=== PATIENT | female | born 1960 | race Caucasian/White ===

== ENCOUNTER 2020-10-03 23:17 | Emergency (ER) | payer MEDICAID, SELFPAY ==
[2020-10-03 23:19] VITALS: BP 98/62; PULSE 96; RESP 18; TEMP 37; O2SAT 98; BMI 18.9
--- NOTE | 2020-10-03 23:48 | EKG12_ITS ---
Test Reason : WOUND Blood Pressure : / mmHG Vent. Rate : 090 BPM Atrial Rate : 090 BPM P-R Int : 092 ms QRS Dur : 072 ms QT Int : 352 ms P-R-T Axes : 071 006 -34 degrees QTc Int : 430 ms Sinus rhythm with short VT with occasional Premature ventricular complexes Low voltage QRS (Limb Leads) Nonspecific ST abnormality Abnormal ECG Confirmed by MAGUI PEÑA, AGUEDA ([id number]), film and video editor JORGE WILL ([id number]) on 10/08/2020 10:21:34 AM Referred By: ANDREINA Confirmed By:AGUEDA KILGORE MD
--- NOTE | 2020-10-04 00:09 | RAD_ITS ---
EXAM: XR CHEST, 1 VIEW : 1960 CLINICAL INDICATION: pain TECHNIQUE: Frontal view of the chest. This report was created using [employer] report generation technology. COMPARISON: 01/08/2016 FINDINGS: LUNGS AND PLEURAL SPACES: Unremarkable. No consolidation or edema. No pneumothorax. No effusion. HEART: Unremarkable. Cardiac silhouette not enlarged. MEDIASTINUM: Central airways and mediastinal contour are unremarkable. BONES/JOINTS: There is extensive orthopedic hardware from posterior fusion of the entire thoracic spine and upper lumbar spine. SOFT TISSUES: Unremarkable. RAD/Chest 1 View (Portable) IMPRESSION: No acute findings in the chest. at 0105 Reported and signed by: Miko Cole MD Electronically Signed: Miko Cole MD at 1:04 EDT Tel , Service support ,
--- NOTE | 2020-10-04 00:32 | EX.ED.DYSGE1 ---
HPI History of Present Illness Chief Complaint: Wound Informant: patient and family Onset/Context/Timing Onset: Days Context: Sudden Onset Timing: Continuous Quality: Red swollen area superior aspect of incision site to the right Location: Abscess per prior documentation Current Severity: Moderate Maximum Severity: Moderate Worsened by: Nothing specific Relieved by: Nothing Associated Symptoms Associated Symptoms: Chills Narrative Narrative: Patient is an elderly woman who had spine surgery/fusion by Dr. London at [facility] 9 weeks ago. She was seen on Thursday by Dr. London. She presents now because of a red swollen area with drainage. She reports shaking chills. She does not believe she had a fever. She denies antibiotic allergies. She denies paresthesia, anesthesia motors. She states she is in pain. Prior similar symptoms: No Recent Illness/Hospitalization: Yes PFSH PFSH Home Medications diclofenac potassium [Cambia] 50 mg PO Q6H PRN PRN 01/08/16 [History Last Taken 01/08/16] Allergy/AdvReac Type Severity Reaction Status Date / Time acetaminophen [From Vicodin] AdvReac Nausea Verified 10/03/20 23:22 codeine AdvReac Nausea Verified 10/03/20 23:22 hydrocodone [From Vicodin] AdvReac Nausea Verified 10/03/20 23:22 Surgical History (Updated 10/04/20 @ 00:[address] Cody Turner MD) H/O spinal fusion Social History (Updated 10/04/20 @ 00:[address] Cody Turner MD) household members: family Smoking Status: Former smoker alcohol intake: current alcohol intake frequency: other substance use type: does not use ROS ROS ED Constitutional Constitutional ED: Reports chills and sweats; Denies fever(s), subjective or weight loss Eyes Eyes: Denies blurry vision, change in vision or diplopia ENT ENT ED: Denies ear pain, rhinorrhea or sore throat Cardiovascular Cardiovascular: Denies chest pain, orthopnea, palpitations, paroxysmal nocturnal dyspnea or racing heartbeat Respiratory/Chest Respiratory/Chest: Denies cough, dyspnea, dyspnea on exertion, orthopnea or paroxysmal nocturnal dyspnea Gastrointestinal Gastrointestinal: Reports nausea; Denies abdominal pain, constipation, diarrhea or vomiting Genitourinary Genitourinary ED: Denies dysuria, hematuria or urinary frequency Musculoskeletal Musculoskeletal: Reports back pain; Denies arthralgias, myalgias or neck pain Integumentary Reports abscess and rash Neurologic Neurologic: Reports weakness; Denies headache(s) or paresthesias Psychiatric Psychiatric: Reports depression Allergic/Immunologic Allergic/Immunologic ED: Denies mouth swelling, tongue swelling or urticaria EXAM Physical Exam Const Vital Signs: 10/03/20 23:19 10/04/20 01:14 Temperature 98.6 F 98.6 F Temperature Source Temporal Temporal Pulse Rate 96 91 Respiratory Rate 18 18 Blood Pressure 98/62 95/60 Blood Pressure Mean 74 71 Pulse Ox 98 98 Oxygen Delivery Method Room Air Room Air Positive well nourished and well developed General Appearance ED: well developed and other Patient appears pale. She does not appear well. Appears uncomfortable. ; Negative for pallor HEENT Reports TM's clear and dry mucous membranes HEENT Narrative: Nares patent. Ears normal. Head is atraumatic normocephalic. Negative for tenderness Tympanic Membrane ED: Yes TM's clear Mouth ED: Yes dry mucous membranes Mouth: dry mucous membranes Eyes PERRL and EOMs intact bilaterally General Eye ED: Yes pale conjunctiva; Negative for scleral icterus Neck no lymphadenopathy, supple and no JVD Neck Narrative: Trachea is midline. There is no carotid bruit. Chest Wall inspection of chest normal and palpation of chest normal Resp normal respiratory effort and clear to auscultation bilaterally Cardio regular rate, regular rhythm, S1 normal heart sound and S2 normal heart sound GI normal to inspection, nondistended, normoactive bowel sounds and non-tender Palpation: soft Back/Spine no CVA tenderness Cervical Spine: Negative for cervical spine tenderness Thoracic Spine / Upper Back: thoracic spinal tenderness and paraspinal muscle tenderness Extremity normal to inspection General Extremety ED: Negative for tenderness Neuro oriented x3, CN's II-XII intact bilaterally and no sensory deficits noted Sensorium / Orientation: alert Motor Exam: strength 5/5 throughout Psych mental status grossly normal Mood & Affect: depressed Skin General Skin Exam: other Patient has an abscess that is to the left of the superior aspect of the incision site with purulent thick green drainage noted. ; Negative for jaundice or pallor MDM MDM MDM Narrative Medical decision making narrative: With shaking chills concern patient is septic. Septic work-up was undertaken. She was started on piperacillin and vancomycin for streptococcal and staphylococcal coverage. Case was discussed with Dr. London. He agrees that the abscess needs to be drained. Will drain and culture. Spoke with the supervisor aircraft maintenance at [facility]. Patient will be transferred. Plan is MedSurg telemetry. If she is septic shock based on lactate will need to rediscuss with supervisor aircraft maintenance and Dr. London. Lab Data Attestation: I reviewed the patient's lab results. Lab results narrative: Lactate is normal. Comprehensive metabolic panel is remarkable sodium 131. Liver enzymes are elevated. There are no comparisons. Coags are normal. White count is pending. Labs: Laboratory Results - last 24 hr 10/04/20 10/04/20 10/04/20 00:25 00:25 00:25 WBC 13.8 H RBC 3.88 L Hgb 11.5 L Hct 36.0 L MCV 92.8 MCH 29.6 MCHC 31.9 L RDW Std Deviation 45.6 H RDW Coeff of Shelly 13.3 Plt Count 407 MPV 8.7 Immature Gran % (Auto) 0.600 Neut % (Auto) 77.7 H Lymph % (Auto) 12.0 L [place] % (Auto) 9.4 Eos % (Auto) 0.2 Baso % (Auto) 0.1 Absolute Neuts (auto) 10.7 H Absolute Lymphs (auto) 1.65 Nucleated RBC % 0 PT 14.3 INR 1.2 APTT 36.7 H Sodium 131 L Potassium 3.8 Chloride 99 Carbon Dioxide 24.0 Anion Gap 8 BUN 17 Creatinine 0.59 Estim Creat Clear Calc 70.43 Est GFR (MDRD) Af Amer 134 Est GFR (MDRD) Non-Af 111 BUN/Creatinine Ratio 28.9 H Glucose 111 H Lactic Acid Calcium 8.9 Total Bilirubin 0.60 AST 53 H ALT 73 H Alkaline Phosphatase 153 H Total Protein 7.8 Albumin 3.5 Globulin 4.3 H Albumin/Globulin Ratio 0.8 L 10/04/20 00:25 WBC RBC Hgb Hct MCV MCH MCHC RDW Std Deviation RDW Coeff of Shelly Plt Count MPV Immature Gran % (Auto) Neut % (Auto) Lymph % (Auto) [place] % (Auto) Eos % (Auto) Baso % (Auto) Absolute Neuts (auto) Absolute Lymphs (auto) Nucleated RBC % PT INR APTT Sodium Potassium Chloride Carbon Dioxide Anion Gap BUN Creatinine Estim Creat Clear Calc Est GFR (MDRD) Af Amer Est GFR (MDRD) Non-Af BUN/Creatinine Ratio Glucose Lactic Acid 0.8 Calcium Total Bilirubin AST ALT Alkaline Phosphatase Total Protein Albumin Globulin Albumin/Globulin Ratio Radiography Chest X-Ray - ED: 1 View, Read by ED Physician (X-ray was interpreted by me at 0105), Heart, Lungs, Mediastinum, Bony Structures and No Acute Disease Diagnostic Testing: Radiology Impression Chest X-Ray 10/04/20 00:09 IMPRESSION: No acute findings in the chest. at 0105 Reported and signed by: Miko Cole MD Electronically Signed: Miko Cole MD at 1:04 EDT Tel , Service support , Procedures Other Procedures Procedure(s): Patient was fit for incision and drainage of abscess. The area was prepped draped sterile manner. The area was nice x1% lidocaine by local transient field block. Incision was made. There was thick green purulent material noted. Loculation was undertaken with more purulent material. Culture was obtained. Cavity was irrigated. Wick was placed. Of note the abscess depth is to the lucio. Size of cavity 4 to 5 cm diameter and depth to the spinal lucio. Discharge Plan Triage Chief Complaint: Wound ED Provider: Cody Turner Dx/Rx/DC Orders Clinical Impression: Complication, postoperative infection, Abscess or cellulitis of back, Sepsis Prescriptions: No Action diclofenac potassium [Cambia] 50 MG Powd.Pack 50 mg PO Q6H PRN PRN (Reason: Pain) RF: 0 Primary Care Provider: [facility] Doctor,Out of Referrals: [facility] Doctor,Out of [Primary Care Provider] - Disposition Disposition: Acute Care Hospital Discharge Location: [facility]
[2020-10-04] MEDS: Morphine 4 MG/ML Syringe IV ×2 (00:45→05:04)
[2020-10-04] MEDS: Ondansetron ODT 4 MG Tablet PO (00:45)
[2020-10-04 00:57] LABS: International Normalized Ratio 1.2; Prothrombin Time (Protime)PT. 14.3 SECONDS (11.7-14.9)
[2020-10-04 00:58] LABS: ALB/GLOB Ratio 0.8 RATIO (0.9-2.4); AST(SGOT) 53 U/L (15-37); Alanine Aminotransfer ALT/SGPT 73 U/L (13-56); Albumin, Serum 3.5 g/dL (3.2-5.0); Alkaline Phosphatase 153 U/L (45-117); Anion Gap 8 (5-15); BUN 17 mg/dL (7-18); BUN/Creat Ratio 28.9 RATIO (10-20); Calcium,Total 8.9 mg/dL (8.5-10.1); Chloride 99 mmol/L (98-107); Creatinine, Serum 0.59 mg/dL (0.55-1.02); EST Glomerular Filtration Rate 111 mL/min (>60); Est Glom Filt Rate - Afr Amer 134 mL/min (>60); Estimated Creatinine Clearance 70.43 ml/min; Globulin 4.3 g/dL (2.2-4.2); Glucose 111 mg/dL (74-106); Partial Thromboplast Time 36.7 Seconds (24.1-36.2); Potassium 3.8 mmol/L (3.5-5.1); Protein, Total 7.8 g/dL (6.4-8.2); Sodium Level 131 mmol/L (136-145)
[2020-10-04 01:05] LABS: Lactic Acid 0.8 mmol/L (0.4-1.9)
[2020-10-04] MEDS: 0.9% Normal Saline 1,000 ML 250 ML IV (01:09)
[2020-10-04] MEDS: Lidocaine 1% (20 ml mdv) 20 ML Vial INFILT (01:10)
[2020-10-04 01:14] VITALS: BP 95/60; PULSE 91; RESP 18; TEMP 37; O2SAT 98
[2020-10-04 01:45] LABS: Absolute Lymphocyte Count 1.65 X10^3/uL (0.83-4.51); Absolute Neutrophil Count 10.7 X10^3/uL (2.0-7.7); Basophil# 0.02 X10^3/uL; Basophil% 0.1 % (0-1); Eosinophil# 0.03 X10^3/uL; Eosinophils% 0.2 % (0-5); Hemoglobin 11.5 g/dL (12.0-15.0); Lymphocyte # 1.65 X10^3/ul (0.83-4.51); Mean Corp Hgb Conc 31.9 g/dL (32-36); Mean Corpuscular Hgb 29.6 pg (27.0-32.0); Mean Corpuscular Volume 92.8 fL (81-99); Mean Platelet Vol. 8.7 fl (6.2-12.0); Monocyte% 9.4 % (0-10); NRBC Flagged by Analyzer 0 % (0-5); Neutrophil # 10.68 X10^3/uL (2.7-7.7); Neutrophil % 77.7 % (47-70); Platelet Count 407 K/mm3 (150-450); RBC Distribution Width CV 13.3 % (11.6-14.6); RBC Distribution Width SD 45.6 fl (35.1-43.9); Red Blood Count 3.88 M/mm3 (4.2-5.4); White Blood Count 13.8 K/mm3 (4.4-11.0)
[2020-10-04 02:00] VITALS: BP 121/83; PULSE 105; RESP 24; TEMP 36.6; O2SAT 96
[2020-10-04 02:52] VITALS: BP 91/61; PULSE 100; RESP 22
[2020-10-04 03:00] VITALS: BP 95/59; PULSE 106; RESP 24; TEMP 36.6; O2SAT 96
[2020-10-04 04:00] VITALS: BP 106/68; PULSE 91; RESP 24; TEMP 37.2; O2SAT 97
== END 2020-10-04 05:41 | disposition short-term general hospital (02) ==
PROVIDERS: Emergency Provider Emergency Medicine
DX: T81.40XA Infection following a procedure, unspecified, initial encounter (principal); T81.44XA Sepsis following a procedure, initial encounter; L03.312 Cellulitis of back [any part except buttock and flank]; L02.212 Cutaneous abscess of back [any part, except buttock and flank]; Y83.8 Other surgical procedures as the cause of abnormal reaction of the patient, or of later complication, without mention of misadventure at the time of the procedure; Y92.9 Unspecified place or not applicable; Z98.890 Other specified postprocedural states; Z87.891 Personal history of nicotine dependence
CPT/HCPCS: 10060; 71045; 80053; 83605; 85025; 85610; 85730; 87040; 87070; 87077; 87149; 87186; 87205; 87426; 93005; 96361; 96365; 96366; 96367; 99285; J7030; J7050; A4216

== ENCOUNTER 2020-10-14 14:03 | Inpatient (IN) | payer MEDICAID, SELFPAY ==
[2020-10-14 14:17] VITALS: BP 154/83; PULSE 86; RESP 16; TEMP 36.9; O2SAT 98; BMI 20.9
[2020-10-14] MEDS: Acetaminophen 500 MG Tablet 1000 MG PO ×2 (15:35→21:41)
[2020-10-14] MEDS: Cefazolin 2 GM in 0.9% Normal Saline 100 ML IV ×2 (15:35→21:42)
[2020-10-14] MEDS: oxyCODONE 5 MG Tablet PO (15:36)
[2020-10-14] MEDS: Pregabalin 50 MG Capsule 100 MG PO ×2 (15:37→23:10)
[2020-10-14] MEDS: 0.9% Saline Lock 10 ML Syringe IV ×3 (15:42→22:35)
--- NOTE | 2020-10-14 18:00 | NURSING ---
Refused to apply TLSO brace, patient using bsc stand pivot for nursing but said she is only to wear the brace when with therapy. 1:1 education provided.
[2020-10-14 19:39] VITALS: BP 143/84; PULSE 87; RESP 16; TEMP 36.9; O2SAT 99
[2020-10-14] MEDS: traZODone 50 MG Tablet PO (21:41)
[2020-10-14] MEDS: tiZANidine HCl 2 MG Tablet 4 MG PO (22:00)
[2020-10-15] MEDS: oxyCODONE 5 MG Tablet PO ×4 (01:37→17:06)
[2020-10-15] MEDS: Pregabalin 50 MG Capsule 100 MG PO ×3 (06:26→22:16)
[2020-10-15] MEDS: Acetaminophen 500 MG Tablet 1000 MG PO ×3 (06:26→22:16)
[2020-10-15] MEDS: 0.9% Saline Lock 10 ML Syringe IV ×3 (06:27→21:42)
[2020-10-15] MEDS: Cefazolin 2 GM in 0.9% Normal Saline 100 ML IV ×3 (06:27→21:39)
[2020-10-15 07:15] VITALS: O2SAT 96
[2020-10-15 07:30] VITALS: BP 129/67; PULSE 76; RESP 18; TEMP 36.2; O2SAT 93
[2020-10-15] MEDS: Vitamin E 400 UNITS Capsule PO (09:23)
[2020-10-15] MEDS: Cholecalciferol (VIT D3) 25 MCG TABLET (1,000 UNITS) PO (09:23)
[2020-10-15] MEDS: Ascorbic Acid 500 MG Tablet PO (09:23)
[2020-10-15] MEDS: tiZANidine HCl 2 MG Tablet PO (09:23)
[2020-10-15] MEDS: Cyanocobalamin 500 MCG Tablet 1000 MCG PO (09:23)
[2020-10-15] MEDS: Senna/Docusate Sodium 1 Tablet 2 TABLET PO (09:26)
[2020-10-15 09:54] LABS: Absolute Lymphocyte Count 1.62 X10^3/uL (0.83-4.51); Absolute Neutrophil Count 8.1 X10^3/uL (2.0-7.7); Basophil# 0.03 X10^3/uL; Basophil% 0.3 % (0-1); Eosinophil# 0.17 X10^3/uL; Eosinophils% 1.5 % (0-5); Hematocrit 24.6 % (37-47); Lymphocyte # 1.62 X10^3/ul (0.83-4.51); Lymphocyte % 13.9 % (19-41); Mean Corp Hgb Conc 32.5 g/dL (32-36); Mean Corpuscular Hgb 29.9 pg (27.0-32.0); Mean Corpuscular Volume 91.8 fL (81-99); Monocyte# 1.48 X10^3/uL; Monocyte% 12.7 % (0-10); NRBC Flagged by Analyzer 0 % (0-5); Neutrophil % 69.2 % (47-70); Platelet Count 492 K/mm3 (150-450); RBC Distribution Width CV 14.8 % (11.6-14.6); RBC Distribution Width SD 49.4 fl (35.1-43.9); Red Blood Count 2.68 M/mm3 (4.2-5.4); White Blood Count 11.7 K/mm3 (4.4-11.0)
[2020-10-15 10:15] LABS: Erythrocyte Sedimentation Rate 54 mm/hr (0-30)
[2020-10-15 10:19] LABS: ALB/GLOB Ratio 0.5 RATIO (0.9-2.4); AST(SGOT) 19 U/L (15-37); Alanine Aminotransfer ALT/SGPT 13 U/L (13-56); Albumin, Serum 1.9 g/dL (3.2-5.0); Alkaline Phosphatase 119 U/L (45-117); Anion Gap 5 (5-15); BUN 8 mg/dL (7-18); BUN/Creat Ratio 14.6 RATIO (10-20); Chloride 103 mmol/L (98-107); Creatinine, Serum 0.55 mg/dL (0.55-1.02); EST Glomerular Filtration Rate 120 mL/min (>60); Est Glom Filt Rate - Afr Amer 145 mL/min (>60); Estimated Creatinine Clearance 82.08 ml/min; Glucose 103 mg/dL (74-106); Magnesium 2.1 mg/dL (1.6-2.6); Phosphorus 3.4 mg/dL (2.5-4.9); Potassium 3.6 mmol/L (3.5-5.1); Protein, Total 5.9 g/dL (6.4-8.2); Sodium Level 134 mmol/L (136-145)
--- NOTE | 2020-10-15 10:53 | PCM.HP.STD ---
HPI - General General Date of Admission: 10/14/20 Chief Complaint: Flu-like symptoms, r/o COVID-19 HPI Narrative IGLESIA STONER, is a 59 YO F who presented to the emergency department at [facility] on 10/03/2020 complaining of a painful draining red swollen area superior to the incision on her back. She also reported shaking chills. She had spine surgery/fusion by Dr. London at [facility] 9 weeks prior to her presentation to the emergency department. All Paperwork from [facility] was reviewed. All lab from this AM is personally reviewed. Hemoglobin is 8.0, down from 11.5 on 10/04/2020. White blood cell count is mildly elevated at 11.7. She has a mild thrombocytosis with a platelet count of 492,000. Differential shows 2.4% immature granulocytes. ESR is elevated at 54. Sodium is mildly decreased at 134 and the potassium is 3.6. Calcium corrected for hypoalbuminemia is within normal limits. The CRP is elevated at 97.6. Afebrile Current blood pressure is 129/67 with a heart rate of 76. She is maintaining appropriate oxygen saturation on room air. Fluid balance overnight is -2660. Nursing reports that she is non-compliant with the back brace. [facility] Medical History (Updated 10/18/20 @ 09:[address] Corry Greenfield DO) Anxiety Depression Home Medications acetaminophen 1,000 mg PO Q8H 10/14/20 [History Last Taken Unknown] ascorbic acid (vitamin C) 500 mg PO DAILY 10/14/20 [History Last Taken Unknown] cefazolin [Ancef] 2 g IV Q8 10/14/20 [History Last Taken Unknown] cholecalciferol (vitamin D3) 25 mcg PO DAILY 10/14/20 [History Last Taken Unknown] cyanocobalamin (vitamin B-12) 1,000 mcg PO DAILY 10/14/20 [History Last Taken Unknown] orphenadrine citrate 100 mg PO BID 10/14/20 [History Last Taken Unknown] oxycodone [OxyIR] 5 mg PO Q4H PRN 10/14/20 [History Last Taken Unknown] pregabalin 100 mg PO Q8 10/14/20 [History Last Taken Unknown] tizanidine [Zanaflex] 2 mg PO BID PRN 10/14/20 [History Last Taken Unknown] tizanidine [Zanaflex] 4 mg PO QHS 10/14/20 [History Last Taken Unknown] trazodone [Desyrel] 50 mg PO QHS PRN 10/14/20 [History Last Taken Unknown] vitamin E 400 unit PO DAILY 10/14/20 [History Last Taken Unknown] Allergy/AdvReac Type Severity Reaction Status Date / Time codeine AdvReac Nausea Verified 10/03/20 23:22 hydrocodone [From Vicodin] AdvReac Nausea Verified 10/03/20 23:22 Surgical History (Updated 10/18/20 @ 10:[address] Corry Greenfield DO) H/O spinal fusion History of cholecystectomy Social History (Updated 10/04/20 @ 00:[address] Cody Turner MD) household members: family Smoking Status: Former smoker alcohol intake: current alcohol intake frequency: other substance use type: does not use ROS Review of Systems ROS Unobtainable: Denies due to encephalopathy, due to endotracheal tube, due to mental condition or due to mental status Constitutional Constitutional: Denies anorexia, change in weight, chills, fatigue, fever(s), night sweats or weakness Eyes Eyes: Denies blurry vision, change in vision, eye pain or loss of vision ENT HEENT: Denies abnormal hearing, dysphagia, headache(s), hearing loss, nasal congestion or sore throat Cardiovascular Cardiovascular: Denies chest pain, dyspnea on exertion, edema, lightheadedness, orthopnea, palpitations, paroxysmal nocturnal dyspnea or syncope Respiratory/Chest Respiratory/Chest: Denies cough, dyspnea, shortness of breath at rest, shortness of breath with exertion or wheezing Gastrointestinal Gastrointestinal: Denies abdominal pain, constipation, diarrhea, dyspepsia, hematemesis, hematochezia, nausea or vomiting Genitourinary Genitourinary: Denies dysuria, hematuria, nocturia, urinary frequency, urinary hesitancy, urinary incontinence or urinary urgency Musculoskeletal Musculoskeletal: Denies back pain, joint pain, joint swelling or neck pain Neurologic Neurologic: Denies confusion, disequilibrium, dizziness, focal weakness, headache(s), paresthesias, seizures or tremor(s) Psychiatric Psychiatric: Denies anxiety, depression, homicidal ideation or suicidal ideation Endocrine Endocrinology: Denies change in body appearance, polydipsia or polyuria Hematologic/Lymphatic Hematologic/Lymphatic: Denies easy bleeding, easy bruising or lymphadenopathy Allergic/Immunologic Allergic/Immunologic: Denies rhinitis, eczemia or asthma Vital Signs Vital Signs Vital Signs: 10/14/20 14:17 10/14/20 19:39 10/14/20 22:00 Temperature 98.4 F 98.4 F Temperature Source Oral Oral Pulse Rate 86 87 Respiratory Rate 16 16 Respiratory Effort Normal Non-Labored Respiratory Depth Normal Respiratory Pattern Normal Blood Pressure 154/83 H 143/84 H Blood Pressure Mean 106 103 Blood Pressure Source Monitor Monitor Blood Pressure Position Sitting Sitting Blood Pressure Location Right Arm Right Arm Pulse Ox 98 99 Oxygen Delivery Method Room Air Room Air 10/15/20 07:15 10/15/20 07:30 Temperature 97.2 F L Temperature Source Oral Pulse Rate 76 Respiratory Rate 18 Respiratory Effort Normal Respiratory Depth Normal Respiratory Pattern Normal Blood Pressure 129/67 H Blood Pressure Mean 87 Blood Pressure Source Monitor Blood Pressure Position Semi-Fowlers Blood Pressure Location Right Arm Pulse Ox 96 93 Oxygen Delivery Method Room Air Room Air Weight Weight: 111 lb Body Mass Index (BMI) 20.9 Physical Exam Const alert, oriented x3 and no apparent distress Constitutional Narrative: Making good eye contact, appropriate. Sitting in the recliner at the bedside doing her exercises. General Appearance: cooperative, comfortable, well kempt and well developed HEENT moist oral mucous membranes HEENT Narrative: no lesions of the mouth Head and Scalp: normocephalic and atraumatic Eyes PERRL and EOMs intact bilaterally Neck no lymphadenopathy, supple, no JVD and no carotid bruits Chest Chest: symmetrical chest wall rise Resp normal respiratory effort, no use of accessory muscles and clear to auscultation bilaterally Resp Narrative: Not tachypneic and no conversational dyspnea. The BS's on the Left posteriorly are diminshed. Cardio regular rate, regular rhythm, S1 normal heart sound, S2 normal heart sound, no murmurs, no rub and no gallops GI GI Narrative: the abd is distneded and she tells me that it has been that way for at least 3 months. She tells me that she is no longer able to burp. It is firm and tender to palpation. She guards when I try to palpate the abd. There are active BS's present. Extremity no clubbing, cyanosis or edema Extremity Narrative: Negative Jose J's and Aggie's signs. The LLE DP and PT are 3/3. The RLE DP is diminished and I was unable to palpate a PT. The popliteal on the R is 3/3. Skin Skin Narrative: No rashes, no skin breakdown. Neuro oriented x3, CN's II-XII intact bilaterally and no focal motor deficits Motor Exam: strength 5/5 throughout Psych affect normal Psych Narrative: Appropriate, making good eye contact. Able to stay on topic and focus. No flight of ideas. Does not appear anxious or depressed. Conversant and relating well to staff. Results Lab / Micro Data Result Diagrams: 10/18/20 06:00 10/18/20 06:00 Labs: Laboratory Results - last 24 hr 10/15/20 09:30: WBC 11.7 H, RBC 2.68 L, Hgb 8.0 L, Hct 24.6 L, MCV 91.8, MCH 29.9, MCHC 32.5, RDW Std Deviation 49.4 H, RDW Coeff of Shelly 14.8 H, Plt Count 492 H, MPV 9.0, Immature Gran % (Auto) 2.400 H, Neut % (Auto) 69.2, Lymph % (Auto) 13.9 L, [place] % (Auto) 12.7 H, Eos % (Auto) 1.5, Baso % (Auto) 0.3, Absolute Neuts (auto) 8.1 H, Absolute Lymphs (auto) 1.62, Nucleated RBC % 0, ESR 54 H 10/15/20 09:30: Sodium 134 L, Potassium 3.6, Chloride 103, Carbon Dioxide 26.0, Anion Gap 5, BUN 8, Creatinine 0.55, Estim Creat Clear Calc 82.08, Est GFR (MDRD) Af Amer 145, Est GFR (MDRD) Non-Af 120, BUN/Creatinine Ratio 14.6, Glucose 103, Calcium 8.0 L, Phosphorus 3.4, Magnesium 2.1, Total Bilirubin 0.20, AST 19, ALT 13, Alkaline Phosphatase 119 H, C-React Prot Ext Range 97.60 H, Total Protein 5.9 L, Albumin 1.9 L, Globulin 4.0, Albumin/Globulin Ratio 0.5 L Assessment & Plan Assessment/Plan (1) Debility: (2) Complication, postoperative infection: (3) Abscess or cellulitis of back: (4) Sepsis: (5) History of spinal surgery: (6) Acute blood loss anemia (ABLA): (7) Insomnia: (8) Hyponatremia: (9) Tobacco dependence in remission: (10) H/O spinal fusion: PLAN: PLAN PT for gait stability OT for ADL's Analgesics as needed Bowel protocol Fall precautions Assess for Anxiety/Depression GI prophylaxis not necessary at this time....no sx and no hx of PUD DVT prophylaxis with RAI doherty and SCD's while in bed Follow up with surgeon and PCP following DC from IP Rehab AM lab including CMP, CBC, Mag and Phos reviewed Add Naprosyn 375 mg BID DC the orphenadrine and continue tizanidine Increase trazodone to 100 mg at 2100 nightly. Continue Lyrica 100 mg every 8 hours Oxycodone 10 mg at 2100 nightly She agrees to wear the back brace anytime she is out of bed. Charges/Coding Visit Charges Inpatient E&M: 96095 Init Hosp L3
--- NOTE | 2020-10-15 10:54 | REHABEVAL_ITS ---
Admission Information Primary Diagnosis:: Debility due to recent Spinal surgery and ostoemyelitis Status Changes from Prescreening?: No changes Identified Actual Problem List:: Infection, Skin Intergrity, Pain, ALteration in Cmfrt, Alteration in Sleep, Mobility Impaired, Self Care Deficit and Alteration-Leisure Activ. Potential Problem List:: DVT, Bleeding, Infection, UTI, Aspiration, Falls, Skin Integrity and Depression Risk of Complications DVT: LMWH and RAI Hose Bleeding: Monitor Lab Values, Nursing to Teach Precautions for anti-coagulation therapy., Wound, if applicable, to be assessed every shift. and Stroke patients assessed for lethargy or change in status. Infection: Clinical Staff to Monitor for S/S of infection: and S/S of infection include fever, redness, warmth, etc. Urinary Tract Infection: Monitor for frequency, burning, discomfort, or incontinence. and Nursing will obtain urine sample for urinalysis and C&S when ordered. Aspiration: Clinical staff will monitor for coughing, drooling, congestion., Speech will evaluate swallowing and dsyphasia. and Nursing will monitor patient swallowing during meals. Falls: Patient will be evaluated for Fall Precautions and Patient will be placed on Fall Precautions as indicated per protocol. Skin Breakdown: Nursing will assess skin daily using assessment tool. and Nursing will place on Skin Breakdown Precautions as indicated. Pain: Clinical staff will assess patient's pain level per protocol., Medications will be given, if needed, and the pain level reassessed. and Other methods: Massage, distraction, decrease stimulus, etc. used PRN. Plan of Care Patient requires physician specializing in physical medicine and rehab oversight to provide close medical supervision of rehab issues including: Pain Management, Sleep Problems, Bowel and Bladder, Medical and co-morbidity Management, DVT prophylaxis, Rehabilitation Leadership and Coordination of treatment team Patient needs Physical Therapy: For a minimum of 1 hour and At least 5 out of 7 days Patient needs Physical Therapy to improve:: Mobility, Strengthening, Transfers, Stretching, ROM, Endurance, Stairs, Gait and Balance Patient needs Occupational Therapy: For a minimum of 1 hour and At least 5 out of 7 days Patient needs Occupational Therapy to improve ADL's incl.: Eating, Grooming, Bathing, Dressing, Toileting, Toilet transfers, Community Reintegration, Higher functioning activities, Household tasks, Adaptive Equipment, Splinting and Other activities as determined Patient requires 24/ Rehabilitation Nursing for: Pain Issues, Identifying and preventing risk factors, Monitoring and reporting current medical conditions, Assisting with ambulation, transfer, and all ADL's, Teaching patients about disease process and medications, Family teaching, Providing safe environment, Bowel and Bladder Issues, Skin integrity and Medication Management Patient needs Clinical Manager/ Case Management for: Discharge Planning, Arranging Home Equipment or Services and Family Interventions Patient needs Dietary and Nutrition Services for: Adequate Nutrition, Nutritional Supplements and Nutritional Education Goals Patient will remain: free from falls and or injury at time of discharge. Patient will perform bed mobility at: MOD I level of assist. Patient will complete transfers from bed to chair at: MOD I level of assist. Patient will ambulate: with LRD and - (300 feet) Patient will complete upper body dressing at: MOD I level of assist. Patient will complete lower body dressing at: MOD I level of assist. Patient will complete toileting at: MOD I level of assist. Patient will perform bathing at: MOD I level of assist. Patient will complete grooming at: MOD I level of assist. Patient will complete home management skills at: MOD I level of assist. Patient will achieve: 12 stairs and - (1 curb step) Patient will have pain level of: of 3 or less Patient's skin will: remain intact Patient will receive: adequate nutrition. Discharge Planning Pt Prognosis for Sig. Practical Improv. w/in Reasonable Time: Good Estimated Length of stay (days): 28 Anticipated D/C Destination: Home with Outpt Therapy Was Preadmission Assessment Accurate?: Yes
[2020-10-15] MEDS: Naproxen 375 MG Tablet PO (17:14)
[2020-10-15 19:50] VITALS: BP 141/85; PULSE 85; RESP 18; TEMP 37; O2SAT 96
[2020-10-15] MEDS: oxyCODONE 5 MG Tablet 10 MG PO (19:58)
[2020-10-15] MEDS: traZODone 100 MG Tablet PO (19:59)
[2020-10-15] MEDS: tiZANidine HCl 2 MG Tablet 4 MG PO (22:17)
[2020-10-16] MEDS: Acetaminophen 500 MG Tablet 1000 MG PO ×3 (05:09→21:38)
[2020-10-16] MEDS: Pregabalin 50 MG Capsule 100 MG PO ×3 (05:09→21:41)
[2020-10-16] MEDS: tiZANidine HCl 2 MG Tablet PO (05:10)
[2020-10-16] MEDS: Cefazolin 2 GM in 0.9% Normal Saline 100 ML IV ×3 (05:25→22:24)
[2020-10-16] MEDS: 0.9% Saline Lock 10 ML Syringe IV ×3 (05:26→15:57)
[2020-10-16 07:10] VITALS: BP 115/62; PULSE 75; RESP 18; TEMP 36.7; O2SAT 92
[2020-10-16 08:30] VITALS: O2SAT 99
[2020-10-16] MEDS: Cholecalciferol (VIT D3) 25 MCG TABLET (1,000 UNITS) PO (09:38)
[2020-10-16] MEDS: Senna/Docusate Sodium 1 Tablet PO (09:38)
[2020-10-16] MEDS: Vitamin E 400 UNITS Capsule PO (09:38)
[2020-10-16] MEDS: Naproxen 375 MG Tablet PO ×2 (09:38→18:42)
[2020-10-16] MEDS: Cyanocobalamin 500 MCG Tablet 1000 MCG PO (09:39)
[2020-10-16] MEDS: Ascorbic Acid 500 MG Tablet PO (09:39)
[2020-10-16] MEDS: oxyCODONE 5 MG Tablet PO ×2 (09:50→15:57)
--- NOTE | 2020-10-16 10:42 | PCM.PN.BLA ---
Progress Note Afebrile VSS Maintaining appropriate oxygen saturation on RA at rest but desaturates to 77% with ambulation. Oral intake is poor Discussed with nursing - Pt is c/o her pain not being adequately relieved and also c/o abd pain. Reviewed the PT/OT notes Medication list reviewed. Mary denies chest pain, hemoptysis, calf pain, lightheadedness, shaking chills and night sweats. She tells me she is sleeping better with the trazodone. She is complaining of upper abdominal pain and distention. Tells me she is having a liquid stool daily. Physical Exam Const alert and oriented x3 Constitutional Narrative: She is pale. She is very talkative and has no tachypnea. HEENT moist oral mucous membranes Resp Resp Narrative: BS's on the left throughout the entire Left lung are diminished. There are no rales, wheezes or rhonchi. she is not tachypneic with rest but she gets winded with exertion and she also gets more pale. Cardio regular rate, regular rhythm and no gallops GI GI Narrative: The abdomen is firm and distended with some tympany. BS's are normal. She guards with palpation when I palpate. No rebound tenderness. No bruits Back/Spine Back/Spine Narrative: the silver dressing is still covering the wound. Extremity Extremity Narrative: Trace ankle edema. No calf pain Skin General Skin Exam: no breakdown Rashes: no rashes Assessment & Plan Assessment/Plan (1) Abdominal distension (gaseous): (2) Thrombocytosis: (3) Hypoxemia: (4) Debility: (5) Abscess or cellulitis of back: (6) H/O spinal fusion: PLAN: 1. CXR, PA and LAT. KUB 2. Check a D-Dimer 3. Try Simethicone for the gaseous distension 4. She is not on pharmacologic DVT prophylaxis due to the recent spinal surgery. will continue with TEDs and SCD's but, with the hypoxemia with exertion I am concerned about a PE. Visit Charges Inpatient E&M: 50153 Subs Hosp L2
[2020-10-16 17:24] LABS: D-Dimer Quantitative (DVT/PE) 5.38 FEU/ug/m (0.27-0.49)
--- NOTE | 2020-10-16 17:36 | NURSING ---
phone call and message sent to dr. bonner regarding critical d-dimer value. awaiting response.
--- NOTE | 2020-10-16 17:46 | RAD_ITS ---
STUDY: X-RAY - ABDOMEN/PELVIS REASON FOR EXAM: Female, 59 years old. abd distention TECHNIQUE: Upright and supine AP abdomen radiographs COMPARISON: Same-day chest radiograph FINDINGS: Left greater than right pleural effusions. There is an unremarkable bowel gas pattern. There is no demonstrated free abdominal air. No organomegaly demonstrated. There are calcified phleboliths in the pelvis. Thoracolumbar posterior instrumented fusion. RAD/Abdomen Single View IMPRESSION: Nonobstructive bowel gas pattern. Bilateral pleural effusions. Electronically Signed: Nehemias Rowland MD at 23:24 EDT Tel , Service support ,
--- NOTE | 2020-10-16 18:19 | RAD_ITS ---
STUDY: X-RAY CHEST REASON FOR EXAM: Female, 59 years old. O2 desaturation while walking. TECHNIQUE: PA and lateral views of the chest. COMPARISON: 10/04/2020. FINDINGS: Left PICC line with its tip in the right atrium.. There is a larger left pleural effusion with subsegmental atelectasis. There is hyperexpansion of the right lung without infiltrate or mass. Normal size heart. Normal mediastinum and adryan. Normal visualized pulmonary arteries. Normal visualized aortic arch and descending thoracic aorta. There is recent fusion of the thoracolumbar spine with surgical clips overlying the midline spine. Normal visualized ribs, clavicles, and shoulders. There is no demonstrated abnormality of the visualized soft tissue structures of the upper abdomen. RAD/Chest PA and Lateral IMPRESSION: 1. Interval development of a sizable left pleural effusion and atelectasis. 2. Interval extension of the thoracolumbar fusion into the upper thoracic spine. 3. The remainder of the findings appears stable. Electronically Signed: Billy Maurer DO at 19:52 EDT Tel [phone], Service support ,
--- NOTE | 2020-10-16 19:03 | CT_ITS ---
STUDY: CTA CHEST REASON FOR EXAM: Female, 59 years old. hypoxemia with elevated D dimer RADIATION DOSAGE (If Supplied By Facility): CTDIvol = ( 5.25 ) mGy, DLP = ( 196.88 ) mGycm TECHNIQUE: The examination was performed with the intravenous administration of IV 75mL Isovue-370. Post-processing of the angiographic images was performed, with multiplanar reformation and 3D reconstruction. Individualized dose optimization techniques were used for this CT. COMPARISON: None. FINDINGS: Normal enhancement of the main pulmonary artery and right and left pulmonary arteries. Normal enhancement of the bilateral peripheral pulmonary arteries. There is no demonstrated pulmonary embolism. Atherosclerotic changes of the aorta without evidence for aneurysm There is no demonstrated aortic dissection. Normal heart and pericardium. Normal mediastinum. Normal hilar regions. Normal visualized trachea and bronchi. The lungs are well expanded. There is a large left pleural effusion with consolidation left lower lobe and a smaller effusion on the right with mild compressive atelectasis at the right base Normal chest wall structures. Dorsal spine demonstrates degenerative change. There is multilevel posterior fusion of the thoracic spine noted Nonspecific ileus is noted CT/CTA Chest W/WO Contrast IMPRESSION: Large left pleural effusion with consolidation of left lower lobe and smaller effusion on the right.. No evidence for pulmonary embolus Electronically Signed: Marquise Anna MD at 21:35 EDT , Service support ,
[2020-10-16] MEDS: oxyCODONE 5 MG Tablet 10 MG PO (19:14)
[2020-10-16 19:24] VITALS: BP 163/75; PULSE 101; RESP 20; TEMP 36.3; O2SAT 98
[2020-10-16 21:00] VITALS: BP 137/84; PULSE 86; RESP 18; TEMP 36.8; O2SAT 97
[2020-10-16] MEDS: traZODone 100 MG Tablet PO (21:35)
[2020-10-16] MEDS: tiZANidine HCl 2 MG Tablet 4 MG PO (21:39)
[2020-10-17] MEDS: oxyCODONE 5 MG Tablet PO ×3 (00:27→16:54)
--- NOTE | 2020-10-17 02:51 | NURSING ---
Pt charting reviewed, agree with LPNs assessment
[2020-10-17] MEDS: Cefazolin 2 GM in 0.9% Normal Saline 100 ML IV ×3 (06:25→22:16)
[2020-10-17] MEDS: Pregabalin 50 MG Capsule 100 MG PO ×3 (07:02→21:37)
[2020-10-17] MEDS: Acetaminophen 500 MG Tablet 1000 MG PO ×3 (07:02→21:37)
[2020-10-17 07:53] VITALS: BP 144/84; PULSE 86; RESP 18; TEMP 36.7; O2SAT 97
[2020-10-17] MEDS: Naproxen 375 MG Tablet PO (09:40)
[2020-10-17] MEDS: Furosemide 40 MG Tablet PO (09:40)
[2020-10-17] MEDS: Ascorbic Acid 500 MG Tablet PO (09:41)
[2020-10-17] MEDS: Cyanocobalamin 500 MCG Tablet 1000 MCG PO (09:41)
[2020-10-17] MEDS: Senna/Docusate Sodium 1 Tablet PO (09:42)
[2020-10-17] MEDS: Cholecalciferol (VIT D3) 25 MCG TABLET (1,000 UNITS) PO (09:42)
[2020-10-17] MEDS: Vitamin E 400 UNITS Capsule PO (09:42)
[2020-10-17 12:27] VITALS: O2SAT 98
[2020-10-17] MEDS: Bisacodyl 5 MG Tablet 10 MG PO (14:25)
[2020-10-17] MEDS: Potassium Chloride Oral Tablet 20 MEQ 40 MEQ PO (14:25)
[2020-10-17 15:00] LABS: Hematocrit 26.2 % (37-47); Hemoglobin 8.5 g/dL (12.0-15.0)
[2020-10-17 15:06] LABS: Potassium 4.4 mmol/L (3.5-5.1)
[2020-10-17] MEDS: Albumin Human 25% (100 mL) 25 GM/100 ML BAG IV (16:48)
--- NOTE | 2020-10-17 18:52 | NURSING ---
pt ambulates to the restroom but refuses to wear back brace even after this RN explains the risks to pt.
[2020-10-17] MEDS: Furosemide 40 MG/4 ML Vial IV (19:20)
[2020-10-17] MEDS: 0.9% Saline Lock 10 ML Syringe IV (19:29)
[2020-10-17 19:30] VITALS: BP 145/91; PULSE 98; RESP 18; TEMP 36.6; O2SAT 94
[2020-10-17] MEDS: oxyCODONE HCl Cr 10 MG Tablet PO (21:37)
[2020-10-17] MEDS: tiZANidine HCl 2 MG Tablet 4 MG PO (21:37)
[2020-10-17] MEDS: traZODone 100 MG Tablet PO (21:47)
[2020-10-18] MEDS: oxyCODONE 5 MG Tablet PO (04:14)
[2020-10-18] MEDS: 0.9% Saline Lock 10 ML Syringe IV ×5 (05:55→23:52)
[2020-10-18] MEDS: Cefazolin 2 GM in 0.9% Normal Saline 100 ML IV ×3 (06:01→22:20)
[2020-10-18 06:18] LABS: Absolute Lymphocyte Count 1.56 X10^3/uL (0.83-4.51); Basophil# 0.03 X10^3/uL; Basophil% 0.3 % (0-1); Eosinophil# 0.19 X10^3/uL; Eosinophils% 2.1 % (0-5); Hematocrit 25.1 % (37-47); Hemoglobin 8.2 g/dL (12.0-15.0); Lymphocyte # 1.56 X10^3/ul (0.83-4.51); Lymphocyte % 17.6 % (19-41); Mean Corp Hgb Conc 32.7 g/dL (32-36); Mean Corpuscular Hgb 29.7 pg (27.0-32.0); Mean Corpuscular Volume 90.9 fL (81-99); Mean Platelet Vol. 8.5 fl (6.2-12.0); Monocyte# 0.95 X10^3/uL; Monocyte% 10.7 % (0-10); NRBC Flagged by Analyzer 0 % (0-5); Neutrophil # 5.99 X10^3/uL (2.7-7.7); Neutrophil % 67.8 % (47-70); Platelet Count 629 K/mm3 (150-450); RBC Distribution Width CV 14.7 % (11.6-14.6); RBC Distribution Width SD 48.5 fl (35.1-43.9); Red Blood Count 2.76 M/mm3 (4.2-5.4); White Blood Count 8.9 K/mm3 (4.4-11.0)
[2020-10-18 06:46] LABS: Anion Gap 6 (5-15); BUN 10 mg/dL (7-18); BUN/Creat Ratio 16.4 RATIO (10-20); Calcium,Total 8.6 mg/dL (8.5-10.1); Chloride 101 mmol/L (98-107); Creatinine, Serum 0.61 mg/dL (0.55-1.02); EST Glomerular Filtration Rate 106 mL/min (>60); Est Glom Filt Rate - Afr Amer 129 mL/min (>60); Estimated Creatinine Clearance 74.01 ml/min; Glucose 94 mg/dL (74-106); Magnesium 1.9 mg/dL (1.6-2.6); Potassium 4.2 mmol/L (3.5-5.1); Sodium Level 135 mmol/L (136-145)
[2020-10-18] MEDS: Acetaminophen 500 MG Tablet 1000 MG PO ×3 (07:05→21:30)
--- NOTE | 2020-10-18 08:27 | PN_ITS ---
Progress Note Afebrile VSS - BP is mildly elevated today and so is the HR at 98 Maintaining appropriate oxygen saturation on RA Oral intake is good Fluid balance for 10/17/2020 was -740 and she received 2 doses of Lasix 40 mg. 4 BM's yesterday Discussed with nursing - Reviewed the PT/OT notes Medication list reviewed. All lab was personally reviewed. The white blood cell count is normal at 8.9. Immature granulocytes is elevated at 1.5%. Hemoglobin is 8.2 and the hematocrit is 25.1. Platelet count is high at 629. Sodium is mildly decreased at 135 and the potassium is 4.2. Serum bicarb is 28. The BUN is 10 with a creatinine of 0.61. Magnesium is 1.9. Her pain is better controlled but she is c/o nausea. She was taking Percocet at home and could only take 1/2 tab due to nausea. She is sleeping better than she has in quite a while. She had several BM's yesterday and her abd is softer and much less painful. She denies cough. She denies SOB. No CP. She has some pain in her neck today and she feels fatigued. Denies shaking chills and night sweats. She denies lightheadedness. Physical Exam Const alert and oriented x3 Constitutional Narrative: She is sitting in bed and does not look to be in any distress. She has better color in her face today. General Appearance: cooperative HEENT moist oral mucous membranes and oropharynx normal Chest Chest: symmetrical chest wall rise Resp Resp Narrative: no rales, wheezes or rhonchi. BS's on the left are markedly di minished compared to the right. She has no conversational dyspnea. She is able to speak in full sentences. Cardio regular rhythm, no rub and no gallops Cardio Narrative: HR is increased but the rhythm is regular with no ectopy. GI GI Narrative: The abdomen is softer today and I am able to palpate the abdomen without her guarding or c/o pain. Extremity Extremity Narrative: Mild ankle edema. No calf pain. She denies radicular pain in her legs.....pain is primarily in the R upper thoracic area. Skin Skin Narrative: The silver dressing remains over the dressing. There is no erythema around the edges of the dressing. She did not complain or withdraw with palpation of the R posterior thorax. There is no swelling. General Skin Exam: no breakdown Rashes: no rashes Neuro CN's II-XII intact bilaterally, moves all extremities and no focal motor deficits Assessment & Plan Assessment/Plan (1) Debility: (2) H/O spinal fusion: (3) History of spinal surgery: (4) Abscess or cellulitis of back: (5) Hypoxemia: (6) Pleural cavity effusion: (7) Acute blood loss anemia (ABLA): (8) Thrombocytosis: (9) Tobacco dependence in remission: (10) Hyponatremia: PLAN: 1. Continue Lasix X 1 more day. 2. DC the Oxycodone and start Tramadol. Continue the Oxycontin 10 mg Q 12H for now. 3. check an amylase and Lipase 4. PT, PTT now 5. thoracentesis - diagnostic and therapeutic. Labs on the pleural fluid ordered. Check a serum LDH and a TP now 6. Orthostatics today. 7. Continue supplemental O2 with exertion and recheck a pulse ox with ambulation following the Thoracentesis. Visit Charges Inpatient E&M: 66905 Subs Hosp L3
[2020-10-18 08:30] VITALS: BP 138/91; PULSE 118; RESP 16; TEMP 36.6; O2SAT 95
--- NOTE | 2020-10-18 09:39 | US_ITS ---
PROCEDURE: ULTRASOUND GUIDED THORACENTESIS. DATE: 10/18/2020. INDICATION: Female, 59 years old. Left pleural effusion. PHYSICIAN: Claus Dooley M.D. PROCEDURE: The risks, benefits, and alternatives to the procedure were explained to the patient. The specific risks of bleeding, infection, and pneumothorax requiring chest tube insertion were discussed and accepted. Written informed consent was obtained. Ultrasonographic evaluation of the left lower pleural space was carried out. An adequate pocket was identified. The patient was placed in the sitting, upright position. The overlying skin was prepped and draped in sterile fashion. 1% lidocaine was administered subcutaneously for local anesthesia. Under ultrasound guidance, a 5 Marshallese thoracentesis needle/catheter system was advanced into the left posterior lower pleural fluid collection. Approximately 800 mL of dark brittany-colored fluid was drained. The catheter was removed, and a sterile dressing was applied. A specimen was collected and sent to the laboratory for analysis, as requested by the referring clinician. The patient tolerated the procedure well. A chest x-ray was ordered. US/Thoracentesis W US IMPRESSION: Ultrasound-guided left thoracentesis. Electronically Signed: Claus Dooley MD at 14:58 EDT , Service support ,
[2020-10-18] MEDS: Cholecalciferol (VIT D3) 25 MCG TABLET (1,000 UNITS) PO (09:41)
[2020-10-18] MEDS: Senna/Docusate Sodium 1 Tablet PO (09:41)
[2020-10-18] MEDS: oxyCODONE HCl Cr 10 MG Tablet PO ×2 (09:41→21:30)
[2020-10-18] MEDS: Ascorbic Acid 500 MG Tablet PO (09:41)
[2020-10-18] MEDS: Cyanocobalamin 500 MCG Tablet 1000 MCG PO (09:41)
[2020-10-18] MEDS: Pregabalin 50 MG Capsule 100 MG PO ×3 (09:41→21:29)
[2020-10-18] MEDS: Naproxen 375 MG Tablet PO (09:41)
[2020-10-18] MEDS: Vitamin E 400 UNITS Capsule PO (09:41)
[2020-10-18] MEDS: Furosemide 40 MG/4 ML Vial IV (09:42)
[2020-10-18] MEDS: Potassium Chloride Oral Tablet 20 MEQ PO (09:42)
[2020-10-18 09:50] VITALS: BP 108/76; BP 117/71; BP 118/76; PULSE 119; PULSE 96
[2020-10-18 11:47] LABS: International Normalized Ratio 1.1; Prothrombin Time (Protime)PT. 13.9 SECONDS (11.7-14.9)
[2020-10-18 11:48] LABS: Partial Thromboplast Time 45.3 Seconds (24.1-36.2)
[2020-10-18 11:49] LABS: ALB/GLOB Ratio 0.7 RATIO (0.9-2.4); Amylase 40 U/L (25-115); Globulin 4.7 g/dL (2.2-4.2); LDH 385 U/L (84-246); Lipase 50 U/L (73-393); Protein, Total 7.9 g/dL (6.4-8.2)
--- NOTE | 2020-10-18 12:20 | CASEMGMT ---
Social Work Team meeting held. Patient present as well as patient spouse. No discharge date set. Patient to continue with further care and treatment on the Rehab Unit. Patient with insurance update due on 10/19/2020 and aware that continued stay is not guaranteed. Team recommending for patient to continue with care. Patient to be re-teamed next week. Will continue to follow. Emiliano STALLWORTH, MANUELITOS
[2020-10-18] MEDS: Ondansetron ODT 4 MG Tablet PO (12:23)
[2020-10-18] MEDS: Lidocaine 2% (20 ml mdv) 20 ML Vial INFILT (13:40)
--- NOTE | 2020-10-18 13:45 | FLU_PTH ---
PATIENT: IGLESIA STONER LOC: RU U#:[id number] AGE/SX: 59/F ROOM: [facility] RE10/14/[address]: Dr. Corry Greenfield, DO : 1960 BED: 1 DIS: 10/29/2020 SPEC #: [id number] RECD: 10/18/20 14:15 STATUS: JADEN REAzalia #: [id number] RAFFI: 10/18/20 13:[address]: Corry Greenfield DEPT: CYTOLOGY RECD BY: Fatimah Arellano ENTERED: 10/19/20 08:12 SP TYPE: Fluid OTHR DR: Trista Primary Care Phys Tissues: THORACIC FLUID Procedures: Special Stain Group II Surgery Specimen Level IV Cytospin Fluid HEADER OPERATION: Thoracentesis PRE-OP DIAGNOSIS: Pleural effusion TISSUE SUBMITTED: Thoracentesis fluid for cytology DIAGNOSIS CYTOLOGY Thoracentesis fluid for cytology (cytospin and cell block): Negative for malignant cells. AM:kelsie 10/22/2020 CYTOLOGY STUDY Slides are reviewed. CYTOLOGY GROSS Received is 90 ml of brittany cloudy fluid labeled with the patient's name and and designated per the requisition as thoracentesis. Submitted for cytology preparation including cell block. / cc 10/19/20 TC:5 CPT: 07069, 77100
[2020-10-18 13:59] VITALS: BP 103/64; BP 107/54; BP 135/59; PULSE 109; PULSE 110; PULSE 117; RESP 20; RESP 22; O2SAT 94; O2SAT 96
--- NOTE | 2020-10-18 14:00 | RAD_ITS ---
STUDY: X-RAY CHEST REASON FOR EXAM: Female, 59 years old. Post thora left side TECHNIQUE: AP inspiration and expiration views. COMPARISON: Comparison is made with prior examination dated 10/16/2020. FINDINGS: The patient is status post left thoracentesis. No evidence of pneumothorax. RAD/Chest Insp/Exp 2 View IMPRESSION: Status post left thoracentesis. No evidence of pneumothorax. Electronically Signed: Claus Dooley MD at 14:21 EDT , Service support ,
[2020-10-18 14:20] LABS: Cytology, Body Fluid / CSF SEE PATHOLOGY REPORT
[2020-10-18 14:35] LABS: Body Fluid Mononuclear WBC # 0.919 10^3/uL; Body Fluid Mononuclear WBC % 84.1 %; Body Fluid Polynuclear WBC # 0.174 10^3/uL; Body Fluid Polynuclear WBC % 15.9 %; Body Fluid Total Cells Counted 1.207 10^3/ul; Red Cell Count/Body Fluid 0.018 10^6/ul; White Blood Count/Body Fluid 1.093 10^3/uL
[2020-10-18 14:37] LABS: Auto B Fluid Analyzer BKGD Ct COUNTS W/IN LIMITS (W/IN LIMITS)
[2020-10-18 14:38] LABS: Appearance/Body Fluid SL CLDY; Color/Body Fluid YELLOW; Source- Body Fluid THORACENTESIS
[2020-10-18] MEDS: traMADol 50 MG Tablet PO (14:46)
[2020-10-18 14:55] LABS: Glucose, Body Fluid 121 mg/dL (40-70); LDH,Body Fluid 508 Units/l (Not Establ.); Protein, Body Fluid 3.7 g/dL (Not Establ.)
[2020-10-18 15:27] LABS: Body Fluid QC Type(s) BF1Q; Lymphocytes 67 %; Monocytes 6 %; Neutrophil (Segs) 18 %; Other Cell Type/BF 9 %
[2020-10-18 19:33] VITALS: BP 125/74; PULSE 112; RESP 16; TEMP 36.7; O2SAT 100
[2020-10-18] MEDS: tiZANidine HCl 2 MG Tablet 4 MG PO (21:29)
[2020-10-18] MEDS: traZODone 100 MG Tablet PO (21:29)
--- NOTE | 2020-10-19 03:34 | NURSING ---
REVIEWED AND AGREE WITH COMPUTER INFORMATION SYSTEMS INSTRUCTOR ASSESSMENT.
[2020-10-19] MEDS: 0.9% Saline Lock 10 ML Syringe IV ×2 (05:56→14:44)
[2020-10-19] MEDS: Cefazolin 2 GM in 0.9% Normal Saline 100 ML IV ×3 (05:57→20:25)
[2020-10-19 06:00] VITALS: BP 101/65; BP 107/66; BP 92/52; PULSE 104; PULSE 111; PULSE 90
[2020-10-19] MEDS: Pregabalin 50 MG Capsule 100 MG PO ×3 (06:03→20:32)
[2020-10-19] MEDS: Acetaminophen 500 MG Tablet 1000 MG PO ×3 (06:03→20:27)
[2020-10-19 07:38] VITALS: BP 107/66; PULSE 111; RESP 16; TEMP 36.7; O2SAT 95
[2020-10-19 07:41] VITALS: O2SAT 97
[2020-10-19] MEDS: Vitamin E 400 UNITS Capsule PO (08:49)
[2020-10-19] MEDS: Ascorbic Acid 500 MG Tablet PO (08:49)
[2020-10-19] MEDS: Senna/Docusate Sodium 1 Tablet PO (08:49)
[2020-10-19] MEDS: Cyanocobalamin 500 MCG Tablet 1000 MCG PO (08:49)
[2020-10-19] MEDS: Cholecalciferol (VIT D3) 25 MCG TABLET (1,000 UNITS) PO (08:49)
[2020-10-19] MEDS: oxyCODONE HCl Cr 10 MG Tablet PO ×2 (08:52→20:32)
--- NOTE | 2020-10-19 11:37 | NURSING ---
Spoke with Chucho at Dr Gaviota London office massage sent to Dr London for jemima nj . Office to call back Thursday10/22/20
[2020-10-19 12:02] LABS: Pathologist Comment/Body Fluid Reviewed
--- NOTE | 2020-10-19 16:39 | NURSING ---
pt noncompliant with wearing back brace. reeducated on the importance of wearing back brace while out of bed. verbalized understanding.
[2020-10-19 19:25] VITALS: BP 126/56; PULSE 90; RESP 16; TEMP 36.8; O2SAT 97
[2020-10-19] MEDS: tiZANidine HCl 2 MG Tablet 4 MG PO (20:28)
[2020-10-19] MEDS: traZODone 100 MG Tablet PO (22:13)
[2020-10-20 01:52] VITALS: PULSE 90; RESP 16
[2020-10-20] MEDS: Cefazolin 2 GM in 0.9% Normal Saline 100 ML IV ×3 (04:57→22:01)
[2020-10-20] MEDS: Pregabalin 50 MG Capsule 100 MG PO ×3 (04:57→20:35)
[2020-10-20] MEDS: Acetaminophen 500 MG Tablet 1000 MG PO ×3 (04:57→22:02)
[2020-10-20 07:30] VITALS: BP 106/55; PULSE 77; RESP 16; TEMP 36.6; O2SAT 98
[2020-10-20] MEDS: oxyCODONE HCl Cr 10 MG Tablet PO ×2 (08:45→22:01)
[2020-10-20] MEDS: Vitamin E 400 UNITS Capsule PO (08:45)
[2020-10-20] MEDS: Senna/Docusate Sodium 1 Tablet PO (08:45)
[2020-10-20] MEDS: Ascorbic Acid 500 MG Tablet PO (08:45)
[2020-10-20] MEDS: Cyanocobalamin 500 MCG Tablet 1000 MCG PO (08:45)
[2020-10-20] MEDS: Cholecalciferol (VIT D3) 25 MCG TABLET (1,000 UNITS) PO (08:45)
[2020-10-20] MEDS: 0.9% Saline Lock 10 ML Syringe IV ×3 (08:50→23:00)
[2020-10-20] MEDS: tiZANidine HCl 2 MG Tablet PO (11:06)
[2020-10-20] MEDS: traMADol 50 MG Tablet PO (13:09)
--- NOTE | 2020-10-20 16:06 | NURSING ---
daily weight completed without back brace on per pt request.
[2020-10-20 19:10] VITALS: BP 119/52; PULSE 95; RESP 18; TEMP 36.8; O2SAT 97
[2020-10-20] MEDS: traZODone 100 MG Tablet PO (20:35)
[2020-10-20] MEDS: tiZANidine HCl 2 MG Tablet 4 MG PO (22:03)
[2020-10-21] MEDS: Acetaminophen 500 MG Tablet 1000 MG PO ×3 (06:26→21:32)
[2020-10-21] MEDS: 0.9% Saline Lock 10 ML Syringe IV ×3 (06:27→21:31)
[2020-10-21] MEDS: Pregabalin 50 MG Capsule 100 MG PO ×3 (06:27→21:33)
[2020-10-21] MEDS: Cefazolin 2 GM in 0.9% Normal Saline 100 ML IV ×3 (06:28→21:33)
[2020-10-21 07:30] VITALS: BP 94/51; PULSE 80; RESP 20; TEMP 36.7; O2SAT 94
[2020-10-21] MEDS: oxyCODONE HCl Cr 10 MG Tablet PO ×2 (08:59→22:21)
[2020-10-21] MEDS: Ascorbic Acid 500 MG Tablet PO (08:59)
[2020-10-21] MEDS: Cholecalciferol (VIT D3) 25 MCG TABLET (1,000 UNITS) PO (08:59)
[2020-10-21] MEDS: Vitamin E 400 UNITS Capsule PO (08:59)
[2020-10-21] MEDS: Senna/Docusate Sodium 1 Tablet PO (09:00)
[2020-10-21] MEDS: Cyanocobalamin 500 MCG Tablet 1000 MCG PO (09:00)
--- NOTE | 2020-10-21 09:00 | RAD_ITS ---
STUDY: X-RAY CHEST REASON FOR EXAM: Female, 59 years old. Fever and cough TECHNIQUE: PA and lateral views of the chest. COMPARISON: 10/18/2020 FINDINGS: Stable appearance of the left-sided PICC line Lungs are hyperexpanded with chronic interstitial changes and lingular atelectasis or early infiltrate. No demonstrated effusions. Normal size heart. Normal mediastinum and adryan. Normal visualized pulmonary arteries. Normal visualized aortic arch and descending thoracic aorta. Surgical hardware throughout the thoracic spine free of complication. Surgical skin tyra noted in the midline. Normal visualized ribs, clavicles, and shoulders. There is no demonstrated abnormality of the visualized soft tissue structures of the upper abdomen. RAD/Chest PA and Lateral IMPRESSION: Hyperexpanded lungs with superimposed lingular atelectasis or early infiltrate. Follow-up recommended to show resolution Electronically Signed: Ray Kovacs MD at 10:17 EDT , Service support ,
--- NOTE | 2020-10-21 11:00 | NURSING ---
Dr. Greenfield aware of CXR report. IS encouraged with patient and she demonstrated appropriately. Denies sob.
[2020-10-21] MEDS: tiZANidine HCl 2 MG Tablet PO (14:02)
[2020-10-21] MEDS: traMADol 50 MG Tablet PO (16:12)
[2020-10-21 19:00] VITALS: BP 127/72; PULSE 87; RESP 18; TEMP 36.8; O2SAT 96
[2020-10-21] MEDS: traZODone 100 MG Tablet PO (21:35)
[2020-10-21] MEDS: tiZANidine HCl 2 MG Tablet 4 MG PO (22:21)
[2020-10-22] MEDS: Pregabalin 50 MG Capsule 100 MG PO ×2 (05:02→14:53)
[2020-10-22] MEDS: Cefazolin 2 GM in 0.9% Normal Saline 100 ML IV ×3 (05:02→17:25)
[2020-10-22] MEDS: Acetaminophen 500 MG Tablet 1000 MG PO ×3 (05:02→21:24)
[2020-10-22 05:42] LABS: Absolute Lymphocyte Count 2.38 X10^3/uL (0.83-4.51); Absolute Neutrophil Count 3.8 X10^3/uL (2.0-7.7); Basophil# 0.07 X10^3/uL; Eosinophil# 0.18 X10^3/uL; Eosinophils% 2.5 % (0-5); Hematocrit 25.5 % (37-47); Hemoglobin 8.1 g/dL (12.0-15.0); Lymphocyte # 2.38 X10^3/ul (0.83-4.51); Lymphocyte % 32.7 % (19-41); Mean Corp Hgb Conc 31.8 g/dL (32-36); Mean Corpuscular Hgb 29.3 pg (27.0-32.0); Mean Corpuscular Volume 92.4 fL (81-99); Mean Platelet Vol. 8.4 fl (6.2-12.0); Monocyte# 0.77 X10^3/uL; Monocyte% 10.6 % (0-10); NRBC Flagged by Analyzer 0 % (0-5); Neutrophil % 52.2 % (47-70); Platelet Count 595 K/mm3 (150-450); RBC Distribution Width CV 14.6 % (11.6-14.6); RBC Distribution Width SD 48.9 fl (35.1-43.9); Red Blood Count 2.76 M/mm3 (4.2-5.4); White Blood Count 7.3 K/mm3 (4.4-11.0)
[2020-10-22 06:16] LABS: ALB/GLOB Ratio 0.6 RATIO (0.9-2.4); AST(SGOT) 32 U/L (15-37); Alanine Aminotransfer ALT/SGPT 14 U/L (13-56); Albumin, Serum 2.6 g/dL (3.2-5.0); Alkaline Phosphatase 142 U/L (45-117); Anion Gap 6 (5-15); BUN 15 mg/dL (7-18); BUN/Creat Ratio 26.1 RATIO (10-20); Calcium,Total 8.9 mg/dL (8.5-10.1); Chloride 101 mmol/L (98-107); Creatinine, Serum 0.58 mg/dL (0.55-1.02); EST Glomerular Filtration Rate 114 mL/min (>60); Est Glom Filt Rate - Afr Amer 137 mL/min (>60); Estimated Creatinine Clearance 73.31 ml/min; Globulin 4.6 g/dL (2.2-4.2); Glucose 95 mg/dL (74-106); Potassium 4.5 mmol/L (3.5-5.1); Protein, Total 7.2 g/dL (6.4-8.2); Sodium Level 133 mmol/L (136-145)
[2020-10-22 06:20] LABS: Erythrocyte Sedimentation Rate 68 mm/hr (0-30)
[2020-10-22] MEDS: 0.9% Saline Lock 10 ML Syringe IV ×3 (06:20→21:15)
[2020-10-22] MEDS: Senna/Docusate Sodium 1 Tablet PO (07:58)
[2020-10-22] MEDS: Vitamin E 400 UNITS Capsule PO (07:58)
[2020-10-22] MEDS: traMADol 50 MG Tablet PO (07:58)
[2020-10-22] MEDS: Ascorbic Acid 500 MG Tablet PO (07:58)
[2020-10-22] MEDS: Cyanocobalamin 500 MCG Tablet 1000 MCG PO (07:58)
[2020-10-22] MEDS: Cholecalciferol (VIT D3) 25 MCG TABLET (1,000 UNITS) PO (07:58)
[2020-10-22 08:00] VITALS: BP 104/59; PULSE 77; RESP 16; TEMP 36.3; O2SAT 97
--- NOTE | 2020-10-22 09:29 | PCM.PN.BLA ---
Progress Note Afebrile VSS Maintaining appropriate oxygen saturation on RA Oral intake is good Discussed with nursing - no problems that need addressed Reviewed the PT/OT notes Medication list reviewed. She is averaging 1 Tramadol a day. She is also on Oxycontin 10 mg Q 12H Repeat CXR yesterday showed no pleural effusion. there is atelectasis vs infiltrate on the left and increased interstitial markings in the bases. There is also hyperexpansion and kyphosis. The culture of the pleural fluid had no growth. She remains on Unasyn. All lab was personally reviewed. The white blood cell count is normal at 7.3 and there are 1% immature granulocytes. Hemoglobin is stable at 8.1 and the platelets remain elevated at 595,000. The ESR today is still 68, up from 54 on 10/15/2020. Sodium is low at 133 and the potassium is 4.5. BUN is 15 and the creatinine is 0.58. The CRP is 19.7 today which is down from 97.6 on 10/15/2020. Cytology is still pending. Her primary complaint today is pain along the trapezius ridge BL. She denies radiation of pain down into the arms and also denies tingling in her fingers. She tells me that the pain medication does not help. She blames the surgeon for her pain and tells me that if he had done the second surgery correctly she would not have needed the third surgery. I found out today that she informed one of the staff that prior to presenting to rehab she went home and took a bath and then came to the hospital. She has not been complaint with the brace. She accepts no responsibility for any of the poor outcomes. She denies CP, SOB, hemoptysis, N/V/abd pain. She is having regular formed BM's now. She is not coughing and she is no longer requiring any O2 supplementation with exertion. Physical Exam Const Constitutional Narrative: Pale, angry that she had to have a third back surgery and come to rehab and that she has pain associated with all of this. General Appearance: other she is cooperative to a degree. She wants to determine what therapy is appropriate for her rather than the therapists. she is always wanting to push herself and do more than she maybe should. Resp Resp Narrative: the coarse crackles in the left base are nearly gone The R lung is clear. She has no conversational dyspnea. Effort and Inspection: able to speak in complete sentences Cardio regular rate, regular rhythm, no murmurs and no gallops Cardio Narrative: no ectopy GI normal to inspection, nondistended, normoactive bowel sounds Back/Spine Back/Spine Narrative: there is tightness in the trapezius ridge BL. There is no erythema and no knots. General Back: Negative for CVA tenderness Skin Skin Narrative: then incision is intact and there is no discharge and no erythema around the incision General Skin Exam: no breakdown Rashes: no rashes Assessment & Plan Assessment/Plan (1) Abdominal distension (gaseous): (2) Thrombocytosis: (3) Pleural cavity effusion: (4) Hypoxemia: (5) Debility: (6) Acute blood loss anemia (ABLA): (7) Abscess or cellulitis of back: (8) H/O spinal fusion: PLAN: 1. cytology is still pending. I suspect the pleural effusion was a parapneumonic effusion even though the culture is negative. It had a lot of WBC's and it has not recurred following the thoracentesis. 2. She would like to be discharged and we talked about this on TEAM rounds. She will not be able to be off antibiotics until 11/16/20. Insurance will not pay for her to have IV antibiotics at home. She will need to stay in rehab or be transferred to an SNF. Will discuss with the patient. 3. She with follow up with the neurosurgeon this week and he will take the tyra out. She will get a plain XRAY but, if there is any additional imaging ordered she will have to wait until she is discharged from rehab or she will need to be transferred to the hospital the neurosurgeon works out of. 4. I encouraged her to be compliant with the instructions given by the therapists as it is for her protection. She is constantly wanting to overdue. Visit Charges Inpatient E&M: 82176 Subs Hosp L2
[2020-10-22] MEDS: oxyCODONE HCl Cr 10 MG Tablet PO ×2 (09:55→21:24)
[2020-10-22] MEDS: Neuropathy Pain Cream Compound 60 CLICK TUBE TOPICAL ×2 (14:53→21:03)
--- NOTE | 2020-10-22 15:56 | NURSING ---
Received call from Maxwell at Dr London's office he wants tyra removed at her f/u appt.
--- NOTE | 2020-10-22 18:46 | NURSING ---
pt non compliant with using her TSLO back brace. reeducated in the importance. verbalized understatnding
[2020-10-22 18:53] VITALS: BP 113/74; PULSE 86; RESP 16; TEMP 36.8; O2SAT 99
[2020-10-22] MEDS: traZODone 100 MG Tablet PO (20:59)
[2020-10-22] MEDS: tiZANidine HCl 2 MG Tablet 4 MG PO (21:04)
[2020-10-22] MEDS: Pregabalin 25 MG Capsule PO (21:24)
[2020-10-22] MEDS: Pregabalin 75 MG Capsule PO (21:24)
[2020-10-22 22:00] VITALS: PULSE 79; RESP 16
[2020-10-23] MEDS: Pregabalin 25 MG Capsule PO ×3 (06:20→20:47)
[2020-10-23] MEDS: Pregabalin 75 MG Capsule PO ×3 (06:20→20:47)
[2020-10-23] MEDS: Acetaminophen 500 MG Tablet 1000 MG PO ×3 (06:21→20:39)
[2020-10-23] MEDS: Cefazolin 2 GM in 0.9% Normal Saline 100 ML IV ×3 (06:38→20:48)
[2020-10-23] MEDS: 0.9% Saline Lock 10 ML Syringe IV ×3 (06:38→14:17)
[2020-10-23 08:47] VITALS: BP 101/74; PULSE 79; RESP 16; TEMP 36.7; O2SAT 97
[2020-10-23] MEDS: oxyCODONE HCl Cr 10 MG Tablet PO ×2 (09:52→20:47)
[2020-10-23] MEDS: Neuropathy Pain Cream Compound 60 CLICK TUBE TOPICAL ×2 (09:52→20:38)
[2020-10-23] MEDS: Cyanocobalamin 500 MCG Tablet 1000 MCG PO (09:52)
[2020-10-23] MEDS: Ascorbic Acid 500 MG Tablet PO (09:52)
[2020-10-23] MEDS: Senna/Docusate Sodium 1 Tablet PO (09:52)
[2020-10-23] MEDS: Vitamin E 400 UNITS Capsule PO (09:52)
[2020-10-23] MEDS: Cholecalciferol (VIT D3) 25 MCG TABLET (1,000 UNITS) PO (09:52)
[2020-10-23 20:00] VITALS: BP 113/63; PULSE 74; RESP 16; TEMP 36.6; O2SAT 98
[2020-10-23] MEDS: tiZANidine HCl 2 MG Tablet 4 MG PO (20:38)
[2020-10-23] MEDS: traZODone 100 MG Tablet PO (21:55)
[2020-10-24] MEDS: Pregabalin 25 MG Capsule PO ×3 (05:51→21:35)
[2020-10-24] MEDS: Cefazolin 2 GM in 0.9% Normal Saline 100 ML IV ×3 (05:51→21:34)
[2020-10-24] MEDS: Acetaminophen 500 MG Tablet 1000 MG PO ×3 (05:51→21:36)
[2020-10-24] MEDS: Pregabalin 75 MG Capsule PO ×3 (05:51→21:35)
[2020-10-24 08:46] VITALS: BP 121/82; PULSE 94; RESP 18; TEMP 36.7; O2SAT 97
--- NOTE | 2020-10-24 09:28 | NURSING ---
this RN overhears pt tell OT staff member that that she will not use her walker when ambulating to the restroom for morning shower. OT staff member reminds pt of safety measures when ambulating in room, pt still refuses to use wheeled walker.
[2020-10-24] MEDS: Ascorbic Acid 500 MG Tablet PO (09:55)
[2020-10-24] MEDS: Senna/Docusate Sodium 1 Tablet PO (09:55)
[2020-10-24] MEDS: Cholecalciferol (VIT D3) 25 MCG TABLET (1,000 UNITS) PO (09:55)
[2020-10-24] MEDS: oxyCODONE HCl Cr 10 MG Tablet PO ×2 (09:55→21:36)
[2020-10-24] MEDS: Cyanocobalamin 500 MCG Tablet 1000 MCG PO (09:55)
[2020-10-24] MEDS: Neuropathy Pain Cream Compound 60 CLICK TUBE TOPICAL (09:55)
[2020-10-24] MEDS: Vitamin E 400 UNITS Capsule PO (09:56)
--- NOTE | 2020-10-24 16:09 | NURSING ---
pt noted to have gotten out of bed and self transferred into the wheelchair without staff assistance and without the application of back brace. pt noted to have not used an assistive device as well. pt educated on pt safety and states I know, I know.
--- NOTE | 2020-10-24 18:09 | NURSING ---
when this nurse went in to pt room to pass 1800 meds, pt was noted to be attempting to get out of bed and sitting on the edge of the bed. The pt tells this RN that she really has to use the bathroom. this RN attempts to hand pt her back brace and walker and pt refuses to use walker for ambulation and states that she doesn't have time for the back brace. This RN reminds pt of pt safety with walker and pt states that she doesn't have time to use the walker and when she needs to use the bathroom, she needs to do it now and there is no waiting. This RN attempts to hold onto pt and pt becomes upset with RN and states that this RN does not need to hold on to pt and she will be fine. pt also states that therapy does not hold on to her when she ambulates so nursing staff should not have to. This RN reminds pt that she is not using an assistive device at this time and this RN would feel better with a hand on pt. Pt is assisted safely to toilet and when pt sits down she tells this RN that she won't be getting any more therapy so she doesn't understand why staff has to assist her with her toileting. This RN tells pt that we do not have a discharge date at this time and staff needs to assist to the restroom so that the pt can remain safe and fall free. pt tells this RN that there will be a discharge date set and she will not be using her call light until she leaves. pt again states that when she needs to use the bathroom, she needs to go right now. pt states that she does not have time to wait on staff during the middle of the night to assist to restroom and she will not be using the call light and she will sneak into the bathroom when she has to go. This RN reminds pt that pt needs to use call light for safety purposes especially at night and staff would be more than happy to assist her to the restroom. pt remains adamant that she will not be using the call light. This RN assists pt safely back into bed with call light within reach. This RN walks out of the room and then hears pt yelling for this RN. pt is found standing at the window in room watching the helicopter that is landing. This RN safely assists pt back to bed and once again reminds pt of using call light and safety measures. call light within reach at this time. pt denies further needs. will continue to monitor and assess for toileting needs upon each hourly round.
[2020-10-24 20:21] VITALS: BP 136/77; PULSE 86; RESP 14; TEMP 36.7; O2SAT 100
[2020-10-24] MEDS: tiZANidine HCl 2 MG Tablet 4 MG PO (21:36)
[2020-10-24] MEDS: 0.9% Saline Lock 10 ML Syringe IV (21:37)
[2020-10-24] MEDS: traZODone 100 MG Tablet PO (23:41)
[2020-10-25] MEDS: Cefazolin 2 GM in 0.9% Normal Saline 100 ML IV ×3 (06:04→22:19)
[2020-10-25] MEDS: Pregabalin 25 MG Capsule PO ×3 (06:09→22:19)
[2020-10-25] MEDS: 0.9% Saline Lock 10 ML Syringe IV ×3 (06:09→23:14)
[2020-10-25] MEDS: Pregabalin 75 MG Capsule PO ×3 (06:10→23:13)
[2020-10-25] MEDS: Acetaminophen 500 MG Tablet 1000 MG PO ×3 (06:10→22:18)
[2020-10-25 08:16] VITALS: BP 105/66; PULSE 85; RESP 18; TEMP 36.4; O2SAT 98
--- NOTE | 2020-10-25 09:13 | PN_ITS ---
Progress Note Non-compliance is increasing. She is not using the call light and is ambulating in the room independently. She tells the therapists what she is going to do and not vice versa. Ashleigh was seen on TEAM rounds today. No family was present and she did not want her called. Afebrile VSS Maintaining appropriate oxygen saturation on RA Oral intake is good Discussed with nursing - no problems that need addressed Reviewed the PT/OT/ST notes Medication list reviewed. she has not taken any Tramadol since the . She remains on Oxycontin 10 mg q 12H She states her pain is adequately controlled. She denies nausea/vomiting/abdominal pain, lightheadedness, chest pain, shortness of breath, dysuria, shaking chills. Physical Exam Const alert, oriented x3 and no apparent distress Constitutional Narrative: She is sitting on the bed and she appears in no distress. General Appearance: cooperative, comfortable, well kempt and well developed HEENT moist oral mucous membranes Chest Chest: symmetrical chest wall rise Resp normal respiratory effort, no use of accessory muscles and clear to auscultation bilaterally Effort and Inspection: able to speak in complete sentences Cardio regular rate, regular rhythm, S1 normal heart sound, S2 normal heart sound, no murmurs, no rub and no gallops Cardio Narrative: no ectopy GI normal to inspection, nondistended, normoactive bowel sounds GI Narrative: The abdomen is soft, ND, NT and she has normal BS's. She is having formed BM's with no liquid stool any more. Back/Spine Back/Spine Narrative: She is no longer c/o the pain in the area of the trapezius ridge General Back: Negative for CVA tenderness Extremity no clubbing, cyanosis or edema Extremity Narrative: Trace ankle edema. No calf pain Skin Skin Narrative: then incision is intact and there is no discharge and no erythema around the incision General Skin Exam: no breakdown Rashes: no rashes Neuro oriented x3, CN's II-XII intact bilaterally, moves all extremities and no focal motor deficits Motor Exam: strength 5/5 throughout Psych affect normal Psych Narrative: Appropriate, making good eye contact. Able to stay on topic and focus. No flight of ideas. Does not appear anxious or depressed. She is angry and lets everyone know it. she would like to go home but she tells me that she recognizes that the antibiotics are necessary and if she must she will go to an SNF or stay in rehab. Assessment & Plan Assessment/Plan (1) Thrombocytosis: (2) Debility: (3) Acute blood loss anemia (ABLA): (4) Abscess or cellulitis of back: (5) H/O spinal fusion: PLAN: 1. recheck a cbc with diff, BMP, ESR and CRP on Thursday. 2. Her will take he to the appt with the neurosurgeon tomorrow 3. ROSA MARIA is working on getting home antibiotics for her and what the cost will be. 4. Ashleigh tells me that her son's david who is a labor crew supervisor has agreed to do the administration of the antibiotics if she is able to go home. She will need to follow up with ID prior to the antibiotics being discontinued 5. she was wearing the brace while ambulating in the halls today 6. We discussed getting her off the Oxycontin and onto Tramadol for pain. We will DC the HS dose at her request and she will continue to get the AM dose. re-evaluate in a few days. Visit Charges Inpatient E&M: 52713 Subs Hosp L2
[2020-10-25] MEDS: Neuropathy Pain Cream Compound 60 CLICK TUBE TOPICAL ×2 (09:25→22:18)
[2020-10-25] MEDS: oxyCODONE HCl Cr 10 MG Tablet PO (09:25)
[2020-10-25] MEDS: Senna/Docusate Sodium 1 Tablet PO (09:25)
[2020-10-25] MEDS: Ascorbic Acid 500 MG Tablet PO (09:26)
[2020-10-25] MEDS: Cholecalciferol (VIT D3) 25 MCG TABLET (1,000 UNITS) PO (09:26)
[2020-10-25] MEDS: Vitamin E 400 UNITS Capsule PO (09:26)
[2020-10-25] MEDS: Cyanocobalamin 500 MCG Tablet 1000 MCG PO (09:26)
--- NOTE | 2020-10-25 15:46 | CASEMGMT ---
Social Work IDT met with patient for Team meeting. Explained insurance NRD 10/29. Discussed options for IV ATB as pt is progressing well with therapy. Discussed DC to SNF or home. Pt stated her son's david' is in the medical field and can administer IVs Q8 for the duration. SW sent referral to [facility] for cost at home. Pt prefers to DC home. [facility] states pt has 100% coverage at home. Will meet again with pt to discuss DC plans. Jocelyn Tavera, [employer] L[employer]URER
--- NOTE | 2020-10-25 16:22 | NURSING ---
pt uses call light and tells this RN that she needs to use the restroom. This RN responds and attempts to assist pt with wheeled walker and back brace. pt tells this RN no when handed the walker and no to the back brace. pt begins ambulating while holding on to furniture to the restroom. this RN reminds pt of safety measures and the benefit of using the walker and the importance of back brace. pt states that she is fine and does not need the assistive device or back brace. pt assisted back into bed and call light within reach. denies further needs.
[2020-10-25 20:26] VITALS: BP 115/67; PULSE 88; RESP 16; TEMP 36.7; O2SAT 99
[2020-10-25] MEDS: traZODone 100 MG Tablet PO (22:31)
[2020-10-25] MEDS: tiZANidine HCl 2 MG Tablet 4 MG PO (23:13)
[2020-10-26] MEDS: Cefazolin 2 GM in 0.9% Normal Saline 100 ML IV ×3 (04:42→22:28)
[2020-10-26 04:55] VITALS: BP 99/59; PULSE 72; RESP 12; TEMP 36.3; O2SAT 98
[2020-10-26] MEDS: Pregabalin 75 MG Capsule PO ×3 (05:34→22:29)
[2020-10-26] MEDS: Pregabalin 25 MG Capsule PO ×3 (05:34→22:28)
[2020-10-26] MEDS: Acetaminophen 500 MG Tablet 1000 MG PO ×3 (05:35→22:29)
[2020-10-26] MEDS: 0.9% Saline Lock 10 ML Syringe IV ×4 (05:37→23:52)
--- NOTE | 2020-10-26 06:30 | NURSING ---
PT TAKEN TO MAIN ENTRANCE TO MEET HER WHO WILL TRANSPORT PT TO TODAY'S APPTS. PT TAKEN BY WHEELCHAIR TO ENTRANCE BY ATHLETIC EVENTS SCORER STAFF. PT GIVEN PACKET OF INFORMATION FOR PHYSICIAN APPT. PT REFUSES TO TAKE WALKER TO USE AT APPT.
[2020-10-26] MEDS: oxyCODONE HCl Cr 10 MG Tablet PO (12:31)
[2020-10-26] MEDS: Cholecalciferol (VIT D3) 25 MCG TABLET (1,000 UNITS) PO (12:31)
[2020-10-26] MEDS: Vitamin E 400 UNITS Capsule PO (12:31)
[2020-10-26] MEDS: Neuropathy Pain Cream Compound 60 CLICK TUBE TOPICAL ×2 (12:31→22:29)
[2020-10-26] MEDS: Cyanocobalamin 500 MCG Tablet 1000 MCG PO (12:31)
[2020-10-26] MEDS: Ascorbic Acid 500 MG Tablet PO (12:32)
--- NOTE | 2020-10-26 14:23 | CASEMGMT ---
Addendum entered by Jocelyn Tavera 10/29/20 16:28: [facility] Continued with communication to Evita at [facility] and the patient. Pt is comfortable just having her future DIL to complete IV care and could come into the hospital for weekly lab draw if HHC is not successful. Evita is okay with that plan as well and asked to speak with DIL to confirm comfortability. Provided contact information with pt permission. Referred to [facility] Will await outcome. Addendum entered by Jocelyn Tavera 10/29/20 12:12: [facility] can not accept. Referral made to [facility] Addendum entered by Jocelyn Tavera 10/26/20 14:33: Provided pt with PCP list to get established. Original Note: Social Work Spoke with pt about 100% coverage for IVs at home - pt requesting to DC 10/29. Spoke with IDT and agreeable. Referred to [facility] for SN. No DME needs. Plan: DC home 10/29 with IV ATB through [facility], [facility] SN. FEDERICA MinW
[2020-10-26 20:04] VITALS: BP 133/73; PULSE 79; RESP 18; TEMP 36.8; O2SAT 93
[2020-10-26] MEDS: traZODone 100 MG Tablet PO (22:27)
[2020-10-26] MEDS: tiZANidine HCl 2 MG Tablet 4 MG PO (22:29)
[2020-10-27] MEDS: Pregabalin 25 MG Capsule PO ×3 (05:38→21:15)
[2020-10-27] MEDS: Pregabalin 75 MG Capsule PO ×3 (05:38→21:15)
[2020-10-27] MEDS: Cefazolin 2 GM in 0.9% Normal Saline 100 ML IV ×3 (05:38→21:30)
[2020-10-27] MEDS: Acetaminophen 500 MG Tablet 1000 MG PO ×3 (05:38→21:14)
[2020-10-27] MEDS: 0.9% Saline Lock 10 ML Syringe IV ×2 (05:40→21:03)
[2020-10-27 09:25] VITALS: BP 100/81; PULSE 85; RESP 16; TEMP 36.6; O2SAT 100
[2020-10-27] MEDS: Vitamin E 400 UNITS Capsule PO (09:39)
[2020-10-27] MEDS: Cyanocobalamin 500 MCG Tablet 1000 MCG PO (09:39)
[2020-10-27] MEDS: oxyCODONE HCl Cr 10 MG Tablet PO (09:39)
[2020-10-27] MEDS: Ascorbic Acid 500 MG Tablet PO (09:40)
[2020-10-27] MEDS: Senna/Docusate Sodium 1 Tablet PO (09:41)
[2020-10-27] MEDS: Cholecalciferol (VIT D3) 25 MCG TABLET (1,000 UNITS) PO (09:41)
[2020-10-27] MEDS: Neuropathy Pain Cream Compound 60 CLICK TUBE TOPICAL ×2 (11:12→21:08)
[2020-10-27 19:47] VITALS: BP 131/73; PULSE 89; RESP 16; TEMP 36.8; O2SAT 100
[2020-10-27] MEDS: traZODone 100 MG Tablet PO (20:58)
[2020-10-27] MEDS: tiZANidine HCl 2 MG Tablet 4 MG PO (21:14)
[2020-10-27 21:37] VITALS: PULSE 89; RESP 16; O2SAT 100
[2020-10-28] MEDS: Acetaminophen 500 MG Tablet 1000 MG PO ×3 (06:46→21:11)
[2020-10-28] MEDS: Pregabalin 75 MG Capsule PO ×3 (06:47→21:10)
[2020-10-28] MEDS: Pregabalin 25 MG Capsule PO ×3 (06:47→21:11)
[2020-10-28] MEDS: Cefazolin 2 GM in 0.9% Normal Saline 100 ML IV ×3 (06:49→21:10)
[2020-10-28 07:06] VITALS: BP 159/70; PULSE 74
[2020-10-28 08:27] VITALS: BP 106/69; PULSE 87; RESP 16; TEMP 37.1; O2SAT 98
[2020-10-28] MEDS: oxyCODONE HCl Cr 10 MG Tablet PO (08:58)
[2020-10-28] MEDS: Cyanocobalamin 500 MCG Tablet 1000 MCG PO (08:59)
[2020-10-28] MEDS: Senna/Docusate Sodium 1 Tablet PO (08:59)
[2020-10-28] MEDS: Cholecalciferol (VIT D3) 25 MCG TABLET (1,000 UNITS) PO (08:59)
[2020-10-28] MEDS: Vitamin E 400 UNITS Capsule PO (08:59)
[2020-10-28] MEDS: Ascorbic Acid 500 MG Tablet PO (08:59)
[2020-10-28] MEDS: Neuropathy Pain Cream Compound 60 CLICK TUBE TOPICAL ×2 (09:06→21:11)
[2020-10-28 19:33] VITALS: BP 110/68; PULSE 84; RESP 16; TEMP 36.7; O2SAT 99
[2020-10-28] MEDS: traZODone 100 MG Tablet PO (21:09)
[2020-10-28] MEDS: 0.9% Saline Lock 10 ML Syringe IV (21:09)
[2020-10-28] MEDS: tiZANidine HCl 2 MG Tablet 4 MG PO (21:12)
[2020-10-28 21:25] VITALS: PULSE 84; RESP 16; O2SAT 98
[2020-10-29] MEDS: Pregabalin 25 MG Capsule PO ×2 (06:22→13:34)
[2020-10-29] MEDS: Pregabalin 75 MG Capsule PO ×2 (06:22→13:34)
[2020-10-29] MEDS: Cefazolin 2 GM in 0.9% Normal Saline 100 ML IV ×2 (06:22→13:48)
[2020-10-29] MEDS: Acetaminophen 500 MG Tablet 1000 MG PO ×2 (06:22→13:32)
[2020-10-29] MEDS: 0.9% Saline Lock 10 ML Syringe IV (06:23)
[2020-10-29 07:10] LABS: ALB/GLOB Ratio 0.6 RATIO (0.9-2.4); AST(SGOT) 23 U/L (15-37); Alanine Aminotransfer ALT/SGPT 14 U/L (13-56); Albumin, Serum 2.9 g/dL (3.2-5.0); Alkaline Phosphatase 138 U/L (45-117); Anion Gap 4 (5-15); BUN 15 mg/dL (7-18); BUN/Creat Ratio 25.3 RATIO (10-20); Calcium,Total 9.3 mg/dL (8.5-10.1); Chloride 104 mmol/L (98-107); Creatinine, Serum 0.59 mg/dL (0.55-1.02); EST Glomerular Filtration Rate 110 mL/min (>60); Est Glom Filt Rate - Afr Amer 133 mL/min (>60); Estimated Creatinine Clearance 70.43 ml/min; Globulin 4.5 g/dL (2.2-4.2); Glucose 101 mg/dL (74-106); Potassium 4.4 mmol/L (3.5-5.1); Protein, Total 7.4 g/dL (6.4-8.2); Sodium Level 133 mmol/L (136-145)
[2020-10-29 07:30] VITALS: BP 97/65; PULSE 96; RESP 18; TEMP 36.5; O2SAT 98
[2020-10-29 07:38] LABS: Erythrocyte Sedimentation Rate 64 mm/hr (0-30)
[2020-10-29 07:42] LABS: Absolute Lymphocyte Count 1.69 X10^3/uL (0.83-4.51); Absolute Neutrophil Count 4.4 X10^3/uL (2.0-7.7); Basophil# 0.06 X10^3/uL; Basophil% 0.8 % (0-1); Eosinophil# 0.18 X10^3/uL; Eosinophils% 2.5 % (0-5); Hematocrit 29.2 % (37-47); Hemoglobin 9.4 g/dL (12.0-15.0); Lymphocyte # 1.69 X10^3/ul (0.83-4.51); Lymphocyte % 23.3 % (19-41); Mean Corp Hgb Conc 32.2 g/dL (32-36); Mean Corpuscular Hgb 29.8 pg (27.0-32.0); Mean Corpuscular Volume 92.7 fL (81-99); Mean Platelet Vol. 8.8 fl (6.2-12.0); Monocyte# 0.86 X10^3/uL; Monocyte% 11.9 % (0-10); NRBC Flagged by Analyzer 0 % (0-5); Neutrophil # 4.41 X10^3/uL (2.7-7.7); Neutrophil % 60.8 % (47-70); Platelet Count 495 K/mm3 (150-450); RBC Distribution Width CV 14.9 % (11.6-14.6); RBC Distribution Width SD 49.6 fl (35.1-43.9); Red Blood Count 3.15 M/mm3 (4.2-5.4); White Blood Count 7.3 K/mm3 (4.4-11.0)
[2020-10-29] MEDS: oxyCODONE HCl Cr 10 MG Tablet PO (08:46)
[2020-10-29] MEDS: Cyanocobalamin 500 MCG Tablet 1000 MCG PO (08:46)
[2020-10-29] MEDS: Cholecalciferol (VIT D3) 25 MCG TABLET (1,000 UNITS) PO (08:47)
[2020-10-29] MEDS: Vitamin E 400 UNITS Capsule PO (08:47)
[2020-10-29] MEDS: Ascorbic Acid 500 MG Tablet PO (08:47)
[2020-10-29] MEDS: Senna/Docusate Sodium 1 Tablet PO (08:49)
[2020-10-29] MEDS: Neuropathy Pain Cream Compound 60 CLICK TUBE TOPICAL (08:51)
--- NOTE | 2020-10-29 10:25 | DCINST_ITS ---
Discharge Instructions Diet Discharge Diet: No restrictions and - (Make sure to have good protein intake so you can heal the wound.) Activity Discharge Activity: May Not Drive and May Shower Ice area for (Minutes): 15 Weight Bearing Status: Full weight bearing Lifting Restrictions: No more than 5-10 lbs Additional Activity Instructions:: Do the exercises that the therapists gave you at least once a day. Dressing / Incision Call your doctor if your incision/area has: Continuous Slow Oozing, Sudden Increased Bleeding, Increased Pain/ Swelling, Increased Redness, Foul Smelling Discharge and Swelling at the incision site Call your doctor if you observe: Fever of 101 or Higher, Shortness of breath, S welling in the ankles, Chest pain, Increased palpitations (irregular heartbeat), Calf discomfort and Uncontrolled pain Suture Line Care: Avoid Pulling/Pushing and Avoid Pinching/Bending Cleanse incision/area with: Soap & Water Additional Dressing/Incision Instructions:: You may leave the incision uncovered and open to air Follow Up Care Please Follow Up With: Victoriano Marshall MD Test Results: Test results from this visit will be discussed in further detail at your follow-up appointment, if applicable. Pending Tests Upon Discharge: none Discharge Plan Admission Admit Date/Time: 10/14/20 14:03 Primary Reason for Your Visit: Debility due to recent laminectomy with infection Attending Provider: Corry Greenfield Primary Care Provider: Care Physician,Trista Primary Instructions Patient Instructions: Pleural Effusion, Thoracentesis Dc Additional Instructions / Restrictions: 1. It is VERY important to follow ALL the instructions given to you by the surgeon and the therapists. Do not overdo because it will delay healing and cause you increased pain. Do what is best for you, not what you want to do. You had a very bad infection and fortunately you survived sepsis. You also likely had pneumonia in the base of the R lung and political science research assistant to a collection of fluid around the lung called a pleural effusion. This was likely infected but, the culture did not grow anything because you were on antibiotics at the time the fluid was removed. This fluid has not recurred since it was removed. 2. I am referring you to a pain management doctor. His name is Dr. Cardoso and his office is in the medical specialty building at the hospital here. I am sendi ng you home on the Oxycontin 10 mg once a day in the AM. Dr. Cardoso will manage your pain medications.......you may have chronic pain going forward and it is best managed by a rug touch up painter. 3. Remember to keep your back precautions. No bending, lifting or twisting. The better you stick to the instructions given to you to promote healing the less likely that you will have chronic pain. 4. I am giving you a prescription for the pain cream we used in the hospital. It is made up by our pharmacist in the retail pharmacy. He is a compounding pharmacist and there are not many around so you will have to get refills from the retail pharmacy at [facility]. 5. If you feel the urge to disregard the instructions/precautions given to you please talk your self out of it. You WILL continue to have complications is you do things you have been told not to do. As an example......you went home and took a bath prior to presenting to the rehab floor........bath tubs are loaded with bacteria and are a frequent cause of infection with wounds. You could have made things much worse. Take care of yourself. 6. If you have any questions after you get home my office number is [phone] and the number to the rehab floor is [phone]. Good luck to you Ashleigh. Discharge Orders/Prescriptions Prescriptions: New trazodone 100 mg Tablet 100 mg PO 2100 Qty: 30 RF: 0 oxycodone [OxyContin] 10 mg Tablet,Oral Only,Ext.Rel.12 Hr 10 mg PO DAILY 14 Days Qty: 14 RF: 0 tramadol 50 mg Tablet 50 mg PO Q6H PRN PRN (Reason: Pain Score 4-10) Qty: 28 RF: 0 pregabalin 75 mg Capsule 75 mg PO Q8 Qty: 90 RF: 0 Continued cyanocobalamin (vitamin B-12) 1,000 mcg Tablet 1,000 mcg PO DAILY RF: 0 acetaminophen 500 mg Tablet 1,000 mg PO Q8H RF: 0 ascorbic acid (vitamin C) 500 mg Tablet 500 mg PO DAILY RF: 0 cefazolin 1 gram Piggyback 2 g IV Q8 RF: 0 vitamin E 400 unit Capsule 400 unit PO DAILY RF: 0 cholecalciferol (vitamin D3) 25 mcg (1,000 unit) Tablet 25 mcg PO DAILY Qty: 30 RF: 0 Changed tizanidine 2 mg Tablet See Rx Instructions .ROUTE .COMPLEX PRN (Reason: Muscle Spasm) 14 Days Qty: 56 RF: 0 Discontinued orphenadrine citrate 100 mg Tablet Extended Release 100 mg PO BID RF: 0 trazodone [Desyrel] 50 mg Tablet 50 mg PO QHS PRN (Reason: Sleep) RF: 0 tizanidine [Zanaflex] 4 mg Tablet 4 mg PO QHS RF: 0 oxycodone [OxyIR] 5 mg Capsule 5 mg PO Q4H PRN (Reason: Breakthrough Pain) RF: 0 No Action pregabalin 100 mg Capsule 100 mg PO Q8 RF: 0 Referrals / Follow Up: Boubacar Cardoso MD [STAFF PHYSICIAN] - Victoriano Marshall MD [STAFF PHYSICIAN] - Care Physician,No Primary [Primary Care Provider] - Disposition Disposition (needs filled in before D/C Order can be placed): Home Health Service
[2020-10-29 15:00] VITALS: BP 104/60; PULSE 90; RESP 16; TEMP 36.7; O2SAT 98
--- NOTE | 2020-10-29 15:00 | NURSING ---
Patient discharged to home with family present. IV education provided and verbalized understanding. [facility] will call family to review IV instruct.
--- NOTE | 2020-10-29 17:32 | PCM.DC.SUM ---
Providers Date of Admission: 10/14/20 Date of Discharge: 10/29/20 Primary Care Physician: New PCP is Dr. Marshall Reason For Visit: LAMINECTOMY Diagnosis Discharge Diagnosis (1) Complication, postoperative infection: Status: Acute Code(s): T81.40XA - Infection following a procedure, unspecified, initial encounter (2) Thrombocytosis: Status: Acute Code(s): D47.3 - Essential (hemorrhagic) thrombocythemia (3) Debility: Status: Acute Code(s): R53.81 - Other malaise (4) Abscess or cellulitis of back: Status: Acute (5) H/O spinal fusion: Status: Chronic Code(s): Z98.1 - Arthrodesis status (6) Acute blood loss anemia (ABLA): Status: Acute Code(s): D62 - Acute posthemorrhagic anemia (7) Chronic pain following surgery or procedure: Status: Chronic Code(s): G89.28 - Other chronic postprocedural pain (8) Abdominal distension (gaseous): Status: Resolved Code(s): R14.0 - Abdominal distension (gaseous) (9) Pleural cavity effusion: Status: Resolved Code(s): J90 - Pleural effusion, not elsewhere classified (10) Hypoxemia: Status: Resolved Code(s): R09.02 - Hypoxemia (11) Insomnia: Status: Resolved Code(s): G47.00 - Insomnia, unspecified Qualifiers: Insomnia type: unspecified Qualified Code(s): G47.00 - Insomnia, unspecified (12) Hyponatremia: Status: Acute Code(s): E87.1 - Hypo-osmolality and hyponatremia (13) Non-compliant behavior: Status: Acute Code(s): R46.89 - Other symptoms and signs involving appearance and behavior Plan: DC home with [facility] and continued IV antibiotics until !. Medications at Discharge Home Medications acetaminophen 1,000 mg PO Q8H 10/14/20 ascorbic acid (vitamin C) 500 mg PO DAILY 10/14/20 cefazolin 2 g IV Q8 10/14/20 cyanocobalamin (vitamin B-12) 1,000 mcg PO DAILY 10/14/20 pregabalin 100 mg PO Q8 10/14/20 vitamin E 400 unit PO DAILY 10/14/20 cholecalciferol (vitamin D3) 25 mcg PO DAILY #30 tab 10/29/20 oxycodone [OxyContin] 10 mg PO DAILY 14 Days #14 tab 10/29/20 pregabalin 75 mg PO Q8 #90 cap 10/29/20 tizanidine See Rx Instructions .ROUTE .COMPLEX PRN 14 Days #56 tab 10/29/20 tramadol 50 mg PO Q6H PRN PRN #28 tab 10/29/20 trazodone 100 mg PO 2100 #30 tab 10/29/20 Hospital Course Operations None (she had her surgery at [facility] prior to being transferred to acute rehab at [facility]) and - Procedures Thoracentesis (She had a thoracentesis on 10/18/2020y Dr. Dooley. 800 cc of an exudative L pleural effusion was removed.) Summary of Care Provided Minutes Spent on Discharge: 50 Hospital Course: IGLESIA STONER, is a 59 YO F with a PMH of anxiety, depression and scoliosis who recently had a laminectomy and fusion of the thoracic spine (T2-T9) by Dr. London in July of 2020 who presented to the emergency department at [facility] on 10/03/2020 complaining of a painful draining red swollen area on her back. She also reported shaking chills. She was started on Zosyn and Vancomycin in the ED. An I&D of a back abscess was done in the ED by Dr. Turner and a thick green DC was revealed. Dr. Turner noted the depth of the cavity was to the lucio and Dr. London was contacted and requested the patient be transferred to [facility]. She had surgery at [facility]. Cultures were + for a pansensitive MSSA. Post-operatively she was transferred to the acute inpt rehab unit at [facility] for 3 hours of therapy daily to restore function at or near her prior level of function. She stopped at home on the way to the rehab unit and took a bath. When she arrived in [place] she was argumentative and she was non-compliant with wearing the brace when out of bed. She complained of severe pain and insomnia. The insomnia resolved with Trazodone. Multiple pain modalities were employed to get the pain under control and these included ice, a K pad, a compound Arthritis cream containing baclofen, lidocaine and Voltaren, narcotics and muscle relaxers. She could not tolerate Oxy IR due to nausea and abd distension/constipation. The pain ultimately became well controlled with Oxycontin 10 mg Q 12H and PRN Tramadol 50 mg. Ashleigh always wanted to do more therapy than was recommended by the PT/OT and she pushed herself which contributed to the pain. She did not allow herself time for rest. At admission Ashleigh had very diminished BS's on the left side of the chest and she had MEDRANO with oxygen desaturation and required supplemental oxygen. A D-Dimer was increased and a CTA of the chest was done because she had not been on any pharmacologic DVT prophylaxis when she came to us. The CT chest was negative for PE but, it revealed a large Left side pleural effusion. She was diuresed with no improvement. On 10/18/2020 she had a left side thoracentesis done by Dr. Dooley with ultrasound guidance and he removed 800 cc of an brittany-colored pleural effusion. Lab was consistent with an exudate. Culture of the pleural fluid had no growth. Cytology was negative for malignant cells.Follow-up chest x-ray showed no accumulation of pleural fluid and the hypoxia resolved. I suspect she had a LLL PNA and the effusion was parapneumonic. She progressed in therapy and prior to DC she Was able to complete 24 steps with 2 handrails at standby assist/supervision.She ambulated 652 feet with a wheeled walker at standby assist.She was able to do 13 sit to stands in 30 seconds.She completed the TUG test in10.44 seconds.She was independent with all ADLs prior to discharge from rehab. Even near the end of her stay in rehab she was refusing to don the back brace for toileting and sitting in a chair despite multiple people giving her education on the role the brace played in spinal stability and recovery. She was independent in her room despite being told she needed to call for a nurse to assist her to prevent falls. She is emotionally labile and very angry. She blames the surgeon for mistakes that lead her to have an abscess and require an additional surgery. She requested I transition her to oral antibiotics so that she could go home. I told her that the antibiotics were ordered by the ID doctor and if the recommendations were for the IV antibiotic to continue to 11/16 that I would not change the order. She does not accept any responsibility for complications even though she has been non-compliant. Ashleigh saw Dr. London on 10/26/20 and the tyra were removed. He was happy with her progress. Fortunately the SW was able to arrange for home antibiotic administration and Ashleigh has a family member willing to take charge of administering the medication. She was discharged home on 10/29/20. HHC was arranged by the SW. She will follow up with Dr. London as instructed. Prior to DC we had tapered the Oxycontin down to 1 10 mg tab a day and her pain remained adequately controlled with rare doses of Tramadol requested. Ocycontin was discontinued on the day of DC. She was given a RX for Tramadol for pain control. An appt was made for her to follow up with pain management (Dr. Cardoso) on 11/12/20. She did not have a PCP and she requested an appt be made with Dr. Marshall and this was done. She will call me if she has any questions post DC and she was given my direct office number. Physical Exam Const alert, oriented x3 and no apparent distress Constitutional Narrative: She is sitting on the bed and she appears in no distress. General Appearance: cooperative, comfortable, well kempt and well developed HEENT moist oral mucous membranes Eyes PERRL and EOMs intact bilaterally Eyes Narrative: No scleral icterus,Conjunctiva is normal. Neck no lymphadenopathy, supple, no JVD and no carotid bruits Chest Chest: symmetrical chest wall rise Resp normal respiratory effort, no use of accessory muscles and clear to auscultation bilaterally Resp Narrative: There a a few coarse crackles in the L base which have not changed and my be due to scarring related to PNA/effusion. The R lung is clear. She has no conversational dyspnea. She has not requires oxygen supplementation since the thoracentesis. Effort and Inspection: able to speak in complete sentences Cardio regular rate, regular rhythm, S1 normal heart sound, S2 normal heart sound, no murmurs, no rub and no gallops Cardio Narrative: no ectopy GI normal to inspection, nondistended, normoactive bowel sounds and soft to palpation GI Narrative: The abdomen is soft, ND, NT and she has normal BS's. She is having formed BM's with no liquid stool. Back/Spine Back/Spine Narrative: She is no longer c/o the pain in the area of the trapezius ridge General Back: Negative for CVA tenderness Extremity no clubbing, cyanosis or edema Extremity Narrative: Trace ankle edema. No calf pain Skin Skin Narrative: The incision is intact and there is no discharge and no erythema around the incision. The tyra were removed last Thursday. General Skin Exam: no breakdown Rashes: no rashes Neuro oriented x3, CN's II-XII intact bilaterally, moves all extremities and no focal motor deficits Motor Exam: strength 5/5 throughout Psych Psych Narrative: Appropriate, making good eye contact. Able to stay on topic and focus. No flight of ideas. Does not appear anxious or depressed. She is angry and lets everyone know it. She continues to blame Dr. London for the infection, second surgery, need for antibiotics and rehab. Weight / BMI Weight Weight: 99 lb 9.6 oz Body Mass Index (BMI) 20.9 ABG / Lab / Microbiology Data Result Diagrams: 10/29/20 06:30 10/29/20 06:30 Laboratory: Laboratory Results - last 24 hr 10/29/20 06:30: WBC 7.3, RBC 3.15 L, Hgb 9.4 L, Hct 29.2 L, MCV 92.7, MCH 29.8, MCHC 32.2, RDW Std Deviation 49.6 H, RDW Coeff of Shelly 14.9 H, Plt Count 495 H, MPV 8.8, Immature Gran % (Auto) 0.700, Neut % (Auto) 60.8, Lymph % (Auto) 23.3, [place] % (Auto) 11.9 H, Eos % (Auto) 2.5, Baso % (Auto) 0.8, Absolute Neuts (auto) 4.4, Absolute Lymphs (auto) 1.69, Nucleated RBC % 0, ESR 64 H 10/29/20 06:30: Sodium 133 L, Potassium 4.4, Chloride 104, Carbon Dioxide 25.0, Anion Gap 4 L, BUN 15, Creatinine 0.59, Estim Creat Clear Calc 70.43, Est GFR (MDRD) Af Amer 133, Est GFR (MDRD) Non-Af 110, BUN/Creatinine Ratio 25.3 H, Glucose 101, Calcium 9.3, Total Bilirubin 0.10 L, AST 23, ALT 14, Alkaline Phosphatase 138 H, C-React Prot Ext Range 10.30 H, Total Protein 7.4, Albumin 2.9 L, Globulin 4.5 H, Albumin/Globulin Ratio 0.6 L Microbiology: Microbiology 10/18/20 Unknown Fluid - Thoracentesis Fluid Gram Stain - Final 10/18/20 Unknown Fluid - Thoracentesis Fluid Body Fluid Culture - Final Culture exhibits no growth. 10/18/20 Unknown Fluid - Thoracentesis Fluid Anaerobic Culture - Final No growth in 5 days. D/C Instructions Discharge Diet: No restrictions and - (Make sure to have good protein intake so you can heal the wound.) Ice area for (Minutes): 15 Weight Bearing Status: Full weight bearing Additional Activity Instructions: Do the exercises that the therapists gave you at least once a day. Call your doctor if your incision/area has: Continuous Slow Oozing, Sudden Increased Bleeding, Increased Pain/ Swelling, Increased Redness, Foul Smelling Discharge and Swelling at the incision site Call your doctor if you observe: Fever of 101 or Higher, Shortness of breath, Swelling in the ankles, Chest pain, Increased palpitations (irregular heartbeat), Calf discomfort and Uncontrolled pain Suture Line Care: Avoid Pulling/Pushing and Avoid Pinching/Bending Cleanse incision/area with: Soap & Water Additional Dressing/Incision Instructions: You may leave the incision uncovered and open to air Pending Tests Upon Discharge: none Please Follow Up With: Victoriano Marshall MD Meaningful Use Info Meaningful Use Diagnoses (Choose all that apply): None applicable Discharge Plan Admission Admit Date/Time: 10/14/20 14:03 Primary Reason for Your Visit: Debility due to recent laminectomy with infection Attending Provider: Corry Greenfield Primary Care Provider: Care Physician,Trista Primary Instructions Patient Instructions: Pleural Effusion, Thoracentesis Dc Additional Instructions / Restrictions: 1. It is VERY important to follow ALL the instructions given to you by the surgeon and the therapists. Do not overdo because it will delay healing and cause you increased pain. Do what is best for you, not what you want to do. You had a very bad infection and fortunately you survived sepsis. You also likely had pneumonia in the base of the R lung and corset fitter to a collection of fluid around the lung called a pleural effusion. This was likely infected but, the culture did not grow anything because you were on antibiotics at the time the fluid was removed. This fluid has not recurred since it was removed. 2. I am referring you to a pain management doctor. His name is Dr. Cardoso and his office is in the medical specialty building at the hospital here. I am sending you home on the Oxycontin 10 mg once a day in the AM. Dr. Cardoso will manage your pain medications.......you may have chronic pain going forward and it is best managed by a apprentice painter hand. 3. Remember to keep your back precautions. No bending, lifting or twisting. The better you stick to the instructions given to you to promote healing the less likely that you will have chronic pain. 4. I am giving you a prescription for the pain cream we used in the hospital. It is made up by our pharmacist in the retail pharmacy. He is a compounding pharmacist and there are not many around so you will have to get refills from the retail pharmacy at [facility]. 5. If you feel the urge to disregard the instructions/precautions given to you please talk your self out of it. You WILL continue to have complications is you do things you have been told not to do. As an example......you went home and took a bath prior to presenting to the rehab floor........bath tubs are loaded with bacteria and are a frequent cause of infection with wounds. You could have made things much worse. Take care of yourself. 6. If you have any questions after you get home my office number is [phone] and the number to the rehab floor is [phone]. Good luck to you Ashleigh. Discharge Orders/Prescriptions Prescriptions: New trazodone 100 mg Tablet 100 mg PO 2100 Qty: 30 RF: 0 oxycodone [OxyContin] 10 mg Tablet,Oral Only,Ext.Rel.12 Hr 10 mg PO DAILY 14 Days Qty: 14 RF: 0 tramadol 50 mg Tablet 50 mg PO Q6H PRN PRN (Reason: Pain Score 4-10) Qty: 28 RF: 0 pregabalin 75 mg Capsule 75 mg PO Q8 Qty: 90 RF: 0 Continued cyanocobalamin (vitamin B-12) 1,000 mcg Tablet 1,000 mcg PO DAILY RF: 0 acetaminophen 500 mg Tablet 1,000 mg PO Q8H RF: 0 ascorbic acid (vitamin C) 500 mg Tablet 500 mg PO DAILY RF: 0 cefazolin 1 gram Piggyback 2 g IV Q8 RF: 0 vitamin E 400 unit Capsule 400 unit PO DAILY RF: 0 cholecalciferol (vitamin D3) 25 mcg (1,000 unit) Tablet 25 mcg PO DAILY Qty: 30 RF: 0 Changed tizanidine 2 mg Tablet See Rx Instructions .ROUTE .COMPLEX PRN (Reason: Muscle Spasm) 14 Days Qty: 56 RF: 0 Discontinued orphenadrine citrate 100 mg Tablet Extended Release 100 mg PO BID RF: 0 trazodone [Desyrel] 50 mg Tablet 50 mg PO QHS PRN (Reason: Sleep) RF: 0 tizanidine [Zanaflex] 4 mg Tablet 4 mg PO QHS RF: 0 oxycodone [OxyIR] 5 mg Capsule 5 mg PO Q4H PRN (Reason: Breakthrough Pain) RF: 0 No Action pregabalin 100 mg Capsule 100 mg PO Q8 RF: 0 Referrals / Follow Up: Boubacar Cardoso MD [STAFF PHYSICIAN] - Victoriano Marshall MD [STAFF PHYSICIAN] - Care Physician,No Primary [Primary Care Provider] - Disposition Disposition (needs filled in before D/C Order can be placed): Home Health Service Charges/Coding Visit Charges Inpatient E&M: 52732 Disch Hosp
--- NOTE | 2020-10-31 16:23 | CASEMGMT ---
Social Work Contacted all [facility] companies on list and they either do not accept pt's insurance or do not have staffing. Called [facility] to inquire about pt having PICC dressing changed and labs drawn weekly at center - accepted. Completed paperwork. Spoke with pt to explain above - pt agreeable and appreciative. Jocelyn Tavera, FIELD GEOLOGIST CONSTRUCTION SITE MANAGER
== END 2020-10-29 15:00 | disposition home health service (06) | DRG 862 ==
PROVIDERS: Admitting Provider Internal Medicine; PCP Internal Medicine; Visit Provider Internal Medicine
DX: T81.40XD Infection following a procedure, unspecified, subsequent encounter (principal); A49.01 Methicillin susceptible Staphylococcus aureus infection, unspecified site; L03.312 Cellulitis of back [any part except buttock and flank]; R09.02 Hypoxemia; D62 Acute posthemorrhagic anemia; E87.1 Hypo-osmolality and hyponatremia; L02.212 Cutaneous abscess of back [any part, except buttock and flank]; D47.3 Essential (hemorrhagic) thrombocythemia; M41.9 Scoliosis, unspecified; Z79.899 Other long term (current) drug therapy; Z91.19 Patient's noncompliance with other medical treatment and regimen; Z98.1 Arthrodesis status; Z87.891 Personal history of nicotine dependence
CPT/HCPCS: 32555; 71046; 71275; 74018; 80048; 80053; 82150; 82945; 83615; 83690; 83735; 84100; 84132; 84156; 84157; 85014; 85018; 85025; 85379; 85610; 85652; 85730; 86140; 87070; 87075; 87205; 88108; 88305; 88313; 89050; 97110; 97116; 97162; 97165; 97530; 97535; 97802; 97803; 99251; J7050; P9047; Q9967; A4216; G0463; J1940

== ENCOUNTER → 2020-11-05 12:51 | Outpatient (CLI) | payer MEDICAID, SELFPAY ==
[2020-11-05 14:00] LABS: Absolute Lymphocyte Count 1.93 X10^3/uL (0.83-4.51); Basophil# 0.05 X10^3/uL; Basophil% 0.8 % (0-1); Eosinophil# 0.14 X10^3/uL; Eosinophils% 2.4 % (0-5); Hematocrit 29.7 % (37-47); Hemoglobin 9.5 g/dL (12.0-15.0); Lymphocyte # 1.93 X10^3/ul (0.83-4.51); Lymphocyte % 32.5 % (19-41); Mean Corpuscular Hgb 29.5 pg (27.0-32.0); Mean Corpuscular Volume 92.2 fL (81-99); Mean Platelet Vol. 8.6 fl (6.2-12.0); Monocyte# 0.81 X10^3/uL; Monocyte% 13.7 % (0-10); NRBC Flagged by Analyzer 0 % (0-5); Neutrophil # 2.99 X10^3/uL (2.7-7.7); Neutrophil % 50.4 % (47-70); Platelet Count 497 K/mm3 (150-450); RBC Distribution Width CV 14.6 % (11.6-14.6); RBC Distribution Width SD 50.2 fl (35.1-43.9); Red Blood Count 3.22 M/mm3 (4.2-5.4); White Blood Count 5.9 K/mm3 (4.4-11.0)
[2020-11-05 14:04] LABS: Erythrocyte Sedimentation Rate 53 mm/hr (0-30)
[2020-11-05 14:20] LABS: ALB/GLOB Ratio 0.7 RATIO (0.9-2.4); AST(SGOT) 20 U/L (15-37); Alanine Aminotransfer ALT/SGPT 10 U/L (13-56); Albumin, Serum 3.1 g/dL (3.2-5.0); Alkaline Phosphatase 133 U/L (45-117); Anion Gap 6 (5-15); BUN 10 mg/dL (7-18); BUN/Creat Ratio 18.4 RATIO (10-20); CRP 7.55 mg/L (0.0-3.0); Calcium,Total 8.9 mg/dL (8.5-10.1); Chloride 103 mmol/L (98-107); Creatinine, Serum 0.54 mg/dL (0.55-1.02); EST Glomerular Filtration Rate 121 mL/min (>60); Est Glom Filt Rate - Afr Amer 146 mL/min (>60); Globulin 4.5 g/dL (2.2-4.2); Glucose 105 mg/dL (74-106); Protein, Total 7.6 g/dL (6.4-8.2); Sodium Level 134 mmol/L (136-145)
== END ==
PROVIDERS: PCP Internal Medicine; Referring Provider Internal Medicine; Visit Provider Internal Medicine
DX: Z45.2 Encounter for adjustment and management of vascular access device (principal); T81.40XA Infection following a procedure, unspecified, initial encounter; A41.9 Sepsis, unspecified organism; Z98.1 Arthrodesis status
CPT/HCPCS: 36592; 80053; 85025; 85652; 86140; A4216

== ENCOUNTER → 2020-11-06 15:30 | Outpatient (CLI) | payer MEDICAID, SELFPAY ==
--- NOTE | 2020-11-06 16:32 | RAD_ITS ---
STUDY: X-RAY - LEFT HUMERUS REASON FOR EXAM: Female, 60 years old. PICC line malfunction. TECHNIQUE: 2 view(s) of the humerus. COMPARISON: Chest, 10/21/2020. FINDINGS: Normal visualized humerus. There is no demonstrated fracture or osseous destructive process. The shoulder and elbow are grossly normal. There is a left PICC line which appears normal in appearance. There is no evidence of disruption or kinking or other abnormality within the visualized portions of the catheter. RAD/Humerus min 2 Views IMPRESSION: 1. Normal x-ray examination of the humerus. 2. Normal-appearing PICC line. Electronically Signed: Billy Maurer DO at 17:20 EDT Tel [phone], Service support ,
== END ==
PROVIDERS: PCP Internal Medicine; Referring Provider Internal Medicine; Visit Provider Internal Medicine
DX: T82.898A Other specified complication of vascular prosthetic devices, implants and grafts, initial encounter (principal); Y84.8 Other medical procedures as the cause of abnormal reaction of the patient, or of later complication, without mention of misadventure at the time of the procedure; Y92.9 Unspecified place or not applicable; R00.0 Tachycardia, unspecified
CPT/HCPCS: 36415; 73060; 84439; 84443

== ENCOUNTER → 2020-11-07 | Outpatient (CLI) | payer MEDICAID, SELFPAY | END | disposition home or self-care (01) | LOC: MEDOUTP 10:28 | PROVIDERS: PCP Internal Medicine; Referring Provider Internal Medicine; Visit Provider Internal Medicine | DX: Z45.2 Encounter for adjustment and management of vascular access device (principal); T81.40XA Infection following a procedure, unspecified, initial encounter; A41.9 Sepsis, unspecified organism; Z98.1 Arthrodesis status | CPT/HCPCS: 99211; A4216; G0463 ==

== ENCOUNTER → 2020-11-08 16:44 | Outpatient (CLI) | payer MEDICAID, SELFPAY ==
--- NOTE | 2020-11-08 16:48 | CT_ITS ---
EXAM: CT THORACIC SPINE WITH INTRAVENOUS CONTRAST CLINICAL INDICATION: THORACIC ABSCESS TECHNIQUE: Helically acquired images were obtained of the thoracic spine with intravenous contrast. 2D reformats were reviewed. This CT exam was performed using one or more of the following dose reduction techniques: automated exposure control, adjustment of the mA and/or kV according to patient size, and/or use of iterative reconstruction technique. This report was created using [employer] report generation technology. CONTRAST: IV 100mL Isovue-370 COMPARISON: CT chest 10/16/2020 FINDINGS: VERTEBRAE: Dorsal spine demonstrates degenerative change. DISCS/SPINAL CANAL/NEURAL FORAMINA: There is diffuse sclerosis at T4-5 within the disc space. This is concerning for discitis and osteomyelitis. There is multilevel posterior fusion of the thoracic spine. Pedicle screws and transverse fixation lucio in place. VASCULATURE: Visualized thoracic aorta is not dilated. LYMPH NODES: Unremarkable. No retroperitoneal adenopathy. LUNGS AND PLEURAL SPACES: Unremarkable as visualized. No mass. No consolidation or edema. No pleural effusion or thickening. No pneumothorax. CT/Spine Thoracic WITH Contrast IMPRESSION: There is diffuse sclerosis at T4-5 within the disc space. This is concerning for discitis and osteomyelitis. Electronically Signed: Capo Flores MD at 17:30 EDT , Service support ,
== END ==
PROVIDERS: PCP Internal Medicine
DX: J86.9 Pyothorax without fistula (principal)
CPT/HCPCS: 72129; Q9967; A4216

== ENCOUNTER → 2020-11-09 12:54 | Outpatient (CLI) | payer MEDICAID, SELFPAY ==
[2020-11-09 13:21] VITALS: BP 125/81; PULSE 90; RESP 18; O2SAT 100; BMI 19.5
[2020-11-09 13:29] VITALS: TEMP 37
--- NOTE | 2020-11-09 13:53 | NURSING ---
Patient has a LUE PICC, which is occluded. Order to replace PICC. Able to flush both lumens and aspirate blood return without difficulty. Patient had CXR to confirm PICC placement this week. Educated patient push pause technique for flushed her PICC in order to create some turblence and keep PICC patient. PICC okay to use.
== END ==
PROVIDERS: PCP Internal Medicine
DX: Z45.2 Encounter for adjustment and management of vascular access device (principal); M46.40 Discitis, unspecified, site unspecified

== ENCOUNTER → 2020-11-12 15:18 | Outpatient (CLI) | payer MEDICAID, SELFPAY ==
[2020-11-12 16:26] LABS: Amphetamine Urine VISTA NEGATIVE (<1000 ng/mL); Barbiturate Urine VISTA NEGATIVE (< 200 ng/mL); Benzodiazepine Urine VISTA NEGATIVE (< 200 ng/mL); Cocaine Urine VISTA NEGATIVE (< 300 ng/mL); Ecstacy Urine VISTA POSITIVE (< 500 ng/mL); Methadone Urine VISTA NEGATIVE (< 300 ng/mL); PCP Urine VISTA NEGATIVE (< 25 ng/mL); THC Urine VISTA NEGATIVE (< 50 ng/mL); Vista UDS pH Range 6
== END ==
PROVIDERS: PCP Internal Medicine; Referring Provider Anesthesiology Pain Medicine; Visit Provider Anesthesiology Pain Medicine
DX: F11.20 Opioid dependence, uncomplicated (principal)
CPT/HCPCS: 80307

== ENCOUNTER → 2020-11-14 10:14 | Outpatient (CLI) | payer MEDICAID, SELFPAY ==
[2020-11-14] MEDS: 0.9% NaCl PICC Flush IV ×2 (11:07→11:08)
[2020-11-14 11:22] LABS: Erythrocyte Sedimentation Rate 54 mm/hr (0-30)
[2020-11-14 11:27] LABS: Absolute Lymphocyte Count 1.64 X10^3/uL (0.83-4.51); Absolute Neutrophil Count 4.1 X10^3/uL (2.0-7.7); Basophil# 0.04 X10^3/uL; Basophil% 0.6 % (0-1); Eosinophil# 0.05 X10^3/uL; Eosinophils% 0.8 % (0-5); Hematocrit 34.4 % (37-47); Lymphocyte # 1.64 X10^3/ul (0.83-4.51); Lymphocyte % 25.1 % (19-41); Mean Corpuscular Hgb 29.3 pg (27.0-32.0); Mean Corpuscular Volume 91.7 fL (81-99); Monocyte% 10.7 % (0-10); NRBC Flagged by Analyzer 0 % (0-5); Neutrophil # 4.06 X10^3/uL (2.7-7.7); Neutrophil % 62.2 % (47-70); Platelet Count 459 K/mm3 (150-450); RBC Distribution Width CV 14.6 % (11.6-14.6); RBC Distribution Width SD 49.4 fl (35.1-43.9); Red Blood Count 3.75 M/mm3 (4.2-5.4); White Blood Count 6.5 K/mm3 (4.4-11.0)
[2020-11-14 11:34] LABS: ALB/GLOB Ratio 0.7 RATIO (0.9-2.4); AST(SGOT) 22 U/L (15-37); Alanine Aminotransfer ALT/SGPT 11 U/L (13-56); Albumin, Serum 3.5 g/dL (3.2-5.0); Alkaline Phosphatase 146 U/L (45-117); Anion Gap 8 (5-15); BUN 8 mg/dL (7-18); BUN/Creat Ratio 13.4 RATIO (10-20); Calcium,Total 9.4 mg/dL (8.5-10.1); Chloride 104 mmol/L (98-107); EST Glomerular Filtration Rate 109 mL/min (>60); Est Glom Filt Rate - Afr Amer 132 mL/min (>60); Globulin 4.7 g/dL (2.2-4.2); Glucose 101 mg/dL (74-106); Potassium 4.2 mmol/L (3.5-5.1); Protein, Total 8.2 g/dL (6.4-8.2); Sodium Level 136 mmol/L (136-145)
== END ==
PROVIDERS: PCP Internal Medicine; Referring Provider Internal Medicine; Visit Provider Internal Medicine
DX: Z45.2 Encounter for adjustment and management of vascular access device (principal); T81.40XA Infection following a procedure, unspecified, initial encounter; A41.9 Sepsis, unspecified organism; Z98.1 Arthrodesis status
CPT/HCPCS: 36592; 80053; 85025; 85652; 86140; A4216

== ENCOUNTER → 2020-11-21 14:03 | Outpatient (CLI) | payer MEDICAID, SELFPAY ==
[2020-11-21] MEDS: 0.9% NaCl PICC Flush IV ×2 (14:25→14:26)
[2020-11-21 14:39] LABS: Absolute Lymphocyte Count 2.11 X10^3/uL (0.83-4.51); Absolute Neutrophil Count 4.3 X10^3/uL (2.0-7.7); Basophil# 0.03 X10^3/uL; Basophil% 0.4 % (0-1); Eosinophil# 0.07 X10^3/uL; Hematocrit 33.4 % (37-47); Hemoglobin 10.6 g/dL (12.0-15.0); Lymphocyte # 2.11 X10^3/ul (0.83-4.51); Lymphocyte % 29.7 % (19-41); Mean Corp Hgb Conc 31.7 g/dL (32-36); Mean Corpuscular Hgb 28.9 pg (27.0-32.0); Mean Platelet Vol. 8.3 fl (6.2-12.0); Monocyte# 0.59 X10^3/uL; Monocyte% 8.3 % (0-10); NRBC Flagged by Analyzer 0 % (0-5); Neutrophil # 4.27 X10^3/uL (2.7-7.7); Neutrophil % 60.2 % (47-70); Platelet Count 407 K/mm3 (150-450); RBC Distribution Width CV 14.6 % (11.6-14.6); RBC Distribution Width SD 49.2 fl (35.1-43.9); Red Blood Count 3.67 M/mm3 (4.2-5.4); White Blood Count 7.1 K/mm3 (4.4-11.0)
[2020-11-21 14:47] LABS: CRP 2.92 mg/L (0.0-3.0)
[2020-11-21 14:49] LABS: ALB/GLOB Ratio 0.8 RATIO (0.9-2.4); AST(SGOT) 17 U/L (15-37); Alanine Aminotransfer ALT/SGPT 10 U/L (13-56); Albumin, Serum 3.4 g/dL (3.2-5.0); Alkaline Phosphatase 135 U/L (45-117); Anion Gap 8 (5-15); BUN 12 mg/dL (7-18); BUN/Creat Ratio 20.1 RATIO (10-20); Calcium,Total 9.2 mg/dL (8.5-10.1); Chloride 105 mmol/L (98-107); EST Glomerular Filtration Rate 109 mL/min (>60); Est Glom Filt Rate - Afr Amer 131 mL/min (>60); Globulin 4.2 g/dL (2.2-4.2); Glucose 100 mg/dL (74-106); Protein, Total 7.6 g/dL (6.4-8.2); Sodium Level 137 mmol/L (136-145)
[2020-11-21 15:03] LABS: Erythrocyte Sedimentation Rate 37 mm/hr (0-30)
[2020-11-21 22:30] LABS: Xtra Tube EP Lab EXTRA TUBE
== END ==
PROVIDERS: PCP Internal Medicine; Referring Provider Internal Medicine; Visit Provider Internal Medicine
DX: Z45.2 Encounter for adjustment and management of vascular access device (principal); T81.40XA Infection following a procedure, unspecified, initial encounter; A41.9 Sepsis, unspecified organism; Z98.1 Arthrodesis status
CPT/HCPCS: 36592; 80053; 85025; 85652; 86140; A4216

== ENCOUNTER → 2020-11-28 13:39 | Outpatient (CLI) | payer MEDICAID, SELFPAY ==
[2020-11-28] MEDS: 0.9% NaCl PICC Flush IV ×2 (14:03→14:24)
[2020-11-28 14:31] LABS: Erythrocyte Sedimentation Rate 33 mm/hr (0-30)
[2020-11-28 14:33] LABS: Absolute Neutrophil Count 4.4 X10^3/uL (2.0-7.7); Basophil# 0.03 X10^3/uL; Basophil% 0.4 % (0-1); Eosinophil# 0.09 X10^3/uL; Eosinophils% 1.3 % (0-5); Hematocrit 32.3 % (37-47); Hemoglobin 10.4 g/dL (12.0-15.0); Lymphocyte % 26.8 % (19-41); Mean Corp Hgb Conc 32.2 g/dL (32-36); Mean Corpuscular Hgb 29.2 pg (27.0-32.0); Mean Corpuscular Volume 90.7 fL (81-99); Mean Platelet Vol. 8.4 fl (6.2-12.0); Monocyte# 0.63 X10^3/uL; Monocyte% 8.9 % (0-10); NRBC Flagged by Analyzer 0 % (0-5); Neutrophil # 4.43 X10^3/uL (2.7-7.7); Neutrophil % 62.3 % (47-70); Platelet Count 434 K/mm3 (150-450); RBC Distribution Width CV 14.7 % (11.6-14.6); RBC Distribution Width SD 49.1 fl (35.1-43.9); Red Blood Count 3.56 M/mm3 (4.2-5.4); White Blood Count 7.1 K/mm3 (4.4-11.0)
[2020-11-28 14:45] LABS: ALB/GLOB Ratio 0.8 RATIO (0.9-2.4); AST(SGOT) 27 U/L (15-37); Alanine Aminotransfer ALT/SGPT 8 U/L (13-56); Albumin, Serum 3.3 g/dL (3.2-5.0); Alkaline Phosphatase 128 U/L (45-117); Anion Gap 5 (5-15); BUN 13 mg/dL (7-18); BUN/Creat Ratio 21.1 RATIO (10-20); Calcium,Total 8.5 mg/dL (8.5-10.1); Chloride 104 mmol/L (98-107); Creatinine, Serum 0.62 mg/dL (0.55-1.02); EST Glomerular Filtration Rate 105 mL/min (>60); Est Glom Filt Rate - Afr Amer 127 mL/min (>60); Globulin 3.9 g/dL (2.2-4.2); Glucose 91 mg/dL (74-106); Protein, Total 7.2 g/dL (6.4-8.2); Sodium Level 134 mmol/L (136-145)
[2020-11-28 14:59] LABS: CRP < 2.90 mg/L (0.0-3.0)
== END ==
PROVIDERS: PCP Internal Medicine; Referring Provider Internal Medicine; Visit Provider Internal Medicine
DX: Z45.2 Encounter for adjustment and management of vascular access device (principal); T81.40XA Infection following a procedure, unspecified, initial encounter; A41.9 Sepsis, unspecified organism; Z98.1 Arthrodesis status
CPT/HCPCS: 36592; 80053; 85025; 85652; 86140; A4216

== ENCOUNTER → 2020-12-06 12:44 | Outpatient (CLI) | payer MEDICAID, SELFPAY | PROVIDERS: PCP Internal Medicine; Referring Provider Internal Medicine; Visit Provider Internal Medicine | DX: Z45.2 Encounter for adjustment and management of vascular access device (principal); J86.9 Pyothorax without fistula ==

== ENCOUNTER → 2021-01-08 12:46 | Outpatient (CLI) | payer MEDICAID, SELFPAY ==
[2021-01-08 14:03] LABS: Amphetamine Urine VISTA NEGATIVE (<1000 ng/mL); Barbiturate Urine VISTA NEGATIVE (< 200 ng/mL); Benzodiazepine Urine VISTA NEGATIVE (< 200 ng/mL); Cocaine Urine VISTA NEGATIVE (< 300 ng/mL); Ecstacy Urine VISTA POSITIVE (< 500 ng/mL); Methadone Urine VISTA NEGATIVE (< 300 ng/mL); PCP Urine VISTA NEGATIVE (< 25 ng/mL); THC Urine VISTA NEGATIVE (< 50 ng/mL); Vista UDS pH Range 5
== END ==
PROVIDERS: PCP Internal Medicine; Referring Provider Anesthesiology Pain Medicine; Visit Provider Anesthesiology Pain Medicine
DX: F11.20 Opioid dependence, uncomplicated (principal)
CPT/HCPCS: 80307

== ENCOUNTER 2021-03-05 14:32 | Outpatient (CLI) | payer MEDICAID, SELFPAY ==
[2021-03-05 16:43] LABS: Absolute Lymphocyte Count 1.83 X10^3/uL (0.83-4.51); Basophil# 0.03 X10^3/uL; Basophil% 0.4 % (0-1); Eosinophil# 0.03 X10^3/uL; Eosinophils% 0.4 % (0-5); Hematocrit 37.8 % (37-47); Hemoglobin 12.8 g/dL (12.0-15.0); Lymphocyte # 1.83 X10^3/ul (0.83-4.51); Lymphocyte % 24.5 % (19-41); Mean Corp Hgb Conc 33.9 g/dL (32-36); Mean Corpuscular Hgb 29.6 pg (27.0-32.0); Mean Corpuscular Volume 87.3 fL (81-99); Mean Platelet Vol. 9.6 fl (6.2-12.0); Monocyte# 0.56 X10^3/uL; Monocyte% 7.5 % (0-10); NRBC Flagged by Analyzer 0 % (0-5); Neutrophil # 4.99 X10^3/uL (2.7-7.7); Neutrophil % 66.8 % (47-70); Platelet Count 417 K/mm3 (150-450); RBC Distribution Width CV 14.2 % (11.6-14.6); RBC Distribution Width SD 45.9 fl (35.1-43.9); Red Blood Count 4.33 M/mm3 (4.2-5.4); White Blood Count 7.5 K/mm3 (4.4-11.0)
[2021-03-05 17:08] LABS: CRP < 2.90 mg/L (0.0-3.0)
[2021-03-05 17:08] LABS: Erythrocyte Sedimentation Rate 13 mm/hr (0-30)
== END 2021-03-05 23:59 | disposition short-term general hospital (02) ==
LOC: BIMLAB 14:47
PROVIDERS: PCP Internal Medicine; Visit Provider Internal Medicine
DX: D64.9 Anemia, unspecified (principal)
CPT/HCPCS: 36415; 85025; 85652; 86140

== ENCOUNTER 2021-04-18 16:24 | Outpatient (CLI) | payer MEDICAID, SELFPAY ==
[2021-04-18 16:50] LABS: Absolute Neutrophil Count 4.6 X10^3/uL (2.0-7.7); Basophil# 0.04 X10^3/uL; Basophil% 0.6 % (0-1); Eosinophil# 0.04 X10^3/uL; Eosinophils% 0.6 % (0-5); Hemoglobin 13.6 g/dL (12.0-15.0); Lymphocyte % 26.6 % (19-41); Mean Corp Hgb Conc 34.9 g/dL (32-36); Mean Corpuscular Hgb 31.5 pg (27.0-32.0); Mean Corpuscular Volume 90.3 fL (81-99); Mean Platelet Vol. 8.7 fl (6.2-12.0); Monocyte# 0.59 X10^3/uL; Monocyte% 8.3 % (0-10); NRBC Flagged by Analyzer 0 % (0-5); Neutrophil # 4.56 X10^3/uL (2.7-7.7); Neutrophil % 63.6 % (47-70); Platelet Count 461 K/mm3 (150-450); RBC Distribution Width CV 14.6 % (11.6-14.6); RBC Distribution Width SD 48.9 fl (35.1-43.9); Red Blood Count 4.32 M/mm3 (4.2-5.4); White Blood Count 7.2 K/mm3 (4.4-11.0)
[2021-04-18 17:38] LABS: Erythrocyte Sedimentation Rate 18 mm/hr (0-30)
[2021-04-18 18:13] LABS: ALB/GLOB Ratio 1.1 RATIO (0.9-2.4); AST(SGOT) 13 U/L (15-37); Alanine Aminotransfer ALT/SGPT 17 U/L (13-56); Albumin, Serum 4.2 g/dL (3.2-5.0); Alkaline Phosphatase 111 U/L (45-117); Amylase 53 U/L (25-115); Anion Gap 6 (5-15); BUN 16 mg/dL (7-18); BUN/Creat Ratio 22.9 RATIO (10-20); CRP < 2.90 mg/L (0.0-3.0); Calcium,Total 9.2 mg/dL (8.5-10.1); Chloride 101 mmol/L (98-107); EST Glomerular Filtration Rate 90 mL/min (>60); Est Glom Filt Rate - Afr Amer 109 mL/min (>60); Globulin 3.8 g/dL (2.2-4.2); Glucose 113 mg/dL (74-106); Lipase 84 U/L (73-393); Potassium 4.2 mmol/L (3.5-5.1); Sodium Level 134 mmol/L (136-145)
== END 2021-04-18 23:59 | disposition home or self-care (01) ==
LOC: BIMLAB 16:24
PROVIDERS: PCP Internal Medicine; Referring Provider Physician Assistant; Visit Provider Physician Assistant
DX: R63.4 Abnormal weight loss (principal); R10.9 Unspecified abdominal pain
CPT/HCPCS: 36415; 80053; 82150; 83690; 85025; 85652; 86140

== ENCOUNTER 2021-05-02 07:26 | Outpatient (CLI) | payer MEDICAID, SELFPAY ==
--- NOTE | 2021-05-02 07:29 | CT_ITS ---
STUDY: CT ABDOMEN AND PELVIS WITH CONTRAST REASON FOR EXAM: Female, 60 years old. Diffuse abdominal pain for 4 months. Weight loss. RADIATION DOSAGE (If Supplied By Facility): CTDIvol = ( 11.32 ) mGy, DLP = ( 262.58 ) mGycm TECHNIQUE: Transaxial images were obtained from the dome of the diaphragm to the symphysis pubis with oral contrast. Oral and amp;amp; IV Readi-CAT and amp;amp; 100mL Isovue-300 was administered. Sagittal and coronal images were reconstructed. Individualized dose optimization techniques were used for this CT. COMPARISON: None. FINDINGS: There is a 1 cm nodular density adjacent to the right cardiac border in the anterior aspect of the right lower lobe. This may represent a focal area of scarring. The visualized portions of the heart are within normal limits. Normal liver. There are surgical clips in the gallbladder fossa consistent with a prior cholecystectomy. Normal spleen. Normal pancreas. Normal bilateral adrenal glands. Normal right kidney. Normal left kidney. Normal visualized stomach. Normal small intestine. There are scattered colonic diverticula consistent with diverticulosis. The appendix is visualized and appears normal. Normal abdominal aorta. Normal inferior vena cava. Normal retroperitoneum. Normal urinary bladder. There is absence of the uterus consistent with a prior hysterectomy. Normal abdominal wall. The patient is status post multilevel lucio and screw fixation of the lower thoracic and lumbar spines. CT/Abdomen/Pelvis WITH Contrast IMPRESSION: 1 cm nodular density along the right cardiac border most likely representing a focal area of scarring. Scattered sigmoid diverticula. Electronically Signed: Claus Dooley MD at 12:54 EDT ,
== END 2021-05-02 23:59 | disposition home or self-care (01) ==
LOC: CT 07:27
PROVIDERS: PCP Internal Medicine; Referring Provider Internal Medicine; Visit Provider Physician Assistant
DX: R10.9 Unspecified abdominal pain (principal); R63.4 Abnormal weight loss; R68.81 Early satiety
CPT/HCPCS: 74177; Q9967

== ENCOUNTER 2021-05-13 11:53 | Outpatient (CLI) | payer MEDICAID, SELFPAY ==
--- NOTE | 2021-05-13 12:05 | RAD_ITS ---
STUDY: X-RAY - CERVICAL SPINE REASON FOR EXAM: Female, 60 years old. Multiple back surgeries. Neck pain since July. TECHNIQUE: 6 view(s) of the cervical spine were obtained. COMPARISON: None FINDINGS: Osteopenia. Incidentally noted are extensive DEE rods extending up to the T1 vertebral body. Normal anterior atlantoaxial articulation. Normal odontoid process. Diffuse uncovertebral and facet sclerosis. 3 mm of anterolisthesis of C4 on C3, C5 on C4 and C6 on C5. Intervertebral disc space narrowing Intervertebral disc space narrowing at C5-6 and C6-7 with small osteophytes. Minimal anterior bony neural foraminal encroachment at C5-6 on the left and C4-5, C5-6 and C6-7 on the right. The soft tissue structures are unremarkable. RAD/Cerv Spine 4 or 5 Views IMPRESSION: Osteopenia with diffuse cervical spondylosis as described. No acute abnormality, evidence of erosive changes or fusion. Electronically Signed: Zachariah Le MD at 9:29 EDT ,
== END 2021-05-13 23:59 | disposition home or self-care (01) ==
LOC: RAD 11:55
PROVIDERS: PCP Internal Medicine; Referring Provider Anesthesiology Pain Medicine; Visit Provider Anesthesiology Pain Medicine
DX: M50.30 Other cervical disc degeneration, unspecified cervical region (principal); M47.812 Spondylosis without myelopathy or radiculopathy, cervical region
CPT/HCPCS: 72050

== ENCOUNTER → 2021-06-06 | Outpatient (CLI) | payer MEDICAID, SELFPAY ==
[2021-06-06 11:04] LABS: Mucous, Urine 0 SEEN /hpf (<or=2+)
[2021-06-06 12:09] LABS: Color, Urine Yellow (Yellow); Glucose, Dipstick Normal (Normal); Ketone-Dipstick Negative (Negative); Leukocyte Esterase-Dipstick 500 /ul (Negative); Nitrite-Dipstick Negative (Negative); Occult Blood-Urine 10 /ul (Negative); Protein-Dipstick Negative (Negative); Urine Bilirubin Dipstick Negative (Negative); Urine Clarity Sl. Cloudy (Clear); Urine Urobilinogen Normal (Normal)
[2021-06-06 12:15] LABS: Bacteria 1+ /hpf (None Seen); Red Blood Cells-Urine 0-5 SEEN /hpf (0-5); Squamous Epithelial Cells - UA 0-5 SEEN /hpf (5-10); White Blood Cells 25-50 SEEN /hpf (0-5)
== END | disposition home or self-care (01) ==
LOC: LABSPEC 11:03
PROVIDERS: PCP Internal Medicine; Referring Provider Physician Assistant; Visit Provider Physician Assistant
DX: R35.0 Frequency of micturition (principal); R31.9 Hematuria, unspecified
CPT/HCPCS: 81001; 87086; 87088; 87186

== ENCOUNTER 2021-07-03 09:09 | Day surgery (SDC) | payer MEDICAID, SELFPAY ==
[2021-07-03] VITALS (7 sets, daily range): BP systolic 92–112; BP diastolic 49–75; PULSE 58–74; RESP 14–16; TEMP 36.3–37.3; O2SAT 94–100; BMI 17.2
--- NOTE | 2021-07-03 | GASB_PTH ---
PATIENT: IGLESIA STONER LOC: EN U#:[id number] AGE/SX: 60/F ROOM: RE07/03/[address]: Dr. Savita Ash MD : 1960 BED: DIS: 07/03/2021 SPEC #: [id number] RECD: 07/03/21 11:57 STATUS: JADEN REAzalia #: [id number] RAFFI: 07/03/21 00:[address]: Savita Ash DEPT: SURGICAL PATHOLOGY RECD BY: Joel Guy ENTERED: 07/03/21 11:58 SP TYPE: Gastric Bx OT DR: Dr. Victoriano Marshall MD Tissues: A - Gastric mucous membrane B - Gastric mucous membrane Procedures: Special Stain Group II Surgery Specimen Level IV Alcian Blue/PAS (control) HEADER OPERATION: [place]oscopy[place] with [place] [place] PRE-OP DIAGNOSIS: Epigastric pain, nonintentional weight loss, screening TISSUE SUBMITTED: A ? Antrum for H. pylori and path biopsy, B ? GE junction biopsy MICROSCOPIC DIAGNOSIS A. Gastric antrum, biopsy: Mild chronic gastritis. See comment. B. Gastroesophageal junction, biopsy: Gastroesophageal junctional mucosa with mild chronic inflammation. No evidence of goblet cell metaplasia. See comment. AM:kelsie 07/04/2021 COMMENT A. The results of immunohistochemistry for Helicobacter pylori will be reported separately ([id number]). MICROSCOPIC DESCRIPTION Slides are reviewed. GROSS DESCRIPTION A - Received in fixative is one container labeled with the patient's name and designated antrum biopsy. The specimen consists of one irregular fragment of light angelo soft tissue that measures 0.3 x 0.3 x 0.1 cm. The specimen is totally submitted in one cassette. B - Received in fixative is one container labeled with the patient's name and designated GE junction biopsy. The specimen consists of one irregular fragment of light angelo soft tissue that measures 0.3 x 0.3 x 0.1 cm. The specimen is totally submitted in one cassette. / SJ:kelsie 07/03/2021 TC:3 CPT: 15144 x2, [id number]
--- NOTE | 2021-07-03 09:17 | HP.PCM_ITS ---
History and Physical Date of Admission: 07/03/21 Date of Service: 06/05/21 MR#:[id number]: IGLESIA STONER [facility] #:[id number] Provider:Boni Jenkins/Sex: 60/F [facility] Vital Signs 06/05/21 13:25 Height 5 ft Weight: 93 lb BMI 18.1 BP 148/80 H Blood Pressure Location Rt brachial Position Sitting Respiration 17 Pulse 105 H Pulse Source Monitor Temp 97.6 F L Temp Source Temporal Pulse Oximetry (%) 99 Oxygen Delivery Method room air Intake Visit Reasons: EGD AND COLON Chief Complaint: EGD and Cscope Manager Interventional Required: No Is patient in pain?: No Allergies codeine Adverse Reaction (Verified 06/06/21 10:08) Nausea hydrocodone [From Vicodin] Adverse Reaction (Verified 06/06/21 10:08) Nausea Medications acetaminophen 1,000 mg PO Q8H 10/14/20 [History Confirmed 06/06/21] ascorbic acid (vitamin C) 500 mg PO DAILY 10/14/20 [History Confirmed 06/06/21] cyanocobalamin (vitamin B-12) 1,000 mcg PO DAILY 10/14/20 [History Confirmed 06/06/21] vitamin E 400 unit PO DAILY 10/14/20 [History Confirmed 06/06/21] cholecalciferol (vitamin D3) 25 mcg PO DAILY #30 tab 10/29/20 [Rx Confirmed 06/06/21] tizanidine See Rx Instructions .ROUTE .COMPLEX PRN 14 Days #56 tab 10/29/20 [Rx Confirmed 06/06/21] gabapentin 300 mg capsule 300 mg PO QHS cap 02/06/21 [History Confirmed 06/06/21] ibuprofen 200 mg tablet 200 mg PO Q6H PRN 02/06/21 [History Confirmed 06/06/21] oxycodone-acetaminophen 5 mg-325 mg tablet 1 tab PO Q8H PRN 02/06/21 [History Confirmed 06/06/21] mirtazapine 15 mg tablet 15 mg PO QHS #60 tab 06/06/21 [Rx Confirmed 06/06/21] omeprazole 40 mg capsule,delayed release 40 mg PO DAILY #30 cap 06/07/21 [Rx Confirmed 06/07/21] PFSH Medical History Anemia Anxiety Chronic back pain Depression Neuropathy Occluded PICC line Tachycardia Tobacco dependence in remission Surgical History H/O spinal fusion History of cholecystectomy Social History household members: family Smoking Status: Former smoker alcohol intake: current alcohol intake frequency: other substance use type: does not use HPI HPI HPI: IGLESIA STONER, is a 60 F who presents to the office today for epigastric pressure for an EGD and colonoscopy. Patient never had a previous EGD or colonoscopy denies any family history of colon cancer. Patient states she has bowel movements daily does take an all-natural vegetarian laxative denies any blood. Patient denies any reflux up her esophagus but does describe epigastric pressure/pain. Patient has a past medical history for mom back surgeries x3. Patient states she has numbness in the upper part of her abdomen to sensation from previous back surgeries. Patient states she has lost some weight was down to 89 pounds currently up to 93 but previously was about 110. ROS General General: Yes weight change and fatigue; No appetite, colon cancer or breast cancer Additional Details: Weight loss without trying. Normally 105-110lbs. Dropped to upper 80's and is currently 93lbs in office. HEENT HEENT: No difficulty swallowing, eye injury, eye surgery, swollen glands or hoarseness Endo Endocrine: No thyroid disease, diabetes mellitus, thyroid cancer, Hair loss, heat intolerance or cold intolerance Skin Skin: No rash or changing moles Musc Musculoskeletal: Yes back problems and arthritis; No rheumatoid arthritis, gout or joint pain Cardio Cardiovascular: No murmur, pacemaker, heart disease, atrial fibrillation, high blood pressure, heart attack, heart stent, palpitations, shortness of breat with exertion or chest pain Psych Psychiatric: No depression, anxiety or hearing voices Resp Respiratory: No shortness of breath, No sleep apnea, No cough, No COPD, No asthma, No emphysema and No wheezing Gastro Gastrointestinal: Yes abdominal pain, No nausea or vomiting, No diarrhea, No constipation, No blood in stool, No acid reflux, No hemorrhoids, No ulcers, No gallbladder problem and No black,tarry stools [place] Hematologic: No blood thinners, No blood disorders, No bleeding, No anemia and No blood clots Neuro Neurologic: No abnormal speech, No confusion and Yes tingling (Hx back surgeries) Exam Const General: cooperative, healthy appearing, comfortable and no acute distress Nutritional Appearance: underweight [facility] Head: normocephalic and atraumatic Neck Neck: normal visual inspection Resp Effort & Inspection: normal respiratory effort Cardio Rate: regular rate GI Inspection: non-distended and incision (Well-healed slightly left of your midline incision-access for back surgery) Palpation: soft, no guarding and tender in the epigastrum; with no rebound tenderness Skin General: no rashes or lesions noted Neuro General: patient oriented x3 Extrem General: normal to inspection Psych Affect: normal affect COVID (Procedure Consent) Procedure Criteria Procedure Criteria: Yes Elective The surgeon/proceduralist and patient have discussed in detail the risk of exposure to and/or potential harm posed by the COVID-19 virus with having a surgery/procedure at this time versus the risk of delaying the surgery/procedure. It is not possible to know either the risk of delaying the surgery or procedure or chance of getting an infection with perfect accuracy, but a joint decision was made between the patient and the surgeon/proceduralist to proceed at this time with the scheduled surgery/procedure as indicated on the consent form. Assessment and Plan Assessment and Plan (1) Epigastric pain: Status: Acute (2) Weight loss, non-intentional: Status: Acute (3) Encounter for screening for malignant neoplasm of colon: Status: Acute Plan - Dr. Savita Ash MD: We will have patient try the omeprazole 40 mg p.o. daily for the epigastric pain to see if that improves. I have discussed the above with the patient. I have offered the patient EGD and colonoscopy for evaluation. I have explained the risks/benefits of the procedure and described the procedure. I have discussed the risks with the patient, including but not limited to: infection, bleeding, perforation of the GI tract requiring emergency surgery, inability to complete the procedure, injury to any internal organs, complications of anesthesia, etc. - the patient understands and agrees to proceed. I have answered all the patient's questions to the patient's satisfaction and the patient has no further questions. The patient has been given instructions for the colon cleansing preparation. 1 day of clears, MiraLAX Dulcolax split prep. Savita Ash M.D. Pager: [phone] [facility] [address] [place] [address], [facility], [address] [place] [address] Office: [phone] Plan Details Other Medications: New: omeprazole 40 mg PO DAILY 30 caps 3RF Follow Up: We will schedule EGD and colonoscopy Coding Level of Care Code Off vis,new,level 3 Diagnoses Epigastric pain R10.13 Weight loss, non-intentional R63.4 Encounter for screening for malignant neoplasm of colon Z12.11 06/07/21 1004<Electronically signed by Savita Ash MD>Date Savita Ash MD
[2021-07-03] MEDS: Lactated Ringers 1,000 ML 15 ML IV (09:36)
--- NOTE | 2021-07-03 10:24 | OP.COLON_ITS ---
Patient Name: Mary Valiente Procedure Date: 07/03/2021 9:57 AM Date of : 1960 Age: 60 Procedure: Colonoscopy Indications: Screening for colorectal malignant neoplasm Providers: Savita Ash MD Referring MD: Victoriano Marshall MD Medicines: Monitored Anesthesia Care Patient Profile: This is a 60 year old female. Last Colonoscopy: none. The patient's first colonoscopy is today. Complications: No immediate complications. Procedure: Pre-Anesthesia Assessment: - Prior to the procedure, a History and Physical was performed, and patient medications and allergies were reviewed. The patient's tolerance of previous anesthesia was also reviewed. The risks and benefits of the procedure and the sedation options and risks were discussed with the patient. All questions were answered, and informed consent was obtained. Prior Anticoagulants: The patient has taken no previous anticoagulant or antiplatelet agents. ASA Grade Assessment: Per anesthesia. After reviewing the risks and benefits, the patient was deemed in satisfactory condition to undergo the procedure. After I obtained informed consent, the scope was passed under direct vision. Throughout the procedure, the patient's blood pressure, pulse, and oxygen saturations were monitored continuously. The colonoscope was introduced through the anus and advanced to the cecum, identified by the appendiceal orifice, ileocecal valve and palpation. The colonoscopy was performed without difficulty. The patient tolerated the procedure well. The quality of the bowel preparation was good. Scope In: 9:59:43 AM Scope Withdrawal Time 0 hours 9 minutes 12 seconds Scope Out: 10:17:02 AM Total Procedure Duration Time 0 hours 17 minutes 19 seconds Findings: Hemorrhoids were found on perianal exam. Non-bleeding external hemorrhoids were found. The hemorrhoids were small. The entire examined colon appeared normal. A few small-mouthed diverticula were found in the sigmoid colon. Impression: - Hemorrhoids found on perianal exam. - Non-bleeding external hemorrhoids. - The entire examined colon is normal. - Diverticulosis in the sigmoid colon. - No specimens collected. Recommendation: - Discharge patient to home. - Resume previous diet. - Continue present medications. - Repeat colonoscopy in 10 years for screening purposes. Procedure Code(s): --- Professional --- 10440, Colonoscopy, flexible; diagnostic, including collection of specimen(s) by brushing or washing, when performed (separate procedure) Diagnosis Code(s): --- Professional --- Z12.11, Encounter for screening for malignant neoplasm of colon K64.4, Residual hemorrhoidal skin tags K57.30, Diverticulosis of large intestine without perforation or abscess without bleeding CPT copyright 2017 [employer]. All rights reserved. The codes documented in this report are preliminary and upon business technology professor review may be revised to meet current compliance requirements. MD Savita Aldana MD 07/03/2021 10:24:03 AM This report has been signed electronically. Number of Addenda: 0 Note Initiated On: 07/03/2021 9:57 AM
--- NOTE | 2021-07-03 10:25 | OP.CCLET_ITS ---
07/03/2021 Victoriano Marshall MD [address] [place] [address] [place] [address] Re : Colonoscopy procedure for Mary Valiente Dear Dr. Marshall This procedure was performed on Saturday, July 03, 2021. My impressions and recommendations are as follows: Impressions : - Hemorrhoids found on perianal exam. - Non-bleeding external hemorrhoids. - The entire examined colon is normal. - Diverticulosis in the sigmoid colon. - No specimens collected. Recommendations : - Discharge patient to home. - Resume previous diet. - Continue present medications. - Repeat colonoscopy in 10 years for screening purposes. My findings are described in the full procedure note, which is enclosed. If I can be of further assistance, please feel free to contact me at Doctor phone number(s): , Work: . Sincerely, MD Savita Aldana MD 07/03/2021 10:24:03 AM This report has been signed electronically.
--- NOTE | 2021-07-03 10:30 | IMM_PTH ---
PATIENT: IGLESIA STONER LOC: EN U#:[id number] AGE/SX: 60/F ROOM: RE07/03/[address]: Dr. Savita Ash MD : 1960 BED: DIS: 07/03/2021 SPEC #: [id number] RECD: 07/03/21 13:05 STATUS: JADEN REQ #: [id number] RAFFI: 07/03/21 10:[address]: Savita Ash DEPT: IMMUNOHISTOCHEMISTRY RECD BY: Renae Anna ENTERED: 07/03/21 13:05 SP TYPE: IMMUNO OTHR DR: Dr. Victoriano Marshall MD Tissues: A - Stomach, NOS Procedures: H Pylori (initial) PHYSICIAN & INSTITUTION [place] [id number] SPECIMEN INFORMATION: Tissue Source: A ? Antrum biopsy Clinical Info: Epigastric pain, nonintentional weight loss, screening Specimen Number: [id number] CPT code: 57555 METHODOLOGY: Deparaffinized sections of prefer/formalin-fixed tissue or PAP/DQ stained slides are incubated with monoclonal/polyclonal antibodies/oligonucleotide probes. Localization is made via biotin free immunoperoxidase method. Appropriate controls are performed and reacted as expected. Results on target cell population are indicated in the following table: RESULTS: ANTIBODY / CLONE RESULT Block A H Pylori (polyclonal) negative These tests were developed and their performance characteristics determined by [facility]. They may not have been cleared or approved by the U.S. Food and Drug Administration. The FDA has determined that such clearance or approval is not necessary. The above immunohistochemical/dualISH markers are ordered and reviewed by the Pathologist. INTERPRETATION: A. Antrum, biopsy: Negative for Helicobacter pylori organisms. AM:kelsie 07/04/2021
--- NOTE | 2021-07-03 10:31 | OP.EGD_ITS ---
Patient Name: Mary Valiente Procedure Date: 07/03/2021 9:30 AM Date of : 1960 Age: 60 Procedure: Upper GI endoscopy Indications: Epigastric abdominal pain, Weight loss Providers: Savita Ash MD Referring MD: Victoriano Marshall MD Medicines: Monitored Anesthesia Care Patient Profile: This is a 60 year old female. Complications: No immediate complications. Procedure: Pre-Anesthesia Assessment: - Prior to the procedure, a History and Physical was performed, and patient medications and allergies were reviewed. The patient's tolerance of previous anesthesia was also reviewed. The risks and benefits of the procedure and the sedation options and risks were discussed with the patient. All questions were answered, and informed consent was obtained. Prior Anticoagulants: The patient has taken no previous anticoagulant or antiplatelet agents. ASA Grade Assessment: Per anesthesia. After reviewing the risks and benefits, the patient was deemed in satisfactory condition to undergo the procedure. After obtaining informed consent, the endoscope was passed under direct vision. Throughout the procedure, the patient's blood pressure, pulse, and oxygen saturations were monitored continuously. The colonoscope was introduced through the mouth, and advanced to the second part of duodenum. The upper GI endoscopy was accomplished without difficulty. The patient tolerated the procedure well. Scope In: 9:49:39 AM Scope Out: 9:56:51 AM Total Procedure Duration Time 0 hours 7 minutes 12 seconds Findings: The Z-line was irregular and was found 40 cm from the incisors. Biopsies were taken with a cold forceps for histology. Striped moderately erythematous mucosa without bleeding was found in the gastric antrum. Biopsies were taken with a cold forceps for histology. Biopsies were taken with a cold forceps for Helicobacter pylori cultures. The examined duodenum was normal. The cardia and gastric fundus were normal on retroflexion. Impression: - Z-line irregular, 40 cm from the incisors. Biopsied. - Erythematous mucosa in the antrum. Biopsied. - Normal examined duodenum. Recommendation: - Await pathology results. - Discharge patient to home. - Resume previous diet. - Use sucralfate tablets 1 gram PO QID for 2 weeks. - Continue present medications. Procedure Code(s): --- Professional --- 05038, Esophagogastroduodenoscopy, flexible, transoral; with biopsy, single or multiple Diagnosis Code(s): --- Professional --- K22.8, Other specified diseases of esophagus K31.89, Other diseases of stomach and duodenum R10.13, Epigastric pain R63.4, Abnormal weight loss CPT copyright 2017 [employer]. All rights reserved. The codes documented in this report are preliminary and upon bull fiddle player review may be revised to meet current compliance requirements. MD Savita Aldana MD 07/03/2021 10:31:02 AM This report has been signed electronically. Number of Addenda: 0 Note Initiated On: 07/03/2021 9:30 AM
--- NOTE | 2021-07-03 10:32 | OP.CCLET_ITS ---
07/03/2021 Victoriano Marshall MD [address] [place] [address] [place] [address] Re : Upper GI endoscopy procedure for Mary Valiente Dear Dr. Marshall This procedure was performed on Saturday, July 03, 2021. My impressions and recommendations are as follows: Impressions : - Z-line irregular, 40 cm from the incisors. Biopsied. - Erythematous mucosa in the antrum. Biopsied. - Normal examined duodenum. Recommendations : - Await pathology results. - Discharge patient to home. - Resume previous diet. - Use sucralfate tablets 1 gram PO QID for 2 weeks. - Continue present medications. My findings are described in the full procedure note, which is enclosed. If I can be of further assistance, please feel free to contact me at Doctor phone number(s): , Work: . Sincerely, MD Savita Aldana MD 07/03/2021 10:31:02 AM This report has been signed electronically.
== END 2021-07-03 11:12 | disposition home or self-care (01) ==
LOC: EN 09:09 → AC 09:11
PROVIDERS: PCP Internal Medicine; Referring Provider Internal Medicine; Visit Provider Surgery
PROC: 0DJD8ZZ Inspection of Lower Intestinal Tract, Via Natural or Artificial Opening Endoscopic (ICD-10-PCS; CPT 45378; principal; 2021-07-03 10:25)
DX: Z12.11 Encounter for screening for malignant neoplasm of colon (principal); K57.30 Diverticulosis of large intestine without perforation or abscess without bleeding; K29.50 Unspecified chronic gastritis without bleeding; K20.90 Esophagitis, unspecified without bleeding; G89.29 Other chronic pain; R63.4 Abnormal weight loss; K64.4 Residual hemorrhoidal skin tags; M54.9 Dorsalgia, unspecified; Z79.899 Other long term (current) drug therapy; Z87.891 Personal history of nicotine dependence
CPT/HCPCS: 45378; 43239; 88305; 88313; 88342; J7120; J2405

== ENCOUNTER → 2021-09-05 | Outpatient (CLI) | payer MEDICAID, SELFPAY ==
--- NOTE | 2021-09-05 12:34 | BD_ITS ---
STUDY: DUAL ENERGY X-RAY ABSORPTIOMETRY / DXA REASON FOR EXAM: Female, 60 years old. Post Menopausal TECHNIQUE: Bone Mineral Density (BMD) measurements of both forearms were obtained. COMPARISON: None. FINDINGS: Right Forearm: g/cm2 (0.422) / T-score (-2.9) / Z-score (-1.6) Left Forearm: g/cm2 (0.404) / T-score (-3.2) / Z-score (-1.9) BD/Dexa Bone Density/Append Skel IMPRESSION: The patient is considered osteoporotic as outlined below according to World Dylan Organization (WHO) criteria with a high fracture risk. Reference Information: The T-score is the number of standard deviations above or below the standard which is normal for young adults at their peak bone mineral density. The World Health Organization (WHO) interprets the T-scores as follows: Above -1 Normal bone density Between -1 and -2.5 Osteopenia Equal to / or below -2.5 Osteoporosis As a practical clinical guideline, osteopenia may be graded as follows: Mild -1 through -1.5 Moderate -1.6 through -2.0 Severe -2.1 through -2.4 The Z-score is the number of standard deviations above or below age-matched controls. A Z-score of less than -1.5 would be considered abnormal. References: 1. NIH Osteoporosis and Related Bone Diseases www osteo.org 2. International Society for Clinical Densitometry www iscd.org 3. National Osteoporosis Foundation www nof.org Electronically Signed: Claus Dooley MD at 12:28 EDT ,
--- NOTE | 2021-09-05 12:54 | BI_ITS ---
MAMMOGRAPHY - BILATERAL SCREENING REASON FOR EXAM: Female, 60 years old. Routine annual screening examination. PERTINENT HISTORY: History of father with breast cancer. TECHNIQUE: Digital bilateral breast krish (3D mammographic acquisition) in the CC and MLO projections. 2-D mediolateral oblique (MLO) and craniocaudad (CC) views of both breasts were obtained. CAD: Full Field Digital Mammography with Computer Added Detection was performed. COMPARISON: None. Baseline examination. FINDINGS: Breast Composition: The breasts are extremely dense, which lowers the sensitivity of mammography. There are no dominant masses or suspicious calcifications. No other significant abnormalities are identified. BI/SCRN MAMM (CAD)W/KRISH BILAT IMPRESSION: Negative screening mammogram. Yearly followup mammogram recommended. (A) ASSESSMENT CATEGORY: BIRADS Category 1: Negative. A letter regarding these results will be sent to the patient by the facility within 30 days. Approximately 10% of breast cancers are not detected by mammography. A normal mammogram should not delay biopsy of a clinically suspicious abnormality. [id number] Electronically Signed: Claus Dooley MD at 13:31 EDT ,
== END | disposition home or self-care (01) ==
LOC: OPBD 12:27
PROVIDERS: PCP Internal Medicine; Visit Provider Internal Medicine
DX: Z12.31 Encounter for screening mammogram for malignant neoplasm of breast (principal); M81.0 Age-related osteoporosis without current pathological fracture; Z78.0 Asymptomatic menopausal state; Z80.3 Family history of malignant neoplasm of breast
CPT/HCPCS: 77063; 77067; 77081

== ENCOUNTER → 2021-09-23 | Outpatient (CLI) | payer MEDICAID, SELFPAY ==
[2021-09-23 16:02] LABS: Anion Gap 4 (5-15); BUN 12 mg/dL (7-18); Calcium,Total 9.2 mg/dL (8.5-10.1); Chloride 106 mmol/L (98-107); Creatinine, Serum 0.63 mg/dL (0.55-1.02); EST Glomerular Filtration Rate 102 mL/min (>60); Est Glom Filt Rate - Afr Amer 123 mL/min (>60); Glucose 96 mg/dL (74-106); Potassium 4.4 mmol/L (3.5-5.1); Sodium Level 137 mmol/L (136-145)
[2021-09-23 16:10] LABS: Vitamin D,25 Hydroxy 33.8 ng/mL
== END | disposition home or self-care (01) ==
LOC: BIMLAB 14:20
PROVIDERS: PCP Internal Medicine; Referring Provider Internal Medicine; Visit Provider Internal Medicine
DX: M81.0 Age-related osteoporosis without current pathological fracture (principal)
CPT/HCPCS: 36415; 80048; 82306

== ENCOUNTER → 2021-12-11 | Outpatient (CLI) | payer MEDICAID, SELFPAY | END | disposition home or self-care (01) | PROVIDERS: PCP Internal Medicine; Referring Provider Physician Assistant; Visit Provider Physician Assistant | DX: U07.1 COVID-19 (principal) | CPT/HCPCS: 87635; U0003; U0005 ==

== ENCOUNTER 2022-04-28 10:28 | Emergency (ER) | payer MEDICAID, SELFPAY ==
[2022-04-28 10:29] VITALS: BP 128/99; PULSE 105; RESP 18; TEMP 36.6; O2SAT 97; BMI 20.3
--- NOTE | 2022-04-28 11:44 | EDS_ITS ---
HPI History of Present Illness Chief Complaint: Back Onset/Context/Timing Onset: Today Context: Sudden Onset Timing: Continuous Quality: - (Pressure) Location: Thoracic Current Severity: Severe Maximum Severity: Severe Worsened by: improves with Movement Relieved by: Medications and - (Heating pad) Associated Symptoms Associated Symptoms: Negative for Numbness, Tingling, Radiation to Right Leg, Radiation to Left Leg, Fever, Abdominal Pain, Dysuria, Unable to Ambulate, Unable to Transfer, Urinary Retention, Urinary Incontinence, Constipation or Fecal Incontinence Narrative Narrative: Presents with back pain that became worse today. Patient states her pain is over her upper back. Patient states she touched an area in her upper back and noted some drainage from the area. Patient states she feels like there is pressure on her upper back. Patient is concerned that one of her fixation screws may be loosening. Patient states her pain is worse with any movement. Patient states it is better after taking Percocet and using a heating pad. Patient states the pain does radiate into her left arm. Patient states this is chronic for her. Patient has had a history of chronic back pain and multiple back surgeries. [facility] Medical History Anemia Arthritis Chronic back pain DDD (degenerative disc disease) Easy bruising Epigastric abdominal pain Former smoker GERD (gastroesophageal reflux disease) Leg cramps Low iron Medication side effects Neuropathy Occluded PICC line Osteoporosis Poor appetite Tachycardia Tobacco dependence in remission Wears glasses Home Medications ascorbic acid (vitamin C) 500 mg tablet 500 mg PO DAILY vitamin 10/14/20 [History Last Taken 11/09/20 09:00] cyanocobalamin (vitamin B-12) 1,000 mcg tablet 1,000 mcg PO DAILY vitamin 10/14/20 [History Last Taken 11/09/20 09:00] vitamin E 268 mg (400 unit) capsule 400 unit PO DAILY vitamin 10/14/20 [History Last Taken 11/09/20 09:00] cholecalciferol (vitamin D3) 25 mcg (1,000 unit) tablet 25 mcg PO DAILY vitamin #30 tabs 10/29/20 [Rx Last Taken 11/09/20 09:00] lysine 500 mg capsule 250 mg PO DAILY 07/02/21 [History Last Taken Unknown] oxycodone-acetaminophen 5 mg-325 mg tablet 0.5 tab PO TID 07/02/21 [History Last Taken Unknown] denosumab 60 mg/mL subcutaneous syringe (Prolia) 60 mg subcut [id number] #1 mL 10/30/21 [Rx Last Taken Unknown] mirtazapine 30 mg tablet 30 mg PO QHS sleep, appetite #90 tabs 01/06/22 [Rx Last Taken Unknown] cephalexin 500 mg capsule 500 mg PO Q6 #40 CAPSULES 04/28/22 [Rx Last Taken Unknown] Allergy/AdvReac Type Severity Reaction Status Date / Time codeine AdvReac Nausea Verified 04/28/22 10:29 hydrocodone [From Vicodin] AdvReac Nausea Verified 04/28/22 10:29 Surgical History Carpal tunnel syndrome H/O spinal fusion History of cholecystectomy Hx of hysterectomy Social History household members: family Smoking Status: Former smoker alcohol intake: never substance use type: does not use caffeine: Yes seatbelt use: always do you feel safe at home: Yes additional social history: Sumeet- Both on disability ROS ROS ED Constitutional Constitutional ED: Denies chills or fever(s) Eyes Eyes: Denies blurry vision or change in vision ENT ENT ED: Denies rhinorrhea or sore throat Cardiovascular Cardiovascular: Denies chest pain or palpitations Respiratory/Chest Respiratory/Chest: Denies cough or dyspnea Gastrointestinal Gastrointestinal: Denies nausea or vomiting Genitourinary Genitourinary ED: Denies dysuria or hematuria Musculoskeletal Musculoskeletal: Reports back pain; Denies neck pain Integumentary Denies abscess or rash Neurologic Neurologic: Reports headache(s); Denies weakness Allergic/Immunologic Allergic/Immunologic ED: Denies mouth swelling or urticaria EXAM Physical Exam Const Vital Signs: 04/28/22 10:29 Temperature 97.8 F Temperature Source Temporal Pulse Rate 105 H Respiratory Rate 18 Blood Pressure 128/99 H Blood Pressure Mean 108 Pulse Ox 97 Oxygen Delivery Method Room Air Positive well nourished and well developed General Appearance ED: well developed and NAD HEENT Reports moist mucous membranes Back/Spine Back/Spine Narrative: There is tenderness over the upper thoracic spine. There is mild soft tissue swelling. There is a small pustule noted over the T2 spinous process. There is no active drainage. There is no fluctuance. There is minimal surrounding erythema. Range of motion was limited in all motions of the thoracic spine secondary to pain. Strength is 5/5 bilaterally in the upper and lower extremities. There are no sensory deficits noted. Extremity normal to inspection Neuro oriented x3 and no sensory deficits noted Sensorium / Orientation: alert Motor Exam: strength 5/5 throughout MDM MDM MDM Narrative Medical decision making narrative: Differential diagnosis includes infection, loosening of the hardware, fracture, and muscular strain. CBC will be obtained to assess for leukocytosis and anemia. Basic metabolic profile will be obtained to assess for renal function and electrolyte abnormality. X-rays of the thoracic spine will be obtained to a ssess for fracture and loosening of the hardware. Lab Data Attestation: I reviewed the patient's lab results. Lab results narrative: CBC was reviewed and was within normal limits. Basic metabolic profile was reviewed and was within normal limits. Labs: Laboratory Results - last 24 hr 04/28/22 04/28/22 11:40 11:40 WBC 8.4 RBC 4.26 Hgb 13.4 Hct 40.0 MCV 93.9 MCH 31.5 MCHC 33.5 RDW Std Deviation 44.4 H RDW Coeff of Shelly 13.0 Plt Count 407 MPV 8.9 Immature Gran % (Auto) 0.500 Neut % (Auto) 73.4 H Lymph % (Auto) 16.9 L [place] % (Auto) 8.5 Eos % (Auto) 0.2 Baso % (Auto) 0.5 Absolute Neuts (auto) 6.2 Absolute Lymphs (auto) 1.42 Nucleated RBC % 0 Sodium 138 Potassium 4.3 Chloride 106 Carbon Dioxide 29.0 Anion Gap 3 L BUN 16 Creatinine 0.72 Estim Creat Clear Calc 58.19 Est GFR (MDRD) Af Amer 105 Est GFR (MDRD) Non-Af 87 BUN/Creatinine Ratio 22.2 H Glucose 98 Calcium 9.4 Radiography Diagnostic Testing: Clinical Impression(s) from Imaging Studies Thoracic Spine X-Ray 04/28/22 11:58 IMPRESSION: Status post multilevel interpedicular screw and lucio fixation with increased kyphosis. Electronically Signed: Claus Dooley MD at 12:12 EDT , X-rays of the thoracic spine were obtained. There are 2 views. On my independent interpretation, there is no acute fracture or spondylolisthesis. There is no loosening of the hardware. Radiologist also interpreted the x-rays and agrees. Treatment and Re-Evaluation Narrative: Patient was given injection of morphine. Patient is feeling somewhat better on reevaluation. Patient is nauseated. Patient was given a dose of Zofran. Patient was given a prescription for Keflex for the pustule over her spine. Patient was instructed to keep the area clean. Patient was instructed use warm compresses. Patient was instructed to follow-up with her primary care physician and pain management physician in 3 to 5 days. Patient was instructed return if worse in any way. Patient understood and was agreeable with the plan. All questions were answered. Discharge Plan Triage Chief Complaint: Back ED Provider: Phil Tidwell Dx/Rx/DC Orders Clinical Impression: Acute midline thoracic back pain, Skin pustule Instructions: ED Back and Neck Pain, General Prescriptions: New cephalexin [cephalexin] 500 mg capsule 500 mg PO Q6 Qty: 40 0RF No Action Prolia 60 mg/mL syringe 60 mg subcut [id number] Qty: 1 1RF mirtazapine 30 mg tablet 30 mg PO QHS Qty: 90 3RF cyanocobalamin (vitamin B-12) 1,000 mcg Tablet 1,000 mcg PO DAILY ascorbic acid (vitamin C) 500 mg Tablet 500 mg PO DAILY vitamin E 400 unit Capsule 400 unit PO DAILY cholecalciferol (vitamin D3) 25 mcg (1,000 unit) Tablet 25 mcg PO DAILY Qty: 30 0RF lysine 500 mg Capsule 250 mg PO DAILY oxycodone-acetaminophen 5-325 mg Tablet 0.5 tab PO TID Primary Care Provider: Victoriano Marshall Referrals: Victoriano Marshall MD [Primary Care Provider] - 3-5 Days Disposition Disposition: Home, Self Care
[2022-04-28] MEDS: Morphine 4 MG/ML Syringe IV (11:49)
--- NOTE | 2022-04-28 11:58 | RAD_ITS ---
STUDY: X-RAY - THORACIC SPINE REASON FOR EXAM: Female, 61 years old. Injury/Pain TECHNIQUE: 2 view(s) of the thoracic spine were obtained. COMPARISON: None. FINDINGS: There is an increase in the normal thoracic kyphosis. There is no substantial scoliosis. There is demineralization of the thoracic spine with endplate spondylosis. There is multilevel disc space narrowing of the thoracic spine. Loss of height from the upper thoracic vertebrae in keeping with prior injury. The patient is status post interpedicular screw and lucio fixation of the thoracic spine. The soft tissue structures are unremarkable. RAD/Thoracic Spine 2 Views IMPRESSION: Status post multilevel interpedicular screw and lucio fixation with increased kyphosis. Electronically Signed: Claus Dooley MD at 12:12 EDT ,
[2022-04-28 12:03] LABS: Absolute Lymphocyte Count 1.42 X10^3/uL (0.83-4.51); Absolute Neutrophil Count 6.2 X10^3/uL (2.0-7.7); Basophil# 0.04 X10^3/uL; Basophil% 0.5 % (0-1); Eosinophil# 0.02 X10^3/uL; Eosinophils% 0.2 % (0-5); Hemoglobin 13.4 g/dL (12.0-15.0); Lymphocyte # 1.42 X10^3/ul (0.83-4.51); Lymphocyte % 16.9 % (19-41); Mean Corp Hgb Conc 33.5 g/dL (32-36); Mean Corpuscular Hgb 31.5 pg (27.0-32.0); Mean Corpuscular Volume 93.9 fL (81-99); Mean Platelet Vol. 8.9 fl (6.2-12.0); Monocyte# 0.71 X10^3/uL; Monocyte% 8.5 % (0-10); NRBC Flagged by Analyzer 0 % (0-5); Neutrophil # 6.16 X10^3/uL (2.7-7.7); Neutrophil % 73.4 % (47-70); Platelet Count 407 K/mm3 (150-450); RBC Distribution Width SD 44.4 fl (35.1-43.9); Red Blood Count 4.26 M/mm3 (4.2-5.4); White Blood Count 8.4 K/mm3 (4.4-11.0)
[2022-04-28 12:12] LABS: Anion Gap 3 (5-15); BUN 16 mg/dL (7-18); BUN/Creat Ratio 22.2 RATIO (10-20); Calcium,Total 9.4 mg/dL (8.5-10.1); Chloride 106 mmol/L (98-107); Creatinine, Serum 0.72 mg/dL (0.55-1.02); EST Glomerular Filtration Rate 87 mL/min (>60); Est Glom Filt Rate - Afr Amer 105 mL/min (>60); Estimated Creatinine Clearance 58.19 ml/min; Glucose 98 mg/dL (74-106); Potassium 4.3 mmol/L (3.5-5.1); Sodium Level 138 mmol/L (136-145)
[2022-04-28] MEDS: Ondansetron 4 MG/2 ML Vial IV (13:10)
[2022-04-28] MEDS: Cephalexin 500 MG Capsule PO (13:15)
== END 2022-04-28 13:20 | disposition home or self-care (01) ==
PROVIDERS: Emergency Provider Emergency Medicine; PCP Internal Medicine; Visit Provider Emergency Medicine
DX: M54.6 Pain in thoracic spine (principal); L08.9 Local infection of the skin and subcutaneous tissue, unspecified; R11.0 Nausea; G89.29 Other chronic pain; Z87.891 Personal history of nicotine dependence
CPT/HCPCS: 72070; 80048; 85025; 96374; 96375; 99284; A4216; J2405

== ENCOUNTER → 2022-05-07 | Outpatient (CLI) | payer MEDICAID, SELFPAY ==
[2022-05-07 15:26] LABS: Erythrocyte Sedimentation Rate 29 mm/hr (0-30)
[2022-05-07 15:28] LABS: Absolute Lymphocyte Count 2.29 X10^3/uL (0.83-4.51); Absolute Neutrophil Count 4.5 X10^3/uL (2.0-7.7); Basophil# 0.03 X10^3/uL; Basophil% 0.4 % (0-1); Eosinophil# 0.07 X10^3/uL; Eosinophils% 0.9 % (0-5); Hemoglobin 14.2 g/dL (12.0-15.0); Lymphocyte # 2.29 X10^3/ul (0.83-4.51); Lymphocyte % 30.7 % (19-41); Mean Corpuscular Hgb 30.9 pg (27.0-32.0); Mean Corpuscular Volume 93.5 fL (81-99); Mean Platelet Vol. 9.4 fl (6.2-12.0); Monocyte# 0.58 X10^3/uL; Monocyte% 7.8 % (0-10); NRBC Flagged by Analyzer 0 % (0-5); Neutrophil # 4.46 X10^3/uL (2.7-7.7); Neutrophil % 59.8 % (47-70); Platelet Count 442 K/mm3 (150-450); RBC Distribution Width SD 44.4 fl (35.1-43.9); White Blood Count 7.5 K/mm3 (4.4-11.0)
[2022-05-07 15:34] LABS: AST(SGOT) 20 U/L (15-37); Alanine Aminotransfer ALT/SGPT 24 U/L (13-56); Alkaline Phosphatase 120 U/L (45-117); Anion Gap 7 (5-15); BUN 19 mg/dL (7-18); BUN/Creat Ratio 23.5 RATIO (10-20); CRP 8.12 mg/L (0.0-3.0); Calcium,Total 9.6 mg/dL (8.5-10.1); Chloride 104 mmol/L (98-107); Creatinine, Serum 0.81 mg/dL (0.55-1.02); EST Glomerular Filtration Rate 76 mL/min (>60); Est Glom Filt Rate - Afr Amer 92 mL/min (>60); Globulin 4.1 g/dL (2.2-4.2); Glucose 130 mg/dL (74-106); Potassium 3.7 mmol/L (3.5-5.1); Prealbumin 19.7 mg/dL (20.0-40.0); Protein, Total 8.1 g/dL (6.4-8.2); Sodium Level 138 mmol/L (136-145)
== END | disposition home or self-care (01) ==
LOC: BIMLAB 13:29
PROVIDERS: PCP Internal Medicine; Referring Provider Nurse Practitioner Family; Visit Provider Nurse Practitioner Family
DX: T81.89XA Other complications of procedures, not elsewhere classified, initial encounter (principal); X58.XXXA Exposure to other specified factors, initial encounter
CPT/HCPCS: 36415; 80053; 84134; 85025; 85652; 86140; 87070; 87075; 87205

== ENCOUNTER → 2022-06-26 | Outpatient (CLI) | payer MEDICAID, SELFPAY ==
[2022-06-26 16:57] LABS: Anion Gap 6 (5-15); BUN 18 mg/dL (7-18); BUN/Creat Ratio 25.9 RATIO (10-20); Chloride 106 mmol/L (98-107); EST Glomerular Filtration Rate 91 mL/min (>60); Est Glom Filt Rate - Afr Amer 110 mL/min (>60); Glucose 104 mg/dL (74-106); Potassium 4.3 mmol/L (3.5-5.1); Sodium Level 137 mmol/L (136-145)
[2022-06-26 17:04] LABS: Vitamin D,25 Hydroxy 55.3 ng/mL
== END | disposition home or self-care (01) ==
LOC: BIMLAB 14:50
PROVIDERS: PCP Internal Medicine; Referring Provider Internal Medicine; Visit Provider Internal Medicine
DX: M81.0 Age-related osteoporosis without current pathological fracture (principal)
CPT/HCPCS: 36415; 80048; 82306

== ENCOUNTER → 2022-09-11 | Outpatient (CLI) | payer MEDICAID, SELFPAY ==
[2022-09-11 16:34] LABS: Amphetamine Urine VISTA NEGATIVE (<1000 ng/mL); Barbiturate Urine VISTA NEGATIVE (< 200 ng/mL); Benzodiazepine Urine VISTA NEGATIVE (< 200 ng/mL); Cocaine Urine VISTA NEGATIVE (< 300 ng/mL); Ecstacy Urine VISTA NEGATIVE (< 500 ng/mL); Methadone Urine VISTA NEGATIVE (< 300 ng/mL); PCP Urine VISTA NEGATIVE (< 25 ng/mL); THC Urine VISTA NEGATIVE (< 50 ng/mL); Vista UDS pH Range 6
== END | disposition home or self-care (01) ==
PROVIDERS: PCP Internal Medicine; Referring Provider Anesthesiology Pain Medicine; Visit Provider Anesthesiology Pain Medicine
DX: F11.20 Opioid dependence, uncomplicated (principal)
CPT/HCPCS: 80307

== ENCOUNTER → 2023-03-10 | Outpatient (CLI) | payer MEDICAID, SELFPAY ==
[2023-03-10 13:29] LABS: Amphetamine Urine VISTA NEGATIVE (<1000 ng/mL); Barbiturate Urine VISTA NEGATIVE (< 200 ng/mL); Benzodiazepine Urine VISTA NEGATIVE (< 200 ng/mL); Cocaine Urine VISTA NEGATIVE (< 300 ng/mL); Ecstacy Urine VISTA NEGATIVE (< 500 ng/mL); Methadone Urine VISTA NEGATIVE (< 300 ng/mL); PCP Urine VISTA NEGATIVE (< 25 ng/mL); THC Urine VISTA POSITIVE (< 50 ng/mL); Vista UDS pH Range 5
== END | disposition home or self-care (01) ==
LOC: LAB 12:22
PROVIDERS: PCP Internal Medicine; Referring Provider Anesthesiology Pain Medicine; Visit Provider Anesthesiology Pain Medicine
DX: F11.20 Opioid dependence, uncomplicated (principal)
CPT/HCPCS: 80307

== ENCOUNTER → 2023-05-12 | Outpatient (CLI) | payer MEDICAID, SELFPAY | END | disposition home or self-care (01) | LOC: LABSPEC 09:21 | PROVIDERS: PCP Internal Medicine; Referring Provider Nurse Practitioner; Visit Provider Nurse Practitioner | DX: R68.89 Other general symptoms and signs (principal) | CPT/HCPCS: 87631 ==

== ENCOUNTER 2023-07-23 11:00 | Outpatient (RCR) | payer MEDICAID, SELFPAY ==
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
--- NOTE | 2023-07-23 11:21 | HP.PTDCSUM_ITS ---
Discharge Summary D/C summary: It has been my pleasure to treat IGLESIA STONER referred by Dr. Boubacar Cardoso MD, with the diagnosis of CERVICAL SPONDYLOSIS ,POSTLAMINECTOMY SYNDROME for a total of 8 visit(s). Discharge Date: Please see the following information for a summary of their discharge status. 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 STRENGTH: 20# right ,left 10# left Goals Goal 1:: Patient to be I with HEP for neck Goal Progress: Progressing Goal 2:: Patient to demonstrate 40% improvement with less pain cervical pain to function Goal Progress: Not Progressing Goal 3:: Patient to gradually improved ROM cervical spine for function with driving Goal Progress: Not Progressing Goal 4:: Patient to improve neck oswestry score by 3-4 points to improve QOL Goal Progress: Not Progressing Goal Progress: Not Progressing Plan Plan: D/C TO D/C Information d/c sentence: If there are questions or concerns regarding this patient's physical therapy, please feel free to call me at [phone]. Thank you for the referral of this patient. Sincerely, Vladimir Baron, PT, Cert MDT, OCS Balance/Gait/Functional tests Balance/Special Test Scores Oswestry Neck Score: 37
== END 2023-07-23 19:00 | disposition home or self-care (01) ==
LOC: PT 11:00
PROVIDERS: PCP Internal Medicine; Referring Provider Anesthesiology Pain Medicine; Visit Provider Anesthesiology Pain Medicine
DX: M47.812 Spondylosis without myelopathy or radiculopathy, cervical region (principal); M96.1 Postlaminectomy syndrome, not elsewhere classified
CPT/HCPCS: 97110; 97162; 97530

== ENCOUNTER → 2023-07-27 | Outpatient (CLI) | payer MEDICAID, SELFPAY ==
[2023-07-27 16:50] LABS: Absolute Lymphocyte Count 1.25 X10^3/uL (0.83-4.51); Absolute Neutrophil Count 4.3 X10^3/uL (2.0-7.7); Basophil# 0.03 X10^3/uL; Basophil% 0.5 % (0-1); Eosinophil# 0.05 X10^3/uL; Eosinophils% 0.8 % (0-5); Hematocrit 39.6 % (37-47); Hemoglobin 13.2 g/dL (12.0-15.0); Lymphocyte # 1.25 X10^3/ul (0.83-4.51); Mean Corp Hgb Conc 33.3 g/dL (32-36); Mean Corpuscular Hgb 30.6 pg (27.0-32.0); Mean Corpuscular Volume 91.9 fL (81-99); Mean Platelet Vol. 9.7 fl (6.2-12.0); Monocyte# 0.58 X10^3/uL; Monocyte% 9.3 % (0-10); NRBC Flagged by Analyzer 0 % (0-5); Neutrophil # 4.32 X10^3/uL (2.7-7.7); Neutrophil % 68.9 % (47-70); Platelet Count 415 K/mm3 (150-450); RBC Distribution Width CV 12.6 % (11.6-14.6); RBC Distribution Width SD 42.6 fl (35.1-43.9); Red Blood Count 4.31 M/mm3 (4.2-5.4); White Blood Count 6.3 K/mm3 (4.4-11.0)
[2023-07-27 21:18] LABS: Vitamin B12 1825 pg/mL (211-911); Vitamin D,25 Hydroxy 44.1 ng/mL
[2023-07-27 21:59] LABS: ALB/GLOB Ratio 1.1 RATIO (0.9-2.4); AST(SGOT) 20 U/L (15-37); Alanine Aminotransfer ALT/SGPT 17 U/L (13-56); Albumin, Serum 4.2 g/dL (3.2-5.0); Alkaline Phosphatase 78 U/L (45-117); Anion Gap 7 (5-15); BUN 13 mg/dL (7-18); BUN/Creat Ratio 16.4 RATIO (10-20); Calcium,Total 10.3 mg/dL (8.5-10.1); Chloride 101 mmol/L (98-107); Cholesterol 222 mg/dL (200); Creatinine, Serum 0.79 mg/dL (0.55-1.02); EST Glomerular Filtration Rate 78 mL/min (>60); Est Glom Filt Rate - Afr Amer 94 mL/min (>60); Globulin 3.7 g/dL (2.2-4.2); Glucose 98 mg/dL (74-106); High Density Lipoprotein 50 mg/dL; Potassium 4.5 mmol/L (3.5-5.1); Protein, Total 7.9 g/dL (6.4-8.2); Sodium Level 133 mmol/L (136-145); Triglycerides 100 mg/dL; Very Low Density Lipoprotein 20 mg/dL (5-40)
== END | disposition home or self-care (01) ==
LOC: BIMLAB 14:52
PROVIDERS: PCP Internal Medicine; Visit Provider Internal Medicine
DX: Z13.21 Encounter for screening for nutritional disorder (principal); M81.0 Age-related osteoporosis without current pathological fracture; Z13.6 Encounter for screening for cardiovascular disorders
CPT/HCPCS: 36415; 80053; 80061; 82306; 82607; 85025

== ENCOUNTER → 2023-08-24 | Outpatient (CLI) | payer MEDICAID, SELFPAY ==
[2023-08-24 12:03] LABS: Absolute Neutrophil Count 6.1 X10^3/uL (2.0-7.7); Basophil# 0.03 X10^3/uL; Basophil% 0.4 % (0-1); Eosinophil# 0.03 X10^3/uL; Eosinophils% 0.4 % (0-5); Hematocrit 38.8 % (37-47); Hemoglobin 13.3 g/dL (12.0-15.0); Lymphocyte % 13.5 % (19-41); Mean Corp Hgb Conc 34.3 g/dL (32-36); Mean Corpuscular Hgb 31.5 pg (27.0-32.0); Mean Corpuscular Volume 91.9 fL (81-99); Monocyte# 0.89 X10^3/uL; Monocyte% 10.9 % (0-10); NRBC Flagged by Analyzer 0 % (0-5); Neutrophil # 6.05 X10^3/uL (2.7-7.7); Neutrophil % 74.2 % (47-70); Platelet Count 398 K/mm3 (150-450); RBC Distribution Width CV 12.8 % (11.6-14.6); RBC Distribution Width SD 42.7 fl (35.1-43.9); Red Blood Count 4.22 M/mm3 (4.2-5.4); White Blood Count 8.2 K/mm3 (4.4-11.0)
[2023-08-24 13:36] LABS: ALB/GLOB Ratio 1.2 RATIO (0.9-2.4); AST(SGOT) 13 U/L (15-37); Alanine Aminotransfer ALT/SGPT 14 U/L (13-56); Albumin, Serum 4.4 g/dL (3.2-5.0); Alkaline Phosphatase 71 U/L (45-117); Anion Gap 11 (5-15); BUN 15 mg/dL (7-18); BUN/Creat Ratio 18.5 RATIO (10-20); Calcium,Total 9.3 mg/dL (8.5-10.1); Chloride 100 mmol/L (98-107); Creatinine, Serum 0.81 mg/dL (0.55-1.02); EST Glomerular Filtration Rate 76 mL/min (>60); Est Glom Filt Rate - Afr Amer 92 mL/min (>60); Globulin 3.8 g/dL (2.2-4.2); Glucose 103 mg/dL (74-106); Potassium 4.2 mmol/L (3.5-5.1); Protein, Total 8.2 g/dL (6.4-8.2); Sodium Level 132 mmol/L (136-145)
== END | disposition home or self-care (01) ==
LOC: BIMLAB 11:12
PROVIDERS: PCP Internal Medicine; Referring Provider Internal Medicine; Visit Provider Internal Medicine
DX: K59.00 Constipation, unspecified (principal); R10.9 Unspecified abdominal pain
CPT/HCPCS: 36415; 80053; 85025

== ENCOUNTER 2023-08-25 08:55 | Observation (INO) | payer MEDICAID, SELFPAY ==
[2023-08-25] VITALS (15 sets, daily range): BP systolic 113–132; BP diastolic 67–114; PULSE 51–95; RESP 16–18; TEMP 36.1–37.3; O2SAT 98–100; BMI 21.9; BMI 23.9
--- NOTE | 2023-08-25 09:16 | EX.ED.DYSGE1 ---
HPI History of Present Illness Chief Complaint: General Illness Informant: patient Onset/Context/Timing Onset: Days (5) Context: Gradual Onset Timing: Continuous Quality: Feels like food gets stuck Location: Throat Worsened by: Eating Relieved by: Nothing Narrative Narrative: Patient presents with difficulty swallowing that has been getting worse over the past 5 days. Patient states it feels like food gets stuck in her throat. Patient states she has been able to keep down some trev ean. Patient states it was only approximately 10 ounces of trev ean in the last 5 days. Patient states she is unable to eat solid food. Patient states she tried using a chicken pot pie and states she got some of it down but was unable to swallow any more food after that. Patient admits to some subjective chills. Patient admits to some nausea but denies any vomiting. Patient states she feels dizzy at times. Patient states her primary care physician ordered outpatient blood work and an outpatient CT scan. Patient states she went for the CT scan today but was referred to the emergency department due to difficulties getting the CT scan authorized by her insurance. [facility] Medical History Nausea Constipation Abdominal discomfort Swallowing difficulty Hyperlipidemia Localized skin mass, lump, or swelling Encounter for vitamin deficiency screening Screening for cardiovascular condition Lymphadenopathy, inguinal Nonhealing surgical wound Medication side effects Osteoporosis GERD (gastroesophageal reflux disease) DDD (degenerative disc disease) Wears glasses Arthritis Low iron Easy bruising Poor appetite Epigastric abdominal pain Former smoker Leg cramps Neuropathy Chronic back pain Anemia Occluded PICC line Tachycardia Tobacco dependence in remission Home Medications ?Medication ?Instructions ?Recorded ?Last Taken ?Type ascorbic acid (vitamin C) 500 mg 500 mg PO DAILY vitamin 10/14/20 11/09/20 09:00 History tablet cyanocobalamin (vitamin B-12) 1,000 mcg PO DAILY vitamin 10/14/20 11/09/20 09:00 History 1,000 mcg tablet vitamin E 268 mg (400 unit) capsule 400 unit PO DAILY vitamin 10/14/20 11/09/20 09:00 History cholecalciferol (vitamin D3) 25 25 mcg PO DAILY vitamin #30 tabs 10/29/20 11/09/20 09:00 Rx mcg (1,000 unit) tablet lysine 500 mg capsule 250 mg PO DAILY 05/24/22 Unknown History vegtable laxative PO 06/26/22 Unknown History oxycodone-acetaminophen 5 mg-325 1 tab PO BID PRN 01/26/23 Unknown History mg tablet (Percocet) denosumab 60 mg/mL subcutaneous 60 mg subcut [id number] #1 mL 07/27/23 Unknown Rx syringe (Prolia) omeprazole 40 mg capsule,delayed 40 mg PO DAILY #90 caps 07/27/23 Unknown Rx release trazodone 50 mg tablet 50 mg PO QHS PRN sleep #90 tabs 07/27/23 Unknown Rx ondansetron 4 mg disintegrating 4 mg PO Q6H PRN nausea and 08/14/23 Unknown Rx tablet vomiting #60 tabs Allergy/AdvReac Type Severity Reaction Status Date / Time codeine AdvReac Nausea Verified 08/24/23 10:27 hydrocodone (From Vicodin) AdvReac Nausea Verified 08/24/23 10:27 Surgical History Carpal tunnel syndrome Hx of hysterectomy History of cholecystectomy H/O spinal fusion Social History household members: family Smoking Status: Former smoker alcohol intake: never substance use type: does not use caffeine: Yes seatbelt use: always do you feel safe at home: Yes additional social history: Sumeet- Both on disability ROS ROS ED Constitutional Constitutional ED: Reports chills and subjective; Denies fever(s) Eyes Eyes: Denies blurry vision or change in vision ENT ENT ED: Denies rhinorrhea or sore throat Cardiovascular Cardiovascular: Denies chest pain or palpitations Respiratory/Chest Respiratory/Chest: Denies cough or dyspnea Gastrointestinal Gastrointestinal: Reports abdominal pain, constipation and nausea; Denies vomiting Genitourinary Genitourinary ED: Denies dysuria or hematuria Musculoskeletal Musculoskeletal: Reports back pain; Denies neck pain Integumentary Denies abscess or rash Neurologic Neurologic: Denies headache(s) or weakness Allergic/Immunologic Allergic/Immunologic ED: Denies mouth swelling or urticaria EXAM Physical Exam Const Vital Signs: 08/25/23 08:56 08/25/23 09:09 08/25/23 10:56 Temperature 96.9 F L 98.1 F Temperature Source Temporal Oral Pulse Rate 67 66 Respiratory Rate 16 16 Respiratory Effort Normal Non-Labored Blood Pressure 131/80 H 118/70 Blood Pressure Mean 97 86 Pulse Ox 98 100 Oxygen Delivery Method Room Air Room Air 08/25/23 12:00 08/25/23 13:05 Temperature 98.1 F 98.3 F Temperature Source Oral Oral Pulse Rate 64 60 Respiratory Rate 16 16 Respiratory Effort Blood Pressure 117/69 116/77 Blood Pressure Mean 85 90 Pulse Ox 99 98 Oxygen Delivery Method Room Air Room Air Positive well nourished and well developed General Appearance ED: well developed and NAD HEENT Reports moist mucous membranes HEENT Narrative: Oropharynx is clear. Airway is patent. There is no postnasal drainage noted. Neck supple and no JVD Resp normal respiratory effort and clear to auscultation bilaterally Cardio regular rate and regular rhythm GI non-distended Palpation: soft and tender epigastric, LUQ and RUQ; Negative for guarding or rebound tenderness present Neuro oriented x3, CN's II-XII intact bilaterally and no sensory deficits noted Sensorium / Orientation: alert Motor Exam: strength 5/5 throughout Psych mental status grossly normal MDM MDM MDM Narrative Medical decision making narrative: Differential diagnosis includes pharyngeal mass, esophageal food obstruction, gastritis, gastroesophageal reflux disease, pancreatitis, and peptic ulcer disease. CBC will be obtained to assess for leukocytosis and anemia. Comprehensive metabolic profile will be obtained to assess for electrolyte abnormality, renal function, and hepatic function. Lipase will be obtained to assess for pancreatitis. CT scan of the soft tissue neck will be obtained to assess for pharyngeal mass. CT scan of the abdomen pelvis will be obtained to assess for bowel obstruction, perforation, and pancreatitis. Lab Data Attestation: I reviewed the patient's lab results. Lab results narrative: CBC was reviewed and was within normal limits. Comprehensive metabolic profile was reviewed. BUN was slightly elevated at 21. Sodium was slightly low at 134. The remainder was within normal limits. Lipase was reviewed and was normal at 30. Labs: Laboratory Results - last 24 hr 08/25/23 09:30 WBC 8.0 RBC 4.45 Hgb 13.6 Hct 40.2 MCV 90.3 MCH 30.6 MCHC 33.8 RDW Std Deviation 42.0 RDW Coeff of Shelly 12.7 Plt Count 404 MPV 8.6 Immature Gran % (Auto) 0.500 Neut % (Auto) 72.9 H Lymph % (Auto) 14.8 L [place] % (Auto) 10.7 H Eos % (Auto) 0.7 Baso % (Auto) 0.4 Absolute Neuts (auto) 5.8 Absolute Lymphs (auto) 1.19 Nucleated RBC % 0 Sodium 134 L Potassium 3.9 Chloride 104 Carbon Dioxide 24.0 Anion Gap 6 BUN 21 H Creatinine 0.83 Estim Creat Clear Calc 49.83 Est GFR (MDRD) Af Amer 89 Est GFR (MDRD) Non-Af 74 BUN/Creatinine Ratio 25.3 H Glucose 104 Calcium 9.6 Total Bilirubin 0.40 AST 8 L ALT 13 Alkaline Phosphatase 69 Total Protein 8.2 Albumin 4.3 Globulin 3.9 Albumin/Globulin Ratio 1.1 Lipase 30 Radiography Diagnostic Testing: Clinical Impression(s) from Imaging Studies Soft Tissue Neck CT 08/25/23 09:21 IMPRESSION: Opacification of the sphenoid sinuses bilaterally. Electronically Signed: Claus Dooley MD at 10:58 EDT , Abdomen/Pelvis CT 08/25/23 09:22 IMPRESSION: Enlarged bilateral inguinal lymph nodes more prominent on the left side. Moderate amount of fecal material is seen in the colon. Scattered sigmoid diverticula. Status post cholecystectomy and hysterectomy. Electronically Signed: Claus Dooley MD at 10:56 EDT , CT scan of the soft tissue neck was obtained. There is pacification of the sphenoid sinuses bilaterally. There is no soft tissue mass noted. This was interpreted by the radiologist and was also independently reviewed by myself. CT scan of the abdomen pelvis was obtained. There are enlarged bilateral inguinal lymph nodes. There is moderate amount of fecal material in the colon. There is scattered sigmoid diverticula. There is no acute process noted. There is no intra-abdominal mass. There is no free air or free fluid. This was interpreted by the radiologist and was also independently reviewed by myself. Treatment and Re-Evaluation :: Patient was given IV fluids. Patient was given a dose of glucagon. Patient had no improvement with this. Patient did start having some nausea and vomiting but was unable to vomit anything up or swallow anything. Case was discussed with Dr. Schuster from general surgery. He will take the patient to endoscopy later today. Patient understood and was agreeable with the plan. All questions were answered. Discharge Plan Triage Chief Complaint: General Illness ED Provider: Phil Tidwell Dx/Rx/DC Orders Clinical Impression: Dysphagia, Esophageal obstruction due to food impaction Primary Care Provider: Victoriano Marshall Disposition Disposition: Acute Care Hospital [facility]
--- NOTE | 2023-08-25 09:21 | CT_ITS ---
STUDY: CT SOFT TISSUE NECK WITH CONTRAST REASON FOR EXAM: Female, 62 years old. Dysphagia RADIATION DOSAGE (If Supplied By Facility): CTDIvol = ( 6.19 ) mGy, DLP = ( 177.80 ) mGycm TECHNIQUE: The patient was scanned in a multi-detector CT scanner. High resolution transaxial imaging was performed following intravenous administration of IV 100mL Isovue-370. Sagittal and coronal images were reconstructed. Individualized dose optimization techniques were used for this CT. COMPARISON: None. FINDINGS: Normal bilateral parotid glands. Normal bilateral pressed or blown glass worker spaces. Normal bilateral parapharyngeal spaces. Normal bilateral carotid spaces. Normal bilateral sublingual and submandibular glands and spaces. Normal visualized nasopharynx. Normal retropharyngeal space. Normal perivertebral space. Normal visualized bilateral faucial tonsils. The visualized tongue, tongue base and oropharynx are normal. The visualized cervical lymph nodes (levels I-) are within normal size limits, and maintain normal morphology. There is no demonstrated solid or cystic mass lesion. There is no abnormal contrast enhancement. Normal epiglottis, bilateral vallecula and hypopharynx. The pre-epiglottic and paraglottic adipose spaces are normal. Normal visualized bilateral piriform sinuses, aryepiglottic folds, vocal cords, and arytenoid-cricoid articulations. Normal subglottic trachea. Normal bilateral lobes of the thyroid gland. Normal visualized pulmonary apices. There is opacification of the sphenoid sinuses bilaterally. Prior interpedicular screw fixation of the upper thoracic spine. CT/Soft Tissue Neck WITH Contrast IMPRESSION: Opacification of the sphenoid sinuses bilaterally. Electronically Signed: Claus Dooley MD at 10:58 EDT ,
--- NOTE | 2023-08-25 09:22 | CT_ITS ---
STUDY: CT ABDOMEN AND PELVIS WITH CONTRAST REASON FOR EXAM: Female, 62 years old. Decreased energy. Nausea and vomiting since Thursday. RADIATION DOSAGE (If Supplied By Facility): CTDIvol = ( 6.98 ) mGy, DLP = ( 304.99 ) mGycm TECHNIQUE: Transaxial images were obtained from the dome of the diaphragm to the symphysis pubis without oral contrast. IV 100mL Isovue-370 was administered. Sagittal and coronal images were reconstructed. Individualized dose optimization techniques were used for this CT. COMPARISON: Comparison is made with prior study May 02, 2021. FINDINGS: Stable focal scarring adjacent to the right cardiac border. The visualized portions of the heart are within normal limits. Normal liver. There are surgical clips in the gallbladder fossa consistent with a prior cholecystectomy. Normal spleen. Normal pancreas. Normal bilateral adrenal glands. Normal right kidney. Normal left kidney. Normal visualized stomach. Normal small intestine. There are scattered colonic diverticula consistent with diverticulosis. Moderate amount of fecal material is seen in the colon. There is non-visualization of the appendix. Normal abdominal aorta. Normal inferior vena cava. Normal retroperitoneum. The urinary bladder is empty. There is absence of the uterus consistent with a prior hysterectomy. Enlarged bilateral inguinal lymph nodes more prominent on the left side. The patient is status post multilevel screw and lucio fixation of the lumbar spine. CT/Abdomen/Pelvis W IV Cont ONLY IMPRESSION: Enlarged bilateral inguinal lymph nodes more prominent on the left side. Moderate amount of fecal material is seen in the colon. Scattered sigmoid diverticula. Status post cholecystectomy and hysterectomy. Electronically Signed: Claus Dooley MD at 10:56 EDT ,
[2023-08-25 09:40] LABS: Absolute Lymphocyte Count 1.19 X10^3/uL (0.83-4.51); Absolute Neutrophil Count 5.8 X10^3/uL (2.0-7.7); Basophil# 0.03 X10^3/uL; Basophil% 0.4 % (0-1); Eosinophil# 0.06 X10^3/uL; Eosinophils% 0.7 % (0-5); Hematocrit 40.2 % (37-47); Hemoglobin 13.6 g/dL (12.0-15.0); Lymphocyte # 1.19 X10^3/ul (0.83-4.51); Lymphocyte % 14.8 % (19-41); Mean Corp Hgb Conc 33.8 g/dL (32-36); Mean Corpuscular Hgb 30.6 pg (27.0-32.0); Mean Corpuscular Volume 90.3 fL (81-99); Mean Platelet Vol. 8.6 fl (6.2-12.0); Monocyte# 0.86 X10^3/uL; Monocyte% 10.7 % (0-10); NRBC Flagged by Analyzer 0 % (0-5); Neutrophil # 5.84 X10^3/uL (2.7-7.7); Neutrophil % 72.9 % (47-70); Platelet Count 404 K/mm3 (150-450); RBC Distribution Width CV 12.7 % (11.6-14.6); Red Blood Count 4.45 M/mm3 (4.2-5.4)
[2023-08-25] MEDS: 0.9% Normal Saline (1000mL) 1,000 ML 1000 ML IV (10:00)
[2023-08-25 10:03] LABS: ALB/GLOB Ratio 1.1 RATIO (0.9-2.4); AST(SGOT) 8 U/L (15-37); Alanine Aminotransfer ALT/SGPT 13 U/L (13-56); Albumin, Serum 4.3 g/dL (3.2-5.0); Alkaline Phosphatase 69 U/L (45-117); Anion Gap 6 (5-15); BUN 21 mg/dL (7-18); BUN/Creat Ratio 25.3 RATIO (10-20); Calcium,Total 9.6 mg/dL (8.5-10.1); Chloride 104 mmol/L (98-107); Creatinine, Serum 0.83 mg/dL (0.55-1.02); EST Glomerular Filtration Rate 74 mL/min (>60); Est Glom Filt Rate - Afr Amer 89 mL/min (>60); Estimated Creatinine Clearance 49.83 ml/min; Globulin 3.9 g/dL (2.2-4.2); Glucose 104 mg/dL (74-106); Lipase 30 U/L (13-75); Potassium 3.9 mmol/L (3.5-5.1); Protein, Total 8.2 g/dL (6.4-8.2); Sodium Level 134 mmol/L (136-145)
[2023-08-25] MEDS: Glucagon 1 MG/ML Syringe IV (11:31)
--- NOTE | 2023-08-25 12:53 | PCM.HP.STD ---
[facility] - General General Date of Admission: 08/25/23 Date of Service: 08/25/23 Chief Complaint: Difficulty swallowing HPI Narrative IGLESIA STONER, is a 62 F who presents with a 5 day history of worsening difficulty with solid and intermittently liquids. She notes she is continuing to loose weight secondary to not being able to eat. Patient states she feels hungry. She notes she goes to eat a few bites and then she notes the food feels as though it is stuck in her throat and then she is unable to completely swallow. She notes trying liquids to allow for the food to go down and she is unable to allow the food to continue to descend into the stomach. She notes she will have to wait hours prior to attempting to eat another bite. She notes food smells good, however when she goes to consume the food, she is unable to eat but 3-6 bites at a time prior to the feeling of the food getting stuck. She notes difficulty swallowing for the last 1 month. she was evaluated by her PCP who placed her on omeprazole, however she has not been able to take this tablet as she is not able to swallow it for fear it will get stuck. She notes loosing approximately 4 pounds over the last month. She states she has not had a bowel movement since last . She is not able to consume but only a small amount of liquids. She notes recently having a daughter diagnosed with ovarian cancer in March. She states currently she is going through chemotherapy and radiation. Patient states she is having a rough time with treatment. She notes going to visit often. Patient notes having an upper and lower scope by Dr. Ash in June of 2021. Findings: The Z-line was irregular and was found 40 cm from the incisors. Biopsies were taken with a cold forceps for histology. Striped moderately erythematous mucosa without bleeding was found in the gastric antrum. Biopsies were taken with a cold forceps for histology. Biopsies were taken with a cold forceps for Helicobacter pylori cultures. The examined duodenum was normal. The cardia and gastric fundus were normal on retroflexion. Findings: Hemorrhoids were found on perianal exam. Non-bleeding external hemorrhoids were found. The hemorrhoids were small. The entire examined colon appeared normal. A few small-mouthed diverticula were found in the sigmoid colon. Patient was placed on Carafate 1 tablet QID for 2 weeks. She was on omeprazole up until approximately 5 days ago and she stopped taking it. Patient was to be scheduled for a CT scan of the ab/pel yesterday, however due to insurance not approving the CT scan, the patient went home. She presented to the ED, due to fear there is food that has been stuck for some time. Her last attempted meal was some fries and small burger which took her from 2-8 pm to completely eat. Patient is fearful there is something going on. CT scan of ab/pel was obtained demonstrating enlarged bilateral inguinal lymph nodes more prominent on the left side. Moderate amount of fecal material is seen in the colon. Scattered sigmoid diverticula noted. S/p cholecystectomy and hysterectomy. A CT of the soft tissues of the neck demonstrated opacification of the sphenoid sinuses bilaterally. Patient also notes she has had 5 back surgeries. She notes her second back surgery she developed a staph infection, which she became septic from. She denies any cardiac history. She denies any complications with anesthesia previously. [facility] Medical History Nausea Constipation Abdominal discomfort Swallowing difficulty Hyperlipidemia Localized skin mass, lump, or swelling Encounter for vitamin deficiency screening Screening for cardiovascular condition Lymphadenopathy, inguinal Nonhealing surgical wound Medication side effects Osteoporosis GERD (gastroesophageal reflux disease) DDD (degenerative disc disease) Wears glasses Arthritis Low iron Easy bruising Poor appetite Epigastric abdominal pain Former smoker Leg cramps Neuropathy Chronic back pain Anemia Occluded PICC line Tachycardia Tobacco dependence in remission Home Medications ?Medication ?Instructions ?Recorded ?Last Taken ?Type ascorbic acid (vitamin C) 500 mg 500 mg PO DAILY vitamin 10/14/20 11/09/20 09:00 History tablet cyanocobalamin (vitamin B-12) 1,000 mcg PO DAILY vitamin 10/14/20 11/09/20 09:00 History 1,000 mcg tablet vitamin E 268 mg (400 unit) capsule 400 unit PO DAILY vitamin 10/14/20 11/09/20 09:00 History cholecalciferol (vitamin D3) 25 25 mcg PO DAILY vitamin #30 tabs 10/29/20 11/09/20 09:00 Rx mcg (1,000 unit) tablet lysine 500 mg capsule 250 mg PO DAILY 07/02/21 Unknown History vegtable laxative PO 06/26/22 Unknown History oxycodone-acetaminophen 5 mg-325 1 tab PO BID PRN 01/26/23 Unknown History mg tablet (Percocet) denosumab 60 mg/mL subcutaneous 60 mg subcut [id number] #1 mL 07/27/23 Unknown Rx syringe (Prolia) omeprazole 40 mg capsule,delayed 40 mg PO DAILY #90 caps 07/27/23 Unknown Rx release trazodone 50 mg tablet 50 mg PO QHS PRN sleep #90 tabs 07/27/23 Unknown Rx ondansetron 4 mg disintegrating 4 mg PO Q6H PRN nausea and 08/14/23 Unknown Rx tablet vomiting #60 tabs Allergy/AdvReac Type Severity Reaction Status Date / Time codeine AdvReac Nausea Verified 08/24/23 10:27 hydrocodone (From Vicodin) AdvReac Nausea Verified 08/24/23 10:27 Surgical History Carpal tunnel syndrome Hx of hysterectomy History of cholecystectomy H/O spinal fusion Social History household members: family Smoking Status: Former smoker alcohol intake: never substance use type: does not use caffeine: Yes seatbelt use: always do you feel safe at home: Yes additional social history: Sumeet- Both on disability ROS Constitutional Constitutional: Reports change in weight, fatigue and weight loss Eyes Eyes: Reports systems reviewed and no addt'l complaints, except as documented ENT HEENT: Reports systems reviewed and no addt'l complaints, except as documented Cardiovascular Cardiovascular: Reports systems reviewed and no addt'l complaints, except as documented Respiratory/Chest Respiratory/Chest: Reports systems reviewed and no addt'l complaints, except as documented Gastrointestinal Gastrointestinal: Reports abdominal pain and dry heaves Genitourinary Genitourinary: Reports systems reviewed and no addt'l complaints, except as documented Musculoskeletal Musculoskeletal: Reports systems reviewed and no addt'l complaints, except as documented Integumentary Integumentary: Reports systems reviewed and no addt'l complaints, except as documented Neurologic Neurologic: Reports systems reviewed and no addt'l complaints, except as documented Psychiatric Psychiatric: Reports systems reviewed and no addt'l complaints, except as documented Endocrine Endocrinology: Reports systems reviewed and no addt'l complaints, except as documented Hematologic/Lymphatic Hematologic/Lymphatic: Reports systems reviewed and no addt'l complaints, except as documented Allergic/Immunologic Allergic/Immunologic: Reports systems reviewed and no addt'l complaints, except as documented Vital Signs Vital Signs Vital Signs: 08/25/23 08:56 08/25/23 09:09 08/25/23 10:56 Temperature 96.9 F L 98.1 F Temperature Source Temporal Oral Pulse Rate 67 66 Respiratory Rate 16 16 Respiratory Effort Normal Non-Labored Blood Pressure 131/80 H 118/70 Blood Pressure Mean 97 86 Pulse Ox 98 100 Oxygen Delivery Method Room Air Room Air 08/25/23 12:00 Temperature 98.1 F Temperature Source Oral Pulse Rate 64 Respiratory Rate 16 Respiratory Effort Blood Pressure 117/69 Blood Pressure Mean 85 Pulse Ox 99 Oxygen Delivery Method Room Air Weight Weight: 112 lb Body Mass Index (BMI) 21.9 Physical Exam Const alert, oriented x3 and no apparent distress HEENT normocephalic and head/scalp atraumatic Eyes PERRL Neck full ROM Chest inspection of chest normal Resp normal respiratory effort and clear to auscultation bilaterally Cardio regular rate and regular rhythm GI GI Narrative: Abdomen- epigastric discomfort. Hypoactive bowel sounds. no CVA tenderness Back/Spine no CVA tenderness Extremity normal to inspection Skin no rashes or lesions noted Neuro no focal motor deficits and no sensory deficits noted Psych mental status grossly normal and thought process normal Results Lab / Micro Data 08/25/23 09:30 08/25/23 09:30 Labs: Laboratory Results - last 24 hr 08/25/23 09:30: WBC 8.0, RBC 4.45, Hgb 13.6, Hct 40.2, MCV 90.3, MCH 30.6, MCHC 33.8, RDW Std Deviation 42.0, RDW Coeff of Shelly 12.7, Plt Count 404, MPV 8.6, Immature Gran % (Auto) 0.500, Neut % (Auto) 72.9 H, Lymph % (Auto) 14.8 L, [place] % (Auto) 10.7 H, Eos % (Auto) 0.7, Baso % (Auto) 0.4, Absolute Neuts (auto) 5.8, Absolute Lymphs (auto) 1.19, Nucleated RBC % 0, Sodium 134 L, Potassium 3.9, Chloride 104, Carbon Dioxide 24.0, Anion Gap 6, BUN 21 H, Creatinine 0.83, Estim Creat Clear Calc 49.83, Est GFR (MDRD) Af Amer 89, Est GFR (MDRD) Non-Af 74, BUN/Creatinine Ratio 25.3 H, Glucose 104, Calcium 9.6, Total Bilirubin 0.40, AST 8 L, ALT 13, Alkaline Phosphatase 69, Total Protein 8.2, Albumin 4.3, Globulin 3.9, Albumin/Globulin Ratio 1.1, Lipase 30 Imaging Radiology Impression Soft Tissue Neck CT 08/25/23 09:21 IMPRESSION: Opacification of the sphenoid sinuses bilaterally. Electronically Signed: Claus Dooley MD at 10:58 EDT , Abdomen/Pelvis CT 08/25/23 09:22 IMPRESSION: Enlarged bilateral inguinal lymph nodes more prominent on the left side. Moderate amount of fecal material is seen in the colon. Scattered sigmoid diverticula. Status post cholecystectomy and hysterectomy. Electronically Signed: Claus Dooley MD at 10:56 EDT , Assessment & Plan Assessment/Plan (1) Esophageal obstruction due to food impaction: PLAN: I am seeing this patient in conjunction with Dr. Schuster. He will independently evaluate this patient. Patient presents with a 5 day history of difficulty swallowing with solid foods becoming stuck and liquids intermittently being stuck. She notes a history of about 1 month of dysphagia. She notes multiple episodes of dry heaving. She has completed a CT scan of ab/pel and CT scan of soft tissue which were both unremarkable in the ED. Patient was given a dose of glucagon in the ED which resulted in the patient dry heaving. She had another episode of dry heaving while I was in the room examining her. Dr. Schuster will plan to perform an emergent EGD with possible biopsies and disimpaction of possible food. Procedure details, risks and benefits have been explained. Patient verbally understands and agrees with the plan. I have discussed with the patient that Dr. Schuster will determine following the procedure if she will need to be admitted for observation or discharged to home. Patient has had the opportunity to ask and have questions answered. I have contacted charge nurse in [place], [place]. She noted EGD at approximately [address] Schuster to follow himself. Thank you for allowing us to participate in this patient's care. Charges/Coding Visit Charges OBSV E&M: 28301 Observ/hosp same date L2
[2023-08-25] MEDS: Acetaminophen 325 MG Tablet 650 MG PO (14:12)
--- NOTE | 2023-08-25 14:17 | PRE.ANES_ITS ---
ASA Classification* ASA Classification ASA Classification: 3 Assessment & Plan Anesthesia* Anesthesia Assessment Anesthesia Assessment: Discussed sedation and/or anesthesia options, risks, benefits, and alternatives with patient/parents/legal guardian/POA. Questions invited. The patient/parents/legal guardian/POA seems to understand and agrees to proceed with anesthesia plan. Reviewed the physical assessment, medical history, allergy history and patient home medications list prior to surgery/procedure/anesthetic and documented any changes. Performed airway and anesthesia risk assessments. Anesthesia Type Anesthesia Type: MAC History Source History Obtained from:: Patient and Chart Anesthesia Focused Assessment* Temperature: 98.3 F Pulse Rate: 60 Blood Pressure: 116/77 Respiratory Rate: 16 Pulse Ox: 98 Oxygen Delivery Method: Room Air Airway Assessment Mouth opens: 2 cm Mallampati Score: IV Teeth Condition: Caps/Crowns (Multiple crowns all tight) Neck Range of motion (ROM): Limited ROM (Patient is status post spinal fusion up to the back of her neck for scoliosis. Extension is limited at this time.) Focused Labs Anesthesia Preop lab: CBC WBC 8.0 K/mm3 (4.4-11.0) 08/25/23 09:30 RBC 4.45 M/mm3 (4.2-5.4) 08/25/23 09:30 Hgb 13.6 g/dL (12.0-15.0) 08/25/23 09:30 Hct 40.2 % (37-47) 08/25/23 09:30 Plt Count 404 K/mm3 (150-450) 08/25/23 09:30 CHEMISTRY Potassium 3.9 mmol/L (3.5-5.1) 08/25/23 09:30 Sodium 134 mmol/L (136-145) L 08/25/23 09:30 Magnesium 1.9 mg/dL (1.6-2.6) 10/18/20 06:00 Phosphorus 3.4 mg/dL (2.5-4.9) 10/15/20 09:30 BUN 21 mg/dL (7-18) H 08/25/23 09:30 Creatinine 0.83 mg/dL (0.55-1.02) 08/25/23 09:30 Glucose 104 mg/dL (74-106) 08/25/23 09:30 POC Glucose 89 mg/dL (70-110) 01/08/16 15:10 TSH 0.90 uIU/mL (0.358-3.74) 11/06/20 15:15 COAG PT 13.9 SECONDS (11.7-14.9) 10/18/20 11:15 Pre-Assessment Diagnosis/Proposed Procedure Planned Operative Procedure(s): Esophagogastroduodenoscopy with possible biopsy or possible dilation Anesthesia History 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 When Was Last Pacemaker Check QUESTION #4 FULL TEXT: You/Your Family Experience fever (hyperthermia) with Anesthesia Last Oral Intake Last Oral intake: Last Oral Intake NPO since 19:00 08/25/23 13:05 Meds taken in AM with sips of Yes 08/25/23 13:05 water? Meds patient instructed to Vitamin A,B,C,D,E 08/25/23 13:05 take am of surgery vegetable capsule laxative lysine Any additional information?: Yes NPO since: 07:00 (Coffee with cream at 7 AM.) PONV PONV - ballistic expert: PONV - ballistic expert Female HX of Motion Sickness HX of N/V After Surgery Non-Smoker Duration of Surgery greater than 60 minutes Number of Risk Factors PONV Score Any additional information?: Yes Female: Yes HX of Motion Sickness: No HX of N/V After Surgery: Yes Non-Smoker: No Duration of Surgery greater than 60 minutes: No Number of Risk Factors: 2 PONV Score: Moderate Risk Height & Weight Height & Weight: Anesthesia: Height & Weight Height 4 ft 11.84 in 08/25/23 13:05 Weight: 50.802 kg 08/25/23 13:05 Body Mass Index (BMI) 21.9 08/25/23 13:05 Respiratory Assessment Respiratory Assessment - ballistic expert: Respiratory Tract Infection Hx - ballistic expert Hx Respiratory Tract Infection No 08/25/23 13:05 STOP Sleep Apnea STOP Sleep Apnea - ballistic expert: STOP Sleep Apnea - ballistic expert Hx Hypertension No 08/25/23 13:05 Hx Sleep Apnea No 08/25/23 13:05 CPAP BIPAP Do you snore loudly (louder No 08/25/23 13:05 than talking or can be heard Do you often feel tired/ No 08/25/23 13:05 fatigued/ sleepy during daytime? Has anyone observed you stop No 08/25/23 13:05 breathing during sleep? STOP Results Negative 08/25/23 13:05 QUESTION #5 FULL TEXT : Do you snore loudly (louder than talking or can be heard through closed doors)? 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 - ballistic expert: Tobacco Use History - ballistic expert Tobacco Use Smoking Status Former smoker 08/25/23 09:09 Hx Tobacco Use No 05/11/23 16:23 Years Smoking Packs Smoked per Day Smoking Cessation Date was No - quit smoking greater 08/25/23 09:09 within the last 15 years than 15 years ago Hx Smoking Cessation Date 02/09/79 08/25/23 09:09 Hx Smoking Cessation No 08/25/23 09:09 Counseling Hematologic Medial History Hematologic Hx - ballistic expert: Hematologic Medical Hx - hogshead roller Hx of Blood Transfusion Hx of Transfusion in last 3 Months Date of Last Transfusion (if within last 3 months) Ever experience any problems with transfusion(s)? Specify any problems Hx of Preganancy in last 3 Months Nurse Filling Out Transfusion & Questions: Date: Time: Patient unable to answer at this time (ie. confused, unrespo /Reproduction History /Reproductive History - ballistic expert: /Reproductive Hx- ballistic expert Hx Now No 08/25/23 13:05 Gestational Age (in weeks): EDC: Hx Hx Para Hx Section SAB No 08/25/23 13:05 PFSH Medical History Nausea Constipation Abdominal discomfort Swallowing difficulty Hyperlipidemia Localized skin mass, lump, or swelling Encounter for vitamin deficiency screening Screening for cardiovascular condition Lymphadenopathy, inguinal Nonhealing surgical wound Medication side effects Osteoporosis GERD (gastroesophageal reflux disease) DDD (degenerative disc disease) Wears glasses Arthritis Low iron Easy bruising Poor appetite Epigastric abdominal pain Former smoker Leg cramps Neuropathy Chronic back pain Anemia Occluded PICC line Tachycardia Tobacco dependence in remission Home Medications ?Medication ?Instructions ?Recorded ?Last Taken ?Type ascorbic acid (vitamin C) 500 mg 500 mg PO DAILY vitamin 10/14/20 11/09/20 09:00 History tablet cyanocobalamin (vitamin B-12) 1,000 mcg PO DAILY vitamin 10/14/20 11/09/20 09:00 History 1,000 mcg tablet vitamin E 268 mg (400 unit) capsule 400 unit PO DAILY vitamin 10/14/20 11/09/20 09:00 History cholecalciferol (vitamin D3) 25 25 mcg PO DAILY vitamin #30 tabs 10/29/20 11/09/20 09:00 Rx mcg (1,000 unit) tablet lysine 500 mg capsule 250 mg PO DAILY 07/02/21 Unknown History vegtable laxative PO 06/26/22 Unknown History oxycodone-acetaminophen 5 mg-325 1 tab PO BID PRN 01/26/23 Unknown History mg tablet (Percocet) denosumab 60 mg/mL subcutaneous 60 mg subcut [id number] #1 mL 07/27/23 Unknown Rx syringe (Prolia) omeprazole 40 mg capsule,delayed 40 mg PO DAILY #90 caps 07/27/23 Unknown Rx release trazodone 50 mg tablet 50 mg PO QHS PRN sleep #90 tabs 07/27/23 Unknown Rx ondansetron 4 mg disintegrating 4 mg PO Q6H PRN nausea and 08/14/23 Unknown Rx tablet vomiting #60 tabs Allergy/AdvReac Type Severity Reaction Status Date / Time codeine AdvReac Nausea Verified 08/24/23 10:27 hydrocodone (From Vicodin) AdvReac Nausea Verified 08/24/23 10:27 Surgical History Carpal tunnel syndrome Hx of hysterectomy History of cholecystectomy H/O spinal fusion Social History household members: family Smoking Status: Former smoker alcohol intake: never substance use type: does not use caffeine: Yes seatbelt use: always do you feel safe at home: Yes additional social history: Sumeet- Both on disability Review of Systems (Anesthesia) ROS Narrative System reviewed and no additional complaints, except as documented.
--- NOTE | 2023-08-25 15:00 | IMM_PTH ---
PATIENT: IGLESIA STONER LOC: MS3 U#:[id number] AGE/SX: 62/F ROOM: [facility] RE08/25/[address]: Dr. Rey Schuster MD : 1960 BED: 1 DIS: 08/26/2023 SPEC #: [id number] RECD: 08/26/23 08:35 STATUS: JADEN REQ #: [id number] RAFFI: 08/25/23 15:[address]: Rey Schuster DEPT: IMMUNOHISTOCHEMISTRY RECD BY: Solitario Gutierrez ENTERED: 08/26/23 08:35 SP TYPE: IMMUNO OTHR DR: Dr. Victoriano Marshall MD Tissues: A - Gastric mucous membrane Procedures: H Pylori (initial) PHYSICIAN & INSTITUTION [place] [address] SPECIMEN INFORMATION: Tissue Source: A- Antrum Clinical Info: Dysphagia Specimen Number: [id number] CPT code: 76330 METHODOLOGY: Deparaffinized sections of prefer/formalin-fixed tissue or PAP/DQ stained slides are incubated with monoclonal/polyclonal antibodies/oligonucleotide probes. Localization is made via biotin free immunoperoxidase method. Appropriate controls are performed and reacted as expected. Results on target cell population are indicated in the following table: RESULTS: ANTIBODY / CLONE RESULT Block A H Pylori (polyclonal) negative These tests were developed and their performance characteristics determined by [facility]. They may not have been cleared or approved by the U.S. Food and Drug Administration. The FDA has determined that such clearance or approval is not necessary. The above immunohistochemical/dualISH markers are ordered and reviewed by the Pathologist. INTERPRETATION: A. Antrum, biopsy: Negative for Helicobacter pylori organisms. DIANNA/ 08/27/2023
--- NOTE | 2023-08-25 15:00 | EGD_PTH ---
PATIENT: IGLESIA STONER LOC: MS3 U#:[id number] AGE/SX: 62/F ROOM: [facility] RE08/25/[address]: Dr. Rey Schuster MD : 1960 BED: 1 DIS: 08/26/2023 SPEC #: [id number] RECD: 08/25/23 17:56 STATUS: JADEN HECK #: [id number] RAFFI: 08/25/23 15:[address]: Rey Schuster DEPT: SURGICAL PATHOLOGY RECD BY: Fatimah Arellano ENTERED: 08/26/23 07:46 SP TYPE: EGD BIOPSY OT DR: Dr. Victoriano Marshall MD Tissues: A - Gastric mucous membrane B - Esophagus, NOS Procedures: Surgery Specimen Level IV HEADER OPERATION: EGD with biopsy PRE-OP DIAGNOSIS: Dysphagia TISSUE SUBMITTED: A- Antrum biopsy, B- Mid esophageal plaque biopsy MICROSCOPIC DIAGNOSIS A. Antrum, biopsy: Mild gastritis. See microscopic description and comment. B. Mid esophageal plaque, biopsy: A fragment of squamous epithelium with congestion. [facility] 08/27/2023 COMMENT A. The results of immunohistochemistry for Helicobacter pylori will be reported separately ([id number]). MICROSCOPIC DESCRIPTION Slides are reviewed. A The specimen shows fragments of gastric mucosa with chronic inflammatory cell infiltrates in the lamina propria consisting of lymphocytes and plasma cells, consistent with mild chronic gastritis. GROSS DESCRIPTION A. Received in fixative is one container labeled with the patient's name and designated Antrum biopsy. The specimen consists of one irregular fragment of light angelo soft tissue that measures 0.3 x 0.3 x 0.1 cm. The specimen is totally submitted in one cassette. B. Received in fixative is one container labeled with the patient's name and designated Mid esophageal plaque biopsy. The specimen consists of one irregular fragment of light angelo soft tissue that measures 0.3 x 0.3 x 0.1 cm. The specimen is totally submitted in one cassette. [facility] 08/26/2023 TC:3 CPT:84317v6
--- NOTE | 2023-08-25 15:24 | PCM.POST.ANE ---
Anesthesia: Postop Eval I Current Vital Signs Temperature: 97.3 F Pulse Rate: 92 Blood Pressure: 116/73 Respiratory Rate: 18 Pulse Ox: 100 Oxygen Delivery Method: Room Air Assessment Airway patent: Yes Spontaneous unlabored respirations: Yes Mental status: Awake and Calm nausea: No Vomiting: No Anesthesia Complication: No Fluid Hydration Crystalloid volume administer (ml): 300 Total IV fluid infused: 300 Progress Note Anesthesia document: Postop Eval 1 completed: Yes
--- NOTE | 2023-08-25 15:47 | OP.CCLET_ITS ---
08/25/2023 Victoriano Marshall MD [address] [place] [address] [place] [address] Re : Upper GI endoscopy procedure for Mary Valiente Dear Dr. Marshall This procedure was performed on Friday, August 25, 2023. My impressions and recommendations are as follows: Impressions : - No gross lesions in the duodenal bulb, in the first portion of the duodenum and in the second portion of the duodenum. No specimens collected. - Mucosal changes suspicious for chronic gastritis. Biopsied. - Gastroesophageal flap valve classified as Hill Grade II (fold present, opens with respiration). No specimens collected. - Z-line regular, 40 cm from the incisors. No specimens collected. - Multiple plaques in the middle third of the esophagus. Biopsied. Recommendations : - [facility]. - NPO today. - No aspirin, ibuprofen, naproxen, or other non-steroidal anti-inflammatory drugs for 2 days after biopsy. - Await pathology results. My findings are described in the full procedure note, which is enclosed. If I can be of further assistance, please feel free to contact me at Doctor phone number(s): , Work: . Sincerely, Rey Schuster MD 08/25/2023 3:47:32 PM This report has been signed electronically.
--- NOTE | 2023-08-25 15:47 | OP.EGD_ITS ---
Patient Name: Mary Valiente Procedure Date: 08/25/2023 2:37 PM Date of : 1960 Age: 62 Procedure: Upper GI endoscopy Indications: Dysphagia Providers: Rey Schuster MD Medicines: See the Anesthesia note for documentation of the administered medications Patient Profile: Refer to note in patient chart for documentation of history and physical. Complications: No immediate complications. Estimated blood loss: Minimal. Procedure: Pre-Anesthesia Assessment: - The heart rate, respiratory rate, oxygen saturations, blood pressure, adequacy of pulmonary ventilation, and response to care were monitored throughout the procedure. - The heart rate, respiratory rate, oxygen saturations, blood pressure, adequacy of pulmonary ventilation, and response to care were monitored throughout the procedure. After obtaining informed consent, the endoscope was passed under direct vision. Throughout the procedure, the patient's blood pressure, pulse, and oxygen saturations were monitored continuously. The gastroscope was introduced through the mouth, and advanced to the second part of duodenum. The upper GI endoscopy was accomplished without difficulty. The patient tolerated the procedure fairly well. Scope In: 3:03:08 PM Scope Out: 3:17:40 PM Total Procedure Duration Time 0 hours 14 minutes 32 seconds Findings: No gross lesions were noted in the duodenal bulb, in the first portion of the duodenum and in the second portion of the duodenum. No biopsies or other specimens were collected for this exam. Localized mild inflammation characterized by erythema and linear erosions was found in the gastric antrum. Biopsies were taken with a cold forceps for histology. Biopsies were taken with a cold forceps for Helicobacter pylori testing. Estimated blood loss was minimal. The exam of the stomach was otherwise normal. The gastroesophageal flap valve was visualized endoscopically and classified as Hill Grade II (fold present, opens with respiration). No biopsies or other specimens were collected for this exam. The Z-line was regular and was found 40 cm from the incisors. No biopsies or other specimens were collected for this exam. Multiple 4 to 6 mm plaques were found in the middle third of the esophagus. Biopsies were taken with a cold forceps for histology. Estimated blood loss was minimal. Impression: - No gross lesions in the duodenal bulb, in the first portion of the duodenum and in the second portion of the duodenum. No specimens collected. - Mucosal changes suspicious for chronic gastritis. Biopsied. - Gastroesophageal flap valve classified as Hill Grade II (fold present, opens with respiration). No specimens collected. - Z-line regular, 40 cm from the incisors. No specimens collected. - Multiple plaques in the middle third of the esophagus. Biopsied. Recommendation: - Ad[facility] the [facility] to [facility] for [facility] care. - NPO today. - No aspirin, ibuprofen, naproxen, or other non-steroidal anti-inflammatory drugs for 2 days after biopsy. - Await pathology results. Procedure Code(s): --- Professional --- 07612, Esophagogastroduodenoscopy, flexible, transoral; with biopsy, single or multiple Diagnosis Code(s): --- Professional --- K31.89, Other diseases of stomach and duodenum K22.89, Other specified disease of esophagus R13.10, Dysphagia, unspecified CPT copyright 2021 [employer]. All rights reserved. The codes documented in this report are preliminary and upon crematorium operator review may be revised to meet current compliance requirements. Rey Schuster MD 08/25/2023 3:47:32 PM This report has been signed electronically. Number of Addenda: 0 Note Initiated On: 08/25/2023 2:37 PM
--- NOTE | 2023-08-25 16:19 | SUR.PHASEI ---
PATIENT REPORTS ONE MONTH PLUS OF DYSPHAGIA, SAW PCP IN 08/02, GAVE ME SOME PILLS, STOPPED TAKING THEM BECAUSE YOU'RE SUPPOSED TO TAKE THEM A HALF HOUR BEFORE YOU EAT BUT I COULDN'T EAT [SOLIDS], SO I STOPPED TAKING THEM. ATTEMPTED TO EDUCATE PATIENT. IS ABLE TO SWALLOW PILLS WITH WATER, TOOK SOME TYLENOL WITH WATER IN A.C. WITHOUT ANY DIFFICULTY. STATES SHE CAN SWALLOW LIQUIDS, BUT I PREFER A BURGER AND SOME FRIES. STATES SINCE SHE HAS BEEN HAVING DIFFICULTY SWALLOWING SOLIDS, DECIDED NOT TO DRINK MUCH OF ANYTHING, DID NOT TRY ENSURE OR BOOST BECAUSE I DON'T CARE FOR THEM. IS NOT HERE, PATIENT STATES SHE WILL CALL HIM.
[2023-08-25] MEDS: Lactated Ringers 1,000 ML 125 ML IV (17:04)
--- NOTE | 2023-08-25 17:06 | POSTOPAN2_ITS ---
Anesthesia Postop Eval I Sum Postop Eval Completion status Anesthesia document: Postop Eval 1 completed: Yes Anesthesia Postop Eval I Summary Anesthesia Postop Eval I Summary: Anesthesia Postop Eval I: Assessment Summary Airway patent Yes 08/25/23 15:25 RECYCLE COORDINATOR.[email or web address] Spontaneous unlabored Yes 08/25/23 15:25 RECYCLE COORDINATOR.RAYMOND respirations Mental status Awake,Calm 08/25/23 15:25 RECYCLE COORDINATOR.[email or web address] nausea No 08/25/23 15:25 RECYCLE COORDINATOR.SKOBY Vomiting No 08/25/23 15:25 RECYCLE COORDINATOR.ANTONIOOBStephen Anesthesia Postop Eval I: Fluid Summary Crystalloid volume administer 300 08/25/23 15:25 RECYCLE COORDINATOR.SKOBY (ml) Colloids volume administered ( ml) Blood Product volume administered (ml) Total IV fluid infused 300 08/25/23 15:25 RECYCLE COORDINATOR.ANTONIOOBStephen Anesthesia Postop Eval I: Summary Notes Anesthesia Complication No 08/25/23 15:25 RECYCLE COORDINATOR.RAYMOND Anesthesia Complication Comment: Post-operative progress note Anesthesia: Postop Eval II Evaluation Mental status: Awake and Calm Pain Level: 0 nausea: No Vomiting: No Complications Anesthesia Complication: No
--- NOTE | 2023-08-25 17:06 | PCM.POSTANE2 ---
Anesthesia Postop Eval I Sum Postop Eval Completion status Anesthesia document: Postop Eval 1 completed: Yes Anesthesia Postop Eval I Summary Anesthesia Postop Eval I Summary: Anesthesia Postop Eval I: Assessment Summary Airway patent Yes 08/25/23 15:25 DAUB COLOR [email or web address].[email or web address] Spontaneous unlabored Yes 08/25/23 15:25 DAUB COLOR [email or web address].RAYMOND respirations Mental status Awake,Calm 08/25/23 15:25 DAUB COLOR MIXER.[email or web address] nausea No 08/25/23 15:25 DAUB COLOR MIXER.SKOBY Vomiting No 08/25/23 15:25 DAUB COLOR MIXER.ANTONIOOBStephen Anesthesia Postop Eval I: Fluid Summary Crystalloid volume administer 300 08/25/23 15:25 DAUB COLOR [email or web address].[email or web address] (ml) Colloids volume administered ( ml) Blood Product volume administered (ml) Total IV fluid infused 300 08/25/23 15:25 DAUB COLOR [email or web address].ANTONIOOBStephen Anesthesia Postop Eval I: Summary Notes Anesthesia Complication No 08/25/23 15:25 DAUB COLOR [email or web address].RAYMOND Anesthesia Complication Comment: Post-operative progress note Anesthesia: Postop Eval II Evaluation Mental status: Awake and Calm Pain Level: 0 nausea: No Vomiting: No Complications Anesthesia Complication: No
[2023-08-25] MEDS: Ondansetron 4 MG/2 ML Vial IV (21:29)
[2023-08-25] MEDS: HYDROmorphone 0.5 MG/0.5 ML SYRINGE IV (21:30)
[2023-08-26] MEDS: proMETHazine 25 MG/ML Syringe IM (00:36)
[2023-08-26] MEDS: Morphine 2 MG/ML Syringe IV (00:37)
[2023-08-26] MEDS: Lactated Ringers 1,000 ML 125 ML IV ×2 (00:41→08:44)
[2023-08-26 02:28] VITALS: BP 126/73; PULSE 51; RESP 18; TEMP 36.4; O2SAT 98
--- NOTE | 2023-08-26 08:23 | PCM.PN.SRG ---
Subjective Subjective Patient seen and examined during AM rounds. She reports that she is feeling some discomfort after yesterday's exam. She is awaiting her modified barium swallow study with speech therapy. She has complained to nursing of a headache. Objective Data Objective Data Vital Signs: Vital Signs Temp Pulse Resp BP Pulse Ox O2 Del Method 97.6 F L 51 L 18 126/73 H 98 Room Air 08/26/23 02:28 08/26/23 02:28 08/26/23 02:28 08/26/23 02:28 08/26/23 02:08/26/23 02:28 Oxygen Delivery Method Room Air Weight: 122 lb Body Mass Index (BMI) 23.9 Intake & Output: Intake and Output for Last 24 Hours 08/24/23 08/25/23 08/26/23 23:59 23:59 23:59 Intake Total 1100 / 1100 1032.08 / 1032.08 Balance 1100 / 1100 1032.08 / 1032.08 Lab / Micro Data 08/25/23 09:30 08/25/23 09:30 Labs: Laboratory Results - last 24 hr 08/25/23 09:30: WBC 8.0, RBC 4.45, Hgb 13.6, Hct 40.2, MCV 90.3, MCH 30.6, MCHC 33.8, RDW Std Deviation 42.0, RDW Coeff of Shelly 12.7, Plt Count 404, MPV 8.6, Immature Gran % (Auto) 0.500, Neut % (Auto) 72.9 H, Lymph % (Auto) 14.8 L, Talbot % (Auto) 10.7 H, Eos % (Auto) 0.7, Baso % (Auto) 0.4, Absolute Neuts (auto) 5.8, Absolute Lymphs (auto) 1.19, Nucleated RBC % 0, Sodium 134 L, Potassium 3.9, Chloride 104, Carbon Dioxide 24.0, Anion Gap 6, BUN 21 H, Creatinine 0.83, Estim Creat Clear Calc 49.83, Est GFR (MDRD) Af Amer 89, Est GFR (MDRD) Non-Af 74, BUN/Creatinine Ratio 25.3 H, Glucose 104, Calcium 9.6, Total Bilirubin 0.40, AST 8 L, ALT 13, Alkaline Phosphatase 69, Total Protein 8.2, Albumin 4.3, Globulin 3.9, Albumin/Globulin Ratio 1.1, Lipase 30 Radiography Diagnostic Testing: Radiology Impression Soft Tissue Neck CT 08/25/23 09:21 IMPRESSION: Opacification of the sphenoid sinuses bilaterally. Electronically Signed: Claus Dooley MD at 10:58 EDT , Abdomen/Pelvis CT 08/25/23 09:22 IMPRESSION: Enlarged bilateral inguinal lymph nodes more prominent on the left side. Moderate amount of fecal material is seen in the colon. Scattered sigmoid diverticula. Status post cholecystectomy and hysterectomy. Electronically Signed: Claus Dooley MD at 10:56 EDT , Physical Exam Const oriented x3 and no apparent distress Resp normal respiratory effort GI GI Narrative: Nondistended, soft, minimally tender to palpation of the epigastrium?otherwise unremarkable Assessment & Plan Assessment/Plan (1) Dysphagia: PLAN: Patient is 62-year-old female who is hospital day 2 for workup of reported severe dysphagia and associated weight loss. Yesterday I completed a EGD as it was uncertain whether or not patient had a lingering food bolus impacted in her esophagus, however, this was not substantiated during yesterday's exam and furthermore I did not find any cause to structural explain her dysphagia. A consult was placed to speech therapy and a modified barium swallow study is imminent to evaluate her swallowing function. Patient was held n.p.o. until this determination could be made objectively. Will await those results, but hopefully patient can be discharged home and further work can be conducted as an outpatient. (2) Esophageal obstruction due to food impaction: PLAN: There is concern for possible food impaction by patient's history, however, this went unsubstantiated during EGD yesterday as discussed above. Charges/Coding Visit Charges Inpatient E&M: 63099 Subs Hosp L2
[2023-08-26 08:50] VITALS: BP 123/63; PULSE 56; RESP 16; TEMP 36.9; O2SAT 99
[2023-08-26] MEDS: Pantoprazole Sodium 40 MG in 0.9% Normal Saline (100mL MB+) 100 ML 330 MG IV (10:30)
[2023-08-26] MEDS: 0.9% Saline Lock 10 ML Syringe IV (10:30)
[2023-08-26] MEDS: Acetaminophen 500 MG Tablet PO (10:30)
--- NOTE | 2023-08-26 10:39 | SP.MBSS_ITS ---
Modified Barium Swallow Patient Information Study Date: 08/26/23 Study Time: 09:20 Direct Billable Minutes: 135 Total Minutes procedure & reportin Diagnosis: Dysphagia Referring Physician: Rey Schuster Reason for Referral: This patient is a 62 y/o female who presented to [facility] ED with a 5 day history of worsening difficulty with solid and intermittently liquids. She has had difficulty swallowing for about 1 month. Patient reports a significant weight loss d/t not being able to eat although she reports that she feels hungry. She is only able to eat a 3-6 few bites of food, feels like it is stuck in her throat and then she is unable to completely swallow. She senses pharyngoesophageal retention w/ concern for emesis, necessitating multiple swallows to keep the bolus down. She notes that trying liquids to allow for the food to go down which does not help. She also notes that she will wait hours prior to attempting to eat another bite.? She was evaluated by her PCP who placed her on Omeprazole for GERD, however she has not been able to take this tablet as she is fearful it will get stuck. She lost approx. 4lbs over the last month.? She notes that her daughter was diagnosed with stage IV ovarian cancer in March and is currently undergoing chemotherapy and radiation. A diagnostic EGD was completed in June of [address] Ash and procedure findings were chronic inflammation of the GE junction but no evidence of metaplasia as well as mild gastritis.? Patient denies any family history for neurologic disorders or soft tissue disorders such as scleroderma.? Dr. Schuster performed an emergent EGD 08/25/23 w/ the following findings noted: * No gross lesions in the duodenal bulb, in the first portion of the duodenum and in the second portion of the duodenum. No specimens collected. * Mucosal changes suspicious for chronic gastritis. Biopsied. * Gastroesophageal flap valve classified as Hill Grade II (fold present, opens with? respiration). No specimens collected. * Z-line regular, 40 cm from the incisors. No specimens collected. * Multiple plaques in the middle third of the esophagus. Biopsied. Medical History: Nausea; Constipation; Abdominal discomfort; Swallowing difficulty; Hyperlipidemia; Localized skin mass, lump, or swelling; Encounter for vitamin deficiency screening; Screening for cardiovascular condition; Lymphadenopathy, inguinal; Nonhealing surgical wound; Medication side effects; Osteoporosis; GERD (gastroesophageal reflux disease); DDD (degenerative disc disease); Wears glasses; Arthritis; Low iron; Easy bruising; Poor appetite; Epigastric abdominal pain; Former smoker; Tobacco dependence in remission; Leg cramps; Neuropathy; Chronic back pain; Anemia; Occluded PICC line; Tachycardia Current Diet Ordered: NPO Dentition: Natural Teeth Mental Status: WNL (able to sufficiently follow commands for participation in MBSS) Respiratory Status: Oxygenating on Room Air Penetration-Aspiration Scale Penetration-Aspiration Scale: OBJECTIVE ASSESSMENT OF SWALLOW FUNCTION (QUANTITATIVE ? PER TRIAL): PENETRATION / ASPIRATION SCALE (TY): 1 = does not enter airway 2 = enters airway/above vocal folds/ejected 3 = enters airway/above vocal folds/not ejected 4 = enters airway/contacts vocal folds/ejected 5 = enters airway/contacts vocal folds/not ejected 6 = enters airway/below vocal folds/ejected 7 = enters airway/below vocal folds/not ejected despite effort 8 = enters airway/below vocal folds/no effort VIDEOFLOROSCOPIC SCALE SCORE (TY): Grade I = aspiration of material that has penetrated into the laryngeal vestibule, intact cough reflex Grade II = aspiration < 10 % of the bolus, intact cough reflex Grade III = aspiration of < 10 % of the bolus, reduced cough reflex or aspiration of > 10 % of the bolus, intact cough reflex Grade IV = aspiration of > 10 % of the bolus, reduced cough reflex Penetration-Aspiration Scale Score Thin Liquid via teaspoon: Result: 1= does not enter airway Thin Liquid via teaspoon Trial 2: Result: 1= does not enter airway Thin Liquid via large single sip: cup: Result: 2= enter airway/above vocal folds/ejected Thin Liquid via sequential sips: cup: Result: 1= does not enter airway Thin Liquid via single sip: straw: Result: 1= does not enter airway Pudding via teaspoon: Result: 1= does not enter airway Cookie: Result: 1= does not enter airway Thin Liquid via large single sip: cup Trial 2: Result: 2= enter airway/above vocal folds/ejected Oral Phase Labial Seal: No Labial Escape Tongue Control During Bolus Hold: Posterior escape of less than half of bolus Bolus Preparation/Mastication: Slow prolonged chewing/mashing with complete recollection Bolus Transport/Lingual Motion: Repetitive/disorganized tongue motion Oral Residue: Residue collection on oral structures (piecemeal deglutition pattern w/ oral holding appreciated) Pharyngeal Phase Initiation of Pharyngeal Swallow: Bolus head in pyriforms Soft Palate Elevation: Trace column of contrast/air between soft palate and pharyngeal wall Laryngeal Elevation: Comp. Superior move thyroid cart w/comp. apprx arytenoid cart-epig pet Anterior Hyoid Excursion: Partial anterior movement (minimal anterior movement) Epiglottic Movement: Complete inversion Laryngeal Vestibule Closure at Height of Swallow: Complete; no air/contrast in laryngeal vestibule Pharyngeal Stripping Wave: Present - diminished Pharyngoesophageal Segment Opening: Parital distension and partial duration; parital obstruction of flow Tongue Base Retraction: Narrow column of contrast between tongue base & post. pharyngeal wall Pharyngeal Residue: Collection of residue within or on pharyngeal structures Esophageal Phase Esophageal Clearance: Esophageal retention w/ retrograde flow below pharyngoesophageal seg. Diagnosis/Impression Diagnosis: Mild oropharyngeal dysphagia; esophageal dysfunction evident Impression: Oropharyngeal swallow function is characterized by: * Slow mastication of solids with repetitive lingual movements for AP bolus transportation, requiring multiple swallows (piecemeal deglutition pattern) with postprandial residue retention along the tongue base * Thin liquids spill to the pyriforms prior to swallow initiation? * Consistent penetration of contrast between the velum and posterior pharyngeal wall without extension into the nasopharynx * Adequate thyroid elevation, minimal anterior hyoid movement appreciated with deglutition * Reduced pharyngeal contraction and decreased stripping wave, contributing to mild vallecular and aryepiglottic fold residue retention? * Transient laryngeal vestibule penetration of thin liquids intermittently w/ complete ejection (PAS 2 at worst) * Reduced PES distension and duration with incomplete pharyngeal clearance, contrast retained along the tongue base, vallecula and lining the aryepiglottic folds * Patient independently utilizes piecemeal deglutition/3-5 swallows for all bites and sips consumed anticipatorily d/t perceived pharyngoesophageal retention w/ concern for emesis, necessitating multiple swallows to keep the bolus down. * Decreased esophageal clearance - esophageal retention of pudding and regular textures w/ retrograde bolus flow below the PES Recommendations Diet: Regular Textures and Thin Liquids Compensatory Strategies: Small Bites, Small Sips, Slow Rate (slow rate of intake w/ shorter more frequent attempts at PO intake recommended), Multiple Swallows, Alternate bites/solids and sips/liquids, Sitting upright and Remain sitting upright for 30 minutes after PO intake (GERD precautions) Supervision: Assist as needed Comment: Recommended Referrals: * Further assessment of esophageal motility w/ gastroenterology is recommended. * If no structural deficits are identified, consider neurogastroenterology to assess the brain-gut axis/bidirectional communication between the central nervous system and the gastrointestinal tract, as this patient has significant stressors in her life that could be contributing to impaired esophageal motility and hypervigilance. Need for Skilled Speech Therapy Services: Yes Comment: Skilled ST intervention is recommended for further education re: compensatory swallowing strategies and to initiate oropharyngeal strengthening exercises to target mild deficits identified in tongue base retraction, pharyngeal contraction, anterior hyoid elevation, and PES distention/duration for p haryngeal clearance. Education Completed: 1. Described result of evaluation. and 2. Pt understands evaluation & agrees with goals and treatment plan. Comment: Images were reviewed w/ the patient following MBSS completion to improve understanding of the deficits identified, current recommendations and the need for further GI follow up. Status Active ST Patient: Active Contact Information [facility] Speech Therapy:: Sravani Blackburn M.A., CCC-STRAPPER AND BUFFER Speech-Language Path[place] [address] [phone] [email or web address]
--- NOTE | 2023-08-26 14:47 | CASEMGMT ---
Social Work- SW met with pt to offer emotional support and ensure that pt needs for supports or resources were met. Pt declines needs for resources or supports. Pt reports that she has been 44 years to spouse and that they have a loving, healthy relationship. Pt has 4 grown children and multiple grandchildren, as well as one great grandchild. Pt has a 2 year old dog at home. Pt states she has had multiple back surgeries and spouse is currently debilitated & using a walker d/t needing surgery for his knees. Pt also reports daughter was diagnosed 7 months ago with stage 4 cancer and is currently undergoing treatment. Pt reports she has been feeling overwhelmed and stressed, but is focused on getting better and looks for positives each day with her family. Pt reports good support system and feels that she can speak openly with her . Pt denies hopelessness, lack of pleasure in doing things, or feeling depressed. Pt reports that she does have a lack of energy from not eating and states that she has lost 4 pounds in 4 weeks. Pt reports that she feels better today and did eat supriya food cake for lunch. Pt hammond spoken with family members today for support and reports feeling that [facility] staff has been supportive and helpful. SW will remain available to follow. GRACE Dugan
[2023-08-26 14:57] VITALS: BP 118/67; PULSE 69; RESP 18; TEMP 36.7; O2SAT 97
--- NOTE | 2023-08-26 15:08 | CASEMGMT ---
Addendum entered by Dalia Tiwari 08/26/23 15:47: Green sheet placed on chart with ST rx awaiting signature. Original Note: Noted ST is recommending further ST for pt. BRIDGETTE CM into pt room. Pt lives in [place]. She is agreeable to going to [facility] and requests a rx be given to her and she set this up herself as her will be having surgery and she needs to work around it. Spoke with Ximena GANN, rx printed and this will be signed for pt.
--- NOTE | 2023-08-26 16:24 | DCINST_ITS ---
Discharge Instructions Diet Discharge Diet: No restrictions Activity Discharge Activity: May Shower Follow Up Care Test Results: Test results from this visit will be discussed in further detail at your follow- up appointment, if applicable. Discharge Plan Admission Admit Date/Time: 08/25/23 15:49 Primary Reason for Your Visit: Severe dysphagia Attending Provider: Rey Schuster Primary Care Provider: Victoriano Marshall Instructions Additional Instructions / Restrictions: Please follow up with speech therapy as instructed Discharge Orders/Prescriptions Prescriptions: Continued vegtable laxative PO oxycodone-acetaminophen [Percocet] 5-325 mg tablet 1 tab PO BID PRN Rx Instructions: TAKE 1/2 TAB IN AM omeprazole 40 mg capsule,delayed release(DR/EC) 40 mg PO DAILY Qty: 90 1RF Rx Instructions: Take 30 minutes before breakfast trazodone 50 mg tablet 50 mg PO QHS PRN (Reason: sleep) Qty: 90 1RF cyanocobalamin (vitamin B-12) 1,000 mcg Tablet 1,000 mcg PO DAILY ascorbic acid (vitamin C) 500 mg Tablet 500 mg PO DAILY vitamin E 400 unit Capsule 400 unit PO DAILY cholecalciferol (vitamin D3) 25 mcg (1,000 unit) Tablet 25 mcg PO DAILY Qty: 30 0RF lysine 500 mg Capsule 250 mg PO DAILY Prolia 60 mg/mL syringe 60 mg subcut [id number] Qty: 1 1RF ondansetron 4 mg tablet,disintegrating 4 mg PO Q6H PRN (Reason: nausea and vomiting) Qty: 60 0RF Referrals / Follow Up: Victoriano Marshall MD [Primary Care Provider] - Disposition Disposition (needs filled in before D/C Order can be placed): Home, Self Care
--- NOTE | 2023-08-26 16:45 | PCM.DC.SUM ---
Providers Date of Admission: 08/25/23 Primary Care Physician: Dr. Victoriano Marshall MD Reason For Visit: trouble swallowing Diagnosis Discharge Diagnosis (1) Esophageal obstruction due to food impaction: Status: Acute Code(s): T18.128A - Food in esophagus causing other injury, initial encounter; [id number] - Food entering into or through a natural orifice, initial encounter Plan: I am seeing this patient in conjunction with Dr. Schuster. He will independently evaluate this patient. Patient presents with a 5 day history of difficulty swallowing with solid foods becoming stuck and liquids intermittently being stuck. She notes a history of about 1 month of dysphagia. She notes multiple episodes of dry heaving. She has completed a CT scan of ab/pel and CT scan of soft tissue which were both unremarkable in the ED. Patient was given a dose of glucagon in the ED which resulted in the patient dry heaving. She had another episode of dry heaving while I was in the room examining her. Dr. Schuster will plan to perform an emergent EGD with possible biopsies and disimpaction of possible food. Procedure details, risks and benefits have been explained. Patient verbally understands and agrees with the plan. I have discussed with the patient that Dr. Schuster will determine following the procedure if she will need to be admitted for observation or discharged to home. Patient has had the opportunity to ask and have questions answered. I have contacted charge nurse in [place], [place]. She noted EGD at approximately [address] Schuster to follow himself. Thank you for allowing us to participate in this patient's care. Medications at Discharge Home Medications ascorbic acid (vitamin C) 500 mg tablet 500 mg PO DAILY vitamin 10/14/20 cyanocobalamin (vitamin B-12) 1,000 mcg tablet 1,000 mcg PO DAILY vitamin 10/14/20 vitamin E 268 mg (400 unit) capsule 400 unit PO DAILY vitamin 10/14/20 cholecalciferol (vitamin D3) 25 mcg (1,000 unit) tablet 25 mcg PO DAILY vitamin #30 tabs 10/29/20 lysine 500 mg capsule 250 mg PO DAILY 07/02/21 vegtable laxative PO 06/26/22 oxycodone-acetaminophen 5 mg-325 mg tablet (Percocet) 1 tab PO BID PRN 01/26/23 denosumab 60 mg/mL subcutaneous syringe (Prolia) 60 mg subcut [id number] #1 mL 07/27/23 omeprazole 40 mg capsule,delayed release 40 mg PO DAILY #90 caps 07/27/23 trazodone 50 mg tablet 50 mg PO QHS PRN sleep #90 tabs 07/27/23 ondansetron 4 mg disintegrating tablet 4 mg PO Q6H PRN nausea and vomiting #60 tabs 08/14/23 Hospital Course Procedures EGD and Modified Barium Swallow Summary of Care Provided Hospital Course: Patient is 62-year-old female who presented on 08/25/2023 to [facility] ER with complaints of progressive dysphagia, weight loss, and intolerance of p.o. intake. There is also report of possible persistent food impaction of the esophagus so at this latter history elected to take patient to the endoscopy suite for urgent EGD as I did not want to run the risk of a food bolus causing further secondary harm to the esophagus. The EGD exam ended up unrevealing for any structural cause of patient's dysphagia and was normal apart from some mild to moderate gastritis. Biopsies were taken at the time of the procedure to evaluate this latter issue further. Given the absence of any structural abnormalities consult was placed to speech therapy and patient underwent formal functional testing with a modified barium swallow study. Speech therapy identified some minor issues with patient's swallow but approved her for an unrestricted diet and recommended outpatient follow-up with speech therapy as well as possible gastroenterology. Thus a diet was reinitiated and patient tolerated this without difficulty. She has a number of psychosocial stressors in her life and wished to be discharged immediately so that she could attend to some health concerns for her . I did encourage her to follow through with speech's recommendation for outpatient therapy. A prescription was signed to facilitate this activity. Physical Exam Const alert, oriented x3 and no apparent distress Resp normal respiratory effort GI GI Narrative: Soft, nondistended, nontender to palpation x 4 quadrants Weight / BMI Weight Weight: 122 lb Body Mass Index (BMI) 23.9 ABG / Lab / Microbiology Data 08/25/23 09:30 08/25/23 09:30 D/C Instructions Discharge Diet: No restrictions Meaningful Use Info Meaningful Use Meaningful Use Diagnoses (Choose all that apply): None applicable Ischemic Stroke Statin Dosing Therapy Reference: STATIN DOSE THERAPY REFERENCE: * Patients > 75 years receive moderate or high dose statin therapy. * Patients 75 years or YOUNGER should receive HIGH intensity statin dose unless contraindicated. You will be required to document reason for non-treatment if statin daily dose does not meet guidelines. HIGH DOSE STATIN THERAPY DAILY Atorvastatin > than or = to 40 mg Rosuvastatin > than or = to 20 mg Amlodipine + Atorvastatin > than or = to 2.5/40 mg Ezetimibe + Simvastatin 10/80 mg Simvastatin 80mg Discharge Plan Admission Admit Date/Time: 08/25/23 15:49 Primary Reason for Your Visit: Severe dysphagia Attending Provider: Rey Schuster Primary Care Provider: Victoriano Marshall Instructions Additional Instructions / Restrictions: Please follow up with speech therapy as instructed Discharge Orders/Prescriptions Prescriptions: Continued vegtable laxative PO oxycodone-acetaminophen [Percocet] 5-325 mg tablet 1 tab PO BID PRN Rx Instructions: TAKE 1/2 TAB IN AM omeprazole 40 mg capsule,delayed release(DR/EC) 40 mg PO DAILY Qty: 90 1RF Rx Instructions: Take 30 minutes before breakfast trazodone 50 mg tablet 50 mg PO QHS PRN (Reason: sleep) Qty: 90 1RF cyanocobalamin (vitamin B-12) 1,000 mcg Tablet 1,000 mcg PO DAILY ascorbic acid (vitamin C) 500 mg Tablet 500 mg PO DAILY vitamin E 400 unit Capsule 400 unit PO DAILY cholecalciferol (vitamin D3) 25 mcg (1,000 unit) Tablet 25 mcg PO DAILY Qty: 30 0RF lysine 500 mg Capsule 250 mg PO DAILY Prolia 60 mg/mL syringe 60 mg subcut [id number] Qty: 1 1RF ondansetron 4 mg tablet,disintegrating 4 mg PO Q6H PRN (Reason: nausea and vomiting) Qty: 60 0RF Referrals / Follow Up: Victoriano Marshall MD [Primary Care Provider] - Disposition Disposition (needs filled in before D/C Order can be placed): Home, Self Care Charges/Coding Visit Charges Inpatient E&M: 94425 Disch Hosp
[2023-08-26] MEDS: Lactulose 20 GM/30 ML UDC 10 GM PO (17:13)
== END 2023-08-26 17:51 | disposition home or self-care (01) ==
LOC: ED 12:42 → SDC 13:22 → MS3 16:10
PROVIDERS: Admitting Provider Surgery; Emergency Provider Emergency Medicine; PCP Internal Medicine; Visit Provider Surgery
PROC: 0DJ08ZZ Inspection of Upper Intestinal Tract, Via Natural or Artificial Opening Endoscopic (ICD-10-PCS; CPT 43235; principal; 2023-08-25 14:55)
DX: T18.128A Food in esophagus causing other injury, initial encounter (principal); R13.10 Dysphagia, unspecified; G89.29 Other chronic pain; Z87.891 Personal history of nicotine dependence; Z65.9 Problem related to unspecified psychosocial circumstances; R59.0 Localized enlarged lymph nodes; K21.9 Gastro-esophageal reflux disease without esophagitis; K22.2 Esophageal obstruction; R51.9 Headache, unspecified; K29.70 Gastritis, unspecified, without bleeding; E78.5 Hyperlipidemia, unspecified; W44.F3XA Food entering into or through a natural orifice, initial encounter; Z79.899 Other long term (current) drug therapy; K31.89 Other diseases of stomach and duodenum; K22.89 Other specified disease of esophagus
CPT/HCPCS: 43239; 70491; 74177; 74230; 80053; 83690; 85025; 88305; 88342; 92611; 96361; 96365; 96372; 96375; 99221; 99284; J7030; J7120; Q9967; A4216; G0378; J1610; J2405

== ENCOUNTER 2023-09-27 09:52 | Emergency (ER) | payer MEDICAID, SELFPAY ==
[2023-09-27 09:52] VITALS: BP 125/77; PULSE 55; RESP 19; TEMP 35.7; O2SAT 100
[2023-09-27 09:54] VITALS: BMI 23.2
--- NOTE | 2023-09-27 10:20 | EKG12_ITS ---
Test Reason : Blood Pressure : / mmHG Vent. Rate : 052 BPM Atrial Rate : 052 BPM P-R Int : 104 ms QRS Dur : 082 ms QT Int : 416 ms P-R-T Axes : 036 001 012 degrees QTc Int : 386 ms Sinus bradycardia with short DC Otherwise normal ECG Confirmed by BRENNA PEÑA, JOE ([id number]), primer expeditor and drier JORGE WILL ([id number]) on 10/02/2023 6:45:21 AM Referred By: Confirmed By:HENRY CEJA MD
--- NOTE | 2023-09-27 10:21 | CT_ITS ---
STUDY: CT ABDOMEN AND PELVIS WITH CONTRAST REASON FOR EXAM: Female, 62 years old. Epigastric pain RADIATION DOSAGE (If Supplied By Facility): CTDIvol = ( 15.84 ) mGy, DLP = ( 667.31 ) mGycm TECHNIQUE: Transaxial images were obtained from the dome of the diaphragm to the symphysis pubis without oral contrast. IV 75mL Isovue-370 was administered. Sagittal and coronal images were reconstructed. Individualized dose optimization techniques were used for this CT. COMPARISON: August 25, 2023. FINDINGS: The visualized lung bases are unremarkable. The visualized portions of the heart are within normal limits. Normal liver. There are surgical clips in the gallbladder fossa consistent with a prior cholecystectomy. Normal spleen. Normal pancreas. Normal bilateral adrenal glands. Normal right kidney. Normal left kidney. Normal visualized stomach. Normal small intestine. Normal colon. There is non-visualization of the appendix. There is mild atherosclerotic calcification of the abdominal aorta, without a demonstrated aneurysm. Normal inferior vena cava. Normal retroperitoneum. Normal urinary bladder. There is absence of the uterus consistent with a prior hysterectomy. There is no free fluid in the abdomen or pelvis. There are enlarged inguinal lymph nodes measuring up to 3.0 cm on each side, slightly worsened compared to the prior exam. There is postoperative change of the spine with pedicle screws extending from each level the thoracic spine through the lumbar spine to the sacrum and across the sacroiliac joints. CT/Abdomen/Pelvis W IV Cont ONLY IMPRESSION: Postoperative change. No obstruction. No hydronephrosis. Worsening inguinal lymphadenopathy. Electronically Signed: Sarbjit Kwok MD at 12:05 EDT ,
--- NOTE | 2023-09-27 10:32 | EX.ED.DYSGE1 ---
HPI History of Present Illness Chief Complaint: Abd Pain Narrative Narrative: Patient is a 62-year-old female with past medical history of hyperlipidemia, osteoporosis, GERD, degenerative disc disease who presented to the emergency department with a chief complaint of abdominal pain nausea vomiting. Patient states that she has had this going on for approximately 2 weeks and was admitted to the hospital here and notes that she had a workup including scopes performed. She states that since being discharged she states that nothing has changed and everything is about the same for the past 2 weeks. She states that she can only eat at maximum a handful of food and immediately vomits. Patient notes that her emesis is brown in nature. Patient states that she does have a history of cholecystectomy but denies any other abdominal surgeries. Patient states that she is passing gas and having bowel movements. She states that she is urinating normally for herself without any difficulty. Denies any fevers or chills denies any recent sick contacts. [facility] Medical History Nausea Constipation Abdominal discomfort Swallowing difficulty Hyperlipidemia Localized skin mass, lump, or swelling Encounter for vitamin deficiency screening Screening for cardiovascular condition Lymphadenopathy, inguinal Nonhealing surgical wound Medication side effects Osteoporosis GERD (gastroesophageal reflux disease) DDD (degenerative disc disease) Wears glasses Arthritis Low iron Easy bruising Poor appetite Epigastric abdominal pain Former smoker Leg cramps Neuropathy Chronic back pain Anemia Occluded PICC line Tachycardia Tobacco dependence in remission Home Medications ?Medication ?Instructions ?Recorded ?Last Taken ?Type ascorbic acid (vitamin C) 500 mg 500 mg PO DAILY vitamin 10/14/20 11/09/20 09:00 History tablet cyanocobalamin (vitamin B-12) 1,000 mcg PO DAILY vitamin 10/14/20 11/09/20 09:00 History 1,000 mcg tablet vitamin E 268 mg (400 unit) capsule 400 unit PO DAILY vitamin 10/14/20 11/09/20 09:00 History cholecalciferol (vitamin D3) 25 25 mcg PO DAILY vitamin #30 tabs 10/29/20 11/09/20 09:00 Rx mcg (1,000 unit) tablet lysine 500 mg capsule 250 mg PO DAILY 07/02/21 Unknown History vegtable laxative PO 06/26/22 Unknown History oxycodone-acetaminophen 5 mg-325 1 tab PO BID PRN 01/26/23 Unknown History mg tablet (Percocet) denosumab 60 mg/mL subcutaneous 60 mg subcut [id number] #1 mL 07/27/23 Unknown Rx syringe (Prolia) omeprazole 40 mg capsule,delayed 40 mg PO DAILY #90 caps 07/27/23 Unknown Rx release trazodone 50 mg tablet 50 mg PO QHS PRN sleep #90 tabs 07/27/23 Unknown Rx ondansetron 4 mg disintegrating 4 mg PO Q6H PRN nausea and 08/14/23 Unknown Rx tablet vomiting #60 tabs Allergy/AdvReac Type Severity Reaction Status Date / Time codeine AdvReac Nausea Verified 09/27/23 09:55 hydrocodone (From Vicodin) AdvReac Nausea Verified 09/27/23 09:55 Surgical History Carpal tunnel syndrome Hx of hysterectomy History of cholecystectomy H/O spinal fusion Social History household members: family Smoking Status: Former smoker alcohol intake: never substance use type: does not use caffeine: Yes seatbelt use: always do you feel safe at home: Yes additional social history: Sumeet- Both on disability ROS ROS ED ROS Narrative Constitutional: Denies any fevers, chills, headaches, lightness, dizziness Eyes: Denies any double vision blurry vision changes vision Cardiovascular: Denies chest pain or palpitations Respiratory: Denies coughing wheezing shortness of breath Abdomen: Complains of abdominal pain as noted above as well as nausea vomiting : Denies any pain phonation, hematuria, polyuria, difficulty urinating Neurological: Denies any numbness, weakness, tingling Musculoskeletal: States that she has chronic back pain has had multiple back surgeries Skin: Denies any rashes or lesions EXAM Physical Exam Narrative Exam Narrative: General: Patient was lying in bed rest comfortably did not appear to be in acute distress Head: Atraumatic, normocephalic Eyes: PERRL bilaterally, EOMI bilateral, no conjunctival injection noted Neck: Soft, supple, trach midline Cardiovascular: patient was bradycardic with a regular rhythm no murmurs gallops rubs noted Respiratory: Clear to auscultation bilaterally Abdomen: Soft, nondistended, tenderness to palpation in the epigastric region no rebound or guarding on exam, bowel sounds present x 4 Extremities: +5/5 strength noted in the bilateral upper and lower extremities, no pedal edema exam, radial pulses +2/4 in the bilateral upper extremities Neurological: Patient was following commands knew that she was at [facility] year is 2023. No saddle anesthesia noted sensation grossly intact Skin: Warm, dry, intact, no rashes or lesions noted Const Vital Signs: 09/27/23 09:52 09/27/23 12:00 09/27/23 14:00 Temperature 96.3 F L Temperature Source Temporal Pulse Rate 55 L 48 L 57 L Respiratory Rate 19 H 18 18 Blood Pressure 125/77 H 130/76 H 130/72 H Blood Pressure Mean 93 94 91 Pulse Ox 100 98 97 Oxygen Delivery Method Room Air Room Air Room Air MDM MDM MDM Narrative Medical decision making narrative: Patient is a 62-year-old female who presents to the emergency department with a chief complaint of abdominal pain nausea vomiting. Patient will have workup performed here on the differential diagnosis includes but not limited to small bowel obstruction, pancreatitis, viral gastroenteritis, constipation. Once workup is obtained reviewed she will be reevaluated. Patient be given IV fluids, morphine Zofran. Patient's discharge summary from 08/26/2023 was reviewed and patient was admitted for progressive dysphagia, weight loss and intolerance to oral intake. Patient was ultimately taken by GI for upper EGD and was largely unremarkable there is no structural cause for the patient's dysphagia and there was some mild gastritis noted at which time biopsies were taken. Speech therapy evaluated the patient and she underwent modified barium swallow study which they identified some minor issues with the patient swallowing but approved an unrestricted diet and recommending outpatient follow-up with speech therapy and possible gastroenterology. Patient CBC reviewed and was largely unremarkable no leukocytosis noted white blood count normal at 6.7, hemoglobin was 13.7, plate count normal at 372. Patient sodium was noted 135, potassium normal 3.9, creatinine normal at 0.86. Patient's glucose noted be 108. Patient AST and ALT were 12 and 15 respectively with a normal alk phos of 65. Patient's troponin was normal at 4 with a delta troponin obtained at less than 3. Patient's EKG reviewed and showed sinus bradycardia with a rate of 52 beats per minutes. Patient's lipase normal at 31, urinalysis revealed no evidence of infection. Patient CT abdomen pelvis with IV contrast showed postoperative changes no obstruction no hydronephrosis worsening inguinal lymphadenopathy noted. On reevaluation the patient she states that she is not feeling better I checked a D-dimer and with age-adjusted D-dimer VTE was unlikely. Did discuss results with the patient and she would like to go home at this point time once again this has been going on for several weeks and she states that nothing is changed since her previous admission here to the hospital which was reviewed as noted above. Patient was encouraged to follow-up with gastroenterology and speech therapy as she has not followed up with them yet in the outpatient setting. She was encouraged to follow-up with her primary care physician. She was offered Zofran however she states that she already has this at home. All question concerns were answered she was discharged home in stable condition Lab Data Labs: Laboratory Results - last 24 hr 09/27/23 09/27/23 09/27/23 10:05 10:46 13:55 WBC 6.7 RBC 4.46 Hgb 13.7 Hct 40.7 MCV 91.3 MCH 30.7 MCHC 33.7 RDW Std Deviation 42.7 RDW Coeff of Shelly 12.8 Plt Count 372 MPV 9.0 Immature Gran % (Auto) 0.600 Neut % (Auto) 72.6 H Lymph % (Auto) 16.3 L [place] % (Auto) 9.4 Eos % (Auto) 0.7 Baso % (Auto) 0.4 Absolute Neuts (auto) 4.9 Absolute Lymphs (auto) 1.09 Nucleated RBC % 0 D-Dimer Quant (PE/DVT) 0.55 H* Sodium 135 L Potassium 3.9 Chloride 103 Carbon Dioxide 26.0 Anion Gap 6 BUN 15 Creatinine 0.86 Estim Creat Clear Calc 48.09 Est GFR (MDRD) Af Amer 85 Est GFR (MDRD) Non-Af 70 BUN/Creatinine Ratio 17.3 Glucose 108 H Calcium 9.9 Total Bilirubin 0.30 AST 12 L ALT 15 Alkaline Phosphatase 65 Troponin I High Sens 4 < 3 L Total Protein 7.9 Albumin 4.2 Globulin 3.7 Albumin/Globulin Ratio 1.1 Lipase 31 Urine Color Yellow Urine Clarity Clear Urine pH 6.0 Ur Specific [place] 1.030 Urine Protein 30 H Urine Glucose (UA) Normal Urine Ketones Negative Urine Occult Blood Negative Urine Nitrite Negative Urine Bilirubin Negative Urine Urobilinogen Normal Ur Leukocyte Esterase 25 H Urine RBC 0 SEEN Urine WBC 0-5 SEEN Ur Squamous Epith Cells 0-5 SEEN Urine Bacteria 0 SEEN Urine Mucus 0 SEEN Radiography Diagnostic Testing: Clinical Impression(s) from Imaging Studies Abdomen/Pelvis CT 09/27/23 10:21 IMPRESSION: Postoperative change. No obstruction. No hydronephrosis. Worsening inguinal lymphadenopathy. Electronically Signed: Sarbjit Kwok MD at 12:05 EDT Reading Location ID and State: [address] [place] [address] , Service support , Discharge Plan Triage Chief Complaint: Abd Pain ED Provider: Gregory Patel Dx/Rx/DC Orders Clinical Impression: Abdominal pain, Nausea & vomiting Prescriptions: No Action vegtable laxative PO oxycodone-acetaminophen [Percocet] 5-325 mg tablet 1 tab PO BID PRN Rx Instructions: TAKE 1/2 TAB IN AM omeprazole 40 mg capsule,delayed release(DR/EC) 40 mg PO DAILY Qty: 90 1RF Rx Instructions: Take 30 minutes before breakfast trazodone 50 mg tablet 50 mg PO QHS PRN (Reason: sleep) Qty: 90 1RF cyanocobalamin (vitamin B-12) 1,000 mcg Tablet 1,000 mcg PO DAILY ascorbic acid (vitamin C) 500 mg Tablet 500 mg PO DAILY vitamin E 400 unit Capsule 400 unit PO DAILY cholecalciferol (vitamin D3) 25 mcg (1,000 unit) Tablet 25 mcg PO DAILY Qty: 30 0RF lysine 500 mg Capsule 250 mg PO DAILY Prolia 60 mg/mL syringe 60 mg subcut [id number] Qty: 1 1RF ondansetron 4 mg tablet,disintegrating 4 mg PO Q6H PRN (Reason: nausea and vomiting) Qty: 60 0RF Primary Care Provider: Victoriano Marshall Referrals: Victoriano Marshall MD [Primary Care Provider] - Clark Hook DO [Med Staff - Active Staff] - Activity Restrictions/Additional Instructions: Follow-up your primary care physician outpatient setting. Follow-up with gastroenterology and speech therapy for which she referred to previously. Return with worsening symptoms or concerns. Print Language: Urdu Disposition Disposition: Home, Self Care
[2023-09-27 10:41] LABS: Absolute Lymphocyte Count 1.09 X10^3/uL (0.83-4.51); Absolute Neutrophil Count 4.9 X10^3/uL (2.0-7.7); Basophil# 0.03 X10^3/uL; Basophil% 0.4 % (0-1); Eosinophil# 0.05 X10^3/uL; Eosinophils% 0.7 % (0-5); Hematocrit 40.7 % (37-47); Hemoglobin 13.7 g/dL (12.0-15.0); Lymphocyte # 1.09 X10^3/ul (0.83-4.51); Lymphocyte % 16.3 % (19-41); Mean Corp Hgb Conc 33.7 g/dL (32-36); Mean Corpuscular Hgb 30.7 pg (27.0-32.0); Mean Corpuscular Volume 91.3 fL (81-99); Monocyte# 0.63 X10^3/uL; Monocyte% 9.4 % (0-10); NRBC Flagged by Analyzer 0 % (0-5); Neutrophil # 4.85 X10^3/uL (2.7-7.7); Neutrophil % 72.6 % (47-70); Platelet Count 372 K/mm3 (150-450); RBC Distribution Width CV 12.8 % (11.6-14.6); RBC Distribution Width SD 42.7 fl (35.1-43.9); Red Blood Count 4.46 M/mm3 (4.2-5.4); White Blood Count 6.7 K/mm3 (4.4-11.0)
[2023-09-27] MEDS: 0.9% Normal Saline (1000mL) 1,000 ML 999 ML IV (10:45)
[2023-09-27] MEDS: Morphine 4 MG/ML Syringe IV (10:45)
[2023-09-27] MEDS: Ondansetron 4 MG/2 ML Vial IV (10:46)
[2023-09-27 10:48] LABS: ALB/GLOB Ratio 1.1 RATIO (0.9-2.4); AST(SGOT) 12 U/L (15-37); Alanine Aminotransfer ALT/SGPT 15 U/L (13-56); Albumin, Serum 4.2 g/dL (3.2-5.0); Alkaline Phosphatase 65 U/L (45-117); Anion Gap 6 (5-15); BUN 15 mg/dL (7-18); BUN/Creat Ratio 17.3 RATIO (10-20); Calcium,Total 9.9 mg/dL (8.5-10.1); Chloride 103 mmol/L (98-107); Creatinine, Serum 0.86 mg/dL (0.55-1.02); EST Glomerular Filtration Rate 70 mL/min (>60); Est Glom Filt Rate - Afr Amer 85 mL/min (>60); Estimated Creatinine Clearance 48.09 ml/min; Globulin 3.7 g/dL (2.2-4.2); Glucose 108 mg/dL (74-106); Lipase 31 U/L (13-75); Potassium 3.9 mmol/L (3.5-5.1); Protein, Total 7.9 g/dL (6.4-8.2); Sodium Level 135 mmol/L (136-145); Troponin-I HS 4 pg/mL (3.0-54.0)
[2023-09-27 10:49] LABS: Bacteria 0 SEEN /hpf (None Seen); Mucous, Urine 0 SEEN /hpf (<or=2+); Red Blood Cells-Urine 0 SEEN /hpf (0-5)
[2023-09-27 10:52] LABS: Color, Urine Yellow (Yellow); Glucose, Dipstick Normal (Normal); Ketone-Dipstick Negative (Negative); Leukocyte Esterase-Dipstick 25 /ul (Negative); Nitrite-Dipstick Negative (Negative); Occult Blood-Urine Negative /ul (Negative); Protein-Dipstick 30 mg/dl (Negative); Urine Bilirubin Dipstick Negative (Negative); Urine Clarity Clear (Clear); Urine Urobilinogen Normal (Normal)
[2023-09-27 10:58] LABS: Squamous Epithelial Cells - UA 0-5 SEEN /hpf (5-10); White Blood Cells 0-5 SEEN /hpf (0-5)
[2023-09-27 12:00] VITALS: BP 130/76; PULSE 48; RESP 18; O2SAT 98
[2023-09-27 13:52] LABS: D-Dimer Quantitative (DVT/PE) 0.55 FEU/ug/m (0.27-0.49)
[2023-09-27] MEDS: Acetaminophen 500 MG Tablet 1000 MG PO (13:56)
[2023-09-27] MEDS: Metoclopramide 10 MG/2 ML Vial IV (13:56)
[2023-09-27 14:00] VITALS: BP 130/72; PULSE 57; RESP 18; O2SAT 97
[2023-09-27 14:22] LABS: Troponin-I HS < 3 pg/mL (3.0-54.0)
[2023-09-27 15:38] VITALS: BP 130/72; PULSE 58; RESP 16; TEMP 36.6; O2SAT 97
== END 2023-09-27 15:39 | disposition home or self-care (01) ==
PROVIDERS: Emergency Provider Emergency Medicine; PCP Internal Medicine; Visit Provider Emergency Medicine
DX: R10.9 Unspecified abdominal pain (principal); Z87.891 Personal history of nicotine dependence; E78.5 Hyperlipidemia, unspecified; Z90.49 Acquired absence of other specified parts of digestive tract; K21.9 Gastro-esophageal reflux disease without esophagitis; Z79.899 Other long term (current) drug therapy; Z90.710 Acquired absence of both cervix and uterus; R11.2 Nausea with vomiting, unspecified
CPT/HCPCS: 74177; 80053; 81001; 83690; 84484; 85025; 85379; 87631; 93005; 96361; 96374; 96375; 99283; J7030; Q9967; A4216; J2405

== ENCOUNTER → 2023-10-20 | Outpatient (CLI) | payer MEDICAID, SELFPAY ==
[2023-10-20 15:57] LABS: Bacteria 0 SEEN /hpf (None Seen); Mucous, Urine 0 SEEN /hpf (<or=2+); White Blood Cells 0 SEEN /hpf (0-5)
[2023-10-20 16:23] LABS: Absolute Lymphocyte Count 0.99 X10^3/uL (0.83-4.51); Absolute Neutrophil Count 7.2 X10^3/uL (2.0-7.7); Basophil# 0.07 X10^3/uL; Basophil% 0.8 % (0-1); Eosinophil# 0.04 X10^3/uL; Eosinophils% 0.4 % (0-5); Hematocrit 37.8 % (37-47); Hemoglobin 12.5 g/dL (12.0-15.0); Lymphocyte # 0.99 X10^3/ul (0.83-4.51); Lymphocyte % 10.7 % (19-41); Mean Corp Hgb Conc 33.1 g/dL (32-36); Mean Corpuscular Hgb 30.6 pg (27.0-32.0); Mean Corpuscular Volume 92.6 fL (81-99); Mean Platelet Vol. 8.9 fl (6.2-12.0); Monocyte# 0.92 X10^3/uL; Monocyte% 9.9 % (0-10); NRBC Flagged by Analyzer 0 % (0-5); Neutrophil # 7.22 X10^3/uL (2.7-7.7); Neutrophil % 77.7 % (47-70); Platelet Count 373 K/mm3 (150-450); RBC Distribution Width CV 13.2 % (11.6-14.6); RBC Distribution Width SD 45.8 fl (35.1-43.9); Red Blood Count 4.08 M/mm3 (4.2-5.4); White Blood Count 9.3 K/mm3 (4.4-11.0)
[2023-10-20 16:47] LABS: Color, Urine Yellow (Yellow); Glucose, Dipstick Normal (Normal); Ketone-Dipstick 5 mg/dl (Negative); Leukocyte Esterase-Dipstick 25 /ul (Negative); Nitrite-Dipstick Negative (Negative); Occult Blood-Urine Negative /ul (Negative); Protein-Dipstick 30 mg/dl (Negative); Specific Gravity, Urine 1.025 (1.002-1.030); Urine Bilirubin Dipstick Negative (Negative); Urine Clarity Clear (Clear); Urine Urobilinogen Normal (Normal)
[2023-10-20 16:48] LABS: AST(SGOT) 11 U/L (15-37); Alanine Aminotransfer ALT/SGPT 10 U/L (13-56); Albumin, Serum 3.9 g/dL (3.2-5.0); Alkaline Phosphatase 62 U/L (45-117); Anion Gap 5 (5-15); BUN 14 mg/dL (7-18); BUN/Creat Ratio 20.9 RATIO (10-20); Calcium,Total 9.8 mg/dL (8.5-10.1); Chloride 101 mmol/L (98-107); Cholesterol 214 mg/dL (200); Creatinine, Serum 0.67 mg/dL (0.55-1.02); EST Glomerular Filtration Rate 94 mL/min (>60); Est Glom Filt Rate - Afr Amer 114 mL/min (>60); Globulin 3.9 g/dL (2.2-4.2); Glucose 100 mg/dL (74-106); High Density Lipoprotein 53 mg/dL; LDH 234 U/L (84-246); Potassium 4.3 mmol/L (3.5-5.1); Protein, Total 7.8 g/dL (6.4-8.2); Sodium Level 133 mmol/L (136-145); Triglycerides 112 mg/dL; Very Low Density Lipoprotein 22 mg/dL (5-40)
[2023-10-20 17:07] LABS: Red Blood Cells-Urine 0-5 SEEN /hpf (0-5); Squamous Epithelial Cells - UA 0-5 SEEN /hpf (5-10)
== END | disposition home or self-care (01) ==
LOC: BIMLAB 15:47
PROVIDERS: PCP Internal Medicine; Referring Provider Nurse Practitioner; Visit Provider Nurse Practitioner
DX: E78.5 Hyperlipidemia, unspecified (principal); R59.0 Localized enlarged lymph nodes
CPT/HCPCS: 36415; 80053; 80061; 81001; 83615; 85025

== ENCOUNTER → 2023-10-26 | Outpatient (CLI) | payer MEDICAID, SELFPAY ==
--- NOTE | 2023-10-26 10:46 | US_ITS ---
STUDY: SUPERFICIAL ULTRASOUND - GROIN BILATERAL REASON FOR EXAM: Female, 62 years old. bilateral inguinal lymphadenopathy TECHNIQUE: A superficial ultrasound was performed with real-time and static francis-scale imaging. COMPARISON: CT 09/27/2023 FINDINGS: Multiple longitudinal and transverse ultrasound images of the right inguinal area confirm a 1.6 x 4.2 cm oval hypoechoic mass consistent with lymphadenopathy as seen on CT. Multiple longitudinal and transverse ultrasound images the left inguinal area confirm a 1.5 x 4.4 cm oval hypoechoic mass consistent with lymphadenopathy as seen on CT. Another enlarged lymph node is seen measuring 1.6 x 3.3 cm. US/Ext Non Vasc Limited/Soft Tiss IMPRESSION: Bilateral inguinal lymphadenopathy amenable to percutaneous biopsy. Electronically Signed: Sumeet Murdock MD at 12:34 EDT ,
== END | disposition home or self-care (01) ==
PROVIDERS: PCP Internal Medicine; Referring Provider Nurse Practitioner; Visit Provider Nurse Practitioner
DX: R59.0 Localized enlarged lymph nodes (principal)
CPT/HCPCS: 76882

== ENCOUNTER → 2023-11-20 | Outpatient (CLI) | payer MEDICAID, SELFPAY ==
--- NOTE | 2023-11-20 | IMM_PTH ---
PATIENT: IGLESIA STONER LOC: [facility] U#:[id number] AGE/SX: 63/F ROOM: RE11/20/[address]: Dr. Rey Schuster MD : 1960 BED: DIS: 11/20/2023 SPEC #: [id number] RECD: 11/24/23 09:37 STATUS: JADEN REQ #: [id number] RAFFI: 11/20/23 00:[address]: Rey Schuster DEPT: IMMUNOHISTOCHEMISTRY RECD BY: Solitraio Gutierrez ENTERED: 11/24/23 09:38 SP TYPE: IMMUNO OTHR DR: Dr. Victoriano Marshall MD Tissues: LYMPH NODE BIOPSY Procedures: BCL-2 (add) BCL-6 (add) CD10 (add) CD20 (add) CD23 (add) CD3 (add) CD43 (add) CD45 (add) CD5 (add) CD79A (add) CK8 (add) CYCLIN (add) KI-67 (add) Pankeratin (initial) Surgery Specimen Level IV PHYSICIAN & [address] [address] SPECIMEN INFORMATION: Tissue Source: Left inguinal lymph node Clinical Info: Left inguinal lymph node Specimen Number: [id number] CPT code: 60877,[id number] METHODOLOGY: Deparaffinized sections of prefer/formalin-fixed tissue or PAP/DQ stained slides are incubated with monoclonal/polyclonal antibodies/oligonucleotide probes. Localization is made via biotin free immunoperoxidase method. Appropriate controls are performed and reacted as expected. Results on target cell population are indicated in the following table: RESULTS: ANTIBODY / CLONE RESULT AE1-3 (AE1/AE3/PCK26) negative CK8 ([id number]) negative CD3 (PS1) negative CD5 (SP10) negative CD20 (L26) positive CD43 (L60) negative CD45 (RP2/18) positive CD79a (11E3) positive CD10 (56C6) positive CD23 (1B12) positive, aberrant staining BCL-2 (bcl-2/100/D5) positive BCL-6 (ID440L/A8) positive Cyclin D1/BCL-1 (SP4) negative Ki-67 (30-9) positive, moderate These tests were developed and their performance characteristics determined by [facility]. They may not have been cleared or approved by the U.S. Food and Drug Administration. The FDA has determined that such clearance or approval is not necessary. The above immunohistochemical/dualISH markers are ordered and reviewed by the Pathologist. INTERPRETATION: Left inguinal lymph node, needle core biopsy: Non-Hodgkin's B-cell lymphoma, follicular lymphoma, Grade1. This case was reviewed with Dr. Chester who concurs with the above diagnosis. 11/25/2023
--- NOTE | 2023-11-20 | LYMN_PTH ---
PATIENT: IGLESIA STONER LOC: [facility] U#:[id number] AGE/SX: 63/F ROOM: RE11/20/[address]: Dr. Rey Schuster MD : 1960 BED: DIS: 11/20/2023 SPEC #: [id number] RECD: 11/20/23 11:49 STATUS: JADEN REAzalia #: [id number] RAFFI: 11/20/23 00:[address]: Rey Schuster DEPT: SURGICAL PATHOLOGY RECD BY: Malgorzata Sim ENTERED: 11/20/23 13:33 SP TYPE: LYMPH NODE OTHR DR: Dr. Victoriano Marshall MD Tissues: LYMPH NODE BIOPSY Procedures: Surgery Specimen Level IV HEADER OPERATION: Core needle biopsy of left inguinal lymph node PRE-OP DIAGNOSIS: Left inguinal lymph node TISSUE SUBMITTED: Left inguinal lymph node MICROSCOPIC DIAGNOSIS Left inguinal lymph node, core biopsy: Non-Hodgkin B-cell lymphoma, follicular lymphoma, Grade 1. See comment. 11/25/2023 COMMENT Immunohistochemistry ([id number]) supports the above diagnosis. Molecular studies on the tumor can be performed if clinically indicated. Please notify the laboratory if it is needed. Case has been reviewed in consultation with Dr. Chester who concurs with the above diagnosis. IDC:AM MICROSCOPIC DESCRIPTION Slides are reviewed. GROSS DESCRIPTION Received in fixative is one container labeled with the patient's name and designated Left inguinal lymph node. The specimen consists of multiple fragments of angelo-yellow soft tissue measuring in aggregate 1.0 x 1.0 x 0.1cm. The entire specimen is submitted in one cassette. CHRISTIANNE 11/20/2023 TC: 0 CPT:37963
== END | disposition home or self-care (01) ==
LOC: LABSPEC 12:24
PROVIDERS: PCP Internal Medicine; Referring Provider Surgery; Visit Provider Surgery
DX: C85.15 Unspecified B-cell lymphoma, lymph nodes of inguinal region and lower limb (principal)
CPT/HCPCS: 88305; 88341; 88342

== ENCOUNTER → 2023-11-25 | Outpatient (CLI) | payer MEDICAID, SELFPAY ==
[2023-11-25 13:33] LABS: Amphetamine Urine VISTA NEGATIVE (<1000 ng/mL); Barbiturate Urine VISTA NEGATIVE (< 200 ng/mL); Benzodiazepine Urine VISTA NEGATIVE (< 200 ng/mL); Cocaine Urine VISTA NEGATIVE (< 300 ng/mL); Ecstacy Urine VISTA POSITIVE (< 500 ng/mL); Methadone Urine VISTA NEGATIVE (< 300 ng/mL); PCP Urine VISTA NEGATIVE (< 25 ng/mL); THC Urine VISTA POSITIVE (< 50 ng/mL); Vista UDS pH Range 5
== END | disposition home or self-care (01) ==
LOC: LAB 13:01
PROVIDERS: PCP Internal Medicine; Referring Provider Anesthesiology Pain Medicine; Visit Provider Anesthesiology Pain Medicine
DX: F11.20 Opioid dependence, uncomplicated (principal)
CPT/HCPCS: 80307

== ENCOUNTER 2023-12-18 09:36 | Emergency (ER) | payer MEDICAID, SELFPAY ==
[2023-12-18 09:36] VITALS: BP 111/73; PULSE 82; RESP 16; TEMP 36.7; O2SAT 100
[2023-12-18 10:25] LABS: Absolute Lymphocyte Count 0.42 X10^3/uL (0.83-4.51); Absolute Neutrophil Count 4.7 X10^3/uL (2.0-7.7); Basophil# 0.04 X10^3/uL; Basophil% 0.7 % (0-1); Eosinophil# 0.03 X10^3/uL; Eosinophils% 0.5 % (0-5); Hematocrit 35.4 % (37-47); Lymphocyte # 0.42 X10^3/ul (0.83-4.51); Lymphocyte % 7.1 % (19-41); Mean Corp Hgb Conc 33.9 g/dL (32-36); Mean Corpuscular Hgb 31.1 pg (27.0-32.0); Mean Corpuscular Volume 91.7 fL (81-99); Mean Platelet Vol. 9.4 fl (6.2-12.0); Monocyte# 0.68 X10^3/uL; Monocyte% 11.5 % (0-10); NRBC Flagged by Analyzer 0 % (0-5); Neutrophil # 4.68 X10^3/uL (2.7-7.7); Neutrophil % 79.4 % (47-70); POSITIVE DIFFERENTIAL YES; Platelet Count 330 K/mm3 (150-450); RBC Distribution Width CV 12.9 % (11.6-14.6); RBC Distribution Width SD 43.3 fl (35.1-43.9); Red Blood Count 3.86 M/mm3 (4.2-5.4); White Blood Count 5.9 K/mm3 (4.4-11.0)
[2023-12-18] MEDS: Ondansetron 4 MG/2 ML Vial IV (10:25)
[2023-12-18] MEDS: Morphine 2 MG/ML Syringe IV (10:25)
[2023-12-18 10:56] LABS: ALB/GLOB Ratio 1.3 RATIO (0.9-2.4); AST(SGOT) 16 U/L (15-37); Alanine Aminotransfer ALT/SGPT 15 U/L (13-56); Albumin, Serum 3.9 g/dL (3.2-5.0); Alkaline Phosphatase 58 U/L (45-117); Anion Gap 6 (5-15); BUN 11 mg/dL (7-18); BUN/Creat Ratio 15.7 RATIO (10-20); Chloride 106 mmol/L (98-107); EST Glomerular Filtration Rate 90 mL/min (>60); Est Glom Filt Rate - Afr Amer 109 mL/min (>60); Globulin 2.9 g/dL (2.2-4.2); Glucose 107 mg/dL (74-106); Lipase 22 U/L (13-75); Potassium 4.1 mmol/L (3.5-5.1); Protein, Total 6.8 g/dL (6.4-8.2); Sodium Level 133 mmol/L (136-145); Troponin-I HS 4 pg/mL (3.0-54.0)
[2023-12-18 11:36] VITALS: BP 115/76; PULSE 89; RESP 16; O2SAT 98
[2023-12-18 12:13] LABS: Bacteria 0 SEEN /hpf (None Seen); Mucous, Urine 0 SEEN /hpf (<or=2+); Squamous Epithelial Cells - UA 0 SEEN /hpf (5-10)
[2023-12-18 12:16] LABS: Color, Urine Yellow (Yellow); Glucose, Dipstick Normal (Normal); Ketone-Dipstick 15 mg/dl (Negative); Leukocyte Esterase-Dipstick Negative /ul (Negative); Nitrite-Dipstick Negative (Negative); Occult Blood-Urine Negative /ul (Negative); Protein-Dipstick 15 mg/dl (Negative); Specific Gravity, Urine 1.015 (1.002-1.030); Urine Bilirubin Dipstick Negative (Negative); Urine Clarity Clear (Clear); Urine Urobilinogen Normal (Normal)
[2023-12-18 12:29] LABS: Red Blood Cells-Urine 0-5 SEEN /hpf (0-5); Transitional Epithelial - Ur 0 SEEN /hpf (0-5); White Blood Cells 0-5 SEEN /hpf (0-5)
[2023-12-18 13:00] VITALS: PULSE 67; O2SAT 98
[2023-12-18 13:10] VITALS: BMI 24.4
== END 2023-12-18 13:52 | disposition home or self-care (01) ==
PROVIDERS: Emergency Provider Surgery; PCP Internal Medicine; Visit Provider Surgery
DX: U07.1 COVID-19 (principal); C82.00 Follicular lymphoma grade I, unspecified site; R59.1 Generalized enlarged lymph nodes; Z87.891 Personal history of nicotine dependence; R10.9 Unspecified abdominal pain; E78.5 Hyperlipidemia, unspecified; K21.9 Gastro-esophageal reflux disease without esophagitis
CPT/HCPCS: 70450; 71045; 74177; 80053; 81001; 83690; 84484; 85025; 87631; 93005; 96374; 96375; 99284; Q9967; A4216; J2405

== ENCOUNTER 2023-12-29 11:00 | Outpatient (RCR) | payer MEDICAID, SELFPAY | END 2024-01-09 23:59 | LOC: NS 11:00 | PROVIDERS: PCP Internal Medicine; Visit Provider Internal Medicine Medical Oncology | DX: Z71.3 Dietary counseling and surveillance (principal); C85.10 Unspecified B-cell lymphoma, unspecified site | CPT/HCPCS: 97802 ==

== ENCOUNTER 2024-01-04 10:30 | Day surgery (SDC) | payer MEDICAID, SELFPAY ==
[2024-01-04] VITALS (9 sets, daily range): BP systolic 89–117; BP diastolic 60–99; PULSE 66–84; RESP 12–18; TEMP 36.4–36.8; O2SAT 96–100; BMI 22.1
--- NOTE | 2024-01-04 11:05 | PRE.ANES_ITS ---
ASA Classification* ASA Classification ASA Classification: 2 Assessment & Plan Anesthesia* Anesthesia Assessment Anesthesia Assessment: Discussed sedation and/or anesthesia options, risks, benefits, and alternatives with patient/parents/legal guardian/POA. Questions invited. The patient/parents/legal guardian/POA seems to understand and agrees to proceed with anesthesia plan. Reviewed the physical assessment, medical history, allergy history and patient home medications list prior to surgery/procedure/anesthetic and documented any changes. Performed airway and anesthesia risk assessments. Anesthesia Type Anesthesia Type: MAC Anesthesia Focused Assessment* Airway Assessment Mouth opens: >3 cm Mallampati Score: II Focused Labs Anesthesia Preop lab: CBC WBC 6.4 K/mm3 (4.4-11.0) 01/04/24 08:20 RBC 4.01 M/mm3 (4.2-5.4) L 01/04/24 08:20 Hgb 12.6 g/dL (12.0-15.0) 01/04/24 08:20 Hct 37.6 % (37-47) 01/04/24 08:20 Plt Count 394 K/mm3 (150-450) 01/04/24 08:20 CHEMISTRY Potassium 4.1 mmol/L (3.5-5.1) 01/04/24 08:20 Sodium 136 mmol/L (136-145) 01/04/24 08:20 Magnesium 2.0 mg/dL (1.6-2.6) 01/04/24 08:20 Phosphorus 3.3 mg/dL (2.5-4.9) 01/04/24 08:20 BUN 13 mg/dL (7-18) 01/04/24 08:20 Creatinine 0.64 mg/dL (0.55-1.02) 01/04/24 08:20 Glucose 103 mg/dL (74-106) 01/04/24 08:20 POC Glucose 89 mg/dL (70-110) 01/08/16 15:10 TSH 0.90 uIU/mL (0.358-3.74) 11/06/20 15:15 COAG PT 13.9 SECONDS (11.7-14.9) 10/18/20 11:15 Pre-Assessment Diagnosis/Proposed Procedure Planned Operative Procedure(s): (R) Insertion, Vascular Port right poss left Anesthesia History Anesthesia History - patternmaker all around: Anesthesia History - patternmaker all around Hx Hospitalization No 12/31/23 09:59 Any Problems With Anesthesia Yes: ponv 12/31/23 09:59 Cholinesterase deficiency No 12/31/23 09:59 You/Your Family Experience No 12/31/23 09:59 fever (hyperthermia) with Relationship Recent Exposure to Contagious No 12/29/23 09:51 Disease Does patient have nerve No 12/31/23 09:59 stimulator Patient instructed to have device shut off --Does patient have Pacemaker or ICD? When Was Last Pacemaker Check QUESTION #4 FULL TEXT: You/Your Family Experience fever (hyperthermia) with Anesthesia Last Oral Intake Last Oral intake: Last Oral Intake NPO since Meds taken in AM with sips of water? Meds patient instructed to take am of surgery PONV PONV - patternmaker all around: PONV - patternmaker all around Female Yes 12/31/23 09:59 HX of Motion Sickness No 12/31/23 09:59 HX of N/V After Surgery Yes 12/31/23 09:59 Non-Smoker Yes 12/31/23 09:59 Duration of Surgery greater No 12/31/23 09:59 than 60 minutes Number of Risk Factors 3 12/31/23 09:59 PONV Score Moderate Risk 12/31/23 09:59 Height & Weight Height & Weight: Anesthesia: Height & Weight Height 4 ft 10 in 01/04/24 08:36 Respiratory Assessment Respiratory Assessment - patternmaker all around: Respiratory Tract Infection Hx - patternmaker all around Hx Respiratory Tract Infection No 12/31/23 09:59 STOP Sleep Apnea STOP Sleep Apnea - patternmaker all around: STOP Sleep Apnea - patternmaker all around Hx Hypertension No 12/31/23 09:59 Hx Sleep Apnea No 12/31/23 09:59 CPAP BIPAP Do you snore loudly (louder No 12/31/23 09:59 than talking or can be heard Do you often feel tired/ No 12/31/23 09:59 fatigued/ sleepy during daytime? Has anyone observed you stop No 12/31/23 09:59 breathing during sleep? STOP Results Negative 12/31/23 09:59 QUESTION #5 FULL TEXT : Do you snore loudly (louder than talking or can be heard through closed doors)? 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 Specify any problems Hx of Preganancy in last 3 N/A 12/31/23 09:59 Months Nurse Filling Out Transfusion NBUCHER 12/31/23 09:59 & Questions: Date: 12/31/23 12/31/23 09:59 Time: 10:02 12/31/23 09:59 Patient unable to answer at this time (ie. confused, unrespo /Reproduction History /Reproductive History - patternmaker all around: /Reproductive Hx- patternmaker all around Hx Now Gestational Age (in weeks): EDC: Hx Hx Para Hx Section SAB No 12/31/23 09:59 Active Medications Active Medications: Current Medications Generic Name Dose Route Start Last Admin Trade Name Freq PRN Reason Stop Dose Admin Cefazolin Sodium 2 gm/ N/A 20 mls @ 400 mls/hr 01/04/24 12:35 IV 01/04/24 12:37 PREOP ONE PFSH Medical History Encounter for education MRSA (methicillin resistant staph aureus) culture positive Cancer Depression Osteoarthritis High cholesterol Chronic pain B-cell non-Hodgkin lymphoma Anxiety and depression Nausea Constipation Abdominal discomfort Swallowing difficulty Hyperlipidemia Localized skin mass, lump, or swelling Encounter for vitamin deficiency screening Screening for cardiovascular condition Lymphadenopathy, inguinal Nonhealing surgical wound Medication side effects Osteoporosis GERD (gastroesophageal reflux disease) DDD (degenerative disc disease) Wears glasses Arthritis Low iron Easy bruising Poor appetite Epigastric abdominal pain Former smoker Leg cramps Neuropathy Chronic back pain Anemia Occluded PICC line Tachycardia Tobacco dependence in remission Home Medications ?Medication ?Instructions ?Recorded ?Last Taken ?Type ascorbic acid (vitamin C) 500 mg 500 mg PO DAILY vitamin 10/14/20 11/09/20 09:00 History tablet cyanocobalamin (vitamin B-12) 1,000 mcg PO DAILY vitamin 10/14/20 11/09/20 09:00 History 1,000 mcg tablet vitamin E 268 mg (400 unit) capsule 400 unit PO DAILY vitamin 10/14/20 11/09/20 09:00 History lysine 500 mg capsule 250 mg PO DAILY 07/02/21 Unknown History oxycodone-acetaminophen 5 mg-325 1 tab PO BID PRN pain 01/26/23 Unknown History mg tablet (Percocet) denosumab 60 mg/mL subcutaneous 60 mg subcut [id number] #1 mL 07/27/23 Unknown Rx syringe (Prolia) trazodone 50 mg tablet 50 mg PO QHS PRN sleep #90 tabs 07/27/23 Unknown Rx ondansetron 4 mg disintegrating 4 mg PO Q6H PRN nausea and 08/14/23 Unknown Rx tablet vomiting #60 tabs cholecalciferol (vitamin D3) 25 50 mcg PO DAILY vitamin 12/11/23 Unknown History mcg (1,000 unit) tablet docusate sodium 100 mg capsule 100 mg PO QDAY 12/11/23 Unknown History acyclovir 400 mg tablet 400 mg PO BID #60 tabs 01/04/24 Unknown Rx allopurinol 300 mg tablet 300 mg PO QDAY #30 tabs 01/04/24 Unknown Rx lidocaine-prilocaine 2.5 %-2.5 % 1 applic topical ONCE PRN port 01/04/24 Unknown Rx topical cream access 30 days #30 grams sulfamethoxazole 800 1 tab PO .COMPLEX #30 tabs 01/04/24 Unknown Rx mg-trimethoprim 160 mg tablet (Bactrim DS) Allergy/AdvReac Type Severity Reaction Status Date / Time codeine AdvReac Nausea Verified 01/04/24 08:35 hydrocodone (From Vicodin) AdvReac Nausea Verified 01/04/24 08:35 Surgical History History of colonoscopy History of esophagogastroduodenoscopy (EGD) History of carpal tunnel surgery of left wrist History of back surgery Carpal tunnel syndrome Hx of hysterectomy History of cholecystectomy H/O spinal fusion Social History household members: family Smoking Status: Former smoker alcohol intake: never substance use type: marijuana caffeine: Yes seatbelt use: always do you feel safe at home: Yes additional social history: Sumeet- Both on disability Review of Systems (Anesthesia) ROS Narrative System reviewed and no additional complaints, except as documented.
--- NOTE | 2024-01-04 12:30 | HP.PCM_ITS ---
History and Physical Date of Admission: 01/04/24 Date of Service: 12/30/23 MR#: [id number] Acct: [id number] Name: IGLESIA STONER Rep #: [id number] : 1960 Provider: Dr. Rey Schuster MD Age/Sex: 63/F Location: [facility] Status: Signed Intake Vital Signs 12/29/2407:30 12/28/2408:51 12/28/2413:29 12/30/2407:28 Height 4 ft 10 in 4 ft 10 in 4 ft 10 in 4 ft 10 in Weight: 106 lb 5 oz 106 lb BMI 22.2 22.1 BP 106/68 115/97 H Blood Pressure Location Lt brachial Rt brachial Position Sitting Sitting Respiration 18 18 Pulse 69 65 Pulse Source Monitor Monitor Temp 98.5 F 97.5 F L Temp Source Temporal Pulse Oximetry (%) 99 97 Oxygen Delivery Method room air room air Intake Visit Reasons: PORT PLACEMENT Chief Complaint: port placement Accompanied by: Daughter Allergies codeine Adverse Reaction (Verified 12/30/23 08:29) Nauseahydrocodone (From Vicodin) Adverse Reaction (Verified 12/30/23 08:29) Nausea Medications ?Medication ?Instructions ?Recorded ?Confirmed ?Type ascorbic acid (vitamin C) 500 mg 500 mg PO DAILY vitamin 10/14/20 12/30/23 History tablet cyanocobalamin (vitamin B-12) 1,000 mcg PO DAILY vitamin 10/14/20 12/30/23 History 1,000 mcg tablet vitamin E 268 mg (400 unit) capsule 400 unit PO DAILY vitamin 10/14/20 12/30/23 History lysine 500 mg capsule 250 mg PO DAILY 07/02/21 12/30/23 History oxycodone-acetaminophen 5 mg-325 1 tab PO BID PRN 01/26/23 12/30/23 History mg tablet (Percocet) denosumab 60 mg/mL subcutaneous 60 mg subcut [id number] #1 mL 07/27/23 12/30/23 Rx syringe (Prolia) trazodone 50 mg tablet 50 mg PO QHS PRN sleep #90 tabs 07/27/23 12/30/23 Rx ondansetron 4 mg disintegrating 4 mg PO Q6H PRN nausea and 08/14/23 12/30/23 Rx tablet vomiting #60 tabs cholecalciferol (vitamin D3) 25 50 mcg PO DAILY vitamin 12/11/23 12/30/23 History mcg (1,000 unit) tablet docusate sodium 100 mg capsule 100 mg PO QDAY 12/11/23 12/30/23 History chlorhexidine gluconate 4 % 1 applic topical DAILY 5 days #118 12/30/23 12/30/23 Rx topical liquid (Hibiclens) mL mupirocin 2 % topical ointment 1 applic topical BID 5 days #15 12/30/23 12/30/23 Rx grams PFSH Medical History Chronic pain B-cell non-Hodgkin lymphoma Anxiety and depression Nausea Constipation Abdominal discomfort Swallowing difficulty Hyperlipidemia Localized skin mass, lump, or swelling Encounter for vitamin deficiency screening Screening for cardiovascular condition Lymphadenopathy, inguinal Nonhealing surgical wound Medication side effects Osteoporosis GERD (gastroesophageal reflux disease) DDD (degenerative disc disease) Wears glasses Arthritis Low iron Easy bruising Poor appetite Epigastric abdominal pain Former smoker Leg cramps Neuropathy Chronic back pain Anemia Occluded PICC line Tachycardia Tobacco dependence in remission Surgical History Carpal tunnel syndrome Hx of hysterectomy History of cholecystectomy H/O spinal fusion Social History household members: family Smoking Status: Former smoker alcohol intake: never substance use type: marijuana caffeine: Yes seatbelt use: always do you feel safe at home: Yes additional social history: Sumeet- Both on disability HPI HPI HPI: Patient is a 63-year-old female who is known to me for a recent evaluation of progressive inguinal lymphadenopathy that culminated in a ultrasound-guided core needle biopsy of left inguinal adenopathy on 11/20/2023. Pathology is consistent with non-Hodgkin's lymphoma and patient was referred to oncology. She met with oncology on both 12/12/2023 and 12/29/2023 with an interval PET/CT performed. Patient presents today with her daughter for consideration of port placement. Patient shares she is due to return to oncology for chemo education on 01/04/2024. Patient has no prior history of central line placement, but her daughter states that she did require a left-sided PICC line for administration of long-term antibiotic therapy related to a infected (staph infection) hardware situation. Patient has no pacemaker or intracardiac defibrillator. Patient has no renal dysfunction. Mrs. Stoner is not currently prescribed blood thinners. She shares that her biopsy site became quite bruised post procedurally but is now significantly improved and does not concern her. ROS General General: Yes weight change (loss); No appetite, fatigue, colon cancer, breast cancer or weakness HEENT HEENT: No difficulty swallowing, eye injury, eye surgery, swollen glands or hoarseness Endo Endocrine: No thyroid disease, diabetes mellitus, thyroid cancer, Hair loss, heat intolerance or cold intolerance Skin Skin: No rash or changing moles Musc Musculoskeletal: Yes back problems and arthritis; No rheumatoid arthritis, gout or joint pain Cardio Cardiovascular: No murmur, pacemaker, heart disease, atrial fibrillation, high blood pressure, heart attack, heart stent, palpitations, shortness of breat with exertion or chest pain Psych Psychiatric: No depression, anxiety or hearing voices Resp Respiratory: No shortness of breath, No sleep apnea, No cough, No COPD, No asthma, No emphysema and No wheezing Gastro Gastrointestinal: Yes abdominal pain, Yes nausea or vomiting, No diarrhea, No constipation, No blood in stool, No acid reflux, No hemorrhoids, No ulcers, No gallbladder problem and No black,tarry stools Pepe Hematologic: No blood thinners, No blood disorders, No bleeding, No anemia and No blood clots Neuro Neurologic: No numbness, No tingling and No weakness Exam Const General: cooperative and comfortable Chest Other: No signs of rash, inflammation, or infection. There are no scars bilaterally. Assessment and Plan Assessment and Plan (1) Follicular lymphoma grade I: Status: Acute Qualifiers: Lymphoma site: multiple regions Qualified Code(s): C82.08 - Follicular lymphoma grade I, lymph nodes of multiple sites Comment: Follicular Lymphoma grade 1, Stage IV Lymph nodes on both sides of diaphragm and bone. PET/CT 12/15/2023 reviewed, shows some hypermetabolic activity bilateral axillae, retrosternal regions, mediastinum, bilateral hilar area, left hypopharyngeal area, bilateral retroperitoneal area, pelvis and inguinal area and left ishium bone/ Discussed follicular lymphoma, Pain in ishium bone, non specific abdominal pain and pelvic pain may be indications for therapy. Pt agrees to proceed. Patient with the above diagnosis and evidence of disease burden who requires initiation of treatment via a Port-A-Cath. I held a discussion with patient reg arding expectations for line placement and she requested specific positioning but otherwise expressed understanding. A date has already been set tentatively for 01/04/2024. Given patient's history of staph infection and concern for delayed reporting times I would like to proceed with empiric treatment for staph colonization rather than swab her nares today. Plan: ? Proceed with empiric treatment for staph colonization ? Ultrasound?guided and fluoroscopic?guided right versus left Port-A-Cath placement due 01/04/2024 I have examined the patient and the H&P has been reviewed. There are no clinical changes since date of exam. Patient has met with oncology and received education around initiating chemotherapy. She was marked for where her bra line would lie. Consents were confirmed. Will now proceed to the operating room for right possible left Port-A-Cath placement with ultrasound and fluoroscopic guidance.
[2024-01-04] MEDS: Cefazolin 2 GM in Syringe IV (12:48)
[2024-01-04] MEDS: Bupiv/Epi 0.25% 30 ML Vial (13:14)
--- NOTE | 2024-01-04 13:58 | PCM.POST.ANE ---
Anesthesia: Postop Eval I Current Vital Signs Temperature: 98 F Pulse Rate: 74 Blood Pressure: 103/60 Respiratory Rate: 18 Pulse Ox: 97 Oxygen Delivery Method: Room Air Assessment Airway patent: Yes Spontaneous unlabored respirations: Yes Mental status: Awake and Calm nausea: No Vomiting: No Anesthesia Complication: No Fluid Hydration Crystalloid volume administer (ml): 10 Total IV fluid infused: 10 Progress Note Anesthesia document: Postop Eval 1 completed: Yes
--- NOTE | 2024-01-04 14:15 | RAD_ITS ---
HISTORY: Status post line placement. TECHNIQUE: XR Chest 1 View. COMPARISON: 12/18/2023. FINDINGS: LINES/TUBES: Right chest wall port with catheter tip at the level of the upper right atrium. Extensive spinal fixation hardware again seen. CARDIOMEDIASTINAL BORDERS: Stable with right hilar and infrahilar lymphadenopathy. LUNGS: No new focus of consolidation. PLEURA: No pleural effusion or pneumothorax. RAD/CXR for Line Placement IMPRESSION: Satisfactory appearance of right chest wall port. Electronically Signed: Margoth Amaro MD at 15:25 EST ,
--- NOTE | 2024-01-04 15:36 | PCM.OPRPT ---
Operative Report (Standard) Operative Information Surgery/Procedure Performed: Ultrasound and fluoroscopic guided right internal jugular Port-A-Cath placement Surgeon: Rey Schuster Date of Procedure: 01/04/24 Procedure Start Time: 13:06 Procedure Stop Time: 13:48 Pre-Operative Diagnosis: Follicular grade lymphoma Post-Operative Diagnosis: Same Select all DRAINS/GRAFTS/IMPLANTS that apply: Prosthetic device (PowerPort ISP MRI implantable port) Prosthetic device details: [id number] Type of Anesthesia: IV Sedation and Local Estimated Blood Loss: 5 Specimen collected: No Description of surgery: After appropriate identification in the preoperative holding area the patient was brought to the operating room. There she was administered preoperative antibiotics and positioned supine on the operating room table. Once sedation was begun, the upper chest and lower cervical region were prepped and draped in usual sterile fashion. A formal timeout was then conducted to confirm both the patient and procedure. Ultrasound was used to localize the right internal jugular vein. Then a wheal of quarter percent bupivacaine with epinephrine was raised superficially in this location and the vein was accessed with a single attempt under direct ultrasound guidance using a Seldinger technique to place a guidewire. The position of the guidewire was confirmed with fluoroscopy. Next the position of the port pocket was determined and again local anesthetic was used to anesthetize the area of both the pocket and the tunneling cephalad (a total volume of 17 mL of local anesthetic was used for this procedure). A transverse incision 3 cm in width was made down through the subcutaneous tissue. Selective electrocautery was used to obtain hemostasis. Then with blunt dissection the port pocket was developed. The catheter was connected to the tunneler and was tunneled up to the position of the guidewire. Here the dilator and peel-away sheath were placed over the guidewire and the guidewire was removed. Position was again confirmed with fluoroscopy. The catheter length was estimated based on the external placement of a hemostat to approximate the level of the primitivo and the cavoatrial junction. The catheter was then fed into the sheath and slowly the sheath was peeled away as the catheter was inserted fully into the neck. Back in the chest the excess catheter was trimmed and the port was connected to the catheter. The port was tied into the pocket using 3-0 Vicryl. Function was then tested using sterile saline on a Haines needle. It was locked with 2.5 mL of heparinized saline (concentration 50U/5mL). The port pocket was closed with a deep dermal stitch using a running 3-0 Vicryl followed by 4-0 Monocryl subcuticular stitch. The 1 cm incision in the neck was closed with a single interrupted subcuticular stitch using 4-0 Monocryl. Dermabond was applied as a dressing. Patient was then aroused from the sedation and taken to PACU for ongoing recovery were a portable chest x-ray was obtained to confirm port positioning and exclude any pneumothorax. Surgical Findings: ? Widely patent but easily collapsible right internal jugular vein with good Doppler flow ? 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
--- NOTE | 2024-01-04 15:36 | EX.PCM.DISCH ---
Discharge Instructions Diet Discharge Diet: No restrictions Activity Discharge Activity: May Shower May shower in (days): 1 Ice area for (Minutes): 20 Additional Activity Instructions:: Limit the activity by the nearest upper extremity for 48 hours postop Dressing / Incision Call your doctor if your incision/area has: Increased Pain/ Swelling, Increased Redness, Foul Smelling Discharge and Swelling at the incision site Call your doctor if you observe: Fever of 101 or Higher Remove Dressing in: do not remove dressing (Dermabond (surgical glue) expected to dissolve spontaneously within 7 to 10 days postop using regular showering) Cleanse incision/area with: Soap & Water Follow Up Care Test Results: Test results from this visit will be discussed in further detail at your follow-up appointment, if applicable. Discharge Plan Admission Primary Reason for Your Visit: Right port placement Attending Provider: Rey Schuster Primary Care Provider: Victoriano Marshall Instructions Print Language: Dominican Discharge Orders/Prescriptions Prescriptions: Continued oxycodone-acetaminophen [Percocet] 5-325 mg tablet 1 tab PO BID PRN (Reason: pain) Rx Instructions: TAKE 1/2 TAB IN AM trazodone 50 mg tablet 50 mg PO QHS PRN (Reason: sleep) Qty: 90 1RF cholecalciferol (vitamin D3) 25 mcg (1,000 unit) tablet 50 mcg PO DAILY docusate sodium 100 mg capsule 100 mg PO QDAY lidocaine-prilocaine 2.5-2.5 % cream 1 applic topical ONCE PRN (Reason: port access) 30 Days Qty: 30 2RF acyclovir 400 mg tablet 400 mg PO BID Qty: 60 2RF sulfamethoxazole-trimethoprim [Bactrim DS] 800-160 mg tablet 1 tab PO .COMPLEX Qty: 30 2RF Rx Instructions: 1 TAB orally daily on Mondays, Wednesdays and Fridays allopurinol 300 mg tablet 300 mg PO QDAY Qty: 30 0RF cyanocobalamin (vitamin B-12) 1,000 mcg Tablet 1,000 mcg PO DAILY ascorbic acid (vitamin C) 500 mg Tablet 500 mg PO DAILY vitamin E 400 unit Capsule 400 unit PO DAILY lysine 500 mg Capsule 250 mg PO DAILY Prolia 60 mg/mL syringe 60 mg subcut [id number] Qty: 1 1RF ondansetron 4 mg tablet,disintegrating 4 mg PO Q6H PRN (Reason: nausea and vomiting) Qty: 60 0RF Referrals / Follow Up: Victoriano Marshall MD [Primary Care Provider] - Disposition Disposition (needs filled in before D/C Order can be placed): Home, Self Care
--- NOTE | 2024-01-04 15:58 | POSTOPAN2_ITS ---
Anesthesia Postop Eval I Sum Postop Eval Completion status Anesthesia document: Postop Eval 1 completed: Yes Anesthesia Postop Eval I Summary Anesthesia Postop Eval I Summary: Anesthesia Postop Eval I: Assessment Summary Airway patent Yes 01/04/24 13:59 [email or web address] Spontaneous unlabored Yes 01/04/24 13:59 [email or web address] respirations Mental status Awake,Calm 01/04/24 13:59 [email or web address] nausea No 01/04/24 13:59 [email or web address] Vomiting No 01/04/24 13:59 [email or web address] Anesthesia Postop Eval I: Fluid Summary Crystalloid volume administer 10 01/04/24 13:59 [email or web address] (ml) Colloids volume administered ( ml) Blood Product volume administered (ml) Total IV fluid infused 10 01/04/24 13:59 [email or web address] Anesthesia Postop Eval I: Summary Notes Anesthesia Complication No 01/04/24 13:59 [email or web address] Anesthesia Complication Comment: Post-operative progress note Anesthesia: Postop Eval II Evaluation Mental status: Awake Pain Level: 0 nausea: No Vomiting: No
--- NOTE | 2024-01-04 15:58 | PCM.POSTANE2 ---
Anesthesia Postop Eval I Sum Postop Eval Completion status Anesthesia document: Postop Eval 1 completed: Yes Anesthesia Postop Eval I Summary Anesthesia Postop Eval I Summary: Anesthesia Postop Eval I: Assessment Summary Airway patent Yes 01/04/24 13:59 [email or web address] Spontaneous unlabored Yes 01/04/24 13:59 [email or web address] respirations Mental status Awake,Calm 01/04/24 13:59 [email or web address] nausea No 01/04/24 13:59 [email or web address] Vomiting No 01/04/24 13:59 [email or web address] Anesthesia Postop Eval I: Fluid Summary Crystalloid volume administer 10 01/04/24 13:59 [email or web address] (ml) Colloids volume administered ( ml) Blood Product volume administered (ml) Total IV fluid infused 10 01/04/24 13:59 [email or web address] Anesthesia Postop Eval I: Summary Notes Anesthesia Complication No 01/04/24 13:59 [email or web address] Anesthesia Complication Comment: Post-operative progress note Anesthesia: Postop Eval II Evaluation Mental status: Awake Pain Level: 0 nausea: No Vomiting: No
== END 2024-01-04 15:57 | disposition home or self-care (01) ==
LOC: SDC 10:31 → AC 10:32
PROVIDERS: PCP Internal Medicine; Referring Provider Surgery; Visit Provider Surgery
PROC: (CPT 36561; principal; 2024-01-04 12:20)
DX: Z45.2 Encounter for adjustment and management of vascular access device (principal); C82.08 Follicular lymphoma grade I, lymph nodes of multiple sites; Z87.891 Personal history of nicotine dependence
CPT/HCPCS: 36561; 00532; 36415; 71045; 77001; 80053; 83615; 83735; 84100; 84550; 85025; 85652; 86703; C1894; J7120; A4216; C1788; J2405

== ENCOUNTER 2024-03-30 09:12 | Emergency (ER) | payer MEDICAID, SELFPAY ==
[2024-03-30] VITALS (7 sets, daily range): BP systolic 103–132; BP diastolic 66–84; PULSE 62–78; RESP 15–30; TEMP 36.4; O2SAT 98–100; BMI 21.1
[2024-03-30] MEDS: Ondansetron 4 MG/2 ML Vial IV ×2 (10:42→14:54)
[2024-03-30] MEDS: Morphine 4 MG/ML Syringe IV ×2 (10:42→11:43)
[2024-03-30] MEDS: 0.9% Normal Saline (500mL Bag) 500 ML 1000 ML IV (10:42)
[2024-03-30 11:04] LABS: Absolute Lymphocyte Count 0.89 X10^3/uL (0.83-4.51); Absolute Neutrophil Count 1.8 X10^3/uL (2.0-7.7); Basophil# 0.03 X10^3/uL; Basophil% 0.9 % (0-1); Hematocrit 32.9 % (37-47); Hemoglobin 11.6 g/dL (12.0-15.0); Lymphocyte # 0.89 X10^3/ul (0.83-4.51); Lymphocyte % 25.9 % (19-41); Mean Corp Hgb Conc 35.3 g/dL (32-36); Mean Corpuscular Hgb 32.8 pg (27.0-32.0); Mean Corpuscular Volume 92.9 fL (81-99); Mean Platelet Vol. 8.2 fl (6.2-12.0); Monocyte# 0.64 X10^3/uL; Monocyte% 18.6 % (0-10); NRBC Flagged by Analyzer 0 % (0-5); Neutrophil # 1.84 X10^3/uL (2.7-7.7); Neutrophil % 53.4 % (47-70); Platelet Count 186 K/mm3 (150-450); RBC Distribution Width CV 14.5 % (11.6-14.6); RBC Distribution Width SD 49.6 fl (35.1-43.9); Red Blood Count 3.54 M/mm3 (4.2-5.4); White Blood Count 3.4 K/mm3 (4.4-11.0)
[2024-03-30 11:24] LABS: ALB/GLOB Ratio 1.1 RATIO (0.9-2.4); AST(SGOT) 30 U/L (15-37); Alanine Aminotransfer ALT/SGPT 43 U/L (13-56); Albumin, Serum 3.3 g/dL (3.2-5.0); Alkaline Phosphatase 72 U/L (45-117); Anion Gap 8 (5-15); BUN 13 mg/dL (7-18); Calcium,Total 9.5 mg/dL (8.5-10.1); Chloride 104 mmol/L (98-107); Creatinine, Serum 0.65 mg/dL (0.55-1.02); EST Glomerular Filtration Rate 98 mL/min (>60); Est Glom Filt Rate - Afr Amer 118 mL/min (>60); Estimated Creatinine Clearance 62.81 ml/min; Globulin 3.1 g/dL (2.2-4.2); Glucose 103 mg/dL (74-106); Lipase 38 U/L (73-393); Potassium 3.5 mmol/L (3.5-5.1); Protein, Total 6.4 g/dL (6.4-8.2); Sodium Level 135 mmol/L (136-145)
--- NOTE | 2024-03-30 11:31 | EX.ED.DYSGE1 ---
HPI History of Present Illness Chief Complaint: Nausea/Vomiting Detail of Chief Complaint: Nausea vomiting upper abdominal pain Informant: patient and family Onset/Context/Timing Onset: Days Context: Sudden Onset Timing: Continuous (Pain is constant nausea and vomiting is intermittent) Quality: Nausea and vomiting past several days Location: GI Current Severity: Mild Maximum Severity: Moderate Worsened by: Attempt to eat or drink anything Relieved by: nothing for either Associated Symptoms Associated Symptoms: Denies black or maroon stool. Denies hematemesis or coffee-ground emesis. Narrative Narrative: Patient is 63-year-old woman. She is under the care of Dr. Paul for non-Hodgkin's lymphoma. Biopsy of left groin node November 2023 revealed a follicular lymphoma grade 1. She had a PET scan/CT scan December 14, 2024 which revealed hypermetabolic activity bilateral axilla, retrosternal region, mediastinum, bilateral hilar area, left hypopharyngeal region, bilateral retroperitoneal, as well as pelvis and inguinal area bilaterally. Patient was diagnosed with stage IV disease with bone involvement. She had a port placed. Patient asked if the nurses could draw her blood work from the port and IV fluids through the port. Patient presents because of not feeling well. Generalized weakness. Lack of appetite. When she attempts to eat she has a significant nausea and has had episodes of vomiting. She denies coffee-ground emesis or hematemesis. She also complains of fatigue which is chronic after reviewing prior notes. She denies chest pain. She denies shortness of breath. She denies leg pain, swelling or discoloration. She does report upper abdominal pain. She is status postcholecystectomy. Symptoms started shortly after she received chemo approximately 2 weeks ago. She receives chemo every 28 days per patient and family member. Prior similar symptoms: Yes Recent Illness/Hospitalization: No PFSH PFS Medical History Oral candidiasis Encounter for education MRSA (methicillin resistant staph aureus) culture positive Cancer Depression Osteoarthritis High cholesterol Chronic pain B-cell non-Hodgkin lymphoma Anxiety and depression Nausea Constipation Abdominal discomfort Swallowing difficulty Hyperlipidemia Localized skin mass, lump, or swelling Encounter for vitamin deficiency screening Screening for cardiovascular condition Lymphadenopathy, inguinal Nonhealing surgical wound Medication side effects Osteoporosis GERD (gastroesophageal reflux disease) DDD (degenerative disc disease) Wears glasses Arthritis Low iron Easy bruising Poor appetite Epigastric abdominal pain Former smoker Leg cramps Neuropathy Chronic back pain Anemia Occluded PICC line Tachycardia Tobacco dependence in remission Home Medications ?Medication ?Instructions ?Recorded ?Last Taken ?Type ascorbic acid (vitamin C) 500 mg 500 mg PO DAILY vitamin 10/14/20 01/03/24 History tablet cyanocobalamin (vitamin B-12) 1,000 mcg PO DAILY vitamin 10/14/20 01/03/24 History 1,000 mcg tablet vitamin E 268 mg (400 unit) capsule 400 unit PO DAILY vitamin 10/14/20 01/03/24 History lysine 500 mg capsule 250 mg PO DAILY 07/02/21 01/03/24 History oxycodone-acetaminophen 5 mg-325 1 tab PO BID PRN pain 01/26/23 01/04/24 History mg tablet (Percocet) denosumab 60 mg/mL subcutaneous 60 mg subcut [id number] #1 mL 07/27/23 Unknown Rx syringe (Prolia) cholecalciferol (vitamin D3) 25 50 mcg PO DAILY vitamin 12/11/23 01/03/24 History mcg (1,000 unit) tablet docusate sodium 100 mg capsule 100 mg PO QDAY 12/11/23 01/03/24 History lidocaine-prilocaine 2.5 %-2.5 % 1 applic topical ONCE PRN port 01/04/24 Unknown Rx topical cream access 30 days #30 grams sulfamethoxazole 800 1 tab PO .COMPLEX #30 tabs 01/04/24 Unknown Rx mg-trimethoprim 160 mg tablet (Bactrim DS) trazodone 50 mg tablet 50 mg PO QHS PRN sleep #90 tabs 01/25/24 Unknown Rx duloxetine 30 mg capsule,delayed 30 mg PO QHS #90 caps 02/15/24 Unknown Rx release ondansetron 4 mg disintegrating 4 mg PO Q6H PRN nausea and 02/15/24 Unknown Rx tablet vomiting #60 tabs acyclovir 400 mg tablet 400 mg PO BID #60 tabs 03/08/24 Unknown Rx nystatin 100,000 unit/mL oral 5 ml PO TID #473 mL 03/08/24 Unknown Rx suspension Allergy/AdvReac Type Severity Reaction Status Date / Time codeine AdvReac Nausea Verified 03/30/24 09:16 hydrocodone (From Vicodin) AdvReac Nausea Verified 03/30/24 09:16 Surgical History History of colonoscopy History of esophagogastroduodenoscopy (EGD) History of carpal tunnel surgery of left wrist History of back surgery Carpal tunnel syndrome Hx of hysterectomy History of cholecystectomy H/O spinal fusion Social History household members: family Smoking Status: Former smoker alcohol intake: never substance use type: marijuana caffeine: Yes seatbelt use: always do you feel safe at home: Yes additional social history: Sumeet- Both on disability ROS ROS ED Constitutional Constitutional ED: Reports sweats and weight loss; Denies chills, fever(s) or subjective Eyes Eyes: Denies blurry vision, change in vision or diplopia ENT ENT ED: Denies ear pain, rhinorrhea or sore throat Cardiovascular Cardiovascular: Reports racing heartbeat; Denies chest pain or palpitations Respiratory/Chest Respiratory/Chest: Denies cough, dyspnea or dyspnea on exertion Gastrointestinal Gastrointestinal: Reports abdominal pain, nausea and vomiting; Denies constipation, diarrhea or melena Genitourinary Genitourinary ED: Denies hematuria or urinary frequency Musculoskeletal Musculoskeletal: Denies back pain Integumentary Denies rash Neurologic Neurologic: Reports weakness; Denies headache(s) Hematologic/Lymphatic Hematologic/Lymphatic: Reports systems reviewed and no addt'l complaints, except as documented EXAM Physical Exam Const Vital Signs: 03/30/24 09:13 03/30/24 10:13 03/30/24 11:00 Temperature 97.5 F L Temperature Source Temporal Pulse Rate 78 63 69 Respiratory Rate 15 20 H 30 H Blood Pressure 132/84 H 108/69 129/79 H Blood Pressure Mean 100 82 95 Pulse Ox 98 100 100 Oxygen Delivery Method Room Air Room Air Room Air 03/30/24 12:00 03/30/24 13:00 03/30/24 14:00 Temperature Temperature Source Pulse Rate 62 64 72 Respiratory Rate 20 H 18 18 Blood Pressure 106/70 108/71 103/66 Blood Pressure Mean 82 83 78 Pulse Ox 100 98 99 Oxygen Delivery Method Room Air Room Air Room Air Positive well developed and cachectic Constitutional Narrative: Patient appears ill. General Appearance ED: well developed, cachectic and pallor Nutritional Appearance: cachectic HEENT Reports dry mucous membranes HEENT Narrative: Head is atraumatic normocephalic. Ears normal. Nares patent. Mouth ED: Yes dry mucous membranes Mouth: dry mucous membranes Eyes PERRL General Eye ED: Yes pale conjunctiva; Negative for scleral icterus Neck no lymphadenopathy, supple and no JVD Chest Wall inspection of chest normal and palpation of chest normal Resp normal respiratory effort and clear to auscultation bilaterally Cardio regular rate, regular rhythm, S1 normal heart sound, S2 normal heart sound and no murmurs GI no masses; Negative for normal to inspection, nondistended, normoactive bowel sounds, non-tender, non-distended or hepatosplenomegaly GI Narrative: There is tympany to percussion. Bowel sounds are diminished. There is tenderness in the right and left upper quadrant. Negative clinical Orellana sign. She has bilateral inguinal lymphadenopathy and tenderness. Inspection: abdominal distention Auscultation: hypoactive bowel sounds Palpation: soft and tender LUQ and RUQ; Negative for guarding, splenomegaly or rebound tenderness present Back/Spine no CVA tenderness Extremity normal to inspection General Extremety ED: Negative for edema or tenderness General Extremity: Negative for edema Neuro oriented x3 and CN's II-XII intact bilaterally Sensorium / Orientation: alert Skin no rashes or lesions noted, no wounds and No skin turgor normal General Skin Exam: pallor MDM MDM MDM Narrative Medical decision making narrative: Patient appears pale. Will obtain CBC to assess H&H as well as white count. Competence of metabolic panel to assess liver enzymes for possible metastasis, electrolyte panel to assess renal function, CO2 anion gap and electrolytes Lab Data Attestation: I reviewed the patient's lab results. Lab results narrative: CBC reveals white count of 3.4. Platelet count is normal at 186. H&H is 11.6 and 32.9. Differential is unremarkable. Comprehensive metabolic panel is unremarkable. Patient's sodium is slightly decreased at 135. Lipase is normal. Labs: Laboratory Results - last 24 hr 03/30/24 10:50 WBC 3.4 L RBC 3.54 L Hgb 11.6 L Hct 32.9 L MCV 92.9 MCH 32.8 H MCHC 35.3 RDW Std Deviation 49.6 H RDW Coeff of Shelly 14.5 Plt Count 186 MPV 8.2 Immature Gran % (Auto) 1.200 H Neut % (Auto) 53.4 Lymph % (Auto) 25.9 Bartholomew % (Auto) 18.6 H Eos % (Auto) 0.0 Baso % (Auto) 0.9 Absolute Neuts (auto) 1.8 L Absolute Lymphs (auto) 0.89 Nucleated RBC % 0 Sodium 135 L Potassium 3.5 Chloride 104 Carbon Dioxide 23.0 Anion Gap 8 BUN 13 Creatinine 0.65 Estim Creat Clear Calc 62.81 Est GFR (MDRD) Af Amer 118 Est GFR (MDRD) Non-Af 98 BUN/Creatinine Ratio 20.0 Glucose 103 Calcium 9.5 Total Bilirubin 0.30 AST 30 ALT 43 Alkaline Phosphatase 72 Total Protein 6.4 Albumin 3.3 Globulin 3.1 Albumin/Globulin Ratio 1.1 Lipase 38 L Patient's H&H is slightly lower than March 08. H&H at that time was 12.6 and 35.8. Electrolyte panel is unchanged. Radiography Diagnostic Testing: Clinical Impression(s) from Imaging Studies Abdomen/Pelvis CT 03/30/24 12:35 IMPRESSION: The previously seen abnormal appearing lymph nodes in both groins have cleared. The remainder of the examination is unchanged. The previously seen right hilar nodule is not seen at this time. One or more dose reduction techniques were used (e.g., Automated exposure control, adjustment of the mA and/or kV according to patient size, use of iterative reconstruction technique). Reading Location: [facility]- CT of the abdomen pelvis with IV contrast reveals no obvious abnormality per my review. Liver is normal. Spleen is normal. Kidneys are normal. There is no air-fluid levels or evidence of obstruction. There is no pneumoperitoneum. Awaiting formal read by radiologist. Treatment and Re-Evaluation :: Nurse informing that she ordered another EKG. I informed her that the patient has metastatic lymphoma and probably the cause of her pain. There is no indication for repeat EKG. If it was done I will cosign. I was unaware of this until I reviewed the hematology note. Comments:: Nurse note indicates patient would like something for nausea. 4 mg of Zofran was ordered at 1442. Patient was informed of her CAT scan results. Plan is to discharge to home with prescription for antiemetic. She states she has antiemetics at home. She is seen by Dr. Cardoso. Since she is in pain management I will not prescribe any opiate analgesic. Discharge Plan Triage Chief Complaint: Nausea/Vomiting ED Provider: Cody Turner Dx/Rx/DC Orders Clinical Impression: Nausea & vomiting, Acute bilateral upper abdominal pain, [place] stage IV diffuse non-Hodgkin's lymphoma Instructions: ED Vomiting (Adult) Prescriptions: No Action oxycodone-acetaminophen [Percocet] 5-325 mg tablet 1 tab PO BID PRN (Reason: pain) Rx Instructions: TAKE 1/2 TAB IN AM cholecalciferol (vitamin D3) 25 mcg (1,000 unit) tablet 50 mcg PO DAILY docusate sodium 100 mg capsule 100 mg PO QDAY duloxetine 30 mg capsule,delayed release(DR/EC) 30 mg PO QHS Qty: 90 1RF lidocaine-prilocaine 2.5-2.5 % cream 1 applic topical ONCE PRN (Reason: port access) 30 Days Qty: 30 2RF sulfamethoxazole-trimethoprim [Bactrim DS] 800-160 mg tablet 1 tab PO .COMPLEX Qty: 30 2RF Rx Instructions: 1 TAB orally daily on Mondays, Wednesdays and Fridays nystatin 100,000 unit/mL suspension 5 ml PO TID Qty: 473 1RF Rx Instructions: swish and swallow acyclovir 400 mg tablet 400 mg PO BID Qty: 60 2RF cyanocobalamin (vitamin B-12) 1,000 mcg Tablet 1,000 mcg PO DAILY ascorbic acid (vitamin C) 500 mg Tablet 500 mg PO DAILY vitamin E 400 unit Capsule 400 unit PO DAILY lysine 500 mg Capsule 250 mg PO DAILY Prolia 60 mg/mL syringe 60 mg subcut [id number] Qty: 1 1RF trazodone 50 mg tablet 50 mg PO QHS PRN (Reason: sleep) Qty: 90 3RF ondansetron 4 mg tablet,disintegrating 4 mg PO Q6H PRN (Reason: nausea and vomiting) Qty: 60 0RF Primary Care Provider: Victoriano Marshall Referrals: Victoriano Marshall MD [Primary Care Provider] - As Needed Print Language: Persian Disposition Disposition: Home, Self Care
--- NOTE | 2024-03-30 12:35 | CT_ITS ---
PROCEDURE: ABDOMEN/PELVIS W IV CONT ONLY REASON FOR EXAM: History of lymphoma. Recent chemotherapy. Nausea and vomiting. TECHNIQUE: Abdomen and pelvis CT before and following intravenous contrast. No oral contrast. IV CONTRAST: 100 cc of Isovue-300. COMPARISON: Comparison is made with prior study dated December 18, 2023. FINDINGS: Lung bases: Stable minimal linear markings at the right lung base suggestive of atelectasis. Liver: Mild degree of central intrahepatic biliary ductal dilatation. Gallbladder: Surgically absent. Spleen: Unremarkable. Pancreas: Unremarkable. Adrenals: Unremarkable. Kidneys: Unremarkable. Bladder: Unremarkable. Reproductive Organs: Prior hysterectomy. Adnexal regions are unremarkable. Bowel: Unremarkable. Appendix: Normal. Lymph nodes: No suspicious lymph node enlargement. Vasculature: Mild diffuse atherosclerotic calcifications are noted. Peritoneum / Retroperitoneum: There is 1.7 cm 2.3 cm x 3 cm linear hypodensity along the lateral aspect of the inferior vena cava. This may represent a necrotic lymph node. This is essentially unchanged. The previously seen enlarged lymph nodes in both groins have resolved. Bones: The patient is status post multilevel fusion with lucio and intrapedicular screw fixation of the lower thoracic and lumbar spine. There is also evidence of fixation of the proximal sacrum. CT/Abdomen/Pelvis W IV Cont ONLY IMPRESSION: The previously seen abnormal appearing lymph nodes in both groins have cleared. The remainder of the examination is unchanged. The previously seen right hilar nodule is not seen at this time. One or more dose reduction techniques were used (e.g., Automated exposure contr ol, adjustment of the mA and/or kV according to patient size, use of iterative reconstruction technique). Reading Location: [facility]-
[2024-03-30] MEDS: Morphine 4 MG/ML Syringe 3 MG IV (14:04)
== END 2024-03-30 15:27 | disposition home or self-care (01) ==
PROVIDERS: Emergency Provider Emergency Medicine; PCP Internal Medicine; Visit Provider Emergency Medicine
DX: R11.2 Nausea with vomiting, unspecified (principal); C82.05 Follicular lymphoma grade I, lymph nodes of inguinal region and lower limb; E78.00 Pure hypercholesterolemia, unspecified; R10.12 Left upper quadrant pain; R10.11 Right upper quadrant pain; Z87.891 Personal history of nicotine dependence; Z90.49 Acquired absence of other specified parts of digestive tract
CPT/HCPCS: 74177; 80053; 83690; 85025; 93005; 96361; 96374; 96375; 96376; 99285; Q9967; A4216; J2405

== ENCOUNTER → 2024-09-13 | Outpatient (CLI) | payer MEDICAID, SELFPAY ==
--- NOTE | 2024-09-13 10:57 | NM_ITS ---
PROCEDURE: GASTRIC EMPTYING STUDY 09/13/2024 REASON FOR EXAM: EARLY SATIETY, FREQUENT NAUSEA. Prior cholecystectomy. COMPARISON: None TECHNIQUE: The patient ingested a semi-solid meal of oatmeal. There was no vomiting postprandially. Anterior and posterior planar images of the upper abdomen were obtained for a total of 60 minutes. Regions of interest were drawn, and a geometric mean was used to calculate a [id number]. Medications taken in the past 24 hours that may affect gastric emptying: None RADIOPHARMACEUTICAL: Technetium 99 M sulfur colloid DOSE 1.2mCi orally, with the oatmeal. FINDINGS: During the time of imaging, gastroesophageal reflux was not seen. Linear fit gastric emptying half-time of 102.4 minutes. Gastric emptying at 17.5 minutes of 6%, at 29.5 minutes of 11%, at 47.5 minutes of 20%, and at 59.5 minutes of 30%. NM/Gastric Emptying Study IMPRESSION: Delayed/diminished semi solid phase gastric emptying. Reading Location: [place] [id number]
== END | disposition home or self-care (01) ==
LOC: NM 10:56
PROVIDERS: PCP Internal Medicine
DX: R11.2 Nausea with vomiting, unspecified (principal); R63.4 Abnormal weight loss
CPT/HCPCS: 78264; A9541

== ENCOUNTER 2024-09-22 08:40 | Day surgery (SDC) | payer MEDICAID, SELFPAY ==
--- NOTE | 2024-09-21 13:43 | PAT.ANESEVAL ---
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 When Was Last Pacemaker Check QUESTION #4 FULL TEXT: You/Your Family Experience fever (hyperthermia) with Anesthesia Last Oral Intake Last Oral intake: Last Oral Intake NPO since Meds taken in AM with sips of water? 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 reading specialist Female Yes 09/21/24 11:58 HX of Motion Sickness No 09/21/24 11:58 HX of N/V After Surgery No 09/21/24 11:58 Non-Smoker Yes 09/21/24 11:58 Duration of Surgery greater No 09/21/24 11:58 than 60 minutes Number of Risk Factors 2 09/21/24 11:58 PONV Score Moderate Risk 09/21/24 11:58 Height & Weight Height & Weight: Anesthesia: Height & Weight Height 4 ft 10 in 09/14/24 14:42 Respiratory Assessment Respiratory Assessment - elementary reading specialist: Respiratory Tract Infection Hx - elementary reading specialist Hx Respiratory Tract Infection No 09/21/24 11:58 STOP Sleep Apnea STOP Sleep Apnea - elementary reading specialist: STOP Sleep Apnea - elementary reading specialist Hx Hypertension No 09/21/24 11:58 Hx Sleep Apnea No 09/21/24 11:58 CPAP BIPAP Do you snore loudly (louder No 09/21/24 11:58 than talking or can be heard Do you often feel tired/ No 09/21/24 11:58 fatigued/ sleepy during daytime? Has anyone observed you stop No 09/21/24 11:58 breathing during sleep? STOP Results Negative 09/21/24 11:58 QUESTION #5 FULL TEXT : Do you snore loudly (louder than talking or can be heard through closed doors)? 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 Specify any problems Hx of Preganancy in last 3 No 09/21/24 11:58 Months Nurse Filling Out Transfusion VCHRISTIN 09/21/24 11:58 & Questions: Date: 09/21/24 09/21/24 11:58 Time: 11:59 09/21/24 11:58 Patient unable to answer at this time (ie. confused, unrespo /Reproduction History /Reproductive History - elementary reading specialist: /Reproductive Hx- elementary reading specialist Hx Now No 09/21/24 11:58 Gestational Age (in weeks): EDC: Hx Hx Para Hx Section SAB No 09/21/24 11:58 PFSH Medical History (Updated 09/14/24 @ 17:[address] Rey Schuster MD) Oral candidiasis Encounter for education MRSA (methicillin resistant staph aureus) culture positive Cancer Depression Osteoarthritis High cholesterol Chronic pain B-cell non-Hodgkin lymphoma Anxiety and depression Nausea Constipation Abdominal discomfort Swallowing difficulty Hyperlipidemia Localized skin mass, lump, or swelling Encounter for vitamin deficiency screening Screening for cardiovascular condition Lymphadenopathy, inguinal Nonhealing surgical wound Medication side effects Osteoporosis GERD (gastroesophageal reflux disease) DDD (degenerative disc disease) Wears glasses Arthritis Low iron Easy bruising Poor appetite Epigastric abdominal pain Former smoker Leg cramps Neuropathy Chronic back pain Anemia Occluded PICC line Tachycardia Tobacco dependence in remission Home Medications ?Medication ?Instructions ?Recorded ?Last Taken ?Type ascorbic acid (vitamin C) 500 mg 500 mg PO DAILY vitamin 10/14/20 01/03/24 History tablet vitamin E 268 mg (400 unit) capsule 400 unit PO DAILY vitamin 10/14/20 01/03/24 History lysine 500 mg capsule 250 mg PO DAILY 07/02/21 01/03/24 History oxycodone-acetaminophen 5 mg-325 1 tab PO BID PRN pain 01/26/23 01/04/24 History mg tablet (Percocet) cholecalciferol (vitamin D3) 25 50 mcg PO DAILY vitamin 12/11/23 01/03/24 History mcg (1,000 unit) tablet docusate sodium 100 mg capsule 100 mg PO QDAY 12/11/23 01/03/24 History lidocaine-prilocaine 2.5 %-2.5 % 1 applic topical ONCE PRN port 01/04/24 Unknown Rx topical cream access 30 days #30 grams ondansetron 4 mg disintegrating 4 mg PO Q6H PRN nausea and 02/15/24 Unknown Rx tablet vomiting #60 tabs tizanidine 4 mg capsule 4 mg PO QHS PRN muscle spasticity 08/22/24 Unknown History trazodone 100 mg tablet 100 mg PO QHS PRN sleep #90 tabs 08/22/24 Unknown Rx Allergy/AdvReac Type Severity Reaction Status Date / Time codeine AdvReac Nausea Verified 09/21/24 11:47 hydrocodone (From Vicodin) AdvReac Nausea Verified 09/21/24 11:47 Surgical History (Updated 09/21/24 @ 11:58 by Angie Clayton) Hx of surgical procedure History of colonoscopy History of esophagogastroduodenoscopy (EGD) History of carpal tunnel surgery of left wrist History of back surgery Carpal tunnel syndrome Hx of hysterectomy History of cholecystectomy H/O spinal fusion Social History household members: family Smoking Status: Former smoker alcohol intake: never substance use type: marijuana caffeine: Yes seatbelt use: always do you feel safe at home: Yes additional social history: Sumeet- Both on disability Audit: Pertinent Findings Pertinent Findings EKG Perinent findings: EKG 30/03/2024. Sinus bradycardia with short HI with occasional PVC Recommendation Anesthesia Recommendation Anesthesia recommendation: OPTIMIZED for anesthesia
[2024-09-22] VITALS (10 sets, daily range): BP systolic 86–107; BP diastolic 54–79; PULSE 71–85; RESP 16–18; TEMP 36.6; O2SAT 96–100; BMI 19.9
[2024-09-22] MEDS: Lactated Ringers 1,000 ML 15 ML IV (09:47)
--- NOTE | 2024-09-22 10:00 | EGD_PTH ---
PATIENT: IGLESIA STONER LOC: EN U#:[id number] AGE/SX: 63/F ROOM: RE09/22/[address]: Dr. Rey Schuster MD : 1960 BED: DIS: 09/22/2024 SPEC #: [id number] RECD: 09/22/24 11:07 STATUS: JADEN UMANG #: [id number] RAFFI: 09/22/24 10:[address]: Rey Schuster DEPT: SURGICAL PATHOLOGY RECD BY: Solitario Gutierrez ENTERED: 09/22/24 13:52 SP TYPE: EGD BIOPSY OT DR: Dr. Victoriano Marshall MD Tissues: A - Gastric mucous membrane B - Gastric mucous membrane C - COLON BIOPSY D - Gastric mucous membrane Procedures: Immunohistochemical Stains Surgery Specimen Level IV HEADER OPERATION: EGD with biopsy, bipolar electrohemostasis PRE-OP DIAGNOSIS: Epigastric pain, weight loss, non-intentional TISSUE SUBMITTED: A- Antrum biopsy, B- Gastric body mucosa biopsy, C- Z-line biopsy,D- Antrum biopsy #2 MICROSCOPIC DIAGNOSIS A. Antrum, #1, biopsy: - Chronic gastritis with features of reactive gastropathy. - IHC negative for H.pylori organisms. B. Gastric body, biopsy: - Oxyntic mucosa with mild chronic inflammation. - Negative for Helicobacter-like organisms (H&E). C. Esophagus, Z-line, biopsy: - Squamocolumnar mucosa negative for goblet cell metaplasia. D. Antrum, #2, biopsy: - Chronic gastritis with features of reactive gastropathy. - Negative for Helicobacter-like organisms (H&E). MICROSCOPIC DESCRIPTION Slides are reviewed. All matched controls reacted appropriately. These tests were developed and their performance characteristics determined by [facility]. They may not have been cleared or approved by the U.S. Food and Drug Administration. The FDA has determined that such clearance or approval is not necessary. The above immunohistochemical/dualISH markers are viewed by the Pathologist. GROSS DESCRIPTION A. Received in fixative is one container labeled with the patient's name and designated Antrum biopsy. The specimen consists of two irregular fragments of light angelo soft tissue that measure 0.3 and 0.4 cm. The specimen is totally submitted in one cassette. B. Received in fixative is one container labeled with the patient's name and designated Gastric body mucosa biopsy. The specimen consists of one irregular fragment of light angelo soft tissue that measures 0.5 cm. The specimen is totally submitted in one cassette. C. Received in fixative is one container labeled with the patient's name and designated Z-line biopsy. The specimen consists of one irregular fragment of light angelo soft tissue that measures 0.4 cm. The specimen is totally submitted in one cassette. D. Received in fixative is one container labeled with the patient's name and designated Antrum biopsy #2. The specimen consists of one irregular fragment of light angelo soft tissue that measures 0.7 cm. The specimen is totally submitted in one cassette. CO 09/22/2024 CPT:01034j2,29019
--- NOTE | 2024-09-22 10:03 | PCM.PRE.AN2 ---
ASA Classification* ASA Classification ASA Classification: 3 Assessment & Plan Anesthesia* Anesthesia Assessment Anesthesia Assessment: Discussed sedation and/or anesthesia options, risks, benefits, and alternatives with patient/parents/legal guardian/POA. Questions invited. The patient/parents/legal guardian/POA seems to understand and agrees to proceed with anesthesia plan. Reviewed the physical assessment, medical history, allergy history and patient home medications list prior to surgery/procedure/anesthetic and documented any changes. Performed airway and anesthesia risk assessments. Anesthesia Type Anesthesia Type: MAC History Source History Obtained from:: Patient and Chart Anesthesia Focused Assessment* Temperature: 97.8 F Pulse Rate: 85 Blood Pressure: 107/79 Respiratory Rate: 18 Pulse Ox: 100 Oxygen Delivery Method: Room Air Airway Assessment Mouth opens: 2 cm Mallampati Score: IV Teeth Condition: Caps/Crowns (Patient has several crowns. They are all tight.) Neck Range of motion (ROM): Limited ROM (Severe Restriction) Comment: Short thyromental distance. Labs Anesthesia Preop lab: CBC WBC 3.2 K/mm3 (4.4-11.0) L 06/29/24 09:06/29/24 RBC 3.32 M/mm3 (4.2-5.4) L 06/29/24 09:31 06/29/24 Hgb 11.6 g/dL (12.0-15.0) L 06/29/24 09:06/29/24 Hct 32.7 % (37-47) L 06/29/24 09:06/29/24 Plt Count 163 K/mm3 (150-450) 06/29/24 09:06/29/24 CHEMISTRY Potassium 4.2 mmol/L (3.3-5.1) 06/29/24 09:31 06/29/24 Sodium 134 mmol/L (133-145) 06/29/24 09:06/29/24 Magnesium 2.0 mg/dL (1.6-2.6) 01/26/24 08:28 01/26/24 Phosphorus 3.3 mg/dL (2.5-4.9) 01/26/24 08:28 01/26/24 BUN 13 mg/dL (4-19) 06/29/24 09:06/29/24 Creatinine 0.72 mg/dL (0.70-1.20) 06/29/24 09:31 06/29/24 Glucose 96 mg/dL (70-99) 06/29/24 09:31 06/29/24 POC Glucose 89 mg/dL (70-110) 01/08/16 15:10 01/08/16 TSH 0.90 uIU/mL (0.358-3.74) 11/06/20 15:15 11/06/20 COAG PT 13.9 SECONDS (11.7-14.9) 10/18/20 11:15 10/18/20 Pre-Assessment Diagnosis/Proposed Procedure Planned Operative Procedure(s): EGD Anesthesia History 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 When Was Last Pacemaker Check QUESTION #4 FULL TEXT: You/Your Family Experience fever (hyperthermia) with Anesthesia Last Oral Intake Last Oral intake: Last Oral Intake NPO since Meds taken in AM with sips of water? Meds patient instructed to take am of surgery Any additional information?: Yes NPO since: 00:00 Meds taken in AM with sips of water?: Yes Meds patient instructed to take am of surgery: Patient had half of a Percocet. 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 Female Yes 09/21/24 11:58 HX of Motion Sickness No 09/21/24 11:58 HX of N/V After Surgery No 09/21/24 11:58 Non-Smoker Yes 09/21/24 11:58 Duration of Surgery greater No 09/21/24 11:58 than 60 minutes Number of Risk Factors 2 09/21/24 11:58 PONV Score Moderate Risk 09/21/24 11:58 Height & Weight Height & Weight: Anesthesia: Height & Weight Height 4 ft 10 in 09/22/24 09:38 Weight: 43.2 kg 09/22/24 09:38 Body Mass Index (BMI) 19.9 09/22/24 09:38 Respiratory Assessment Respiratory Assessment - felting machine operator: Respiratory Tract Infection Hx - felting machine operator Hx Respiratory Tract Infection No 09/21/24 11:58 STOP Sleep Apnea STOP Sleep Apnea - felting machine operator: STOP Sleep Apnea - felting machine operator Hx Hypertension No 09/21/24 11:58 Hx Sleep Apnea No 09/21/24 11:58 CPAP BIPAP Do you snore loudly (louder No 09/21/24 11:58 than talking or can be heard Do you often feel tired/ No 09/21/24 11:58 fatigued/ sleepy during daytime? Has anyone observed you stop No 09/21/24 11:58 breathing during sleep? STOP Results Negative 09/21/24 11:58 QUESTION #5 FULL TEXT : Do you snore loudly (louder than talking or can be heard through closed doors)? 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 Specify any problems Hx of Preganancy in last 3 No 09/21/24 11:58 Months Nurse Filling Out Transfusion VCHRISTIN 09/21/24 11:58 & Questions: Date: 09/21/24 09/21/24 11:58 Time: 11:59 09/21/24 11:58 Patient unable to answer at this time (ie. 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: /Reproductive Hx- felting machine operator Hx Now No 09/21/24 11:58 Gestational Age (in weeks): EDC: Hx Hx Para Hx Section SAB No 09/21/24 11:58 Active Medications Active Medications: Current Medications Generic Name Dose Route Start Last Admin Trade Name Freq PRN Reason Stop Dose Admin Lactated Ringer's 1,000 mls @ 15 mls/hr 09/22/24 09:30 09/22/24 09:47 IV 15 mls/hr .Q48H JACKSON Administration PFSH Medical History Oral candidiasis Encounter for education MRSA (methicillin resistant staph aureus) culture positive Cancer Depression Osteoarthritis High cholesterol Chronic pain B-cell non-Hodgkin lymphoma Anxiety and depression Nausea Constipation Abdominal discomfort Swallowing difficulty Hyperlipidemia Localized skin mass, lump, or swelling Encounter for vitamin deficiency screening Screening for cardiovascular condition Lymphadenopathy, inguinal Nonhealing surgical wound Medication side effects Osteoporosis GERD (gastroesophageal reflux disease) DDD (degenerative disc disease) Wears glasses Arthritis Low iron Easy bruising Poor appetite Epigastric abdominal pain Former smoker Leg cramps Neuropathy Chronic back pain Anemia Occluded PICC line Tachycardia Tobacco dependence in remission Home Medications ?Medication ?Instructions ?Recorded ?Last Taken ?Type ascorbic acid (vitamin C) 500 mg 500 mg PO DAILY vitamin 10/14/20 09/22/24 History tablet vitamin E 268 mg (400 unit) capsule 400 unit PO DAILY vitamin 10/14/20 09/22/24 History lysine 500 mg capsule 250 mg PO DAILY 07/02/21 09/22/24 History oxycodone-acetaminophen 5 mg-325 1 tab PO BID PRN pain 01/26/23 09/22/24 History mg tablet (Percocet) cholecalciferol (vitamin D3) 25 50 mcg PO DAILY vitamin 12/11/23 09/22/24 History mcg (1,000 unit) tablet docusate sodium 100 mg capsule 100 mg PO QDAY 12/11/23 01/03/24 History lidocaine-prilocaine 2.5 %-2.5 % 1 applic topical ONCE PRN port 01/04/24 Unknown Rx topical cream access 30 days #30 grams ondansetron 4 mg disintegrating 4 mg PO Q6H PRN nausea and 02/15/24 Unknown Rx tablet vomiting #60 tabs tizanidine 4 mg capsule 4 mg PO QHS PRN muscle spasticity 08/22/24 Unknown History trazodone 100 mg tablet 100 mg PO QHS PRN sleep #90 tabs 08/22/24 Unknown Rx Allergy/AdvReac Type Severity Reaction Status Date / Time codeine AdvReac Nausea Verified 09/22/24 09:37 hydrocodone (From Vicodin) AdvReac Nausea Verified 09/22/24 09:37 Surgical History Hx of surgical procedure History of colonoscopy History of esophagogastroduodenoscopy (EGD) History of carpal tunnel surgery of left wrist History of back surgery Carpal tunnel syndrome Hx of hysterectomy History of cholecystectomy H/O spinal fusion Social History household members: family Smoking Status: Former smoker alcohol intake: never substance use type: marijuana caffeine: Yes seatbelt use: always do you feel safe at home: Yes additional social history: Sumeet- Both on disability Review of Systems (Anesthesia) ROS Narrative System reviewed and no additional complaints, except as documented.
--- NOTE | 2024-09-22 10:06 | PCM.HP.BLA ---
History and Physical Date of Admission: 09/22/24 Date of Service: 09/14/24 MR#: [id number] Acct: [id number] Name: IGLESIA STONER Rep #: [id number] : 1960 Provider: Dr. Rey Schuster MD Age/Sex: 63/F Location: [facility] Status: Signed Intake Vital Signs 08/22/2508:59 09/14/2513:42 Height 4 ft 10 in 4 ft 10 in Weight: 98 lb 96 lb BMI 20.5 20.0 BP 100/64 121/78 H Blood Pressure Location Lt brachial Rt brachial Position Sitting Sitting Respiration 16 18 Pulse 113 H Pulse Source Monitor Temp 98.2 F Temp Source Temporal Pulse Oximetry (%) 98 Oxygen Delivery Method room air Intake Visit Reasons: WEIGHT LOSS/ EPIGASTRIC PAIN Chief Complaint: wt loss and epigastric pain Upper Stitcher Required: No Is patient in pain?: Yes (epigastric/upper abd ) Pain scale (1-10): 10 Allergies codeine Adverse Reaction (Verified 09/14/24 14:43) Nauseahydrocodone (From Vicodin) Adverse Reaction (Verified 09/14/24 14:43) Nausea Medications ?Medication ?Instructions ?Recorded ?Confirmed ?Type ascorbic acid (vitamin C) 500 mg 500 mg PO DAILY vitamin 10/14/20 09/14/24 History tablet cyanocobalamin (vitamin B-12) 1,000 mcg PO DAILY vitamin 10/14/20 09/14/24 History 1,000 mcg tablet vitamin E 268 mg (400 unit) capsule 400 unit PO DAILY vitamin 10/14/20 09/14/24 History lysine 500 mg capsule 250 mg PO DAILY 07/02/21 09/14/24 History oxycodone-acetaminophen 5 mg-325 1 tab PO BID PRN pain 01/26/23 09/14/24 History mg tablet (Percocet) cholecalciferol (vitamin D3) 25 50 mcg PO DAILY vitamin 12/11/23 09/14/24 History mcg (1,000 unit) tablet docusate sodium 100 mg capsule 100 mg PO QDAY 12/11/23 09/14/24 History lidocaine-prilocaine 2.5 %-2.5 % 1 applic topical ONCE PRN port 01/04/24 09/14/24 Rx topical cream access 30 days #30 grams sulfamethoxazole 800 1 tab PO .COMPLEX #30 tabs 01/04/24 09/14/24 Rx mg-trimethoprim 160 mg tablet (Bactrim DS) duloxetine 30 mg capsule,delayed 30 mg PO QHS #90 caps 02/15/24 09/14/24 Rx release ondansetron 4 mg disintegrating 4 mg PO Q6H PRN nausea and 02/15/24 09/14/24 Rx tablet vomiting #60 tabs acyclovir 400 mg tablet 400 mg PO BID #60 tabs 03/08/24 09/14/24 Rx nystatin 100,000 unit/mL oral 5 ml PO TID #473 mL 03/08/24 09/14/24 Rx suspension denosumab 60 mg/mL subcutaneous 60 mg subcut [id number] #1 mL 06/28/24 09/14/24 Rx syringe (Prolia) tizanidine 4 mg capsule 4 mg PO QHS PRN 08/22/24 09/14/24 History trazodone 100 mg tablet 100 mg PO QHS PRN sleep #90 tabs 08/22/24 09/14/24 Rx pantoprazole 20 mg tablet,delayed 20 mg PO QDAY #30 tabs 08/26/24 09/14/24 Rx release Have you fallen in the past year?: Yes PFSH Medical History Oral candidiasis Encounter for education MRSA (methicillin resistant staph aureus) culture positive Cancer Depression Osteoarthritis High cholesterol Chronic pain B-cell non-Hodgkin lymphoma Anxiety and depression Nausea Constipation Abdominal discomfort Swallowing difficulty Hyperlipidemia Localized skin mass, lump, or swelling Encounter for vitamin deficiency screening Screening for cardiovascular condition Lymphadenopathy, inguinal Nonhealing surgical wound Medication side effects Osteoporosis GERD (gastroesophageal reflux disease) DDD (degenerative disc disease) Wears glasses Arthritis Low iron Easy bruising Poor appetite Epigastric abdominal pain Former smoker Leg cramps Neuropathy Chronic back pain Anemia Occluded PICC line Tachycardia Tobacco dependence in remission Surgical History History of colonoscopy History of esophagogastroduodenoscopy (EGD) History of carpal tunnel surgery of left wrist History of back surgery Carpal tunnel syndrome Hx of hysterectomy History of cholecystectomy H/O spinal fusion Social History household members: family Smoking Status: Former smoker alcohol intake: never substance use type: marijuana caffeine: Yes seatbelt use: always do you feel safe at home: Yes additional social history: Sumeet- Both on disability HPI HPI HPI: Patient is a 63-year-old female who is known to me for a history of dysphagia and more recently was seen by me in December 2023 for concerns around inguinal lymphadenopathy that ultimately led to a diagnosis of B-cell lymphoma. She is referred today from gastroenterology due to chief complaint of epigastric abdominal pain over the last 2 months and has resulted in significant weight loss. She states she underwent her last treatment for her cancer approximately 2 months ago and her symptoms began shortly after concluding treatment. She describes an epigastric abdominal pain that persists in a bandlike distribution across her upper abdomen with a sharp and aching character. She shares this is distinct from typical heartburn or reflux type pains. She also notes that it is constant and nothing seems to make it better or worse. She states she has tried Tums without relief and more recently was prescribed pantoprazole by gastroenterology but again did not notice any relief of her symptoms. She confirms some associated nausea but denies any associated bloating. She also denies any coughing up of blood and reports that her bowel movements are occurring once daily. She states there may be somewhat softer than normal but otherwise denies any presence of bloody or dark stools. Patient completed gastric emptying study yesterday as part of gastroenterology's ordered workup and this showed delayed gastric emptying. Her last EGD was performed by me on 08/25/2023 and found evidence of gastritis, hiatal hernia, and some esophageal plaques. She is pending repeat CT imaging of the abdomen pelvis on 09/21/2024. ROS General General: Yes weight change; No appetite, fatigue, colon cancer, breast cancer or weakness HEENT HEENT: Yes difficulty swallowing; No eye injury, eye surgery, swollen glands or hoarseness Endo Endocrine: No thyroid disease, diabetes mellitus, thyroid cancer, Hair loss, heat intolerance or cold intolerance Skin Skin: No rash or changing moles Breast Breast: No left breast lump, right breast lump, nipple discharge, breast pain, abnormal mammogram, abnormal US or breast enlargement Musc Musculoskeletal: Yes back problems and arthritis; No rheumatoid arthritis, gout or joint pain Cardio Cardiovascular: No murmur, pacemaker, heart disease, atrial fibrillation, high blood pressure, heart attack, heart stent, palpitations, shortness of breath with exertion or chest pain Psych Psychiatric: No depression, anxiety or hearing voices Resp Respiratory: No shortness of breath, Yes sleep apnea, No cough, No COPD, No asthma, No emphysema and No wheezing Gastro Gastrointestinal: Yes abdominal pain, Yes nausea or vomiting, No diarrhea, No constipation, No blood in stool, No acid reflux, No hemorrhoids, No ulcers, No gallbladder problem and No black,tarry stools Pepe Hematologic: No blood thinners, No blood disorders, No bleeding, No anemia and No blood clots Neuro Neurologic: No system reviewed and no additional complaints, except as documented, No as per HPI, No abnormal gait, No abnormal hearing, No abnormal movements, No abnormal speech, No behavioral changes, No burning sensations, No confusion, No convulsions, No disequilibrium, No dizziness, No localized weakness, No frequent falls, No headache(s), No lack of coordination, No loss of vision, No memory loss, No numbness, No other visual disturbances, No radicular pain, No restless legs, No sensory deficit, No syncope, No tingling, No tremor(s), No weakness and No other Exam Const General: cooperative and anxious Orientation: alert, awake and oriented x3 Other: Somewhat shaky Resp Effort & Inspection: normal respiratory effort GI Other: Thin, nondistended, chronic scars without evidence of herniation, soft, markedly tender to palpation across the epigastrium with much less tenderness does not move laterally to the right upper or left upper abdominal quadrants. No true peritoneal signs. Assessment and Plan Assessment and Plan (1) Epigastric pain: Status: Acute Comment: Patient is 63-year-old female who makes consultation related to severe, refractory epigastric discomfort. She was originally referred to gastroenterology, however, she stated she wished to undergo EGD with me given our history together. She presents today for that purpose. However, she completed gastric emptying study yesterday for gastroenterology and is pending repeat CT imaging of the abdomen pelvis. Gastric emptying study was notable for some delayed gastric emptying. Patient shares associated weight loss with pain but does clarify that food does not seem to make it worse. Her abdominal exam shows some tenderness of the epigastrium, but this does not seem to be consistent with peritoneal inflammation. Based on patient's descriptions, I am most suspicious for peptic ulcer disease versus gastritis. Temp orally, this appears to be related to patient's last chemo administration. Will plan to seek input from oncology as to any known gastrointestinal effects from that treatment. For the interim have recommended to patient that she plan to return to pantoprazole (patient states that she has gone off this medication but does not know why). I also encouraged her to consider cutting out any caffeine given its inhibitory effects on the lower esophageal sphincter. I considered prescribing her a course of Reglan to act as both an antiemetic and a prokinetic, however, patient repeatedly complains about the number of medication she is presently prescribed and I am concerned about changing too many variables at once. Her history is supportive of a diagnosis of delayed gastric emptying, but I remain cautious about taking too much from this study given patient's acute symptoms and risk for a skewed result. Will plan for urgent endoscopic evaluation and further treatment plans pending that evaluation and communication with oncology and gastroenterology. Plan: ? Patient instructed to resume pantoprazole first thing in the morning absent any food or drink ? Patient encouraged to abstain from caffeine ? Plan for diagnostic EGD at first availability (2) Weight loss, non-intentional: Status: Acute I have examined the patient and the H&P has been reviewed. There are no clinical changes since date of exam. Patient reports ongoing abdominal discomfort. Abdominal exam remains consistent with mild tenderness of the epigastrium on palpation. Will proceed to endoscopy suite for diagnostic EGD.
--- NOTE | 2024-09-22 10:57 | OP.PROVAT_ITS ---
09/22/2024 Victoriano Marshall MD [address] [place] [address] Re : Upper GI endoscopy procedure for Mary Valiente Dear Dr. Marshall This procedure was performed on September. My impressions and recommendations are as follows: Impressions : - Normal duodenal bulb, first portion of the duodenum and second portion of the duodenum. No specimens collected. - Erythematous mucosa in the antrum. Biopsied. - Gastritis. Biopsied. - Small hiatal hernia. No specimens collected. - Z-line irregular, 38 cm from the incisors. Biopsied. - Normal esophagus. Recommendations : - Discharge patient to home (via wheelchair). - Resume previous diet today. - No aspirin, ibuprofen, naproxen, or other non-steroidal anti-inflammatory drugs for 2 days after biopsy. - Use sucralfate suspension 1 gram PO BID today. - Await pathology results. - Telephone my office for pathology results in 1 week. My findings are described in the full procedure note, which is enclosed. If I can be of further assistance, please feel free to contact me at Doctor phone number(s): , Work: . Sincerely, Rey Schuster MD 09/22/2024 10:56:44 AM This report has been signed electronically.
--- NOTE | 2024-09-22 10:57 | OP.EGD_ITS ---
Patient Name: Mary Valeinte Procedure Date: 09/22/2024 10:05 AM Date of : 1960 Age: 63 Procedure: Upper GI endoscopy Indications: Epigastric abdominal pain, Weight loss Providers: Rey Schuster MD Referring MD: Victoriano Marshall MD Medicines: See the Anesthesia note for documentation of the administered medications Patient Profile: Refer to note in patient chart for documentation of history and physical. Patient has symptoms of acute epigastric abdominal pain. Complications: No immediate complications. Estimated blood loss: Minimal. Procedure: Pre-Anesthesia Assessment: - The heart rate, respiratory rate, oxygen saturations, blood pressure, adequacy of pulmonary ventilation, and response to care were monitored throughout the procedure. After obtaining informed consent, the endoscope was passed under direct vision. Throughout the procedure, the patient's blood pressure, pulse, and oxygen saturations were monitored continuously. The gastroscope was introduced through the mouth, and advanced to the second part of duodenum. The upper GI endoscopy was accomplished without difficulty. The patient tolerated the procedure well. Scope In: 10:27:05 AM Scope Out: 10:48:04 AM Total Procedure Duration Time 0 hours 20 minutes 59 seconds Findings: The duodenal bulb, first portion of the duodenum and second portion of the duodenum were normal. No biopsies or other specimens were collected for this exam. Striped moderately erythematous mucosa with stigmata of recent bleeding was found in the gastric antrum. Biopsies were taken with a cold forceps for histology. Estimated blood loss was minimal. Localized moderate inflammation characterized by adherent blood, congestion (edema), erythema and linear erosions was found in the gastric antrum. Biopsies were taken with a cold forceps for histology. Estimated blood loss: 2 mL requiring treatment with coagulation. A small hiatal hernia was present. No biopsies or other specimens were collected for this exam. The Z-line was irregular and was found 38 cm from the incisors. Biopsies were taken with a cold forceps for histology. Estimated blood loss was minimal. The esophagus was normal. Impression: - Normal duodenal bulb, first portion of the duodenum and second portion of the duodenum. No specimens collected. - Erythematous mucosa in the antrum. Biopsied. - Gastritis. Biopsied. - Small hiatal hernia. No specimens collected. - Z-line irregular, 38 cm from the incisors. Biopsied. - Normal esophagus. Recommendation: - Discharge patient to home (via wheelchair). - Resume previous diet today. - No aspirin, ibuprofen, naproxen, or other non-steroidal anti-inflammatory drugs for 2 days after biopsy. - Use sucralfate suspension 1 gram PO BID today. - Await pathology results. - Telephone my office for pathology results in 1 week. Procedure Code(s): --- Professional --- 09311, Esophagogastroduodenoscopy, flexible, transoral; with biopsy, single or multiple Diagnosis Code(s): --- Professional --- K31.89, Other diseases of stomach and duodenum K29.70, Gastritis, unspecified, without bleeding K44.9, Diaphragmatic hernia without obstruction or gangrene K22.89, Other specified disease of esophagus R10.13, Epigastric pain R63.4, Abnormal weight loss CPT copyright 2021 [employer]. All rights reserved. The codes documented in this report are preliminary and upon classified ad taker review may be revised to meet current compliance requirements. Rey Schuster MD 09/22/2024 10:56:44 AM This report has been signed electronically. Number of Addenda: 0 Note Initiated On: 09/22/2024 10:05 AM
--- NOTE | 2024-09-22 10:59 | PCM.POST.ANE ---
Anesthesia: Postop Eval I Current Vital Signs Temperature: 97.8 F Pulse Rate: 77 Blood Pressure: 107/69 Respiratory Rate: 16 Pulse Ox: 100 Oxygen Delivery Method: Room Air Assessment Airway patent: Yes Spontaneous unlabored respirations: Yes Mental status: Asleep nausea: No Vomiting: No Anesthesia Complication: Yes Anesthesia Complication Comment:: hypotension, tx w/phenylephrine Fluid Hydration Crystalloid volume administer (ml): 200 Total IV fluid infused: 200 Progress Note Anesthesia document: Postop Eval 1 completed: Yes
--- NOTE | 2024-09-22 19:37 | PCM.POSTANE2 ---
Anesthesia Postop Eval I Sum Postop Eval Completion status Anesthesia document: Postop Eval 1 completed: Yes Anesthesia Postop Eval I Summary Anesthesia Postop Eval I Summary: Anesthesia Postop Eval I: Assessment Summary Airway patent Yes 09/22/24 11:00 [email or web address] Spontaneous unlabored Yes 09/22/24 11:00 [email or web address] respirations Mental status Asleep 09/22/24 11:00 [email or web address] nausea No 09/22/24 11:00 [email or web address] Vomiting No 09/22/24 11:00 [email or web address] Anesthesia Postop Eval I: Fluid Summary Crystalloid volume administer 200 09/22/24 11:00 [email or web address] (ml) Colloids volume administered ( ml) Blood Product volume administered (ml) Total IV fluid infused 200 09/22/24 11:00 [email or web address] Anesthesia Postop Eval I: Summary Notes Anesthesia Complication Yes 09/22/24 11:00 [email or web address] Anesthesia Complication hypotension, tx w/ 09/22/24 11:00 [email or web address] Comment: phenylephrine Post-operative progress note Anesthesia: Postop Eval II Evaluation Mental status: Awake and Calm Pain Level: 0 nausea: No Vomiting: No Complications Anesthesia Complication: No
== END 2024-09-22 12:03 | disposition home or self-care (01) ==
LOC: EN 08:41 → AC 08:43
PROVIDERS: PCP Internal Medicine; Referring Provider Internal Medicine; Visit Provider Surgery
PROC: 0DJ08ZZ Inspection of Upper Intestinal Tract, Via Natural or Artificial Opening Endoscopic (ICD-10-PCS; CPT 43235; principal; 2024-09-22 09:55)
DX: K29.50 Unspecified chronic gastritis without bleeding (principal); R63.4 Abnormal weight loss; K44.9 Diaphragmatic hernia without obstruction or gangrene; K31.89 Other diseases of stomach and duodenum; K22.89 Other specified disease of esophagus; K21.9 Gastro-esophageal reflux disease without esophagitis; F32.A Depression, unspecified; G62.9 Polyneuropathy, unspecified; M81.0 Age-related osteoporosis without current pathological fracture; G89.29 Other chronic pain; Z68.1 Body mass index [BMI] 19.9 or less, adult; Z85.72 Personal history of non-Hodgkin lymphomas; Z90.49 Acquired absence of other specified parts of digestive tract; Z79.899 Other long term (current) drug therapy; Z87.19 Personal history of other diseases of the digestive system; Z87.891 Personal history of nicotine dependence
CPT/HCPCS: 43239; 88305; 88342; C1889; A4216; J2405

== ENCOUNTER → 2024-10-05 | Outpatient (CLI) | payer MEDICAID, SELFPAY ==
--- NOTE | 2024-10-05 14:30 | CT_ITS ---
PROCEDURE: ABDOMEN/PELVIS WITH CONTRAST 10/05/2024 REASON FOR EXAM: EPIGASTRIC PAIN, FREQUENT NAUSEA History of prior non-Hodgkin's lymphoma. TECHNIQUE: ABDOMEN/PELVIS WITH CONTRAST Coronal and Sagittal reconstruction series were provided. CONTRAST: Isovue 370 VOLUME: 75 mL One or more dose reduction techniques were used (e.g., Automated exposure control, adjustment of the mA and/or kV according to patient size, use of iterative reconstruction technique. RADIATION DOSE SUMMARY: CTDlvol: 8 mGy DLP: 277.07 mGycm COMPARISON: Prior study dated March 30, 2024. FINDINGS: Lung bases: Mild dependent atelectasis a dual-chamber pacemaker is seen. Liver: Normal size. No mass. Gallbladder: Surgically absent. Spleen: Normal size. Pancreas: Normal size without evidence of mass surrounding inflammation or ductal dilation. Adrenals: Unremarkable Kidneys: Normal renal sizes. No hydronephrosis. Bladder: Unremarkable Reproductive Organs: Prior hysterectomy. Adnexal regions are unremarkable. Bowel: Unremarkable Appendix: The appendix is not identified. There is no inflammatory process identified in the right lower quadrant to suggest appendicitis. Lymph nodes: Unremarkable. Vasculature: Mild diffuse atherosclerotic calcifications are noted. Peritoneum / Retroperitoneum: Stable 2.4 cm x 1.2 cm hypodense nodule lateral to the inferior vena cava as seen on axial image number 37 and coronal image number 48. This may represent a necrotic lymph node. Bones: Status post multilevel intrapedicular screw and lucio fixation of the visualized lower thoracic and lumbar spine. CT/Abdomen/Pelvis WITH Contrast IMPRESSION: Stable examination. Reading Location: [facility]
== END | disposition home or self-care (01) ==
LOC: CT 14:22
PROVIDERS: PCP Internal Medicine
DX: Z45.2 Encounter for adjustment and management of vascular access device (principal); C85.10 Unspecified B-cell lymphoma, unspecified site; R11.2 Nausea with vomiting, unspecified; R63.4 Abnormal weight loss; R10.13 Epigastric pain
CPT/HCPCS: 74177; Q9967

== ENCOUNTER 2024-10-17 12:00 | Outpatient (RCR) | payer MEDICAID, SELFPAY ==
--- NOTE | 2024-10-11 14:39 | NS ---
10/11/24: Tried calling patient for nutrition follow-up. No answer and patient's voicemail isn't set up. Nery Jasmine RDN, LD
== END 2024-11-08 23:59 ==
LOC: NS 12:00
PROVIDERS: PCP Internal Medicine; Visit Provider Internal Medicine Medical Oncology
DX: Z71.3 Dietary counseling and surveillance (principal); C85.10 Unspecified B-cell lymphoma, unspecified site

== ENCOUNTER 2024-11-04 10:17 | Outpatient (CLI) | payer MEDICAID, SELFPAY ==
[2024-11-04 10:36] VITALS: BP 123/80; PULSE 77; RESP 16; TEMP 36.7; O2SAT 99; BMI 20.7
== END 2024-11-04 23:59 | disposition home or self-care (01) ==
LOC: MEDOUTP 10:18
PROVIDERS: PCP Internal Medicine; Referring Provider Internal Medicine; Visit Provider Internal Medicine
DX: Z45.2 Encounter for adjustment and management of vascular access device (principal); M81.0 Age-related osteoporosis without current pathological fracture
CPT/HCPCS: 96372; 96523; J3111

== ENCOUNTER 2024-12-09 10:22 | Outpatient (CLI) | payer MEDICARE, SELFPAY ==
[2024-12-09 10:40] VITALS: BP 115/66; PULSE 69; RESP 16; TEMP 36.3; O2SAT 99; BMI 20.5
== END 2024-12-09 23:59 | disposition home or self-care (01) ==
PROVIDERS: PCP Internal Medicine; Referring Provider Internal Medicine; Visit Provider Internal Medicine
DX: M81.0 Age-related osteoporosis without current pathological fracture (principal)
CPT/HCPCS: 96372; J3111

== ENCOUNTER → 2024-12-20 | Outpatient (CLI) | payer MEDICARE, SELFPAY | END | disposition home or self-care (01) | LOC: CIMLAB 14:51 | PROVIDERS: PCP Internal Medicine; Referring Provider Nurse Practitioner Family; Visit Provider Nurse Practitioner Family | DX: R30.0 Dysuria (principal) | CPT/HCPCS: 87086; 87088 ==

== ENCOUNTER 2025-01-06 10:09 | Outpatient (CLI) | payer MEDICARE, SELFPAY ==
--- OUTSIDE RECORDS SUMMARY | 2025-01-06 10:14 | XMS RPT_ITS | CCD ---
Author Organization [facility] Care Team Providers Care [place] Technician Name Role Phone IMCA Unavailable Unavailable ANGELICA FIGUEREDO Unavailable Unavailable ELIZABETH TOOMAS S Referring Unavailable ZAHIRA PUGH (PA) Referring Unavailable OMKAR WASHINGTON (PA-C) Admitting Unavailabl e OMKAR WASHINGTON (PA-C) Attending Unavailabl e ELIZABETH, TOOMAS S Admitting Unavailable ELIZABETH, TOOMAS S Attending Unavailable NAROUZE, SAMER Consulting Unavailable AA NO PCP, NO PCP Primary Care Unavailable ELIZABETH, TOOMAS Admitting Unavailable ELIZABETH, TOOMAS Attending Unavailable JELANI NOVAK Consulting Unavailable HUYEN MORGAN Consulting Unavailable SHAZIA MCCRAY Consulting Unavailable SOUTARYN, ROSEANN Consulting Unavailabl e FILOMENA LAMA Consulting Unavailable KYM OLIVEROS Consulting Unavailable ELIZABETH, TOOMAS Procedure Practitioner Unavailab AARON Romo Consulting Unavailable NAROUZE, SAMER Consulting Unavailable AA NO PCP, NO PCP Primary Care Unavailable ELIZABETH, TOOMAS Attending Unavailable ELIZABETH, TOOMAS Admitting Unavailable SKYLA DENISE Consulting Unavailable NAYANA, ROSEANN Consulting Unavailabl e KYM OLIVEROS Consulting Unavailable ELIZABETH, TOOMAS Procedure Practitioner Unavailab SALVATORE Morgan NP Admitting Unavailable AA REQUESTED, NEW Primary Care Unavailable SALVATORE RIOJAS NP Attending Unavailable AA NO PCP, NO PCP Primary Care Unavailable ELIZABETH, TOOMAS Attending Unavailable ELIZABETH, TOOMAS Admitting Unavailable ELIZABETH, TOOMAS Admitting Unavailable AA NO PCP, NO PCP Primary Care Unavailable ELIZABETH, TOOMAS Attending Unavailable AA NO PCP, NO PCP Primary Care Unavailable ELIZABETH, TOOMAS Attending Unavailable ELIZABETH, TOOMAS Admitting Unavailable AA NO PCP, NO PCP Primary Care Unavailable CHARLI HALL Admitting Unavailable CHARLI HALL Attending Unavailable Dr. Jerrica Marshall Primary Care Provider 1(33 0) Dr. Jerrica Marshall Attending Provider [phone])2 Rolando, Dr. Pastrana Referring Provider [phone])2 AZEEM Gamino Attending Provider UnavailDr. Jerrica Cárdenas Primary Care Provider 1(33 0) Rolando, Dr. Pastrana Referring Provider 1(330)2 Dr. Savita Ash Attending Provider Dr. Savita Ash Other Provider Dr. Jerrica Marshall Primary Care Provider 1(33 0) Rolando, Dr. Pastrana Referring Provider 1(330)2 AZEEM Gamino Attending Provider Unavailab Dr. Jerrica Gupta Attending Provider 1(330)2 Dr. Jerrica Marshall Primary Care Provider 1(33 0) Rolando, Dr. Pastrana Attending Provider 1(330)2 Dr. Jerrica Marshall Referring Provider [phone])2 Ekaterina METAL RIVET MACHINE OPERATOR, METAL RIVET MACHINE OPERATOR-C Maria Isabel Attending Provider AZEEM Gamino Attending Provider UnavailDr. Jerrica Cárdenas Primary Care Provider 1(33 0) Dr. Jerrica Marshall Attending Provider 1(330)2 Dr. Jerrica Marshall Referring Provider 1(330)2 Sindi METAL RIVET MACHINE OPERATOR, METAL RIVET MACHINE OPERATOR-C Wilber Attending Provider [phone] Dr. Jerrica Marshall Primary Care Provider 1(33 0) Dr. Jerrica Marshall Referring Provider 1(330)2 Felicia Larson Primary Care Provider Boubacar Cardoso Unavailable Felicia Larson Primary Care Provider [phone] Jerrica Marshall MD Primary Care Provider 1(3 30) Rolando, Dr. Pastrana Primary Care Provider 1(33 0) Rolando, Dr. Pastrana Attending Provider 1(330)2 Dr. Jerrica Marshall Referring Provider 1(330)2 Boubacar Cardoso MD Unavailable Unavailable Primary Care Provider Unavailabl e PROVIDER, UNKNOWN Admitting Unavailable PROVIDER, UNKNOWN Attending Unavailable BHAVANA DUNN Attending Unavailable PROVIDER, UNKNOWN Admitting Unavailable Dr. Jerrica Marshall Primary Care Provider 1(33 0) Rolando, Dr. Pastrana Attending Provider 1(330)2 Dr. Jerrica Marshall Referring Provider 1(330)2 Rolando, Dr. Pastrana Primary Care Provider 1(33 0) Rolando, Dr. Pastrana Attending Provider 1(330)2 Rolando, Dr. Pastrana Referring Provider 1(330)2 NIMO Claire Attending Provider 1(330) Jerrica Marshall MD Primary Care Provider 1(3 30) SELF Referring Unavailable OLEGHE, EFEWONGBE B Primary Care Unavailable JOSE MARTIN HAGEN Attending Unavailable BRYANNA WEBBER Referring Unavailable OLEGHE, EFEWONGBE B Primary Care Unavailable LILIAN, ROSIO I Referring Unavailable OLEGHE, EFEWONGBE B Primary Care Unavailable OLEGHE, EFEWONGBE B Primary Care Unavailable VALORIE OH Referring Unavailable LILIAN, ROSIO I Attending Unavailable BRYANNA WEBBER Referring Unavailable OLEGHE, EFEWONGBE B Primary Care Unavailable BRYANNA WEBBER Referring Unavailable OLEGHE, EFEWONGBE B Primary Care Unavailable BRYANNA WEBBER Attending Unavailable OLEGHE, EFEWONGBE B Primary Care Unavailable OLEGHE, EFEWONGBE B Primary Care Unavailable SELF Referring Unavailable VALORIE OH Attending Unavailable OLEGHE, EFEWONGBE B Primary Care Unavailable OLEGHE, EFEWONGBE B Primary Care Unavailable ROSIO BUTTERFIELD I Referring Unavailable VALORIE OH Jd Attending Unavailable OLEGHE, EFEWONGBE B Primary Care Unavailable ROSIO BUTTERFIELD I Attending Unavailable Rolando PEÑA, Dr. Pastrana Primary Care Provider Rolando PEÑA, Dr. Pastrana Referring Provider Joshua METAL RIVET MACHINE OPERATOR-C, Pao Attending Provider Johnny PEÑA, Dr. Ross Attending Provider Johnny PEÑA, Dr. Ross Emergency Provider Ella PEÑA, Dr. Orozco Attending Provider Ella PEÑA, Dr. Orozco Referring Provider Joshua METAL RIVET MACHINE OPERATOR-C, Pao Other Provider Rolando PEÑA, Dr. Pastrana Primary Care Provider Rolando PEÑA, Dr. Pastrana Referring Provider Joshua METAL RIVET MACHINE OPERATOR-C, Pao Attending Provider Rolando PEÑA, Dr. Pastrana Attending Provider Brown METAL RIVET MACHINE OPERATOR-C, Jigna Attending Provider Rolando PEÑA, Dr. Pastrana Primary Care Provider Rolando PEÑA, Dr. Pastrana Referring Provider Kevin METAL RIVET MACHINE OPERATOR-C, Jigna Referring Provider Dr. Skyla Schuster MD Attending Provider Ella PEÑA, Dr. Orozco Referring Provider Joshua METAL RIVET MACHINE OPERATOR-C, Pao Other Provider Landen PEÑA, Dr. Le Other Provider Rolando PEÑA, Dr. Pastrana Primary Care Provider Rolando PEÑA, Dr. Pastrana Referring Provider Ella PEÑA, Dr. Orozco Attending Provider Esteban METAL RIVET MACHINE OPERATOR-C, Juli Attending Provider Rolando PEAÑ, Dr. Pastrana Primary Care Physician Rolando PEÑA, Dr. Pastrana Attending Physician [phone] Rolando PEÑA, Dr. Pastrana Referring Provider [phone] Kevin FRANKLIN-C, Jigna Attending Physician Landen PEÑA, Dr. Le Attending Physician Landen PEÑA, Dr. Le Nurse Practitioner Ella PEÑA, Dr. Orozco Attending Physician Esteban METAL RIVET MACHINE OPERATOR-C, Juli Attending Physician Ella PEÑA, Dr. Orozco Referring Provider Joshua METAL RIVET MACHINE OPERATOR-C, Pao Nurse Practitioner Oleghe, Efewongbe Referring Unavailable Oleghe, Efewongbe Primary Care Unavailable Oleghe, Efewongbe Attending Unavailable Oleghe, Efewongbe Primary Care Unavailable Dominique Remy Attending Unavailable UngererDominique Referring Unavailable Oleghe, Efewongbe Referring Unavailable Oleghe, Efewongbe Primary Care Unavailable Ernesto Jaramillo Attending Unavailable Skyla Schuster Attending Unavailable Oleghe, Efewongbe Referring Unavailable Oleghe, Efewongbe Primary Care Unavailable Oleghe, Efewongbe Primary Care Unavailable Turner, Cody Attending Unavailable Oleghe, Efewongbe Primary Care Unavailable Ernesto Jaramillo Attending Unavailable Ernesto Jaramillo Referring Unavailable Joshua METAL RIVET MACHINE OPERATOR, Pao Consulting Unavailable Oleghe, Efewongbe Referring Unavailable Oleghe, Efewongbe Primary Care Unavailable Oleghe, Efewongbe Attending Unavailable Oleghe, Efewongbe Primary Care Unavailable Ernesto Jaramillo Attending Unavailable Oleghe, Efewongbe Referring Unavailable Oleghe, Efewongbe Primary Care Unavailable Ernesto Jaramillo Attending Unavailable Oleghe, Efewongbe Referring Unavailable Oleghe, Efewongbe Primary Care Unavailable Dominique Remy Attending Unavailable Oleghe, Efewongbe Referring Unavailable Ernesto Jaramillo Attending Unavailable Oleghe, Efewongbe Primary Care Unavailable Oleghe, Efewongbe Attending Unavailable Oleghe, Efewongbe Referring Unavailable Oleghe, Efewongbe Primary Care Unavailable Oleghe, Efewongbe Referring Unavailable Oleghe, Efewongbe Primary Care Unavailable Ernesto Jaramillo Attending Unavailable Oleghe, Efewongbe Referring Unavailable Oleghe, Efewongbe Primary Care Unavailable Joshua METAL RIVET MACHINE OPERATOR, Pao Attending Unavailable Oleghe, Efewongbe Referring Unavailable Oleghe, Efewongbe Primary Care Unavailable Oleghe, Efewongbe Attending Unavailable Oleghe, Efewongbe Referring Unavailable Oleghe, Efewongbe Primary Care Unavailable Joshua METAL RIVET MACHINE OPERATOR, Pao Attending Unavailable Oleghe, Efewongbe Primary Care Unavailable Ernesto Jaramillo Attending Unavailable Oleghe, Efewongbe Referring Unavailable Oleghe, Efewongbe Primary Care Unavailable Jigna Brown Attending Unavailable Skyla Schuster Attending Unavailable Oleghe, Efewongbe Referring Unavailable Oleghe, Efewongbe Primary Care Unavailable Skyla Schuster Referring Unavailable Skyla Schuster Consulting Unavailable Skyla Schuster Attending Unavailable Oleghe, Efewongbe Primary Care Unavailable Skyla Schuster Referring Unavailable Oleghe, Efewongbe Primary Care Unavailable Skyla Schuster Attending Unavailable Oleghe, Efewongbe Referring Unavailable Oleghe, Efewongbe Primary Care Unavailable Joshua METAL RIVET MACHINE OPERATOR, Pao Attending Unavailable Oleghe, Efewongbe Primary Care Unavailable Jigna Brown Attending Unavailable Jigna Brown Referring Unavailable Oleghe, Efewongbe Referring Unavailable Oleghe, Efewongbe Primary Care Unavailable Joshua METAL RIVET MACHINE OPERATOR, Pao Attending Unavailable Oleghe, Efewongbe Referring Unavailable Oleghe, Efewongbe Primary Care Unavailable Ernesto Jaramillo Attending Unavailable Oleghe, Efewongbe Referring Unavailable Oleghe, Efewongbe Primary Care Unavailable Joshua METAL RIVET MACHINE OPERATOR, Pao Attending Unavailable Oleghe, Efewongbe Referring Unavailable Oleghe, Efewongbe Primary Care Unavailable Skyla Schuster Attending Unavailable Oleghe, Efewongbe Referring Unavailable Ernesto Jaramillo Attending Unavailable Oleghe, Efewongbe Primary Care Unavailable Skyla Schuster Attending Unavailable Skyla Schuster Consulting Unavailable Oleghe, Efewongbe Referring Unavailable Oleghe, Efewongbe Primary Care Unavailable Ernesto Jaramillo Attending Unavailable Oleghe, Efewongbe Primary Care Unavailable Ernesto Jaramillo Attending Unavailable Oleghe, Efewongbe Primary Care Unavailable Oleghe, Efewongbe Referring Unavailable Oleghe, Efewongbe Primary Care Unavailable Oleghe, Efewongbe Attending Unavailable Juli Orellana Attending Unavailable Oleghe, Efewongbe Referring Unavailable Oleghe, Efewongbe Primary Care Unavailable Oleghe, Efewongbe Referring Unavailable Oleghe, Efewongbe Primary Care Unavailable Oleghe, Efewongbe Attending Unavailable Oleghe, Efewongbe Primary Care Unavailable Jigna Brown Attending Unavailable Jigna Brown Referring Unavailable Allergies Allergy Classification Reported Allergen(s) Allergy Type Date of Onset Reaction(s) Facility Acetaminophen / HYDROcodone (1 source) Acetaminophen / HYDROcodone Drug Allergy 06-22-19 13 Vomiting [facility] (1 source) Codeine Drug Allergy 06-22-19 13 Hives, GI Upset [facility] (20 sources) acetaminophen / HYDROcodone; Translations: [HYDROCODONE-ACET AMINOPHEN] Drug Allergy 06-22-19 13 Vomiting [facility] (20 sources) codeine; Translations: [CODEINE] Drug Allergy 06-22-19 13 Hives, GI Upset [facility] (20 sources) BEE STING; Translations: [BEE STING] Propensity to adverse reactions (disorder) 06-22-19 13 Swelling [facility] (20 sources) HYDROcodone Drug Allergy 04-19-19 22 Nausea [facility] (2 sources) Acetaminophen / HYDROcodone; Translations: [ACETAMINOPHEN-HY DROCODONE] Drug Allergy 01-07-20 23 [facility] (2 sources) bee venom; Translations: [BEE VENOM] Propensity to adverse reactions to drug 06-22-19 13 Swelling [facility] (1 source) HYDROcodone Drug Allergy 12-22-19 25 [facility] Medications Current Medications Medication Drug Class(es) Dates Sig (Normalized) Sig (Original) acetaminophen 500 mg oral tablet (4 sources) Start: 10-14-2020 take 1000 mg by mouth every eight hours Acetaminophen Active 1000 MG PO Q8H October 14, 2020 2:29pm acetaminophen 325 mg / oxyCODONE hydrochloride 5 mg oral tablet (20 sources) Opioid Agonist Start: 04-07-2023 oxyCODONE-acetamino phen (PERCOCET) 5-325 mg tablet 04/07/2023 Active Start: 01-26-2023 take 0.5 tablet by m outh twice daily in the morning for pain Start: 07-02-2021 End: 05-07-2022 Oxycodone-Acetaminophen 5-32 5 mg Tablet Discontinued 0.5 {tbl} PO THREE TIMES A DAY July 02, 2021 12:00am May 07, 2022 12:58pm Start: 07-02-2021 End: 05-07-2022 take 0.5 tablet by mouth three times daily Oxycodone-Acetaminophen Discontinued 0.5 TABLET PO THREE TIMES A DAY July 02, 2021 12:00am May 07, 2022 12:58pm Start: 02-06-2021 take 1 tablet by kenzie th every eight hours Oxycodone-Acetaminophen Active 1 TABLET PO Q8H February 06, 2021 3:33pm Start: 04-29-2017 End: 11-19-2022 take 1 tablet by mouth every six hours as needed oxyCODONE-acetaminophen (PERCOCET) 5-325 mg tablet Take 1 tablet by mouth every 6 hours as needed. 0 04/29/2017 11/19/2022 Discontinued Start: 04-29-2017 oxyCODONE-acet aminophen (PERCOCET) 5-325 mg tablet Comment on above: Take 1 tablet by kenzie th every 6 hours as needed. ascorbic acid 500 mg oral tablet (20 sources) Vitamin C Start: 10-14-2020 take 1 tablet by mouth once daily take 1 tablet by mouth once armani y Ascorbic Acid (VITAMIN C) 100 mg tablet Take 100 mg by mouth once daily. Active Comment on above: Take 100 mg by mouth once daily. calcium carbonate 750 mg chewable tablet (11 sources) take 1 tablet by mouth once daily calcium Carbonate 300 mg, 750mg, (TUMS) 300 mg (750 mg) chewable tablet Take 1 tablet by mouth once daily. Active cephalexin 500 mg oral capsule (20 sources) Cephalosporin Antibacterial Start: 09-02-19 End: 10-28-19 take 2 capsules by mouth three times daily cephALEXin (KEFLEX) 500 mg capsule Indications: Infection of thoracic spine (HCC) , MSSA (methicillin susceptible Staphylococcus aureus) infection Take 2 capsules by mouth three times daily. 336 capsule 0 09/01/2022 10/27/2022 Active Start: 04-28-2022 End: 06-26-2022 take 1 capsule by mouth every six hours Cephalexin 500 mg capsule Discontinued 500 mg PO EVERY 6 HOURS 40 0 April 28, 2022 12:00am June 26, 2022 2:08pm Start: 06-10-2021 take 500 mg by mouth every twelve hours Cephalexin Active 500 MG PO Q12H June 10, 2021 8:32am Comment on above: Take 2 capsules by [facility] three times daily. cholecalciferol 0.025 mg ora l tablet (20 sources) Vitamin D Start: 12-11-2023 take 1 tablet by mouth once daily Start: 10-14-2020 End: 12-11-2023 take 1 tablet by mouth once daily Cholecalciferol (Vitamin D3) 25 mcg (1,000 unit) Tablet Discontinued 25 ug PO DAILY 30 0 October 29, 2020 11:09am December 11, 2023 10:22am vitamin Start: 06-21-2012 Cholecalcifero l, Vitamin D3, 5,000 unit cap Take 2,000 Units by mouth once daily. 0 06/21/2012 Active Start: 06-21-2012 take 1 capsule by [facility] once daily Cholecalciferol, Vitamin D3, 5,000 unit cap Take 1 capsule by mouth once daily. 0 06/21/2012 Active Comment on above: Take 1 capsule by [facility] once daily. cyclobenzaprine hydrochloride 10 mg oral tablet (1 source) Muscle Relaxant Start: End: take 1 tablet by mouth every eight hours as needed cyclobenzaprine (FLEXERIL) 10 mg tablet Take 1 tablet by mouth three times daily as needed for muscle spasm for up to 7 days. 21 tablet 0 08/28/2022 09/04/2022 Active Comment on above: Take 1 tablet by [facility] three times daily as needed for muscle spasm for up to 7 days. dicloxacillin 500 mg oral capsule (1 source) Penicillin-class Antibacterial Start: End: take 1 capsule by mouth four times daily dicloxacillin (DYNAPEN) 500 mg capsule Take 1 capsule by mouth four times daily. 248 capsule 0 08/28/2022 10/29/2022 Active Comment on above: Take 1 capsule by [facility] four times daily. gabapentin 300 mg oral capsule (20 sources) Anti-epileptic Agent Start: 024 take 1 capsule by mouth twice daily gabapentin (NEURONTIN) 300 mg capsule Take 300 mg by mouth two times a day. 09/02/2023 Active Start: 02-06-2021 take 2 tablets by [facility] once daily at bedtime Gabapentin Active 300 MG PO AT BEDTIME February 06, 2021 3:32pm two tablets QHS ibuprofen 200 mg oral tablet (18 sources) Nonsteroidal Anti-inflammatory Drug Start: 02-06-2021 take 1 tablet by mouth every six hours Ibuprofen (Advil) 200 mg tablet Active 200 MG PO EVERY 6 HOURS February 06, 2021 3:36pm End: 04-13-2023 take 4 tablets by mouth every six hours as needed ibuprofen (MOTRIN) 200 mg tablet Take 800 mg by mouth every 6 hours as needed. 0 04/13/2023 Discontinued Comment on above: Take 800 mg by mouth every 6 hours as needed. lansoprazole 30 mg delayed release oral capsule (3 sources) Proton Pump Inhibitor Start: 5 take 1 capsule by mouth once daily lidocaine 0.05 mg/mg medicated patch (1 source) Antiarrhythmic, Amide Local Anesthetic Start: 3 apply 1 dose transdermal route every twenty-four hours lidocaine (Lidoderm) 5 % patch Place 1 Patch on the skin every 24 hours. (up to 12 hours on, 12 hours off) 10 Patch 0 01/06/2023 Active lysine 500 mg oral tablet (20 sources) Start: 2 Start: 07-02-2021 take 250 mg by mouth once armani y Lysine Active 250 MG PO DAILY July 02, 2021 12:00am Start: 08-13-2020 lysine 500 mg tab 500 mg. 08/13/2020 Active Comment on above: 500 mg. ondansetron 4 mg disintegrating oral tablet (20 sources) Serotonin-3 Receptor Antagonist Start: 08-14-2023 End: 02-15-2024 take 1 tablet by mouth every six hours as needed for nausea and vomiting Start: 05-12-2023 End: 07-27-2023 take 1 tablet by mouth every eight hours as needed for nausea and vomiting Ondansetron 4 mg tablet,disintegrating Discontinued 4 mg PO Q8H as needed for nausea and vomiting 30 May 12, 2023 12:00am July 27, 2023 2:04pm Viral infection Viral infection, unspecified Start: 04-13-2023 End: 04-18-2023 take 1 tablet by mouth every eight hours as needed for nausea ondansetron (ZOFRAN) 4 mg tablet Indications: Viral illness Take 1 tablet by mouth every 8 hours as needed for nausea/vomiting for up to 5 days. 10 tablet 0 04/13/2023 04/18/2023 Active Start: 01-06-2023 End: 01-06-2023 ondansetron (ZOFRAN) 4 MG/2M L injection Comment on above: Take 1 tablet by kenzie th every 8 hours as needed for nausea/vomiting for up to 5 days. Romosozumab-Aqqg (5 sources) Start: 10-17-2024 Start: 10-17-2024 Romosozumab-Aq qg (Evenity) 210mg/2.34mL ( 105mg/1.17mLx2) syringe Active 210 mg SC EVERY MONTH 28.08 360 0 October 17, 2024 12:00am October 11, 2025 12:00am sennosides (LAXATIVE ORAL) (19 sources) sennosides (LAXA TIVE ORAL) Take by mouth. Active sennosides (LAXA TIVE ORAL) Take by mouth. 0 Active sucralfate 100 mg/ml oral suspension (20 sources) Aluminum Complex Start: 09-22-2024 End: 10-20-2024 take 1 mL by mouth at bedtime Start: 07-03-2021 End: 10-30-2021 take 1 tablet by mouth four times daily Sucralfate 1 gram tablet Discontinued 1 g PO 4 TIMES DAILY 56 14 0 July 03, 2021 12:00am October 30, 2021 11:16am Sucralfate (Carafate) 100 mg/mL suspension (5 sources) Start: 10-20-2024 take 1 mL by mouth at bedtime Sucralfate (Carafate) 100 mg/mL suspension Active 10 mL PO before meals and at bedtime 1200 1 October 20, 2024 12:00am Start: 09-22-2024 End: 10-20-2024 take 1 mL by mouth twice daily Sucralfate (Carafate) 1 00 mg/mL suspension Discontinued 10 mL PO TWICE A DAY 600 30 0 September 22, 2024 12:00am October 21, 2024 12:00am October 20, 2024 10:29am Start: 09-22-2024 take 1 mL by mouth twice daily Sucralfate (Carafate) 100 mg/mL suspension Active 10 mL PO TWICE A DAY 600 30 0 September 22, 2024 12:00am October 21, 2024 12:00am tiZANidine 4 mg oral capsule (20 sources) Central alpha-2 Adrenergic Agonist Start: 08-22-2024 take 1 capsule by mouth at bedtime as needed Start: 10-14-2020 End: 10-29-2020 take 1 tablet by mouth twice daily as needed for muscle spasms Tizanidine (Zanaflex) 2 mg Tablet Discontinued 2 mg PO TWICE A DAY as needed for Muscle Spasm October 14, 2020 12:00am October 29, 2020 11:09am Start: 10-14-2020 End: 10-29-2020 take 1 tablet by mouth at bedtime Tizanidine (Zanaflex) 4 mg Tablet Discontinued 4 mg PO AT BEDTIME October 14, 2020 12:00am October 29, 2020 11:00am muscle traZODone hydrochloride 100 mg oral tablet (20 sources) Serotonin Reuptake Inhibitor Start: 08-22-2024 End: 10-20-2024 take 1 tablet by mouth at bedtime Start: 07-27-2023 End: 08-22-2024 take 1 tablet by mouth at bedtime as needed for sleep Trazodone 50 mg tablet Discontinued 50 mg PO AT BEDTIME as needed for sleep 90 3 January 25, 2024 6:03pm August 22, 2024 10:27am Start: 10-29-2020 End: 06-06-2021 take 1 tablet by mouth at bedtime as needed Trazodone 100 mg tablet Discontinued 100 mg PO AT BEDTIME as needed for insomnia 60 2 February 25, 2021 12:54pm June 06, 2021 10:19am On Hold: Hold Start: 10-14-2020 End: 10-29-2020 take 1 tablet by mouth at bedtime as needed for sleep Trazodone (Desyrel) 50 mg Tablet Discontinued 50 mg PO AT BEDTIME as needed for Sleep October 14, 2020 12:00am October 29, 2020 11:00am vitamin e 180 mg oral capsul e (20 sources) Start: 10-14-2020 take 1 capsule by mo uth once daily take 1 capsule by mouth once sumeet ly Vitamin E, dl, acetate, (VITAMIN E) 400 unit capsule Take 400 Units by mouth once daily. Active Comment on above: Take 400 Units by mo ut once daily. 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, lymph nodes of multiple sites [id number] 200 actuat albuterol 0.09 mg/actuat metered dose inhaler (17 sources) beta2-Adrenergic Agonist Start: 12-11-2021 End: 01-06-2022 Albuterol Sulfate 90 mcg/actuation HFA aerosol inhaler Discontinued 1 - 2 NMA INHALATION EVERY 6 HOURS as needed for shortness of breath or wheezing 8.5 0 December 11, 2021 12:00am January 06, 2022 3:35pm Start: 12-11-2021 End: 01-06-2022 take 1 puff(s) by inhalation every six hours Albuterol Sulfate Discontinued 1 - 2 PUFF INHALATION EVERY 6 HOURS 8.5 December 11, 2021 12:00am January 06, 2022 3:35pm alendronic acid 70 mg oral tablet (18 sources) Bisphosphonate Start: 09-23-2021 End: 10-30-2021 take 1 tablet by mouth every week Alendronate 70 mg tablet Discontinued 70 mg PO EVERY WEEK 14 2 September 23, 2021 12:00am October 30, 2021 11:29am allopurinol 300 mg oral tablet (11 sources) Xanthine Oxidase Inhibitor Start: 01-04-2024 End: 03-08-2024 take 1 tablet by mouth once daily Allopurinol 300 mg tablet Discontinued 300 mg PO daily 30 January 04, 2024 1:00am March 08, 2024 11:46am amoxicillin 875 mg / clavulanate 125 mg oral tablet (11 sources) Penicillin-class Antibacterial Start: 10-20-2023 End: 12-09-2023 Amoxicillin-Pot Clavulanate 875-125 mg tablet Discontinued 1 {tbl} PO TWICE A DAY 20 October 20, 2023 12:00am December 09, 2023 9:42am baclofen 10 mg oral tablet (20 sources) gamma-Aminobutyric Acid-ergic Agonist Start: 01-26-2023 End: 07-27-2023 take 1 tablet by mouth twice daily as needed for muscle spasms Baclofen 10 mg tablet Discontinued 10 mg PO TWICE A DAY as needed for muscle spasm 30 May 11, 2023 2:44pm July 27, 2023 2:03pm Start: 08-13-2021 End: 10-30-2021 take 1 tablet by mouth at bedtime as needed for muscle spasms Baclofen 10 mg tablet Discontinued 10 mg PO AT BEDTIME as needed for muscle spasm 60 August 13, 2021 12:00am October 30, 2021 11:13am benzonatate 200 mg oral capsule (17 sources) Non-narcotic Antitussive Start: 12-11-2021 End: 01-06-2022 take 1 capsule by mouth three times daily as needed for cough Benzonatate 200 mg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 Abnormal weight loss,R10.13 - Epigastric pain Viral infection (20 sources) COVID-19; Translations: [Other specified viral infection] Onset: 4 Episodic Past or Other Problems Problem Classification Problem Date Documented Da te Episodic/Chronic Abdominal pain (20 sources) Generalized abdominal pain; Translations: [Epigastric pain] Onset: 1 Episodic Comment on above: Patient is 63-year-o ld female who makes consultation related to severe, refractory epigastric discomfort. She was originally referred to gastroenterology, however, she stated she wished to undergo EGD with me given our history together. She presents today for that purpose. However, she completed gastric emptying study yesterday for gastroenterology and is pending repeat CT imaging of the abdomen pelvis. Gastric emptying study was notable for some delayed gastric emptying. Patient shares associated weight loss with pain but does clarify that food does not seem to make it worse. Her abdominal exam shows some tenderness of the epigastrium, but this does not seem to be consistent with peritoneal inflammation. Based on patient's descriptions, I am most suspicious for peptic ulcer disease versus gastritis. Temp orally, this appears to be related to patient's last chemo administration. Will plan to seek input from oncology as to any known gastrointestinal effects from that treatment. For the interim have recommended to patient that she plan to return to pantoprazole (patient states that she has gone off this medication but does not know why). I also encouraged her to consider cutting out any caffeine given its inhibitory effects on the lower esophageal sphincter. I considered prescribing her a course of Reglan to act as both an antiemetic and a prokinetic, however, patient repeatedly complains about the number of medication she is presently prescribed and I am concerned about changing too many variables at once. Her history is supportive of a diagnosis of delayed gastric emptying, but I remain cautious about taking too much from this study given patient's acute symptoms and risk for a skewed result. Will plan for urgent endoscopic evaluation and further treatment plans pending that evaluation and communication with oncology and gastroenterology. Administrative/social admission (12 sources) Patient encounter status; Translations: [Counseling, unspecified] Onset: 4 01-04-2024 Episodic Allergic reactions (1 source) Allergy status to narcotic agent status; Translations: [ALLERGY STATUS NARCOTIC AGENT] Onset: 1 Episodic Bacterial infection; unspecified site (20 sources) Methicillin susceptible Staphylococcus aureus infection as the cause of diseases classified elsewhere; Translations: [Infection by methicillin sensitive Staphylococcus aureus] Onset: 1 08-27-2022 Episodic E Codes: Adverse effects of medical drugs (1 source) Adverse effect of unspecified drugs, medicaments and biological substances, initial encounter; Translations: [ADVRS EFF UNS RX MEDS BIO SUBS INIT] Onset: 1 Episodic Intestinal obstruction without hernia (1 source) Ileus, unspecified; Translations: [ILEUS UNSPECIFIED] Onset: 1 Episodic Mycoses (13 sources) Candidiasis of mouth; Translations: [Candidal stomatitis] Onset: 5 03-08-2024 Episodic Nausea and vomiting (20 sources) Nausea; Translations: [Nausea and vomiting] Onset: 1 05-12-2023 Episodic Open wounds of head; neck; and trunk (20 sources) Open wound; Translations: [Wound drainage] Onset: 3 08-25-2022 Episodic Other aftercare (1 source) Other usp (current) drug therapy; Translations: [OTH NURSE TECH CURRENT DRUG THERAPY] Onset: 1 Episodic Other circulatory disease (1 source) Hypotension, unspecified; Translations: [HYPOTENSION UNSPECIFIED] Onset: 1 Episodic Other INSTRUCTIONAL ASSISTANT infection and poliomyelitis (1 source) Intraspinal abscess and granuloma; Translations: [INTRASPINAL ABSCESS AND GRANULOMA] Onset: 1 Episodic Other connective tissue disease (6 sources) Arthrodesis status; Translations: [Arthrodesis status] Onset: 9 Episodic Other connective tissue disease (20 sources) History of fusion of thoracic spine; Translations: [Arthrodesis status] Onset: 4 09-03-2023 Episodic Other connective tissue disease (20 sources) Radial styloid tenosynovitis; Translations: [Radial styloid tenosynovitis [de Quervain]] Onset: 3 Resolved: 8 04-17-2017 Episodic Other gastrointestinal disorders (1 source) Drug-induced constipation Onset: 8 Episodic Other gastrointestinal disorders (1 source) Diarrhea, unspecified; Translations: [DIARRHEA UNSPECIFIED] Onset: 1 Episodic Other gastrointestinal disorders (1 source) Constipation, unspecified; Translations: [CONSTIPATION UNSPECIFIED] Onset: 1 Episodic Other infections; including parasitic (2 sources) Personal history of other infectious and parasitic diseases; Translations: [History of wound infection] Onset: 4 Episodic Other nervous system disorders (1 source) Other acute postprocedural pain; Translations: [OTHER ACUTE POSTPROCEDURAL PAIN] Onset: 1 Episodic Other nutritional; endocrine; and metabolic disorders (1 source) Body mass index (BMI) 19.9 or less, adult; Translations: [BODY MASS INDEX 19.9 OR LESS ADULT] Onset: 1 Episodic Other nutritional; endocrine; and metabolic disorders (13 sources) Abnormal weight loss; Translations: [Loss of weight] Onset: 5 Episodic Pathological fracture (4 sources) Pathological fracture due to osteoporosis; Translations: [Age-related osteoporosis with current pathological fracture, unspecified site, subsequent encounter for fracture with routine healing] Onset: 4 09-28-2023 Episodic Residual codes; unclassified (1 source) Acquired absence of both cervix and uterus; Translations: [ACQUIRED ABSENCE BOTH CERVIXANDUTERUS] Onset: 1 Episodic Residual codes; unclassified (1 source) Body mass index (BMI) 20.0-20.9, adult; Translations: [BODY MASS INDEX BMI 20.0-20.9 ADULT] Onset: 1 Episodic Residual codes; unclassified (1 source) Other specified postprocedural states; Translations: [OTH SPECIFIED POSTPROCEDURAL STATES] Onset: 1 Episodic Residual codes; unclassified (2 sources) Asymptomatic menopausal state; Translations: [Asymptomatic postmenopausal status] Onset: 4 Episodic Residual codes; unclassified (1 source) Insomnia, unspecified; Translations: [Insomnia, unspecified] Onset: 5 Episodic Screening and history of mental health and substance abuse codes (1 source) Personal history of nicotine dependence; Translations: [PERSONAL HISTORY OF NICOTINE DEPEND] Onset: Episodic Results Test Name Value Interpretation Reference Range Facility Urine Cultureon 12-22-2024 [facility] Normal [facility] Comment on above: Performed By: #### M 100.2200 ####[facility] [address] [place], [address] CBC W/Diff, Automatedon 12-10 Absolute Lymph 0.42 X10 3/uL Low 0.83-4.51 [facility] Comment on above: Performed By: #### L 500.4050, L100.0100, L503.6030, L504.2610, L503.6550 ####[facility] [address] [place], [address] Absolute Neut 3.3 X10 3/uL Normal 2.0-7.7 [facility] Comment on above: Performed By: #### L 500.4050, L100.0100, L503.6030, L504.2610, L503.6550 ####[facility] [address] [place], [address] Basophils/100 WBC (Bld) 0.7 % Normal 0-1 [facility] Comment on above: Performed By: #### L 500.4050, L100.0100, L503.6030, L504.2610, L503.6550 ####[facility] [address] [place], [address] Eosinophils/100 WBC (Bld) 0.7 % Normal 0-5 [facility] Comment on above: Performed By: #### L 500.4050, L100.0100, L503.6030, L504.2610, L503.6550 ####[facility] [address] [place], [address] Erythrocyte distribution width (RBC) [Ratio] 12.0 % Normal 11.6-14.6 [facility] Comment on above: Performed By: #### L 500.4050, L100.0100, L503.6030, L504.2610, L503.6550 ####[facility] [address] [place], [address] Hematocrit (Bld) [Volume fraction] 34.1 % Low 37-47 [facility] Comment on above: Performed By: #### L 500.4050, L100.0100, L503.6030, L504.2610, L503.6550 ####[facility] [address] [place], [address] Hemoglobin (Bld) [Mass/Vol] 11.9 g/dL Low 12.0-15.0 [facility] Comment on above: Performed By: #### L 500.4050, L100.0100, L503.6030, L504.2610, L503.6550 ####[facility] [address] [place], [address] IG% 2.600 High 0.0-0.9 [facility] Comment on above: Result Comment: IG% - Immature Granulocytes (promyelocytes, myelocytes andmetamyelocytes) > 1% indicates that a LEFT SHIFT is Present. Performed By: #### L 500.4050, L100.0100, L503.6030, L504.2610, L503.6550 ####[facility] [address] [place], [address] Lymphocytes/100 WBC (Bld) 9.8 % Low 19-41 [facility] Comment on above: Performed By: #### L 500.4050, L100.0100, L503.6030, L504.2610, L503.6550 ####[facility] [address] [place], [address] MCH (RBC) [Entitic mass] 33.1 pg High 27.0-32.0 [facility] Comment on above: Performed By: #### L 500.4050, L100.0100, L503.6030, L504.2610, L503.6550 ####[facility] [address] [place], [address] MCHC (RBC) [Mass/Vol] 34.9 g/dL Normal 32-36 [facility] Comment on above: Performed By: #### L 500.4050, L100.0100, L503.6030, L504.2610, L503.6550 ####[facility] [address] [place], [address] MCV (RBC) [Entitic vol] 94.7 fL Normal 81-99 [facility] Comment on above: Performed By: #### L 500.4050, L100.0100, L503.6030, L504.2610, L503.6550 ####[facility] [address] [place], [address] Monocytes/100 WBC (Bld) 9.8 % Normal 0-10 [facility] Comment on above: Performed By: #### L 500.4050, L100.0100, L503.6030, L504.2610, L503.6550 ####[facility] [address] [place], [address] Neutrophils/100 WBC (Bld) 76.4 % High 47-70 [facility] Comment on above: Performed By: #### L 500.4050, L100.0100, L503.6030, L504.2610, L503.6550 ####[facility] [address] [place], [address] Nucleated RBC (Bld) [#/Vol] 0 10*3/uL Normal 0-5 [facility] Comment on above: Performed By: #### L 500.4050, L100.0100, L503.6030, L504.2610, L503.6550 ####[facility] [address] [place], [address] Platelet mean volume (Bld) [Entitic vol] 8.9 fL Normal 6.2-12.0 [facility] Comment on above: Performed By: #### L 500.4050, L100.0100, L503.6030, L504.2610, L503.6550 ####[facility] [address] [place], [address] Platelets (Bld) [#/Vol] 213 10*3/uL Normal 150-450 [facility] Comment on above: Performed By: #### L 500.4050, L100.0100, L503.6030, L504.2610, L503.6550 ####[facility] [address] [place], [address] RBC (Bld) [#/Vol] 3.60 10*6/uL Low 4.2-5.4 [facility] Comment on above: Performed By: #### L 500.4050, L100.0100, L503.6030, L504.2610, L503.6550 ####[facility] [address] [place], [address] RDW SD 41.8 fl Normal 35.1-43.9 [facility] Comment on above: Performed By: #### L 500.4050, L100.0100, L503.6030, L504.2610, L503.6550 ####[facility] [address] [place], [address] WBC (Bld) [#/Vol] 4.3 10*3/uL Low 4.4-11.0 [facility] Comment on above: Performed By: #### L 500.4050, L100.0100, L503.6030, L504.2610, L503.6550 ####[facility] [address] [place], [address] Comprehensive Metabolic Prof ndon 12-21-2024 Albumin [Mass/Vol] 4.3 g/dL Normal 3.4-4.8 [facility] Comment on above: Performed By: #### L 500.4050, L100.0100, L503.6030, L504.2610, L503.6550 ####[facility] [address] [place], [address] Albumin/Globulin [Mass ratio] 1.8 {ratio} Normal 0.9-2.4 [facility] Comment on above: Performed By: #### L 500.4050, L100.0100, L503.6030, L504.2610, L503.6550 ####[facility] [address] [place], [address] ALK PHOS 213 U/L High 35-104 [facility] Comment on above: Performed By: #### L 500.4050, L100.0100, L503.6030, L504.2610, L503.6550 ####[facility] [address] [place], [address] ALT [Catalytic activity/Vol] 15 U/L Normal <=34 [facility] Comment on above: Performed By: #### L 500.4050, L100.0100, L503.6030, L504.2610, L503.6550 ####[facility] [address] [place], [address] AST [Catalytic activity/Vol] 22 U/L Normal <=31 [facility] Comment on above: Performed By: #### L 500.4050, L100.0100, L503.6030, L504.2610, L503.6550 ####[facility] [address] [place], [address] Bilirubin [Mass/Vol] 0.26 mg/dL Normal 0.00-1.30 [facility] Comment on above: Performed By: #### L 500.4050, L100.0100, L503.6030, L504.2610, L503.6550 ####[facility] [address] [place], [address] BUN/CRE 15.0 RATIO Normal 10-20 [facility] Comment on above: Performed By: #### L 500.4050, L100.0100, L503.6030, L504.2610, L503.6550 ####[facility] [address] [place], [address] Calcium [Mass/Vol] 9.2 mg/dL Normal 7.6-11.0 [facility] Comment on above: Performed By: #### L 500.4050, L100.0100, L503.6030, L504.2610, L503.6550 ####[facility] [address] [place], [address] Chloride [Moles/Vol] 102 mmol/L Normal 98-108 [facility] Comment on above: Performed By: #### L 500.4050, L100.0100, L503.6030, L504.2610, L503.6550 ####[facility] [address] [place], [address] CO2 [Moles/Vol] 22.2 mmol/L Normal 21.0-32.0 [facility] Comment on above: Performed By: #### L 500.4050, L100.0100, L503.6030, L504.2610, L503.6550 ####[facility] [address] [place], [address] Creatinine [Mass/Vol] 0.63 mg/dL Low 0.70-1.20 [facility] Comment on above: Performed By: #### L 500.4050, L100.0100, L503.6030, L504.2610, L503.6550 ####[facility] [address] [place], [address] ECRCL 50.36 ml/min Normal 50-250 [facility] Comment on above: Performed By: #### L 500.4050, L100.0100, L503.6030, L504.2610, L503.6550 ####[facility] [address] [place], [address] GAP 9 Normal 5-15 [facility] Comment on above: Performed By: #### L 500.4050, L100.0100, L503.6030, L504.2610, L503.6550 ####[facility] [address] [place], [address] GFR/1.73 sq M.predicted among non-blacks MDRD (S/P/Bld) [Vol rate/Area] 98 mL/min/{1.73_m2} Normal >60 [facility] Comment on above: Result Comment: mL/m in/1.73m2 CKD-EPI Creatinine Equation (2020) Performed By: #### L 500.4050, L100.0100, L503.6030, L504.2610, L503.6550 ####[facility] [address] [place], [address] Globulin (S) [Mass/Vol] 2.3 g/dL Normal 2.2-4.2 [facility] Comment on above: Performed By: #### L 500.4050, L100.0100, L503.6030, L504.2610, L503.6550 ####[facility] [address] [place], [address] Glucose [Mass/Vol] 111 mg/dL High 70-99 [facility] Comment on above: Performed By: #### L 500.4050, L100.0100, L503.6030, L504.2610, L503.6550 ####[facility] [address] [place], [address] Potassium [Moles/Vol] 4.2 mmol/L Normal 3.3-5.1 [facility] Comment on above: Performed By: #### L 500.4050, L100.0100, L503.6030, L504.2610, L503.6550 ####[facility] [address] [place], [address] Sodium [Moles/Vol] 133 mmol/L Normal 133-145 [facility] Comment on above: Performed By: #### L 500.4050, L100.0100, L503.6030, L504.2610, L503.6550 ####[facility] [address] [place], [address] T PROT 6.6 g/dL Normal 5.9-8.4 [facility] Comment on above: Performed By: #### L 500.4050, L100.0100, L503.6030, L504.2610, L503.6550 ####[facility] [address] [place], [address] Urea nitrogen [Mass/Vol] 9 mg/dL Normal 4-19 [facility] Comment on above: Performed By: #### L 500.4050, L100.0100, L503.6030, L504.2610, L503.6550 ####[facility] [address] [place], [address] Ferritinon 12-21-2024 Ferritin [Mass/Vol] 459 ng/mL High 22-378 [facility] Comment on above: Performed By: #### L 500.4050, L100.0100, L503.6030, L504.2610, L503.6550 ####[facility] [address] [place], [address] Iron+Iron Binding Capacityon 12-21-2024 Iron [Mass/Vol] 82 ug/dL Normal 50-170 [facility] Comment on above: Performed By: #### L 500.4050, L100.0100, L503.6030, L504.2610, L503.6550 ####[facility] [address] [place], [address] IRON SATURATION 33.6 Normal 13-59 [facility] Comment on above: Performed By: #### L 500.4050, L100.0100, L503.6030, L504.2610, L503.6550 ####[facility] [address] [place], [address] TIBC 243 ug/dL Low 250-450 [facility] Comment on above: Performed By: #### L 500.4050, L100.0100, L503.6030, L504.2610, L503.6550 ####[facility] [address] [place], [address] UIBC 161 ug/dL Low 228-428 [facility] Comment on above: Performed By: #### L 500.4050, L100.0100, L503.6030, L504.2610, L503.6550 ####[facility] [address] [place], [address] LDHon 12-21-2024 LDH 193 U/L Normal 84-246 [facility] Comment on above: Order Comment: 1 Performed By: #### L 500.4050, L100.0100, L503.6030, L504.2610, L503.6550 ####[facility] [address] [place], [address] Oncology Visit Reporton 12-10 Oncology Visit Report Normal [facility] Internal Medicine Office Vis iton 12-20-2024 Internal Medicine Office Visit Normal [facility] Gastroenterology Visit Repor ton 10-20-2024 Gastroenterology Visit Report Normal [facility] Internal Medicine Office Vis iton 10-17-2024 Internal Medicine Office Visit Normal [facility] Abdomen/Pelvis WITH Contrast on 10-05-2024 Abdomen/Pelvis WITH Contrast Normal [facility] EGD Reporton 09-22-2024 EGD Report Normal [facility] Immunohistochemical Stainson 09-22-2024 Immunohistochemical Stains Normal [facility] Comment on above: Performed By: #### P IMHI ####[facility] [address] [place], [address] MR/OP.PROVATon 09-22-2024 MR/OP.PROVAT Normal [facility] MR/POSTOP.ANEon 09-22-2024 MR/POSTOP.ANE Normal [facility] MR/TMXGYHSP6oy 09-22-2024 MR/POSTOPAN2 Normal [facility] MR/PAT.ANEon 09-21-2024 MR/PAT.ANE Normal [facility] Surgery Visit Reporton 09-14 Surgery Visit Report Normal [facility] Gastric Emptying Studyon Gastric Emptying Study Normal [facility] Gastroenterology Visit Repor ton 08-26-2024 Gastroenterology Visit Report Normal [facility] Internal Medicine Office Vis iton 08-22-2024 Internal Medicine Office Visit Normal [facility] Absolute lymphocyte countOrd ered By: Ernesto Jaramillo on 06-29-2024 Lymphocytes Auto (Unsp spec) [#/Vol] 0.54 10*3/uL Low 0.83-4.51 [facility] Absolute neutrophil countOrd ered By: Ernesto Jaramillo on 06-29-2024 Neutrophils (Bld) [#/Vol] 2.1 10*3/uL 2.0-7.7 [facility] Anion gap in Serum or Plasma Ordered By: Ernesto Jaramillo on 06-29-2024 Anion gap [Moles/Vol] 10 mmol/L 5-15 [facility] Automated lymphocyte count a s percentage of total leukocytesOrdered By: Ernesto Jaramillo on 06-29-2024 Lymphocytes/100 WBC Auto (Unsp spec) 17.0 % Low 19-41 [facility] BUN/creatinine ratioOrdered By: Ernesto Jaramillo on 06-29-2024 Urea nitrogen/Creatinine [Mass ratio] 18.4 mg/mg 10-20 [facility] Basophil percentageOrdered B y: Ernesto Jaramillo on 06-29-2024 Basophils/100 WBC (Bld) 0.3 % 0-1 [facility] Bilirubin, totalOrdered By: Ernesto Jaramillo on 06-29-2024 Bilirubin [Mass/Vol] 0.18 mg/dL 0.00-1.30 [facility] CBC W/Diff, Automatedon 06-10-2024 Absolute Lymph 0.54 X10 3/uL Low 0.83-4.51 [facility] Comment on above: Performed By: #### L 501.6710, L501.1400, L504.2610, L503.6030, L500.4050, L503.6550, L100.0100, L503.0106, L101.9900 ####[facility] [address] [place], [address] Absolute Neut 2.1 X10 3/uL Normal 2.0-7.7 [facility] Comment on above: Performed By: #### L 501.6710, L501.1400, L504.2610, L503.6030, L500.4050, L503.6550, L100.0100, L503.0106, L101.9900 ####[facility] [address] [place], [address] Basophils/100 WBC (Bld) 0.3 % Normal 0-1 [facility] Comment on above: Performed By: #### L 501.6710, L501.1400, L504.2610, L503.6030, L500.4050, L503.6550, L100.0100, L503.0106, L101.9900 ####[facility] [address] [place], [address] Eosinophils/100 WBC (Bld) 0.0 % Normal 0-5 [facility] Comment on above: Performed By: #### L 501.6710, L501.1400, L504.2610, L503.6030, L500.4050, L503.6550, L100.0100, L503.0106, L101.9900 ####[facility] [address] [facility] [place], [address] Erythrocyte distribution width (RBC) [Ratio] 12.9 % Normal 11.6-14.6 [facility] Comment on above: Performed By: #### L 501.6710, L501.1400, L504.2610, L503.6030, L500.4050, L503.6550, L100.0100, L503.0106, L101.9900 ####[facility] [address] [facility]. [place], [place], [id number] Hematocrit (Bld) [Volume fraction] 32.7 % Low 37-47 [facility] Comment on above: Performed By: #### L 501.6710, L501.1400, L504.2610, L503.6030, L500.4050, L503.6550, L100.0100, L503.0106, L101.9900 ####[facility] [address] [facility] [place], [address] Hemoglobin (Bld) [Mass/Vol] 11.6 g/dL Low 12.0-15.0 [facility] Comment on above: Performed By: #### L 501.6710, L501.1400, L504.2610, L503.6030, L500.4050, L503.6550, L100.0100, L503.0106, L101.9900 ####[facility] [address] [facility] [place], [address] IG% 0.600 Normal 0.0-0.9 [facility] Comment on above: Result Comment: IG% - Immature Granulocytes (promyelocytes, myelocytes andmetamyelocytes) > 1% indicates that a LEFT SHIFT is Present. Performed By: #### L 501.6710, L501.1400, L504.2610, L503.6030, L500.4050, L503.6550, L100.0100, L503.0106, L101.9900 ####[facility] [address] [place], [address] Lymphocytes/100 WBC (Bld) 17.0 % Low 19-41 [facility] Comment on above: Performed By: #### L 501.6710, L501.1400, L504.2610, L503.6030, L500.4050, L503.6550, L100.0100, L503.0106, L101.9900 ####[facility] [address] [place], [address] MCH (RBC) [Entitic mass] 34.9 pg High 27.0-32.0 [facility] Comment on above: Performed By: #### L 501.6710, L501.1400, L504.2610, L503.6030, L500.4050, L503.6550, L100.0100, L503.0106, L101.9900 ####[facility] [address], [address] MCHC (RBC) [Mass/Vol] 35.5 g/dL Normal 32-36 [facility] Comment on above: Performed By: #### L 501.6710, L501.1400, L504.2610, L503.6030, L500.4050, L503.6550, L100.0100, L503.0106, L101.9900 ####[facility] [address], [address] MCV (RBC) [Entitic vol] 98.5 fL Normal 81-99 [facility] Comment on above: Performed By: #### L 501.6710, L501.1400, L504.2610, L503.6030, L500.4050, L503.6550, L100.0100, L503.0106, L101.9900 ####[facility] [address] [place], [address] Monocytes/100 WBC (Bld) 16.4 % High 0-10 [facility] Comment on above: Performed By: #### L 501.6710, L501.1400, L504.2610, L503.6030, L500.4050, L503.6550, L100.0100, L503.0106, L101.9900 ####[facility] [address] [place], [address] Neutrophils/100 WBC (Bld) 65.7 % Normal 47-70 [facility] Comment on above: Performed By: #### L 501.6710, L501.1400, L504.2610, L503.6030, L500.4050, L503.6550, L100.0100, L503.0106, L101.9900 ####[facility] [address] [place], [place], [address] Nucleated RBC (Bld) [#/Vol] 0 10*3/uL Normal 0-5 [facility] Comment on above: Performed By: #### L 501.6710, L501.1400, L504.2610, L503.6030, L500.4050, L503.6550, L100.0100, L503.0106, L101.9900 ####[facility] [address] [place], [address] Platelet mean volume (Bld) [Entitic vol] 9.0 fL Normal 6.2-12.0 [facility] Comment on above: Performed By: #### L 501.6710, L501.1400, L504.2610, L503.6030, L500.4050, L503.6550, L100.0100, L503.0106, L101.9900 ####[facility] [address] [place], [address] Platelets (Bld) [#/Vol] 163 10*3/uL Normal 150-450 [facility] Comment on above: Performed By: #### L 501.6710, L501.1400, L504.2610, L503.6030, L500.4050, L503.6550, L100.0100, L503.0106, L101.9900 ####[facility] [address] [place], [address] RBC (Bld) [#/Vol] 3.32 10*6/uL Low 4.2-5.4 [facility] Comment on above: Performed By: #### L 501.6710, L501.1400, L504.2610, L503.6030, L500.4050, L503.6550, L100.0100, L503.0106, L101.9900 ####[facility] [address] [place], [address] RDW SD 46.0 fl High 35.1-43.9 [facility] Comment on above: Performed By: #### L 501.6710, L501.1400, L504.2610, L503.6030, L500.4050, L503.6550, L100.0100, L503.0106, L101.9900 ####[facility] [address] [place], [address] WBC (Bld) [#/Vol] 3.2 10*3/uL Low 4.4-11.0 [facility] Comment on above: Performed By: #### L 501.6710, L501.1400, L504.2610, L503.6030, L500.4050, L503.6550, L100.0100, L503.0106, L101.9900 ####[facility] [address] [place], [address] CRPon 05-21-2025 C-REACTIVE PROT < 3.00 Normal 0.0-3.0 [facility] Comment on above: Performed By: #### L 501.6710, L501.1400, L504.2610, L503.6030, L500.4050, L503.6550, L100.0100, L503.0106, L101.9900 ####[facility] [address] [place], [place], [phone] Carbon dioxide, total [Moles /volume] in Central venous bloodOrdered By: Ernesto Jaramillo on 06-29-2024 CO2 [Moles/Vol] 23.2 mmol/L 21.0-32.0 [facility] Chloride assayOrdered By: Hue Jaramillo on 06-29-2024 Chloride [Moles/Vol] 101 mmol/L 98-108 [facility] Comprehensive Metabolic Prof ilon 06-29-2024 Albumin [Mass/Vol] 4.2 g/dL Normal 3.4-4.8 [facility] Comment on above: Performed By: #### L 501.6710, L501.1400, L504.2610, L503.6030, L500.4050, L503.6550, L100.0100, L503.0106, L101.9900 ####[facility] [address] [place], [place], [phone]) Albumin/Globulin [Mass ratio] 1.8 {ratio} Normal 0.9-2.4 [facility] Comment on above: Performed By: #### L 501.6710, L501.1400, L504.2610, L503.6030, L500.4050, L503.6550, L100.0100, L503.0106, L101.9900 ####[facility] [address] [place], [address] ALK PHOS 102 U/L Normal 35-104 [facility] Comment on above: Performed By: #### L 501.6710, L501.1400, L504.2610, L503.6030, L500.4050, L503.6550, L100.0100, L503.0106, L101.9900 ####[facility] [address] [place], [place], [id number] ALT [Catalytic activity/Vol] 25 U/L Normal <=34 [facility] Comment on above: Performed By: #### L 501.6710, L501.1400, L504.2610, L503.6030, L500.4050, L503.6550, L100.0100, L503.0106, L101.9900 ####[facility] [address] [place], [place], [id number] AST [Catalytic activity/Vol] 31 U/L Normal <=31 [facility] Comment on above: Performed By: #### L 501.6710, L501.1400, L504.2610, L503.6030, L500.4050, L503.6550, L100.0100, L503.0106, L101.9900 ####[facility] [address] [place], [place], [id number] Bilirubin [Mass/Vol] 0.18 mg/dL Normal 0.00-1.30 [facility] Comment on above: Performed By: #### L 501.6710, L501.1400, L504.2610, L503.6030, L500.4050, L503.6550, L100.0100, L503.0106, L101.9900 ####[facility] [address] [place], [place], [id number] BUN/CRE 18.4 RATIO Normal 10-20 [facility] Comment on above: Performed By: #### L 501.6710, L501.1400, L504.2610, L503.6030, L500.4050, L503.6550, L100.0100, L503.0106, L101.9900 ####[facility] [address] [place], [address] Calcium [Mass/Vol] 9.5 mg/dL Normal 7.6-11.0 [facility] Comment on above: Performed By: #### L 501.6710, L501.1400, L504.2610, L503.6030, L500.4050, L503.6550, L100.0100, L503.0106, L101.9900 ####[facility] [address] [place], [address] Chloride [Moles/Vol] 101 mmol/L Normal 98-108 [facility] Comment on above: Performed By: #### L 501.6710, L501.1400, L504.2610, L503.6030, L500.4050, L503.6550, L100.0100, L503.0106, L101.9900 ####[facility] [address] [place], [address] CO2 [Moles/Vol] 23.2 mmol/L Normal 21.0-32.0 [facility] Comment on above: Performed By: #### L 501.6710, L501.1400, L504.2610, L503.6030, L500.4050, L503.6550, L100.0100, L503.0106, L101.9900 ####[facility] [address] [place], [address] Creatinine [Mass/Vol] 0.72 mg/dL Normal 0.70-1.20 [facility] Comment on above: Performed By: #### L 501.6710, L501.1400, L504.2610, L503.6030, L500.4050, L503.6550, L100.0100, L503.0106, L101.9900 ####[facility] [address] [place], [address] ECRCL 56.70 ml/min Normal 50-250 [facility] Comment on above: Performed By: #### L 501.6710, L501.1400, L504.2610, L503.6030, L500.4050, L503.6550, L100.0100, L503.0106, L101.9900 ####[facility] [address] [place], [place], [phone] GAP 10 Normal 5-15 [facility] Comment on above: Performed By: #### L 501.6710, L501.1400, L504.2610, L503.6030, L500.4050, L503.6550, L100.0100, L503.0106, L101.9900 ####[facility] [address] [place], [place], [id number] GFR/1.73 sq M.predicted among non-blacks MDRD (S/P/Bld) [Vol rate/Area] 94 mL/min/{1.73_m2} Normal >60 [facility] Comment on above: Result Comment: mL/m in/1.73m2 CKD-EPI Creatinine Equation (2020) Performed By: #### L 501.6710, L501.1400, L504.2610, L503.6030, L500.4050, L503.6550, L100.0100, L503.0106, L101.9900 ####[facility] [address] [place], [place], [id number] Globulin (S) [Mass/Vol] 2.4 g/dL Normal 2.2-4.2 [facility] Comment on above: Performed By: #### L 501.6710, L501.1400, L504.2610, L503.6030, L500.4050, L503.6550, L100.0100, L503.0106, L101.9900 ####[facility] [address] [place], [address] Glucose [Mass/Vol] 96 mg/dL Normal 70-99 [facility] Comment on above: Performed By: #### L 501.6710, L501.1400, L504.2610, L503.6030, L500.4050, L503.6550, L100.0100, L503.0106, L101.9900 ####[facility] [address] [place], [address] Potassium [Moles/Vol] 4.2 mmol/L Normal 3.3-5.1 [facility] Comment on above: Performed By: #### L 501.6710, L501.1400, L504.2610, L503.6030, L500.4050, L503.6550, L100.0100, L503.0106, L101.9900 ####[facility] [address] [place], [address] Sodium [Moles/Vol] 134 mmol/L Normal 133-145 [facility] Comment on above: Performed By: #### L 501.6710, L501.1400, L504.2610, L503.6030, L500.4050, L503.6550, L100.0100, L503.0106, L101.9900 ####[facility] [address] [place], [address] T PROT 6.6 g/dL Normal 5.9-8.4 [facility] Comment on above: Performed By: #### L 501.6710, L501.1400, L504.2610, L503.6030, L500.4050, L503.6550, L100.0100, L503.0106, L101.9900 ####[facility] [address] [place], [address] Urea nitrogen [Mass/Vol] 13 mg/dL Normal 4-19 [facility] Comment on above: Performed By: #### L 501.6710, L501.1400, L504.2610, L503.6030, L500.4050, L503.6550, L100.0100, L503.0106, L101.9900 ####[facility] [address] [place], [place], [phone] Eosinophil percentageOrdered By: Ernesto Jaramillo on 06-29-2024 Eosinophils/100 WBC (Bld) 0.0 % 0-5 [facility] Erythrocyte Sed Rateon 06-29 SED RATE 4 mm/hr Normal 0-30 [facility] Comment on above: Performed By: #### L 501.6710, L501.1400, L504.2610, L503.6030, L500.4050, L503.6550, L100.0100, L503.0106, L101.9900 ####[facility] [address] [place], [address] Erythrocyte distribution wid th ratioOrdered By: Ernesto Jaramillo on 06-29-2024 Erythrocyte distribution width (RBC) [Ratio] 12.9 % 11.6-14.6 [facility] Erythrocyte distribution wid th standard deviationOrdered By: Ernesto Jaramillo on 06-29-2024 Erythrocyte distribution width (RBC) [Ratio] 46.0 fl High 35.1-43.9 [facility] Erythrocyte sedimentation ra teOrdered By: Ernesto Jaramillo on 06-29-2024 ESR (Bld) [Velocity] 4 mm/h 0-30 [facility] Ferritinon 06-29-2024 Ferritin [Mass/Vol] 970 ng/mL High 22-378 [facility] Comment on above: Performed By: #### L 501.6710, L501.1400, L504.2610, L503.6030, L500.4050, L503.6550, L100.0100, L503.0106, L101.9900 ####[facility] [address] [place], [address] Glomerular filtration rate ( GFR) estimation/1.73 sq m using serum, plasma, or whole bOrdered By: Ernesto Jaramillo on 06-29-2024 GFR/1.73 sq M.predicted among non-blacks MDRD (S/P/Bld) [Vol rate/Area] 94 mL/min/{1.73_m2} >60 [facility] Comment on above: mL/min/1.73m2 CKD-EP I Creatinine Equation (2020) Hematocrit Auto (Bld) [Volum e fraction]Ordered By: Ernesto Jaramillo on 06-29-2024 Hematocrit (Bld) [Volume fraction] 32.7 % Low 37-47 [facility] Hemoglobin measurementOrdere d By: Ernesto Jaramillo on 06-29-2024 Hemoglobin (Bld) [Mass/Vol] 11.6 g/dL Low 12.0-15.0 [facility] Immature granulocytes/100 WB C Auto (Bld)Ordered By: [place] Sonny on 06-29-2024 Immature granulocytes/100 WBC (Bld) 0.600 % 0.0-0.9 [facility] Comment on above: IG% - Immature Granu locytes (promyelocytes, myelocytes and metamyelocytes) > 1% indicates that a LEFT SHIFT is Present. Iron measurement (mass/mass) Ordered By: Ernesto Jaramillo on 06-29-2024 Iron (Unsp spec) [Mass/Mass] 156 ug/dL 50-170 [facility] Iron+Iron Binding Capacityon 06-29-2024 Iron [Mass/Vol] 156 ug/dL Normal 50-170 [facility] Comment on above: Performed By: #### L 501.6710, L501.1400, L504.2610, L503.6030, L500.4050, L503.6550, L100.0100, L503.0106, L101.9900 ####[facility] [address] [place], [address] IRON SATURATION 56.0 Normal 13-59 [facility] Comment on above: Performed By: #### L 501.6710, L501.1400, L504.2610, L503.6030, L500.4050, L503.6550, L100.0100, L503.0106, L101.9900 ####[facility] [address] [place], [address] TIBC 278 ug/dL Normal 250-450 [facility] Comment on above: Performed By: #### L 501.6710, L501.1400, L504.2610, L503.6030, L500.4050, L503.6550, L100.0100, L503.0106, L101.9900 ####[facility] [address] [place], [address] UIBC 122 ug/dL Low 228-428 [facility] Comment on above: Performed By: #### L 501.6710, L501.1400, L504.2610, L503.6030, L500.4050, L503.6550, L100.0100, L503.0106, L101.9900 ####[facility] [address] [place], [address] LDHon 06-29-2024 LDH 201 U/L Normal 84-246 [facility] Comment on above: Order Comment: 1 Performed By: #### L 501.6710, L501.1400, L504.2610, L503.6030, L500.4050, L503.6550, L100.0100, L503.0106, L101.9900 ####[facility] [address] [place], [place], [id number] Laboratory - Chemistry and C hemistry - challengeOrdered By: Ernesto Jaramillo on 06-29-2024 AST [Catalytic activity/Vol] 31 U/L <32 [facility] Lactate dehydrogenase (LDH) measurementOrdered By: Ernesto Jaramillo on 06-29-2024 LDH [Catalytic activity/Vol] 201 U/L 84-246 [facility] MCV (mean corpuscular volume ) determinationOrdered By: Ernesto Jaramillo on 06-29-2024 MCV (RBC) [Entitic vol] 98.5 fL 81-99 [facility] Mean corpuscular hemoglobin (MCH) determinationOrdered By: Ernesto Jaramillo on 06-29-2024 MCH (RBC) [Entitic mass] 34.9 pg High 27.0-32.0 [facility] Mean corpuscular hemoglobin concentration (MCHC) determinationOrdered By: Ernesto Jaramillo on 06-29-2024 MCHC (RBC) [Mass/Vol] 35.5 g/dL 32-36 [facility] Mean platelet volume determi nationOrdered By: Ernesto Jaramillo on 06-29-2024 Platelet mean volume (Bld) [Entitic vol] 9.0 fL 6.2-12.0 [facility] Monocyte percentageOrdered B y: Ernesto Jaramillo on 06-29-2024 Monocytes/100 WBC (Bld) 16.4 % High 0-10 [facility] Neutrophil percentageOrdered By: Ernesto Jaramillo on 06-29-2024 Neutrophils/100 WBC (Bld) 65.7 % 47-70 [facility] No Panel InformationOrdered By: Ernesto Jaramillo on 06-29-2024 Unsaturated Iron Binding Capacity 122 ug/dL Low 228-428 [facility] Nucleated red blood cell per centageOrdered By: Ernesto Jaramillo on 06-29-2024 Nucleated RBC/100 WBC (Bld) [Ratio] 0 % 0-5 [facility] Oncology Visit Reporton 06-10 Oncology Visit Report Normal [facility] Platelet countOrdered By: Hue Jaramillo on 06-29-2024 Platelets (Bld) [#/Vol] 163 10*3/uL 150-450 [facility] Potassium measurement (mass/ volume)Ordered By: Ernesto Jaramillo on 06-29-2024 Potassium (Unsp spec) [Mass/Vol] 4.2 mmol/L 3.3-5.1 [facility] RBC Auto (Bld) [#/Vol]Ordere d By: Ernesto Jaramillo on 06-29-2024 RBC (Bld) [#/Vol] 3.32 10*6/uL Low 4.2-5.4 [facility] Serum creatinine measurement (mass/volume)Ordered By: Ernesto Jaramillo on 06-29-2024 Creatinine [Mass/Vol] 0.72 mg/dL 0.70-1.20 [facility] Serum globulin measurementOr dered By: Ernesto Jaramillo on 06-29-2024 Globulin (S) [Mass/Vol] 2.4 g/dL 2.2-4.2 [facility] Serum glucose measurement (m ass/volume)Ordered By: Ernesto Jaramillo on 06-29-2024 Glucose [Mass/Vol] 96 mg/dL 70-99 [facility] Serum or plasma C reactive p rotein measurement (mass/volume)Ordered By: Ernesto Jaramillo on 06-29-2024 CRP [Mass/Vol] mg/L 0.0-3.0 [facility] Serum or plasma alanine munguia otransferase (ALT) measurementOrdered By: Ernesto Jaramillo on 06-29-2024 ALT [Catalytic activity/Vol] 25 U/L <35 [facility] Serum or plasma albumin yuliet urement (mass/volume)Ordered By: Ernesto Jaramillo on 06-29-2024 Albumin [Mass/Vol] 4.2 g/dL 3.4-4.8 [facility] Serum or plasma albumin/glob ulin mass ratioOrdered By: Ernesto Jaramillo on 06-29-2024 Albumin/Globulin [Mass ratio] 1.8 {ratio} 0.9-2.4 [facility] Serum or plasma alkaline cuba sphatase measurementOrdered By: Ernesto Jaramillo on 06-29-2024 ALP [Catalytic activity/Vol] 102 U/L 35-104 [facility] Serum or plasma calcium yuliet urement (mass/volume)Ordered By: Ernesto Jaramillo on 06-29-2024 Calcium [Mass/Vol] 9.5 mg/dL 7.6-11.0 [facility] Serum or plasma ferritin bunny surement (mass/volume)Ordered By: Ernesto Jaramillo on 06-29-2024 Ferritin [Mass/Vol] 970 ng/mL High 22-378 [facility] Serum or plasma iron saturat ion measurement (mass fraction)Ordered By: Ernesto Jaramillo on 06-29-2024 Iron saturation [Mass fraction] 56.0 % 13-59 [facility] Serum or plasma urea nitroge n measurement (mass/volume)Ordered By: Ernesto Jaramillo on 06-29-2024 Urea nitrogen [Mass/Vol] 13 mg/dL 4-19 [facility] Serum or plasma uric acid me asurement (mass/volume)Ordered By: Ernesto Jaramillo on 05-21-2025 Urate [Mass/Vol] 3.4 mg/dL 2.6-6.0 [facility] Comment on above: The drugs N-Acetylcy steine and Metamizole may falsely depress this assay. Sodium levelOrdered By: Wayne Jaramillo on 06-29-2024 Sodium [Moles/Vol] 134 mmol/L 133-145 [facility] Total proteinOrdered By: Kirill Jaramillo on 06-29-2024 Protein [Mass/Vol] 6.6 g/dL 5.9-8.4 [facility] Uric Acidon 06-29-2024 URIC 3.4 mg/dL Normal 2.6-6.0 [facility] Comment on above: Result Comment: The drugs N-Acetylcysteine and Metamizole may falselydepress this assay. Performed By: #### L 501.6710, L501.1400, L504.2610, L503.6030, L500.4050, L503.6550, L100.0100, L503.0106, L101.9900 ####[facility] [address] [facility]. [place], [place], [id number] Vitamin B12on 06-29-2024 Cobalamin (Vitamin B12) [Mass/Vol] 633 pg/mL Normal 180-914 [facility] Comment on above: Performed By: #### L 501.6710, L501.1400, L504.2610, L503.6030, L500.4050, L503.6550, L100.0100, L503.0106, L101.9900 ####[facility] [address] [facility]. [place], [place], [id number] Vitamin B12 ser/plasOrdered By: Ernesto Jaramillo on 06-29-2024 Cobalamin (Vitamin B12) [Mass/Vol] 633 pg/mL 180-914 [facility] White blood cell (WBC) count Ordered By: Ernesto Jaramillo on 06-29-2024 WBC (Bld) [#/Vol] 3.2 10*3/uL Low 4.4-11.0 [facility] CBC W/Diff, Automatedon 05-11 Absolute Lymph 0.53 X10 3/uL Low 0.83-4.51 [facility] Comment on above: Performed By: #### L 100.0100, L500.4050, L501.1400 ####[facility] [address] [place], [address] Absolute Neut 1.7 X10 3/uL Low 2.0-7.7 [facility] Comment on above: Performed By: #### L 100.0100, L500.4050, L501.1400 ####[facility] [address] [place], [address] Basophils/100 WBC (Bld) 0.7 % Normal 0-1 [facility] Comment on above: Performed By: #### L 100.0100, L500.4050, L501.1400 ####[facility] [address] [place], [address] Eosinophils/100 WBC (Bld) 0.0 % Normal 0-5 [facility] Comment on above: Performed By: #### L 100.0100, L500.4050, L501.1400 ####[facility] [address] [place], [address] Erythrocyte distribution width (RBC) [Ratio] 13.2 % Normal 11.6-14.6 [facility] Comment on above: Performed By: #### L 100.0100, L500.4050, L501.1400 ####[facility] [address] [place], [address] Hematocrit (Bld) [Volume fraction] 29.2 % Low 37-47 [facility] Comment on above: Performed By: #### L 100.0100, L500.4050, L501.1400 ####[facility] [address] [place], [address] Hemoglobin (Bld) [Mass/Vol] 10.7 g/dL Low 12.0-15.0 [facility] Comment on above: Performed By: #### L 100.0100, L500.4050, L501.1400 ####[facility] [address] [place], [address] IG% 0.700 Normal 0.0-0.9 [facility] Comment on above: Result Comment: IG% - Immature Granulocytes (promyelocytes, myelocytes andmetamyelocytes) > 1% indicates that a LEFT SHIFT is Present. Performed By: #### L 100.0100, L500.4050, L501.1400 ####[facility] [address] [place], [address] Lymphocytes/100 WBC (Bld) 17.6 % Low 19-41 [facility] Comment on above: Performed By: #### L 100.0100, L500.4050, L501.1400 ####[facility] [address] [place], [address] MCH (RBC) [Entitic mass] 34.6 pg High 27.0-32.0 [facility] Comment on above: Performed By: #### L 100.0100, L500.4050, L501.1400 ####[facility] [address] [place], [address] MCHC (RBC) [Mass/Vol] 36.6 g/dL High 32-36 [facility] Comment on above: Performed By: #### L 100.0100, L500.4050, L501.1400 ####[facility] [address] [place], [address] MCV (RBC) [Entitic vol] 94.5 fL Normal 81-99 [facility] Comment on above: Performed By: #### L 100.0100, L500.4050, L501.1400 ####[facility] [address] [place], [address] Monocytes/100 WBC (Bld) 25.2 % High 0-10 [facility] Comment on above: Performed By: #### L 100.0100, L500.4050, L501.1400 ####[facility] [address] [place], [address] Neutrophils/100 WBC (Bld) 55.8 % Normal 47-70 [facility] Comment on above: Performed By: #### L 100.0100, L500.4050, L501.1400 ####[facility] [address] [place], [address] Nucleated RBC (Bld) [#/Vol] 0 10*3/uL Normal 0-5 [facility] Comment on above: Performed By: #### L 100.0100, L500.4050, L501.1400 ####[facility] [address] [place], [address] Platelet mean volume (Bld) [Entitic vol] 8.8 fL Normal 6.2-12.0 [facility] Comment on above: Performed By: #### L 100.0100, L500.4050, L501.1400 ####[facility] [address] [place], [address] Platelets (Bld) [#/Vol] 161 10*3/uL Normal 150-450 [facility] Comment on above: Performed By: #### L 100.0100, L500.4050, L501.1400 ####[facility] [address] [place], [address] RBC (Bld) [#/Vol] 3.09 10*6/uL Low 4.2-5.4 [facility] Comment on above: Performed By: #### L 100.0100, L500.4050, L501.1400 ####[facility] [address] [place], [address] RDW SD 45.1 fl High 35.1-43.9 [facility] Comment on above: Performed By: #### L 100.0100, L500.4050, L501.1400 ####[facility] [address] [place], [address] WBC (Bld) [#/Vol] 3.0 10*3/uL Low 4.4-11.0 [facility] Comment on above: Performed By: #### L 100.0100, L500.4050, L501.1400 ####[facility] [address] [place], [address] Comprehensive Metabolic Prof ilon 05-31-2024 Albumin [Mass/Vol] 4.0 g/dL Normal 3.4-4.8 [facility] Comment on above: Performed By: #### L 100.0100, L500.4050, L501.1400 ####[facility] [address] [place], [address] Albumin/Globulin [Mass ratio] 1.7 {ratio} Normal 0.9-2.4 [facility] Comment on above: Performed By: #### L 100.0100, L500.4050, L501.1400 ####[facility] [address] [place], [address] ALK PHOS 96 U/L Normal 35-104 [facility] Comment on above: Performed By: #### L 100.0100, L500.4050, L501.1400 ####[facility] [address] [place], [address] ALT [Catalytic activity/Vol] 29 U/L Normal <=34 [facility] Comment on above: Performed By: #### L 100.0100, L500.4050, L501.1400 ####[facility] [address] [place], [address] AST [Catalytic activity/Vol] 34 U/L High <=31 [facility] Comment on above: Performed By: #### L 100.0100, L500.4050, L501.1400 ####[facility] [address] [place], [address] Bilirubin [Mass/Vol] 0.22 mg/dL Normal 0.00-1.30 [facility] Comment on above: Performed By: #### L 100.0100, L500.4050, L501.1400 ####[facility] [address] [place], [address] BUN/CRE 21.8 RATIO High 10-20 [facility] Comment on above: Performed By: #### L 100.0100, L500.4050, L501.1400 ####[facility] [address] [place], [address] Calcium [Mass/Vol] 9.5 mg/dL Normal 7.6-11.0 [facility] Comment on above: Performed By: #### L 100.0100, L500.4050, L501.1400 ####[facility] [address] [place], [address] Chloride [Moles/Vol] 104 mmol/L Normal 98-108 [facility] Comment on above: Performed By: #### L 100.0100, L500.4050, L501.1400 ####[facility] [address] [place], [address] CO2 [Moles/Vol] 20.2 mmol/L Low 21.0-32.0 [facility] Comment on above: Performed By: #### L 100.0100, L500.4050, L501.1400 ####[facility] [address] [place], [address] Creatinine [Mass/Vol] 0.54 mg/dL Low 0.70-1.20 [facility] Comment on above: Performed By: #### L 100.0100, L500.4050, L501.1400 ####[facility] [address] [place], [address] ECRCL 75.60 ml/min Normal 50-250 [facility] Comment on above: Performed By: #### L 100.0100, L500.4050, L501.1400 ####[facility] [address] [place], [address] GAP 11 Normal 5-15 [facility] Comment on above: Performed By: #### L 100.0100, L500.4050, L501.1400 ####[facility] [address] [place], [address] GFR/1.73 sq M.predicted among non-blacks MDRD (S/P/Bld) [Vol rate/Area] 103 mL/min/{1.73_m2} Normal >60 [facility] Comment on above: Result Comment: mL/m in/1.73m2 CKD-EPI Creatinine Equation (2020) Performed By: #### L 100.0100, L500.4050, L501.1400 ####[facility] [address] [place], [address] Globulin (S) [Mass/Vol] 2.3 g/dL Normal 2.2-4.2 [facility] Comment on above: Performed By: #### L 100.0100, L500.4050, L501.1400 ####[facility] [address] [place], [address] Glucose [Mass/Vol] 94 mg/dL Normal 70-99 [facility] Comment on above: Performed By: #### L 100.0100, L500.4050, L501.1400 ####[facility] [facility] [address] [place], [address] Potassium [Moles/Vol] 4.1 mmol/L Normal 3.3-5.1 [facility] Comment on above: Performed By: #### L 100.0100, L500.4050, L501.1400 ####[facility] [address] [place], [address] Sodium [Moles/Vol] 135 mmol/L Normal 133-145 [facility] Comment on above: Performed By: #### L 100.0100, L500.4050, L501.1400 ####[facility] [address] [place], [address] T PROT 6.3 g/dL Normal 5.9-8.4 [facility] Comment on above: Performed By: #### L 100.0100, L500.4050, L501.1400 ####[facility] [address] [place], [address] Urea nitrogen [Mass/Vol] 12 mg/dL Normal 4-19 [facility] Comment on above: Performed By: #### L 100.0100, L500.4050, L501.1400 ####[facility] [address] [place], [address] Oncology Visit Reporton 05-11 Oncology Visit Report Normal [facility] Uric Acidon 05-31-2024 URIC 3.1 mg/dL Normal 2.6-6.0 [facility] Comment on above: Result Comment: The drugs N-Acetylcysteine and Metamizole may falselydepress this assay. Performed By: #### L 100.0100, L500.4050, L501.1400 ####[facility] [address] [place], [address] CBC W/Diff, Automatedon 04-10 Absolute Lymph 0.47 X10 3/uL Low 0.83-4.51 [facility] Comment on above: Performed By: #### L 100.0100, L500.4050, L501.1400 ####[facility] [address] [place], [address] Absolute Neut 2.4 X10 3/uL Normal 2.0-7.7 [facility] Comment on above: Performed By: #### L 100.0100, L500.4050, L501.1400 ####[facility] [address] [place], [address] Basophils/100 WBC (Bld) 0.5 % Normal 0-1 [facility] Comment on above: Performed By: #### L 100.0100, L500.4050, L501.1400 ####[facility] [address] [place], [address] Eosinophils/100 WBC (Bld) 0.5 % Normal 0-5 [facility] Comment on above: Performed By: #### L 100.0100, L500.4050, L501.1400 ####[facility] [address] [place], [address] Erythrocyte distribution width (RBC) [Ratio] 13.7 % Normal 11.6-14.6 [facility] Comment on above: Performed By: #### L 100.0100, L500.4050, L501.1400 ####[facility] [address] [place], [address] Hematocrit (Bld) [Volume fraction] 32.7 % Low 37-47 [facility] Comment on above: Performed By: #### L 100.0100, L500.4050, L501.1400 ####[facility] [address] [place], [address] Hemoglobin (Bld) [Mass/Vol] 11.7 g/dL Low 12.0-15.0 [facility] Comment on above: Performed By: #### L 100.0100, L500.4050, L501.1400 ####[facility] [address] [place], [address] IG% 0.800 Normal 0.0-0.9 [facility] Comment on above: Result Comment: IG% - Immature Granulocytes (promyelocytes, myelocytes andmetamyelocytes) > 1% indicates that a LEFT SHIFT is Present. Performed By: #### L 100.0100, L500.4050, L501.1400 ####[facility] [address] [place], [address] Lymphocytes/100 WBC (Bld) 12.3 % Low 19-41 [facility] Comment on above: Performed By: #### L 100.0100, L500.4050, L501.1400 ####[facility] [address] [place], [address] MCH (RBC) [Entitic mass] 34.3 pg High 27.0-32.0 [facility] Comment on above: Performed By: #### L 100.0100, L500.4050, L501.1400 ####[facility] [address] [place], [address] MCHC (RBC) [Mass/Vol] 35.8 g/dL Normal 32-36 [facility] Comment on above: Performed By: #### L 100.0100, L500.4050, L501.1400 ####[facility] [address] [place], [address] MCV (RBC) [Entitic vol] 95.9 fL Normal 81-99 [facility] Comment on above: Performed By: #### L 100.0100, L500.4050, L501.1400 ####[facility] [address] [place], [address] Monocytes/100 WBC (Bld) 22.3 % High 0-10 [facility] Comment on above: Performed By: #### L 100.0100, L500.4050, L501.1400 ####[facility] [address] [place], [address] Neutrophils/100 WBC (Bld) 63.6 % Normal 47-70 [facility] Comment on above: Performed By: #### L 100.0100, L500.4050, L501.1400 ####[facility] [address] [place], [address] Nucleated RBC (Bld) [#/Vol] 0 10*3/uL Normal 0-5 [facility] Comment on above: Performed By: #### L 100.0100, L500.4050, L501.1400 ####[facility] [address] [place], [address] Platelet mean volume (Bld) [Entitic vol] 8.5 fL Normal 6.2-12.0 [facility] Comment on above: Performed By: #### L 100.0100, L500.4050, L501.1400 ####[facility] [address] [place], [address] Platelets (Bld) [#/Vol] 192 10*3/uL Normal 150-450 [facility] Comment on above: Performed By: #### L 100.0100, L500.4050, L501.1400 ####[facility] [address] [place], [address] RBC (Bld) [#/Vol] 3.41 10*6/uL Low 4.2-5.4 [facility] Comment on above: Performed By: #### L 100.0100, L500.4050, L501.1400 ####[facility] [address] [place], [address] RDW SD 48.0 fl High 35.1-43.9 [facility] Comment on above: Performed By: #### L 100.0100, L500.4050, L501.1400 ####[facility] [address] [place], [address] WBC (Bld) [#/Vol] 3.8 10*3/uL Low 4.4-11.0 [facility] Comment on above: Performed By: #### L 100.0100, L500.4050, L501.1400 ####[facility] [address] [place], [address] Comprehensive Metabolic Prof ilon 05-03-2024 Albumin [Mass/Vol] 4.1 g/dL Normal 3.4-4.8 [facility] Comment on above: Performed By: #### L 100.0100, L500.4050, L501.1400 ####[facility] [address] [place], [address] Albumin/Globulin [Mass ratio] 1.7 {ratio} Normal 0.9-2.4 [facility] Comment on above: Performed By: #### L 100.0100, L500.4050, L501.1400 ####[facility] [address] [place], [address] ALK PHOS 84 U/L Normal 35-104 [facility] Comment on above: Performed By: #### L 100.0100, L500.4050, L501.1400 ####[facility] [address] [place], [address] ALT [Catalytic activity/Vol] 24 U/L Normal <=34 [facility] Comment on above: Performed By: #### L 100.0100, L500.4050, L501.1400 ####[facility] [address] [place], [address] AST [Catalytic activity/Vol] 28 U/L Normal <=31 [facility] Comment on above: Performed By: #### L 100.0100, L500.4050, L501.1400 ####[facility] [address] [place], [address] Bilirubin [Mass/Vol] 0.16 mg/dL Normal 0.00-1.30 [facility] Comment on above: Performed By: #### L 100.0100, L500.4050, L501.1400 ####[facility] [address] [place], [address] BUN/CRE 16.3 RATIO Normal 10-20 [facility] Comment on above: Performed By: #### L 100.0100, L500.4050, L501.1400 ####[facility] [address] [place], [address] Calcium [Mass/Vol] 9.5 mg/dL Normal 7.6-11.0 [facility] Comment on above: Performed By: #### L 100.0100, L500.4050, L501.1400 ####[facility] [address] [place], [address] Chloride [Moles/Vol] 102 mmol/L Normal 98-108 [facility] Comment on above: Performed By: #### L 100.0100, L500.4050, L501.1400 ####[facility] [address] [place], [address] CO2 [Moles/Vol] 21.3 mmol/L Normal 21.0-32.0 [facility] Comment on above: Performed By: #### L 100.0100, L500.4050, L501.1400 ####[facility] [address] [place], [address] Creatinine [Mass/Vol] 0.71 mg/dL Normal 0.70-1.20 [facility] Comment on above: Performed By: #### L 100.0100, L500.4050, L501.1400 ####[facility] [address] [place], [address] ECRCL 57.50 ml/min Normal 50-250 [facility] Comment on above: Performed By: #### L 100.0100, L500.4050, L501.1400 ####[facility] [address] [place], [address] GAP 10 Normal 5-15 [facility] Comment on above: Performed By: #### L 100.0100, L500.4050, L501.1400 ####[facility] [address] [place], [address] GFR/1.73 sq M.predicted among non-blacks MDRD (S/P/Bld) [Vol rate/Area] 96 mL/min/{1.73_m2} Normal >60 [facility] Comment on above: Result Comment: mL/m in/1.73m2 CKD-EPI Creatinine Equation (2020) Performed By: #### L 100.0100, L500.4050, L501.1400 ####[facility] [address] [place], [address] Globulin (S) [Mass/Vol] 2.4 g/dL Normal 2.2-4.2 [facility] Comment on above: Performed By: #### L 100.0100, L500.4050, L501.1400 ####[facility] [address] [place], [address] Glucose [Mass/Vol] 100 mg/dL High 70-99 [facility] Comment on above: Performed By: #### L 100.0100, L500.4050, L501.1400 ####[facility] [address] [place], [address] Potassium [Moles/Vol] 4.4 mmol/L Normal 3.3-5.1 [facility] Comment on above: Performed By: #### L 100.0100, L500.4050, L501.1400 ####[facility] [address] [place], [address] Sodium [Moles/Vol] 133 mmol/L Normal 133-145 [facility] Comment on above: Performed By: #### L 100.0100, L500.4050, L501.1400 ####[facility] [address] [place], [address] T PROT 6.5 g/dL Normal 5.9-8.4 [facility] Comment on above: Performed By: #### L 100.0100, L500.4050, L501.1400 ####[facility] [address] [place], [address] Urea nitrogen [Mass/Vol] 12 mg/dL Normal 4-19 [facility] Comment on above: Performed By: #### L 100.0100, L500.4050, L501.1400 ####[facility] [address] [place], [address] Oncology Visit Reporton 04-10 Oncology Visit Report Normal [facility] Uric Acidon 05-03-2024 URIC 3.6 mg/dL Normal 2.6-6.0 [facility] Comment on above: Result Comment: The drugs N-Acetylcysteine and Metamizole may falselydepress this assay. Performed By: #### L 100.0100, L500.4050, L501.1400 ####[facility] [address] [place], [address] CBC W/Diff, Automatedon 03-13 Absolute Lymph 1.01 X10 3/uL Normal 0.83-4.51 [facility] Comment on above: Order Comment: UTO F ROM PORT Performed By: #### L 500.4050, L100.0100 ####[facility] [address] [place], [address] Absolute Neut 2.8 X10 3/uL Normal 2.0-7.7 [facility] Comment on above: Order Comment: UTO F ROM PORT Performed By: #### L 500.4050, L100.0100 ####[facility] [address] [place], [address] Basophils/100 WBC (Bld) 0.5 % Normal 0-1 [facility] Comment on above: Order Comment: UTO F ROM PORT Performed By: #### L 500.4050, L100.0100 ####[facility] [address] [place], [address] Eosinophils/100 WBC (Bld) 0.2 % Normal 0-5 [facility] Comment on above: Order Comment: UTO F ROM PORT Performed By: #### L 500.4050, L100.0100 ####[facility] [address] [place], [address] Erythrocyte distribution width (RBC) [Ratio] 14.4 % Normal 11.6-14.6 [facility] Comment on above: Order Comment: UTO F ROM PORT Performed By: #### L 500.4050, L100.0100 ####[facility] [address] [place], [address] Hematocrit (Bld) [Volume fraction] 36.1 % Low 37-47 [facility] Comment on above: Order Comment: UTO F ROM PORT Performed By: #### L 500.4050, L100.0100 ####[facility] [address] [place], [address] Hemoglobin (Bld) [Mass/Vol] 12.7 g/dL Normal 12.0-15.0 [facility] Comment on above: Order Comment: UTO F ROM PORT Performed By: #### L 500.4050, L100.0100 ####[facility] [address] [place], [address] IG% 0.900 Normal 0.0-0.9 [facility] Comment on above: Order Comment: UTO F ROM PORT Result Comment: IG% - Immature Granulocytes (promyelocytes, myelocytes andmetamyelocytes) > 1% indicates that a LEFT SHIFT is Present. Performed By: #### L 500.4050, L100.0100 ####[facility] [address] [place], [address] Lymphocytes/100 WBC (Bld) 22.7 % Normal 19-41 [facility] Comment on above: Order Comment: UTO F ROM PORT Performed By: #### L 500.4050, L100.0100 ####[facility] [address] [place], [address] MCH (RBC) [Entitic mass] 33.4 pg High 27.0-32.0 [facility] Comment on above: Order Comment: UTO F ROM PORT Performed By: #### L 500.4050, L100.0100 ####[facility] [address] [place], [address] MCHC (RBC) [Mass/Vol] 35.2 g/dL Normal 32-36 [facility] Comment on above: Order Comment: UTO F ROM PORT Performed By: #### L 500.4050, L100.0100 ####[facility] [address] [place], [address] MCV (RBC) [Entitic vol] 95.0 fL Normal 81-99 [facility] Comment on above: Order Comment: UTO F ROM PORT Performed By: #### L 500.4050, L100.0100 ####[facility] [address] [place], [address] Monocytes/100 WBC (Bld) 13.7 % High 0-10 [facility] Comment on above: Order Comment: UTO F ROM PORT Performed By: #### L 500.4050, L100.0100 ####[facility] [address] [place], [address] Neutrophils/100 WBC (Bld) 62.0 % Normal 47-70 [facility] Comment on above: Order Comment: UTO F ROM PORT Performed By: #### L 500.4050, L100.0100 ####[facility] [address] [place], [address] Nucleated RBC (Bld) [#/Vol] 0 10*3/uL Normal 0-5 [facility] Comment on above: Order Comment: UTO F ROM PORT Performed By: #### L 500.4050, L100.0100 ####[facility] [address] [place], [address] Platelet mean volume (Bld) [Entitic vol] 8.6 fL Normal 6.2-12.0 [facility] Comment on above: Order Comment: UTO F ROM PORT Performed By: #### L 500.4050, L100.0100 ####[facility] [address] [place], [address] Platelets (Bld) [#/Vol] 170 10*3/uL Normal 150-450 [facility] Comment on above: Order Comment: UTO F ROM PORT Performed By: #### L 500.4050, L100.0100 ####[facility] [address] [place], [address] RBC (Bld) [#/Vol] 3.80 10*6/uL Low 4.2-5.4 [facility] Comment on above: Order Comment: UTO F ROM PORT Performed By: #### L 500.4050, L100.0100 ####[facility] [address] [place], [address] RDW SD 50.0 fl High 35.1-43.9 [facility] Comment on above: Order Comment: UTO F ROM PORT Performed By: #### L 500.4050, L100.0100 ####[facility] [address] [place], [address] WBC (Bld) [#/Vol] 4.4 10*3/uL Normal 4.4-11.0 [facility] Comment on above: Order Comment: UTO F ROM PORT Performed By: #### L 500.4050, L100.0100 ####[facility] [address] [place], [address] Comprehensive Metabolic Prof ilon 04-05-2024 ALK PHOS 87 U/L Normal 35-104 [facility] Comment on above: Result Comment: AMENDED REPORT 04/05/241558 ALK P previously reported as: 88 U/L Performed By: #### L 500.4050 ####[facility] [address] [place], [address] ALT [Catalytic activity/Vol] 63 U/L High <=34 [facility] Comment on above: Result Comment: AMENDED REPORT 04/05/241558 ALT previously reported as: 58 H U/L Performed By: #### L 500.4050 ####[facility] [address] [place], [address] AST [Catalytic activity/Vol] 33 U/L High <=31 [facility] Comment on above: Result Comment: AMENDED REPORT 04/05/241558 AST previously reported as: 31 U/L Performed By: #### L 500.4050 ####[facility] [address] [place], [address] BUN/CRE 20.9 RATIO High 10-20 [facility] Comment on above: Result Comment: AMENDED REPORT 04/05/241558 BUN/CRE previously reported as: 21.8 H RATIO Performed By: #### L 500.4050 ####[facility] [address] [place], [address] Glucose [Mass/Vol] 86 mg/dL Normal 70-99 [facility] Comment on above: Result Comment: AMENDED REPORT 02/25/25 1559 GLU previously reported as: 88 mg/dL Performed By: #### L 500.4050 ####[facility] [address] [place], [address] T PROT 6.9 g/dL Normal 5.9-8.4 [facility] Comment on above: Result Comment: AMENDED REPORT 04/05/24 1199 T PROT previously reported as: 6.8 g/dL Performed By: #### L 500.4050 ####[facility] [address] [place], [address] ALB Normal 3.2-5.0 [facility] Comment on above: Order Comment: UTO F ROM PORT Result Comment: WILL REORDER Performed By: #### L 500.4050, L100.0100 ####[facility] [address] [place], [address] ALK PHOS Normal 45-117 [facility] Comment on above: Order Comment: UTO F ROM PORT Result Comment: WILL REORDER Performed By: #### L 500.4050, L100.0100 ####[facility] [address] [place], [address] ALT Normal 13-56 [facility] Comment on above: Order Comment: UTO F ROM PORT Result Comment: WILL REORDER Performed By: #### L 500.4050, L100.0100 ####[facility] [address] [place], [address] AST Normal 15-37 [facility] Comment on above: Order Comment: UTO F ROM PORT Result Comment: WILL REORDER Performed By: #### L 500.4050, L100.0100 ####[facility] [address] [place], [address] BUN Normal 7-18 [facility] Comment on above: Order Comment: UTO F ROM PORT Result Comment: WILL REORDER Performed By: #### L 500.4050, L100.0100 ####[facility] [address] [place], [address] BUN/CRE Normal 10-20 [facility] Comment on above: Order Comment: UTO F ROM PORT Result Comment: WILL REORDER Performed By: #### L 500.4050, L100.0100 ####[facility] [address] [place], [address] CA,Total Normal 8.5-10.1 [facility] Comment on above: Order Comment: UTO F ROM PORT Result Comment: WILL REORDER Performed By: #### L 500.4050, L100.0100 ####[facility] [address] [place], [address] CL Normal 98-107 [facility] Comment on above: Order Comment: UTO F ROM PORT Result Comment: WILL REORDER Performed By: #### L 500.4050, L100.0100 ####[facility] [address] [place], [address] CO2 Normal 21.0-32.0 [facility] Comment on above: Order Comment: UTO F ROM PORT Result Comment: WILL REORDER Performed By: #### L 500.4050, L100.0100 ####[facility] [address] [place], [address] CREAT,SERUM Normal 0.55-1.02 [facility] Comment on above: Order Comment: UTO F ROM PORT Result Comment: WILL REORDER Performed By: #### L 500.4050, L100.0100 ####[facility] [address] [place], [address] eGFR Normal >60 [facility] Comment on above: Order Comment: UTO F ROM PORT Result Comment: WILL REORDER Performed By: #### L 500.4050, L100.0100 ####[facility] [address] [place], [address] EST GFR - AA Normal >60 [facility] Comment on above: Order Comment: UTO F ROM PORT Result Comment: WILL REORDER Performed By: #### L 500.4050, L100.0100 ####[facility] [address] [place], [address] GAP Normal 5-15 [facility] Comment on above: Order Comment: UTO F ROM PORT Result Comment: WILL REORDER Performed By: #### L 500.4050, L100.0100 ####[facility] [address] [place], [address] GLU Normal 74-106 [facility] Comment on above: Order Comment: UTO F ROM PORT Result Comment: WILL REORDER Performed By: #### L 500.4050, L100.0100 ####[facility] [address] [place], [address] Potassium Normal 3.5-5.1 [facility] Comment on above: Order Comment: UTO F ROM PORT Result Comment: WILL REORDER Performed By: #### L 500.4050, L100.0100 ####[facility] [address] [place], [address] T BILI Normal 0.20-1.00 [facility] Comment on above: Order Comment: UTO F ROM PORT Result Comment: WILL REORDER Performed By: #### L 500.4050, L100.0100 ####[facility] [address] [place], [address] T PROT Normal 6.4-8.2 [facility] Comment on above: Order Comment: UTO F ROM PORT Result Comment: WILL REORDER Performed By: #### L 500.4050, L100.0100 ####[facility] [address] [place], [address] Comprehensive Metabolic Profil Normal 136-145 [facility] Comment on above: Order Comment: UTO F ROM PORT Result Comment: WILL REORDER Performed By: #### L 500.4050, L100.0100 ####[facility] [address] [place], [place], [address] Oncology Visit Reporton 03-13 Oncology Visit Report Normal [facility] Uric Acidon 04-05-2024 URIC 2.6 mg/dL Normal 2.6-6.0 [facility] Comment on above: Result Comment: The drugs N-Acetylcysteine and Metamizole may falselydepress this assay. Performed By: #### L 501.1400 ####[facility] [address] [place], [place], [address] [facility] -------- MARY VALIENTE ([id number]) 1960 [facility] Date Time Provider Department 04/04/24 [place] During your visit today, we recorded the following information about you: Robyn Singh 04/04/2024 11:12 AM Signed ----- Message from Maria Isabel Kemp sent at 04/04/2024 10:22 AM EST ----- Regarding: Endo/Adriano/Follow Up Appointment Question Endo/Adriano/Follow Up Appointment Question Patient: Mary Cunha Rocco Date of : 1960 Primary Care Provider: Jerrica Marshall MD Patient has been identified by name and Date of (Y/N): Y Patient: Mary Valiente Date of : 1960 Provider for this encounter: Kayla Oh Reason for the call/escalation: Pt said that Valorie was supposed to call pt last regarding a medication for osteoporosis. Valorie was supposed to reach out to pt's oncologist to see if pt is able to take it. Pt has a treatment on Thursday04/05/24. After I hung up with patient, received a call from [facility] regarding same issue. office will send imaging reports, last office note, and latest blood work results. Office wants to know if they should push the imaging to [facility]. Please call Anais at the [facility] first before calling patient. Was Patient Referred to [facility]/Seek Emergency Treatment (Y/N): na Did Patient Agree (Y/N): na Was An Attempt Made To Transfer The Patient To The Office (Y/N): na Were You Able To Reach Someone At The Office (Y/N): na If Yes - Patient Was Transferred To (Caregivers Name): na If No - Which [facility] Leadership [place] Technician Did You Speak With Regarding This Patient: na Was an appointment scheduled (Y/N): na Reason patient was requesting visit (RFV/signs and symptoms/diagnosis) : follow up Person calling if other than patient: pt/ Anais for [facility] Return call to if other than patient: pt Best contact number: [phone]/ [phone] Thank you, Maria Isabel Bowen April 04, 2024 10:22 AM Robyn Singh 04/04/2024 11:12 AM Signed Please see call center message and advise patient. Robyn Singh April 04, 2024 11:12 AM Valorie Oh APRN.THEODORA 04/04/2024 12:36 PM Signed Called the [facility], to speak with nurse Anais, no answer left a detailed VM, including the office phone number for return call. Valorie Oh, MSN, AGP-MANAGER [facility]ICU [facility] End[facility]ology - Ashleigh Jerez 04/05/2024 2:26 PM Signed Misty from [facility] returned call re: Valorie's question. She said she spoke with [employer] MACHINE OPERATOR Pao Lewis, she said there are no drug to drug interactions with Evenity but if it's not urgent she can start Evenity after completing 6 cycles of bendeka and rituximab which is approximately the end of May. She said to call back with any other questions. [phone] Ashleigh Baig April 05, 2024 2:26 PM Allergies As of Date: 04/04/2024 Noted Allergy Reaction BEE STING 06/21/2012 7 - Swelling CODEINE 06/21/2012 4 - Hives 8 - GI Upset HYDROCODONE-ACETAMINOPHE N 06/21/2012 11 - Vomiting Date Reviewed: 03/28/2024 Reviewed by: Renee Anton - Fully Assessed Prescriptions as of 04/05/2024 - calcium Carbonate 300 mg, 750mg, (TUMS) 300 mg (750 mg) chewable tablet Take 1 tablet by mouth once daily. - gabapentin (NEURONTIN) 300 mg capsule Take 300 mg by mouth two times a day. - traZODone (DESYREL) 50 mg tablet - sennosides (LAXATIVE ORAL) Take by mouth. - oxyCODONE-acetaminophen (PERCOCET) 5-325 mg tablet - baclofen 10 mg tablet - sulfamethoxazole-trimeth oprim (BACTRIM DS) 800-160 mg per tablet Take 1 tablet by mouth once daily. - Ascorbic Acid (VITAMIN C) 100 mg tablet Take 100 mg by mouth once daily. - Vitamin E, dl, acetate, (VITAMIN E) 400 unit capsule Take 400 Units by mouth once daily. - lysine 500 mg tab 500 mg. - mirtazapine (REMERON) 30 mg tablet Take 30 mg by mouth daily at bedtime. - cyanocobalamin 1,000 mcg Tab Take 1 tablet by mouth once daily. - Cholecalciferol, Vitamin D3, 5,000 unit cap Take 2,000 Units by mouth once daily. 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 (more content not included)... Normal [facility] Abdomen/Pelvis W IV Cont ONL Yon 03-30-2024 Abdomen/Pelvis W IV Cont ONLY Normal [facility] Absolute lymphocyte countOrd ered By: Codyingrid Turner on 03-30-2024 Lymphocytes Auto (Unsp spec) [#/Vol] 0.89 10*3/uL 0.83-4.51 [facility] Absolute neutrophil countOrd ered By: Cody Turner on 03-30-2024 Neutrophils (Bld) [#/Vol] 1.8 10*3/uL Low 2.0-7.7 [facility] Albumin to globulin ratioOrd ered By: Codyingrid Turner on 03-30-2024 Albumin/Globulin [Mass ratio] 1.1 {ratio} 0.9-2.4 [facility] Automated lymphocyte count a s percentage of total leukocytesOrdered By: Codyingrid Turner on 03-30-2024 Lymphocytes/100 WBC Auto (Unsp spec) 25.9 % 19-41 [facility] Basophil percentageOrdered B y: Codyingrid Turner on 03-30-2024 Basophils/100 WBC (Bld) 0.9 % 0-1 [facility] Bilirubin, totalOrdered By: Codyingrid Turner on 03-30-2024 Bilirubin [Mass/Vol] 0.30 mg/dL 0.20-1.00 [facility] Comment on above: For patients on eltr ombopag therapy, use of Dimension [place] TBIL is not recommended. Blood urea nitrogen (BUN)/cr eatinine ratioOrdered By: Codyingrid Turner on 03-30-2024 Urea nitrogen/Creatinine [Mass ratio] 20.0 mg/mg 10-20 [facility] CBC W/Diff, Automatedon 03-12 Absolute Lymph 0.89 X10 3/uL Normal 0.83-4.51 [facility] Comment on above: Performed By: #### L 501.2450, L500.4050, L100.0100 ####[facility] [address] [place], [address] Absolute Neut 1.8 X10 3/uL Low 2.0-7.7 [facility] Comment on above: Performed By: #### L 501.2450, L500.4050, L100.0100 ####[facility] [address] [place], [address] Basophils/100 WBC (Bld) 0.9 % Normal 0-1 [facility] Comment on above: Performed By: #### L 501.2450, L500.4050, L100.0100 ####[facility] [address] [place], [address] Eosinophils/100 WBC (Bld) 0.0 % Normal 0-5 [facility] Comment on above: Performed By: #### L 501.2450, L500.4050, L100.0100 ####[facility] [address] [place], [address] Erythrocyte distribution width (RBC) [Ratio] 14.5 % Normal 11.6-14.6 [facility] Comment on above: Performed By: #### L 501.2450, L500.4050, L100.0100 ####[facility] [address] [place], [address] Hematocrit (Bld) [Volume fraction] 32.9 % Low 37-47 [facility] Comment on above: Performed By: #### L 501.2450, L500.4050, L100.0100 ####[facility] [address] [place], [address] Hemoglobin (Bld) [Mass/Vol] 11.6 g/dL Low 12.0-15.0 [facility] Comment on above: Performed By: #### L 501.2450, L500.4050, L100.0100 ####[facility] [address] [place], [address] IG% 1.200 High 0.0-0.9 [facility] Comment on above: Result Comment: IG% - Immature Granulocytes (promyelocytes, myelocytes andmetamyelocytes) > 1% indicates that a LEFT SHIFT is Present. Performed By: #### L 501.2450, L500.4050, L100.0100 ####[facility] [address] [place], [address] Lymphocytes/100 WBC (Bld) 25.9 % Normal 19-41 [facility] Comment on above: Performed By: #### L 501.2450, L500.4050, L100.0100 ####[facility] [address] [place], [address] MCH (RBC) [Entitic mass] 32.8 pg High 27.0-32.0 [facility] Comment on above: Performed By: #### L 501.2450, L500.4050, L100.0100 ####[facility] [address] [place], [address] MCHC (RBC) [Mass/Vol] 35.3 g/dL Normal 32-36 [facility] Comment on above: Performed By: #### L 501.2450, L500.4050, L100.0100 ####[facility] [address] [place], [address] MCV (RBC) [Entitic vol] 92.9 fL Normal 81-99 [facility] Comment on above: Performed By: #### L 501.2450, L500.4050, L100.0100 ####[facility] [address] [place], [address] Monocytes/100 WBC (Bld) 18.6 % High 0-10 [facility] Comment on above: Performed By: #### L 501.2450, L500.4050, L100.0100 ####[facility] [address] [place], [address] Neutrophils/100 WBC (Bld) 53.4 % Normal 47-70 [facility] Comment on above: Performed By: #### L 501.2450, L500.4050, L100.0100 ####[facility] [address] [place], [address] Nucleated RBC (Bld) [#/Vol] 0 10*3/uL Normal 0-5 [facility] Comment on above: Performed By: #### L 501.2450, L500.4050, L100.0100 ####[facility] [address] [place], [address] Platelet mean volume (Bld) [Entitic vol] 8.2 fL Normal 6.2-12.0 [facility] Comment on above: Performed By: #### L 501.2450, L500.4050, L100.0100 ####[facility] [address] [place], [address] Platelets (Bld) [#/Vol] 186 10*3/uL Normal 150-450 [facility] Comment on above: Performed By: #### L 501.2450, L500.4050, L100.0100 ####[facility] [address] [place], [address] RBC (Bld) [#/Vol] 3.54 10*6/uL Low 4.2-5.4 [facility] Comment on above: Performed By: #### L 501.2450, L500.4050, L100.0100 ####[facility] [address] [place], [address] RDW SD 49.6 fl High 35.1-43.9 [facility] Comment on above: Performed By: #### L 501.2450, L500.4050, L100.0100 ####[facility] [address] [place], [address] WBC (Bld) [#/Vol] 3.4 10*3/uL Low 4.4-11.0 [facility] Comment on above: Performed By: #### L 501.2450, L500.4050, L100.0100 ####[facility] [address] [place], [address] Carbon dioxide measurementOr dered By: Cody Turner on 03-30-2024 CO2 [Moles/Vol] 23.0 mmol/L 21.0-32.0 [facility] Chloride measurementOrdered By: Cody Turner on 03-30-2024 Chloride [Moles/Vol] 104 mmol/L 98-107 [facility] Comprehensive Metabolic Prof ilon 03-30-2024 Albumin [Mass/Vol] 3.3 g/dL Normal 3.2-5.0 [facility] Comment on above: Performed By: #### L 501.2450, L500.4050, L100.0100 ####[facility] [address] [place], [address] Albumin/Globulin [Mass ratio] 1.1 {ratio} Normal 0.9-2.4 [facility] Comment on above: Performed By: #### L 501.2450, L500.4050, L100.0100 ####[facility] [address] [place], [address] ALK P 72 U/L Normal 45-117 [facility] Comment on above: Performed By: #### L 501.2450, L500.4050, L100.0100 ####[facility] [address] [place], [address] ALT [Catalytic activity/Vol] 43 U/L Normal 13-56 [facility] Comment on above: Performed By: #### L 501.2450, L500.4050, L100.0100 ####[facility] [address] [place], [address] AST [Catalytic activity/Vol] 30 U/L Normal 15-37 [facility] Comment on above: Performed By: #### L 501.2450, L500.4050, L100.0100 ####[facility] [address] [place], [address] Bilirubin [Mass/Vol] 0.30 mg/dL Normal 0.20-1.00 [facility] Comment on above: Result Comment: For patients on eltrombopag therapy, use of Dimension [place] TBIL is not recommended. Performed By: #### L 501.2450, L500.4050, L100.0100 ####[facility] [address] [place], [address] BUN/CRE 20.0 RATIO Normal 10-20 [facility] Comment on above: Performed By: #### L 501.2450, L500.4050, L100.0100 ####[facility] [address] [place], [address] CA,Total 9.5 mg/dL Normal 8.5-10.1 [facility] Comment on above: Performed By: #### L 501.2450, L500.4050, L100.0100 ####[facility] [address] [place], [address] Chloride [Moles/Vol] 104 mmol/L Normal 98-107 [facility] Comment on above: Performed By: #### L 501.2450, L500.4050, L100.0100 ####[facility] [address] [place], [address] CO2 [Moles/Vol] 23.0 mmol/L Normal 21.0-32.0 [facility] Comment on above: Performed By: #### L 501.2450, L500.4050, L100.0100 ####[facility] [address] [place], [address] Creatinine [Mass/Vol] 0.65 mg/dL Normal 0.55-1.02 [facility] Comment on above: Result Comment: The validity of the calculated GFR GFRAA in patients over70 years has not been determined. Clinical correlation isessential. Performed By: #### L 501.2450, L500.4050, L100.0100 ####[facility] [address] [place], [address] ECRCL 62.81 ml/min Normal [facility] Comment on above: Performed By: #### L 501.2450, L500.4050, L100.0100 ####[facility] [address] [place], [address] EST GFR - AA 118 mL/min Normal >60 [facility] Comment on above: Result Comment: Afri can Dominican GFR Calc Performed By: #### L 501.2450, L500.4050, L100.0100 ####[facility] [address] [place], [address] GAP 8 Normal 5-15 [facility] Comment on above: Performed By: #### L 501.2450, L500.4050, L100.0100 ####[facility] [address] [place], [address] GFR/1.73 sq M.predicted among non-blacks MDRD (S/P/Bld) [Vol rate/Area] 98 mL/min/{1.73_m2} Normal >60 [facility] Comment on above: Result Comment: Non- GFR Calc Performed By: #### L 501.2450, L500.4050, L100.0100 ####[facility] [address] [place], [address] Globulin (S) [Mass/Vol] 3.1 g/dL Normal 2.2-4.2 [facility] Comment on above: Performed By: #### L 501.2450, L500.4050, L100.0100 ####[facility] [address] [place], [address] Glucose [Mass/Vol] 103 mg/dL Normal 74-106 [facility] Comment on above: Result Comment: Fast ing Glucose result from 100 to 125 mg/dLsuggests IMPAIRED HOMEOSTASIS per A.D.A. criteria. Performed By: #### L 501.2450, L500.4050, L100.0100 ####[facility] [address] [place], [address] Potassium [Moles/Vol] 3.5 mmol/L Normal 3.5-5.1 [facility] Comment on above: Performed By: #### L 501.2450, L500.4050, L100.0100 ####[facility] [address] [place], [address] Sodium [Moles/Vol] 135 mmol/L Low 136-145 [facility] Comment on above: Performed By: #### L 501.2450, L500.4050, L100.0100 ####[facility] [address] [place], [address] T PROT 6.4 g/dL Normal 6.4-8.2 [facility] Comment on above: Performed By: #### L 501.2450, L500.4050, L100.0100 ####[facility] [address] [place], [address] Urea nitrogen [Mass/Vol] 13 mg/dL Normal 7-18 [facility] Comment on above: Performed By: #### L 501.2450, L500.4050, L100.0100 ####[facility] [address] [place], [address] Emergency Department Summary on 03-30-2024 Emergency Department Summary Normal [facility] Eosinophil percentageOrdered By: Codyingrid Turner on 03-30-2024 Eosinophils/100 WBC (Bld) 0.0 % 0-5 [facility] Erythrocyte distribution wid th ratioOrdered By: Cody Turner on 03-30-2024 Erythrocyte distribution width (RBC) [Ratio] 14.5 % 11.6-14.6 [facility] Erythrocyte distribution wid th standard deviationOrdered By: Codyingrid Turner on 03-30-2024 Erythrocyte distribution width (RBC) [Ratio] 49.6 fl High 35.1-43.9 [facility] Glomerular filtration rate ( GFR) estimationOrdered By: Codyingrid Turner on 03-30-2024 GFR/1.73 sq M.predicted among non-blacks MDRD (S/P/Bld) [Vol rate/Area] 98 mL/min/{1.73_m2} >60 [facility] Comment on above: Non- GFR Calc Glucose measurementOrdered B y: Cody Turner on 03-30-2024 Glucose [Mass/Vol] 103 mg/dL 74-106 [facility] Comment on above: Fasting Glucose resu lt from 100 to 125 mg/dL suggests IMPAIRED HOMEOSTASIS per A.D.A. criteria. Hematocrit Auto (Bld) [Volum e fraction]Ordered By: Codyingrid Turner on 03-30-2024 Hematocrit (Bld) [Volume fraction] 32.9 % Low 37-47 [facility] Hemoglobin measurementOrdere d By: Coydingrid Turner on 03-30-2024 Hemoglobin (Bld) [Mass/Vol] 11.6 g/dL Low 12.0-15.0 [facility] Immature granulocytes/100 WB C Auto (Bld)Ordered By: Codyingrid Turner on 03-30-2024 Immature granulocytes/100 WBC (Bld) 1.200 % High 0.0-0.9 [facility] Comment on above: IG% - Immature Granu locytes (promyelocytes, myelocytes and metamyelocytes) > 1% indicates that a LEFT SHIFT is Present. Laboratory - Chemistry and C hemistry - challengeOrdered By: Cody Turner on 03-30-2024 AST [Catalytic activity/Vol] 30 U/L 15-37 [facility] Lipaseon 03-30-2024 Lipase [Catalytic activity/Vol] 38 U/L Low 73-393 [facility] Comment on above: Performed By: #### L 501.2450, L500.4050, L100.0100 ####[facility] [address] [place], [address] Lipase measurementOrdered By : Cody Turner on 03-30-2024 Lipase [Catalytic activity/Vol] 38 U/L Low 73-393 [facility] MCV (mean corpuscular volume ) determinationOrdered By: Cody Turner on 03-30-2024 MCV (RBC) [Entitic vol] 92.9 fL 81-99 [facility] Mean corpuscular hemoglobin (MCH) determinationOrdered By: Codyingrid Turner on 03-30-2024 MCH (RBC) [Entitic mass] 32.8 pg High 27.0-32.0 [facility] Mean corpuscular hemoglobin concentration (MCHC) determinationOrdered By: Codyingrid Turner on 03-30-2024 MCHC (RBC) [Mass/Vol] 35.3 g/dL 32-36 [facility] Mean platelet volume determi nationOrdered By: Cody Turner on 03-30-2024 Platelet mean volume (Bld) [Entitic vol] 8.2 fL 6.2-12.0 [facility] Monocyte percentageOrdered B y: Cody Turner on 03-30-2024 Monocytes/100 WBC (Bld) 18.6 % High 0-10 [facility] Neutrophil percentageOrdered By: Cody Turner on 03-30-2024 Neutrophils/100 WBC (Bld) 53.4 % 47-70 [facility] Nucleated red blood cell per centageOrdered By: Cody Turner on 03-30-2024 Nucleated RBC/100 WBC (Bld) [Ratio] 0 % 0-5 [facility] Platelet countOrdered By: Pedro Turner on 03-30-2024 Platelets (Bld) [#/Vol] 186 10*3/uL 150-450 [facility] Potassium measurementOrdered By: Cody Turner on 03-30-2024 Potassium [Moles/Vol] 3.5 mmol/L 3.5-5.1 [facility] RBC Auto (Bld) [#/Vol]Ordere d By: Cody Turner on 03-30-2024 RBC (Bld) [#/Vol] 3.54 10*6/uL Low 4.2-5.4 [facility] Serum anion gap measurementO rdered By: Cody Turner on 03-30-2024 Anion gap [Moles/Vol] 8 mmol/L 5-15 [facility] Serum globulin measurementOr dered By: Cody Turner on 03-30-2024 Globulin (S) [Mass/Vol] 3.1 g/dL 2.2-4.2 [facility] Serum or plasma alanine munguia otransferase (ALT) measurementOrdered By: Cody Turner on 03-30-2024 ALT [Catalytic activity/Vol] 43 U/L 13-56 [facility] Serum or plasma albumin yuliet urement (mass/volume)Ordered By: Cody Turner on 03-30-2024 Albumin [Mass/Vol] 3.3 g/dL 3.2-5.0 [facility] Serum or plasma alkaline cuba sphatase measurementOrdered By: Cody Turner on 03-30-2024 ALP [Catalytic activity/Vol] 72 U/L 45-117 [facility] Serum or plasma calcium yuliet urement (mass/volume)Ordered By: Cody Turner on 03-30-2024 Calcium [Mass/Vol] 9.5 mg/dL 8.5-10.1 [facility] Serum or plasma creatinine m easurement (mass/volume)Ordered By: Cody Turner on 03-30-2024 Creatinine [Mass/Vol] 0.65 mg/dL 0.55-1.02 [facility] Comment on above: The validity of the calculated GFR & GFRAA in patients over 70 years has not been determined. Clinical correlation is essential. Serum or plasma urea nitroge n measurement (mass/volume)Ordered By: Cody Turner on 03-30-2024 Urea nitrogen [Mass/Vol] 13 mg/dL 08-26 [facility] Sodium levelOrdered By: Cody Turner on 03-30-2024 Sodium [Moles/Vol] 135 mmol/L Low 136-145 [facility] Protein [Mass/Vol] 6.4 g/dL 6.4-8.2 [facility] White blood cell (WBC) count [facility] 03-30-[facility]24 WBC (Bld) [#/Vol] 3.4 10*3/uL Low 4.4-11.0 [facility] CNPNon 03-29-2024 CNPN Telephone (AGENDOG) -------- MARY VALIENTE ([id number]) 1960 F T Date Time Provider Department 03/29/24 [place] [place] [facility] During your visit today, we recorded the following information about you: Jassi Joshi 03/29/2024 7:12 AM Signed Recent labs uploaded to patients chart Jassi Joshi Allergies As of Date: 03/29/2024 Noted Allergy Reaction BEE STING 06/21/2012 7 - Swelling CODEINE 06/21/2012 4 - Hives 8 - GI Upset HYDROCODONE-ACETAMINOPHE N 06/21/2012 11 - Vomiting Date Reviewed: 03/28/2024 Reviewed by: Renee Anton - Fully Assessed Reason for Visit: Results, Lab [1201] Prescriptions as of 03/29/2024 - calcium Carbonate 300 mg, 750mg, (TUMS) 300 mg (750 mg) chewable tablet Take 1 tablet by mouth once daily. - gabapentin (NEURONTIN) 300 mg capsule Take 300 mg by mouth two times a day. - traZODone (DESYREL) 50 mg tablet - sennosides (LAXATIVE ORAL) Take by mouth. - oxyCODONE-acetaminophen (PERCOCET) 5-325 mg tablet - baclofen 10 mg tablet - sulfamethoxazole-trimeth oprim (BACTRIM DS) 800-160 mg per tablet Take 1 tablet by mouth once daily. - Ascorbic Acid (VITAMIN C) 100 mg tablet Take 100 mg by mouth once daily. - Vitamin E, dl, acetate, (VITAMIN E) 400 unit capsule Take 400 Units by mouth once daily. - lysine 500 mg tab 500 mg. - mirtazapine (REMERON) 30 mg tablet Take 30 mg by mouth daily at bedtime. - cyanocobalamin 1,000 mcg Tab Take 1 tablet by mouth once daily. - Cholecalciferol, Vitamin D3, 5,000 unit cap Take 2,000 Units by mouth once daily. 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 Scoliosis [M41.9] 04/15/2017 Abscess [L02.91] 05/08/2022 Wound drainage [T14.8XXA] 08/25/2022 Wound dehiscence [T81.30XA] 08/27/2022 Infection of thoracic spine (HCC) [M46.24] 08/27/2022 MSSA (methicillin susceptible Staphylococcus au*08/27/2022 S/P hardware removal [Z98.890] 10/08/2022 Chronic midline thoracic back pain [M54.6, G89.*09/03/2023 History of thoracic spinal fusion [Z98.1] 09/03/2023 Chronic neck pain [M54.2, G89.29] 09/03/2023 Encounter Status:Closed by JASSI JOSHI on 03/29/24 [facility] CNOVon 03-28-2024 CNOV Office Visit (MICHAEL Harrison) -------- MARY VALIENTE ([id number]) 1960 F T Date Time Provider Department 03/28/24 10:30 AM [place] [place] AGENDJAS[facility] During your visit today, we recorded the following information about you: Pulse Blood pressure Weight Height 99/minute 111/72 45.6 kg 1.47 m [facility] [place], 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 Patient was referred by Rosio Butterfield I, MD [facility]. Patient stated that she has screws loose in her back and she has a lot of pain because of that. She is not felling good at all. [facility]. Patient is on treatment with Prolia injection for the past 1.5 years started by her PCP. She had 3 doses so far, tolerates medication well. Last dose 08/10/2023. Never had any fracture in the past. She has a new compression fracture on C7 - Multiple thoracolumbar spinal fusions. FOLLOW UP VISIT: 03/28/2024 Patient seen in follow up today Mary Valiente 63 year old who presents today for osteoporosis management. She is on Prolia since 2022 given at her PCP office. In November 2023 she was diagnosed with non hodgkin's lymphoma. She started treatment with chemo in December at [facility]. Also she stated that her daughter was dx with uterine cancer stage IV, and she can't have hysterectomy and they said she might have only 2 years to live. She is 41 years old. Patient stated that she is very depressed, and she is crying. She has a port on right chest for chemo. She will have chemo for 9 months, monthly. Denies recent falls or fractures. [facility] PHONE NUMBER: [phone] Upcoming dental procedures planned? NO Participating in weight bearing exercise? NO Last Fall: N/A Ambulatory assistance: N/A CURRENT MEDICATION FOR OSTEOPENIA/OSTEOPOROSIS: 08/2022 Started PROLIA # 3 - 08/10/2023 Takes calcium? YES - TUMS 750 MG Takes Vit D? YES - Cholecalciferol, Vitamin D3, 2,000 unit cap Takes Supplements? YES - cyanocobalamin 1,000 mcg 1 Tab daily - Ascorbic Acid (VITAMIN C) 100 mg tablet daily - Vitamin E, dl, acetate, (VITAMIN E) 400 unit 1 capsule daily OSTEOPENIA/OSTEOPOROSIS TREATMENT HISTORY: 08/2022 Started PROLIA - # 3 - 08/10/2023 MAJOR RISK FACTORS FOR OSTEOPOROSIS: High risk condition: YES - Age of menopause: partial Hysterectomy - 52 y.o - Loss of height: 2 in - Fracture(s): C7 (09/2023 CT) - Former quit 40 + years ago - non hodgkin's lymphoma 11/2023 High risk medications: YES - Chemo 12/2023 BONE DENSITY: NEXT DXA DUE: 11/13/2025 11/13/2023 DXA: AXIAL SKELETON [facility] IMPRESSION: THE LOWEST T-SCORE IS -3.6 IN THE LEFT FOREARM 1) DIAGNOSIS (based on BMD alone): OSTEOPOROSIS RESULTS: Right Femoral Neck: 0.566 g/cm2, T-score -2.5, Z-score -1.1 Right Total Hip: 0.656 g/cm2, T-score -2.3, Z-score -1.2 Left Femoral Neck: 0.533 g/cm2, T-score -2.7, Z-score -1.2 Left Total Hip: 0.660 g/cm2, T-score -2.3, Z-score -1.1 Left Forearm, Distal 1/3 of Radius: 0.475 g/cm2, T-score -3.6, Z-score -2.1 FRAX 10 YEAR PROBABILITY OF FRACTURE: Major osteoporotic: 13% Hip Fracture: 2.6% 09/05/2021 DXA: AXIAL SKELETON [facility] Review of Systems GENERAL: feeling well without fatigue, weight loss noted due to HEENT:Negative for frequent or significant headaches, No changes in hearing or vision, no nose bleeds or other nasal problems NECK:Negative for lumps, goiter, pain and significant neck swelling RESPIRATORY: Negative for cough, hemoptysis, wheezing, COPD, dyspnea or shortness of breath CARDIOVASCULAR: Negative for chest pain, leg swelling, hypertension, CHF or palpitations GASTROINTESTINAL: No nausea, vomiting, or diarrhea GENITOURINARY: No history of dysuria, frequency or incontinence COMMUNICATIONS TECH: Negative for abnormal vaginal bleeding, abnormal vaginal discharge MUSCULOSKELETAL: back pain NEUROLOGIC:Negative for focal numbness or weakness, headaches and dizziness or syncope. SKIN:Negative for lesions, rash, and itching PSYCHIATRIC: Negative for sleep disturbance, mood disorder and recent psychosocial stressors. HEMATOLOGIC/LYMPHATIC/IM MUNOLOGIC:Negative for prolonged bleeding, bruising easily or swollen nodes ENDOCRINE: Negative for cold or heat intolerance, polyuria, polydipsia and goiter MEDICAL HIS (more content not included)... Normal [facility] PET/CT Tumor Base -Thigh Sub son 03-22-2024 PET/CT Tumor Base -Thigh Subs Normal [facility] CBC W/Diff, Automatedon 02-10 Absolute Lymph 0.48 X10 3/uL Low 0.83-4.51 [facility] Comment on above: Performed By: #### L 500.4050, L100.0100, L501.1400 ####[facility] [address] [place], [address] Absolute Neut 3.8 X10 3/uL Normal 2.0-7.7 [facility] Comment on above: Performed By: #### L 500.4050, L100.0100, L501.1400 ####[facility] [address] [place], [address] Basophils/100 WBC (Bld) 0.8 % Normal 0-1 [facility] Comment on above: Performed By: #### L 500.4050, L100.0100, L501.1400 ####[facility] [address] [place], [address] Eosinophils/100 WBC (Bld) 0.0 % Normal 0-5 [facility] Comment on above: Performed By: #### L 500.4050, L100.0100, L501.1400 ####[facility] [address] [place], [address] Erythrocyte distribution width (RBC) [Ratio] 14.7 % High 11.6-14.6 [facility] Comment on above: Performed By: #### L 500.4050, L100.0100, L501.1400 ####[facility] [address] [place], [address] Hematocrit (Bld) [Volume fraction] 35.8 % Low 37-47 [facility] Comment on above: Performed By: #### L 500.4050, L100.0100, L501.1400 ####[facility] [address] [place], [address] Hemoglobin (Bld) [Mass/Vol] 12.6 g/dL Normal 12.0-15.0 [facility] Comment on above: Performed By: #### L 500.4050, L100.0100, L501.1400 ####[facility] [address] [place], [address] IG% 1.300 High 0.0-0.9 [facility] Comment on above: Result Comment: IG% - Immature Granulocytes (promyelocytes, myelocytes andmetamyelocytes) > 1% indicates that a LEFT SHIFT is Present. Performed By: #### L 500.4050, L100.0100, L501.1400 ####[facility] [address] [place], [address] Lymphocytes/100 WBC (Bld) 9.2 % Low 19-41 [facility] Comment on above: Performed By: #### L 500.4050, L100.0100, L501.1400 ####[facility] [address] [place], [address] MCH (RBC) [Entitic mass] 32.2 pg High 27.0-32.0 [facility] Comment on above: Performed By: #### L 500.4050, L100.0100, L501.1400 ####[facility] [address] [place], [address] MCHC (RBC) [Mass/Vol] 35.2 g/dL Normal 32-36 [facility] Comment on above: Performed By: #### L 500.4050, L100.0100, L501.1400 ####[facility] [address] [place], [address] MCV (RBC) [Entitic vol] 91.6 fL Normal 81-99 [facility] Comment on above: Performed By: #### L 500.4050, L100.0100, L501.1400 ####[facility] [address] [place], [address] Monocytes/100 WBC (Bld) 16.2 % High 0-10 [facility] Comment on above: Performed By: #### L 500.4050, L100.0100, L501.1400 ####[facility] [address] [place], [address] Neutrophils/100 WBC (Bld) 72.5 % High 47-70 [facility] Comment on above: Performed By: #### L 500.4050, L100.0100, L501.1400 ####[facility] [address] [place], [address] Nucleated RBC (Bld) [#/Vol] 0 10*3/uL Normal 0-5 [facility] Comment on above: Performed By: #### L 500.4050, L100.0100, L501.1400 ####[facility] [address] [place], [address] Platelet mean volume (Bld) [Entitic vol] 8.2 fL Normal 6.2-12.0 [facility] Comment on above: Performed By: #### L 500.4050, L100.0100, L501.1400 ####[facility] [address] [place], [address] Platelets (Bld) [#/Vol] 266 10*3/uL Normal 150-450 [facility] Comment on above: Performed By: #### L 500.4050, L100.0100, L501.1400 ####[facility] [address] [place], [address] RBC (Bld) [#/Vol] 3.91 10*6/uL Low 4.2-5.4 [facility] Comment on above: Performed By: #### L 500.4050, L100.0100, L501.1400 ####[facility] [address] [place], [address] RDW SD 49.3 fl High 35.1-43.9 [facility] Comment on above: Performed By: #### L 500.4050, L100.0100, L501.1400 ####[facility] [address] [place], [address] WBC (Bld) [#/Vol] 5.2 10*3/uL Normal 4.4-11.0 [facility] Comment on above: Performed By: #### L 500.4050, L100.0100, L501.1400 ####[facility] [address] [place], [address] Comprehensive Metabolic Prof ilon 03-08-2024 Albumin [Mass/Vol] 3.8 g/dL Normal 3.2-5.0 [facility] Comment on above: Performed By: #### L 500.4050, L100.0100, L501.1400 ####[facility] [address] [place], [address] Albumin/Globulin [Mass ratio] 1.2 {ratio} Normal 0.9-2.4 [facility] Comment on above: Performed By: #### L 500.4050, L100.0100, L501.1400 ####[facility] [address] [place], [address] ALK P 78 U/L Normal 45-117 [facility] Comment on above: Performed By: #### L 500.4050, L100.0100, L501.1400 ####[facility] [address] [place], [address] ALT [Catalytic activity/Vol] 39 U/L Normal 13-56 [facility] Comment on above: Performed By: #### L 500.4050, L100.0100, L501.1400 ####[facility] [address] [place], [address] AST [Catalytic activity/Vol] 19 U/L Normal 15-37 [facility] Comment on above: Performed By: #### L 500.4050, L100.0100, L501.1400 ####[facility] [address] [place], [address] Bilirubin [Mass/Vol] 0.30 mg/dL Normal 0.20-1.00 [facility] Comment on above: Result Comment: For patients on eltrombopag therapy, use of Dimension [place] TBIL is not recommended. Performed By: #### L 500.4050, L100.0100, L501.1400 ####[facility] [address] [place], [address] BUN/CRE 32.6 RATIO High 10-20 [facility] Comment on above: Performed By: #### L 500.4050, L100.0100, L501.1400 ####[facility] [address] [place], [address] CA,Total 9.6 mg/dL Normal 8.5-10.1 [facility] Comment on above: Performed By: #### L 500.4050, L100.0100, L501.1400 ####[facility] [address] [place], [address] Chloride [Moles/Vol] 103 mmol/L Normal 98-107 [facility] Comment on above: Performed By: #### L 500.4050, L100.0100, L501.1400 ####[facility] [address] [place], [address] CO2 [Moles/Vol] 25.0 mmol/L Normal 21.0-32.0 [facility] Comment on above: Performed By: #### L 500.4050, L100.0100, L501.1400 ####[facility] [address] [place], [address] Creatinine [Mass/Vol] 0.64 mg/dL Normal 0.55-1.02 [facility] Comment on above: Result Comment: The validity of the calculated GFR GFRAA in patients over70 years has not been determined. Clinical correlation isessential. Performed By: #### L 500.4050, L100.0100, L501.1400 ####[facility] [address] [place], [address] ECRCL 63.79 ml/min Normal [facility] Comment on above: Performed By: #### L 500.4050, L100.0100, L501.1400 ####[facility] [address] [place], [address] EST GFR - AA 119 mL/min Normal >60 [facility] Comment on above: Result Comment: Afri can Dominican GFR Calc Performed By: #### L 500.4050, L100.0100, L501.1400 ####[facility] [address] [place], [address] GAP 6 Normal 5-15 [facility] Comment on above: Performed By: #### L 500.4050, L100.0100, L501.1400 ####[facility] [address] [place], [address] GFR/1.73 sq M.predicted among non-blacks MDRD (S/P/Bld) [Vol rate/Area] 99 mL/min/{1.73_m2} Normal >60 [facility] Comment on above: Result Comment: Non- GFR Calc Performed By: #### L 500.4050, L100.0100, L501.1400 ####[facility] [address] [place], [address] Globulin (S) [Mass/Vol] 3.3 g/dL Normal 2.2-4.2 [facility] Comment on above: Performed By: #### L 500.4050, L100.0100, L501.1400 ####[facility] [address] [place], [address] Glucose [Mass/Vol] 105 mg/dL Normal 74-106 [facility] Comment on above: Result Comment: Fast ing Glucose result from 100 to 125 mg/dLsuggests IMPAIRED HOMEOSTASIS per A.D.A. criteria. Performed By: #### L 500.4050, L100.0100, L501.1400 ####[facility] [address] [place], [address] Potassium [Moles/Vol] 4.2 mmol/L Normal 3.5-5.1 [facility] Comment on above: Performed By: #### L 500.4050, L100.0100, L501.1400 ####[facility] [address] [place], [address] Sodium [Moles/Vol] 135 mmol/L Low 136-145 [facility] Comment on above: Performed By: #### L 500.4050, L100.0100, L501.1400 ####[facility] [address] [place], [address] T PROT 7.1 g/dL Normal 6.4-8.2 [facility] Comment on above: Performed By: #### L 500.4050, L100.0100, L501.1400 ####[facility] [address] [place], [address] Urea nitrogen [Mass/Vol] 21 mg/dL High 7-18 [facility] Comment on above: Performed By: #### L 500.4050, L100.0100, L501.1400 ####[facility] [address] [place], [address] Ferritinon 03-08-2024 Ferritin [Mass/Vol] 1111 ng/mL High 8-252 [facility] Comment on above: Order Comment: 1 Performed By: #### L 503.6030, L504.2610, L503.6550 ####[facility] [address] [place], [address] Iron+Iron Binding Capacityon 03-08-2024 Iron [Mass/Vol] 119 ug/dL Normal 50-170 [facility] Comment on above: Order Comment: 1 Performed By: #### L 503.6030, L504.2610, L503.6550 ####[facility] [address] [place], [address] IRON SATURATION 40.6 Normal 15.0-55.0 [facility] Comment on above: Order Comment: 1 Performed By: #### L 503.6030, L504.2610, L503.6550 ####[facility] [address] [place], [address] TIBC 293 ug/dL Normal 250-450 [facility] Comment on above: Order Comment: 1 Performed By: #### L 503.6030, L504.2610, L503.6550 ####[facility] [address] [place], [address] LDHon 03-08-2024 LDH 184 U/L Normal 84-246 [facility] Comment on above: Order Comment: 1 Performed By: #### L 503.6030, L504.2610, L503.6550 ####[facility] [address] [place], [address] Oncology Visit Reporton 02-10 Oncology Visit Report Normal [facility] Uric Acidon 03-08-2024 URIC 2.7 mg/dL Normal 2.6-6.0 [facility] Comment on above: Result Comment: The drugs N-Acetylcysteine and Metamizole may falselydepress this assay. Performed By: #### L 500.4050, L100.0100, L501.1400 ####[facility] [address] [place], [address] Internal Medicine Office Vis iton 02-15-2024 Internal Medicine Office Visit Normal [facility] CBC W/Diff, Automatedon - Absolute Lymph 0.36 X10 3/uL Low 0.83-4.51 [facility] Comment on above: Performed By: #### L 501.1400, L100.0100, L500.4050 ####[facility] [address] [place], [address] Absolute Neut 3.2 X10 3/uL Normal 2.0-7.7 [facility] Comment on above: Performed By: #### L 501.1400, L100.0100, L500.4050 ####[facility] [address] [place], [address] Basophils/100 WBC (Bld) 1.4 % High 0-1 [facility] Comment on above: Performed By: #### L 501.1400, L100.0100, L500.4050 ####[facility] [address] [place], [address] Eosinophils/100 WBC (Bld) 2.3 % Normal 0-5 [facility] Comment on above: Performed By: #### L 501.1400, L100.0100, L500.4050 ####[facility] [address] [place], [address] Erythrocyte distribution width (RBC) [Ratio] 14.5 % Normal 11.6-14.6 [facility] Comment on above: Performed By: #### L 501.1400, L100.0100, L500.4050 ####[facility] [address] [place], [address] Hematocrit (Bld) [Volume fraction] 33.2 % Low 37-47 [facility] Comment on above: Performed By: #### L 501.1400, L100.0100, L500.4050 ####[facility] [address] [place], [address] Hemoglobin (Bld) [Mass/Vol] 11.3 g/dL Low 12.0-15.0 [facility] Comment on above: Performed By: #### L 501.1400, L100.0100, L500.4050 ####[facility] [address] [place], [address] IG% 0.700 Normal 0.0-0.9 [facility] Comment on above: Result Comment: IG% - Immature Granulocytes (promyelocytes, myelocytes andmetamyelocytes) > 1% indicates that a LEFT SHIFT is Present. Performed By: #### L 501.1400, L100.0100, L500.4050 ####[facility] [address] [place], [address] Lymphocytes/100 WBC (Bld) 8.1 % Low 19-41 [facility] Comment on above: Performed By: #### L 501.1400, L100.0100, L500.4050 ####[facility] [address] [place], [address] MCH (RBC) [Entitic mass] 31.4 pg Normal 27.0-32.0 [facility] Comment on above: Performed By: #### L 501.1400, L100.0100, L500.4050 ####[facility] [address] [place], [address] MCHC (RBC) [Mass/Vol] 34.0 g/dL Normal 32-36 [facility] Comment on above: Performed By: #### L 501.1400, L100.0100, L500.4050 ####[facility] [address] [place], [address] MCV (RBC) [Entitic vol] 92.2 fL Normal 81-99 [facility] Comment on above: Performed By: #### L 501.1400, L100.0100, L500.4050 ####[facility] [address] [place], [address] Monocytes/100 WBC (Bld) 15.6 % High 0-10 [facility] Comment on above: Performed By: #### L 501.1400, L100.0100, L500.4050 ####[facility] [address] [place], [address] Neutrophils/100 WBC (Bld) 71.9 % High 47-70 [facility] Comment on above: Performed By: #### L 501.1400, L100.0100, L500.4050 ####[facility] [address] [place], [address] Nucleated RBC (Bld) [#/Vol] 0 10*3/uL Normal 0-5 [facility] Comment on above: Performed By: #### L 501.1400, L100.0100, L500.4050 ####[facility] [address] [place], [address] Platelet mean volume (Bld) [Entitic vol] 8.7 fL Normal 6.2-12.0 [facility] Comment on above: Performed By: #### L 501.1400, L100.0100, L500.4050 ####[facility] [address] [place], [address] Platelets (Bld) [#/Vol] 213 10*3/uL Normal 150-450 [facility] Comment on above: Performed By: #### L 501.1400, L100.0100, L500.4050 ####[facility] [address] [place], [address] RBC (Bld) [#/Vol] 3.60 10*6/uL Low 4.2-5.4 [facility] Comment on above: Performed By: #### L 501.1400, L100.0100, L500.4050 ####[facility] [address] [place], [address] RDW SD 48.6 fl High 35.1-43.9 [facility] Comment on above: Performed By: #### L 501.1400, L100.0100, L500.4050 ####[facility] [address] [place], [address] WBC (Bld) [#/Vol] 4.4 10*3/uL Normal 4.4-11.0 [facility] Comment on above: Performed By: #### L 501.1400, L100.0100, L500.4050 ####[facility] [address] [place], [address] Comprehensive Metabolic [facility] ilon 02-08-2024 Albumin [Mass/Vol] 3.6 g/dL Normal 3.2-5.0 [facility] Comment on above: Performed By: #### L 501.1400, L100.0100, L500.4050 ####[facility] [address] [place], [address] Albumin/Globulin [Mass ratio] 1.2 {ratio} Normal 0.9-2.4 [facility] Comment on above: Performed By: #### L 501.1400, L100.0100, L500.4050 ####[facility] [address] [place], [address] ALK P 59 U/L Normal 45-117 [facility] Comment on above: Performed By: #### L 501.1400, L100.0100, L500.4050 ####[facility] [address] [place], [address] ALT [Catalytic activity/Vol] 32 U/L Normal 13-56 [facility] Comment on above: Performed By: #### L 501.1400, L100.0100, L500.4050 ####[facility] [address] [place], [address] AST [Catalytic activity/Vol] 21 U/L Normal 15-37 [facility] Comment on above: Performed By: #### L 501.1400, L100.0100, L500.4050 ####[facility] [address] [place], [address] Bilirubin [Mass/Vol] 0.30 mg/dL Normal 0.20-1.00 [facility] Comment on above: Result Comment: For patients on eltrombopag therapy, use of Dimension [place] TBIL is not recommended. Performed By: #### L 501.1400, L100.0100, L500.4050 ####[facility] [address] [place], [address] BUN/CRE 33.9 RATIO High 10-20 [facility] Comment on above: Performed By: #### L 501.1400, L100.0100, L500.4050 ####[facility] [address] [place], [address] CA,Total 9.4 mg/dL Normal 8.5-10.1 [facility] Comment on above: Performed By: #### L 501.1400, L100.0100, L500.4050 ####[facility] [address] [place], [address] Chloride [Moles/Vol] 106 mmol/L Normal 98-107 [facility] Comment on above: Performed By: #### L 501.1400, L100.0100, L500.4050 ####[facility] [address] [place], [address] CO2 [Moles/Vol] 24.0 mmol/L Normal 21.0-32.0 [facility] Comment on above: Performed By: #### L 501.1400, L100.0100, L500.4050 ####[facility] [address] [place], [address] Creatinine [Mass/Vol] 0.56 mg/dL Normal 0.55-1.02 [facility] Comment on above: Result Comment: The validity of the calculated GFR GFRAA in patients over70 years has not been determined. Clinical correlation isessential. Performed By: #### L 501.1400, L100.0100, L500.4050 ####[facility] [address] [place], [address] ECRCL 72.90 ml/min Normal [facility] Comment on above: Performed By: #### L 501.1400, L100.0100, L500.4050 ####[facility] [address] [place], [address] EST GFR - AA 140 mL/min Normal >60 [facility] Comment on above: Result Comment: Afri can Dominican GFR Calc Performed By: #### L 501.1400, L100.0100, L500.4050 ####[facility] [address] [place], [address] GAP 6 Normal 5-15 [facility] Comment on above: Performed By: #### L 501.1400, L100.0100, L500.4050 ####[facility] [address] [place], [address] GFR/1.73 sq M.predicted among non-blacks MDRD (S/P/Bld) [Vol rate/Area] 116 mL/min/{1.73_m2} Normal >60 [facility] Comment on above: Result Comment: Non- GFR Calc Performed By: #### L 501.1400, L100.0100, L500.4050 ####[facility] [address] [place], [address] Globulin (S) [Mass/Vol] 3.1 g/dL Normal 2.2-4.2 [facility] Comment on above: Performed By: #### L 501.1400, L100.0100, L500.4050 ####[facility] [address] [place], [address] Glucose [Mass/Vol] 100 mg/dL Normal 74-106 [facility] Comment on above: Result Comment: Fast ing Glucose result from 100 to 125 mg/dLsuggests IMPAIRED HOMEOSTASIS per A.D.A. criteria. Performed By: #### L 501.1400, L100.0100, L500.4050 ####[facility] [address] [place], [address] Potassium [Moles/Vol] 4.6 mmol/L Normal 3.5-5.1 [facility] Comment on above: Performed By: #### L 501.1400, L100.0100, L500.4050 ####[facility] [address] [place], [address] Sodium [Moles/Vol] 136 mmol/L Normal 136-145 [facility] Comment on above: Performed By: #### L 501.1400, L100.0100, L500.4050 ####[facility] [address] [place], [address] T PROT 6.7 g/dL Normal 6.4-8.2 [facility] Comment on above: Performed By: #### L 501.1400, L100.0100, L500.4050 ####[facility] [address] [place], [address] Urea nitrogen [Mass/Vol] 19 mg/dL High 7-18 [facility] Comment on above: Performed By: #### L 501.1400, L100.0100, L500.4050 ####[facility] [address] [place], [address] Oncology Visit Reporton 01-11 Oncology Visit Report Normal [facility] Uric Acidon 02-08-2024 URIC 2.5 mg/dL Low 2.6-6.0 [facility] Comment on above: Result Comment: The drugs N-Acetylcysteine and Metamizole may falselydepress this assay. Performed By: #### L 501.1400, L100.0100, L500.4050 ####[facility] [address] [place], [address] CBC W/Diff, Automatedon 01-09 Absolute Lymph 0.42 X10 3/uL Low 0.83-4.51 [facility] Comment on above: Performed By: #### L 501.6710, L100.0100, L101.9900, L500.4050, L501.5200 ####[facility] [address] [place], [address] Absolute Neut 5.0 X10 3/uL Normal 2.0-7.7 [facility] Comment on above: Performed By: #### L 501.6710, L100.0100, L101.9900, L500.4050, L501.5200 ####[facility] [address] [place], [address] Basophils/100 WBC (Bld) 1.1 % High 0-1 [facility] Comment on above: Performed By: #### L 501.6710, L100.0100, L101.9900, L500.4050, L501.5200 ####[facility] [address] [place], [address] Eosinophils/100 WBC (Bld) 1.1 % Normal 0-5 [facility] Comment on above: Performed By: #### L 501.6710, L100.0100, L101.9900, L500.4050, L501.5200 ####[facility] [address] [place], [address] Erythrocyte distribution width (RBC) [Ratio] 14.5 % Normal 11.6-14.6 [facility] Comment on above: Performed By: #### L 501.6710, L100.0100, L101.9900, L500.4050, L501.5200 ####[facility] [address] [place], [address] Hematocrit (Bld) [Volume fraction] 34.0 % Low 37-47 [facility] Comment on above: Performed By: #### L 501.6710, L100.0100, L101.9900, L500.4050, L501.5200 ####[facility] [address] [place], [address] Hemoglobin (Bld) [Mass/Vol] 11.4 g/dL Low 12.0-15.0 [facility] Comment on above: Performed By: #### L 501.6710, L100.0100, L101.9900, L500.4050, L501.5200 ####[facility] [address] [place], [address] IG% 0.800 Normal 0.0-0.9 [facility] Comment on above: Result Comment: IG% - Immature Granulocytes (promyelocytes, myelocytes andmetamyelocytes) > 1% indicates that a LEFT SHIFT is Present. Performed By: #### L 501.6710, L100.0100, L101.9900, L500.4050, L501.5200 ####[facility] [address] [place], [address] Lymphocytes/100 WBC (Bld) 6.5 % Low 19-41 [facility] Comment on above: Performed By: #### L 501.6710, L100.0100, L101.9900, L500.4050, L501.5200 ####[facility] [address] [place], [address] MCH (RBC) [Entitic mass] 31.2 pg Normal 27.0-32.0 [facility] Comment on above: Performed By: #### L 501.6710, L100.0100, L101.9900, L500.4050, L501.5200 ####[facility] [address] [place], [address] MCHC (RBC) [Mass/Vol] 33.5 g/dL Normal 32-36 [facility] Comment on above: Performed By: #### L 501.6710, L100.0100, L101.9900, L500.4050, L501.5200 ####[facility] [address] [place], [address] MCV (RBC) [Entitic vol] 93.2 fL Normal 81-99 [facility] Comment on above: Performed By: #### L 501.6710, L100.0100, L101.9900, L500.4050, L501.5200 ####[facility] [address] [place], [address] Monocytes/100 WBC (Bld) 13.6 % High 0-10 [facility] Comment on above: Performed By: #### L 501.6710, L100.0100, L101.9900, L500.4050, L501.5200 ####[facility] [address] [place], [address] Neutrophils/100 WBC (Bld) 76.9 % High 47-70 [facility] Comment on above: Performed By: #### L 501.6710, L100.0100, L101.9900, L500.4050, L501.5200 ####[facility] [address] [place], [address] Nucleated RBC (Bld) [#/Vol] 0 10*3/uL Normal 0-5 [facility] Comment on above: Performed By: #### L 501.6710, L100.0100, L101.9900, L500.4050, L501.5200 ####[facility] [address] [place], [address] Platelet mean volume (Bld) [Entitic vol] 8.6 fL Normal 6.2-12.0 [facility] Comment on above: Performed By: #### L 501.6710, L100.0100, L101.9900, L500.4050, L501.5200 ####[facility] [address] [place], [address] Platelets (Bld) [#/Vol] 333 10*3/uL Normal 150-450 [facility] Comment on above: Performed By: #### L 501.6710, L100.0100, L101.9900, L500.4050, L501.5200 ####[facility] [address] [place], [address] RBC (Bld) [#/Vol] 3.65 10*6/uL Low 4.2-5.4 [facility] Comment on above: Performed By: #### L 501.6710, L100.0100, L101.9900, L500.4050, L501.5200 ####[facility] [facility] [address] [place], [address] RDW SD 48.6 fl High 35.1-43.9 [facility] Comment on above: Performed By: #### L 501.6710, L100.0100, L101.9900, L500.4050, L501.5200 ####[facility] [address] [place], [address] WBC (Bld) [#/Vol] 6.5 10*3/uL Normal 4.4-11.0 [facility] Comment on above: Performed By: #### L 501.6710, L100.0100, L101.9900, L500.4050, L501.5200 ####[facility] [address] [place], [address] CRPon 01-26-2024 C-REACTIVE PROT < 2.90 Normal 0.0-3.0 [facility] Comment on above: Result Comment: C-Re active Protein (CRP) provides useful information for thediagnosis, therapy and monitoring of inflammatory processesand associated diseases. For the evaluation of Relative Riskfor Cardiovascular Disease, a High Sensitivity CRP (HSCRP)should be ordered. Performed By: #### L 501.6710, L100.0100, L101.9900, L500.4050, L501.5200 ####[facility] [address] [place], [address] Comprehensive Metabolic Prof ilon 01-26-2024 Albumin [Mass/Vol] 3.6 g/dL Normal 3.2-5.0 [facility] Comment on above: Performed By: #### L 501.6710, L100.0100, L101.9900, L500.4050, L501.5200 ####[facility] [address] [place], [address] Albumin/Globulin [Mass ratio] 1.1 {ratio} Normal 0.9-2.4 [facility] Comment on above: Performed By: #### L 501.6710, L100.0100, L101.9900, L500.4050, L501.5200 ####[facility] [address] [place], [address] ALK P 54 U/L Normal 45-117 [facility] Comment on above: Performed By: #### L 501.6710, L100.0100, L101.9900, L500.4050, L501.5200 ####[facility] [address] [place], [address] ALT [Catalytic activity/Vol] 22 U/L Normal 13-56 [facility] Comment on above: Performed By: #### L 501.6710, L100.0100, L101.9900, L500.4050, L501.5200 ####[facility] [address] [place], [address] AST [Catalytic activity/Vol] 19 U/L Normal 15-37 [facility] Comment on above: Performed By: #### L 501.6710, L100.0100, L101.9900, L500.4050, L501.5200 ####[facility] [address] [place], [address] Bilirubin [Mass/Vol] 0.20 mg/dL Normal 0.20-1.00 [facility] Comment on above: Result Comment: For patients on eltrombopag therapy, use of Dimension [place] TBIL is not recommended. Performed By: #### L 501.6710, L100.0100, L101.9900, L500.4050, L501.5200 ####[facility] [address] [place], [address] BUN/CRE 22.4 RATIO High 10-20 [facility] Comment on above: Performed By: #### L 501.6710, L100.0100, L101.9900, L500.4050, L501.5200 ####[facility] [address] [place], [address] CA,Total 9.3 mg/dL Normal 8.5-10.1 [facility] Comment on above: Performed By: #### L 501.6710, L100.0100, L101.9900, L500.4050, L501.5200 ####[facility] [address] [place], [address] Chloride [Moles/Vol] 106 mmol/L Normal 98-107 [facility] Comment on above: Performed By: #### L 501.6710, L100.0100, L101.9900, L500.4050, L501.5200 ####[facility] [address] [place], [address] CO2 [Moles/Vol] 23.0 mmol/L Normal 21.0-32.0 [facility] Comment on above: Performed By: #### L 501.6710, L100.0100, L101.9900, L500.4050, L501.5200 ####[facility] [address] [place], [address] Creatinine [Mass/Vol] 0.67 mg/dL Normal 0.55-1.02 [facility] Comment on above: Result Comment: The validity of the calculated GFR GFRAA in patients over70 years has not been determined. Clinical correlation isessential. Performed By: #### L 501.6710, L100.0100, L101.9900, L500.4050, L501.5200 ####[facility] [address] [place], [address] ECRCL 60.93 ml/min Normal [facility] Comment on above: Performed By: #### L 501.6710, L100.0100, L101.9900, L500.4050, L501.5200 ####[facility] [address] [place], [address] EST GFR - AA 114 mL/min Normal >60 [facility] Comment on above: Result Comment: Afri can Dominican GFR Calc Performed By: #### L 501.6710, L100.0100, L101.9900, L500.4050, L501.5200 ####[facility] [address] [place], [address] GAP 4 Low 5-15 [facility] Comment on above: Performed By: #### L 501.6710, L100.0100, L101.9900, L500.4050, L501.5200 ####[facility] [address] [place], [address] GFR/1.73 sq M.predicted among non-blacks MDRD (S/P/Bld) [Vol rate/Area] 94 mL/min/{1.73_m2} Normal >60 [facility] Comment on above: Result Comment: Non- GFR Calc Performed By: #### L 501.6710, L100.0100, L101.9900, L500.4050, L501.5200 ####[facility] [address] [place], [address] Globulin (S) [Mass/Vol] 3.4 g/dL Normal 2.2-4.2 [facility] Comment on above: Performed By: #### L 501.6710, L100.0100, L101.9900, L500.4050, L501.5200 ####[facility] [address] [place], [address] Glucose [Mass/Vol] 104 mg/dL Normal 74-106 [facility] Comment on above: Result Comment: Fast ing Glucose result from 100 to 125 mg/dLsuggests IMPAIRED HOMEOSTASIS per A.D.A. criteria. Performed By: #### L 501.6710, L100.0100, L101.9900, L500.4050, L501.5200 ####[facility] [address] [place], [address] Potassium [Moles/Vol] 4.1 mmol/L Normal 3.5-5.1 [facility] Comment on above: Performed By: #### L 501.6710, L100.0100, L101.9900, L500.4050, L501.5200 ####[facility] [address] [place], [address] Sodium [Moles/Vol] 133 mmol/L Low 136-145 [facility] Comment on above: Performed By: #### L 501.6710, L100.0100, L101.9900, L500.4050, L501.5200 ####[facility] [address] [place], [address] T PROT 7.0 g/dL Normal 6.4-8.2 [facility] Comment on above: Performed By: #### L 501.6710, L100.0100, L101.9900, L500.4050, L501.5200 ####[facility] [address] [place], [address] Urea nitrogen [Mass/Vol] 15 mg/dL Normal 7-18 [facility] Comment on above: Performed By: #### L 501.6710, L100.0100, L101.9900, L500.4050, L501.5200 ####[facility] [address] [place], [address] Erythrocyte Sed Rateon 01-25 SED RATE 9 mm/hr Normal 0-30 [facility] Comment on above: Performed By: #### L 501.6710, L100.0100, L101.9900, L500.4050, L501.5200 ####[facility] [address] [place], [address] LDHon 01-26-2024 LDH 253 U/L High 84-246 [facility] Comment on above: Order Comment: 1 Performed By: #### L 504.2610, L501.2300, L501.1400 ####[facility] [address] [place], [address] Magnesiumon 01-26-2024 Magnesium [Mass/Vol] 2.0 mg/dL Normal 1.6-2.6 [facility] Comment on above: Performed By: #### L 501.6710, L100.0100, L101.9900, L500.4050, L501.5200 ####[facility] [address] [place], [address] Magnesium measurementOrdered By: Ernesto Jaramillo on 01-26-2024 Magnesium [Mass/Vol] 2.0 mg/dL 1.6-2.6 [facility] Oncology Visit Reporton 01-09 Oncology Visit Report Normal [facility] Phosphoruson 01-26-2024 Phosphate [Mass/Vol] 3.3 mg/dL Normal 2.5-4.9 [facility] Comment on above: Order Comment: 1 Performed By: #### L 504.2610, L501.2300, L501.1400 ####[facility] [address] [place], [address] Uric Acidon 01-26-2024 URIC 2.5 mg/dL Low 2.6-6.0 [facility] Comment on above: Order Comment: 1 Result Comment: The drugs N-Acetylcysteine and Metamizole may falselydepress this assay. Performed By: #### L 504.2610, L501.2300, L501.1400 ####[facility] [address] [place], [address] Stool Occult Blood iFOBon STOB Positive Normal [facility] Comment on above: Performed By: #### M 100.7900 ####[facility] [address] [place], [address] Stool gastrointestinal hemog lobin detection by immunologic methodOrdered By: Ernesto Jaramillo on 01-20-2024 Lower GI hemoglobin IA Ql (Stl) Positive Abnormal [facility] CBC W/Diff, Automatedon Absolute Lymph 0.96 X10 3/uL Normal 0.83-4.51 [facility] Comment on above: Performed By: #### L 100.0100, L500.4050, L501.1400 ####[facility] [address] [place], [address] Absolute Neut 4.4 X10 3/uL Normal 2.0-7.7 [facility] Comment on above: Performed By: #### L 100.0100, L500.4050, L501.1400 ####[facility] [address] [place], [address] Basophils/100 WBC (Bld) 0.8 % Normal 0-1 [facility] Comment on above: Performed By: #### L 100.0100, L500.4050, L501.1400 ####[facility] [address] [place], [address] Eosinophils/100 WBC (Bld) 1.8 % Normal 0-5 [facility] Comment on above: Performed By: #### L 100.0100, L500.4050, L501.1400 ####[facility] [address] [place], [address] Erythrocyte distribution width (RBC) [Ratio] 13.2 % Normal 11.6-14.6 [facility] Comment on above: Performed By: #### L 100.0100, L500.4050, L501.1400 ####[facility] [address] [place], [address] Hematocrit (Bld) [Volume fraction] 33.7 % Low 37-47 [facility] Comment on above: Performed By: #### L 100.0100, L500.4050, L501.1400 ####[facility] [address] [place], [address] Hemoglobin (Bld) [Mass/Vol] 11.3 g/dL Low 12.0-15.0 [facility] Comment on above: Performed By: #### L 100.0100, L500.4050, L501.1400 ####[facility] [address] [place], [address] IG% 0.700 Normal 0.0-0.9 [facility] Comment on above: Result Comment: IG% - Immature Granulocytes (promyelocytes, myelocytes andmetamyelocytes) > 1% indicates that a LEFT SHIFT is Present. Performed By: #### L 100.0100, L500.4050, L501.1400 ####[facility] [address] [place], [address] Lymphocytes/100 WBC (Bld) 15.7 % Low 19-41 [facility] Comment on above: Performed By: #### L 100.0100, L500.4050, L501.1400 ####[facility] [address] [place], [address] MCH (RBC) [Entitic mass] 30.6 pg Normal 27.0-32.0 [facility] Comment on above: Performed By: #### L 100.0100, L500.4050, L501.1400 ####[facility] [address] [place], [address] MCHC (RBC) [Mass/Vol] 33.5 g/dL Normal 32-36 [facility] Comment on above: Performed By: #### L 100.0100, L500.4050, L501.1400 ####[facility] [address] [place], [address] MCV (RBC) [Entitic vol] 91.3 fL Normal 81-99 [facility] Comment on above: Performed By: #### L 100.0100, L500.4050, L501.1400 ####[facility] [address] [place], [address] Monocytes/100 WBC (Bld) 9.7 % Normal 0-10 [facility] Comment on above: Performed By: #### L 100.0100, L500.4050, L501.1400 ####[facility] [address] [place], [address] Neutrophils/100 WBC (Bld) 71.3 % High 47-70 [facility] Comment on above: Performed By: #### L 100.0100, L500.4050, L501.1400 ####[facility] [address] [place], [address] Nucleated RBC (Bld) [#/Vol] 0 10*3/uL Normal 0-5 [facility] Comment on above: Performed By: #### L 100.0100, L500.4050, L501.1400 ####[facility] [address] [place], [address] Platelet mean volume (Bld) [Entitic vol] 8.7 fL Normal 6.2-12.0 [facility] Comment on above: Performed By: #### L 100.0100, L500.4050, L501.1400 ####[facility] [address] [place], [address] Platelets (Bld) [#/Vol] 333 10*3/uL Normal 150-450 [facility] Comment on above: Performed By: #### L 100.0100, L500.4050, L501.1400 ####[facility] [address] [place], [address] RBC (Bld) [#/Vol] 3.69 10*6/uL Low 4.2-5.4 [facility] Comment on above: Performed By: #### L 100.0100, L500.4050, L501.1400 ####[facility] [address] [place], [address] RDW SD 44.0 fl High 35.1-43.9 [facility] Comment on above: Performed By: #### L 100.0100, L500.4050, L501.1400 ####[facility] [address] [place], [address] WBC (Bld) [#/Vol] 6.1 10*3/uL Normal 4.4-11.0 [facility] Comment on above: Performed By: #### L 100.0100, L500.4050, L501.1400 ####[facility] [address] [place], [address] Comprehensive Metabolic Prof ndon 01-12-2024 Albumin [Mass/Vol] 3.6 g/dL Normal 3.2-5.0 [facility] Comment on above: Performed By: #### L 100.0100, L500.4050, L501.1400 ####[facility] [address] [place], [address] Albumin/Globulin [Mass ratio] 1.1 {ratio} Normal 0.9-2.4 [facility] Comment on above: Performed By: #### L 100.0100, L500.4050, L501.1400 ####[facility] [address] [place], [address] ALK P 56 U/L Normal 45-117 [facility] Comment on above: Performed By: #### L 100.0100, L500.4050, L501.1400 ####[facility] [address] [place], [address] ALT [Catalytic activity/Vol] 11 U/L Low 13-56 [facility] Comment on above: Performed By: #### L 100.0100, L500.4050, L501.1400 ####[facility] [address] [place], [address] AST [Catalytic activity/Vol] 12 U/L Low 15-37 [facility] Comment on above: Performed By: #### L 100.0100, L500.4050, L501.1400 ####[facility] [address] [place], [address] Bilirubin [Mass/Vol] 0.20 mg/dL Normal 0.20-1.00 [facility] Comment on above: Result Comment: For patients on eltrombopag therapy, use of Dimension [place] TBIL is not recommended. Performed By: #### L 100.0100, L500.4050, L501.1400 ####[facility] [address] [place], [address] BUN/CRE 25.0 RATIO High 10-20 [facility] Comment on above: Performed By: #### L 100.0100, L500.4050, L501.1400 ####[facility] [address] [place], [address] CA,Total 9.3 mg/dL Normal 8.5-10.1 [facility] Comment on above: Performed By: #### L 100.0100, L500.4050, L501.1400 ####[facility] [address] [place], [address] Chloride [Moles/Vol] 108 mmol/L High 98-107 [facility] Comment on above: Performed By: #### L 100.0100, L500.4050, L501.1400 ####[facility] [address] [place], [address] CO2 [Moles/Vol] 23.0 mmol/L Normal 21.0-32.0 [facility] Comment on above: Performed By: #### L 100.0100, L500.4050, L501.1400 ####[facility] [address] [place], [address] Creatinine [Mass/Vol] 0.64 mg/dL Normal 0.55-1.02 [facility] Comment on above: Result Comment: The validity of the calculated GFR GFRAA in patients over70 years has not been determined. Clinical correlation isessential. Performed By: #### L 100.0100, L500.4050, L501.1400 ####[facility] [address] [place], [address] ECRCL 63.79 ml/min Normal [facility] Comment on above: Performed By: #### L 100.0100, L500.4050, L501.1400 ####[facility] [address] [place], [address] EST GFR - AA 120 mL/min Normal >60 [facility] Comment on above: Result Comment: Afri can Dominican GFR Calc Performed By: #### L 100.0100, L500.4050, L501.1400 ####[facility] [address] [place], [address] GAP 6 Normal 5-15 [facility] Comment on above: Performed By: #### L 100.0100, L500.4050, L501.1400 ####[facility] [address] [place], [address] GFR/1.73 sq M.predicted among non-blacks MDRD (S/P/Bld) [Vol rate/Area] 99 mL/min/{1.73_m2} Normal >60 [facility] Comment on above: Result Comment: Non- GFR Calc Performed By: #### L 100.0100, L500.4050, L501.1400 ####[facility] [address] [place], [address] Globulin (S) [Mass/Vol] 3.2 g/dL Normal 2.2-4.2 [facility] Comment on above: Performed By: #### L 100.0100, L500.4050, L501.1400 ####[facility] [address] [place], [address] Glucose [Mass/Vol] 97 mg/dL Normal 74-106 [facility] Comment on above: Performed By: #### L 100.0100, L500.4050, L501.1400 ####[facility] [address] [place], [address] Potassium [Moles/Vol] 4.1 mmol/L Normal 3.5-5.1 [facility] Comment on above: Performed By: #### L 100.0100, L500.4050, L501.1400 ####[facility] [address] [place], [address] Sodium [Moles/Vol] 137 mmol/L Normal 136-145 [facility] Comment on above: Performed By: #### L 100.0100, L500.4050, L501.1400 ####[facility] [address] [place], [address] T PROT 6.8 g/dL Normal 6.4-8.2 [facility] Comment on above: Performed By: #### L 100.0100, L500.4050, L501.1400 ####[facility] [address] [place], [address] Urea nitrogen [Mass/Vol] 16 mg/dL Normal 7-18 [facility] Comment on above: Performed By: #### L 100.0100, L500.4050, L501.1400 ####[facility] [address] [place], [place], [address] Oncology Visit Reporton 0 Oncology Visit Report Normal [facility] Uric Acidon 01-12-2024 URIC 2.3 mg/dL Low 2.6-6.0 [facility] Comment on above: Result Comment: The drugs N-Acetylcysteine and Metamizole may falselydepress this assay. Performed By: #### L 100.0100, L500.4050, L501.1400 ####[facility] [address] [place], [address] CBC W/Diff, Automatedon 12-11 Absolute Lymph 0.93 X10 3/uL Normal 0.83-4.51 [facility] Comment on above: Performed By: #### L 100.0100, L501.5200, L501.1400, L501.2300, L101.9900, L500.4050, L504.2610 ####[facility] [address] [place], [address] Absolute Neut 4.7 X10 3/uL Normal 2.0-7.7 [facility] Comment on above: Performed By: #### L 100.0100, L501.5200, L501.1400, L501.2300, L101.9900, L500.4050, L504.2610 ####[facility] [address] [place], [address] Basophils/100 WBC (Bld) 0.8 % Normal 0-1 [facility] Comment on above: Performed By: #### L 100.0100, L501.5200, L501.1400, L501.2300, L101.9900, L500.4050, L504.2610 ####[facility] [address] [place], [address] Eosinophils/100 WBC (Bld) 1.3 % Normal 0-5 [facility] Comment on above: Performed By: #### L 100.0100, L501.5200, L501.1400, L501.2300, L101.9900, L500.4050, L504.2610 ####[facility] [address] [place], [address] Erythrocyte distribution width (RBC) [Ratio] 13.1 % Normal 11.6-14.6 [facility] Comment on above: Performed By: #### L 100.0100, L501.5200, L501.1400, L501.2300, L101.9900, L500.4050, L504.2610 ####[facility] [address] [place], [address] Hematocrit (Bld) [Volume fraction] 37.6 % Normal 37-47 [facility] Comment on above: Performed By: #### L 100.0100, L501.5200, L501.1400, L501.2300, L101.9900, L500.4050, L504.2610 ####[facility] [address] [place], [address] Hemoglobin (Bld) [Mass/Vol] 12.6 g/dL Normal 12.0-15.0 [facility] Comment on above: Performed By: #### L 100.0100, L501.5200, L501.1400, L501.2300, L101.9900, L500.4050, L504.2610 ####[facility] [address] [place], [address] IG% 0.300 Normal 0.0-0.9 [facility] Comment on above: Result Comment: IG% - Immature Granulocytes (promyelocytes, myelocytes andmetamyelocytes) > 1% indicates that a LEFT SHIFT is Present. Performed By: #### L 100.0100, L501.5200, L501.1400, L501.2300, L101.9900, L500.4050, L504.2610 ####[facility] [address] [place], [address] Lymphocytes/100 WBC (Bld) 14.5 % Low 19-41 [facility] Comment on above: Performed By: #### L 100.0100, L501.5200, L501.1400, L501.2300, L101.9900, L500.4050, L504.2610 ####[facility] [address] [place], [address] MCH (RBC) [Entitic mass] 31.4 pg Normal 27.0-32.0 [facility] Comment on above: Performed By: #### L 100.0100, L501.5200, L501.1400, L501.2300, L101.9900, L500.4050, L504.2610 ####[facility] [address] [place], [address] MCHC (RBC) [Mass/Vol] 33.5 g/dL Normal 32-36 [facility] Comment on above: Performed By: #### L 100.0100, L501.5200, L501.1400, L501.2300, L101.9900, L500.4050, L504.2610 ####[facility] [address] [place], [address] MCV (RBC) [Entitic vol] 93.8 fL Normal 81-99 [facility] Comment on above: Performed By: #### L 100.0100, L501.5200, L501.1400, L501.2300, L101.9900, L500.4050, L504.2610 ####[facility] [address] [place], [address] Monocytes/100 WBC (Bld) 9.5 % Normal 0-10 [facility] Comment on above: Performed By: #### L 100.0100, L501.5200, L501.1400, L501.2300, L101.9900, L500.4050, L504.2610 ####[facility] [address] [place], [address] Neutrophils/100 WBC (Bld) 73.6 % High 47-70 [facility] Comment on above: Performed By: #### L 100.0100, L501.5200, L501.1400, L501.2300, L101.9900, L500.4050, L504.2610 ####[facility] [address] [place], [address] Nucleated RBC (Bld) [#/Vol] 0 10*3/uL Normal 0-5 [facility] Comment on above: Performed By: #### L 100.0100, L501.5200, L501.1400, L501.2300, L101.9900, L500.4050, L504.2610 ####[facility] [address] [place], [address] Platelet mean volume (Bld) [Entitic vol] 8.7 fL Normal 6.2-12.0 [facility] Comment on above: Performed By: #### L 100.0100, L501.5200, L501.1400, L501.2300, L101.9900, L500.4050, L504.2610 ####[facility] [address] [place], [address] Platelets (Bld) [#/Vol] 394 10*3/uL Normal 150-450 [facility] Comment on above: Performed By: #### L 100.0100, L501.5200, L501.1400, L501.2300, L101.9900, L500.4050, L504.2610 ####[facility] [address] [place], [address] RBC (Bld) [#/Vol] 4.01 10*6/uL Low 4.2-5.4 [facility] Comment on above: Performed By: #### L 100.0100, L501.5200, L501.1400, L501.2300, L101.9900, L500.4050, L504.2610 ####[facility] [address] [place], [address] RDW SD 45.0 fl High 35.1-43.9 [facility] Comment on above: Performed By: #### L 100.0100, L501.5200, L501.1400, L501.2300, L101.9900, L500.4050, L504.2610 ####[facility] [address] [place], [address] WBC (Bld) [#/Vol] 6.4 10*3/uL Normal 4.4-11.0 [facility] Comment on above: Performed By: #### L 100.0100, L501.5200, L501.1400, L501.2300, L101.9900, L500.4050, L504.2610 ####[facility] [address] [place], [address] CXR for Line Placementon CXR for Line Placement Normal [facility] Comprehensive Metabolic Prof ilon 01-04-2024 Albumin [Mass/Vol] 4.0 g/dL Normal 3.2-5.0 [facility] Comment on above: Order Comment: 1 Performed By: #### L 100.0100, L501.5200, L501.1400, L501.2300, L101.9900, L500.4050, L504.2610 ####[facility] [address] [place], [address] Albumin/Globulin [Mass ratio] 1.3 {ratio} Normal 0.9-2.4 [facility] Comment on above: Order Comment: 1 Performed By: #### L 100.0100, L501.5200, L501.1400, L501.2300, L101.9900, L500.4050, L504.2610 ####[facility] [address] [place], [address] ALK P 58 U/L Normal 45-117 [facility] Comment on above: Order Comment: 1 Performed By: #### L 100.0100, L501.5200, L501.1400, L501.2300, L101.9900, L500.4050, L504.2610 ####[facility] [address] [place], [address] ALT [Catalytic activity/Vol] 12 U/L Low 13-56 [facility] Comment on above: Order Comment: 1 Performed By: #### L 100.0100, L501.5200, L501.1400, L501.2300, L101.9900, L500.4050, L504.2610 ####[facility] [address] [place], [address] AST [Catalytic activity/Vol] 14 U/L Low 15-37 [facility] Comment on above: Order Comment: 1 Performed By: #### L 100.0100, L501.5200, L501.1400, L501.2300, L101.9900, L500.4050, L504.2610 ####[facility] [address] [place], [address] Bilirubin [Mass/Vol] 0.30 mg/dL Normal 0.20-1.00 [facility] Comment on above: Order Comment: 1 Result Comment: For patients on eltrombopag therapy, use of Dimension [place] TBIL is not recommended. Performed By: #### L 100.0100, L501.5200, L501.1400, L501.2300, L101.9900, L500.4050, L504.2610 ####[facility] [address] [place], [address] BUN/CRE 20.3 RATIO High 10-20 [facility] Comment on above: Order Comment: 1 Performed By: #### L 100.0100, L501.5200, L501.1400, L501.2300, L101.9900, L500.4050, L504.2610 ####[facility] [address] [place], [address] CA,Total 9.1 mg/dL Normal 8.5-10.1 [facility] Comment on above: Order Comment: 1 Performed By: #### L 100.0100, L501.5200, L501.1400, L501.2300, L101.9900, L500.4050, L504.2610 ####[facility] [address] [place], [address] Chloride [Moles/Vol] 106 mmol/L Normal 98-107 [facility] Comment on above: Order Comment: 1 Performed By: #### L 100.0100, L501.5200, L501.1400, L501.2300, L101.9900, L500.4050, L504.2610 ####[facility] [address] [place], [address] CO2 [Moles/Vol] 26.0 mmol/L Normal 21.0-32.0 [facility] Comment on above: Order Comment: 1 Performed By: #### L 100.0100, L501.5200, L501.1400, L501.2300, L101.9900, L500.4050, L504.2610 ####[facility] [address] [place], [address] Creatinine [Mass/Vol] 0.64 mg/dL Normal 0.55-1.02 [facility] Comment on above: Order Comment: 1 Result Comment: The validity of the calculated GFR GFRAA in patients over70 years has not been determined. Clinical correlation isessential. Performed By: #### L 100.0100, L501.5200, L501.1400, L501.2300, L101.9900, L500.4050, L504.2610 ####[facility] [address] [place], [place], [phone](438) ECRCL 63.79 ml/min Normal [facility] Comment on above: Order Comment: 1 Performed By: #### L 100.0100, L501.5200, L501.1400, L501.2300, L101.9900, L500.4050, L504.2610 ####[facility] [address] [place], [place], [phone](752) EST GFR - AA 120 mL/min Normal >60 [facility] Comment on above: Order Comment: 1 Result Comment: Afri can Dominican GFR Calc Performed By: #### L 100.0100, L501.5200, L501.1400, L501.2300, L101.9900, L500.4050, L504.2610 ####[facility] [address] [place], [place], [phone]) GAP 4 Low 5-15 [facility] Comment on above: Order Comment: 1 Performed By: #### L 100.0100, L501.5200, L501.1400, L501.2300, L101.9900, L500.4050, L504.2610 ####[facility] [address] [place], [place], [phone](778) GFR/1.73 sq M.predicted among non-blacks MDRD (S/P/Bld) [Vol rate/Area] 99 mL/min/{1.73_m2} Normal >60 [facility] Comment on above: Order Comment: 1 Result Comment: Non- GFR Calc Performed By: #### L 100.0100, L501.5200, L501.1400, L501.2300, L101.9900, L500.4050, L504.2610 ####[facility] [address] [place], [address] Globulin (S) [Mass/Vol] 3.1 g/dL Normal 2.2-4.2 [facility] Comment on above: Order Comment: 1 Performed By: #### L 100.0100, L501.5200, L501.1400, L501.2300, L101.9900, L500.4050, L504.2610 ####[facility] [address] [place], [address] Glucose [Mass/Vol] 103 mg/dL Normal 74-106 [facility] Comment on above: Order Comment: 1 Result Comment: Fast ing Glucose result from 100 to 125 mg/dLsuggests IMPAIRED HOMEOSTASIS per A.D.A. criteria. Performed By: #### L 100.0100, L501.5200, L501.1400, L501.2300, L101.9900, L500.4050, L504.2610 ####[facility] [address] [place], [address] Potassium [Moles/Vol] 4.1 mmol/L Normal 3.5-5.1 [facility] Comment on above: Order Comment: 1 Performed By: #### L 100.0100, L501.5200, L501.1400, L501.2300, L101.9900, L500.4050, L504.2610 ####[facility] [address] [place], [address] Sodium [Moles/Vol] 136 mmol/L Normal 136-145 [facility] Comment on above: Order Comment: 1 Performed By: #### L 100.0100, L501.5200, L501.1400, L501.2300, L101.9900, L500.4050, L504.2610 ####[facility] [address] [place], [address] T PROT 7.1 g/dL Normal 6.4-8.2 [facility] Comment on above: Order Comment: 1 Performed By: #### L 100.0100, L501.5200, L501.1400, L501.2300, L101.9900, L500.4050, L504.2610 ####[facility] [address] [place], [address] Urea nitrogen [Mass/Vol] 13 mg/dL Normal 7-18 [facility] Comment on above: Order Comment: 1 Performed By: #### L 100.0100, L501.5200, L501.1400, L501.2300, L101.9900, L500.4050, L504.2610 ####[facility] [address] [place], [place], [phone] Discharge Instructionon 12-11 Discharge Instruction Normal [facility] Erythrocyte Sed Rateon 01-03 SED RATE 5 mm/hr Normal 0-30 [facility] Comment on above: Performed By: #### L 100.0100, L501.5200, L501.1400, L501.2300, L101.9900, L500.4050, L504.2610 ####[facility] [address] [place], [place], [phone] HIV - WCHon 01-04-2024 HIV Non-Reactive Normal Nonreactive [facility] Comment on above: Performed By: #### L 3890.6005 ####[facility] [address] [place], [place], [phone] HIV 1 and HIV-2 antibody ass ay with HIV-1 p24 antigen detectionOrdered By: Ernesto Jaramillo on 01-04-2024 HIV 1+2 Ab+HIV1 p24 Ag IA Ql Non-Reactive Nonreactive [facility] LDHon 01-04-2024 LDH 186 U/L Normal 84-246 [facility] Comment on above: Order Comment: 1 Performed By: #### L 100.0100, L501.5200, L501.1400, L501.2300, L101.9900, L500.4050, L504.2610 ####[facility] [address] [place], [address] MR/POSTOP.ANEon 01-04-2024 MR/POSTOP.ANE Normal [facility] MR/XPNSARCL2st 01-04-2024 MR/POSTOPAN2 Normal [facility] Magnesiumon 01-04-2024 Magnesium [Mass/Vol] 2.0 mg/dL Normal 1.6-2.6 [facility] Comment on above: Order Comment: 1 Performed By: #### L 100.0100, L501.5200, L501.1400, L501.2300, L101.9900, L500.4050, L504.2610 ####[facility] [address] [place], [place], [address] Oncology Visit Reporton 12-11 Oncology Visit Report Normal [facility] Operative Reporton Operative Report Normal [facility] Phosphoruson 01-04-2024 Phosphate [Mass/Vol] 3.3 mg/dL Normal 2.5-4.9 [facility] Comment on above: Order Comment: 1 Performed By: #### L 100.0100, L501.5200, L501.1400, L501.2300, L101.9900, L500.4050, L504.2610 ####[facility] [address] [place], [address] Uric Acidon 01-04-2024 URIC 2.8 mg/dL Normal 2.6-6.0 [facility] Comment on above: Order Comment: 1 Result Comment: The drugs N-Acetylcysteine and Metamizole may falselydepress this assay. Performed By: #### L 100.0100, L501.5200, L501.1400, L501.2300, L101.9900, L500.4050, L504.2610 ####[facility] [address] [place], [address] Surgery Visit Reporton 12-29 Surgery Visit Report Normal [facility] Oncology Visit Reporton 12-10 Oncology Visit Report Normal [facility] No Panel InformationOrdered By: Ernesto Jaramillo on 12-09-2023 Hepatitis C Antibody Comment Comment . [facility] Comment on above: Not infected with HC V unless early or acute infection issuspected (which may be delayed in an immunocompromisedindividual), or other evidence exists to indicate HCVinfection.Performed at: [facility] [id number] Director: Jourdan Carlson PhD, Phone: [phone] Serum hepatitis B virus core antibody detectionOrdered By: Ernesto Jaramillo on 12-09-2023 HBV core Ab Ql (S) Negative Negative [facility] Serum or plasma plhc-0-kzrqj globulin measurement (mass/volume)Ordered By: Ernesto Jaramillo on 12-09-2023 Vahw-1-Wresdpciaqwuz [Mass/Vol] 1.8 ug/mL 0.6-2.4 [facility] Comment on above: Siemens Immulite 200 0 Immunochemiluminometric assay (ICMA)Values obtained with different assay methods or kits cannotbe used interchangeably. Results cannot be interpreted asabsolute evidence of the presence or absence of malignantdisease.Performed at: [facility] [id number] Director: Jey Gil MD, Phone: [phone] Serum or plasma hepatitis B virus surface antigen detection by immunoassayOrdered By: Ernesto Jaramillo on 12-09-2023 HBV surface Ag IA Ql Negative Negative [facility] BD DXA - FOREARM SKELETONon 11-13-2023 BD DXA - FOREARM SKELETON * * *Final Report* * * DATE OF EXAM: Nov 13 2023 1:37PM [facility] 0870 - BD DXA - FOREARM SKELETON / PROCEDURE REASON: multiple diagnoses * * * * Physician Interpretation * * * * EXAMINATION: DXA BONE DENSITOMETRY BD VFA WITH DXA - AXIAL SKELETON, BD DXA - FOREARM SKELETON PATIENT DEMOGRAPHICS: Age: 63 years, Gender: Female SCANNER INFORMATION: DXA Model: [employer] C [address]65 Date Scanned: 11/13/2023 1:37 PM CLINICAL HISTORY: DIAGNOSTIC Age-related osteoporosis with current pathological fracture with routine healing, subsequent encounter Encounter for screening for osteoporosis Asymptomatic postmenopausal status . RISK FACTORS FOR OSTEOPOROSIS AND ASSOCIATED FRACTURES REPORTED BY THIS PATIENT: Please refer to Bone Health Questionnaire in the EMR CURRENT THERAPY: Please refer to Bone Health Questionnaire in the EMR TECHNICAL LIMITATIONS: spine surgery RESULTS: Right Femoral Neck: 0.566 g/cm2, T-score -2.5, Z-score -1.1 Right Total Hip: 0.656 g/cm2, T-score -2.3, Z-score -1.2 Left Femoral Neck: 0.533 g/cm2, T-score -2.7, Z-score -1.2 Left Total Hip: 0.660 g/cm2, T-score -2.3, Z-score -1.1 Left Forearm, Distal 1/3 of Radius: 0.475 g/cm2, T-score -3.6, Z-score -2.1 No comparison data - the patient has not had a previous bone density in the [facility] or the previous bone density was performed on a different DXA machine (new, updated model or different location) within the [facility]. IMPRESSION: THE LOWEST T-SCORE IS -3.6 IN THE LEFT FOREARM 1) DIAGNOSIS (based on BMD alone): OSTEOPOROSIS Caution: Medical conditions other than osteoporosis may cause low bone density, such as osteomalacia or renal osteodystrophy. Clinical correlation is necessary. 2) FRACTURE RISK (based on FRAX): 10-year absolute fracture risk: - major osteoporotic fracture = 13 % - hip fracture = 2.6 % - A diagnosis of Osteoporosis, a 10 year probability of hip fracture greater than or equal to 3% or a 10 year probability of any major osteoporosis-related fracture greater than or equal to 20% should be considered for treatment. - DXA scanner generated FRAX calculations may slightly differ from online FRAX calculations due to differences in software versions. - All recommendations and calculations are to be considered as guidelines and should not replace sound clinical judgement - Caution: Fracture risk may be increased independent of BMD in patients with corticosteroid use, age greater than 65 years, or a history of prior fragility fracture. RECOMMENDATIONS: Follow-up in 2 years or as clinically indicated. Patients that are taking corticosteroids, are transplant recipients or have hyperparathyroidism should have annual follow-up. Follow-up scans should always be done on the same machine for accurate comparison. FOR MORE INFORMATION ABOUT DIAGNOSIS AND TREATMENT: [facility] for Osteoporosis and Metabolic Bone Disease:? www.ccf.org/arthritis/os logan National Osteoporosis Foundation:? www.nof.org International Society of Clinical Densitometry www.iscd.org Parking Enforcement Manager: INEZ Transcribe Date/Time: Nov 17 2023 6:21A Dictated by : NAVJOT DIAZ MD This examination was interpreted and the report reviewed and electronically signed by: NAVJOT DIAZ MD on Nov 17 2023 6:22AM EST [id number] -3.6 Normal [facility] BD VFA WITH DXA - AXIAL SKEL ETONon 11-13-2023 BD VFA WITH DXA - AXIAL SKELETON * * *Final Report* * * DATE OF EXAM: Nov 13 2023 1:37PM [facility] 0802 - BD VFA WITH DXA - AXIAL SKELETON / PROCEDURE REASON: multiple diagnoses * * * * Physician Interpretation * * * * EXAMINATION: DXA BONE DENSITOMETRY BD VFA WITH DXA - AXIAL SKELETON, BD DXA - FOREARM SKELETON PATIENT DEMOGRAPHICS: Age: 63 years, Gender: Female SCANNER INFORMATION: DXA Model: [employer] C [address]2335 Date Scanned: 11/13/2023 1:37 PM CLINICAL HISTORY: DIAGNOSTIC Age-related osteoporosis with current pathological fracture with routine healing, subsequent encounter Encounter for screening for osteoporosis Asymptomatic postmenopausal status . RISK FACTORS FOR OSTEOPOROSIS AND ASSOCIATED FRACTURES REPORTED BY THIS PATIENT: Please refer to Bone Health Questionnaire in the EMR CURRENT THERAPY: Please refer to Bone Health Questionnaire in the EMR TECHNICAL LIMITATIONS: spine surgery RESULTS: Right Femoral Neck: 0.566 g/cm2, T-score -2.5, Z-score -1.1 Right Total Hip: 0.656 g/cm2, T-score -2.3, Z-score -1.2 Left Femoral Neck: 0.533 g/cm2, T-score -2.7, Z-score -1.2 Left Total Hip: 0.660 g/cm2, T-score -2.3, Z-score -1.1 Left Forearm, Distal 1/3 of Radius: 0.475 g/cm2, T-score -3.6, Z-score -2.1 No comparison data - the patient has not had a previous bone density in the [facility] or the previous bone density was performed on a different DXA machine (new, updated model or different location) within the [facility]. IMPRESSION: THE LOWEST T-SCORE IS -3.6 IN THE LEFT FOREARM 1) DIAGNOSIS (based on BMD alone): OSTEOPOROSIS Caution: Medical conditions other than osteoporosis may cause low bone density, such as osteomalacia or renal osteodystrophy. Clinical correlation is necessary. 2) FRACTURE RISK (based on FRAX): 10-year absolute fracture risk: - major osteoporotic fracture = 13 % - hip fracture = 2.6 % - A diagnosis of Osteoporosis, a 10 year probability of hip fracture greater than or equal to 3% or a 10 year probability of any major osteoporosis-related fracture greater than or equal to 20% should be considered for treatment. - DXA scanner generated FRAX calculations may slightly differ from online FRAX calculations due to differences in software versions. - All recommendations and calculations are to be considered as guidelines and should not replace sound clinical judgement - Caution: Fracture risk may be increased independent of BMD in patients with corticosteroid use, age greater than 65 years, or a history of prior fragility fracture. RECOMMENDATIONS: Follow-up in 2 years or as clinically indicated. Patients that are taking corticosteroids, are transplant recipients or have hyperparathyroidism should have annual follow-up. Follow-up scans should always be done on the same machine for accurate comparison. FOR MORE INFORMATION ABOUT DIAGNOSIS AND TREATMENT: [facility] Center for Osteoporosis and Metabolic Bone Disease:? www.ccf.org/arthritis/os logan National Osteoporosis Foundation:? www.nof.org International Society of Clinical Densitometry www.iscd.org Parking Enforcement Manager: INEZ Transcribe Date/Time: Nov 17 2023 6:21A Dictated by : NAVJOT DIAZ MD This examination was interpreted and the report reviewed and electronically signed by: NAVJOT DIAZ MD on Nov 17 2023 6:22AM EST [id number] -3.6 Normal [facility] CNPNon 09-29-2023 CNPN Telephone (INFDAK) -------- MARY VALIENTE ([id number]) 1960 F T Date Time Provider Department 09/29/23 ESTBEAN JOEL INFDAK During your visit today, we recorded the following information about you: Salena Marie RN 09/29/2023 1:23 PM Signed Patient called office to report epigastric stomach pain, stomach upset, nausea, occasional vomiting and poor appetite over the past 2-3 months. Patient believes it could be related to her antibiotic and asked if there is a different one she can try. Please advise. Patient is scheduled to see her PCP on 09/30/23. I have also advised her to report the symptoms to her PCP. BRIDGETTE Lozada Anthony Kwok-Kit, 09/30/2023 4:08 PM Signed Chart reviewed. Previously on chronic cefadroxil suppression then changed to trimethoprim-sulfamethox azole daily since 11-07-2022. Recommend: Hold antibiotic for a few days and observe Call the office back next week and see how she does AKL Salena Marie RN 09/30/2023 4:10 PM Signed Patient notified. Salena Marie RN Allergies As of Date: 09/29/2023 Noted Allergy Reaction BEE STING 06/21/2012 7 - Swelling CODEINE 06/21/2012 4 - Hives 8 - GI Upset HYDROCODONE-ACETAMINOPHE N 06/21/2012 11 - Vomiting Date Reviewed: 09/28/2023 Reviewed by: Juli Rush LPN - Fully Assessed Reason for Visit: Symptoms [3640] Prescriptions as of 09/30/2023 - calcium Carbonate 300 mg, 750mg, (TUMS) 300 mg (750 mg) chewable tablet Take 1 tablet by mouth once daily. - gabapentin (NEURONTIN) 300 mg capsule Take 300 mg by mouth two times a day. - traZODone (DESYREL) 50 mg tablet - sennosides (LAXATIVE ORAL) Take by mouth. - oxyCODONE-acetaminophen (PERCOCET) 5-325 mg tablet - baclofen 10 mg tablet - sulfamethoxazole-trimeth oprim (BACTRIM DS) 800-160 mg per tablet Take 1 tablet by mouth once daily. - Ascorbic Acid (VITAMIN C) 100 mg tablet Take 100 mg by mouth once daily. - Vitamin E, dl, acetate, (VITAMIN E) 400 unit capsule Take 400 Units by mouth once daily. - lysine 500 mg tab 500 mg. - mirtazapine (REMERON) 30 mg tablet Take 30 mg by mouth daily at bedtime. - cyanocobalamin 1,000 mcg Tab Take 1 tablet by mouth once daily. - Cholecalciferol, Vitamin D3, 5,000 unit cap Take 2,000 Units by mouth once daily. 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] 08/27/2022 MSSA (methicillin susceptible Staphylococcus au*08/27/2022 S/P hardware removal [Z98.890] 10/08/2022 Chronic midline thoracic back pain [M54.6, G89.*09/03/2023 History of thoracic spinal fusion [Z98.1] 09/03/2023 Chronic neck pain [M54.2, G89.29] 09/03/2023 Encounter Status:Closed by ESTEBAN JOEL on 09/30/23 Normal [facility] 25(OH)D3 [facility] 25-hydroxyvitamin D3 [Mass/Vol] 40.5 ng/mL Normal >=30.0 [facility] Comment on above: Order Comment: Speci men Type: BLOOD SPECIMENOrdering Facility: [facility] Address: [address] [place] [address] Result Comment: Clas sification of 25 [place] Vitamin D status: Deficiency: <= 20.0 ng/ml. Insufficiency: 21.0-29.0 ng/ml. Sufficiency: >= 30.0 ng/ml. Performed By: #### 1 989-3 ####[facility]ORATORY[facility]IA [id number] [address] CNOVon 09-28-2023 CNOV Office Visit (MICHAEL Harrison) -------- MARY VALIENTE ([id number]) 1960 F T Date Time Provider Department 09/28/23 10:00 AM [place] During your visit today, we recorded the following information about you: Pulse Blood pressure Weight Height 61/minute 125/73 50.3 kg 1.467 m Valorie Oh APRN.MANAGER NICU 11/17/2023 2:08 PM Addendum ENDOCRINE REFERRAL Osteoporosis and Metabolic Bone Disease New Visit Date of Evaluation:09/28/2023 Patient seen at the request of / referral from:Rosio Butterfield I, MD [facility] RE: Osteoporosis, unspecified osteoporosis type, unspecified pathological fracture presence [M81.0] Reason for Exam Dx: Osteoporosis, unspecified osteoporosis type, unspecified pathological fracture presence [M81.0 (ICD-10-CM)] Comments: Patient has known hx of osteoporosis, on prolia injections managed by PCP Dr. Marshall since 2021 (unable to manage forteo) -will need treated with forteo 3 months prior to to undertaking surgical intervention -management of osteoporosis I will communicate my recommendations and findings via EPIC CC: Bone Health evaluation and counseling. HPI: Mary Valiente is a 62 year old female who presents in referral for my opinion regarding evaluation and management of osteoporosis. Patient [facility] Patient stated that she has screws loose in her back and she has a lot of pain because of that. She is not felling good at all. [facility]. Patient is on treatment with Prolia injection for the past 1.5 years started by her PCP. She had 3 doses so far, tolerates medication well. Last dose 08/10/2023. Never had any fracture in the past. She has a new compression fracture on C7. --- NEXT DXA DUE: NOW 09/05/2021 DXA: AXIAL SKELETON [facility] FRAX 10 YEAR PROBABILITY OF FRACTURE: Major osteoporotic: Hip Fracture: -- OSTEOPOROSIS TREATMENT HISTORY: 08/2022 Started PROLIA - # 3 - 08/10/2023 RISK FACTORS FOR OSTEOPOROSIS: Age of menarche: 11 Age of menopause: partial Hysterectomy - 52 Childbearin Loss of height: YES - 2 in Ever treated for OP: YES - Prolia Family History of Osteoporosis: Don't know Takes calcium? YES - TUMS 750 MG Takes Vit D? YES - Cholecalciferol, Vitamin D3, 2,000 unit cap Takes Supplements? YES - cyanocobalamin 1,000 mcg 1 Tab daily - Ascorbic Acid (VITAMIN C) 100 mg tablet daily - Vitamin E, dl, acetate, (VITAMIN E) 400 unit 1 capsule daily High risk condition: YES - History of fracture: YES - 09/2023 CT - C7 - History of heart attack: NO - History of stroke or seizure: NO - History of kidney stones: NO - Chronic kidney disease: NO - Chronic liver disease: NO - History of cancers: NO - Multiple myeloma: NO - History of Paget's disease: NO - Chronic obstructive pulmonary disease (COPD) and asthma: NO - Autoimmune disease or Rheumatoid arthritis: NO - Endocrine disorders: NO - including hypogonadal states (diabetes, Dalton?s syndrome, Hyperthyroidism, hyperparathyroidism, De Los Santos/Klinefelter syndrome, amenorrhea) - Nutritional/gastrointest inal problems: NO - malabsorption - (Crohn?s and ulcerative colitis), lactose intolerance, inflammatory bowel, celiac disease, Bariatric surgery) - Haematological disorders: NO - thalassemia, sickle-cell anemia, autoimmune hemolytic anemia or Hereditary Hemochromatosis (high level of iron) - Psychophysiological disorders and mental illness: NO - (dementia, anorexia nervosa/bulimia) High risk medications: NO - HRT (Estrogen) use: NO - Steroids use: NO - Chemotherapy, or radiation therapy: NO - [place] use: NO - Thiazide use: NO Dental Concerns: Has all own teeth Upcoming dental procedures planned? NO Vision checks up to date - Yes Social History: Smoker history: Former quit 40 years ago Alcohol abuse: NO Beverages: Coffee 2 cups (6 oz per cup), Tea no, Soda trev ean little cans Water: 6 oz per day Diet: Dairy no, Greens 1 - 2 times per week, Protein daily - Lactose or gluten intolerance: NO Exercise: NO Frequent falls: NO Last Fall: N/A Ambulatory assistance: NO Occupation: Retired Living situation: , dog 80 lbs --------- REVIEW OF SYSTEMS GENERAL: Weight loss HEENT: Negative for frequent or significant headaches, No changes in hearing or vision, no nose bleeds or other nasal problems ENDO/NECK: Denies jaw pain, no difficulty swallowing;Negative for lumps, goiter, pain and significant neck swelling CARDIOVASCULAR: Negative for chest (more content not included)... Normal [facility]Non [facility] MARY VALIENTE ([id number]) 1960 F CHT Date Time Provider Department 09/28/23 [place] AGENDOG During your visit today, we recorded the following information about you: Valorie Oh, UNDERWRITER.MANAGER NICU 09/28/2023 10:24 AM Signed Hi Jhoana, Please schedule her for dxa at [facility]. Thank you Valorie Oh, MSN, AGP-[facility] Endocrinology - Jhoana Yu PSS 09/28/2023 1:37 PM Addendum Referral Coordination Patient scheduled for:DEXA Location:[place] Date: 11-13-23 Time:12:30 Prep for test:no calcium or multi vitamin 24 hr prior to scan Patient informed: Spoke to patient and she voiced understanding Not wed this week,not before MALINI Martinez September 28, 2023 1:11 PM Allergies As of Date: 09/28/2023 Noted Allergy Reaction BEE STING 06/21/2012 7 - Swelling CODEINE 06/21/2012 4 - Hives 8 - GI Upset HYDROCODONE-ACETAMINOPHE N 06/21/2012 11 - Vomiting Date Reviewed: 09/28/2023 Reviewed by: Juli Rush LPN - Fully Assessed Reason for Visit: Appointment [186] Cmt: DXA Prescriptions as of 09/28/2023 - calcium Carbonate 300 mg, 750mg, (TUMS) 300 mg (750 mg) chewable tablet Take 1 tablet by mouth once daily. - gabapentin (NEURONTIN) 300 mg capsule Take 300 mg by mouth two times a day. - traZODone (DESYREL) 50 mg tablet - sennosides (LAXATIVE ORAL) Take by mouth. - oxyCODONE-acetaminophen (PERCOCET) 5-325 mg tablet - baclofen 10 mg tablet - sulfamethoxazole-trimeth oprim (BACTRIM DS) 800-160 mg per tablet Take 1 tablet by mouth once daily. - Ascorbic Acid (VITAMIN C) 100 mg tablet Take 100 mg by mouth once daily. - Vitamin E, dl, acetate, (VITAMIN E) 400 unit capsule Take 400 Units by mouth once daily. - lysine 500 mg tab 500 mg. - mirtazapine (REMERON) 30 mg tablet Take 30 mg by mouth daily at bedtime. - cyanocobalamin 1,000 mcg Tab Take 1 tablet by mouth once daily. - Cholecalciferol, Vitamin D3, 5,000 unit cap Take 2,000 Units by mouth once daily. 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] 08/27/2022 MSSA (methicillin susceptible Staphylococcus au*08/27/2022 S/P hardware removal [Z98.890] 10/08/2022 Chronic midline thoracic back pain [M54.6, G89.*09/03/2023 History of thoracic spinal fusion [Z98.1] 09/03/2023 Chronic neck pain [M54.2, G89.29] 09/03/2023 Encounter Status:Closed by VALORIE OH on 09/28/23 [facility] CNPN Telephone ([employer]) -------- MARY VALIENTE ([id number]) 1960 F T Date Time Provider Department 09/28/23 VALORIE OH During your visit today, we recorded the following information about you: Valorie Oh, UNDERWRITER.MANAGER NICU 09/28/2023 10:45 AM Signed Nurses, Please call the PCP's office and ask when patient had the Prolia injection ( last one 2.5 mo ago per pt). Please let me know. Thank you Valorie Oh, MSN, AGP-[facility] Endocrinology - Juli Martinez LPN 09/28/2023 10:58 AM Signed Spoke to pt's pcp office and was told pt had last prolia injection on 08/10/2023 Juli Rush LPN Allergies As of Date: 09/28/2023 Noted Allergy Reaction BEE STING 06/21/2012 7 - Swelling CODEINE 06/21/2012 4 - Hives 8 - GI Upset HYDROCODONE-ACETAMINOPHE N 06/21/2012 11 - Vomiting Date Reviewed: 09/28/2023 Reviewed by: Juli Rush LPN - Fully Assessed Reason for Visit: Medication Problem [65] Cmt: Prolia Prescriptions as of 09/28/2023 - calcium Carbonate 300 mg, 750mg, (TUMS) 300 mg (750 mg) chewable tablet Take 1 tablet by mouth once daily. - gabapentin (NEURONTIN) 300 mg capsule Take 300 mg by mouth two times a day. - traZODone (DESYREL) 50 mg tablet - sennosides (LAXATIVE ORAL) Take by mouth. - oxyCODONE-acetaminophen (PERCOCET) 5-325 mg tablet - baclofen 10 mg tablet - sulfamethoxazole-trimeth oprim (BACTRIM DS) 800-160 mg per tablet Take 1 tablet by mouth once daily. - Ascorbic Acid (VITAMIN C) 100 mg tablet Take 100 mg by mouth once daily. - Vitamin E, dl, acetate, (VITAMIN E) 400 unit capsule Take 400 Units by mouth once daily. - lysine 500 mg tab 500 mg. - mirtazapine (REMERON) 30 mg tablet Take 30 mg by mouth daily at bedtime. - cyanocobalamin 1,000 mcg Tab Take 1 tablet by mouth once daily. - Cholecalciferol, Vitamin D3, 5,000 unit cap Take 2,000 Units by mouth once daily. 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] 08/27/2022 MSSA (methicillin susceptible Staphylococcus au*08/27/2022 S/P hardware removal [Z98.890] 10/08/2022 Chronic midline thoracic back pain [M54.6, G89.*09/03/2023 History of thoracic spinal fusion [Z98.1] 09/03/2023 Chronic neck pain [M54.2, G89.29] 09/03/2023 Encounter Status:Closed by VALORIE OH on 09/28/23 Normal [facility] Comprehensive metabolic 2000 panelon 09-28-2023 Albumin [Mass/Vol] 4.5 g/dL 3.9 - 4.9 g/dL [facility] ALP [Catalytic activity/Vol] 66 U/L 34 - 123 U/L [facility] ALT With P-5'-P [Catalytic activity/Vol] 20 U/L 7 - 38 U/L [facility] Anion gap [Moles/Vol] 10 mmol/L 8 - 15 mmol/L [facility] AST With P-5'-P [Catalytic activity/Vol] 26 U/L 13 - 35 U/L [facility] Bilirubin [Mass/Vol] 0.2 mg/dL 0.2 - 1 .3 mg/dL [facility] Calcium [Mass/Vol] 9.5 mg/dL 8.5 - 10. 2 mg/dL [facility] Chloride [Moles/Vol] 101 mmol/L 98 - 10 7 mmol/L [facility] CO2 [Moles/Vol] 21 mmol/L Low 22 - 30 mmol/L [facility] Creatinine [Mass/Vol] 0.68 mg/dL 0.58 - 0.96 mg/dL [facility] GFR/1.73 sq M.predicted among non-blacks MDRD (S/P/Bld) [Vol rate/Area] 98 mL/min/{1.73_m2} - PINF [facility] Comment on above: Estimated Glomerular Filtration Rate (eGFR) is calculated using the 2020 CKD-EPI creatinine equation. This equation utilizes serum creatinine, sex, and age as parameters. The creatinine assay has traceable calibration to isotope dilution-mass spectrometry. Refer to KDIGO guidelines for clinical interpretation. In patients with unstable renal function, e.g. those with acute kidney injury, the eGFR may not accurately reflect actual GFR. Glucose [Mass/Vol] 84 mg/dL 74 - 99 mg/dL [facility] Comment on above: The [place] Diab[employer] s Association (ADA) provides guidance for cutoff values for fasting glucose and random glucose. The ADA defines fasting as no caloric intake for at least 8 hours. Fasting plasma glucose results between 100 to 125 mg/dL indicate increased risk for diabetes (prediabetes). Fasting plasma glucose results greater than or equal to 126 mg/dL meet the criteria for diagnosis of diabetes. In the absence of unequivocal hyperglycemia, results should be confirmed by repeat testing. In a patient with classic symptoms of hyperglycemia or hyperglycemic crisis, random plasma glucose results greater than or equal to 200 mg/dL meet the criteria for diagnosis of diabetes. Reference: Standards of Medical Care in Diabetes 2016, [place] Diabetes Association. Diabetes Care. 2016.39(Suppl 1). Interpretation and review of laboratory results Abnormal [facility] Potassium [Moles/Vol] 4.7 mmol/L 3.7 - 5.1 mmol/L [facility] Protein [Mass/Vol] 7.4 g/dL 6.3 - 8.0 g/dL [facility] Sodium [Moles/Vol] 132 mmol/L Low 136 - 144 mmol/L [facility] Urea nitrogen [Mass/Vol] 14 mg/dL 7 - 21 mg/dL [facility] Albumin [Mass/Vol] 4.5 g/dL Normal 3.9-4.9 [facility] Comment on above: Order Comment: Speci men Type: BLOOD SPECIMENOrdering Facility: [facility] Address: [address] [place] [address] Performed By: #### 1 9123-9, 64130-3, 277- ####[facility] LABORATORYCLIA [id number] [place] [address] [place] ALP [Catalytic activity/Vol] 66 U/L Normal 34-123 [facility] Comment on above: Order Comment: Speci men Type: BLOOD SPECIMENOrdering Facility: [facility] Address: [address] [place] [address] Performed By: #### 1 9123-9, 07587-3, 277- ####[facility] LABORATORYCLIA [id number] [address] STATES OF [facility] ALT With P-5'-P [Catalytic activity/Vol] 20 U/L Normal 7-38 [facility] Comment on above: Order Comment: Speci men Type: BLOOD SPECIMENOrdering Facility: [facility] Address: [address] [place] [address] Performed By: #### 1 9123-9, 79356-4, 277- ####[facility] LABORATORYCLIA [id number] [address] STATES OF [facility] Anion gap [Moles/Vol] 10 mmol/L Normal 8-15 [facility] Comment on above: Order Comment: Speci men Type: BLOOD SPECIMENOrdering Facility: [facility] Address: [address] [place] [address] Performed By: #### 1 9123-9, 71236-0, 2777-1 ####[facility] LABORATORYCLIA [id number] [place] [address] [place] AST With P-5'-P [Catalytic activity/Vol] 26 U/L Normal 13-35 [facility] Comment on above: Order Comment: Speci men Type: BLOOD SPECIMENOrdering Facility: [facility] Address: [address] [place] [address] Performed By: #### 1 9123-9, 48497-0, 2776-02 ####[facility] LABORATORYCLIA [id number] [place] [address] [place] Bilirubin [Mass/Vol] 0.2 mg/dL Normal 0.2-1.3 [facility] Comment on above: Order Comment: Speci men Type: BLOOD SPECIMENOrdering Facility: [facility] Address: [address] [place] [address] Performed By: #### 1 9123-9, 59554-8, 2776-02 ####[facility] LABORATORYCLIA [id number] [place] [address] [place] Calcium [Mass/Vol] 9.5 mg/dL Normal 8.5-10.2 [facility] Comment on above: Order Comment: Speci men Type: BLOOD SPECIMENOrdering Facility: [facility] Address: [address] [place] [address] Performed By: #### 1 9123-9, , 2776-02 ####[facility] LABORATORYCLIA [id number] [place] [address] [place] Chloride [Moles/Vol] 101 mmol/L Normal 98-107 [facility] Comment on above: Order Comment: Speci men Type: BLOOD SPECIMENOrdering Facility: [facility] Address: [address] [place] [address] Performed By: #### 1 9123-9, 29559-4, 2776-02 ####[facility] LABORATORYCLIA [id number] [place] [address] [place] CO2 [Moles/Vol] 21 mmol/L Low 22-30 [facility] Comment on above: Order Comment: Speci men Type: BLOOD SPECIMENOrdering Facility: [facility] Address: [address] [place] [address] Performed By: #### 1 9123-9, 15239-0, 2777-1 ####[facility] HOSPITALIA [id number] [place] [id number] [place] OF [facility] Creatinine [Mass/Vol] 0.68 mg/dL Normal 0.58-0.96 [facility] Comment on above: Order Comment: Tracy jurado Type: BLOOD SPECIMENOrdering Facility: [facility] Address: [address] [place] [address] Performed By: #### 1 9123-9, 65465-1, 2777- ####[facility] HOSPITALIA [id number] [place] [id number] [facility] Creatinine and Glomerular filtration rate.predicted panel (S/P/Bld) 98 mL/min/1.73m??? Normal >=60 [facility] Comment on above: Order Comment: Tracy jurado Type: BLOOD SPECIMENOrdering Facility: [facility] Address: [address] [place] [address] Result Comment: Cindy mated Glomerular Filtration Rate (eGFR) is calculated using the 2020 CKD-EPI creatinine equation. This equation utilizes serum creatinine, sex, and age as parameters. The creatinine assay has traceable calibration to isotope dilution-mass spectrometry. Refer to KDIGO guidelines for clinical interpretation. In patients with unstable renal function, e.g. those with acute kidney injury, the eGFR may not accurately reflect actual GFR. Performed By: #### 1 9123-9, 65877-7, 2777 ####[facility] LABORATORYIA [id number] [place] [id number] [place] Glucose [Mass/Vol] 84 mg/dL Normal 74-99 [facility] Comment on above: Order Comment: Tracy jurado Type: BLOOD SPECIMENOrdering Facility: [facility] Address: [address] [place] [address] Result Comment: The [place] Diabetes Association (ADA) provides guidance for cutoff values for fasting glucose and random glucose. The ADA defines fasting as no caloric intake for at least 8 hours. Fasting plasma glucose results between 100 to 125 mg/dL indicate increased risk for diabetes (prediabetes). Fasting plasma glucose results greater than or equal to 126 mg/dL meet the criteria for diagnosis of diabetes. In the absence of unequivocal hyperglycemia, results should be confirmed by repeat testing. In a patient with classic symptoms of hyperglycemia or hyperglycemic crisis, random plasma glucose results greater than or equal to 200 mg/dL meet the criteria for diagnosis of diabetes. Reference: Standards of Medical Care in Diabetes 2016, [place] Diabetes [employer]. Diabetes Care. 2016.39(Suppl 1). Performed By: #### 1 9123-9, 83845-3, 2776- ####[facility] LABORATORYCLIA [id number] [place] [address] [place] Potassium [Moles/Vol] 4.7 mmol/L Normal 3.7-5.1 [facility] Comment on above: Order Comment: Tracy jurado Type: BLOOD SPECIMENOrdering Facility: [facility] Address: [address] [place] [address] Performed By: #### 1 9123-9, , 2776-02 ####[facility]OSPITALCLIA [id number] [place] [address] [place] Protein [Mass/Vol] 7.4 g/dL Normal 6.3-8.0 [facility] Comment on above: Order Comment: Tracy jurado Type: BLOOD SPECIMENOrdering Facility: [facility] Address: [address] [place] [address] Performed By: #### 1 9123-9, , 2776-02 ####[facility] LABORATORYCLIA [id number] [place] [address] [place] Sodium [Moles/Vol] 132 mmol/L Low 136-144 [facility] Comment on above: Order Comment: Tracy jurado Type: BLOOD SPECIMENOrdering Facility: [facility] Address: [address] [place] [address] Performed By: #### 1 9123-9, 05592-6, 2776- ####[facility] LABORATORYCLIA [id number] [place] [address] [place] Urea nitrogen [Mass/Vol] 14 mg/dL Normal 7-21 [facility] Comment on above: Order Comment: Speci men Type: BLOOD SPECIMENOrdering Facility: [facility] Address: [address] [place] [address] Performed By: #### 1 9123-9, 83819-4, 2777-1 ####[facility] LABORATORYCLIA [id number] [address] OF [facility] MAGNESIUMon 09-28-2023 Magnesium [Mass/Vol] 2.1 mg/dL 1.7 - 2 .3 mg/dL [facility] Magnesium SerPl-mCncon 09-27 Magnesium [Mass/Vol] 2.1 mg/dL Normal 1.7-2.3 [facility] Comment on above: Order Comment: Speci men Type: BLOOD SPECIMENOrdering Facility: [facility] Address: [address] [place] [address] Performed By: #### 1 9123-9, 31737-4, 2777-1 ####[facility] LABORATORYCLIA [id number] [address] [place] No Panel Informationon 09-27 Interpretation and review of laboratory results Normal [facility] PHOSPHORUS INORGANICon 09-27 Phosphate [Mass/Vol] 2.8 mg/dL 2.7 - 4 .8 mg/dL [facility] PTH INTACTon 09-28-2023 Parathyrin.intact [Mass/Vol] 24 pg/mL 15 - 65 pg/mL [facility] Comment on above: Test methodology for this assay has moved from Siemens Centaur XP to Kiah mik 8000 effective November 12, 2021. Please note there may be a change in the reporting units and/or reference range. PTH-Intact SerPl-mCncon 09-09 Parathyrin.intact [Mass/Vol] 24 pg/mL Normal 15-65 [facility] Comment on above: Order Comment: Speci men Type: BLOOD SPECIMENOrdering Facility: [facility] Address: [address] [place] [address] Result Comment: Test methodology for this assay has moved from Siemens Centaur XP to Kiah mik 8000 effective November 12, 2021. Please note there may be a change in the reporting units and/or reference range. Performed By: #### 2 731-8 ####[facility] LABORATORYCLIA [id number] [place] [address] [facility] Parathyrin.intact [Mass/Vol] on 09-28-2023 Interpretation and review of laboratory results Normal [facility] Phosphate SerPl-mCncon 09-27 Phosphate [Mass/Vol] 2.8 mg/dL Normal 2.7-4.8 [facility] Comment on above: Order Comment: Speci men Type: BLOOD SPECIMENOrdering Facility: [facility] Address: [address] [place] [address] Performed By: #### 1 9123-9, 41620-4, 2777-1 ####[facility] LABORATORYCLIA [id number] [place] [address] [facility] Naya 09-24-2023 CNPN Telephone (NEAGCLM) -------- MARY VALIENTE ([id number]) 1960 F [facility] Date Time Provider Department 09/24/23 ROSIO BUTTERFIELD I NEAGCLM During your visit today, we recorded the following information about you: Tyler Epstein, RN 09/24/2023 10:43 AM Signed I contacted the patient and informed her that we contacted her pain management office who confirmed that Dr. Cardoso does perform RFAs. She tells me she has upcoming visit with him this week and will discuss. Let her know I faxed over our office note with recommendations. We also discussed referral to endocrinology for management of osteoporosis switch forteo. We again discussed she would need to be on foreo for at least 3 months pre operatively. She was agreeable. Consult placed. I have asked her to contact me when she is scheduled with endocrinology so that she does not get lost to follow up. She understands. BRIDGETTE Basurto Nery S 09/25/2023 2:40 PM Signed Submitted Endo referral to [facility] portal. Confirmation number: [id number] Allergies As of Date: 09/24/2023 Noted Allergy Reaction BEE STING 06/21/2012 7 - Swelling CODEINE 06/21/2012 4 - Hives 8 - GI Upset HYDROCODONE-ACETAMINOPHE N 06/21/2012 11 - Vomiting Date Reviewed: 09/14/2023 Reviewed by: Samreen Nichols MA - Fully Assessed Primary Visit Diagnosis:Osteoporosis, unspecified osteoporosis type, unspecified pathological fracture presence [M81.0] Order(s):CONSULT TO OSTEOPOROSIS CLINIC () [[id number]] Order #: [id number]: 1 Prescriptions as of 09/25/2023 - gabapentin (NEURONTIN) 300 mg capsule Take 300 mg by mouth two times a day. - traZODone (DESYREL) 50 mg tablet - sennosides (LAXATIVE ORAL) Take by mouth. - oxyCODONE-acetaminophen (PERCOCET) 5-325 mg tablet - baclofen 10 mg tablet - sulfamethoxazole-trimeth oprim (BACTRIM DS) 800-160 mg per tablet Take 1 tablet by mouth once daily. - CALCIUM ORAL Take 1 capsule by mouth once daily. - Ascorbic Acid (VITAMIN C) 100 mg tablet Take 100 mg by mouth once daily. - Vitamin E, dl, acetate, (VITAMIN E) 400 unit capsule Take 400 Units by mouth once daily. - lysine 500 mg tab 500 mg. - mirtazapine (REMERON) 30 mg tablet Take 30 mg by mouth daily at bedtime. - cyanocobalamin 1,000 mcg Tab Take 1 tablet by mouth once daily. - Cholecalciferol, Vitamin D3, 5,000 unit cap Take 1 capsule by mouth once daily. 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] 08/27/2022 MSSA (methicillin susceptible Staphylococcus au*08/27/2022 S/P hardware removal [Z98.890] 10/08/2022 Chronic midline thoracic back pain [M54.6, G89.*09/03/2023 History of thoracic spinal fusion [Z98.1] 09/03/2023 Chronic neck pain [M54.2, G89.29] 09/03/2023 Encounter Status:Closed by TYLER EPSTEIN on 09/24/23 [facility] 09-23-2023 CNPN Telephone (NEAGCLM) -------- MARY VALIENTE ([id number]) 1960 F [facility] Date Time Provider Department 09/23/23 ROSIO BUTTERFIELD I NEAGCLM During your visit today, we recorded the following information about you: Tiffanie Shah RN 09/23/2023 9:54 AM Signed Spoke with Concepcion ([phone]) from Dr. Marshall's office. She stated that Dr. Marshall does not usually prescribe forteo and was not sure how this would work with insurance. Usually they refer to endocrinology for this. She is currently on prolia. I told her it looks like Dr. Butterfield recommended 3 months of forteo prior to surgery. I told her I would make Dr. Butterfield's team aware and we would get back to them on the plan going forward for patient. Concepcion stated that she would like us to call her back with plan so they are updated. Tiffanie Shah RN Allergies As of Date: 09/23/2023 Noted Allergy Reaction BEE STING 06/21/2012 7 - Swelling CODEINE 06/21/2012 4 - Hives 8 - GI Upset HYDROCODONE-ACETAMINOPHE N 06/21/2012 11 - Vomiting Date Reviewed: 09/14/2023 Reviewed by: Samreen Nichols MA - Fully Assessed Reason for Visit: Eye Clinic Manager - Other [3602] Prescriptions as of 09/23/2023 - gabapentin (NEURONTIN) 300 mg capsule Take 300 mg by mouth two times a day. - traZODone (DESYREL) 50 mg tablet - sennosides (LAXATIVE ORAL) Take by mouth. - oxyCODONE-acetaminophen (PERCOCET) 5-325 mg tablet - baclofen 10 mg tablet - sulfamethoxazole-trimeth oprim (BACTRIM DS) 800-160 mg per tablet Take 1 tablet by mouth once daily. - CALCIUM ORAL Take 1 capsule by mouth once daily. - Ascorbic Acid (VITAMIN C) 100 mg tablet Take 100 mg by mouth once daily. - Vitamin E, dl, acetate, (VITAMIN E) 400 unit capsule Take 400 Units by mouth once daily. - lysine 500 mg tab 500 mg. - mirtazapine (REMERON) 30 mg tablet Take 30 mg by mouth daily at bedtime. - cyanocobalamin 1,000 mcg Tab Take 1 tablet by mouth once daily. - Cholecalciferol, Vitamin D3, 5,000 unit cap Take 1 capsule by mouth once daily. 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] 08/27/2022 MSSA (methicillin susceptible Staphylococcus au*08/27/2022 S/P hardware removal [Z98.890] 10/08/2022 Chronic midline thoracic back pain [M54.6, G89.*09/03/2023 History of thoracic spinal fusion [Z98.1] 09/03/2023 Chronic neck pain [M54.2, G89.29] 09/03/2023 Encounter Status:Closed by TIFFANIE SHAH on 09/23/23 [facility] 09-22-2023 CNPN Telephone (NEAGCLM) -------- MARY VALIENTE ([id number]) 1960 F [facility] Date Time Provider Department 09/22/23 ROSIO BUTTERFIELD I NEAGCLM During your visit today, we recorded the following information about you: Tyler Epstein RN 09/22/2023 12:57 PM Signed Received a voicemail from Concepcion with Dr. Marshall's office. [phone] Attempted to call back and there was no answer. M asking for call back. Tyler Epstein RN Allergies As of Date: 09/22/2023 Noted Allergy Reaction BEE STING 06/21/2012 7 - Swelling CODEINE 06/21/2012 4 - Hives 8 - GI Upset HYDROCODONE-ACETAMINOPHE N 06/21/2012 11 - Vomiting Date Reviewed: 09/14/2023 Reviewed by: Samreen Nichols MA - Fully Assessed Reason for Visit: Eye Clinic Manager - Other [6891] Prescriptions as of 09/22/2023 - gabapentin (NEURONTIN) 300 mg capsule Take 300 mg by mouth two times a day. - traZODone (DESYREL) 50 mg tablet - sennosides (LAXATIVE ORAL) Take by mouth. - oxyCODONE-acetaminophen (PERCOCET) 5-325 mg tablet - baclofen 10 mg tablet - sulfamethoxazole-trimeth oprim (BACTRIM DS) 800-160 mg per tablet Take 1 tablet by mouth once daily. - CALCIUM ORAL Take 1 capsule by mouth once daily. - Ascorbic Acid (VITAMIN C) 100 mg tablet Take 100 mg by mouth once daily. - Vitamin E, dl, acetate, (VITAMIN E) 400 unit capsule Take 400 Units by mouth once daily. - lysine 500 mg tab 500 mg. - mirtazapine (REMERON) 30 mg tablet Take 30 mg by mouth daily at bedtime. - cyanocobalamin 1,000 mcg Tab Take 1 tablet by mouth once daily. - Cholecalciferol, Vitamin D3, 5,000 unit cap Take 1 capsule by mouth once daily. 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] 08/27/2022 MSSA (methicillin susceptible Staphylococcus au*08/27/2022 S/P hardware removal [Z98.890] 10/08/2022 Chronic midline thoracic back pain [M54.6, G89.*09/03/2023 History of thoracic spinal fusion [Z98.1] 09/03/2023 Chronic neck pain [M54.2, G89.29] 09/03/2023 Encounter Status:Closed by TYLER EPSTEIN on 09/22/23 [facility] 09-21-2023 [place] Telephone (NEAGCLM) -------- MARY VALIENTE ([id number]) 1960 F CHT Date Time Provider Department 09/21/23 ROSIO BUTTERFIELD I NEAGCLM During your visit today, we recorded the following information about you: Tyler Epstein, RN 09/21/2023 2:[address] Butterfield asked that I reach out to patient's PCP and see if they were agreeable to prescribing and managing forteo or if they recommended a specialist manage this. I called and spoke with RN that works with Dr. Marshall and was informed that they would ask Dr. Manzano and follow back up with me whether or not she was agreeable to the above plan. I also contacted patient's Pain Management physician, Dr. Cardoso with [facility] and confirmed that they do perform RFAs. Made Dr. Butterfield aware of the following conversations. Tyler Epstein RN Allergies As of Date: 09/21/2023 Noted Allergy Reaction BEE STING 06/21/2012 7 - Swelling CODEINE 06/21/2012 4 - Hives 8 - GI Upset HYDROCODONE-ACETAMINOPHE N 06/21/2012 11 - Vomiting Date Reviewed: 09/14/2023 Reviewed by: Samreen Nichols MA - Fully Assessed Reason for Visit: Eye Clinic Manager - Other [1850] Prescriptions as of 09/21/2023 - gabapentin (NEURONTIN) 300 mg capsule Take 300 mg by mouth two times a day. - traZODone (DESYREL) 50 mg tablet - sennosides (LAXATIVE ORAL) Take by mouth. - oxyCODONE-acetaminophen (PERCOCET) 5-325 mg tablet - baclofen 10 mg tablet - sulfamethoxazole-trimeth oprim (BACTRIM DS) 800-160 mg per tablet Take 1 tablet by mouth once daily. - CALCIUM ORAL Take 1 capsule by mouth once daily. - Ascorbic Acid (VITAMIN C) 100 mg tablet Take 100 mg by mouth once daily. - Vitamin E, dl, acetate, (VITAMIN E) 400 unit capsule Take 400 Units by mouth once daily. - lysine 500 mg tab 500 mg. - mirtazapine (REMERON) 30 mg tablet Take 30 mg by mouth daily at bedtime. - cyanocobalamin 1,000 mcg Tab Take 1 tablet by mouth once daily. - Cholecalciferol, Vitamin D3, 5,000 unit cap Take 1 capsule by mouth once daily. 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] 08/27/2022 MSSA (methicillin susceptible Staphylococcus au*08/27/2022 S/P hardware removal [Z98.890] 10/08/2022 Chronic midline thoracic back pain [M54.6, G89.*09/03/2023 History of thoracic spinal fusion [Z98.1] 09/03/2023 Chronic neck pain [M54.2, G89.29] 09/03/2023 Encounter Status:Closed by TYLER EPSTEIN on 09/21/23 Normal [facility] CBC W Auto Differential pane l (Bld)on 09-16-2023 Basophils (Bld) [#/Vol] 0.03 10*3/uL Normal <0.11 [facility] Comment on above: Order Comment: Speci men Type: BLOOD SPECIMEN Ordering Facility: [facility] Address: [address] [place] [address] Performed By: #### 5 7021-8 #### [facility] CLIA [id number] [address] [place] [address] [place] Basophils/100 WBC (Bld) 0.5 % Normal [facility] Comment on above: Order Comment: Speci men Type: BLOOD SPECIMEN Ordering Facility: [facility] Address: [address] [place] [address] Performed By: #### 5 7021-8 #### [facility] CLIA [id number] [address] [place] [address] [place] Differential cell count method Nom (Bld) Auto Normal [facility] Comment on above: Order Comment: Speci men Type: BLOOD SPECIMEN Ordering Facility: [facility] Address: [address] [place] [address] Performed By: #### 5 7021-8 #### [facility] CLIA [id number] [address] [place] [address] [place] Eosinophils (Bld) [#/Vol] 0.06 10*3/uL Normal <0.46 [facility] Comment on above: Order Comment: Speci men Type: BLOOD SPECIMEN Ordering Facility: [facility] Address: [address] [place] [address] Performed By: #### 5 7021-8 #### [facility] CLIA [id number] [address] [place] [address] [place] Eosinophils/100 WBC (Bld) 1.0 % Normal [facility] Comment on above: Order Comment: Speci men Type: BLOOD SPECIMEN Ordering Facility: [facility] Address: [address] [place] [address] Performed By: #### 5 7021-8 #### [facility] CLIA [id number] [address] [place] [address] [place] Erythrocyte distribution width (RBC) [Ratio] 12.9 % Normal 11.5-15.0 [facility] Comment on above: Order Comment: Speci men Type: BLOOD SPECIMEN Ordering Facility: [facility] Address: [address] [place] [address] Performed By: #### 5 7021-8 #### [facility] CLIA [id number] [address] [place] [address] [place] Hematocrit (Bld) [Volume fraction] 38.1 % Normal 36.0-46.0 [facility] Comment on above: Order Comment: Speci men Type: BLOOD SPECIMEN Ordering Facility: [facility] Address: [address] [place] [address] Performed By: #### 5 7021-8 #### [facility] CLIA [id number] [address] [place], [place] [address] [place] Hemoglobin (Bld) [Mass/Vol] 12.7 g/dL Normal 11.5-15.5 [facility] Comment on above: Order Comment: Speci men Type: BLOOD SPECIMEN Ordering Facility: [facility] Address: [address] [place] [address] Performed By: #### 5 7021-8 #### [facility] CLIA [id number] [address] [place] [address] [place] Immature granulocytes (Bld) [#/Vol] 10*3/uL Normal <0.10 [facility] Comment on above: Order Comment: Speci men Type: BLOOD SPECIMEN Ordering Facility: [facility] Address: [address] [place] [address] Performed By: #### 5 7021-8 #### [facility] CLIA [id number] [address] [place], [place] [address] [place] Immature granulocytes/100 WBC (Bld) 0.3 % Normal [facility] Comment on above: Order Comment: Speci men Type: BLOOD SPECIMEN Ordering Facility: [facility] Address: [address] [place] [address] Performed By: #### 5 7021-8 #### [facility] CLIA [id number] [address] [place], [place] [address] [place] Lymphocytes (Bld) [#/Vol] 1.19 10*3/uL Normal 1.00-4.00 [facility] Comment on above: Order Comment: Speci men Type: BLOOD SPECIMEN Ordering Facility: [facility] Address: [address] [place] [address] Performed By: #### 5 7021-8 #### [facility] CLIA [id number] [address] [place], [place] [address] [place] Lymphocytes/100 WBC (Bld) 18.9 % Normal [facility] Comment on above: Order Comment: Speci men Type: BLOOD SPECIMEN Ordering Facility: [facility] Address: [address] [place] [address] Performed By: #### 5 7021-8 #### [facility] CLIA [id number] [address] [place] [address] [place] [facility] MCH (RBC) [Entitic mass] 30.2 pg Normal 26.0-34.0 [facility] Comment on above: Order Comment: Speci men Type: BLOOD SPECIMEN Ordering Facility: [facility] Address: [address] [place] [address] Performed By: #### 5 7021-8 #### [facility] CLIA [id number] [address] [place] [address] [place] MCHC (RBC) [Mass/Vol] 33.3 g/dL Normal 30.5-36.0 [facility] Comment on above: Order Comment: Speci men Type: BLOOD SPECIMEN Ordering Facility: [facility] Address: [address] [place] [address] Performed By: #### 5 7021-8 #### [facility] CLIA [id number] [address] [place] [address] [place] MCV (RBC) [Entitic vol] 90.7 fL Normal 80.0-100.0 [facility] Comment on above: Order Comment: Speci men Type: BLOOD SPECIMEN Ordering Facility: [facility] Address: [address] [place] [address] Performed By: #### 5 7021-8 #### [facility] CLIA [id number] [address] [place] [address] [place] Monocytes (Bld) [#/Vol] 0.58 10*3/uL Normal <0.87 [facility] Comment on above: Order Comment: Speci men Type: BLOOD SPECIMEN Ordering Facility: [facility] Address: [address] [place] [address] Performed By: #### 5 7021-8 #### [facility] CLIA [id number] [address] [place] [address] [place] Monocytes/100 WBC (Bld) 9.2 % Normal [facility] Comment on above: Order Comment: Speci men Type: BLOOD SPECIMEN Ordering Facility: [facility] Address: [address] [place] [address] Performed By: #### 5 7021-8 #### [facility] CLIA [id number] [address] [place], [place] [address] [place] Neutrophils (Bld) [#/Vol] 4.40 10*3/uL Normal 1.45-7.50 [facility] Comment on above: Order Comment: Speci men Type: BLOOD SPECIMEN Ordering Facility: [facility] Address: [address] [place] [address] Performed By: #### 5 7021-8 #### [facility] CLIA [id number] [address] [place], [place] [address] [place] Neutrophils/100 WBC (Bld) 70.1 % Normal [facility] Comment on above: Order Comment: Speci men Type: BLOOD SPECIMEN Ordering Facility: [facility] Address: [address] [place] [address] Performed By: #### 5 7021-8 #### [facility] CLIA [id number] [address] [place], [place] [address] [place] Platelet mean volume (Bld) [Entitic vol] 8.3 fL Low 9.0-12.7 [facility] Comment on above: Order Comment: Speci men Type: BLOOD SPECIMEN Ordering Facility: [facility] Address: [address] [place] [address] Performed By: #### 5 7021-8 #### [facility] CLIA [id number] [address] [place] [address] [place] Platelets (Bld) [#/Vol] 311 10*3/uL Normal 150-400 [facility] Comment on above: Order Comment: Speci men Type: BLOOD SPECIMEN Ordering Facility: [facility] Address: [address] [place] [address] Performed By: #### 5 7021-8 #### [facility] CLIA [id number] [address] [place] [address] [place] RBC (Bld) [#/Vol] 4.20 10*6/uL Normal 3.90-5.20 [facility] Comment on above: Order Comment: Speci men Type: BLOOD SPECIMEN Ordering Facility: [facility] Address: [address] [place], [place] [address] Performed By: #### 5 7021-8 #### [facility] CLIA [id number] [address] [place] [address] [place] WBC (Bld) [#/Vol] 6.28 10*3/uL Normal 3.70-11.00 [facility] Comment on above: Order Comment: Speci men Type: BLOOD SPECIMEN Ordering Facility: [facility] Address: [address] [place] [address] Performed By: #### 5 7021-8 #### [facility] CLIA [id number] [address] [place], [place] [address] [place] CRP SerPl-mCncon 09-16-2023 CRP [Mass/Vol] mg/L Normal <1.0 [facility] Comment on above: Order Comment: Speci men Type: BLOOD SPECIMEN Ordering Facility: [facility] Address: [address] [place], [place] [address] Performed By: #### 1 988-5 #### [facility] CLIA [id number] [address] [place] [address] [place] ESR Westergren method (Bld) [Velocity]on 09-16-2023 ESR (Bld) [Velocity] 13 mm/h Normal 0-30 [facility] Comment on above: Order Comment: Speci men Type: BLOOD SPECIMEN Ordering Facility: [facility] Address: [address] [place], [place] [address] Performed By: #### 4 537-7 #### [facility] CLIA [id number] [facility] [place] [address] [facility] [place] 09-15-2023 CNPN Telephone (NEAGCLM) -------- MARY VALIENTE ([id number]) 1960 F T Date Time Provider Department 09/15/23 ROSIO BUTTERFIELD I NEAGCLM During your visit today, we recorded the following information about you: Tyler Epstein RN 09/15/2023 9:40 AM Signed I contacted the Dr. Marshall's office and spoke with RN. Asked her about current management of osteoporosis and when most recent bone density scan was obtained. I was informed most recent dexa scan was obtained 09/05/2021. Requested that they fax results to me. Provided our fax information. She also stated patient had been on injections of Prolia every 6 months since October of 2021 with most recent injection 08/10/2023. Tyler Epstein RN Allergies As of Date: 09/15/2023 Noted Allergy Reaction BEE STING 06/21/2012 7 - Swelling CODEINE 06/21/2012 4 - Hives 8 - GI Upset HYDROCODONE-ACETAMINOPHE N 06/21/2012 11 - Vomiting Date Reviewed: 09/14/2023 Reviewed by: Samreen Nichols MA - Fully Assessed Reason for Visit: Eye Clinic Manager - Other [4404] Prescriptions as of 09/15/2023 - gabapentin (NEURONTIN) 300 mg capsule Take 300 mg by mouth two times a day. - traZODone (DESYREL) 50 mg tablet - sennosides (LAXATIVE ORAL) Take by mouth. - oxyCODONE-acetaminophen (PERCOCET) 5-325 mg tablet - baclofen 10 mg tablet - sulfamethoxazole-trimeth oprim (BACTRIM DS) 800-160 mg per tablet Take 1 tablet by mouth once daily. - CALCIUM ORAL Take 1 capsule by mouth once daily. - Ascorbic Acid (VITAMIN C) 100 mg tablet Take 100 mg by mouth once daily. - Vitamin E, dl, acetate, (VITAMIN E) 400 unit capsule Take 400 Units by mouth once daily. - lysine 500 mg tab 500 mg. - mirtazapine (REMERON) 30 mg tablet Take 30 mg by mouth daily at bedtime. - cyanocobalamin 1,000 mcg Tab Take 1 tablet by mouth once daily. - Cholecalciferol, Vitamin D3, 5,000 unit cap Take 1 capsule by mouth once daily. 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] 08/27/2022 MSSA (methicillin susceptible Staphylococcus au*08/27/2022 S/P hardware removal [Z98.890] 10/08/2022 Chronic midline thoracic back pain [M54.6, G89.*09/03/2023 History of thoracic spinal fusion [Z98.1] 09/03/2023 Chronic neck pain [M54.2, G89.29] 09/03/2023 Encounter Status:Closed by TYLER EPSTEIN on 09/15/23 [facility] 09-14-2023 CNOV Office Visit (NEAGCL M) -------- MARY VALIENTE ([id number]) 1960 F [facility] Date Time Provider Department 09/14/23 8:45 AM ROSIO BUTTERFIELD I NEAGCLM During your visit today, we recorded the following information about you: Pulse Respiration Blood pressure Weight 60/minute 16/minute 124/71 51.8 kg Rosio Butterfield I, MD 09/14/2023 11:35 AM Signed NEUROSURGERY FOLLOW UP OFFICE NOTE Chair, Clinical Neurosciences Director, Spinal Neurosurgery [facility] Date of visit: September 14, 2023 Patient Name: Ms.Agnes Guerline Valiente Date of : 1960 Current Age: [age] year old Sex: female MRN/E# [id number] Last Office Visit: 09/03/2023 Chief Complaint: Patient presents with: Established Patient Past Medical/Surgical History: Mary Valiente is a 62 year old female with a history of De Quervain's disease and multiple thoracolumbar spinal fusions. Surgical Risk Factors: Smoking status: Denies Anticoagulants/antiplate lets: No Diabetic: No BMI: 23.18 HPI: Patient has history of previous extensive thoracic fusions( T1-Pelvis fusion) from [id number] London which was complicated by MSSA. She presented to [facility] on 05/08/2022 with purulent discharge from the cranial end of the old thoracic incision. She underwent a irrigation debridement on 05/09/2022. Cultures at that time were negative. She was then seen in the office on 08/25/2022 by Sumeet Leger PA-C and reported a 2-week history of thoracic wound opening at new location. There was purulent drainage underneath bra line. A repeat IANDD of thoracic wound was performed on 08/26/2022 with removal of hardware. She refused a PICC line during admission. She was placed on cephalexin. Continued to follow up with ID who recommended continue on a prophylactic antibiotic. She was monitored routinely in office for follow-up in which her incision appeared to be healing nicely. She was last seen on 11/19/2022 for routine 3-month postoperative follow-up and reported she was evaluated by infectious disease on 10/27/2022 and instructed to continue chronic cefadroxil given her history. Radiographic imaging demonstrated satisfactory hardware. Patient reported upper back tightness, she was recommended to participate in a course of physical therapy, patient was hesitant to do so and was to contact her office if she wished to proceed. She was asked to follow-up on an as-needed basis with any new or worsening symptoms. She presented to the office 09/03/2023 and was seen by Bryanna Webber APRN, CNP. She reported I got a screw loose. She reported since last office visit she had continued pain in neck and middle back that had progressively worsened about 5 days prior without known trauma or injury. She felt that her hardware screw had loosened which was causing her pain. Pain was primarily midline in upper thoracic region and radiated into bilateral shoulder blades and upwards into bilateral trapezius regions and midline posterior neck. She denied pain radiating into arms or legs. She reported chronic gait difficulty, no recent falls. She continued to take prophylactic antibiotic as recommended by infectious disease, Bactrim daily. She was asked to obtain CT of the cervical and thoracic spine as well as scoliosis x-rays. She presents to the office today for follow up and image review. She states her symptoms are unchanged. Complains of neck pain into the bilateral posterior scapular regions that radiates into the thoracic region above the bra strap line bilaterally. She states this is the worst region of pain. She has noticed pain into the triceps region bilaterally. Denies any hand difficulties or balance/gait issues. She denies any loss of bowel/bladder. She does report intermittent fevers and chills that started at unknown time. She has not had recent follow up with infectious disease but reports compliance with antibiotic therapy. She reports she only takes half a pill due to GI side effects. PREVIOUS CONSERVATIVE TREATMENT: - Medication: Percocet and Baclofen, recently started on Gabapentin per pain management - Physical therapy: Previous participation at [facility] which significantly worsened pain and unable to tolerate participation. - Pain Management: Follows with Dr. Cardoso at [facility] PREVIOUS SPINE SURGERY: -multiple spine surgeries [id number] London complicated by staph infection, hardware malfunction. T1-Pelvis fusion -IANDD of upper thoracic wound on 05/09/[address] Butterfield -IANDD of thoracic wound and removal of hardware on 08/26/[address] Butterfield PAIN EVALUATION 09/14/2023 0848 Pain Level: 10 Pt states that it's higher than a 10 Pain Location: Neck upper shoulders - upper back - mid back Description: Stabbing;Burning;Sharp Duration Units: -- too long per pt Frequency: Continuous Intervention/Comfort measure: (more content not included)... Normal [facility] CT CERVICAL SPINE WO IVCONon 09-14-2023 CT CERVICAL SPINE WO IVCON * * *Final Report* * * DATE OF EXAM: Sep 14 2023 8:54AM A1C 0505 - CT CERVICAL SPINE WO IVCON / PROCEDURE REASON: multiple diagnoses * * * * Physician Interpretation * * * * EXAMINATION: CT CERVICAL SPINE WO IVCON, CT THORACIC SPINE WO IVCON CLINICAL HISTORY: Arthrodesis status Spinal stenosis of cervical region TECHNIQUE: Spiral, high resolution axial unenhanced images were obtained from the skull base to the thoracolumbar junction with sagittal and coronal planar reconstructions. MQ: [id number] CT Radiation dose: Integrated Dose-Length Product (DLP) for this visit = 654.63 mGy*cm. CT Dose Reduction Employed: Automated exposure control (AEC) COMPARISON: CT thoracic spine 08/25/2022 RESULT: CERVICAL: Counting reference: Craniocervical junction. Anatomic Variants: None. Business Economist (topogram) images: No additional findings. Alignment: 2 mm retrolisthesis at C3-4 and C4-5 due to facet hypertrophy. Craniocervical junction: Craniocervical junction is normal. Bone marrow / fracture: Postsurgical changes from T1 through upper most posterior fusion. No hardware fracture or loosening. No evidence of a lytic or blastic process in the visualized spine. There is C7 superior endplate compression deformity. About 30% loss of height. No retropulsion. This is new from 08/25/2022. Cervical soft tissues: The paraspinal soft tissues planes are maintained. Degenerative changes in the cervical spine. Multilevel mild canal stenosis. Moderate foraminal stenosis at the right C5-6, severe at left C5-6 THORACIC: Counting reference: Craniocervical junction. The more conventional family service counselor that include the lumbosacral junction are not available for comparison. For the purposes of this report, Assume the first normal thoracic rib is at the T1 level. Business Economist (topogram) images: No additional findings. Alignment: Accentuated thoracic kyphosis. Bone marrow / fracture: No evidence of a lytic or blastic process in the visualized spine. No acute fracture Stable vertebral body compression deformities at T5-T7. No significant retropulsion.. Mild nodular opacities in the right upper lobe may represent infectious/inflammatory changes. Canal and foramina: Mild bony canal stenosis C4-5, mild to moderate at T12-L1. No high-grade bony foraminal stenosis. IMPRESSION: Age indeterminate C7 superior endplate compression deformity is new from 08/25/2022. No retropulsion. Stable extensive thoracic and upper lumbar spine posterior fusion. No hardware failure. No acute findings in the thoracic spine. Degenerative changes. Mild nodular opacities in the right upper lobe may represent infectious/inflammatory changes. Cervical Anatomic Variant: None. Assume 7 cervical vertebrae with counting from the craniocervical junction. Anatomic Thoracic/Lumbar Variant: Assume first normal thoracic rib is the T1 level. Parking Enforcement Manager: INEZ Transcribe Date/Time: Sep 16 2023 9:43A Dictated by : WAYNE MARTINEZ MD This examination was interpreted and the report reviewed and electronically signed by: WAYNE MARTINEZ MD on Sep 16 2023 10:06AM EST [id number] Normal [facility] CT THORACIC SPINE WO IVCONon 09-14-2023 CT THORACIC SPINE WO IVCON * * *Final Report* * * DATE OF EXAM: Sep 14 2023 8:54AM A1C 0514 - CT THORACIC SPINE WO IVCON / PROCEDURE REASON: multiple diagnoses * * * * Physician Interpretation * * * * EXAMINATION: CT CERVICAL SPINE WO IVCON, CT THORACIC SPINE WO IVCON CLINICAL HISTORY: Arthrodesis status Spinal stenosis of cervical region TECHNIQUE: Spiral, high resolution axial unenhanced images were obtained from the skull base to the thoracolumbar junction with sagittal and coronal planar reconstructions. MQ: [id number] CT Radiation dose: Integrated Dose-Length Product (DLP) for this visit = 654.63 mGy*cm. CT Dose Reduction Employed: Automated exposure control (AEC) COMPARISON: CT thoracic spine 08/25/2022 RESULT: CERVICAL: Counting reference: Craniocervical junction. Anatomic Variants: None. Business Economist (topogram) images: No additional findings. Alignment: 2 mm retrolisthesis at C3-4 and C4-5 due to facet hypertrophy. Craniocervical junction: Craniocervical junction is normal. Bone marrow / fracture: Postsurgical changes from T1 through upper most posterior fusion. No hardware fracture or loosening. No evidence of a lytic or blastic process in the visualized spine. There is C7 superior endplate compression deformity. About 30% loss of height. No retropulsion. This is new from 08/25/2022. Cervical soft tissues: The paraspinal soft tissues planes are maintained. Degenerative changes in the cervical spine. Multilevel mild canal stenosis. Moderate foraminal stenosis at the right C5-6, severe at left C5-6 THORACIC: Counting reference: Craniocervical junction. The more conventional family service counselor that include the lumbosacral junction are not available for comparison. For the purposes of this report, Assume the first normal thoracic rib is at the T1 level. Business Economist (topogram) images: No additional findings. Alignment: Accentuated thoracic kyphosis. Bone marrow / fracture: No evidence of a lytic or blastic process in the visualized spine. No acute fracture Stable vertebral body compression deformities at T5-T7. No significant retropulsion.. Mild nodular opacities in the right upper lobe may represent infectious/inflammatory changes. Canal and foramina: Mild bony canal stenosis C4-5, mild to moderate at T12-L1. No high-grade bony foraminal stenosis. IMPRESSION: Age indeterminate C7 superior endplate compression deformity is new from 08/25/2022. No retropulsion. Stable extensive thoracic and upper lumbar spine posterior fusion. No hardware failure. No acute findings in the thoracic spine. Degenerative changes. Mild nodular opacities in the right upper lobe may represent infectious/inflammatory changes. Cervical Anatomic Variant: None. Assume 7 cervical vertebrae with counting from the craniocervical junction. Anatomic Thoracic/Lumbar Variant: Assume first normal thoracic rib is the T1 level. Parking Enforcement Manager: PSCB Transcribe Date/Time: Sep 16 2023 9:43A Dictated by : WAYNE MARTINEZ MD This examination was interpreted and the report reviewed and electronically signed by: WAYNE MARTINEZ MD on Sep 16 2023 10:06AM EST [id number] Normal [facility] XR SCOLIOSIS 2V PA STAND/LAT on 09-08-2023 XR SCOLIOSIS 2V PA STAND/LAT * * *Final Report* * * DATE OF EXAM: Sep 08 2023 9:45AM RHX [id number] - XR SCOLIOSIS 2V PA STAND/LAT / PROCEDURE REASON: multiple diagnoses * * * * Physician Interpretation * * * * XR SCOLIOSIS 2V PA STAND/LAT Ordering Physician: BRYANNA WEBBER Clinical Statement: History of scoliosis surgery. Comparison 12/28/2020 FINDINGS: Extensive postoperative spinal fusion from the T1 level to the pelvis and anterior interbody fusion at the L4-5 and L5-S1 levels.. The hardware appears intact and in unchanged position. Compression deformity at the T5 level with adjacent degenerative change is similar to the prior study. Mild wedging of lower thoracic vertebral bodies also unchanged. There is no significant scoliosis. No paraspinal soft tissue swelling or acute fractures. Lungs are clear. IMPRESSION: Stable postoperative and chronic degenerative change. No significant scoliosis. Chronic wedging of T5, unchanged. Parking Enforcement Manager: INEZ Transcribe Date/Time: Sep 12 2023 8:19A Dictated by : GEOVANI MARR MD This examination was interpreted and the report reviewed and electronically signed by: GEOVANI MARR MD on Sep 12 2023 8:24AM EST [id number] [facility] CNOVon 09-03-2023 CNOV Office Visit (ROGER Cunha) -------- MARY VALIENTE ([id number]) 1960 F T Date Time Provider Department 09/03/23 11:00 AM BRYANNA WEBBER NEAGCLM During your visit today, we recorded the following information about you: Temperature Pulse Blood pressure Weight 97.8 degrees 74/minute 128/72 50.3 kg Height 1.473 m Bryanna Webber APRN.CNP 09/03/2023 4:17 PM Signed SPINE SURGERY FOLLOW UP NOTE LAINE Murguia Date of visit: September 03, 2023 Patient Name: Ms.Mary Valiente Date of : 1960 Current Age: [age] year old Sex: female MRN/E# [id number] Last Office Visit: Visit date not found Chief Complaint: Patient presents with: Established Patient HPI Patient has history of previous extensive thoracic fusions( T1-Pelvis fusion) from 1872-[address] London which was complicated by MSSA. She presented to [facility] on 05/08/2022 with purulent discharge from the cranial end of the old thoracic incision. She underwent a irrigation debridement on 05/09/[address] Butterfield. Cultures at that time were negative. She was then seen in the office on 08/25/2022 by Sumeet Leger PA-C and reported a 2-week history of thoracic wound opening at new location. There was purulent drainage underneath bra line. Case was discussed with Dr. Butterfield who recommended a repeat IANDD of thoracic wound which was performed on 08/26/2022 with removal of hardware. She refused a PICC line during admission. She was placed on cephalexin. Continued to follow up with ID who recommended continue on a prophylactic antibiotic. She was monitored routinely in office for follow-up in which her incision appeared to be healing nicely. She was last seen on 11/19/2022 Dr. Butterfield for routine 3-month postoperative follow-up and reported she was evaluated by infectious disease on 10/27/2022 and instructed to continue chronic cefadroxil given her history. Radiographic imaging demonstrated satisfactory hardware. Patient reported upper back tightness, she was recommended to participate in a course of physical therapy, patient was hesitant to do so and was to contact her office if she wished to proceed. She was asked to follow-up on an as-needed basis with any new or worsening symptoms. She presents today and reports I got a screw loose. She reports since last office visit she has had continue pain in neck and middle back that has progressively worsened about 5 days ago without known trauma or injury. She feels that her hardware screw has loosened which is causing her pain. Pain is primarily midline in upper thoracic region and radiates into bilateral shoulder blades and upwards into bilateral trapezius regions and midline posterior neck. She denies pain radiating into arms or legs. She reports chronic gait difficulty, no recent falls. She continues to take prophylactic antibiotic as recommended by infectious disease, Bactrim daily. PREVIOUS CONSERVATIVE TREATMENT: - Medication: Percocet and Baclofen, recently started on Gabapentin per pain management - Physical therapy: Previous participation at [place] which significantly worsened pain and unable to tolerate participation. - Pain Management: Follows with Dr. Cardoso at [place] PREVIOUS SPINE SURGERY: -multiple spine surgeries [id number] London complicated by staph infection, hardware malfunction. T1-Pelvis fusion -IANDD of upper thoracic wound on 05/09/[address] Butterfield -IANDD of thoracic wound and removal of hardware on 08/26/[address] Butterfield Surgical Risk Factors: Smoking status: Denies Anticoagulants/antiplate lets: No Diabetic: No BMI: 23.18 PAIN EVALUATION 09/03/2023 1045 Pain Level: 8 Pain Location: Back-Middle Description: Spasm;Throbbing;Stabbing ;Stiffness;Aching Duration Units: Weeks Frequency: Continuous Intervention/Comfort measure: Medication PAST MEDICAL HISTORY Diagnosis Date De Quervain's disease (radial styloid tenosynovitis) 06/21/2012 PAST SURGICAL HISTORY Procedure Laterality Date BACK SURGERY HX 08/26/2022 Incision and debridement onset of thoracic wounds, removal of hardware LAPAROSCOPY SURG CHOLECYSTECTOMY 04/05/2009 Cholecystectomy, lap NEUROPLASTY AND/TRANSPOS MEDIAN NRV CARPAL TUNNE 06/09/2010 Carpal tunnel decomp, right NEUROPLASTY AND/TRANSPOS MEDIAN NRV CARPAL TUNNE 08/06/2012 Carpal tunnel decomp left and DeQuervain's release VAGINAL HYSTERECTOMY UTERUS 250 GM/< 03/12/2001 Hysterectomy, vaginal FAMILY HISTORY Problem Relation Age of Onset Breast Cancer Father other (brain tumor) Father Breast Cancer Paternal Grandmother Breast Cancer Paternal Aunt Breast Cancer Paternal Aunt ALLERGIES Allergen Reactions Bee Sting Swelling Codeine Hives Vicodin [Hydrocodon* Vomiting Current Outpatient Medications Medication Sig Dispense Refill oxyCODONE-acetaminophen (PERCOCET) 5-325 mg tablet baclofen 10 (more content not included)... Normal [facility] Laboratory - Microbiology an d Antimicrobial susceptibilityOrdered By: Mariia Claire on 05-12-2023 SARS-CoV-2 (COVID-19) RNA PHILL+probe Ql (Unsp spec) Influenzae A [facility] No Panel Informationon 05-11 Influenza Types A,B Rapid (Clinic) Negative [facility] CNOVon 04-13-2023 CNOV Office Visit ([facility]AS ) -------- MARY VALIENTE ([id number]) 1960 F [facility] Date Time Provider Department 04/13/23 8:45 AM [facility] During your visit today, we recorded the following information about you: Temperature Pulse Respiration Blood pressure 97.9 degrees 91/minute 20/minute 132/84 Jose Martin Hagen APRN.MANAGER NICU 04/13/2023 10:34 AM Signed Body aches/Pain/Fever Acetaminophen/Tylenol not to exceed 3000mg in a 24 hour period and or Ibuprofen/Motrin 600mg every 6 hours not to exceed 2400mg in a 24 hour period if no history of gastrointestinal bleeding or ulcers for pain/discomfort of fever. Sore throat: Warm beverages with honey, salt water gargles, Chloraseptic spray, throat lozenges. Congestion: Over the counter medications like Tylenol Cold and Flu, Theraflu or Sudafed. Nasal sprays like Flonase or normal saline can also help. Coricidin for patient with Hypertension (high blood pressure) If any worsening of condition: shortness of breath, chest pain or not able to keep down fluids please go to ER. Jose Martin Hagen APRN.MANAGER NICU 04/13/2023 10:46 AM Signed Mary Cunha Rocco is a 62 year old female who presents with Headache (Nausea x 4 days) 62-year-old female presents today with nausea/vomiting/headache for the last 4 days. Patient states generalized weakness kind of feels worse than when she had COVID. She denies any fevers but states she has had chills patient said she only had diarrhea 1 day on Thursday. Patient states nauseated and does not feel like eating or drinking. Headache Associated symptoms include nausea and vomiting. 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 30 tablet 5 CALCIUM ORAL Take 1 capsule by mouth once daily. Ascorbic Acid (VITAMIN C) 100 mg tablet Take 100 mg by mouth once daily. Vitamin E, dl, acetate, (VITAMIN E) 400 unit capsule Take 400 Units by mouth once daily. lysine 500 mg tab 500 mg. mirtazapine (REMERON) 30 mg tablet Take 30 mg by mouth daily at bedtime. cyanocobalamin 1,000 mcg Tab Take 1 tablet by mouth once daily. 0 Cholecalciferol, Vitamin D3, 5,000 unit cap Take 1 capsule by mouth once daily. 0 ondansetron (ZOFRAN) 4 mg tablet Take 1 tablet by mouth every 8 hours as needed for nausea/vomiting for up to 5 days. 10 tablet 0 No current facility-administered medications for this visit. Social History Tobacco Use Smoking status: Former Packs/day: 0.50 Years: 20.00 Additional pack years: 0.00 Total pack years: 10.00 Types: Cigarettes Quit date: 08/09/1996 Years since quittin.6 Smokeless tobacco: Former Substance Use Topics Alcohol use: Not Currently Comment: 2 drinks per month Drug use: No Alcohol Use: Not Currently (2 drinks per month ) Tobacco Use: 0.5 packs/day, for 20 years. Quit 08/09/1996. Types: Cigarettes FAMILY HISTORY Problem Relation Age of Onset Breast Cancer Father other (brain tumor) Father Breast Cancer Paternal Grandmother Breast Cancer Paternal Aunt Breast Cancer Paternal Aunt Review of Systems Respiratory: Positive for cough. Gastrointestinal: Positive for nausea and vomiting. Neurological: Positive for headaches. All other systems reviewed and are negative. BP 132/84 Pulse 91 Temp 97.9 Resp 20 SpO2 97% Physical Exam Vitals and nursing note reviewed. Constitutional: General: She is not in acute distress. Appearance: Normal appearance. She is normal weight. She is not ill-appearing, toxic-appearing or diaphoretic. HENT: Head: Normocephalic. Right Ear: Tympanic membrane, ear canal and external ear normal. Left Ear: Tympanic membrane, ear canal and external ear normal. Nose: Nose normal. No congestion or rhinorrhea. Mouth/Throat: Mouth: Mucous membranes are moist. Pharynx: Oropharynx is clear. No oropharyngeal exudate or posterior oropharyngeal erythema. Cardiovascular: Rate and Rhythm: Normal rate and regular rhythm. Pulses: Normal pulses. Heart sounds: Normal heart sounds. Pulmonary: Effort: Pulmonary effort is normal. No respiratory distress. Breath sounds: Normal breath sounds. No stridor. No wheezing, rhonchi or rales. Chest: Chest wall: No tenderness. Abdominal: General: Abdomen is flat. Bowel sounds are normal. (more content not included)... Normal [facility] COVID AND INFLUENZA A/B & RS V NAAT, EXPEDITEDon 04-13-2023 FLUAV RNA PHILL+probe Ql (Unsp spec) Not detected Not Detected [facility] FLUBV RNA PHILL+probe Ql (Unsp spec) Not detected Not Detected [facility] RSV A RNA PHILL+probe Ql (Unsp spec) Not detected Not Detected [facility] SARS-CoV-2 (COVID-19) RNA PHILL+probe Ql (Resp) Not detected See comment [facility] FLUABV+SARS-CoV-2+RSV Pnl Re sp PHILL+probeon 04-13-2023 FLUABV+SARS-CoV-2+RSV Pnl Resp PHILL+probe COVID 19 RESULT: Not detected The method used is RT-PCR or an equivalent NAAT method. Reference Range(the expected result in uninfected individuals): Not detected INFLUENZA A PCR: Not detected INFLUENZA B PCR: Not detected RSV PCR: Not detected Normal [facility] Comment on above: Performed By: #### 9 5941-1 #### [facility] CLIA [id number] [address] [place], [place] [id number] [place] Laboratory - Drug toxicology Ordered By: Boubacar Cardoso on 03-10-2023 Amphetamines Ql (U) Negative <1000 [facility] Benzod[facility]ines Ql (U) Negative < 200 ng/mL [facility] Cannabinoids Screen Ql (U) Positive < 50 ng/mL [facility] Cocaine Ql (U) Negative < 300 ng/mL [facility] Opiates Ql (U) Negative < 300 ng/mL [facility] No Panel InformationOrdered By: Boubacar Cardoso on 03-10-2023 MDMA (Ecstasy) Screen Negative < 500 ng/mL [facility] Miscellaneous Test See comment [facility] Comment on above: 193371 6+OXYCODONE-B UND (ng/mL) DRUG RESULT SCREEN CUTOFF____ Amphetamines,Urine Negative ng/mL 1000 Amphetamine test includes Amphetamine and Methamphetamine.Barbiturates Negative ng/mL 200Benzodiazepines Negative ng/mL 200Cannabinoid POSITIVE ng/mL 20 Carboxy THC COnf, MS, UR 51 ng/mL 10Cocaine (Metab) Negative ng/mL 300Opiates Negative ng/mL 300 Opiates test includes Codeine, Morphine, Hydromorphone, Hydrocodone. Oxycodone/Oxymorphone,Urine POSITIVE ng/mL 300 Test includes Oxycodone and Oxymorphone. Oxycodone Positive Oxycodone Conf, MS, UR 1634 ng/mL 300 Oxymorphone Positive Oxymorphone Conf, MS, UR 1346 ng/mL 300 TESTING PERFORMED AT [facility]. ORIGINAL REPORT ON FILE IN LAB CONTAINS ADDITIONAL TEST SITE INFORMATION. Urine Barbiturates Screen Negative < 200 ng/mL [facility] Urine Drug Screen Comment [facility] Comment on above: CONFIRMATORY TESTING FOR ALL POSITIVE URINE DRUG SCREENRESULTS WILL ONLY BE SENT OUT UPON PHYSICIAN ORDER. VISTA Urine Drug Screen methods provide only preliminaryanalytical test results. A more specific alternate chemicalmethod must be used in order to obtain a confirmedanalytical result. Gas chromatography/mass spectrometery(GC/MS) is the preferred confirmatory method. Clinicalconsideration and professional judgement should be appliedto any drug of abuse test result, particularly whenpreliminary positive results are used. URINE TCA TESTING MUST BE ORDERED SEPARATELY. USE TESTMNEMONIC: [facility] Urine Methadone Screen Negative < 300 ng/mL [facility] Urine phencyclidine (PCP) de tectionOrdered By: Boubacar Cardoso on 03-10-2023 Phencyclidine Ql (U) Negative < 25 ng/mL [facility] CBC WITH DIFFERENTIALon 12-11 Basophils (Bld) [#/Vol] 0.00 10*3/uL Normal 0.00-0.20 [email or web address] Comment on above: Performed By: #### C BCDSAT #### [facility] [address] [place] [address] [place] [address] Basophils/100 WBC (Bld) 0.5 % Normal <=1.9 [email or web address] Comment on above: Performed By: #### C BCDSAT #### [facility] [address] [place] [address] [place] [address] Eosinophils (Bld) [#/Vol] 0.00 10*3/uL Normal 0.00-0.70 [email or web address] Comment on above: Performed By: #### C BCDSAT #### [facility] [address] [place] [address] [place] [address] Eosinophils/100 WBC (Bld) 0.0 % Low 0.1-4.0 [email or web address] Comment on above: Performed By: #### C BCDSAT #### [facility] [address] [place] [address] [place] [address] Erythrocyte distribution width (RBC) [Ratio] 13.1 % Normal 11.5-14.5 [email or web address] Comment on above: Performed By: #### C BCDSAT #### [facility] [address] [place] [address] [place] [address] Hematocrit (Bld) [Volume fraction] 41.1 % Normal 36.0-46.0 [facility] Comment on above: Performed By: #### C BCDSAT #### [facility] [address] [place] [address] [place] [address] Hemoglobin (Bld) [Mass/Vol] 13.7 g/dL Normal 12.0-15.0 [facility] Comment on above: Performed By: #### C BCDSAT #### [facility] [address] [place] [address] [place] [address] Lymphocytes (Bld) [#/Vol] 1.10 10*3/uL Normal 1.00-4.80 [facility] Comment on above: Performed By: #### C BCDSAT #### [facility] [address] [place] [address] [place] [address] Lymphocytes/100 WBC (Bld) 10.9 % Low 24.0-44.0 [facility] Comment on above: Performed By: #### Janet BCDSAT #### [facility] [address] [place] [address] [place] [address] MCH (RBC) [Entitic mass] 30.8 pg Normal 26.0-34.0 [facility] Comment on above: Performed By: #### C BCDSAT #### [facility] [address] [place] [address] [place] [address] MCHC (RBC) [Mass/Vol] 33.3 g/dL Normal 32.0-35.9 [facility] Comment on above: Performed By: #### C BCDSAT #### [facility] [address] [place] [address] [place] [address] MCV (RBC) [Entitic vol] 93 fL Normal 80-100 [facility] Comment on above: Performed By: #### C BCDSAT #### [facility] [address] [place] [address] [place] [address] Monocytes (Bld) [#/Vol] 0.50 10*3/uL Normal 0.20-1.00 [facility] Comment on above: Performed By: #### C BCDSAT #### [facility] [address] [place] [address] [place] [address] Monocytes/100 WBC (Bld) 5.1 % Normal 2.0-11.0 [facility] Comment on above: Performed By: #### C BCDSAT #### [facility] [address] [place] [address] [place] [address] Neutrophils (Bld) [#/Vol] 8.70 10*3/uL High 1.50-8.00 [facility] Comment on above: Performed By: #### C BCDSAT #### [facility] [address] [place] [address] [place] [address] Neutrophils/100 WBC (Bld) 83.5 % High 31.0-76.0 [facility] Comment on above: Performed By: #### C BCDSAT #### [facility] [address] [place] [address] [place] [address] Nucleated RBC (Bld) [#/Vol] 0.1 10*3/uL Normal [facility] Comment on above: Performed By: #### C BCDSAT #### [facility] [address] [place] [address] [place] [address] Nucleated RBC (Bld) [#/Vol] 0.01 10*3/uL Normal [facility] Comment on above: Performed By: #### C BCDSAT #### [facility] [address] [place] [address] [place] [address] Platelet mean volume (Bld) [Entitic vol] 7.5 fL Normal 7.5-11.2 [facility] Comment on above: Performed By: #### C BCDSAT #### [facility] [address] [place] [address] [place] [address] Platelets (Bld) [#/Vol] 438 10*3/uL High 150-400 [facility] Comment on above: Performed By: #### C BCDSAT #### [facility] [address] [place] [address] [place] [address] RBC (Bld) [#/Vol] 4.44 10*6/uL Normal 4.00-5.20 [facility] Comment on above: Performed By: #### C BCDSAT #### [facility] [address] [place] [address] [place] [address] WBC (Bld) [#/Vol] 10.4 10*3/uL Normal 4.5-11.5 [facility] Comment on above: Performed By: #### C AMPARODSAT #### [facility] [address] [place] [address] [place] [address] Basophils (Bld) [#/Vol] 0.00 10*3/uL 0.00 - 0.20 K/uL [facility] Basophils/100 WBC (Bld) 0.5 % NINF - 1.9 % [facility] Eosinophils (Bld) [#/Vol] 0.00 10*3/uL 0.00 - 0.70 K/uL [facility] Eosinophils/100 WBC (Bld) 0.0 % Low 0.1 - 4.0 % [facility] Erythrocyte distribution width (RBC) [Ratio] 13.1 % 11.5 - 14.5 % [facility] Hematocrit (Bld) [Volume fraction] 41.1 % 36.0 - 46.0 % [facility] Hemoglobin (Bld) [Mass/Vol] 13.7 g/dL 12.0 - 15.0 g/dL [facility] Interpretation and review of laboratory results Abnormal [facility] Lymphocytes (Bld) [#/Vol] 1.10 10*3/uL 1.00 - 4.80 K/uL [facility] Lymphocytes/100 WBC (Bld) 10.9 % Low 24.0 - 44.0 % [facility] MCH (RBC) [Entitic mass] 30.8 pg 26.0 - 34.0 pg [facility] MCHC (RBC) [Mass/Vol] 33.3 g/dL 32.0 - 35.9 g/dL [facility] MCV (RBC) [Entitic vol] 93 fL 80 - 100 fL [facility] Monocytes (Bld) [#/Vol] 0.50 10*3/uL 0.20 - 1.00 K/uL [facility] Monocytes/100 WBC (Bld) 5.1 % 2.0 - 11.0 % [facility] Neutrophils (Bld) [#/Vol] 8.70 10*3/uL High 1.50 - 8.00 K/uL [facility] Neutrophils/100 WBC (Bld) 83.5 % High 31.0 - 76.0 % [facility] Nucleated RBC (Bld) [#/Vol] 0.01 10*3/uL [facility] Nucleated RBC/100 WBC (Bld) [Ratio] 0.1 % [facility] Platelet mean volume (Bld) [Entitic vol]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 lacerations ENT: Oropharynx clear, no lacerations, No dental malocclusion, No dental fractures, No rhinorrhea, No nasal septal hematoma, No hemotympanum or otorrhea, and Midface stable Cervical spine / Neck: Trachea midline, No masses, No bruits, and diffuse C-spine tenderness Lungs: Clear to auscultation, No flail segment, No asymmetric rise, No respiratory distress, and anterior chest wall tenderness Cardiac: Regular rate and rhythm, No murmurs, No rubs, No gallops, and Chest nontender Abdomen: Soft, Nondistended, No masses, and mild diffuse tenderness : No evidence of genital injury Back No abrasions to back and diffuse midline thoracic and lumbar tenderness without step-offs or deformities Neuro: Alert normally oriented Moves all 4 extremities symmetrically and equally to command Sensation intact Extremities: No deformity, erythema, ecchymosis or edema. Pain with passive range motion of the bilateral hips. No crepitus or shortening or malrotation Skin: No wounds Psych: Normal affect MEDICAL DECISION MAKING and ED COURSE Nursing triage and assessment notes reviewed and incorporated. Review of External (Non- ED) Notes: Discharge summaries reviewed and show patient was admitted to [facility] on August 25, 2022 for posterior thoracic spine wound infection. Hardware was replaced Management Decisions: Admission considered but no traumatic injuries requiring admission were found and patient's pain was improved with Dilaudid Shared decision making used to decide final disposition Secondary Considerations / Diagnoses Addressed During this Visit: Elevated blood pressure assessed and discussed hypertensive emergency and advised outpatient follow-up with PCP. Elevated blood sugar assessed and advised on blood sugar monitoring. Medication Ember (more content not included)... Normal [email or web address] [facility] GLUCOSE, FINGERSTICK-IN OFFI CEon 01-06-2023 Glucose [Mass/Vol] 176 mg/dL High 80-116 [email or web address] [facility] Comment on above: Performed By: #### [id number] #### NURSING GLUCOSE PROGRAM [address] [place], [place] [address], [address] Glucose [Mass/Vol] 176 mg/dL High 80 - 116 mg/dL [employer] Interpretation and review of laboratory results Abnormal [facility] HEPAT[facility] FUNCTION PANELon Albumin [Mass/Vol] 4.5 g/dL Normal 3.4-5.1 [facility] Comment on above: Performed By: #### T S #### [facility] [address] [place] [address], ALK 80 IU/L Normal 40-200 [facility] Comment on above: Performed By: #### T S #### [facility] [address] [place] [address], ALT [Catalytic activity/Vol] 22 U/L Normal 7-40 [facility] Comment on above: Performed By: #### T S #### [facility] [address] [place] [address], AST [Catalytic activity/Vol] 27 U/L Normal 7-40 [facility] Comment on above: Performed By: #### T S #### [facility] [address] [place] [address], Bilirubin [Mass/Vol] 0.3 mg/dL Normal 0.1-1.5 [facility] Comment on above: Performed By: #### T S #### [facility] [address] [place] [address], Bilirubin.direct [Mass/Vol] 0.00 mg/dL Low 0.10-0.30 [facility] Comment on above: Performed By: #### T S #### [facility] [address] [place] [address], Protein [Mass/Vol] 7.4 g/dL Normal 5.7-8.1 The [facility] Comment on above: Performed By: #### T S #### [facility] [address] [place] [address], HEPATIC FUNCTION PANELOrdere d By: Rochelle Villafana on 01-06-2023 Albumin [Mass/Vol] 4.5 g/dL 3.4 - 5.1 g/dL [facility] ALP [Catalytic activity/Vol] 80 U/L [facility] ALT [Catalytic activity/Vol] 22 U/L [facility] AST [Catalytic activity/Vol] 27 U/L [facility] Bilirubin [Mass/Vol] 0.3 mg/dL 0.1 - 1 .5 mg/dL [facility] Bilirubin.direct [Mass/Vol] 0.00 mg/dL Low 0.10 - 0.30 mg/dL [facility] Interpretation and review of laboratory results Abnormal [facility] Protein [Mass/Vol] 7.4 g/dL 5.7 - 8.1 g/dL [facility] HIV1 HIV2 AGAB SCRNon 2022 HIV AG-AB SCREEN Non-Reactive Normal Non-Reactive The [facility] Comment on above: Order Comment: HIV I nformation: ???[place] Rev. code 3701.243(E):This information has been disclosed to you from confidential records protected from disclosure by state law. ???You shall make no further disclosure of this information without the specific, written, and informed release of the individual to whom it pertains, or as otherwise permitted by state law. ???A general authorization for the release of medical or other information is not sufficient for the purpose of the release of HIV test results or diagnoses. Result Comment: No l aboratory evidence for HIV Infection. Negative result does not rule out acute HIV infection. If acute HIV infection is suspected, recommend ordering an HIV-1 RNA quanitification test. Performed By: #### T S #### [facility] [address], [place], LIPASEon 01-06-2023 LIP 23 IU/L Normal <128 The [facility] Comment on above: Performed By: #### T S #### [facility] [address], [place], Interpretation and review of laboratory results Normal [facility] Lipase [Catalytic activity/Vol] 23 U/L NINF [facility] No Panel Informationon 01-06 Radiology Study observation (narrative) [facility] PARTIAL THROMBOPLASTIN TIMEo n 01-06-2023 aPTT Coag (Bld) [Time] 29 s Normal 25-37 Th e [facility] Comment on above: Performed By: #### A PTT, PT #### [facility] [address] [place] [address] aPTT Coag (Bld) [Time] 29 s [facility] Interpretation and review of laboratory results Normal [facility] PROTHROMBIN TIME AND INRon 1 03-08-2022 INR Coag (PPP) [Relative time] 1.05 {INR} Normal 0.90-1.10 [facility] Comment on above: Performed By: #### T S #### [facility] [address] [place] [address], PT Coag (PPP) [Time] 11.4 s Normal 9.4-12.5 [facility] Comment on above: Performed By: #### T S #### [facility] [address] [place] [address], INR Coag (PPP) [Relative time] 1.05 {INR} 0.90 - 1.10 [facility] Interpretation and review of laboratory results Normal [facility] PT Coag (PPP) [Time] 11.4 [facility] TYPE AND SCREENon 01-06-2023 ABO and Rh group Nom (Bld) Blood group A Rh(D) positive Normal [facility] Comment on above: Performed By: #### T S #### [facility] [address] [place] [address], ABO and Rh group Nom (Bld) No Previous Results Normal [facility] Comment on above: Performed By: #### T S #### [facility] [address] [place] [address], ABSC INT Negative Normal [facility] Comment on above: Performed By: #### T S #### [facility] [address] [place] [address], XR HIP LEFT W/ PELVIS MIN 2- 3 VIEWSon 01-06-2023 XR HIP LEFT W/ PELVIS MIN 2-3 VIEWS EXAMINATION: XR HIP RIGHT W/ PELVIS MIN 2-3 VIEWSPRO/RT 01/06/2023 12:46 PM CLINICAL HISTORY: Trauma ASSOCIATED DIAGNOSIS: ORDERING PROVIDER: [employer] NOTE: Best images possible on cart and due to pain tolerance. Xray's were done after CT with contrast. COMPARISON: None FINDINGS: The pelvic ring is intact. No acute pelvic fracture or dislocation is identified. The right hip is intact. No acute hip fracture or dislocation is identified. Excreted contrast in urinary bladder. Posterior fusion hardware. IMPRESSION: No acute right hip or pelvic fracture. MACRO: None Normal The [facility] Laboratory - Drug toxicology Ordered By: Boubacar Cardoso on 09-11-2022 Amphetamines Ql (U) Negative <1000 ng/mL [facility] Benzodiazepines Ql (U) Negative < 200 ng/mL [facility] Cannabinoids Screen Ql (U) Negative < 50 ng/mL [facility] Cocaine Ql (U) Negative < 300 ng/mL [facility] Opiates Ql (U) Negative < 300 ng/mL [facility] No Panel InformationOrdered By: Boubacar Cardoso on 09-11-2022 MDMA (Ecstasy) Screen Negative < 500 ng/mL [facility] Urine Barbiturates Screen Negative < 200 ng/mL [facility] Urine Drug Screen Comment [facility] Comment on above: CONFIRMATORY TESTING FOR ALL POSITIVE URINE DRUG SCREENRESULTS WILL ONLY BE SENT OUT UPON PHYSICIAN ORDER. VISTA Urine Drug Screen methods provide only preliminaryanalytical test results. A more specific alternate chemicalmethod must be used in order to obtain a confirmedanalytical result. Gas chromatography/mass spectrometery(GC/MS) is the preferred confirmatory method. Clinicalconsideration and professional judgement should be appliedto any drug of abuse test result, particularly whenpreliminary positive results are used. URINE TCA TESTING MUST BE ORDERED SEPARATELY. USE TESTMNEMONIC: [facility] Urine Methadone Screen Negative < 300 ng/mL [facility] Urine phencyclidine (PCP) de tectionOrdered By: Boubacar Cardoso on 09-11-2022 Phencyclidine Ql (U) Negative < 25 ng/mL [facility] Basophil percentageOrdered B y: Jerrica Marshall on 06-26-2022 Chloride [Moles/Vol] 106 mmol/L 98-107 [facility] Glucose [Mass/Vol] 104 mg/dL 74-106 [facility] Comment on above: Fasting Glucose resu lt from 100 to 125 mg/dL suggests IMPAIRED HOMEOSTASIS per A.D.A. criteria. Potassium [Moles/Vol] 4.3 mmol/L 3.5-5.1 [facility] Sodium [Moles/Vol] 137 mmol/L 136-145 [facility] Laboratory - Chemistry and C hemistry - challengeOrdered By: Jerrica Marshall on 06-26-2022 CO2 [Moles/Vol] 25.0 mmol/L 21.0-32.0 [facility] Urea nitrogen/Creatinine [Mass ratio] 25.9 mg/mg 10- [facility] No Panel InformationOrdered By: Jerrica Marshall on 06-26-2022 Estimated GFR (MDRD) Amer 110 mL/min >60 [facility] Comment on above: GFR Calc Estimated GFR (MDRD) Non-Af Amer 91 mL/min >60 [facility] Comment on above: Non- GFR Calc Vitamin D 25-Hydroxy 55.3 ng/mL [facility] Comment on above: Vitamin D 25(OH) Sta tus Range Deficiency <20 ng/mL (50nmol/L) Insufficiency 20 - 30 ng/mL (50 - 75 nmol/L) Sufficiency 30 - 100 ng/mL (75 - 250 nmol/L) Toxicity >100 ng/mL (>250 nmol/L) Serum or plasma calcium yuliet urement (mass/volume)Ordered By: Jerrica Marshall on 06-26-2022 Calcium [Mass/Vol] 9.0 mg/dL 8.5-10.1 [facility] Serum or plasma creatinine m easurement (mass/volume)Ordered By: Jerrica Marshall on 06-26-2022 Creatinine [Mass/Vol] 0.70 mg/dL 0.55-1.02 [facility] Comment on above: The validity of the calculated GFR & GFRAA in patients over 70 years has not been determined. Clinical correlation is essential. Serum or plasma urea nitroge n measurement (mass/volume)Ordered By: Jerrica Marshall on 06-26-2022 Urea nitrogen [Mass/Vol] 18 mg/dL 08-26 [facility] Thin prep Papanicolaou smear with manual screeningOrdered By: Jerrica Marshall on 06-26-2022 Thin prep Papanicolaou smear with manual screening 6 5-15 [facility] Anaerobic cultureOrdered By: Wilber Delong on 05-12-2022 Bacteria identified Anaer cx Nom (Unsp spec) No growth in 5 days. [facility] Routine wound cultureOrdered By: Wilber Delong on 05-09-2022 Bacteria identified Cx Nom (Wound) No growth aerobically. [facility] Gram stain for investigation of transfusion reactionOrdered By: Wilber Sindi on 05-08-2022 Microscopic observation Gram stain Nom (Unsp spec) [facility] Absolute lymphocyte countOrd ered By: Wilber Sindi on 05-07-2022 Lymphocytes Auto (Unsp spec) [#/Vol] 2.29 10*3/uL 0.83-4.51 [facility] Basophil percentageOrdered B y: Wilber Delong on 05-07-2022 Basophils/100 WBC (Bld) 0.4 % 0-1 [facility] Bilirubin [Mass/Vol] 0.20 mg/dL 0.20-1.00 [facility] Comment on above: For patients on eltr ombopag therapy, use of Dimension [place] TBIL is not recommended. Chloride [Moles/Vol] 104 mmol/L 98-107 [facility] Eosinophils/100 WBC (Bld) 0.9 % 0-5 [facility] Glucose [Mass/Vol] 130 mg/dL 74-106 [facility] Comment on above: Fasting Glucose resu lt greater than or equal to 126 mg/dL suggests DIABETES MELLITUS per A.D.A. criteria. Neutrophils (Bld) [#/Vol] 4.5 10*3/uL 2.0-7.7 [facility] Neutrophils/100 WBC (Bld) 59.8 % 47-70 [facility] Potassium [Moles/Vol] 3.7 mmol/L 3.5-5.1 [facility] Protein [Mass/Vol] 8.1 g/dL 6.4-8.2 [facility] Sodium [Moles/Vol] 138 mmol/L 136-145 [facility] WBC (Bld) [#/Vol] 7.5 10*3/uL 4.4-11.0 [facility] Blood erythrocytes count (nu mber/volume)Ordered By: Wilber Delong on 05-07-2022 RBC (Bld) [#/Vol] 4.60 10*6/uL 4.2-5.4 [facility] Blood hemoglobin measurement (mass/volume)Ordered By: Wilber Delong on 05-07-2022 Hemoglobin (Bld) [Mass/Vol] 14.2 g/dL 12.0-15.0 [facility] Blood lymphocytes/100 leukoc ytesOrdered By: Wilber Delong on 05-07-2022 Lymphocytes/100 WBC (Bld) 30.7 % 19-41 [facility] Blood monocytes/100 leukocyt esOrdered By: Wilber Delong on 05-07-2022 Monocytes/100 WBC (Bld) 7.8 % 0-10 [facility] Blood platelet mean volumeOr dered By: Wilber Delong on 05-07-2022 Platelet mean volume (Bld) [Entitic vol] 9.4 fL 6.2-12.0 [facility] Determination of erythrocyte mean corpuscular volume (MCV)Ordered By: Wilber Delong on 05-07-2022 MCV (RBC) [Entitic vol] 93.5 fL 81-99 [facility] Erythrocyte sedimentation ra teOrdered By: Wilber Delong on 05-07-2022 ESR (Bld) [Velocity] 29 mm/h 0-30 [facility] Hematocrit Auto (Bld) [Volum e fraction]Ordered By: Wilber Delong on 05-07-2022 Hematocrit (Bld) [Volume fraction] 43.0 % 37-47 [facility] Laboratory - Chemistry and C hemistry - challengeOrdered By: Wilber Delong on 05-07-2022 ALP [Catalytic activity/Vol] 120 U/L 45-117 [facility] ALT [Catalytic activity/Vol] 24 U/L 13-56 [facility] CO2 [Moles/Vol] 27.0 mmol/L 21.0-32.0 [facility] Globulin (S) [Mass/Vol] 4.1 g/dL 2.2-4.2 [facility] Urea nitrogen/Creatinine [Mass ratio] 23.5 mg/mg 10-20 [facility] Laboratory - Hematology and Cell countsOrdered By: Wilber Delong on 05-07-2022 Erythrocyte distribution width (RBC) [Entitic vol] 44.4 fL 35.1-43.9 [facility] Erythrocyte distribution width (RBC) [Ratio] 13.0 % 11.6-14.6 [facility] Immature granulocytes/100 WBC (Bld) 0.400 % 0.0-0.9 [facility] Comment on above: IG% - Immature Granu locytes (promyelocytes, myelocytes and metamyelocytes) > 1% indicates that a LEFT SHIFT is Present. MCH (RBC) [Entitic mass] 30.9 pg 27.0-32.0 [facility] Nucleated RBC/100 WBC (Bld) [Ratio] 0 % 0-5 [facility] MCHC Auto (RBC) [Mass/Vol]Or dered By: Wilber Delong on 05-07-2022 MCHC (RBC) [Mass/Vol] 33.0 g/dL 32-36 [facility] No Panel InformationOrdered By: Wilber Delong on 05-07-2022 Estimated GFR (MDRD) Amer 92 mL/min >60 [facility] Comment on above: GFR Calc Estimated GFR (MDRD) Non-Af Amer 76 mL/min >60 [facility] Comment on above: Non- GFR Calc Platelets bldOrdered By: Rosario Delong on 05-07-2022 Platelets (Bld) [#/Vol] 442 10*3/uL 150-450 [facility] Serum or plasma C reactive p rotein measurement (mass/volume)Ordered By: Wilber Delong on 05-07-2022 CRP [Mass/Vol] 8.12 mg/L 0.0-3.0 [facility] Comment on above: C-Reactive Protein ( CRP) provides useful information for thediagnosis, therapy and monitoring of inflammatory processesand associated diseases. For the evaluation of Relative Riskfor Cardiovascular Disease, a High Sensitivity CRP (HSCRP)should be ordered. Serum or plasma albumin yuliet urement (mass/volume)Ordered By: Wilber Delong on 05-07-2022 Albumin [Mass/Vol] 4.0 g/dL 3.2-5.0 [facility] Serum or plasma albumin/glob ulin mass ratioOrdered By: Wilber Delong on 05-07-2022 Albumin/Globulin [Mass ratio] 1.0 {ratio} 0.9-2.4 [facility] Serum or plasma calcium yuliet urement (mass/volume)Ordered By: Wilber Delong on 05-07-2022 Calcium [Mass/Vol] 9.6 mg/dL 8.5-10.1 [facility] Serum or plasma creatinine m easurement (mass/volume)Ordered By: Wilber Delong on 05-07-2022 Creatinine [Mass/Vol] 0.81 mg/dL 0.55-1.02 [facility] Comment on above: The validity of the calculated GFR & GFRAA in patients over 70 years has not been determined. Clinical correlation is essential. Serum or plasma transthyreti n measurement (mass/volume)Ordered By: Wilber Delong on 05-07-2022 Prealbumin [Mass/Vol] 19.7 mg/dL 20.0-40.0 [facility] Serum or plasma urea nitroge n measurement (mass/volume)Ordered By: Wilber Delong on 05-07-2022 Urea nitrogen [Mass/Vol] 19 mg/dL 7-18 [facility] Thin prep Papanicolaou smear with manual screeningOrdered By: Wilber Delong on 05-07-2022 Thin prep Papanicolaou smear with manual screening 20 U/L 15-37 [facility] Thin prep Papanicolaou smear with manual screening 7 5-15 [facility] Absolute lymphocyte countOrd ered By: Dr. Tidwell on 04-28-2022 Lymphocytes Auto (Unsp spec) [#/Vol] 1.42 10*3/uL 0.83-4.51 [facility] Basophil percentageOrdered B y: Dr. Tidwell on 04-28-2022 Basophils/100 WBC (Bld) 0.5 % 0-1 [facility] Chloride [Moles/Vol] 106 mmol/L 98-107 [facility] Eosinophils/100 WBC (Bld) 0.2 % 0-5 [facility] Glucose [Mass/Vol] 98 mg/dL 74-106 [facility] Neutrophils (Bld) [#/Vol] 6.2 10*3/uL 2.0-7.7 [facility] Neutrophils/100 WBC (Bld) 73.4 % 47-70 [facility] Potassium [Moles/Vol] 4.3 mmol/L 3.5-5.1 [facility] Sodium [Moles/Vol] 138 mmol/L 136-145 [facility] WBC (Bld) [#/Vol] 8.4 10*3/uL 4.4-11.0 [facility] Blood erythrocytes count (nu mber/volume)Ordered By: Dr. Tidwell on 04-28-2022 RBC (Bld) [#/Vol] 4.26 10*6/uL 4.2-5.4 [facility] Blood hemoglobin measurement (mass/volume)Ordered By: Dr. Tidwell on 04-28-2022 Hemoglobin (Bld) [Mass/Vol] 13.4 g/dL 12.0-15.0 [facility] Blood lymphocytes/100 leukoc ytesOrdered By: Dr. Tidwell on 04-28-2022 Lymphocytes/100 WBC (Bld) 16.9 % 19-41 [facility] Blood monocytes/100 leukocyt esOrdered By: Dr. Tidwell on 04-28-2022 Monocytes/100 WBC (Bld) 8.5 % 0-10 [facility] Blood platelet mean volumeOr dered By: Dr. Tidwell on 04-28-2022 Platelet mean volume (Bld) [Entitic vol] 8.9 fL 6.2-12.0 [facility] Determination of erythrocyte mean corpuscular volume (MCV)Ordered By: Dr. Tidwell on 04-28-2022 MCV (RBC) [Entitic vol] 93.9 fL 81-99 [facility] Hematocrit Auto (Bld) [Volum e fraction]Ordered By: Dr. Tidwell on 04-28-2022 Hematocrit (Bld) [Volume fraction] 40.0 % 37-47 [facility] Laboratory - Chemistry and C hemistry - challengeOrdered By: Dr. Tidwell on 04-28-2022 CO2 [Moles/Vol] 29.0 mmol/L 21.0-32.0 [facility] Urea nitrogen/Creatinine [Mass ratio] 22.2 mg/mg 10-20 [facility] Laboratory - Hematology and Cell countsOrdered By: Dr. Tidwell on 04-28-2022 Erythrocyte distribution width (RBC) [Entitic vol] 44.4 fL 35.1-43.9 [facility] Erythrocyte distribution width (RBC) [Ratio] 13.0 % 11.6-14.6 [facility] Immature granulocytes/100 WBC (Bld) 0.500 % 0.0-0.9 [facility] Comment on above: IG% - Immature Granu locytes (promyelocytes, myelocytes and metamyelocytes) > 1% indicates that a LEFT SHIFT is Present. MCH (RBC) [Entitic mass] 31.5 pg 27.0-32.0 [facility] Nucleated RBC/100 WBC (Bld) [Ratio] 0 % 0-5 [facility] MCHC Auto (RBC) [Mass/Vol]Or dered By: Dr. Tidwell on 04-28-2022 MCHC (RBC) [Mass/Vol] 33.5 g/dL 32-36 [facility] No Panel InformationOrdered By: Dr. Tidwell on 04-28-2022 Estimated Creatinine Clearance Calc 58.19 ml/min [facility] Estimated GFR (MDRD) Amer 105 mL/min >60 [facility] Comment on above: GFR Calc Estimated GFR (MDRD) Non-Af Amer 87 mL/min >60 [facility] Comment on above: Non- GFR Calc Platelets bldOrdered By: Dr. Tidwell on 04-28-2022 Platelets (Bld) [#/Vol] 407 10*3/uL 150-450 [facility] Serum or plasma calcium yuliet urement (mass/volume)Ordered By: Dr. Tidwell on 04-28-2022 Calcium [Mass/Vol] 9.4 mg/dL 8.5-10.1 [facility] Serum or plasma creatinine m easurement (mass/volume)Ordered By: Dr. Tidwell on 04-28-2022 Creatinine [Mass/Vol] 0.72 mg/dL 0.55-1.02 [facility] Comment on above: The validity of the calculated GFR & GFRAA in patients over 70 years has not been determined. Clinical correlation is essential. Serum or plasma urea nitroge n measurement (mass/volume)Ordered By: Dr. Tidwell on 04-28-2022 Urea nitrogen [Mass/Vol] 16 mg/dL 7-18 [facility] Thin prep Papanicolaou smear with manual screeningOrdered By: Dr. Tidwell on 04-28-2022 Thin prep Papanicolaou smear with manual screening 3 5-15 [facility] Laboratory - Microbiology an d Antimicrobial susceptibilityon 12-11-2021 SARS-CoV-2 (COVID-19) RNA PHILL+probe Ql (Unsp spec) Detected Not Detect [facility] Work Phone: [phone] Comment on above: Normal Reference Ran ge: Not DetectedMethod:(RT-PCR) real-time reverse transcriptase PCRLuminex BIANCA Instrument*The Food and Drug Administration (FDA) has issued an Emergency Use Authorization (EAU) for the BIANCA SARS-CoV-2 Assay for the rapid detection of the virus that causes COVID-19. This test has been validated, but the FDAs independent review of this validation is pending.*Negative results do not preclude infection and should not be used as the sole basis for treatment or patient management. Optimum specimen types and timing for peak viral levels during infections caused by SARS-CoV-2 have not been determined. Collection of multiple specimens from the same patient may be necessary to detect the virus. The possibility of a false negative result should be considered if the patient has clinical presentation or has had recent exposure. Basophil percentageon 2021 Chloride [Moles/Vol] 106 mmol/L 98-107 [facility] Work Phone: [phone] Glucose [Mass/Vol] 96 mg/dL 74-106 [facility] Work Phone: [phone] Potassium [Moles/Vol] 4.4 mmol/L 3.5-5.1 [facility] Work Phone: [phone] Sodium [Moles/Vol] 137 mmol/L 136-145 [facility] Work Phone: [phone] Laboratory - Chemistry and C hemistry - challengeon 09-23-2021 CO2 [Moles/Vol] 27.0 mmol/L 21.0-32.0 [facility] Work Phone: [phone] Urea nitrogen/Creatinine [Mass ratio] 19.0 mg/mg 10-20 [facility] Work Phone: [phone] Panel Informationon 09-23 Estimated GFR (MDRD) Amer 123 mL/min >60 [facility] Work Phone: [phone] Comment on above: GFR Calc Estimated GFR (MDRD) Non-Af Amer 102 mL/min >60 [facility] Work Phone: [phone] Comment on above: Non- GFR Calc Vitamin D 25-Hydroxy 33.8 ng/mL [facility] Work Phone: Comment on above: Vitamin D 25(OH) Sta tus Range Deficiency <20 ng/mL (50nmol/L) Insufficiency 20 - 30 ng/mL (50 - 75 nmol/L) Sufficiency 30 - 100 ng/mL (75 - 250 nmol/L) Toxicity >100 ng/mL (>250 nmol/L) Serum or plasma calcium yuliet urement (mass/volume)on 09-23-2021 Calcium [Mass/Vol] 9.2 mg/dL 8.5-10.1 [facility] Work Phone: Serum or plasma creatinine m easurement (mass/volume)on 09-23-2021 Creatinine [Mass/Vol] 0.63 mg/dL 0.55-1.02 [facility] Work Phone: Comment on above: The validity of the calculated GFR & GFRAA in patients over 70 years has not been determined. Clinical correlation is essential. Serum or plasma urea nitroge n measurement (mass/volume)on 09-23-2021 Urea nitrogen [Mass/Vol] 12 mg/dL 7-18 [facility] Work Phone: Thin prep Papanicolaou smear with manual screeningon 09-23-2021 Thin prep Papanicolaou smear with manual screening 4 5-15 [facility] Work Phone: Basophil percentageon 2021 Basophil percentage 25-50 SEEN /hpf 0-5 [facility] Work Phone: [phone] Bilirubin Test strip Ql (U)o n 06-06-2021 Bilirubin Ql (U) Negative Negative [facility] Work Phone: Culture, urineon 06-06-2021 Bacteria identified Cx Nom (U) Presumptive E. coli [facility] Work Phone: [phone] Ketones Test strip Ql (U)on 06-06-2021 Ketones Ql (U) Negative Negative [facility] Work Phone: Mucus LM Ql (Urine sed)on Mucus Ql (Urine sed) 0 SEEN /hpf [facility] Work Phone: Nitrite Test strip Ql (U)on 06-06-2021 Nitrite Ql (U) Negative Negative [facility] Work Phone: Protein Test strip Ql (U)on 06-06-2021 Protein Ql (U) Negative Negative [facility] Work Phone: [phone] Squamous epithelial cells de tection in urine sediment by light microscopyon 06-06-2021 Epithelial cells.squamous LM Ql (Urine sed) 0-5 SEEN /hpf 5-10 [facility] Work Phone: Urine blood detectionon 05-11 RBC Ql (U) 10 /ul Negative [facility] Work Phone: [phone] RBC Ql (U) 0-5 SEEN /hpf 0-5 [facility] Work Phone: Urine clarityon 06-06-2021 Clarity (U) Sl. Cloudy Clear [facility] Work Phone: Urine color determinationon 06-06-2021 Color (U) Yellow Yellow [facility] Work Phone: Urine glucose detectionon Glucose Ql (U) Normal mg/dl Normal [facility] Work Phone: Urine leukocyte esterase det ection by dipstickon 06-06-2021 Leukocyte esterase Test strip Ql (U) 500 /ul Negative [facility] Work Phone: Urine pHon 06-06-2021 pH (U) 6.0 [pH] 5.0 - 8.0 [facility] Work Phone: Urine sediment bacteria coun t by microscopy (number/high power field)on 06-06-2021 Bacteria LM.HPF (Urine sed) [#/Area] 1 /[HPF] None Seen [facility] Work Phone: Urine specific gravity measu rementon 06-06-2021 Specific gravity (U) [Rel density] 1.010 1.002-1.030 [facility] Work Phone: Urobilinogen Auto test strip Ql (U)on 06-06-2021 Urobilinogen Ql (U) Normal mg/dl Normal [facility] Work Phone: Absolute lymphocyte counton 04-18-2021 Lymphocytes Auto (Unsp spec) [#/Vol] 1.90 10*3/uL 0.83-4.51 [facility] Work Phone: Basophil percentageon 2021 Amylase [Catalytic activity/Vol] 53 U/L 25-115 [facility] Work Phone: Basophils/100 WBC (Bld) 0.6 % 0-1 [facility] Work Phone: Bilirubin [Mass/Vol] 0.20 mg/dL 0.20-1.00 [facility] Work Phone: Comment on above: For patients on eltr ombopag therapy, use of Dimension [place] TBIL is not recommended. Chloride [Moles/Vol] 101 mmol/L 98-107 [facility] Work Phone: Eosinophils/100 WBC (Bld) 0.6 % 0-5 [facility] Work Phone: Glucose [Mass/Vol] 113 mg/dL 74-106 [facility] Work Phone: Comment on above: Fasting Glucose resu lt from 100 to 125 mg/dL suggests IMPAIRED HOMEOSTASIS per A.D.A. criteria. Neutrophils (Bld) [#/Vol] 4.6 10*3/uL 2.0-7.7 [facility] Work Phone: Neutrophils/100 WBC (Bld) 63.6 % 47-70 [facility] Work Phone: Potassium [Moles/Vol] 4.2 mmol/L 3.5-5.1 [facility] Work Phone: Protein [Mass/Vol] 8.0 g/dL 6.4-8.2 [facility] Work Phone: Sodium [Moles/Vol] 134 mmol/L 136-145 [facility] Work Phone: WBC (Bld) [#/Vol] 7.2 10*3/uL 4.4-11.0 [facility]: Blood erythrocytes count (nu mber/volume)on 04-18-2021 RBC (Bld) [#/Vol] 4.32 10*6/uL 4.2-5.4 [facility] Work Phone: Blood hemoglobin measurement (mass/volume)on 04-18-2021 Hemoglobin (Bld) [Mass/Vol] 13.6 g/dL 12.0-15.0 [facility] Work Phone: Blood lymphocytes/100 leukoc yteson 04-18-2021 Lymphocytes/100 WBC (Bld) 26.6 % 19-41 [facility] Work Phone: Blood monocytes/100 leukocyt eson 04-18-2021 Monocytes/100 WBC (Bld) 8.3 % 0-10 [facility] Work Phone: Blood platelet mean volumeon 04-18-2021 Platelet mean volume (Bld) [Entitic vol] 8.7 fL 6.2-12.0 [facility] Work Phone: Determination of erythrocyte mean corpuscular volume (MCV)on 04-18-2021 MCV (RBC) [Entitic vol] 90.3 fL 81-99 [facility] Work Phone: Erythrocyte sedimentation ra david 04-18-2021 ESR (Bld) [Velocity] 18 mm/h 0-30 [facility] Work Phone: Hematocrit Auto (Bld) [Volum e fraction]on 04-18-2021 Hematocrit (Bld) [Volume fraction] 39.0 % 37-47 [facility] Work Phone: Laboratory - Chemistry and C hemistry - challengeon 04-18-2021 ALP [Catalytic activity/Vol] 111 U/L 45-117 [facility] Work Phone: ALT [Catalytic activity/Vol] 17 U/L 13-56 [facility] Work Phone: [phone] CO2 [Moles/Vol] 27.0 mmol/L 21.0-32.0 [facility] Work Phone: [phone] Globulin (S) [Mass/Vol] 3.8 g/dL 2.2-4.2 [facility] Work Phone: [phone] Lipase [Catalytic activity/Vol] 84 U/L 73-393 [facility] Work Phone: [phone] Urea nitrogen/Creatinine [Mass ratio] 22.9 mg/mg 10-20 [facility] Work Phone: [phone] Laboratory - Hematology and Cell countson 04-18-2021 Erythrocyte distribution width (RBC) [Entitic vol] 48.9 fL 35.1-43.9 [facility] Work Phone: [phone] Erythrocyte distribution width (RBC) [Ratio] 14.6 % 11.6-14.6 [facility] Work Phone: [phone] Immature granulocytes/100 WBC (Bld) 0.300 % 0.0-0.9 [facility] Work Phone: [phone] Comment on above: IG% - Immature Granu locytes (promyelocytes, myelocytes and metamyelocytes) > 1% indicates that a LEFT SHIFT is Present. MCH (RBC) [Entitic mass] 31.5 pg 27.0-32.0 [facility] Work Phone: [phone] Nucleated RBC/100 WBC (Bld) [Ratio] 0 % 0-5 [facility] Work Phone: [phone] MCHC Auto (RBC) [Mass/Vol]on 04-18-2021 MCHC (RBC) [Mass/Vol] 34.9 g/dL 32-36 [facility] Work Phone: [phone] No Panel Informationon 04-18 Estimated GFR (MDRD) Amer 109 mL/min >60 [facility] Work Phone: [phone] Comment on above: GFR Calc Estimated GFR (MDRD) Non-Af Amer 90 mL/min >60 [facility] Work Phone: [phone] Comment on above: Non- GFR Calc Platelets bldon 04-18-2021 Platelets (Bld) [#/Vol] 461 10*3/uL 150-450 [facility] Work Phone: Serum or plasma C reactive p rotein measurement (mass/volume)on 04-18-2021 CRP [Mass/Vol] mg/L 0.0-3.0 [facility] Work Phone: Comment on above: C-Reactive Protein ( CRP) provides useful information for thediagnosis, therapy and monitoring of inflammatory processesand associated diseases. For the evaluation of Relative Riskfor Cardiovascular Disease, a High Sensitivity CRP (HSCRP)should be ordered. Serum or plasma albumin yuliet urement (mass/volume)on 04-18-2021 Albumin [Mass/Vol] 4.2 g/dL 3.2-5.0 [facility] Work Phone: Serum or plasma albumin/glob ulin mass ratioon 04-18-2021 Albumin/Globulin [Mass ratio] 1.1 {ratio} 0.9-2.4 [facility] Work Phone: Serum or plasma calcium yuliet urement (mass/volume)on 04-18-2021 Calcium [Mass/Vol] 9.2 mg/dL 8.5-10.1 [facility] Work Phone: Serum or plasma creatinine m easurement (mass/volume)on 04-18-2021 Creatinine [Mass/Vol] 0.70 mg/dL 0.55-1.02 [facility] Work Phone: Comment on above: The validity of the calculated GFR & GFRAA in patients over 70 years has not been determined. Clinical correlation is essential. Serum or plasma urea nitroge n measurement (mass/volume)on 04-18-2021 Urea nitrogen [Mass/Vol] 16 mg/dL 7-18 [facility] Work Phone: Thin prep Papanicolaou smear with manual screeningon 04-18-2021 Thin prep Papanicolaou smear with manual screening 13 U/L 15-37 [facility] Work Phone: Thin prep Papanicolaou smear with manual screening 6 5-15 [facility] Work Phone: XR Scoliosis Studyon 022 XR Scoliosis Study Examination: XR Scoliosis Study Clinical Indication: [id number]: Scoliosis deformity of spine Comparison: CT 10/04/2020 Findings: AP and lateral views of the spine obtained weightbearing with grid in place. Transpedicular pedicle screws and posterior fusion rods extending from T1 to S1. There is no significant remaining scoliotic curvature on the AP images. There is upper thoracic kyphosis measuring 55 degrees with positive sagittal balance. This previously measured 70 degrees. This is significantly improved from comparison with extension of the fusion more superiorly and less focal kyphosis present. There is multilevel loss of disc height with small endplate osteophytes. There is mild vertebral height loss midthoracic vertebral bodies T8, T9 and T10. No gross congenital abnormality is noted. Lower lumbar spine demonstrates prior discectomy and disc space grafting anteriorly L4-L5 and L5-S1. There is no significant pelvic tilt. Impression: 1. Thoracolumbar hardware fusion and lower lumbar postsurgical changes. No significant persistent scoliosis. There is upper thoracic kyphosis measuring up to 55 degrees. Positive sagittal balance. This represents improvement in alignment from comparison CT after surgical extension of fusion rods along the upper thoracic spine with less focal kyphosis. 2. At least mild thoracic spondylosis. Mild osteoporotic mid thoracic compression deformities. Report Dictated on Authenticated by: Esteban Butterfield On: 04/15/2021 12:02 Read by: ESTEBAN BUTTERFIELD MD, Date: 04/15/2021 12:02 [facility] Absolute lymphocyte counton 03-05-2021 Lymphocytes Auto (Unsp spec) [#/Vol] 1.83 10*3/uL 0.83-4.51 [facility] Work Phone: Basophil percentageon 2021 Basophils/100 WBC (Bld) 0.4 % 0-1 [facility] Work Phone: Eosinophils/100 WBC (Bld) 0.4 % 0-5 [facility] Work Phone: Neutrophils (Bld) [#/Vol] 5.0 10*3/uL 2.0-7.7 [facility] Work Phone: Neutrophils/100 WBC (Bld) 66.8 % 47-70 [facility] Work Phone: [phone] WBC (Bld) [#/Vol] 7.5 10*3/uL 4.4-11.0 [facility] Work Phone: Blood erythrocytes count (nu mber/volume)on 03-05-2021 RBC (Bld) [#/Vol] 4.33 10*6/uL 4.2-5.4 [facility]: Blood hemoglobin measurement (mass/volume)on 03-05-2021 Hemoglobin (Bld) [Mass/Vol] 12.8 g/dL 12.0-15.0 [facility] Work Phone: Blood lymphocytes/100 leukoc yteson 03-05-2021 Lymphocytes/100 WBC (Bld) 24.5 % 19-41 [facility] Work Phone: Blood monocytes/100 leukocyt eson 03-05-2021 Monocytes/100 WBC (Bld) 7.5 % 0-10 [facility] Work Phone: Blood platelet mean volumeon 03-05-2021 Platelet mean volume (Bld) [Entitic vol] 9.6 fL 6.2-12.0 [facility] Work Phone: [phone] Determination of erythrocyte mean corpuscular volume (MCV)on 03-05-2021 MCV (RBC) [Entitic vol] 87.3 fL 81-99 [facility] Work Phone: Erythrocyte sedimentation ra david 03-05-2021 ESR (Bld) [Velocity] 13 mm/h 0-30 [facility] Work Phone: Hematocrit Auto (Bld) [Volum e fraction]on 03-05-2021 Hematocrit (Bld) [Volume fraction] 37.8 % 37-47 [facility] Work Phone: [phone] Laboratory - Hematology and Cell countson 03-05-2021 Erythrocyte distribution width (RBC) [Entitic vol] 45.9 fL 35.1-43.9 [facility] Work Phone: [phone] Erythrocyte distribution width (RBC) [Ratio] 14.2 % 11.6-14.6 [facility] Work Phone: [phone] Immature granulocytes/100 WBC (Bld) 0.400 % 0.0-0.9 [facility] Work Phone: [phone] Comment on above: IG% - Immature Granu locytes (promyelocytes, myelocytes and metamyelocytes) > 1% indicates that a LEFT SHIFT is Present. MCH (RBC) [Entitic mass] 29.6 pg 27.0-32.0 [facility] Work Phone: [phone] Nucleated RBC/100 WBC (Bld) [Ratio] 0 % 0-5 [facility] Work Phone: [phone] MCHC Auto (RBC) [Mass/Vol]on 03-05-2021 MCHC (RBC) [Mass/Vol] 33.9 g/dL 32-36 [facility] Work Phone: [phone] Platelets bldon 03-05-2021 Platelets (Bld) [#/Vol] 417 10*3/uL 150-450 [facility] Work Phone: [phone] Serum or plasma C reactive p rotein measurement (mass/volume)on 03-05-2021 CRP [Mass/Vol] mg/L 0.0-3.0 [facility] Work Phone: [phone] Comment on above: C-Reactive Protein ( CRP) provides useful information for thediagnosis, therapy and monitoring of inflammatory processesand associated diseases. For the evaluation of Relative Riskfor Cardiovascular Disease, a High Sensitivity CRP (HSCRP)should be ordered. Laboratory - Drug toxicology on 01-08-2021 Amphetamines Ql (U) Negative [facility] Work Phone: [phone] Benzodiazepines Ql (U) Negative [facility] Work Phone: [phone] Cannabinoids Screen Ql (U) Negative [facility] Work Phone: [phone] Cocaine Ql (U) Negative [facility] Work Phone: [phone] Opiates Ql (U) Positive [facility] Work Phone: No Panel Informationon 01-08 Miscellaneous Test See comment [facility] Work Phone: Comment on above: [phone] 6+OXYCODONE-B UND (ng/mL) DRUG RESULT SCREEN CUTOFF____ Amphetamines,Urine Negative ng/mL 1000 Amphetamine test includes Amphetamine and Methamphetamine.Barbiturates Negative ng/mL 200Benzodiazepines Negative ng/mL 200Cannabinoid Negative ng/mL 20Cocaine (Metab) Negative ng/mL 300Opiates Negative ng/mL 300 Opiates test includes Codeine, Morphine, Hydromorphone, Hydrocodone. Oxycodone/Oxymorphone,Urine Positive ng/mL 300 Test includes Oxydodone and Oxymorphone. Oxycodone Positive Oxycodone Conf, MS, UR >3000 ng/mL 300 Oxymorphone Postive Oxymorphone Conf, MS, UR 2315 ng/mL 300 TESTING PERFORMED AT [facility]. ORIGINAL REPORT ON FILE IN LAB CONTAINS ADDITIONAL TEST SITE INFORMATION. Urine Barbiturates Screen Negative [facility] Work Phone: [phone] Urine Drug Screen Comment [facility] Work Phone: Comment on above: CONFIRMATORY TESTING FOR ALL POSITIVE URINE DRUG SCREENRESULTS WILL ONLY BE SENT OUT UPON PHYSICIAN ORDER. VISTA Urine Drug Screen methods provide only preliminaryanalytical test results. A more specific alternate chemicalmethod must be used in order to obtain a confirmedanalytical result. Gas chromatography/mass spectrometery(GC/MS) is the preferred confirmatory method. Clinicalconsideration and professional judgement should be appliedto any drug of abuse test result, particularly whenpreliminary positive results are used. URINE TCA TESTING MUST BE ORDERED SEPARATELY. USE TESTMNEMONIC: [facility] Urine Methadone Screen Negative [facility] Work Phone: Urine Methamphetamine-MDMA Screen Positive [facility] Work Phone: Urine phencyclidine (PCP) de tectionon 01-08-2021 Phencyclidine Ql (U) Negative [facility] Work Phone: SCOLIOSIS SPINE STANDINGon 1 02-28-2020 SCOLIOSIS SPINE STANDING SCOLIOSIS SPINE STANDING Ordering Physician: Gaviota London MD 12/28/2020 9:24 AM STANDING SCOLIOSIS: Clinical Statement: Scoliosis due to degenerative disk disease of the spine Comparison: Three-view standing scoliosis 10/26/2020 FINDINGS: Biventricular screws and posterior spinal rods are seen at every level in the lumbar spine at most levels within the thoracic spine. There is a chronic compression fracture of T5. There may be compression fracture T10 the appearance is unchanged from the prior study. No hardware failure IMPRESSION: Extensive postsurgical changes throughout the thoracic and lumbar spine. No acute osseous abnormality, hardware failure, hardware is This report was electronically signed by Ernesto Sprague MD 12/28/2020 11:46 AM Reported By: ERNESTO SPRAGUE M.D. Signed By: ERNESTO SPRAGUE M.D. [facility] SCOLIOSIS SPINE STANDINGon 0 10-26-2020 SCOLIOSIS SPINE STANDING SCOLIOSIS SPINE STANDING Ordering Physician: Gaviota London MD 10/26/2020 7:58 AM SCOLIOSIS SPINE STANDING Clinical Statement: Degenerative disease Comparison: 02/24/2020 FINDINGS: Since the prior exam, the patient has undergone revision with by pedicular screws seen throughout the thoracolumbar spine as well as fixation at the lumbosacral junction. Hardware is intact. Alignment is improved. With decreased kyphosis of the thoracic spine and improved levocurvature at the thoracolumbar junction with curvature now measuring at most 6 degrees. There is minimal increased wedging at T5 on the lateral image with apparent increased sclerosis. Midline dorsal skin tyra are noted. A large amount of fecal material incidentally noted throughout the colon. Left PICC line partially visualized. IMPRESSION: Extensive posterior fusion involving the thoracic, lumbar and sacral spine with improved alignment. Levocurvature measures less than 10 degrees. On lateral imaging, there is mild increased anterior wedging at T5. This report was electronically signed by Kimberly Meyer MD 10/26/2020 11:01 AM Reported By: KIMBERLY MEYER M.D. Signed By: KIMBERLY MEYER M.D. [facility] [place] [employer] PCR Stool Pathogens (GI Panel)on 10-13-2020 Adenovirus F 40/41 Not detected Normal NOT DETECTED [facility] Comment on above: Order Comment: GI Pa ninfa for: Clostridium Difficile, Stool Culture , Ova/Parasite, Giardia/Crypto, Shiga Toxin Performed By: #### B IOGI #### [facility] [address] [place], [place] [id number] Antibiotic Normal [facility] Comment on above: Order Comment: GI Pa ninfa for: Clostridium Difficile, Stool Culture , Ova/Parasite, Giardia/Crypto, Shiga Toxin Performed By: #### B IOGI #### [facility] [address] [place], [place] [id number] Astrovirus Not detected Normal NOT DETECTED [facility] Comment on above: Order Comment: GI Pa ninfa for: Clostridium Difficile, Stool Culture , Ova/Parasite, Giardia/Crypto, Shiga Toxin Performed By: #### B IOGI #### [facility] [address] [place], [place] [id number] Bacteria identified Cx Nom (Unsp spec) < BACTERIA > Normal [facility] Comment on above: Order Comment: GI Pa ninfa for: Clostridium Difficile, Stool Culture , Ova/Parasite, Giardia/Crypto, Shiga Toxin Performed By: #### B IOGI #### [place] [id number] C. difficile tox A/B Not detected Normal NOT DETECTED [facility] Comment on above: Order Comment: GI Pa ninfa for: Clostridium Difficile, Stool Culture , Ova/Parasite, Giardia/Crypto, Shiga Toxin Performed By: #### B IOGI #### [address] [place] [address] Campylobacter Not detected Normal NOT DETECTED [facility] Comment on above: Order Comment: GI Pa ninfa for: Clostridium Difficile, Stool Culture , Ova/Parasite, Giardia/Crypto, Shiga Toxin Performed By: #### B IOGI #### [facility] [address] [place] [address] Cryptosporidium Not detected Normal NOT DETECTED [facility] Comment on above: Order Comment: GI Pa ninfa for: Clostridium Difficile, Stool Culture , Ova/Parasite, Giardia/Crypto, Shiga Toxin Performed By: #### B IOGI #### [facility] [address] [place] [address] Cyclospora Not detected Normal NOT DETECTED [facility] Comment on above: Order Comment: GI Pa ninfa for: Clostridium Difficile, Stool Culture , Ova/Parasite, Giardia/Crypto, Shiga Toxin Performed By: #### B IOGI #### [facility] [address] [place] [address] Diar E. coli/Shig < DIARRHEAGENIC E. C PATTI / SHIGELLA > Normal [facility] Comment on above: Order Comment: GI Pa ninfa for: Clostridium Difficile, Stool Culture , Ova/Parasite, Giardia/Crypto, Shiga Toxin Performed By: #### B IOGI #### [facility] [address] [place] [address] E. coli (EAEC) Not detected Normal NOT DETECTED [facility] Comment on above: Order Comment: GI Pa ninfa for: Clostridium Difficile, Stool Culture , Ova/Parasite, Giardia/Crypto, Shiga Toxin Performed By: #### B IOGI #### [facility] [address] [place], [place] [id number] E. coli (EPEC) Not detected Normal NOT DETECTED [facility] Comment on above: Order Comment: GI Pa ninfa for: Clostridium Difficile, Stool Culture , Ova/Parasite, Giardia/Crypto, Shiga Toxin Performed By: #### B IOGI #### [facility] [address] [place] [address] E. coli (ETEC) Not detected Normal NOT DETECTED [facility] Comment on above: Order Comment: GI Pa ninfa for: Clostridium Difficile, Stool Culture , Ova/Parasite, Giardia/Crypto, Shiga Toxin Performed By: #### B IOGI #### [facility] [address] [place] [address] E. coli (STEC) Not detected Normal NOT DETECTED [facility] Comment on above: Order Comment: GI Pa ninfa for: Clostridium Difficile, Stool Culture , Ova/Parasite, Giardia/Crypto, Shiga Toxin Performed By: #### B IOGI #### [facility] [address] [place] [address] E. coli O157 N/A Normal NOT DETECTED [facility] Comment on above: Order Comment: GI Pa ninfa for: Clostridium Difficile, Stool Culture , Ova/Parasite, Giardia/Crypto, Shiga Toxin Performed By: #### B IOGI #### [facility] [address] [place] [address] E. histolytica Not detected Normal NOT DETECTED [facility] Comment on above: Order Comment: GI Pa ninfa for: Clostridium Difficile, Stool Culture , Ova/Parasite, Giardia/Crypto, Shiga Toxin Performed By: #### B IOGI #### [facility] [address] [place] [address] GI Pathogens Sum ----- GASTROINTESTIN AL PATHOGENS SUMMARY ----- [facility] Comment on above: Order Comment: GI Pa ninfa for: Clostridium Difficile, Stool Culture , Ova/Parasite, Giardia/Crypto, Shiga Toxin Performed By: #### B IOGI #### [facility] [address] [place] [address] Giardia lamblia Not detected Normal NOT DETECTED [facility] Comment on above: Order Comment: GI Pa ninfa for: Clostridium Difficile, Stool Culture , Ova/Parasite, Giardia/Crypto, Shiga Toxin Performed By: #### B IOGI #### [facility] [address] [place] [address] Indiv PCR Results ----- INDIVIDUAL PCR RESULTS ----- [facility] Comment on above: Order Comment: GI Pa ninfa for: Clostridium Difficile, Stool Culture , Ova/Parasite, Giardia/Crypto, Shiga Toxin Performed By: #### B IOGI #### [facility] [address] [place] [address] Norovirus GI/GII Not detected Normal NOT DETECTED [facility] Comment on above: Order Comment: GI Pa ninfa for: Clostridium Difficile, Stool Culture , Ova/Parasite, Giardia/Crypto, Shiga Toxin Performed By: #### B IOGI #### [facility] [address] [place] [address] P. shigelloides Not detected Normal NOT DETECTED [facility] Comment on above: Order Comment: GI Pa ninfa for: Clostridium Difficile, Stool Culture , Ova/Parasite, Giardia/Crypto, Shiga Toxin Performed By: #### B IOGI #### [facility] [address] [place] [address] Parasites < PARASITES > Normal [facility] Comment on above: Order Comment: GI Pa ninfa for: Clostridium Difficile, Stool Culture , Ova/Parasite, Giardia/Crypto, Shiga Toxin Performed By: #### B IOGI #### [facility] [address] [place] [address] Pathogens Detected Detected Normal NOT DETECTED [facility] Comment on above: Order Comment: GI Pa ninfa for: Clostridium Difficile, Stool Culture , Ova/Parasite, Giardia/Crypto, Shiga Toxin Performed By: #### B IOGI #### [facility] [address] [place] [address] Pathogens Detected Normal NOT DETECTED [facility] [facility] Comment on above: Order Comment: GI Pa ninfa for: Clostridium Difficile, Stool Culture , Ova/Parasite, Giardia/Crypto, Shiga Toxin Performed By: #### B IOGI #### [facility] [address] [place] [address] Rotavirus A Not detected Normal NOT DETECTED [facility] Comment on above: Order Comment: GI Pa ninfa for: Clostridium Difficile, Stool Culture , Ova/Parasite, Giardia/Crypto, Shiga Toxin Performed By: #### B IOGI #### [facility] [address] [place] [address] Salmonella Not detected Normal NOT DETECTED [facility] Comment on above: Order Comment: GI Pa ninfa for: Clostridium Difficile, Stool Culture , Ova/Parasite, Giardia/Crypto, Shiga Toxin Performed By: #### B IOGI #### [facility] [address] [place] [address] Sapovirus Not detected Normal NOT DETECTED [facility] Comment on above: Order Comment: GI Pa ninfa for: Clostridium Difficile, Stool Culture , Ova/Parasite, Giardia/Crypto, Shiga Toxin Performed By: #### B IOGI #### [facility] [address] [place] [address] Shig/E. coli (EIEC) Not detected Normal NOT DETECTED [facility] Comment on above: Order Comment: GI Pa ninfa for: Clostridium Difficile, Stool Culture , Ova/Parasite, Giardia/Crypto, Shiga Toxin Performed By: #### B IOGI #### [facility] [address] [place] [address] Vibrio Not detected Normal NOT DETECTED [facility] Comment on above: Order Comment: GI Pa ninfa for: Clostridium Difficile, Stool Culture , Ova/Parasite, Giardia/Crypto, Shiga Toxin Performed By: #### B IOGI #### [facility] [address] [place] [address] Vibrio cholerae Not detected Normal NOT DETECTED [facility] Comment on above: Order Comment: GI Pa ninfa for: Clostridium Difficile, Stool Culture , Ova/Parasite, Giardia/Crypto, Shiga Toxin Performed By: #### B IOGI #### [facility] [address] [place], [place] [id number] Viruses < VIRUSES > Normal [facility] Comment on above: Order Comment: GI Pa ninfa for: Clostridium Difficile, Stool Culture , Ova/Parasite, Giardia/Crypto, Shiga Toxin Performed By: #### B IOGI #### [facility] [address] [place], [place] [id number] Yersinia Not detected Normal NOT DETECTED [facility] Comment on above: Order Comment: GI Pa ninfa for: Clostridium Difficile, Stool Culture , Ova/Parasite, Giardia/Crypto, Shiga Toxin Performed By: #### B IOGI #### [facility] [address] [place] [address]327 Basic Metabolic Panelon 09-0 Anion gap [Moles/Vol] 10 mmol/L Normal 8-15 [facility] Comment on above: Performed By: #### C RPR #### [facility] [address] [place] [address] [phone] Calcium [Mass/Vol] 8.0 mg/dL Low 8.6-10.6 [facility] Comment on above: Performed By: #### C RPR #### [facility] [address] [place] [address] 81875 Chloride [Moles/Vol] 101 mmol/L Normal 98-107 [facility] Comment on above: Performed By: #### C RPR #### [facility] [address] [place] [address] 44656 CO2 [Moles/Vol] 25 mmol/L Normal 22-29 [facility] Comment on above: Performed By: #### C RPR #### [facility] [address] [place] [address] 42950 Creatinine [Mass/Vol] 0.7 mg/dL Normal 0.5-1.2 [facility] Comment on above: Performed By: #### C RPR #### [facility] [address] [place] [address] 14703 eGFR -Amer >60 Normal >=60 [facility] Comment on above: Performed By: #### C RPR #### [facility] [address] [place] [address] 90333 GFR/1.73 sq M.predicted among non-blacks MDRD (S/P/Bld) [Vol rate/Area] mL/min/{1.73_m2} Normal >=60 [facility] Comment on above: Performed By: #### C RPR #### [facility] [address] [place] [address] 97723 Glucose [Mass/Vol] 72 mg/dL Low 74-109 [facility] Comment on above: Performed By: #### C RPR #### [facility] [address] [place] [address] 15504 Potassium [Moles/Vol] 4.0 mmol/L Normal 3.4-5.1 [facility] Comment on above: Performed By: #### C RPR #### [facility] [address] [place] [address] 28374 Sodium [Moles/Vol] 136 mmol/L Normal 136-145 [facility] Comment on above: Performed By: #### C RPR #### [facility] [address] [place] [address] 65093 Urea nitrogen [Mass/Vol] 11 mg/dL Normal 6-23 [facility] Comment on above: Performed By: #### C RPR #### [facility] [address] [place] [address] 77375 CBC with Diffon 10-12-2020 BA# 0.1 x(10)3/cumm Normal 0.0-0.1 [facility] Comment on above: Order Comment: Done during computer downtime. Performed By: #### C RPR #### [facility] [address] [place] [address] 71896 Basophils/100 WBC (Bld) 0.9 % Normal 0.0-1.0 [facility] Comment on above: Order Comment: Done during computer downtime. Performed By: #### C RPR #### [facility] [address] [place] [address] 05163 EO# 0.1 x(10)3/cumm Normal 0.0-0.4 [facility] Comment on above: Order Comment: Done during computer downtime. Performed By: #### C RPR #### [facility] [address] [place] [address] 49338 Eosinophils/100 WBC (Bld) 0.5 % Normal 0.0-6.1 [facility] Comment on above: Order Comment: Done during computer downtime. Performed By: #### C RPR #### [address] [place] [address] Erythrocyte distribution width (RBC) [Ratio] 14.7 % Normal 11.1-15.3 [facility] Comment on above: Order Comment: Done during computer downtime. Performed By: #### C RPR #### [facility] [address] [place], [place] [id number] Hematocrit (Bld) [Volume fraction] 26.1 % Low 34.6-45.0 [facility] Comment on above: Order Comment: Done during computer downtime. Performed By: #### C RPR #### [place] [id number] Hemoglobin (Bld) [Mass/Vol] 8.8 g/dL Low 11.5-15.5 [facility] Comment on above: Order Comment: Done during computer downtime. Performed By: #### C RPR #### [place] [id number] LY# 3.4 x(10)3/cumm High 0.8-2.9 [facility] Comment on above: Order Comment: Done during computer downtime. Performed By: #### C RPR #### [place] [id number] Lymphocytes/100 WBC (Bld) 23.3 % Normal 12.2-42.6 [facility] Comment on above: Order Comment: Done during computer downtime. Performed By: #### C RPR #### [place] [id number] MCH (RBC) [Entitic mass] 30.1 pg Normal 27.2-33.6 [facility] Comment on above: Order Comment: Done during computer downtime. Performed By: #### C RPR #### [place] [id number] MCHC (RBC) [Mass/Vol] 33.7 g/dL Normal 32.9-35.3 [facility] Comment on above: Order Comment: Done during computer downtime. Performed By: #### C RPR #### [address], [place] [address] MCV (RBC) [Entitic vol] 89.4 fL Normal 81.3-96.7 [facility] Comment on above: Order Comment: Done during computer downtime. Performed By: #### C RPR #### [facility] [address] [place] [address] 38297 MO# 0.9 x(10)3/cumm High 0.2-0.8 [facility] Comment on above: Order Comment: Done during computer downtime. Performed By: #### C RPR #### [facility] [address] [place] [address] 92064 Monocytes/100 WBC (Bld) 6.5 % Normal 3.3-11.6 [facility] Comment on above: Order Comment: Done during computer downtime. Performed By: #### C RPR #### [facility] [address] [place] [address]444 NE# 9.9 x(10)3/cumm High 1.3-7.4 [facility] Comment on above: Order Comment: Done during computer downtime. Performed By: #### C RPR #### [facility] [address] [place] [address] 69973 Neutrophils/100 WBC (Bld) 68.8 % Normal 44.9-78.8 [facility] Comment on above: Order Comment: Done during computer downtime. Performed By: #### C RPR #### [facility] [address] [place] [address] 45504 Platelet mean volume (Bld) [Entitic vol] 7.6 fL Normal 6.4-10.0 [facility] Comment on above: Order Comment: Done during computer downtime. Performed By: #### C RPR #### [facility] [address] [place] [address] 05296 PLT 500 x(10)3/cumm High 138-367 [facility] Comment on above: Order Comment: Done during computer downtime. Performed By: #### C RPR #### [facility] [address] [place] [address] 78276 Plt Morph [facility] Comment on above: Order Comment: Done during computer downtime. Performed By: #### C RPR #### [facility] [address] [place] [address] 09252 RBC 2.92 X(10)6/cumm Low 3.90-5.10 [facility] Comment on above: Order Comment: Done during computer downtime. Performed By: #### C RPR #### [facility] [address] [place], [place] [id number] RBC Morph cont [facility] Comment on above: Order Comment: Done during computer downtime. Performed By: #### C RPR #### [facility] [address] [place], [place] [phone] RBC morphology finding Nom (Bld) [facility] Comment on above: Order Comment: Done during computer downtime. Performed By: #### C RPR #### [facility] [address] [place], [place] [phone] WBC 14.4 x(10)3/cumm High 3.6-10.3 [facility] Comment on above: Order Comment: Done during computer downtime. Performed By: #### C RPR #### [facility] [address] [place] [address] 63749 WBC Morph [facility] Comment on above: Order Comment: Done during computer downtime. Performed By: #### C RPR #### [facility] [address] [place], [place] [phone] XR Chest 1 view-Mobileon XR Chest 1 view-Mobile Portable chest 10/12/2020: Clinical Information: PICC line placement. Findings: A single AP portable view of the chest was obtained at 1412 hours. No prior studies for comparison. A left-sided PICC line is present with the tip in the region of the superior vena cava. The trachea is midline. The heart is not enlarged. There is increased density behind the heart on the left consistent with left lower lobe atelectasis, effusion or infiltrate. There is layering of a left pleural effusion as well. There is flattening of the right hemidiaphragm suggesting a subpulmonic effusion on the right. No pulmonary vascular congestion or consolidation is otherwise identified. Orthopedic hardware is present throughout the thoracic spine. Report Dictated on Authenticated by: Artis Godinez On: 10/12/2020 14:32 Read by: ARTIS GODINEZ MD Date: 10/12/2020 14:32 [facility] XR Scoliosis Studyon 021 XR Scoliosis Study SCOLIOSIS SERIES: CLINICAL INDICATION: Idiopathic scoliosis TECHNIQUE: PA and lateral views of the thoracic spine and lumbar spine with weight-bearing position including long cassette PA and lateral views COMPARISON: Scoliosis series on 08/20/2020 FINDINGS: Redemonstration of paired rods throughout the thoracic and lumbar spine with sacroiliac extenders bilaterally. The left pelvis is elevated compared to the right approximately 1.4 cm. Hardware appears grossly intact. Midline skin tyra are again noted. There is been extension of the thoracic rods and the upper thoracic spine since the prior study with some improvement in focal kyphosis within the upper thoracic spine since the prior study. There is atelectasis or infiltrate at the left lung base. Small left-sided pleural effusion. IMPRESSION: 1. Atelectasis or infiltrate at the left lung base. Small left pleural effusion. 2. Interval extension of upper thoracic spinal fusion hardware since the previous study with redemonstration of hardware within the lower thoracic and lumbar spine with sacroiliac extenders bilaterally. Redemonstration of pelvic tilt with the left pelvis 1.4 cm elevated compared to the right. Improvement in upper thoracic focal kyphosis since the previous study. Hardware appears grossly intact. Report Dictated on Authenticated by: Teagan Pabon On: 10/12/2020 18:10 Read by: TEAGAN PABON MD Date: 10/12/2020 18:10 [facility] Crossmatch 2 units PRBCon Ab Screen Negative Normal NEGATIVE [facility] Comment on above: Order Comment: MARCELO Bacon ninfa for: Clostridium Difficile, Stool Culture , Ova/Parasite, Giardia/Crypto, Shiga Toxin Performed By: #### B IOGI #### [facility] [address] [place] [address] Patient ABO A Normal [facility] Comment on above: Order Comment: MARCELO Bacon ninfa for: Clostridium Difficile, Stool Culture , Ova/Parasite, Giardia/Crypto, Shiga Toxin Performed By: #### B IOGI #### [facility] [address] [place] [address] Patient Rh Positive Abnormal [facility] Comment on above: Order Comment: GI Pa ninfa for: Clostridium Difficile, Stool Culture , Ova/Parasite, Giardia/Crypto, Shiga Toxin Performed By: #### B IOGI #### [facility] [address] [place] [address] date/time 10/09/2020 06:00 [facility] Comment on above: Order Comment: GI Pa ninfa for: Clostridium Difficile, Stool Culture , Ova/Parasite, Giardia/Crypto, Shiga Toxin Performed By: #### B IOGI #### [facility] [address] [place] [address] Unit # [id number] [facility] Comment on above: Order Comment: GI Pa ninfa for: Clostridium Difficile, Stool Culture , Ova/Parasite, Giardia/Crypto, Shiga Toxin Performed By: #### B IOGI #### [facility] [address] [place] [address] Unit #2 [id number] [facility] Comment on above: Order Comment: GI Pa ninfa for: Clostridium Difficile, Stool Culture , Ova/Parasite, Giardia/Crypto, Shiga Toxin Performed By: #### B IOGI #### [facility] [address] [place] [address] Unit #2 ABO/Rh Positive Invalid Interpretation [facility] Comment on above: Order Comment: GI Pa ninfa for: Clostridium Difficile, Stool Culture , Ova/Parasite, Giardia/Crypto, Shiga Toxin Performed By: #### B IOGI #### [facility] [address] [place] [address] Unit ABO/Rh Positive Invalid Interpretation [facility] Comment on above: Order Comment: GI Pa ninfa for: Clostridium Difficile, Stool Culture , Ova/Parasite, Giardia/Crypto, Shiga Toxin Performed By: #### B IOGI #### [place] [address] Unit Exp 11/09/2020 [facility] Comment on above: Order Comment: GI Pa ninfa for: Clostridium Difficile, Stool Culture , Ova/Parasite, Giardia/Crypto, Shiga Toxin Performed By: #### B IOGI #### [place] [address] XM 2 Compat Compatible [place] COMPATIBLE [facility] Comment on above: Order Comment: GI Pa ninfa for: Clostridium Difficile, Stool Culture , Ova/Parasite, Giardia/Crypto, Shiga Toxin Performed By: #### B IOGI #### [place] [address] XM Compat Compatible [facility] Comment on above: Order Comment: GI Pa ninfa for: Clostridium Difficile, Stool Culture , Ova/Parasite, Giardia/Crypto, Shiga Toxin Performed By: #### B IOGI #### [place] [address] Operative Reporton 1 Operative Report [place] [address] RECORD OF PROCEDURE PATIENT NAME: MARY VALIENTE DATE OF : 1960 MED REC #: [id number] PT LOCATION: 2W PT TYPE: IP AGE: 59 SEX: F ADMISSION DATE: 10/04/2020 DATE OF SERVICE: 10/09/2020 SURGEON: Gaviota London MD 1ST THIRD LOADER: Huyen Morgan CNP 2ND THIRD LOADER: Ulysses Morris DO ANESTHESIA: General endotracheal. ESTIMATED BLOOD LOSS: 300 mL FLUIDS: Patient received 3 L of crystalloid, 2 units of packed red blood cells. There was 400 mL of urine output. INSTRUMENT/NEEDLE/SPONGE COUNT: Correct COMPLICATIONS: There were no intraoperative complications. INDICATIONS FOR PROCEDURE: Patient is a 59-year-old female with extensive past medical history who underwent thoracolumbar deformity correction. Patient developed increased thoracic kyphosis and failure of instrumentation. Patient presented through the emergency room. Patient's studies revealed significant proximal junctional kyphosis with subluxation of T4-5 level. Patient decided to have this surgical intervention. Surgical benefits and risks were discussed in detail including bleeding, infection, CSF leak, paralysis, failure to improve, need for further surgeries, increased weakness, increased numbness, inability to move lower extremities, , stroke, myocardial infarction, DVT, PE, vascular injury, pneumonia. Patient was willing to proceed. Patient underwent full preoperative medical clearance. PREPROCEDURE DIAGNOSIS: Status post extensive thoracolumbar deformity correction, increased thoracic kyphosis, failure of instrumentation at T5, unacceptable quality of life. POSTPROCEDURE DIAGNOSIS: Status post extensive thoracolumbar deformity correction, increased thoracic kyphosis, failure of instrumentation at T5, unacceptable quality of life. NAME OF PROCEDURE: T2 to T5 instrumentation utilizing [employer] instrumentation; T6 to T9 revision with removal of previous pedicle screws and laminar hooks; T4, T5, T6 laminectomy; T4-5, T5-6 Rona osteotomies; correction of thoracic kyphosis; T2 to T9 posterolateral arthrodesis utilizing autologous and allogenous bone graft; utilization of intraoperative somatosensory and motor-evoked potential monitoring. DESCRIPTION OF PROCEDURE: After patient was identified in preoperative area, she was brought over to the operating room where she was intubated. Preoperative antibiotics were administered. Bilateral somatosensory and motor-evoked potential monitoring was established. Patient's head was placed in Mccann porter head. Patient was placed prone on Claudio table, and the pressure points were double-padded. Intraoperative C-arm was used to identify operative levels. The patient's cervicothoracic spine was prepped and draped in sterile fashion. Midline linear incision was made with No. 10 scalpel. Dissection was carried down through subcutaneous tissue to cervicothoracic fascia. Previous instrumentation at T5-6 was identified. Dissection was carried through spinous process and lamina of T2 to T5. Extensive scar tissue in between T5-6 down to T9 was encountered. This was dissected from instrumentation. Self-retaining retractors were applied. Level was confirmed with intraoperative C-arm. Copious irrigation was used. At that point revision part was performed with removal of set screws from T5 laminar hooks and T6, T7, T8 pedicle screws. Utilizing high-speed [employer] Shawn drill with titanium-cutting drill bit, previous titanium lucio in between T8-9 was cut bilaterally. On close inspection of the instrumentation, T5 hooks were on the fascia with no bony purchase. There was also facet arthrosis of right T6 pedicle screw. [place] and T6, T7, T8 pedicle screws were removed bilaterally. Copious irrigation was used. End-to-end connectors were placed on existing titanium rods right above the T9 level. At that point we proceeded with new instrumentation. Utilizing high-speed [employer] Shawn drill at left T2 level, pilot steam yacht hole was created. Left T2 pedicle was transgressed with pedicle finder. Integrity of pedicle was verified. A 4.5 x 40-mm pedicle screw by [employer] was inserted followed by same-sized pedicle screw on the right side. Patient's somatosensory and motor-evoked potentials remained stable. At left T3 level, again a high-speed [employer] Shawn drill was used for pilot steam yacht hole. Pedicle was transgressed with pedicle finder. Integrity of pedicle was verified. Another 4.5 x 40-mm pedicle screw was inserted followed by same-sized pedicle screw on right side. Patient's somatosensory and motor-evoked potentials remained stable. Same-size pedicle screws, 4.5 x 40 mm, were also inserted at T4 and T5 levels bilaterally. AP and lateral C-arm views demonstrated good placement of the instrumentation. Patient's somatosensory and motor-evoked potentials remained stable. At that point temporary stabilization (more content not included)... [facility] Culture Wound Aerobic w/ Gra m Charles 10-08-2020 Culture Wound Aerobic w/ Gram St Specimen Comments: Back Direct Exam: --------- Rare WBC's No organisms seen Culture Exam: --------- 1. Staphylococcus aureus Small numbers of Susceptibility Data: --- Isolate 1 - 1 Drug Interpretation Result Status Oxacillin S <=0.25 F Ciprofloxacin S <=0.5 F Levofloxacin S 0.25 F Moxifloxacin S <=0.25 F Inducible Clindamycin Resistance Neg Neg F Erythromycin S <=0.25 F Clindamycin S 0.25 F Linezolid S 2 F Daptomycin S 0.25 F Vancomycin S <=0.5 F Doxycycline S <=0.5 F Tetracycline S <=1 F Tigecycline S <=0.12 F Trimethoprim/Sulfamethox azole S <=10 F [facility] Comment on above: Order Comment: MILLIE p erformed at additional charge when indicated. Back abscess Performed By: #### C XWND ####[facility] [place] [id number] XR Abdomen single AP view-KU Bon 10-06-2020 XR Abdomen single AP view-KUB ABDOMEN: CLINICAL INDICATION: Follow-up abdominal pain. TECHNIQUE: Supine AP view of abdomen and pelvis. COMPARISON: Yesterday. FINDINGS: Bilateral pulmonary hyperinflation. The bowel gas pattern is unremarkable. No renal or ureteral calculi. No organomegaly is evident. Right-sided abdominal surgical clips. The osseous structures are demineralized. Thoracolumbar pedicle screws and intervening rods extend from the midthoracic spine to the sacrum. No loosening or hardware failure is seen. IMPRESSION: Nonobstructive bowel gas pattern. Hyperinflated lungs may suggest element of emphysema. Osteopenia. Thoracolumbar rods are intact. Report Dictated on Authenticated by: Jayda Gaytan On: 10/06/2020 14:13 Read by: JAYDA GAYTAN MD Date: 10/06/2020 14:13 Normal [facility] C-Reactive Proteinon 021 CRP [Mass/Vol] 238.1 mg/L High <=9.9 [facility] Comment on above: Performed By: #### C RPR #### [facility] [address] [place] [id number] XR Abdomen single AP view-KU Bon 10-05-2020 XR Abdomen single AP view-KUB Clinical indication: Bloating and constipation. COMPARISON: 10/04/2020. TECHNIQUE: Single AP radiograph of the abdomen and pelvis. FINDINGS: There is a nonobstructive bowel gas pattern. Extent of gas-filled small bowel loops has decreased compared to 10/04/2020. Gas is seen distally to the rectum. There are no pathologic calcifications. Extensive orthopedic hardware is seen involving the entire thoracolumbar spine. The osseous structures are otherwise normal. IMPRESSION: Nonobstructive bowel gas pattern. Improvement in gas-filled small bowel loops compared to 10/04/2020. Report Dictated on Authenticated by: He Henriquez On: 10/05/2020 10:52 Read by: KVNG HENRIQUEZ MD Date: 10/05/2020 10:52 Normal [facility] CT Thoracic Spine w contrast on 10-04-2020 CT Thoracic Spine w contrast CT THORACIC SPINE WITH CONTRAST: CLINICAL INDICATION: Status post scoliosis surgery on 07/31 and 08/02/2020 with pain and suspected abscess TECHNIQUE: Transaxial sequence through the thoracic spine following administration of 75 mL of contrast. Coronal and sagittal reconstructions included. Dose reduction was employed with automated exposure control. COMPARISON: Conventional radiographs from 08/20/2020 FINDINGS: Metallic posterior fixation extends from T5 through L1. There is anterior wedge deformity at the T5 level. Marginal osteophytes project anteriorly from the endplates. There is generalized disc space narrowing. There is no destructive bone lesion. There is no measurable scoliosis. As best delineated without intrathecal contrast and due to extensive streak artifact from metallic fixation, there is no identifiable collection within the thoracic canal. Visualized portions of the lungs demonstrate no abnormality. There is no pleural fluid. No mediastinal or hilar mass is identified. IMPRESSION: Fixation from T5 through L1 with anterior wedge deformity of T5 and generalized spurring and disc space narrowing. No identifiable collection within the thoracic canal on this limited examination. Report Dictated on Authenticated by: Marquise Barajas On: 10/04/2020 14:36 Read by: MARQUISE BARAJAS MD Date: 10/04/2020 14:36 [facility] Comment on above: Order Comment: CONTR AST PER RADIOLOGIST DISCRETION Abscess XR Abdomen Kub and Upright, or Decubon 10-04-2020 XR Abdomen Kub and Upright, or Decub ABDOMEN: CLINICAL INDICATION: Pain with recent scoliosis surgery. TECHNIQUE: Supine abdomen and pelvis along with oblique views COMPARISON: 08/20/2020 FINDINGS: Gas-filled, nondilated loops of small and large bowel are noted. Contrast is noted within the nondilated renal collecting systems. Surgical clips are noted in the right mid abdomen. There is extensive metallic fixation within the lower thoracic spine, lumbar spine and sacrum. IMPRESSION: Probable ileus. Report Dictated on Authenticated by: Marquise Barajas On: 10/04/2020 14:38 Read by: MARQUISE BARAJAS MD Date: 10/04/2020 14:38 [facility] Comment on above: Order Comment: Abdom inal pain XR Scoliosis Studyon 021 XR Scoliosis Study SCOLIOSIS SERIES: CLINICAL INDICATION: Scoliosis with prior surgery TECHNIQUE: PA and lateral views of the thoracic spine and lumbar spine with weight-bearing position including long cassette PA and lateral views COMPARISON: Two weeks ago FINDINGS: Metallic fixation is again noted extending from T5 through the sacrum. There is acute kyphosis at T4-T5. There is minor anterior wedge deformity of the T8 vertebral body. Osteopenia is noted. There is no measurable scoliosis. Hip joints are unremarkable. IMPRESSION: Metallic fixation again noted throughout the thoracic and lumbar spine extending to the sacrum with acute kyphosis at the level just above the upper extent of the thoracic fixation corresponding to T4-T5 Report Dictated on Authenticated by: Marquise Barajas On: 08/20/2020 15:25 Read by: MARQUISE BARAJAS MD Date: 08/20/2020 15:25 [facility] Donell 08-15-2020 EMERGENCY PHYSICIAN REPORT This is a preliminary report only, as the practitioner review and authentication has not occurred. 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 [employer] Patient: MARY VALIENTE Sex: F : 1960 Age: 59 yr Account No: [id number] Registration Date: 15:11 08/15/2020 Address: [address] [place] [address] Address: [place] [address] REGISTRATION ED Number: [id number] Marital Status: M Financial Class: [facility] TRIAGE Priority: 3 - Urgent Complaint: Back Pain, Non Traumatic Arrival Date: 08/15/2020 15:11 Triage Date: 08/15/2020 15:12 Mode of Arrival: *Privately Owned Vehicle WC: N Language: Turkmen Transport: Ambulatory/Walk In BED C33 In: 08/15/2020 19:58:23 08/15/2020 19:58:23 PJNoemy C33 (Removed From) Out: 08/15/2020 19:59:53 08/15/2020 19:59:53 PJJ [facility] PATIENT NAME: MARY VALIENTE [address] MEDICAL REC #: [id number] [place] [address] EMERGENCY DEPARTMENT REPORT EMERGENCY DEPARTMENT PHYSICIAN PROVIDERS TRIAGE HISTORY ALLERGIES Allergic To: Codeine - Rash 08/15/2020 15:36 KMF CURRENT MEDS Name: LYRICA 75MG CAPSULE - PO 08/15/2020 15:37 KMF Name: IBUPROFEN 800MG TABLET - PO 08/15/2020 15:37 KMF ILLNESS Illness: spinal stenosis 08/15/2020 15:36 KMF PAST SURGERY HIST Surgery: back surgery july 2020 disectomy and rods 08/15/2020 15:36 KMF Surgery: Cholecystectomy 08/15/2020 15:36 KMF Surgery: Carpal Tunnel 08/15/2020 15:36 KMF Surgery: Hysterectomy- 08/15/2020 15:36 KMF PAST SOCIAL HIST Social History: Lives with family or significant other 08/15/2020 15:36 KMF Social History: Alcohol - None 08/15/2020 15:36 KMF Social History: Smoker-None 08/15/2020 15:36 KMF Social History: Denies Domestic Violence 08/15/2020 15:36 KMF Social History: Denies thoughts of self harm. 08/15/2020 15:36 KMF [facility] PAT[facility] NAME: [facility] [address] [facility] MED[facility] REC #: [id number] [place] [address] EMERGENCY DEPARTMENT REPORT EMERGENCY DEPARTMENT PHYSICIAN Social History: Have you traveled in the past month? Where n 08/15/2020 15:36 KMF IMMUNIZATIONS Immunization: Flu Vaccine-yes 08/15/2020 15:36 KMF NURSING ASSESSMENT ASSESSMENT NOTES TREATMENT MEDICATIONS IV I AND O VITALS VS-ROUTINE Time: 08/15/2020 15:27 B/P: 110/60 - Left Upper Arm - Sitting - Manual Pulse: 90 - Monitor Resp: 32 Sa02: 99 Room Air Temp: 98.20 F - Oral 08/15/2020 15:33 KMF VS-Pain Time: 08/15/2020 15:27 Pain Level: 10 08/15/2020 15:33 KMF VS-GCS Time: 08/15/2020 15:27 Visual: 4 Verbal: 5 Motor: 6 GCS Total: 15 08/15/2020 15:33 KMF VS-HT/WT Time: 08/15/2020 15:27 Ht: 60 in. Weight: 98 lbs 08/15/2020 15:33 KMF VS-Visual Time: 08/15/2020 15:27 08/15/2020 15:33 KMF VS-FHT Time: 08/15/2020 15:27 08/15/2020 15:33 KMF VS-Notes Time: 08/15/2020 15:27 map 77 08/15/2020 [facility] PATIENT NAME: MARY VALIENTE [address] [place] MEDICAL REC #: [id number] [place] [address] EMERGENCY DEPARTMENT REPORT EMERGENCY DEPARTMENT PHYSICIAN 15:33 KMF ORDERS LBE 08/15/2020 20:15 N/A Ordered: 08/15/2020 20:15 By JAMAICA RAYMUNDO Reviewed: 08/15/2020 20:15 By JAMAICA RAYMUNDO UA ccms (cath if unable to void in 30 mins) 08/15/2020 19:55 N/A Ordered: 08/15/2020 19:55 By Protocol Question: Lab Urine Specimen Type Answer: Clean Catch DISCHARGE Diagnosis: LWT 0 08/15/2020 20:15 Disposition: Time: 08/15/2020 20:14 By: JAMAICA RAYMUNDO Discharge Time: 08/15/2020 20:14 Type: LBE Condition: LBE Concurred: 08/15/2020 20:15 By: SALLY Referral: 08/15/2020 20:15 SALLY PRESCRIPTIONS CHARGES SIGNATURE Priya Rowell RN KMF JAMAICA VELAJ RANDEE ZHANNA MEDIC TRKA [facility] PATIENT NAME: MARY VALIENTE [facility] [address] MEDICAL REC #: [id number] [facility] (more content not included)... Normal [facility] .Auto Diffon 08-14-2020 Basophil, Absolute 0.00 10 3/mcL Normal 0.00-0.27 [facility] ([place]) Comment on above: Performed By: #### C BC, BMP, GFR, MORPH, ADIFF, ANEU #### [address] [address] Basophils/100 WBC (Bld) 0.3 % Normal 0.0-2.5 Replaced By [facility] ([place]) Comment on above: Performed By: #### C BC, BMP, GFR, MORPH, ADIFF, ANEU #### [address] [address] Eosinophil, Absolute 0.10 10 3/mcL Normal 0.00-0.65 [facility] ([place]) Comment on above: Performed By: #### C BC, BMP, GFR, MORPH, ADIFF, ANEU #### [address] [address] Eosinophils/100 WBC (Bld) 0.8 % Normal 0.0-6.0 Replaced By [facility] ([place]) Comment on above: Performed By: #### C BC, BMP, GFR, MORPH, ADIFF, ANEU #### [address] [address] Lymphocyte, Absolute 1.20 10 3/mcL Normal 0.90-4.32 [facility] ([place]) Comment on above: Performed By: #### C BC, BMP, GFR, MORPH, ADIFF, ANEU #### [address] [address] Lymphocytes/100 WBC (Bld) 10.5 % Low 20.0-40.0 Replaced By [facility] ([place]) Comment on above: Performed By: #### C BC, BMP, GFR, MORPH, ADIFF, ANEU #### [address] [address] Monocyte, Absolute 1.00 10 3/mcL Normal 0.09-1.40 [facility] ([place]) Comment on above: Performed By: #### C BC, BMP, GFR, MORPH, ADIFF, ANEU #### [address] [address] Monocytes/100 WBC (Bld) 8.8 % Normal 2.0-13.0 Replaced By [facility] ([place]) Comment on above: Performed By: #### C BC, BMP, GFR, MORPH, ADIFF, ANEU #### [address] [address] Neutrophils/100 WBC (Bld) 79.6 % High 50.0-75.0 Replaced By [facility] ([place]) Comment on above: Performed By: #### C BC, BMP, GFR, MORPH, ADIFF, ANEU #### [address] [address] .GFRon 08-14-2020 GFR Non- >60 Normal Replaced By [facility] ([place]) Comment on above: Result Comment: GFR Population mean for , Non- Americans Ages 20-29 = 116 mL/min/1.73 sq.m. Ages 30-39 = 107 mL/min/1.73 sq.m. Ages 40-49 = 99 mL/min/1.73 sq.m. Ages 50-59 = 93 mL/min/1.73 sq.m. Ages 60-69 = 85 mL/min/1.73 sq.m. Ages 70+ = 75 mL/min/1.73 sq.m. Chronic Kidney Disease: Less than 60 mL/min/1.73 square meters End Stage Renal Disease: Less than 15 mL/min/1.73 square meters Performed By: #### C BC, BMP, GFR, MORPH, ADIFF, ANEU #### [address] [address] GFR >60 Normal [facility] ([place]) Comment on above: Result Comment: GFR Population mean for , Non- Americans Ages 20-29 = 116 mL/min/1.73 sq.m. Ages 30-39 = 107 mL/min/1.73 sq.m. Ages 40-49 = 99 mL/min/1.73 sq.m. Ages 50-59 = 93 mL/min/1.73 sq.m. Ages 60-69 = 85 mL/min/1.73 sq.m. Ages 70+ = 75 mL/min/1.73 sq.m. Chronic Kidney Disease: Less than 60 mL/min/1.73 square meters End Stage Renal Disease: Less than 15 mL/min/1.73 square meters Performed By: #### C BC, BMP, GFR, MORPH, ADIFF, ANEU #### [address] [address] .Morphon 08-14-2020 Platelet Estimate Increased Normal Replaced By [facility] ([place]) Comment on above: Performed By: #### C BC, BMP, GFR, MORPH, ADIFF, ANEU #### [address] [address] RBC morphology finding Nom (Bld) Normal Normal Replaced By [facility] ([place]) Comment on above: Performed By: #### C BC, BMP, GFR, MORPH, ADIFF, ANEU #### [address] [address] .NEUABSon 08-14-2020 Neutrophil, Absolute 9.50 10 3/mcL High 2.25-8.10 A [facility] ([place]) Comment on above: Performed By: #### C BC, BMP, GFR, MORPH, ADIFF, ANEU #### [place] [id number] BMPon 08-14-2020 Calcium [Mass/Vol] 8.4 mg/dL Low 8.7-10.4 [facility] ([place]) Comment on above: Result Comment: No te - New Reference Range in effect 19 Performed By: #### C BC, BMP, GFR, MORPH, ADIFF, ANEU #### [place] [address] Chloride [Moles/Vol] 100 mmol/L Normal 98-110 [facility] ([place]) Comment on above: Performed By: #### C BC, BMP, GFR, MORPH, ADIFF, ANEU #### [place] [address] CO2 [Moles/Vol] 24 mmol/L Normal 22-32 Replaced By [facility] ([place]) Comment on above: Performed By: #### C BC, BMP, GFR, MORPH, ADIFF, ANEU #### [place] [address] Creatinine [Mass/Vol] 0.43 mg/dL Low 0.50-1.20 [facility] ([place]) Comment on above: Performed By: #### C BC, BMP, GFR, MORPH, ADIFF, ANEU #### [place] [address] Electrolyte Balance 7.0 mEq/L Normal 4.0-15.0 [facility] ([place]) Comment on above: Performed By: #### C BC, BMP, GFR, MORPH, ADIFF, ANEU #### [place] [id number] Glucose [Mass/Vol] 112 mg/dL Normal 82-115 [facility] ([place]) Comment on above: Performed By: #### C BC, BMP, GFR, MORPH, ADIFF, ANEU #### [address] [address] Potassium [Moles/Vol] 4.0 mmol/L Normal 3.5-5.0 [facility] ([place]) Comment on above: Performed By: #### C BC, BMP, GFR, MORPH, ADIFF, ANEU #### [address] [address] Sodium [Moles/Vol] 131 mmol/L Low 136-145 [facility] ([place]) Comment on above: Performed By: #### C BC, BMP, GFR, MORPH, ADIFF, ANEU #### [place] [id number] Urea nitrogen [Mass/Vol] mg/dL Low 8.0-22.0 Replaced By [facility] ([place] Comment on above: Performed By: #### C BC, BMP, GFR, MORPH, ADIFF, ANEU #### [place] [id number] Urea nitrogen/Creatinine [Mass ratio] mg/mg Normal 10.0-22.0 Replaced By [facility] ([place]) Comment on above: Performed By: #### C BC, BMP, GFR, MORPH, ADIFF, ANEU #### [address] [address] CBCon 08-14-2020 Erythrocyte distribution width (RBC) [Ratio] 13.7 % Normal 11.5-15.5 Replaced By [facility] ([place] Comment on above: Performed By: #### C BC, BMP, GFR, MORPH, ADIFF, ANEU #### [address] [address] Hematocrit (Bld) [Volume fraction] 28.6 % Low 34.0-46.0 Replaced By [facility] ([place] Comment on above: Performed By: #### C BC, BMP, GFR, MORPH, ADIFF, ANEU #### [place] [id number] Hgb 9.7 G/dL Low 12.0-16.0 Replaced By [facility] ([place] Comment on above: Performed By: #### C BC, BMP, GFR, MORPH, ADIFF, ANEU #### [place] [address] MCH (RBC) [Entitic mass] 31.2 pg Normal 27.0-33.0 Replaced By [facility] ([place] Comment on above: Performed By: #### C BC, BMP, GFR, MORPH, ADIFF, ANEU #### [place] [address] MCHC 33.7 G/dL Normal 32.0-36.0 Replaced By [facility] ([place]) Comment on above: Performed By: #### C BC, BMP, GFR, MORPH, ADIFF, ANEU #### [place] [address] MCV (RBC) [Entitic vol] 92.4 fL Normal 80.0-99.0 Replaced By [facility] ([place] Comment on above: Performed By: #### C BC, BMP, GFR, MORPH, ADIFF, ANEU #### [place] [address] Platelet 891 10 3/mcL High 150-450 Replaced By [facility] ([place] Comment on above: Performed By: #### C BC, BMP, GFR, MORPH, ADIFF, ANEU #### [place] [address] Platelet mean volume (Bld) [Entitic vol] 6.9 fL Normal 6.6-10.5 Replaced By [facility] ([place] Comment on above: Performed By: #### C BC, BMP, GFR, MORPH, ADIFF, ANEU #### [place] [address] RBC 3.09 10 6/mcL Low 4.10-5.30 Replaced By [facility] ([place] Comment on above: Performed By: #### C BC, BMP, GFR, MORPH, ADIFF, ANEU #### [place] [address] WBC 11.90 10 3/mcL High 4.50-10.80 Replaced By [facility] ([place]) Comment on above: Performed By: #### C BC, BMP, GFR, MORPH, ADIFF, ANEU #### [address] [address] .Auto Diffon 08-13-2020 Basophil, Absolute 0.10 10 3/mcL Normal 0.00-0.27 [facility] ([place]) Comment on above: Performed By: #### C BC, BMP, GFR, MORPH, ADIFF, ANEU #### [address] [address] Basophils/100 WBC (Bld) 0.7 % Normal 0.0-2.5 Replaced By [facility] ([place] Comment on above: Performed By: #### C BC, BMP, GFR, MORPH, ADIFF, ANEU #### [address] [address] Eosinophil, Absolute 0.10 10 3/mcL Normal 0.00-0.65 A [facility] ([place]) Comment on above: Performed By: #### C BC, BMP, GFR, MORPH, ADIFF, ANEU #### [address] [address] Eosinophils/100 WBC (Bld) 1.2 % Normal 0.0-6.0 Replaced By [facility] ([place]) Comment on above: Performed By: #### C BC, BMP, GFR, MORPH, ADIFF, ANEU #### [address] [address] Lymphocyte, Absolute 1.60 10 3/mcL Normal 0.90-4.32 [facility] ([place]) Comment on above: Performed By: #### C BC, BMP, GFR, MORPH, ADIFF, ANEU #### [address] [address] Lymphocytes/100 WBC (Bld) 14.4 % Low 20.0-40.0 Replaced By [facility] ([place]) Comment on above: Performed By: #### C BC, BMP, GFR, MORPH, ADIFF, ANEU #### [address] [address] Monocyte, Absolute 1.00 10 3/mcL Normal 0.09-1.40 [facility] ([place]) Comment on above: Performed By: #### C BC, BMP, GFR, MORPH, ADIFF, ANEU #### [address] [address] Monocytes/100 WBC (Bld) 8.9 % Normal 2.0-13.0 Replaced By [facility] ([place]) Comment on above: Performed By: #### C BC, BMP, GFR, MORPH, ADIFF, ANEU #### [address] [address] Neutrophils/100 WBC (Bld) 74.8 % Normal 50.0-75.0 Replaced By [facility] ([place]) Comment on above: Performed By: #### C BC, BMP, GFR, MORPH, ADIFF, ANEU #### [address] [address] .GFRon 08-13-2020 GFR >60 Normal [facility] ([place]) Comment on above: Result Comment: GFR Population mean for , Non- Americans Ages 20-29 = 116 mL/min/1.73 sq.m. Ages 30-39 = 107 mL/min/1.73 sq.m. Ages 40-49 = 99 mL/min/1.73 sq.m. Ages 50-59 = 93 mL/min/1.73 sq.m. Ages 60-69 = 85 mL/min/1.73 sq.m. Ages 70+ = 75 mL/min/1.73 sq.m. Chronic Kidney Disease: Less than 60 mL/min/1.73 square meters End Stage Renal Disease: Less than 15 mL/min/1.73 square meters Performed By: #### C BC, BMP, GFR, MORPH, ADIFF, ANEU #### [address] [address] GFR Non- >60 Normal Replaced By [facility] ([place]) Comment on above: Result Comment: GFR Population mean for , Non- Americans Ages 20-29 = 116 mL/min/1.73 sq.m. Ages 30-39 = 107 mL/min/1.73 sq.m. Ages 40-49 = 99 mL/min/1.73 sq.m. Ages 50-59 = 93 mL/min/1.73 sq.m. Ages 60-69 = 85 mL/min/1.73 sq.m. Ages 70+ = 75 mL/min/1.73 sq.m. Chronic Kidney Disease: Less than 60 mL/min/1.73 square meters End Stage Renal Disease: Less than 15 mL/min/1.73 square meters Performed By: #### C BC, BMP, GFR, MORPH, ADIFF, ANEU #### [place] [address] .Morphon 08-13-2020 Platelet Estimate Grt Increased Normal [facility] ([place]) Comment on above: Performed By: #### C BC, BMP, GFR, MORPH, ADIFF, ANEU #### [place] [address] RBC morphology finding Nom (Bld) Normal Normal Replaced By [facility] ([place]) Comment on above: Performed By: #### C BC, BMP, GFR, MORPH, ADIFF, ANEU #### [place] [address] .NEUABSon 08-13-2020 Neutrophil, Absolute 8.40 10 3/mcL High 2.25-8.10 A [facility] ([place]) Comment on above: Performed By: #### C BC, BMP, GFR, MORPH, ADIFF, ANEU #### [address] 08-13-2020 BUN/Creatinine Ratio 8.8 ratio Low 10.0-22.0 [facility] ([place]) Comment on above: Performed By: #### C BC, BMP, GFR, MORPH, ADIFF, ANEU #### [place] [address] Calcium [Mass/Vol] 9.0 mg/dL Normal 8.4-10.1 [facility] ([place]) Comment on above: Result Comment: No te - New Reference Range in effect 19 Performed By: #### C BC, BMP, GFR, MORPH, ADIFF, ANEU #### [place] [address] Chloride [Moles/Vol] 98 mmol/L Normal 98-110 [facility] ([place]) Comment on above: Performed By: #### C BC, BMP, GFR, MORPH, ADIFF, ANEU #### [address] [address] CO2 [Moles/Vol] 26 mmol/L Normal 22-32 Replaced By [facility] ([place] Comment on above: Performed By: #### C BC, BMP, GFR, MORPH, ADIFF, ANEU #### [address] [address] Creatinine [Mass/Vol] 0.57 mg/dL Normal 0.50-1.20 [facility] ([place]) Comment on above: Performed By: #### C BC, BMP, GFR, MORPH, ADIFF, ANEU #### [address] [address] Electrolyte Balance 8.0 mEq/L Normal 4.0-15.0 [facility] ([place]) Comment on above: Performed By: #### C BC, BMP, GFR, MORPH, ADIFF, ANEU #### [address] [address] Glucose [Mass/Vol] 100 mg/dL Normal 82-115 [facility] ([place]) Comment on above: Performed By: #### C BC, BMP, GFR, MORPH, ADIFF, ANEU #### [address] [address] Potassium [Moles/Vol] 3.9 mmol/L Normal 3.5-5.0 [facility] ([place]) Comment on above: Result Comment: Spec imen slightly hemolyzed Performed By: #### C BC, BMP, GFR, MORPH, ADIFF, ANEU #### [address] [address] Sodium [Moles/Vol] 132 mmol/L Low 136-145 [facility] ([place]) Comment on above: Performed By: #### C BC, BMP, GFR, MORPH, ADIFF, ANEU #### [address] [address] Urea nitrogen [Mass/Vol] 5.0 mg/dL Low 8.0-22.0 Replaced By [facility] ([place]) Comment on above: Performed By: #### C BC, BMP, GFR, MORPH, ADIFF, ANEU #### [address] [address] CBCon 08-13-2020 Erythrocyte distribution width (RBC) [Ratio] 13.6 % Normal 11.5-15.5 Replaced By [facility] ([place] Comment on above: Performed By: #### C BC, BMP, GFR, MORPH, ADIFF, ANEU #### [place] [address] Hematocrit (Bld) [Volume fraction] 34.3 % Normal 34.0-46.0 Replaced By [facility] ([place] Comment on above: Performed By: #### C BC, BMP, GFR, MORPH, ADIFF, ANEU #### [place] [address] Hgb 11.5 G/dL Low 12.0-16.0 Replaced By [facility] ([place]) Comment on above: Performed By: #### C BC, BMP, GFR, MORPH, ADIFF, ANEU #### [place] [address] MCH (RBC) [Entitic mass] 30.9 pg Normal 27.0-33.0 Replaced By [facility] ([place] Comment on above: Performed By: #### C BC, BMP, GFR, MORPH, ADIFF, ANEU #### [place] [address] MCHC 33.6 G/dL Normal 32.0-36.0 Replaced By [facility] ([place] Comment on above: Performed By: #### C BC, BMP, GFR, MORPH, ADIFF, ANEU #### [place] [address] MCV (RBC) [Entitic vol] 92.0 fL Normal 80.0-99.0 Replaced By [facility] ([place] Comment on above: Performed By: #### C BC, BMP, GFR, MORPH, ADIFF, ANEU #### [place] [address] Platelet 972 10 3/mcL High 150-450 Replaced By [facility] ([place]) Comment on above: Performed By: #### C BC, BMP, GFR, MORPH, ADIFF, ANEU #### [place] [address] [place] [address] Platelet mean volume (Bld) [Entitic vol] 6.6 fL Normal 6.6-10.5 Replaced By [facility] ([place]) Comment on above: Performed By: #### C BC, BMP, GFR, MORPH, ADIFF, ANEU #### [place] [address] [place] [address] RBC 3.73 10 6/mcL Low 4.10-5.30 Replaced By [facility] ([place]) Comment on above: Performed By: #### C BC, BMP, GFR, MORPH, ADIFF, ANEU #### [place] [id number] [address] [place] [address] WBC 11.20 10 3/mcL High 4.50-10.80 Replaced By [facility] ([place] Comment on above: Performed By: #### C BC, BMP, GFR, MORPH, ADIFF, ANEU #### [address] [address] XR ABDOMEN SERIES W/CHEST 1 VIEWon 08-13-2020 XR ABDOMEN SERIES W/CHEST 1 VIEW ORIGINAL EXAMINATION: TWO XRAY VIEWS OF THE ABDOMEN AND SINGLE XRAY VIEW OF THE CHEST08/13/2020 5:17 am COMPARISON: Chest 07/25/2019, abdomen 05/04/2017 HISTORY: ORDERING SYSTEM PROVIDED HISTORY: abdominal pain FINDINGS: Supine and erect views of the abdomen show air-fluid levels within nondistended small bowel in the left side of the abdomen. Air is present within colon and rectum. No extraluminal gas is seen. No visceromegaly or mass-effect is seen. Cholecystectomy clips are present. Calcifications in the pelvis are most likely phleboliths. There is extensive spinal fixation hardware. Skin tyra project over the spine. Frontal view of the chest which accompanies the series shows normal heart size. Lungs appear clear except for mild blunting of the left costophrenic angle. IMPRESSION: Small bowel ileus favored over early/partial small bowel obstruction. Small left pleural effusion. Interpreted by: Zachariah Ding MD Preliminary Report By: Zachariah Ding MD Electronically signed By Zachariah Ding MD Dictated Date: 08/13/2020 5:27:43 AM Prelim Date: 08/13/2020 5:33:39 AM Sign Date: 08/13/2020 5:33:39 AM Ordering Provider: LIBRA ROUSSEAU Minoo Replaced By [facility] ([place]) CT Abdomen / Pelvis w IV onl yon 08-08-2020 CT Abdomen / Pelvis w IV only CT ABDOMEN AND PELVIS WITH IV CONTRAST. INDICATION: Postop, recent fall, back pain COMPARISON: None. CONTRAST: 75 cc of Isovue-370. CT scans of the abdomen and pelvis were performed following intravenous contrast administration, with images from the lung bases through the pubic symphysis. The images are reviewed in the axial, sagittal and coronal planes. Bilateral pleural effusions with bibasal atelectasis is present. The cardiac silhouette is satisfactory. The liver, spleen and pancreas are unremarkable. There has been a prior cholecystectomy. The stomach, duodenum and small bowel are generally unremarkable. There is no evidence of free air or free fluid within the abdomen. A large amount of feces is present within the colon. There is no mucosal thickening of the colon The adrenal glands and kidneys are satisfactory in appearance. A left extrarenal pelvis is present. Scans through the pelvis demonstrate the rectosigmoid to be unremarkable. The bladder is unremarkable. The remainder of the pelvic contents are unremarkable. There is no mass or adenopathy. A small amount of dependent free fluid is noted within the pelvis. The aorta, inferior vena cava and iliac vessels are satisfactory. The retroperitoneum is unremarkable. There is no mass or adenopathy. There has been a recent thoracolumbar sacral fusion with placement of posterior rods and multiple screws. No acute fractures are seen. There are at least two lucent lesions involving the left iliac crest. IMPRESSION: Postsurgical changes are noted involving the spine with evidence of recent fusion. No acute fractures are seen. Report Dictated on Authenticated by: Joshua Brown On: 08/08/2020 08:07 Read by: JOSHUA BROWN II, MD Date: 08/08/2020 08:07 [facility] XR Spine Cervical 2 or 3 vie wson 08-08-2020 XR Spine Cervical 2 or 3 views CERVICAL SPINE, TWO VIEWS: INDICATION: Neck pain COMPARISON: 08/07/2020 Findings: AP, odontoid and lateral views are submitted for interpretation. Alignment, curvature and segmentation of the cervical spine are within normal limits. There is mild irregularity of the inferior endplate of C5, likely chronic. The prevertebral soft tissues are intact. There is no evidence of acute fracture, dislocation or subluxation. Disc space height is well-preserved. The AP view is unremarkable. IMPRESSION: No acute osseous abnormality of the cervical spine. Report Dictated on Authenticated by: Joshua Brown On: 08/08/2020 07:47 Read by: JOSHUA BROWN II, MD Date: 08/08/2020 07:47 [facility] XR Spine Lumbar Sacral 2 -3 viewson 08-08-2020 XR Spine Lumbar Sacral 2 -3 views LUMBAR SPINE, AP AND LATERAL VIEWS: INDICATION: Back pain, recent spinal fusion COMPARISON: None Frontal, lateral and coned-down lumbosacral spot views of the lumbar spine were obtained. There has been a recent spinal fusion with placement of posterior rods with multiple pedicle screws as well as screws transfixing the SI joints. No subluxations or fractures are noted. IMPRESSION: Postoperative changes. No acute process is identified Report Dictated on Authenticated by: Joshua Brown On: 08/08/2020 07:51 Read by: JOSHUA BROWN II, MD Date: 08/08/2020 07:51 [facility] XR Spine Thoracic 3 viewson 08-08-2020 XR Spine Thoracic 3 views THORACIC SPINE: INDICATION: Back pain COMPARISON: No previous studies are available for comparison. AP, swimmers and lateral views of the thoracic spine demonstrate evidence of recent thoracolumbar fusion with placement of Patel rods and multiple pedicle screws. The intervertebral discs are well maintained. The bone mineral density is normal. The pedicles are intact. There is no paraspinal mass. IMPRESSION: Status post thoracolumbar fusion. No acute fractures are seen Report Dictated on Authenticated by: Joshua Brown On: 08/08/2020 07:45 Read by: JOSHUA BROWN II, MD Date: 08/08/2020 07:45 [facility] XR Scoliosis Studyon XR Scoliosis Study HISTORY: Scoliosis s tudy Frontal and lateral views spine are obtained showing recent extensive surgery with fusion with anterior screws lower lumbar spine and with pedicle screws and rods from the sacroiliac joints to T4 with skin tyra (with some adjacent subcutaneous air) and apparent drain. Scattered underlying degenerative changes throughout the spine Some atelectatic appearing changes are noted in the lung bases Report Dictated on Authenticated by: Mike Jeff On: 08/06/2020 18:35 Read by: MIKE JEFF MD Date: 08/06/2020 18:35 Normal [facility] Comment on above: Order Comment: Scoli osis films this morning Comprehensive Metabolic Pane bebe 08-05-2020 Albumin [Mass/Vol] 2.3 g/dL Low 3.5-5.2 [facility] Comment on above: Performed By: #### C RABIA PHOS #### [facility] [address] [place] [address] [id number] ALP [Catalytic activity/Vol] 132 U/L High 35-129 [facility] Comment on above: Performed By: #### C RABIA PHOS #### [facility] [address] [place] [address] 14456 ALT [Catalytic activity/Vol] 27 U/L Normal <=41 [facility] Comment on above: Performed By: #### C RABIA PHOS #### [facility] [address] [place] [address] 58523 Anion gap [Moles/Vol] 9 mmol/L Normal 8-15 [facility] Comment on above: Performed By: #### C RABIA PHOS #### [facility] [address] [place] [address] 16983 AST [Catalytic activity/Vol] 44 U/L High <=40 [facility] Comment on above: Performed By: #### C RABIA PHOS #### [facility] [address] [place] [address] 54076 Bili, Total 0.3 mg/dL Normal <=1.2 [facility] Comment on above: Performed By: #### C RABIA, PHOS #### [facility] [address] [place] [address] 17500 Calcium [Mass/Vol] 7.8 mg/dL Low 8.6-10.6 [facility] Comment on above: Performed By: #### C MP, PHOS #### [facility] [address] [place] [address] 67654 Chloride [Moles/Vol] 97 mmol/L Low 98-107 [facility] Comment on above: Performed By: #### C MP, PHOS #### [facility] [address] [place] [address] 55261 CO2 [Moles/Vol] 26 mmol/L Normal 22-29 [facility] Comment on above: Performed By: #### C MP, PHOS #### [facility] [address] [place] [address] 01494 Creatinine [Mass/Vol] 0.5 mg/dL Normal 0.5-1.2 [facility] Comment on above: Performed By: #### C RABIA, PHOS #### [facility] [address] [place] [address] 55739 eGFR -Amer >=60 Normal >=60 [facility] Comment on above: Performed By: #### C RABIA, PHOS #### [facility] [address] [place] [address] 82928 GFR/1.73 sq M.predicted among non-blacks MDRD (S/P/Bld) [Vol rate/Area] mL/min/{1.73_m2} Normal >=60 [facility] Comment on above: Performed By: #### C RABIA, PHOS #### [facility] [address] [place] [address] 96498 Glucose [Mass/Vol] 98 mg/dL Normal 74-109 [facility] Comment on above: Performed By: #### C MP, PHOS #### [facility] [address] [place] [address] 63051 Potassium [Moles/Vol] 3.6 mmol/L Normal 3.4-5.1 [facility] Comment on above: Performed By: #### C RABIA, PHOS #### [facility] [address] [place] [address] 04636 Prot Total 4.9 g/dL Low 6.4-8.3 [facility] Comment on above: Performed By: #### C WILIAN CAMARILLO #### [facility] [address] [place] [address] 75747 Sodium [Moles/Vol] 132 mmol/L Low 136-145 [facility] Comment on above: Performed By: #### C RABIA PHOS #### [facility] [address] [place] [address] 48519 Urea nitrogen [Mass/Vol] 8 mg/dL Normal 6- [facility] Comment on above: Performed By: #### C WILIAN CAMARILLO #### [facility] [address] [place] [address] 19889 Phosphorus - Inorganicon Phosphate [Mass/Vol] 2.5 mg/dL Normal 2.5-4.5 [facility] Comment on above: Performed By: #### C RABIA PHOS #### [facility] [address] [place] [address] 58108 Basic Metabolic Panelon 07-11 Anion gap [Moles/Vol] 5 mmol/L Low 8-15 [facility] Comment on above: Performed By: #### B MP #### [facility] [address] [place] [address] 65954 Calcium [Mass/Vol] 7.5 mg/dL Low 8.6-10.6 [facility] Comment on above: Performed By: #### B MP #### [facility] [address] [place] [address] 53642 Chloride [Moles/Vol] 101 mmol/L Normal 98-107 [facility] Comment on above: Performed By: #### B MP #### [facility] [address] [place] [address] 57828 CO2 [Moles/Vol] 26 mmol/L Normal 22-29 [facility] Comment on above: Performed By: #### B MP #### [facility] [address] [place] [address] 79051 Creatinine [Mass/Vol] 0.5 mg/dL Normal 0.5-1.2 [facility] Comment on above: Performed By: #### B MP #### [facility] [address] [place] [address] 44711 eGFR -Amer >=60 Normal >=60 [facility] Comment on above: Performed By: #### B MP #### [facility] [address] [place] [address] 18478 GFR/1.73 sq M.predicted among non-blacks MDRD (S/P/Bld) [Vol rate/Area] mL/min/{1.73_m2} Normal >=60 [facility] Comment on above: Performed By: #### B MP #### [facility] [address] [place] [address] 05741 Glucose [Mass/Vol] 108 mg/dL Normal 74-109 [facility] Comment on above: Performed By: #### B MP #### [facility] [address] [place] [address] 81940 Potassium [Moles/Vol] 4.4 mmol/L Normal 3.4-5.1 [facility] Comment on above: Performed By: #### B MP #### [facility] [address] [place] [address] 76417 Sodium [Moles/Vol] 132 mmol/L Low 136-145 [facility] Comment on above: Performed By: #### B MP #### [facility] [address] [place] [address] 84512 Urea nitrogen [Mass/Vol] 8 mg/dL Normal 6-23 [facility] Comment on above: Performed By: #### B MP #### [facility] [address] [place] [address] 07296 CBC with Diffon 08-03-2020 BA# 0.1 x(10)3/cumm Normal 0.0-0.1 [facility] Comment on above: Performed By: #### C RPR #### [facility] [address] [place] [address] 46431 Basophils/100 WBC (Bld) 0.4 % Normal 0.0-1.0 [facility] Comment on above: Performed By: #### C RPR #### [facility] [address] [place] [address] 82618 EO# 0.0 x(10)3/cumm Normal 0.0-0.4 [facility] Comment on above: Performed By: #### C RPR #### [facility] [address] [place] [address] 86095 Eosinophils/100 WBC (Bld) 0.1 % Normal 0.0-6.1 [facility] Comment on above: Performed By: #### C RPR #### [facility] [address] [place] [address] 68901 Erythrocyte distribution width (RBC) [Ratio] 12.3 % Normal 11.1-15.3 [facility] Comment on above: Performed By: #### C RPR #### [facility] [address] [place] [address] 92273 Hematocrit (Bld) [Volume fraction] 19.2 % Low 34.6-45.0 [facility] Comment on above: Performed By: #### C RPR #### [facility] [address] [place] [address] 77959 Hemoglobin (Bld) [Mass/Vol] 6.7 g/dL Low 11.5-15.5 [facility] Comment on above: Performed By: #### C RPR #### [facility] [address] [place] [address] 33261 LY# 1.7 x(10)3/cumm Normal 0.8-2.9 [facility] Comment on above: Performed By: #### C RPR #### [facility] [address] [place] [address] 81313 Lymphocytes/100 WBC (Bld) 13.0 % Normal 12.2-42.6 [facility] Comment on above: Performed By: #### C RPR #### [facility] [address] [place] [address] 98216 MCH (RBC) [Entitic mass] 33.0 pg Normal 27.2-33.6 [facility] Comment on above: Performed By: #### C RPR #### [facility] [address] [place] [address] 57603 MCHC (RBC) [Mass/Vol] 35.1 g/dL Normal 32.9-35.3 [facility] Comment on above: Performed By: #### C RPR #### [facility] [address] [place] [address] 10107 MCV (RBC) [Entitic vol] 94.0 fL Normal 81.3-96.7 [facility] Comment on above: Performed By: #### C RPR #### [facility] [address] [place] [address] 92290 MO# 1.1 x(10)3/cumm High 0.2-0.8 [facility] Comment on above: Performed By: #### C RPR #### [facility] [address] [place] [address] 98666 Monocytes/100 WBC (Bld) 8.4 % Normal 3.3-11.6 [facility] Comment on above: Performed By: #### C RPR #### [facility] [address] [place] [address] 81264 NE# 10.4 x(10)3/cumm High 1.3-7.4 [facility] Comment on above: Performed By: #### C RPR #### [facility] [address] [place] [address] 50907 Neutrophils/100 WBC (Bld) 78.1 % Normal 44.9-78.8 [facility] Comment on above: Performed By: #### C RPR #### [facility] [address] [place] [address] 19647 Platelet mean volume (Bld) [Entitic vol] 7.3 fL Normal 6.4-10.0 [facility] Comment on above: Performed By: #### C RPR #### [facility] [address] [place] [address] 67618 PLT 218 x(10)3/cumm Normal 138-367 [facility] Comment on above: Performed By: #### C RPR #### [facility] [address] [place] [address] 33196 Plt Morph [facility] Comment on above: Performed By: #### C RPR #### [facility] [address] [place], [place] [phone] RBC 2.04 X(10)6/cumm Low 3.90-5.10 [facility] Comment on above: Performed By: #### C RPR #### [facility] [address] [place], [place] [phone] RBC Morph cont [facility] Comment on above: Performed By: #### C RPR #### [facility] [address] [place], [place] [phone] RBC morphology finding Nom (Bld) [facility] Comment on above: Performed By: #### C RPR #### [place] [address] WBC 13.3 x(10)3/cumm High 3.6-10.3 [facility] Comment on above: Performed By: #### C RPR #### [facility] [address] [place] [address] WBC Morph Normal [facility] Comment on above: Performed By: #### C RPR #### [place] [address] CT Abdomen / Pelvis without contraston 08-03-2020 CT Abdomen / Pelvis without contrast CT ABDOMEN AND PELVIS WITHOUT CONTRAST CLINICAL INDICATION: Follow-up for surgery with anemia and pain TECHNIQUE: Transaxial sequence through the abdomen and pelvis without contrast with 3 mm reconstruction. Sagittal coronal reconstruction images included. Dose reduction was employed with automated exposure control. COMPARISON: None. FINDINGS: Exam quality: Limited for evaluation of solid organs due to the lack of intravenous contrast and limited for evaluation of the gastrointestinal tract due to lack of oral contrast. There is also extensive artifact from metallic fixation. Chest base: Small bilateral pleural fluid collections are noted with adjacent compressive atelectasis. Liver: Normal size and contour. No identifiable lesion. Biliary tree: Normal caliber. Spleen: Normal. Adrenals: Normal. Pancreas: Normal. Kidneys: No contour abnormality or focal renal lesion. Renal collecting systems: Extrarenal pelvis is noted on the left. There is no definite hydronephrosis or renal calculus. Free fluid: None. Free air: Few small gas bubbles are noted within the peritoneal cavity in the nondependent region Retroperitoneal/mesenter ic lymphadenopathy: None. Aorta: Normal caliber. Bowel: Fluid and gas-filled bowel loops are noted, likely corresponding to ileus pattern. Retained feces are noted within the right colon. Abdominal wall: There is some gas within the musculature within the anterior abdominal wall related to surgery with surrounding stranding. Pelvic organs/viscera: No mass identified. There is presacral fluid attenuation. Bladder: Lopez catheter is noted in the collapsed urinary bladder. Pelvic lymphadenopathy: None. Osseous structures: There is extensive metallic fixation within the lower thoracic spine, lumbar spine and sacrum in adequate alignment. There is also anterior metallic fixation at L5 and S1. IMPRESSION: Postoperative changes with metallic fixation, small amount of free intraperitoneal air, subcutaneous air within the abdominal wall and presacral fluid with ileus pattern. Report Dictated on Authenticated by: Marquise Barajas On: 08/03/2020 16:22 Read by: MARQUISE BARAJAS MD Date: 08/03/2020 16:22 [facility] LD Totalon 08-03-2020 LD 183 U/L [place] 135-225 [facility] Comment on above: Performed By: #### L D #### [facility] [address] [place] [address] Leukodepleted Red Cells Lilliam mejia 08-03-2020 Product Code [id number] [facility] Comment on above: Performed By: #### C RPR #### [facility] [address] [place] [address] Rel By [facility] Comment on above: Performed By: #### C RPR #### [facility] [address] [place] [address] Rel Date 08/03/20 [facility] Comment on above: Performed By: #### C RPR #### [facility] [address] [place] [address] Rel Time 0610 [facility] Comment on above: Performed By: #### C RPR #### [place] [id number] Rel To cat [facility] Comment on above: Performed By: #### C RPR #### [place] [address] [id number] [facility] Comment on above: Performed By: #### C RPR #### [place] [id number] Protime and PTTon 08-03-2020 aPTT Coag (Bld) [Time] 21.5 s Low 25.1-36.5 [facility] Comment on above: Order Comment: Tube must be filled. Performed By: #### C RPR #### [place] [id number] INR Coag (PPP) [Relative time] 1.5 {INR} High 0.8-1.1 [facility] Comment on above: Order Comment: Tube must be filled. Performed By: #### C RPR #### [place] [address] New Ref Range Please Note: New References Range for PT and PTT test. [facility] Comment on above: Order Comment: Tube must be filled. Performed By: #### C RPR #### [place] [address] PT Coag (PPP) [Time] 17.1 s High 9.4-12.5 [facility] Comment on above: Order Comment: Tube must be filled. Performed By: #### C RPR #### [place] [address] Ref Range INR Range 0.9-1.1 No rmal 2.0-3.0 Standard Dose 2.5-3.5 High Dose [facility] Comment on above: Order Comment: Tube must be filled. Performed By: #### C RPR #### [place] [address] Operative Reporton Operative Report [facility] [address] [place], [place] [address] RECORD OF PROCEDURE PATIENT NAME: MARY VALIENTE DATE OF : 1960 [facility] REC #: [id number] PT LOCATION: 2W PT TYPE: IP AGE: 59 SEX: F ADMISSION DATE: 07/31/2020 DATE OF SERVICE: 08/02/2020 SURGEON: Gaviota London MD 1ST THIRD LOADER: Huyen Morgan CNP 2ND THIRD LOADER: Stanley Bassett DO ANESTHESIA: General endotracheal. ESTIMATED BLOOD LOSS: 200 mL. INTRAVENOUS FLUIDS: Patient received 3 liters of crystalloid. URINE OUTPUT: 800 mL. COMPLICATIONS: There were no intraoperative complications. INDICATIONS FOR PROCEDURE: patient is a 59-year-old female status post previous T10-L4 instrumentation who presented with increased thoracic kyphosis. Patient was scheduled for a 2-stage deformity correction. Patient presented for a stage 2 T4 to ilium reconstruction. Surgical benefits and risks were discussed in detail including bleeding, infection, CSF leak, paralysis, failure to improve, need for further surgeries, vascular injury, lung injury, , stroke, myocardial infarction, DVT, PE. Patient was willing to proceed. PREPROCEDURE DIAGNOSIS: Status post previous T10-L4 instrumentation, increased thoracic kyphosis, intractable back pain, failure of conservative therapy. NAME OF PROCEDURE: 1. Posterior T4 to ilium instrumentation utilizing [place] spine instrumentation. 2. T4-L1 revision. 3. Bilateral superior iliac crest osteotomies. 4. Bilateral Rona osteotomies, T6-T7, T7-T8, T8-T9, T9-T10. 5. Correction of thoracic kyphosis. 6. T4 to ilium posterolateral arthrodesis utilizing autologous and allogenous bone graft. 7. Utilization of intraoperative somatosensory or motor evoked potential monitoring. DESCRIPTION OF PROCEDURE: After patient was identified in the preoperative area, she was brought toward the operating room where she was intubated. Perioperative antibiotics were administered. Bilateral somatosensory and motor evoked potential monitoring was established. Patient was placed prone on Claudio table and the pressure points were double padded. Intraoperative C-arm was used to identify operative levels from T4 to ilium. Patient's thoracolumbosacral spine was prepped and draped in sterile fashion. Linear midline incision was made with number 20 scalpel. Dissection was carried down through subcutaneous tissue to thoracic fascia which was opened bilaterally. Subperiosteal dissection plane over spinous process and lamina of T4-T10 was established. Previous instrumentation was identified. Dissection was carried down further caudally. Lumbosacral fascia was opened. Extensive scar tissue was encountered. Previous instrumentation was exposed from T10-L4. It was consistent with [place] spine instrumentation. Dissection was carried down further caudally and L5 and S1 levels were exposed with instability in between L4-L5. Intraoperative C-arm was used to confirm levels. At that point, self-retaining retractors were applied and dissection was carried further laterally and full exposure of T4-S1 was achieved. At that point, bilateral superior iliac crests were also exposed in standard technique. T10-L4 revision was started with removal of 2 cross links in between T11-T12 and L2-L3. This was followed by all the set screws bilaterally and titanium rods. Scar tissue from screw heads was removed and integrity of all the pedicle screws was checked and there was no evidence of pseudarthrosis. At that point, we proceeded with instrumentation utilizing [place] spine instrumentation. At T4 level considering patient's osteoporosis and deformity, bilateral large transverse process hooks were placed. This was followed by placement of T6 pedicle screws, first from the left. A high-speed [employer] Shawn drill was used for a pilot steam yacht hole. Pedicle was transversed with pedicle finder. Interior of pedicle was verified. A 6.5 x 40-mm pedicle screw by [employer] was inserted followed with same size pedicle screw on the right side. Patient's somatosensory and motor evoked potentials remained stable. T6 level was performed next on the left side. Bilateral 5.5 x 40-mm pedicle screws were inserted with standard techniques. Then, we progressed to thoracic 7 level. Again, from the left, first 5.5 x 40-mm pedicle screw was inserted followed with same-size pedicle screw on the right side. Patient's somatosensory and motor evoked potentials remained stable. At left T8, high-speed [employer] Shawn drill was used for a pilot steam yacht hole. Pedicle was transversed with pedicle finder. Interior of the pedicle was verified. A 5.5 x 45-mm pedicle screw was inserted followed with same-size pedicle screw on the right side. At T9 level, again, bilateral 5.5 x 45-mm pedicle screws were inserted with relatively good purchase. At this point, we proceeded to left L5 level where, utilizing standard technique, 6.5 x 45-mm pedicle screw (more content not included)... Normal [facility] Basic Metabolic Panelon 06-2 Anion gap [Moles/Vol] 6 mmol/L Low 8-15 [facility] Comment on above: Performed By: #### B MP #### [facility] [address] [place] [address] 73930 Calcium [Mass/Vol] 8.9 mg/dL Normal 8.6-10.6 [facility] Comment on above: Performed By: #### B MP #### [facility] [address] [place] [address] 49342 Chloride [Moles/Vol] 104 mmol/L Normal 98-107 [facility] Comment on above: Performed By: #### B MP #### [facility] [address] [place] [address] 79086 CO2 [Moles/Vol] 28 mmol/L Normal 22-29 [facility] Comment on above: Performed By: #### B MP #### [facility] [address] [place] [address] 44510 Creatinine [Mass/Vol] 0.7 mg/dL Normal 0.5-1.2 [facility] Comment on above: Performed By: #### B MP #### [facility] [address] [place] [address] 10273 eGFR -Amer >=60 Normal >=60 [facility] Comment on above: Performed By: #### B MP #### [facility] [address] [place] [address] 69604 GFR/1.73 sq M.predicted among non-blacks MDRD (S/P/Bld) [Vol rate/Area] mL/min/{1.73_m2} Normal >=60 [facility] Comment on above: Performed By: #### B MP #### [facility] [address] [place] [address] 70324 Glucose [Mass/Vol] 102 mg/dL Normal 74-109 [facility] Comment on above: Performed By: #### B MP #### [facility] [address] [place] [address] 30530 Potassium [Moles/Vol] 4.6 mmol/L Normal 3.4-5.1 [facility] Comment on above: Performed By: #### B MP #### [facility] [address] [place] [address] 65976 Sodium [Moles/Vol] 138 mmol/L Normal 136-145 [facility] Comment on above: Performed By: #### B MP #### [facility] [address] [place] [address] 71312 Urea nitrogen [Mass/Vol] 8 mg/dL Normal 6-23 [facility] Comment on above: Performed By: #### B MP #### [facility] [address] [place] [address] 93306 CBC with Diffon 08-01-2020 BA# 0.1 x(10)3/cumm Normal 0.0-0.1 [facility] Comment on above: Performed By: #### C RPR #### [facility] [address] [place] [address] 31364 Basophils/100 WBC (Bld) 0.6 % Normal 0.0-1.0 [facility] Comment on above: Performed By: #### C RPR #### [facility] [address] [place] [address] 35849 EO# 0.0 x(10)3/cumm Normal 0.0-0.4 [facility] Comment on above: Performed By: #### C RPR #### [facility] [address] [place] [address] 71789 Eosinophils/100 WBC (Bld) 0.1 % Normal 0.0-6.1 [facility] Comment on above: Performed By: #### C RPR #### [facility] [address] [place] [address] 43836 Erythrocyte distribution width (RBC) [Ratio] 12.4 % Normal 11.1-15.3 [facility] Comment on above: Performed By: #### C RPR #### [facility] [address] [place] [address] 64738 Hematocrit (Bld) [Volume fraction] 35.6 % Normal 34.6-45.0 [facility] Comment on above: Performed By: #### C RPR #### [facility] [address] [place] [address] 16782 Hemoglobin (Bld) [Mass/Vol] 12.2 g/dL Normal 11.5-15.5 [facility] Comment on above: Performed By: #### C RPR #### [facility] [address] [place] [address] 22302 LY# 1.8 x(10)3/cumm Normal 0.8-2.9 [facility] Comment on above: Performed By: #### C RPR #### [facility] [address] [place] [address] 30684 Lymphocytes/100 WBC (Bld) 14.2 % Normal 12.2-42.6 [facility] Comment on above: Performed By: #### C RPR #### [facility] [address] [place], [place] [phone] MCH (RBC) [Entitic mass] 32.5 pg Normal 27.2-33.6 [facility] Comment on above: Performed By: #### C RPR #### [facility] [address] [place], [place] [phone] MCHC (RBC) [Mass/Vol] 34.2 g/dL Normal 32.9-35.3 [facility] Comment on above: Performed By: #### C RPR #### [facility] [address] [place] [address] 71161 MCV (RBC) [Entitic vol] 94.9 fL Normal 81.3-96.7 [facility] Comment on above: Performed By: #### C RPR #### [facility] [address] [place], [place] [id number] MO# 1.2 x(10)3/cumm High 0.2-0.8 [facility] Comment on above: Performed By: #### C RPR #### [facility] [address] [place], [place] [phone] Monocytes/100 WBC (Bld) 9.2 % Normal 3.3-11.6 [facility] Comment on above: Performed By: #### C RPR #### [facility] [address] [place] [address] 92098 NE# 9.5 x(10)3/cumm High 1.3-7.4 [facility] Comment on above: Performed By: #### C RPR #### [facility] [address] [place] [address] 60082 Neutrophils/100 WBC (Bld) 75.9 % Normal 44.9-78.8 [facility] Comment on above: Performed By: #### C RPR #### [facility] [address] [place] [address] 33023 Platelet mean volume (Bld) [Entitic vol] 8.1 fL Normal 6.4-10.0 [facility] Comment on above: Performed By: #### C RPR #### [facility] [address] [place], [place] [id number] PLT 330 x(10)3/cumm Normal 138-367 [facility] Comment on above: Performed By: #### C RPR #### [facility] [address] [place] [address] 42114 Plt Morph Normal [facility] Comment on above: Performed By: #### C RPR #### [facility] [address] [place] [address] 05932 RBC 3.75 X(10)6/cumm Low 3.90-5.10 [facility] Comment on above: Performed By: #### C RPR #### [facility] [address] [place] [address] 97680 RBC Morph cont Normal [facility] Comment on above: Performed By: #### C RPR #### [facility] [address] [place], [place] [phone] RBC morphology finding Nom (Bld) Normal [facility] Comment on above: Performed By: #### C RPR #### [facility] [address] [place], [place] [id number] WBC 12.6 x(10)3/cumm High 3.6-10.3 [facility] Comment on above: Performed By: #### C RPR #### [facility] [address] [place] [address] 48630 WBC Morph Normal [facility] Comment on above: Performed By: #### C RPR #### [facility] [address] [place] [address] 65661 Operative Reporton Operative Report [facility] [address] [place] [address] 30369 RECORD OF PROCEDURE PATIENT NAME: MARY VALIENTE DATE OF : 1960 MED REC #: [id number] PT LOCATION: 2W PT TYPE: IP AGE: 59 SEX: F ADMISSION DATE: 07/31/2020 DATE OF SERVICE: 07/31/2020 SURGEON: Marquise Ferrell DO 1ST THIRD LOADER: Jose Martin Huitron DO INDICATIONS FOR PROCEDURE/FINDINGS: The patient was needing disk surgery. I was asked to do exposure for an ALIF procedure. Two levels needed to be exposed, L4-5, L5-S1. We exposed these. Dr. London's dictation with follow separately. The patient was explained procedure risks, benefits, complications, and alternatives. PREPROCEDURE DIAGNOSIS: Lumbar disk disease of the lumbar spine. POSTPROCEDURE DIAGNOSIS: Lumbar disk disease of the lumbar spine. NAME OF PROCEDURE: Retroperitoneal exposure of the L4-5, L5-S1 lumbar disks for anterior lumbar interbody fusion procedure. DESCRIPTION OF PROCEDURE: Dr. Huitron was 1st assist on the case, assisted in opening and exposure, helped with retraction. No residents were available because of educational day. Patient taken to the operating room, given anesthetic per the anesthesia department. Sterile prep and drape carried out to the abdomen. After appropriate timeout given anesthetic. Paramedian incision made, carried through subcutaneous tissue, dissected through the anterior fascial plane with sharp dissection. Rectus abdominis muscles were retracted laterally. We then went to the lateral gutter. We went retroperitoneally. We excised some of the transversalis fascia laterally. We dissected down to the psoas muscle and the iliac arteries and veins. Following this, a self-retaining retractor was subsequently placed. We then subsequently positioned our retractors. We went in between the right and left iliac arteries and veins. I took the prevertebral fascia off the L5-S1 lumbar disk space. It was identified by needle localization. Small sacral artery was identified. It was tied off proximally and distally and clipped. We then exposed the entire disk space. At this point, we repositioned our retractors. We went cephalad. We took the iliac arteries and veins and retracted them medially, went down to the L4-5 lumbar disk space. There was an ascending lumbar vein, which was identified. It was tied off proximally and distally and transected. Then, took the prevertebral fascia off the lumbar disk space, positioned our retractors, and exposed the entire disk space. It was identified by needle localization and fluoroscopy. Dr. London was then called into the room. He subsequently need the ALIF procedure. We helped him with some retraction during this. He did the L4-5 first and then L5-S1. We helped reposition retractors at that point. Following the completion of his procedure, we subsequently irrigated and inspected. Sponge count and instrument count were correct . We let everything fall back in its normal anatomical position. Again, his portion of the dictation will follow separately. Hemostasis was adequate. We then closed the anterior fascial plane with double-stranded PDS suture, deep dermal with a Vicryl suture, skin with a subcuticular stitch. Dermabond dressing applied. Patient taken to recovery room in stable condition. Marquise Ferrell DO [facility]/[id number] SSI File#: [id number] CC: Marquise Ferrell DO [facility] Operative Report [facility] [address] [place], [place] [address] RECORD OF PROCEDURE PATIENT NAME: MARY VALIENTE DATE OF : 1960 MED REC #: [id number] PT LOCATION: 2W PT TYPE: IP AGE: 59 SEX: F ADMISSION DATE: 07/31/2020 DATE OF SERVICE: 07/31/2020 SURGEON: Gaviota London MD CO-SURGEON: Marquise Ferrell DO 1ST THIRD LOADER: Huyen Morgan CNP 2ND THIRD LOADER: Stanley Bassett DO ANESTHESIA: General endotracheal. ESTIMATED BLOOD LOSS: 50 mL. FLUIDS: Patient received 1500 mL of crystalloid. URINARY OUTPUT: 100 mL. COMPLICATIONS: There were no intraoperative complications. INDICATIONS FOR PROCEDURE: Patient is a 59-year-old female with progressive thoracolumbar kyphosis, deformity, intractable pain, increased disability, and failure of conservative therapy. Patient's imaging demonstrated previous instrumentation and increased kyphosis. Patient decided to go ahead with 2-stage spinal reconstruction. Patient presented for stage 1 which consisted of anterior ALIF, L4-5, L5-S1. Surgical benefits and risks were discussed in detail including bleeding, infection, bowel injury, vascular injury, CSF leak, failure to improve, need for further surgeries, increased weakness, increased numbness, , stroke, myocardial infarction, DVT, PE. Patient was willing to proceed. PREPROCEDURE DIAGNOSIS: Thoracolumbar kyphosis, progressive deformity, failure of conservative therapy. POSTPROCEDURE DIAGNOSIS: Thoracolumbar kyphosis, progressive deformity, failure of conservative therapy. NAME OF PROCEDURE: Part 1 of deformity correction and it is left paramedial incision, left retroperitoneal approach, L4-5, L5-S1 anterior diskectomies, L4-5, L5-S1 interbody arthrodesis utilizing PEEK interbody spacers and allogenous bone. DESCRIPTION OF PROCEDURE: After patient was identified while in the preoperative area, she was bought towards the operating room, where she was intubated. Perioperative antibiotics were administered. Patient was placed supine on flat Claudio table, and her pressure points were doubly padded. Intraoperative C-arm was used to identify operative levels, and patient's anterior abdomen was prepped and draped in standard fashion. Left paramedial linear incision was made by Dr. Ferrell and exposure was obtained by him, and it will be dictated separately. I entered the operative field after great vessels were moved aside, and anterior lumbar spine L4-5, L5-S1 was exposed. First, we started with L4-5 diskectomy utilizing a No. 15 blade. Annulotomy was made. Complete diskectomy was performed with pituitary ronguers, Kerrison ronguers, rasps, down and upbiting curettes. After complete diskectomy, end plates were prepared for anterior interbody arthrodesis, which was performed with 15-mm height PEEK interbody spacer which also had 15 degree of lordosis. Spacer was packed with allogenous bone, inserted with standard techniques. A 6.2 x 25-mm trauma screw with washer was placed inside L4 vertebra to secure the interbody device. AP lateral, C-arm images demonstrated good placement of instrumentation. At that point, we proceeded with L5-S1 anterior diskectomy. Again, No. 15 blade was used for annulotomy. Complete diskectomy was carried out with Ochoa elevators, rasps, curettes, pituitary ronguers. After complete L5-S1 diskectomy, end plates were prepared for interbody grafting. Anterior interbody grafting L5-S1 level was performed with 15-mm height PEEK interbody spacer with 15 degrees or lordosis. It was inserted with standard techniques. Prior to insertion, it was filled with allogenous bone. Again, a 6.5 x 25-mm trauma screw with washer was placed to sacrum, and interbody device was secured. AP, lateral, C-arm views demonstrated good placement of interbody grafts. Copious irrigation was used. Hemostasis was achieved. Closure was performed by Dr. Ferrell, and it will be dictated separately. Patient was extubated. Patient was taken over to recovery room with stable vital signs. At the end of procedure, needle and sponge count was correct. There were no intraoperative complications. MD KRYSTA Briscoe/[id number] SSI File#: [id number] CC: Gaviota London MD [facility] Basic Metabolic Panelon 07-10 Anion gap [Moles/Vol] 9 mmol/L Normal 8-15 [facility] Comment on above: Performed By: #### B MP #### [address] [address] Calcium [Mass/Vol] 9.2 mg/dL Normal 8.6-10.6 [facility] Comment on above: Performed By: #### B MP #### [facility] [address] [place] [address] 19715 Chloride [Moles/Vol] 100 mmol/L Normal 98-107 [facility] Comment on above: Performed By: #### B MP #### [facility] [address] [place] [address] 84123 CO2 [Moles/Vol] 24 mmol/L Normal 22-29 [facility] Comment on above: Performed By: #### B MP #### [facility] [address] [place] [address] 46096 Creatinine [Mass/Vol] 0.6 mg/dL Normal 0.5-1.2 [facility] Comment on above: Performed By: #### B MP #### [facility] [address] [place] [address] 15655 eGFR -Amer >=60 Normal >=60 [facility] Comment on above: Performed By: #### B MP #### [facility] [address] [place] [address] 63688 GFR/1.73 sq M.predicted among non-blacks MDRD (S/P/Bld) [Vol rate/Area] mL/min/{1.73_m2} Normal >=60 [facility] Comment on above: Performed By: #### B MP #### [facility] [address] [place] [address] 79084 Glucose [Mass/Vol] 97 mg/dL Normal 74-109 [facility] Comment on above: Performed By: #### B MP #### [facility] [address] [place] [address] 98304 Potassium [Moles/Vol] 4.6 mmol/L Normal 3.4-5.1 [facility] Comment on above: Performed By: #### B MP #### [facility] [address] [place] [address] 00867 Sodium [Moles/Vol] 133 mmol/L Low 136-145 [facility] Comment on above: Performed By: #### B MP #### [facility] [address] [place] [address] 61871 Urea nitrogen [Mass/Vol] 14 mg/dL Normal 6-23 [facility] Comment on above: Performed By: #### B MP #### [facility] [address] [place] [address] 79782 CBC with Diffon 07-24-2020 BA# 0.0 x(10)3/cumm Normal 0.0-0.1 [facility] Comment on above: Performed By: #### B IOGI #### [facility] [address] [place] [address] 23775 Basophils/100 WBC (Bld) 0.5 % Normal 0.0-1.0 [facility] Comment on above: Performed By: #### B IOGI #### [facility] [address] [place] [address] 53114 EO# 0.0 x(10)3/cumm Normal 0.0-0.4 [facility] Comment on above: Performed By: #### B IOGI #### [facility] [address] [place] [address] 74576 Eosinophils/100 WBC (Bld) 0.6 % Normal 0.0-6.1 [facility] Comment on above: Performed By: #### B IOGI #### [facility] [address] [place] [address] 00345 Erythrocyte distribution width (RBC) [Ratio] 12.4 % Normal 11.1-15.3 [facility] Comment on above: Performed By: #### B IOGI #### [facility] [address] [place] [address] 15548 Hematocrit (Bld) [Volume fraction] 39.7 % Normal 34.6-45.0 [facility] Comment on above: Performed By: #### B IOGI #### [facility] [address] [place] [address] 83883 Hemoglobin (Bld) [Mass/Vol] 13.5 g/dL Normal 11.5-15.5 [facility] Comment on above: Performed By: #### B IOGI #### [facility] [address] [place] [address] 09551 LY# 1.6 x(10)3/cumm Normal 0.8-2.9 [facility] Comment on above: Performed By: #### B IOGI #### [facility] [address] [place] [address] 31224 Lymphocytes/100 WBC (Bld) 19.7 % Normal 12.2-42.6 [facility] Comment on above: Performed By: #### B IOGI #### [facility] [address] [place], [place] [id number] MCH (RBC) [Entitic mass] 32.4 pg Normal 27.2-33.6 [facility] Comment on above: Performed By: #### B IOGI #### [facility] [address] [place] [address] MCHC (RBC) [Mass/Vol] 34.1 g/dL Normal 32.9-35.3 [facility] Comment on above: Performed By: #### B IOGI #### [facility] [address] [place] [address] 41753 MCV (RBC) [Entitic vol] 95.0 fL Normal 81.3-96.7 [facility] Comment on above: Performed By: #### B IOGI #### [facility] [address] [place] [address] MO# 0.6 x(10)3/cumm Normal 0.2-0.8 [facility] Comment on above: Performed By: #### B IOGI #### [facility] [address] [place] [address] 30386 Monocytes/100 WBC (Bld) 7.4 % Normal 3.3-11.6 [facility] Comment on above: Performed By: #### B IOGI #### [facility] [address] [place] [address] 53521 NE# 5.8 x(10)3/cumm Normal 1.3-7.4 [facility] Comment on above: Performed By: #### B IOGI #### [facility] [address] [place] [address] 82006 Neutrophils/100 WBC (Bld) 71.8 % Normal 44.9-78.8 [facility] Comment on above: Performed By: #### B IOGI #### [facility] [address] [place] [address] 50114 Platelet mean volume (Bld) [Entitic vol] 8.1 fL Normal 6.4-10.0 [facility] Comment on above: Performed By: #### B IOGI #### [facility] [address] [place] [address] 31988 PLT 359 x(10)3/cumm Normal 138-367 [facility] Comment on above: Performed By: #### B IOGI #### [facility] [address] [place] [address] 30495 Plt Morph Normal [facility] Comment on above: Performed By: #### B IOGI #### [facility] [address] [place], [place] [id number] RBC 4.17 X(10)6/cumm Normal 3.90-5.10 [facility] Comment on above: Performed By: #### B IOGI #### [facility] [address] [place] [address] 56870 RBC Morph cont Normal [facility] Comment on above: Performed By: #### B IOGI #### [facility] [address] [place] [address] 40851 RBC morphology finding Nom (Bld) Normal [facility] Comment on above: Performed By: #### B IOGI #### [facility] [facility] [address] [place] [id number] WBC 8.0 x(10)3/cumm Normal 3.6-10.3 [facility] Comment on above: Performed By: #### B IOGI #### [facility] [address] [place] [address] WBC Morph Normal [facility] Comment on above: Performed By: #### B IOGI #### [facility] [address] [place], [place] [id number] Crossmatch 1 unit PRBCon Ab Screen Negative Normal NEGATIVE [facility] Comment on above: Order Comment: pt. a lreadt TANDS Performed By: #### X M1LRC ####[facility] [place] [address] Patient ABO A Normal [facility] Comment on above: Order Comment: pt. a lreadt TANDS Performed By: #### X M1LRC ####[facility] [place] [address] Patient Rh Positive Abnormal [facility] Comment on above: Order Comment: pt. a lreadt TANDS Performed By: #### X M1LRC ####[facility] [place] [address] TANDSCR narinder date/time 07-24-2020 1117 [facility] Comment on above: Order Comment: pt. a lreadt TANDS Performed By: #### X M1LRC ####[facility] [place] [address] Unit # [id number] [facility] Comment on above: Order Comment: pt. a lreadt TANDS Performed By: #### X M1LRC ####[facility] [place] [address] Unit ABO/Rh Positive Invalid Interpretation Code [facility] Comment on above: Order Comment: pt. a lreadt TANDS Performed By: #### X M1LRC ####[facility] [place], [place] [id number] Unit Exp 08-30-20 [facility] Comment on above: Order Comment: pt. a lreadt TANDS Performed By: #### X M1LRC ####[facility] [place] [address] XM Compat Compatible Normal COMPATIBLE [facility] Comment on above: Order Comment: pt. a lreadt TANDS Performed By: #### X M1LRC ####[facility] [place] [address] Prothrombin Time / PT INRon 07-24-2020 INR Coag (PPP) [Relative time] 1.1 {INR} Normal 0.8-1.1 [facility] Comment on above: Performed By: #### C RPR #### [place] [address] New Ref Range Please Note: New References Range for PT and PTT test. [facility] Comment on above: Performed By: #### C RPR #### [place] [address] PT Coag (PPP) [Time] 12.3 s Normal 9.4-12.5 [facility] Comment on above: Performed By: #### C RPR #### [place] [address] Ref Range INR Range 0.9-1.1 No rmal 2.0-3.0 Standard Dose 2.5-3.5 High Dose [facility] Comment on above: Performed By: #### C RPR #### [place] [address] Type and Screenon 07-24-2020 Ab Screen Negative Normal NEGATIVE [facility] Comment on above: Performed By: #### C RPR #### [place] [address] Patient ABO A Normal [facility] Comment on above: Performed By: #### C RPR #### [place] [address] Patient Rh Positive Abnormal [facility] Comment on above: Performed By: #### C RPR #### [place] [address] MRI THORACIC SP W/O CONTRAST on 04-20-2020 MRI THORACIC SP W/O CONTRAST MRI THORACIC SP W/O CONTRAST Ordering Physician: Gaviota London MD 04/20/2020 9:[address] THORACIC SPINE WITHOUT CONTRAST: Clinical Statement: Other forms of scoliosis back pain. Comparison: None. TECHNIQUE: Axial and sagittal T1 and T2 sequences were obtained through the thoracic spine FINDINGS: Bipedicular screws are seen at T10, T11, T12 and into the lumbar spine. No compression fractures or malalignment. The bone marrow is age appropriate. There is magnetic susceptibility artifact from the fixation hardware which obscures portions of the paraspinal soft tissues and spinal cord. To the extent of visualization, the spinal cord demonstrates normal signal and morphology. There is no mass in the spinal canal. There is no mediastinal lymphadenopathy the paraspinal soft tissues are within normal limits. The visualized structures in the upper abdomen are unremarkable. There is no spinal stenosis. No appreciable neural foraminal narrowing. There is some facet arthropathy in the lower thoracic spine. IMPRESSION: Postsurgical changes from a spinal fixation extending from T10 into the lower thoracic spine and lumbar spine, no acute abnormality. No spinal stenosis or neural foraminal narrowing ---- Electronic Signature on File ---- Signed By: Ernesto Sprague MD [email or web address] Dictated: 04/20/2020 12:47 PM Signed: 04/20/2020 12:59 PM Reported By: ERNESTO SPRAGUE M.D. Signed By: ERNESTO SPRAGUE M.D. [facility] XR SCOLIOSIS 2V PA STAND/LAT on 05-20-2018 XR SCOLIOSIS 2V PA STAND/LAT * * *Final Report* * * DATE OF EXAM: May 20 2018 10:26AM HMX 5251 - XR SCOLIOSIS 2V PA STAND/LAT / PROCEDURE REASON: Other form of scoliosis of lumbar spine * * * * Physician Interpretation * * * * RESULT: EXAMINATION / TECHNIQUE: XR SCOLIOSIS 2V PA STAND/LAT HISTORY: PT STATES: PAIN ON LT SIDE GOES DOWN HER LEGS Other form of scoliosis of lumbar spine . COMPARISON: 10/22/2017 RESULT: Counting reference: Lumbosacral junction. For the purposes of this report, L4-5 is considered the level of the iliac crest and there are 5 lumbar-type vertebrae. Anatomic Variants: None. Status post spinal fusion from T10 to L4 with bilateral pedicle screws and fusion rods. Hardware is intact. Intervertebral device at the L2-L3 level. There is lucency surrounding the L4 pedicle screws, similar to prior. No new lucency. Normal cervical lordosis, thoracic kyphosis, and lumbar lordosis. Mild left convex curvature. No malalignment. Vertebral body heights are preserved. No acute fracture is identified. Moderate multilevel degenerative disc disease the thoracic spine and lower lumbar spine with disc height loss, degenerative plate changes, and osteophytes. IMPRESSION: Post-operative and degenerative changes, as described. No significant interval change. Unchanged lucency surrounding the L4 pedicle screws. Transcribed Using Voice Recognition Transcribe Date/Time: May 20 2018 12:34P Dictated by: CONRAD MASSEY MD This examination was interpreted and the report reviewed and electronically signed by: CONRAD MASSEY MD on May 20 2018 12:37PM EST [id number] [facility] XR LUMBAR 2V AP/LATon 2018 XR LUMBAR 2V AP/LAT * * *Final Report* * * DATE OF EXAM: Feb 25 2018 10:56AM HMX 5229 - XR LUMBAR 2V AP/LAT / PROCEDURE REASON: S/P lumbar spinal fusion * * * * Physician Interpretation * * * * RESULT: EXAMINATION / TECHNIQUE: XR LUMBAR 2V AP/LAT HISTORY: S/P SPINAL FUSION X 10 MOS. S/P lumbar spinal fusion . COMPARISON: Scoliosis radiographs 10/22/2017, lumbar spine radiographs 05/05/2017 RESULT: Counting reference: Lumbosacral junction. For the purposes of this report, L4-5 is considered the level of the iliac crest and there are 5 lumbar-type vertebrae. Anatomic Variants: None. Postoperative changes of spinal fusion from T10 to L4 with bilateral pedicle screws and fusion rods. Increased lucency surrounding the L4 pedicle screws bilaterally. Normal lumbar lordosis. Thoracolumbar left convex curvature, mild. No malalignment. Mild unchanged chronic wedging of the T9 and T10 vertebral bodies. No acute fracture is identified. Mild degenerative disc disease at L4-L5 and L5-S1 with disc height loss, degenerative plate changes, and osteophytes. Mild lower lumbar facet arthropathy. Right abdominal surgical clips. IMPRESSION: Postoperative and degenerative changes, as described. Increased lucency surrounding the L4 pedicle screws bilaterally suggests loosening. Transcribed Using Voice Recognition Transcribe Date/Time: Feb 25 2018 12:32P Dictated by: CONRAD MASSEY MD This examination was interpreted and the report reviewed and electronically signed by: CONRAD MASSEY MD on Feb 25 2018 12:35PM EST [id number]_[facility] XR SCOLIOSIS 2V PA STAND/LAT on 10-22-2017 XR SCOLIOSIS 2V PA STAND/LAT * * *Final Report* * * DATE OF EXAM: Oct 22 2017 9:17AM X 5251 - XR SCOLIOSIS 2V PA STAND/LAT / PROCEDURE REASON: secondary scoliosis * * * * Physician Interpretation * * * * RESULT: EXAMINATION / TECHNIQUE: XR SCOLIOSIS 2V PA STAND/LAT HISTORY: PT STATES FU LUMBAR Sx secondary scoliosis. COMPARISON: 06/09/2017 RESULT: Intact posterior fixation hardware is seen at T10-L4 with interbody device in place at L2/3. Lucency is noted around the L4 pedicle screws. Stable mild thoracolumbar levocurvature. Stable accentuated thoracic kyphosis. Stable mild height loss of the T10 vertebral body. Minor anterolisthesis of L2 on L3 and L3 on L4 similar to prior. Discogenic degenerative changes in the thoracic and lumbar spine are similar to prior. IMPRESSION: Postoperative and degenerative changes. New lucency around the L4 pedicle screws which can be correlated with loosening. Transcribed Using Voice Recognition Transcribe Date/Time: Oct 22 2017 9:54A Dictated by: ISIDORO TERAN MD This examination was interpreted and the report reviewed and electronically signed by: ISIDORO TERAN MD on Oct 22 2017 9:57AM EST [id number] XR SCOLIOSIS 2V PA STAND/LAT on 06-09-2017 XR SCOLIOSIS 2V PA STAND/LAT * * *Final Report* * * DATE OF EXAM: Jun 09 2017 9:38AM X 5251 - XR SCOLIOSIS 2V PA STAND/LAT / PROCEDURE REASON: SCOLIOSIS * * * * Physician Interpretation * * * * RESULT: SCOLIOSIS STUDY, 6 VIEWS HISTORY: Scoliosis TECHNIQUE: AP view of thoracic, lumbar, and thoracolumbar spine as well as lateral views of thoracic, lumbar, and thoracolumbar spine. RESULT: Intact posterior fixation hardware is noted at T10-L4, with interbody device in place at L2/3. There is a mild thoracolumbar levocurvature. Slightly accentuated thoracic kyphosis. Stable mild height loss of the T10 vertebral body compared to lumbar spine x-rays 05/05/2017. Vertebral body heights otherwise maintained. Grade 1 anterolisthesis of L2 on L3 not definitely seen on prior. Multilevel discogenic degenerative changes in the thoracic and lumbar spine. IMPRESSION: Postoperative and degenerative changes. Stable T10 vertebral body height loss. Transcribed Using Voice Recognition Transcribe Date/Time: Jun 09 2017 9:46A Dictated by: ISIDORO TERAN MD This examination was interpreted and the report reviewed and electronically signed by: ISIDORO TERAN MD on Jun 09 2017 9:49AM EST [id number] [facility] CT ABDOMEN AND PELVIS WITH C ONTRASTon 04-22-2017 CT ABDOMEN AND PELVIS WITH CONTRAST Performed at [facility] APPROVED BY: YANETH APODACA MD EXAMINATION: CT ABDOMEN AND PELVIS WITH IV CONTRAST HISTORY: ER adult presented with lack of bowel movement for one week as well as nausea vomiting after back surgery one week ago. History of cholecystectomy and hysterectomy. TECHNIQUE: CT of the abdomen and pelvis was performed using standard technique, scanning from just above the dome of the diaphragm to the thigh. MQ: CTAP_3 Contrast:IV: 100 ml of Omnipaque 300. : ml of CT Radiation dose: Integrated Dose-length product (DLP) for this visit = 227.5 mGy*cm.CT Dose Reduction Employed: Automated exposure control. COMPARISON: None. RESULT: Limitations: Streak artifacts caused by the spine fusion hardware and motion artifacts. LOWER CHEST: The heart size is normal.No pericardial effusion. There are some areas of subpleural dependent atelectasis at the bases.Focal linear densities noted in the lingula and the right middle lobe and appears associated with air bronchograms and some bronchiectasis in the right middle lobe consistent with chronic atelectasis.No focal consolidation, pleural effusion or pneumothorax. ABDOMEN: Liver: The liver is enhancing homogeneously. No parenchymal laceration or enhancing parenchymal lesions. There is preserved enhancement in the portal vein and immediate branches. Biliary: No intra or extrahepatic biliary dilatation. Status post cholecystectomy. Spleen: The spleen is not enlarged with no enhancing focal lesions. Pancreas: The pancreas is not enlarged with no secondary findings to suggest acute pancreatitis. No enhancing focal parenchymal lesions. Adrenals: The adrenal glands appear unremarkable with no focal lesions. Kidneys: There is fullness and mild dilatation of the left extrarenal pelvis with fullness of the calyces suggesting mild hydronephrosis with no right hydronephrosis. No enhancing masses detected. No suspicious stranding of the perinephric fat. GI tract: The bowel loops are normal in caliber. The appendix is visualized and appears unremarkable. No suspicious bowel wall thickening. Tiny fat-containing umbilical hernia with no bowel containing abdominal wall or inguinal hernia. Moderate to large amount of stool mostly in the right and transverse colon. Lymph nodes: No enlarged abdominal/pelvic lymphadenopathy. Mesentery/Peritoneum: No suspicious mass or contrast extravasation.No intra-abdominal free air or free fluid. Vasculature: The IVC and aorta are normal in caliber. There are atherosclerotic plaques in the abdominal aorta with no abdominal aortic aneurysmal dilatation. There is preserved enhancement in the iliac vessels as well as the major abdominal aortic branches, SMV, renal veins and splenic vein. Bones/Soft Tissues: Status post lower thoracic/upper lumbar spine fusion with pedicle screws and plates. There is mild anterolisthesis of L3 over L4 and L2 to over L3.No acute compression deformities. There is subtle swelling of the paraspinal muscles and posterior subcutaneous fat stranding most likely related to postoperative changes with no evidence of loculated fluid collections within the limitation of CT detection. Nonspecific hypodense structure noted in the left iliac bone which short transition zone favoring nonaggressive morphology and may represent a small intraosseous ganglion or lipoma. PELVIS:The bladder is poorly filled with no definite internal filling defect/stone.Status post hysterectomy. The ovaries are identified and appear symmetric with no enlargement. No definite adnexal mass. IMPRESSION: No acute abnormality. Findings as above. Normal [facility] Comprehensive Panelon 2017 Alkaline phosphatase (ALP) 92 U/L Normal 46-116 [facility] Comment on above: Performed By: #### P 14 ####[address] [address] Bilirubin Ql (U) 0.3 mg/dL Normal 0.2-1.0 [facility] Comment on above: Performed By: #### P 14 ####[facility] [place], [place] [address] Protein 6.6 g/dL Normal 6.4-8.2 [facility] Comment on above: Performed By: #### P 14 ####[address] [address] Alanine aminotransferase (ALT) 37 U/L Normal 12-78 [facility] Comment on above: Performed By: #### P 14 ####[facility] [place], [place] [address] Aspartate aminotransferase (AST) 47 U/L High 9-37 [facility] Comment on above: Performed By: #### P 14 ####[facility] [place], [place] [address] Creatinine 0.44 mg/dL Low 0.51-0.95 [facility] Comment on above: Performed By: #### P 14 ####[facility] [place], [place] [address] Albumin 2.9 g/dL Low 3.4-5.0 [facility] Comment on above: Performed By: #### P 14 ####[facility] [place], [place] [address] Glucose mass conc 104 mg/dL High 70-99 [facility] Comment on above: Performed By: #### P 14 ####[facility] [place], [place] [address] Urea nitrogen 8 mg/dL Normal 7-18 [facility] Comment on above: Performed By: #### P 14 ####[address] [address] Anion gap 11 mmol/L Normal 8-16 [facility] Comment on above: Performed By: #### P 14 ####[address] [address] Calcium 9.0 mg/dL Normal 8.5-10.1 [facility] Comment on above: Performed By: #### P 14 ####[facility] [place], [place] [address] CO2 27 mmol/L Normal 21-32 [facility] Comment on above: Performed By: #### P 14 ####[facility] [place], [place] [address] Chloride 98 mmol/L Normal 98-107 [facility] Comment on above: Performed By: #### P 14 ####[address] [address] Potassium molar conc 3.7 mmol/L Normal 3.5-5.1 [facility] Comment on above: Performed By: #### P 14 ####[place] [address] Sodium 132 mmol/L Low 136-145 [facility] Comment on above: Performed By: #### P 14 ####[place] [address] Hemogram/Diffon 04-22-2017 Abs Immature Grans 0.13 thou/cmm High 0.00-0.05 [facility] Comment on above: Performed By: #### C BCD1 ####[place] [address] Abs. Baso 0.03 thou/cmm Normal 0.01-0.08 [facility] Comment on above: Performed By: #### C BCD1 ####[place] [address] Abs. [place] 1.02 thou/cmm High 0.27-0.70 [facility] Comment on above: Performed By: #### C BCD1 ####[place] [address] Abs. Neut 6.44 thou/cmm High 1.56-6.13 [facility] Comment on above: Performed By: #### C BCD1 ####[place] [address] Basophils/100 WBC Auto (Bld) 0.3 % Normal [facility] Comment on above: Performed By: #### C BCD1 ####[place] [address] Eosinophils 0.19 thou/cmm Normal 0.00-0.31 [facility] Comment on above: Performed By: #### C BCD1 ####[place] [address] Eosinophils/100 leukocytes 2.0 % Normal [facility] Comment on above: Performed By: #### C BCD1 ####[place] [address] Erythrocyte distribution width Auto Ratio (RBC) 12.7 % Normal 11.7-14.4 [facility] Comment on above: Performed By: #### C BCD1 ####[place] [address] Erythrocytes (RBC) 3.05 mil/cmm Low 3.93-5.22 [facility] Comment on above: Performed By: #### C BCD1 ####[place] [address] Hematocrit (HCT) 27.4 % Low 34.1-44.9 [facility] Comment on above: Performed By: #### C BCD1 ####[place] [address] Hemoglobin mass conc (Bld) 9.7 g/dL Low 11.2-15.7 [facility] Comment on above: Performed By: #### C BCD1 ####[place] [address] Immature Grans 1.40 % Normal [facility] Comment on above: Performed By: #### C BCD1 ####[place] [address] Lymphocytes 1.48 thou/cmm Normal 1.18-3.74 [facility] Comment on above: Performed By: #### C BCD1 ####[place] [address] Lymphocytes/100 leukocytes 15.9 % Normal [facility] Comment on above: Performed By: #### C BCD1 ####[place] [address] MCH 31.8 pg Normal 25.6-32.2 [facility] Comment on above: Performed By: #### C BCD1 ####[place] [address] MCHC mass conc (RBC) 35.4 % High 31.6-34.8 [facility] Comment on above: Performed By: #### C BCD1 ####[place] [address] MCV 89.8 fL Normal 79.4-94.8 [facility] Comment on above: Performed By: #### C BCD1 ####[facility] [place], [place] [address] Monocytes/100 leukocytes 11.0 % Normal [facility] Comment on above: Performed By: #### C BCD1 ####[address] [address] Platelet mean volume (PMV) 8.9 fL Low 9.4-12.3 [facility] Comment on above: Performed By: #### C BCD1 ####[address] [address] Platelets 550 thou/cmm High 182-369 [facility] Comment on above: Performed By: #### C BCD1 ####[address] [address] RDW SD 41.4 fl Normal 36.4-46.3 [facility] Comment on above: Performed By: #### C BCD1 ####[address] [address] Seg Neutrophil 69.4 % Normal [facility] Comment on above: Performed By: #### C BCD1 ####[address] [address] WBC (Leukocytes) 9.28 thou/cmm Normal 3.98-10.04 [facility] Comment on above: Performed By: #### C BCD1 ####[address] [address] Lactic Acidon 04-22-2017 Lactate 0.8 mmol/L Normal 0.4-2.0 [facility] Comment on above: Performed By: #### L AC ####[address] [address] Lipase Bloodon 04-22-2017 Lipase Blood 78 U/L Normal 73-393 [facility] Comment on above: Performed By: #### L IP ####[address] [address] MDRD GFRon 04-22-2017 eGFR (non-black) mL/min/{1.73_m2} Normal >60mL/m in/1. 73m2 [facility] Comment on above: Result Comment: If t he patient is , multiply the result by 1.210. Performed By: #### G FR ####[address] [address] Urinalysis Routineon 018 Ep Cells Urine 0.9 /hpf Normal 0.0-5.0 [facility] Comment on above: Performed By: #### U RIN2 ####[address] [address] Hyaline Cast 1.2 /lpf High 0.0-1.0 [facility] Comment on above: Performed By: #### U RIN2 ####[address] [address] Urine, bacteria in sediment NONE Normal None [facility] Comment on above: Performed By: #### U RIN2 ####[address] [address] Urine, erythrocytes in sediment by area 2.5 /[HPF] Normal 0.0-5.0 [facility] Comment on above: Performed By: #### U RIN2 ####[address] [address] Urine, leukocytes in sedmiment 1.0 /[HPF] Normal 0.0-5.0 [facility] Comment on above: Performed By: #### U RIN2 ####[address] [address] Bilirubin Urine Negative Normal Negative [facility] Comment on above: Performed By: #### U RIN2 ####[address] [address] Hemoglobin,Urine Negative Normal Negative [facility] Comment on above: Performed By: #### U RIN2 ####[address] [address] Ketone Urine 40 mg/dL Abnormal Negative [facility] Comment on above: Performed By: #### U RIN2 ####[place] [address] Nitrites Urine Negative Normal Negative [facility] Comment on above: Performed By: #### U RIN2 ####[place] [address] Protein Urine Negative Normal Negative [facility] Comment on above: Performed By: #### U RIN2 ####[place] [address] Specific [place], Ur 1.010 Normal 1.005-1.030 [facility] Comment on above: Performed By: #### U RIN2 ####[place] [address] Urine, appearance TURBID Normal [facility] Comment on above: Performed By: #### U RIN2 ####[place] [address] Urine, color YELLOW Normal [facility] Comment on above: Performed By: #### U RIN2 ####[place] [address] Urine, glucose presence Negative Normal Negative [facility] Comment on above: Performed By: #### U RIN2 ####[place] [address] Urine, pH 8.0 [pH] Normal 5.0-8.0 [facility] Comment on above: Performed By: #### U RIN2 ####[place] [address] Urobilinogen,Ur 0.2 EU/dL Normal 0.0-1.0 [facility] Comment on above: Performed By: #### U RIN2 ####[place] [address] WBC (Leukocytes) Negative Normal Negative [facility] Comment on above: Performed By: #### U RIN2 ####[place] [address] Culture, urine Bacteria identified Cx Nom (U) Presumptive E. coli [facility] Work Phone: Vital Signs Date Time Vital Sign Value Performing Clinician Facility 11-04-2024 10:36-0400 Body height 147.[address] Jerrica Marshall MD Work Phone: [facility] 11-04-2024 10:36-0400 Body mass index (BMI) [Ratio] 20.7 kg/m2 Dr. Jerrica Marshall MD Work Phone: [facility] 11-04-2024 10:36-0400 Body temperature 98.1 [degF] Dr. Jerrica Marshall MD Work Phone: [facility] 11-04-2024 10:36-0400 Body weight 44.[address] Jerrica Marshall MD Work Phone: [facility] 11-04-2024 10:36-0400 Diastolic blood pressure 80 mm[Hg] Dr. Jerrica Marshall MD Work Phone: [facility] 11-04-2024 10:36-0400 Heart rate 77 /min Dr. Jerrica Marshall MD Work Phone: [facility] 11-04-2024 10:36-0400 Respiratory rate 16 /min Dr. Jerrica Marshall MD Work Phone: [facility] 11-04-2024 10:36-0400 SaO2% (BldA) [Mass fraction] 99 % Dr. Jerrica Marshall MD Work Phone: [facility] 11-04-2024 10:36-0400 Systolic blood pressure 123 mm[Hg] Dr. Jerrica Marshall MD Work Phone: [facility] 10-20-2024 10:36-0400 Body height 147.[address] Jerrica Marshall MD Work Phone: [facility] 10-20-2024 10:36-0400 Body mass index (BMI) [Ratio] 20.5 kg/m2 Dr. Jerrica Marshall MD Work Phone: [facility] 10-20-2024 10:36-0400 Body temperature 98 [degF] Dr. Jerrica Marshall MD Work Phone: [facility] 10-20-2024 10:36-0400 Body weight 44.[address] Jerrica Marshall MD Work Phone: [facility] 10-20-2024 10:36-0400 Diastolic blood pressure 80 mm[Hg] Dr. Jerrica Marshall MD Work Phone: [facility] 10-20-2024 10:36-0400 Heart rate 66 /min Dr. Jerrica Marshall MD Work Phone: [facility] 10-20-2024 10:36-0400 Respiratory rate 14 /min Dr. Jerrica Marshall MD Work Phone: [facility] 10-20-2024 10:36-0400 SaO2% (BldA) [Mass fraction] 98 % Dr. Jerrica Marshall MD Work Phone: [facility] 10-20-2024 10:36-0400 Systolic blood pressure 124 mm[Hg] Dr. Jerrica Marshall MD Work Phone: [facility] 10-18-2024 07:18-0400 Body weight 44.[address] Jerrica Marshall MD Work Phone: [facility] 10-17-2024 09:49-0400 Body height 147.[address] Jerrica Marshall MD Work Phone: [facility] 10-17-2024 09:49-0400 Body mass index (BMI) [Ratio] 20.7 kg/m2 Dr. Jerrica Marshall MD Work Phone: [facility] 10-17-2024 09:49-0400 Body temperature 97 [degF] Dr. Jerrica Marshall MD Work Phone: [facility] 10-17-2024 09:49-0400 Body weight 44.[address] Jerrica Marshall MD Work Phone: [facility] 10-17-2024 09:49-0400 Diastolic blood pressure 68 mm[Hg] Dr. Jerrica Marshall MD Work Phone: [facility] 10-17-2024 09:49-0400 Heart rate 70 /min Dr. Jerrica Marshall MD Work Phone: [facility] 10-17-2024 09:49-0400 Respiratory rate 18 /min Dr. Jerrica Marshall MD Work Phone: [facility] 10-17-2024 09:49-0400 SaO2% (BldA) [Mass fraction] 98 % Dr. Jerrica Marshall MD Work Phone: [facility] 10-17-2024 09:49-0400 Systolic blood pressure 122 mm[Hg] Dr. Jerrica Marshall MD Work Phone: [facility] 09-27-2024 10:49-0400 Body height 144.8 cm Valorie Oh APRN.MANAGER NICU Work Phone: [facility] 09-27-2024 10:49-0400 Body mass index (BMI) [Ratio] 21.16 kg/m2 Valorie Oh APRN.MANAGER NICU Work Phone: [facility] 09-27-2024 10:49-0400 Body weight 44.36 kg Valorie Oh APRN.MANAGER NICU Work Phone: [facility] 09-27-2024 10:49-0400 Diastolic blood pressure 78 mm[Hg] Valorie Oh APRN.MANAGER NICU Work Phone: [facility] 09-27-2024 10:49-0400 Heart rate 89 /min Valorie Oh APRN.MANAGER NICU Work Phone: [facility] 09-27-2024 10:49-0400 SaO2% (BldA) [Mass fraction] 99 % Valorie Oh APRN.MANAGER NICU Work Phone: [facility] 09-27-2024 10:49-0400 Systolic blood pressure 129 mm[Hg] Valorie Oh APRN.MANAGER NICU Work Phone: [facility] 09-22-2024 11:25-0400 Body temperature 97.9 [degF] Dr. Jerrica Marshall MD Work Phone: [facility] 09-22-2024 11:25-0400 Diastolic blood pressure 59 mm[Hg] Dr. Jerrica Marshall MD Work Phone: [facility] 09-22-2024 11:25-0400 Heart rate 76 /min Dr. Jerrica Marshall MD Work Phone: [facility] 09-22-2024 11:25-0400 Respiratory rate 18 /min Dr. Jerrica Marshall MD Work Phone: [facility] 09-22-2024 11:25-0400 SaO2% (BldA) [Mass fraction] 96 % Dr. Jerrica Marshall MD Work Phone: [facility] 09-22-2024 11:25-0400 Systolic blood pressure 98 mm[Hg] Dr. Jerrica Marshall MD Work Phone: [facility] 09-22-2024 09:38-0400 Body height 147.[address] Jerrica Marshall MD Work Phone: [facility] 09-22-2024 09:38-0400 Body mass index (BMI) [Ratio] 19.9 kg/m2 Dr. Jerrica Marshall MD Work Phone: [facility] 09-22-2024 09:38-0400 Body weight 43.[address] Jerrica Marshall MD Work Phone: [facility] 09-14-2024 14:42-0400 Body height 147.[address] Jerrica Marshall MD Work Phone: [facility] 09-14-2024 14:42-0400 Body mass index (BMI) [Ratio] 20 kg/m2 Dr. Jerrica Marshall MD Work Phone: [facility] 09-14-2024 14:42-0400 Body weight 43.[address] Jerrica Marshall MD Work Phone: [facility] 09-14-2024 14:42-0400 Diastolic blood pressure 78 mm[Hg] Dr. Jerrica Marshall MD Work Phone: [facility] 09-14-2024 14:42-0400 Respiratory rate 18 /min Dr. Jerrica Marshall MD Work Phone: [facility] 09-14-2024 14:42-0400 Systolic blood pressure 121 mm[Hg] Dr. Jerrica Marshall MD Work Phone: [facility] 08-22-2024 09:59-0400 Body height 147.[address] Jerrica Marshall MD Work Phone: [facility] 08-22-2024 09:59-0400 Body mass index (BMI) [Ratio] 20.5 kg/m2 Dr. Jerrica Marshall MD Work Phone: [facility] 08-22-2024 09:59-0400 Body temperature 98.2 [degF] Dr. Jerrica Marshall MD Work Phone: [facility] 08-22-2024 09:59-0400 Body weight 44.[address] Jerrica Marshall MD Work Phone: [facility] 08-22-2024 09:59-0400 Diastolic blood pressure 64 mm[Hg] Dr. Jerrica Marshall MD Work Phone: [facility] 08-22-2024 09:59-0400 Heart rate 113 /min Dr. Jerrica Marshall MD Work Phone: [facility] 08-22-2024 09:59-0400 Respiratory rate 16 /min Dr. Jerrica Marshall MD Work Phone: [facility] 08-22-2024 09:59-0400 SaO2% (BldA) [Mass fraction] 98 % Dr. Jerrica Marshall MD Work Phone: [facility] 08-22-2024 09:59-0400 Systolic blood pressure 100 mm[Hg] Dr. Jerrica Marshall MD Work Phone: [facility] 06-29-2024 10:20-0400 Body height 147.[address] Jerrica Marshall MD Work Phone: [facility] 06-29-2024 10:20-0400 Body mass index (BMI) [Ratio] 21.2 kg/m2 Dr. Jerrica Marshall MD Work Phone: [facility] 06-29-2024 10:20-0400 Body temperature 98.6 [degF] Dr. Jerrica Marshall MD Work Phone: [facility] 06-29-2024 10:20-0400 Body weight 45.[address] Jerrica Marshall MD Work Phone: [facility] 06-29-2024 10:20-0400 Diastolic blood pressure 68 mm[Hg] Dr. Jerrica Marshall MD Work Phone: [facility] 06-29-2024 10:20-0400 Heart rate 83 /min Dr. Jerrica Marshall MD Work Phone: [facility] 06-29-2024 10:20-0400 Respiratory rate 18 /min Dr. Jerrica Marshall MD Work Phone: [facility] 06-29-2024 10:20-0400 SaO2% (BldA) [Mass fraction] 98 % Dr. Jerrica Marshall MD Work Phone: [facility] 06-29-2024 10:20-0400 Systolic blood pressure 98 mm[Hg] Dr. Jerrica Marshall MD Work Phone: [facility] 06-01-2024 14:10-0400 Body temperature 97.3 [degF] Dr. Jerrica Marshall MD Work Phone: [facility] 06-01-2024 14:10-0400 Diastolic blood pressure 73 mm[Hg] Dr. Jerrica Marshall MD Work Phone: [facility] 06-01-2024 14:10-0400 Heart rate 76 /min Dr. Jerrica Marshall MD Work Phone: [facility] 06-01-2024 14:10-0400 Systolic blood pressure 117 mm[Hg] Dr. Jerrica Marshall MD Work Phone: [facility] 06-01-2024 13:43-0400 Respiratory rate 16 /min Dr. Jerrica Marshall MD Work Phone: [facility] 06-01-2024 13:43-0400 SaO2% (BldA) [Mass fraction] 98 % Dr. Jerrica Marshall MD Work Phone: [facility] 05-31-2024 10:41-0400 Body mass index (BMI) [Ratio] 21.2 kg/m2 Dr. Jerrica Marshall MD Work Phone: [facility] 05-31-2024 10:41-0400 Body temperature 98.6 [degF] Dr. Jerrica Marshall MD Work Phone: [facility] 05-31-2024 10:41-0400 Body weight 45.[address] Jerrica Marshall MD Work Phone: [facility] 05-31-2024 10:41-0400 Diastolic blood pressure 77 mm[Hg] Dr. Jerrica Marshall MD Work Phone: [facility] 05-31-2024 10:41-0400 Heart rate 74 /min Dr. Jerrica Marshall MD Work Phone: [facility] 05-31-2024 10:41-0400 Respiratory rate 18 /min Dr. Jerrica Marshall MD Work Phone: [facility] 05-31-2024 10:41-0400 SaO2% (BldA) [Mass fraction] 99 % Dr. Jerrica Marshall MD Work Phone: [facility] 05-31-2024 10:41-0400 Systolic blood pressure 120 mm[Hg] Dr. Jerrica Marshall MD Work Phone: [facility] 05-03-2024 09:49-0400 Body mass index (BMI) [Ratio] 21.1 kg/m2 Dr. Jerrica Marshall MD Work Phone: [facility] 05-03-2024 09:49-0400 Body temperature 98 [degF] Dr. Jerrica Marshall MD Work Phone: [facility] 05-03-2024 09:49-0400 Body weight 45.[address] Jerrica Marshall MD Work Phone: [facility] 05-03-2024 09:49-0400 Diastolic blood pressure 67 mm[Hg] Dr. Jerrica Marshall MD Work Phone: [facility] 05-03-2024 09:49-0400 Heart rate 70 /min Dr. Jerrica Marshall MD Work Phone: [facility] 05-03-2024 09:49-0400 Respiratory rate 16 /min Dr. Jerrica Marshall MD Work Phone: [facility] 05-03-2024 09:49-0400 SaO2% (BldA) [Mass fraction] 100 % Dr. Jerrica Marshall MD Work Phone: [facility] 05-03-2024 09:49-0400 Systolic blood pressure 98 mm[Hg] Dr. Jerrica Marshall MD Work Phone: [facility] 04-05-2024 09:51-0500 Body mass index (BMI) [Ratio] 20.9 kg/m2 Dr. Jerrica Marshall MD Work Phone: [facility] 04-05-2024 09:51-0500 Body temperature 98.1 [degF] Dr. Jerrica Marshall MD Work Phone: [facility] 04-05-2024 09:51-0500 Body weight 45.[address] Jerrcia Marshall MD Work Phone: [facility] 04-05-2024 09:51-0500 Diastolic blood pressure 75 mm[Hg] Dr. Jerrica Marshall MD Work Phone: [facility] 04-05-2024 09:51-0500 Heart rate 67 /min Dr. Jerrica Marshall MD Work Phone: [facility] 04-05-2024 09:51-0500 Respiratory rate 18 /min Dr. Jerrica Marshall MD Work Phone: [facility] 04-05-2024 09:51-0500 SaO2% (BldA) [Mass fraction] 100 % Dr. Jerrica Marshall MD Work Phone: [facility] 04-05-2024 09:51-0500 Systolic blood pressure 113 mm[Hg] Dr. Jerrica Marshall MD Work Phone: [facility] 03-30-2024 15:00-0500 Diastolic blood pressure 75 mm[Hg] Dr. Jerrica Marshall MD Work Phone: [facility] 03-30-2024 15:00-0500 Heart rate 75 /min Dr. Jerrica Marshall MD Work Phone: [facility] 03-30-2024 15:00-0500 Respiratory rate 18 /min Dr. Jerrica Marshall MD Work Phone: [facility] 03-30-2024 15:00-0500 SaO2% (BldA) [Mass fraction] 99 % Dr. Jerrica Marshall MD Work Phone: [facility] 03-30-2024 15:00-0500 Systolic blood pressure 124 mm[Hg] Dr. Jerrica Marshall MD Work Phone: [facility] 03-30-2024 10:46-0500 Body mass index (BMI) [Ratio] 21.1 kg/m2 Dr. Jerrica Marshall MD Work Phone: [facility] 03-30-2024 10:46-0500 Body weight 45.[address] Jerrica Marshall MD Work Phone: [facility] 03-30-2024 09:13-0500 Body temperature 97.5 [degF] Dr. Jerrica Marshall MD Work Phone: [facility] 03-28-2024 10:21-0500 Body height 147 cm Valorie Oh APRN.MANAGER NICU Work Phone: [facility] 03-28-2024 10:21-0500 Body mass index (BMI) [Ratio] 21.12 kg/m2 Valorie Oh APRN.MANAGER NICU Work Phone: [facility] 03-28-2024 10:21-0500 Body weight 45.63 kg Valorie Oh APRN.MANAGER NICU Work Phone: [facility] 03-28-2024 10:21-0500 Diastolic blood pressure 72 mm[Hg] Valorie Oh APRN.MANAGER NICU Work Phone: [facility] 03-28-2024 10:21-0500 Heart rate 99 /min Valorie Oh APRN.MANAGER NICU Work Phone: [facility] 03-28-2024 10:21-0500 SaO2% (BldA) [Mass fraction] 98 % Valorie Oh APRN.MANAGER NICU Work Phone: [facility] 03-28-2024 10:21-0500 Systolic blood pressure 111 mm[Hg] Valorie Oh APRN.MANAGER NICU Work Phone: [facility] 03-08-2024 09:43-0500 Body mass index (BMI) [Ratio] 21.3 kg/m2 Dr. Jerrica Marshall MD Work Phone: [facility] 03-08-2024 09:43-0500 Body temperature 98.6 [degF] Dr. Jerrica Marshall MD Work Phone: [facility] 03-08-2024 09:43-0500 Body weight 46.[address] Jerrica Marshall MD Work Phone: [facility] 03-08-2024 09:43-0500 Diastolic blood pressure 76 mm[Hg] Dr. Jerrica Marshall MD Work Phone: [facility] 03-08-2024 09:43-0500 Heart rate 83 /min Dr. Jerrica Marshall MD Work Phone: [facility] 03-08-2024 09:43-0500 Respiratory rate 18 /min Dr. Jerrica Marshall MD Work Phone: [facility] 03-08-2024 09:43-0500 SaO2% (BldA) [Mass fraction] 98 % Dr. Jerrica Marshall MD Work Phone: [facility] 03-08-2024 09:43-0500 Systolic blood pressure 114 mm[Hg] Dr. Jerrica Marshall MD Work Phone: [facility] 02-15-2024 12:57-0500 Body mass index (BMI) [Ratio] 22.4 kg/m2 Dr. Jerrica Marshall MD Work Phone: [facility] 09-28-2023 09:36-0400 Body height 146.7 cm Valorie Oh APRN.MANAGER NICU Work Phone: [facility] 09-28-2023 09:36-0400 Body mass index (BMI) [Ratio] 23.4 kg/m2 Valorie Oh APRN.MANAGER NICU Work Phone: [facility] 09-28-2023 09:36-0400 Body weight 50.35 kg Valorie Oh APRN.MANAGER NICU Work Phone: [facility] 09-28-2023 09:36-0400 Diastolic blood pressure 73 mm[Hg] Valorie Oh APRN.MANAGER NICU Work Phone: [facility] 09-28-2023 09:36-0400 Heart rate 61 /min Valorie Oh APRN.MANAGER NICU Work Phone: [facility] 09-28-2023 09:36-0400 SaO2% (BldA) [Mass fraction] 98 % Valorie Oh APRN.MANAGER NICU Work Phone: [facility] 09-28-2023 09:36-0400 Systolic blood pressure 125 mm[Hg] Valorie Oh APRN.MANAGER NICU Work Phone: [facility] 09-14-2023 08:52-0400 Body mass index (BMI) [Ratio] 23.87 kg/m2 Rosio Chandler MD Work Phone: [facility] 09-14-2023 08:52-0400 Body weight 51.8 kg Rosio Chandler MD Work Phone: [facility] 09-14-2023 08:52-0400 Diastolic blood pressure 71 mm[Hg] Rosio Chandler MD Work Phone: [facility] 09-14-2023 08:52-0400 Heart rate 60 /min Rosio Chandler MD Work Phone: [facility] 09-14-2023 08:52-0400 Respiratory rate 16 /min Rosio Chandler MD Work Phone: [facility] 09-14-2023 08:52-0400 SaO2% (BldA) [Mass fraction] 97 % Rosio Chandler MD Work Phone: [facility] 09-14-2023 08:52-0400 Systolic blood pressure 124 mm[Hg] Rosio Chandler MD Work Phone: [facility] 09-03-2023 10:48-0400 Body height 147.3 cm Bryanna Webber APRN.MANAGER NICU Work Phone: [facility] 09-03-2023 10:48-0400 Body mass index (BMI) [Ratio] 23.18 kg/m2 Bryanna Webber UNDERWRITER.MANAGER NICU Work Phone: [facility] 09-03-2023 10:48-0400 Body temperature 97.81 [degF] Bryanna Webber APRN.MANAGER NICU Work Phone: [facility] 09-03-2023 10:48-0400 Body weight 50.3 kg Bryanna Webber APRN.MANAGER NICU Work Phone: [facility] 09-03-2023 10:48-0400 Diastolic blood pressure 72 mm[Hg] Bryanna Webber UNDERWRITER.MANAGER NICU Work Phone: [facility] 09-03-2023 10:48-0400 Heart rate 74 /min Bryanna Webber APRN.MANAGER NICU Work Phone: [facility] 09-03-2023 10:48-0400 SaO2% (BldA) [Mass fraction] 99 % Bryanna Webber UNDERWRITER.MANAGER NICU Work Phone: [facility] 09-03-2023 10:48-0400 Systolic blood pressure 128 mm[Hg] Bryanna Webber UNDERWRITER.MANAGER NICU Work Phone: [facility] 05-12-2023 08:59-0400 Body height 152.[address] Jerrica Marshall Work Phone: [facility] 05-12-2023 08:59-0400 Body mass index (BMI) [Ratio] 22.6 kg/m2 Dr. Jerrica Marshall Work Phone: [facility] 05-12-2023 08:59-0400 Body temperature 97 [degF] Dr. Jerrica Marshall Work Phone: [facility] 05-12-2023 08:59-0400 Body weight 52.[address] Jerrica Marshall Work Phone: [facility] 05-12-2023 08:59-0400 Diastolic blood pressure 78 mm[Hg] Dr. Jerrica Marshall Work Phone: [facility] 05-12-2023 08:59-0400 Heart rate 103 /min Dr. Jerrica Marshall Work Phone: [facility] 05-12-2023 08:59-0400 Respiratory rate 20 /min Dr. Jerrica Marshall Work Phone: [facility] 05-12-2023 08:59-0400 SaO2% (BldA) [Mass fraction] 95 % Dr. Jerrica Marshall Work Phone: [facility] 05-12-2023 08:59-0400 Systolic blood pressure 128 mm[Hg] Dr. Jerrica Marshall Work Phone: [facility] 04-13-2023 09:12-0500 Body temperature 97.9 [degF] Jose Martin Hagen APRN.MANAGER NICU Work Phone: [facility] 04-13-2023 09:12-0500 Diastolic blood pressure 84 mm[Hg] Jose Martin Hagen APRN.MANAGER NICU Work Phone: [facility] 04-13-2023 09:12-0500 Heart rate 91 /min Jose Martinsupa Hagen APRN.MANAGER NICU Work Phone: [facility] 04-13-2023 09:12-0500 Respiratory rate 20 /min Jose Martin Hagen APRN.MANAGER NICU Work Phone: [facility] 04-13-2023 09:12-0500 SaO2% (BldA) [Mass fraction] 97 % Jose Martin Hagen APRN.MANAGER NICU Work Phone: [facility] 04-13-2023 09:12-0500 Systolic blood pressure 132 mm[Hg] Jose Martin Hagen APRN.MANAGER NICU Work Phone: [facility] 01-26-2023 13:37-0500 Body height 152.[address] Jerrica Marshall Work Phone: [facility] 01-26-2023 13:37-0500 Body mass index (BMI) [Ratio] 23 kg/m2 Dr. Jerrica Marshall Work Phone: [facility] 01-26-2023 13:37-0500 Body temperature 98.7 [degF] Dr. Jerrica Marshall Work Phone: [facility] 01-26-2023 13:37-0500 Body weight 53.[address] Jerrica Marshall Work Phone: [facility] 01-26-2023 13:37-0500 Diastolic blood pressure 88 mm[Hg] Dr. Jerrica Marshall Work Phone: [facility] 01-26-2023 13:37-0500 Heart rate 89 /min Dr. Jerrica Marshall Work Phone: [facility] 01-26-2023 13:37-0500 Respiratory rate 16 /min Dr. Jerrica Marshall Work Phone: [facility] 01-26-2023 13:37-0500 SaO2% (BldA) [Mass fraction] 97 % Dr. Jerrica Marshall Work Phone: [facility] 01-26-2023 13:37-0500 Systolic blood pressure 130 mm[Hg] Dr. Jerrica Marshall Work Phone: [facility] 01-06-2023 11:56-0500 Heart rate 66 /min Bhavanafarheen Dunn DO Work Phone: [facility] 01-06-2023 11:56-0500 Respiratory rate 13 /min Bhavana Josueub DO Work Phone: [facility] 01-06-2023 11:56-0500 SaO2% (BldA) [Mass fraction] 100 % Bhavana Josueub DO Work Phone: [facility] 01-06-2023 11:20-0500 Body temperature 97.59 [degF] Bhavana Dunn DO Work Phone: [facility] 01-06-2023 11:20-0500 Diastolic blood pressure 79 mm[Hg] Bhavana Dunn DO Work Phone: [facility] 01-06-2023 11:20-0500 Systolic blood pressure 150 mm[Hg] [facility]un [facility] 11-19-2022 10:45-0400 Body height 147.3 cm Rosio Chandler MD Work Phone: [facility] 11-19-2022 10:45-0400 Body weight 52.5 kg Rosio Chandler MD Work Phone: [facility] 11-19-2022 10:45-0400 Diastolic blood pressure 76 mm[Hg] Rosio Chandler MD Work Phone: [facility] 11-19-2022 10:45-0400 Heart rate 75 /min Rosio Chandler MD Work Phone: [facility] 11-19-2022 10:45-0400 Respiratory rate 16 /min Rosio Chandler MD Work Phone: [facility] 11-19-2022 10:45-0400 SaO2% (BldA) [Mass fraction] 99 % Rosio Chandler MD Work Phone: [facility] 11-19-2022 10:45-0400 Systolic blood pressure 113 mm[Hg] Rosio Chandler MD Work Phone: [facility] 10-08-2022 10:48-0400 Body height 147.3 cm Rosio Chandler MD Work Phone: [facility] 10-08-2022 10:48-0400 Body weight 50.3 kg Rosio Chandler MD Work Phone: [facility] 10-08-2022 10:48-0400 Diastolic blood pressure 79 mm[Hg] Rosio Chandler MD Work Phone: [facility] 10-08-2022 10:48-0400 Heart rate 70 /min Rosio Chandler MD Work Phone: [facility] 10-08-2022 10:48-0400 Respiratory rate 16 /min Rosio Chandler MD Work Phone: [facility] 10-08-2022 10:48-0400 SaO2% (BldA) [Mass fraction] 100 % Rosio Chandler MD Work Phone: [facility] 10-08-2022 10:48-0400 Systolic blood pressure 120 mm[Hg] Rosio Chandler MD Work Phone: [facility] 09-08-2022 10:59-0400 Body height 147.3 cm Sumeet Leger PA-C Work Phone: [facility] 09-08-2022 10:59-0400 Body temperature 96.49 [degF] Sumeet Leger PA-C Work Phone: [facility] 09-08-2022 10:59-0400 Body weight 50.35 kg Sumeet Leger PA-C Work Phone: [facility] 09-08-2022 10:59-0400 Diastolic blood pressure 83 mm[Hg] Sumeet Leger PA-C Work Phone: [facility] 09-08-2022 10:59-0400 Heart rate 65 /min Sumeet Leger PA-C Work Phone: [facility] 09-08-2022 10:59-0400 SaO2% (BldA) [Mass fraction] 98 % Sumeet Leger PA-C Work Phone: [facility] 09-08-2022 10:59-0400 Systolic blood pressure 128 mm[Hg] Sumeet Leger PA-C Work Phone: [facility] 08-25-2022 12:54-0400 Body height 147.3 cm Sumeet Leger PA-C Work Phone: [facility] 08-25-2022 12:54-0400 Body weight 50.9 kg Sumeet Leger PA-C Work Phone: [facility] 08-25-2022 12:54-0400 Diastolic blood pressure 82 mm[Hg] Sumeet Leger PA-C Work Phone: [facility] 08-25-2022 12:54-0400 Heart rate 58 /min Sumeet Leger PA-C Work Phone: [facility] 08-25-2022 12:54-0400 SaO2% (BldA) [Mass fraction] 100 % Sumeet Leger PA-C Work Phone: [facility] 08-25-2022 12:54-0400 Systolic blood pressure 128 mm[Hg] Sumeet Leger PA-C Work Phone: [facility] 06-26-2022 14:09-0400 Body height 152.[address] Jerrica Marshall Work Phone: [facility] 06-26-2022 14:09-0400 Body mass index (BMI) [Ratio] 21.2 kg/m2 Dr. Jerrica Marshall Work Phone: [facility] 06-26-2022 14:09-0400 Body temperature 98.2 [degF] Dr. Jerrica Marshall Work Phone: [facility] 06-26-2022 14:09-0400 Body weight 49.[address] Jerrica Marshall Work Phone: [facility] 06-26-2022 14:09-0400 Diastolic blood pressure 80 mm[Hg] Dr. Jerrica Marshall Work Phone: [facility] 06-26-2022 14:09-0400 Heart rate 95 /min Dr. Jerrica Marshall Work Phone: [facility] 06-26-2022 14:09-0400 Respiratory rate 12 /min Dr. Jerrica Marshall Work Phone: [facility] 06-26-2022 14:09-0400 SaO2% (BldA) [Mass fraction] 97 % Dr. Jerrica Marshall Work Phone: [facility] 06-26-2022 14:09-0400 Systolic blood pressure 124 mm[Hg] Dr. Jerrica Marshall Work Phone: [facility] 05-26-2022 14:10-0400 Body height 147.3 cm Bryanna Gayatri UNDERWRITER.MANAGER NICU Work Phone: [facility] 05-26-2022 14:10-0400 Body weight 48 kg Bryanna Gayatri UNDERWRITER.MANAGER NICU Work Phone: [facility] 05-26-2022 14:10-0400 Diastolic blood pressure 74 mm[Hg] Bryanna Gayatri UNDERWRITER.MANAGER NICU Work Phone: [facility] 05-26-2022 14:10-0400 Heart rate 71 /min Bryanna Gayatri UNDERWRITER.MANAGER NICU Work Phone: [facility] 05-26-2022 14:10-0400 Respiratory rate 16 /min Bryanna Gayatri UNDERWRITER.MANAGER NICU Work Phone: [facility] 05-26-2022 14:10-0400 SaO2% (BldA) [Mass fraction] 97 % Bryanna Webber APRN.MANAGER NICU Work Phone: [facility] 05-26-2022 14:10-0400 Systolic blood pressure 116 mm[Hg] Bryanna Webber APRN.MANAGER NICU Work Phone: [facility] 05-07-2022 12:54-0400 Body temperature 97.2 [degF] Dr. Jerrica Marshall Work Phone: [facility] 05-07-2022 12:54-0400 Body weight 46.[address] Jerrica Marshall Work Phone: [facility] 05-07-2022 12:54-0400 Diastolic blood pressure 66 mm[Hg] Dr. Jerrica Marshall Work Phone: [facility] 05-07-2022 12:54-0400 Heart rate 110 /min Dr. Jerrica Marshall Work Phone: [facility] 05-07-2022 12:54-0400 Respiratory rate 18 /min Dr. Jerrica Marshall Work Phone: [facility] 05-07-2022 12:54-0400 SaO2% (BldA) [Mass fraction] 97 % Dr. Jerrica Marshall Work Phone: [facility] 05-07-2022 12:54-0400 Systolic blood pressure 106 mm[Hg] Dr. Jerrica Marshall Work Phone: [facility] 04-28-2022 10:29-0400 Body height 152.[address] Jerrica Marshall Work Phone: [facility] 04-28-2022 10:29-0400 Body mass index (BMI) [Ratio] 20.3 kg/m2 Dr. Jerrica Marshall Work Phone: [facility] 04-28-2022 10:29-0400 Body temperature 97.8 [degF] Dr. Jerrica Marshall Work Phone: [facility] 04-28-2022 10:29-0400 Body weight 47.[address] Jerrica Marshall Work Phone: [facility] 04-28-2022 10:29-0400 Diastolic blood pressure 99 mm[Hg] Dr. Jerrica Marshall Work Phone: [facility] 04-28-2022 10:29-0400 Heart rate 105 /min Dr. Jerrica Marshall Work Phone: [facility] 04-28-2022 10:29-0400 Respiratory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 encounter Rosio pagan MD Work Phone: [facility] Comment on above: Patient Update Eye Clinic Manager - O ther Start: 08-18-2022 Telephone encounter Bryanna cervantes UNDERWRITER.MANAGER NICU Work Phone: [facility] Comment on above: Returning Patient's Call Start: 06-26-2022 End: 06-26-[address] Jerrica Marshall Work Phone: [facility] Work Phone: Start: 05-26-2022 End: 05-26-2022 Patient encounter procedure Bryanna Webber UNDERWRITERAngelaMANAGER NICU Work Phone: [facility] Comment on above: Abscess (Primary Dx) Start: 05-07-2022 End: 05-07-[address] Jerrica Marshall Work Phone: [facility] Work Phone: Start: 05-07-2022 End: 05-07-[address] Jerrica Marshall Work Phone: [facility] Internal [facility] Start: 04-28-2022 End: 04-28-2022 Emergency department patient visit Dr. Jerrica Marshall Work Phone: [facility]Emergency Department Start: 01-06-2022 End: 01-06-[address] Jerrica Marshall Work Phone: [facility] Start: 12-11-2021 End: 12-11-[address] Jerrica Marshall Work Phone: [facility] Work Phone: Start: 12-11-2021 End: 12-11-[address] Jerrica Marshall Work Phone: [facility]Laboratory, Specimen Start: 12-11-2021 End: 12-11-[address] Jerrica Marshall Work Phone: [facility] Start: 11-06-2021 End: 11-06-[address] Jerrica Marshall Work Phone: [facility] Start: 10-30-2021 End: 10-30-[address] Jerrica Marshall Work Phone: [facility] Start: 09-23-2021 End: 09-23-[address] Jerrica Marshall Work Phone: [facility] Start: 09-05-2021 End: 09-05-[address] Jerrica Marshall Work Phone: [facility]-Outpatient Bone Densitometry Start: 08-13-[address] Wilberto Marshall Work Phone: [facility] Work Phone: Start: 08-13-2021 End: 08-13-2021 Encounter for general adult medical examination without abnormal findings Dr. Jerrica Marshall Work Phone: [facility] Start: 08-13-2021 End: 08-13-[address] Jerrica Marshall Work Phone: [facility] Start: 07-03-2021 Non-patient / Non-visit Dr. Jordan Marshall Work Phone: [facility] Start: 07-03-2021 End: 07-03-2021 Admission to same day surgery center Dr. Jerrica Marshall Work Phone: [facility]Endoscopy Start: 06-06-2021 End: 06-06-[address] Jerrica Marshall Work Phone: [facility], Specimen Start: 06-06-2021 End: 06-06-[address] Jerrica Marshall Work Phone: [facility] Start: 06-05-2021 End: 06-05-[address] Jerrica Marshall Work Phone: [facility] Start: 05-13-2021 End: 05-13-[address] Jerrica Marshall [facility] Start: 05-09-2021 End: 05-09-[address] Jerrica Marshall Work Phone: [facility] Start: 05-02-2021 End: 05-02-[address] Jerrica Marshall [facility] Start: 04-18-2021 End: 04-18-[address] Jerrica Marshall Work Phone: [facility] [place] Start: 04-15-2021 End: 04-16-2021 ambulatory NO PCP AA NO PCP [facility] ital Start: 03-05-2021 End: 03-05-[address] Jerrica Marshall Work Phone: [facility] Start: 02-06-2021 End: 02-06-[address] Jerrica Marshall Work Phone: [facility] Start: 01-08-[address] Jerrica Marshall Work Phone: [facility] Start: 10-04-2020 End: 10-14-2020 Evaluation [facility] Start: 08-20-2020 End: 08-21-2020 ambulatory TOOKYS [facility] ital Start: 08-08-2020 End: 08-08-2020 Emergency department patient visit NO PCP AA NO PCP [facility] Start: 08-02-2020 ambulatory NO PCP AA NO PCP [facility] Start: 07-31-2020 End: 08-07-2020 Evaluation and management of inpatient SAMER [facility] Start: 07-25-2020 Encounter for other preprocedural examination SALVATORE Perez NP [facility] Start: 07-24-2020 End: 07-25-2020 ambulatory SALVATORE Perez NP [facility] Start: 05-20-2018 End: 05-20-2018 Patient encounter procedure [facility] Start: 02-25-2018 End: 02-25-2018 Patient encounter procedure RODRIGES (PA) [facility] Start: 10-22-2017 End: 10-23-2017 Patient encounter procedure OMKAR Cunha (RENETTA) [facility] Start: 06-09-2017 End: 06-10-2017 Patient encounter procedure [facility] Start: 04-22-2017 End: 04-22-2017 Emergency department patient visit IMCA Facility:[facility] Procedures Date Procedure Procedure Detail Performing Clinician Start: 10-05-2024 Computed tomography of abdomen and pelvis with contrast Dr. Jerirca Marshall MD Work Phone: Start: 09-22-[address] Jerrica Marshall MD Work Phone: Start: 09-13-2024 Radionuclide gastric emptying study Dr. Jerrica Marshall MD Work Phone: Start: 06-29-[address] Kaylee Marshall MD Work Phone: Start: 06-29-2024 Total iron binding capacity measurement Dr. Jerrica Marshall MD Work Phone: Start: 03-30-2024 Computed tomography of abdomen and pelvis with intravenous contrast Dr. Jerrica Marshall MD Work Phone: Start: 03-30-[address] Kaylee Marshall MD Work Phone: Start: 03-30-2024 Measurement of renal function Dr. Cooper Marshall MD Work Phone: Comment on above: GFR Calc Start: 03-22-2024 PET study for localization of tumor Dr. Jerrica Marshall MD Work Phone: Start: 03-08-2024 Measurement of renal function Dr. Cooper Marshall MD Work Phone: Comment on above: GFR Calc Start: 01-26-2024 Assay of phosphorus inorganic Dr. Cooper Marshall MD Work Phone: Start: 01-26-[address] Jerrica Marshall MD Work Phone: Start: 01-20-2024 Measurement of occult blood in stool specimen using immunoassay Dr. Jerrica Marshall MD Work Phone: Start: 12-15-2023 Positron emission tomography with computed tomography Dr. Jerrica Marshall MD Work Phone: Start: 12-09-2023 Hepatitis B surface antibody measurement Dr. Jerrica Marshall MD Work Phone: Comment on above: Non Reactive: Not immune to HBV infectio n. Equivocal: Unable to determine if anti-HBs is present at levels consistent with immunity. Reactive: Anti-HBs concentration detected at greater than 10 mIU/mL. Individual is considered to be immune to infection with HBV. Start: 12-09-2023 Hepatitis C virus recombinant immunoblot measurement Dr. Jerrica Marshall MD Work Phone: Start: 05-12-2023 SARS-CoV-2, Influenza & RSV (PCR) Dr. Jordan Marshall Work Phone: Start: 04-13-2023 COVID AND INFLUENZA A/B & RSV NAAT, EXPEDITED Jose Martin Hagen APRN.MANAGER NICU Work Phone: Start: 01-06-2023 Ct abdomen & pelvis w/contrast material Bhavana Dunn DO Work Phone: Start: 01-06-2023 Ct cervical spine w/o contrast material Bhavana Dunn DO Work Phone: Start: 01-06-2023 Ct head/brain w/o contrast material Bhavana Dunn DO Work Phone: Start: 01-06-2023 CT of thoracic and lumbar spine Bhavnaa noel DO Work Phone: Start: 01-06-2023 End: 01-06-2023 Assay of lipase Bhavana Dunn DO Work Phone: Start: 01-06-2023 Hepatic function panel Bhavana Dunn DO Work Phone: Start: 10-08-2022 H/O: surgery S/P hardware removal Rosio Butterfield MD Work Phone: Start: 04-28-2022 Radiography of thoracic spine Dr. Cooper Marshall Work Phone: Start: 09-05-[address] Jerrica Marshall Work Phone: Start: 09-05-2021 Dual energy X-ray absorptiometry Dr. Rafael Marshall Work Phone: Start: 07-03-[address] Jerrica Marshall Work Phone: Start: 06-06-[address] Jerrica Marshall Work Phone: Start: 05-13-2021 X-ray of cervical spine Dr. Jerrica Marshall Work Phone: Start: 05-02-2021 Computed tomography of abdomen and pelvis with contrast Dr. Jerrica Marshall Work Phone: Start: 10-12-2020 Insertion of Infusion Device into Superior Vena Cava, Percutaneous Approach SAMER NAROUZE Start: 10-12-2020 Ultrasonography of Superior Vena Cava, Guidance SAMER NAROUZE Start: 10-09-2020 Monitoring of Peripheral Nervous Electrical Activity, Intraoperative, External Approach SAMER NAROUZE Start: 10-09-2020 Removal of Internal Fixation Device from Thoracic Vertebral Joint, Open Approach SAMER NAROUZE Start: 10-09-2020 Transfusion of Nonautologous Red Blood Cells into Peripheral Vein, Percutaneous Approach SAMER NAROUZE Start: 10-08-2020 Insertion of Infusion Device into Left Basilic Vein, Percutaneous Approach SAMER NAROUZE Start: 08-03-2020 Transfusion of Nonautologous Red Blood Cells into Peripheral Vein, Percutaneous Approach SAMER NAROU Start: 08-02-2020 Fusion of 2 to 7 Thoracic Vertebral Joints with Autologous Tissue Substitute, Posterior Approach, Posterior Column, Open Approach SAMER NAROUZE Start: 08-02-2020 Insertion of Internal Fixation Device into Left Pelvic Bone, Open Approach SAMER NAROUZE Start: 08-02-2020 Monitoring of Peripheral Nervous Electrical Activity, Intraoperative, External Approach SAMER NAROU Start: 08-02-2020 Removal of Internal Fixation Device from Thoracolumbar Vertebral Joint, Open Approach SAMER NAROU Start: 07-31-2020 Fusion of Lumbosacral Joint with Interbody Fusion Device, Anterior Approach, Anterior Column, Open Approach SAMER NAROU Start: 07-31-2020 Resection of Lumbosacral Disc, Open Approach SAMER Anaerobic microbial culture Dr. Jerrica Marshall Work Phone: H/O: surgery S/P hardware removal Rosio Butterfield MD Work Phone: Investigation of tra nsfusion reaction Dr. Jerrica Marshall Work Phone: Microbial culture, routine D mj Marshall Work Phone: Urine culture Dr. Jerrica Marshall Work Phone: Plan of Treatment Date Care Activity Detail Author Start: 10-31-2034 RSV Vaccine (1 - 1-d ose 75+ series) RSV Vaccine (1 - 1-dose 75+ series) [facility] Start: 09-27-2026 Diabetes Screening Diabetes Screenin [facility] Start: 08-28-2025 DIABETES SCREEN DIABETES SCREEN [facility] Start: 08-28-2025 Diabetes Screening Diabetes Screenin [facility] Start: 08-25-2025 DIABETES SCREEN DIABETES SCREEN [facility] Start: 08-19-2025 DIABETES SCREEN DIABETES SCREEN [facility] Start: 05-11-2025 DIABETES SCREEN DIABETES SCREEN [facility] Start: 10-17-2024 End: 11-08-2024 Discharged Recurring Discharged Recurring -Nutritional Servi power Work Phone: Start: 10-10-2024 Influenza vaccination Influenza Vacc ine (#1) [facility] Start: 10-05-2024 Venous catheter care management [facility] Start: 09-27-2024 End: 09-27-2024 Patient encounter procedure 09/27/2024 11:00 AM EDT Office Visit [facility] [address] [place] [address] Valorie Oh, UNDERWRITER.MANAGER NICU [address] [place] [address] Osteoporosis 6 month follow up [facility] Comment on above: Osteoporosis 6 month follow up Start: 09-22-2024 Egd transoral biopsy single/multiple EGD BIOPSY SINGLE/MULTIPLE [facility] Start: 09-22-2024 [facility] Start: 09-22-2024 Patient discharge [facility] Start: 08-27-2024 Hepatic function panel [facility] Start: 08-27-2024 Triacylglycerol lipa se measurement [facility] Start: 06-29-2024 [facility] Start: 03-30-2024 Venous catheter care management [facility] Start: 03-30-2024 [facility] Start: 01-12-2024 Venous catheter care management [facility] Start: 11-30-2023 End: 11-30-2023 Patient encounter procedure 11/30/2023 11:00 AM EDT Office Visit [facility] [address] [place] [address] Valorie Oh APRN.MANAGER NICU [address] [place] [address] osteo 2 months follow-up [facility] Comment on above: osteo 2 months follo w-up Start: 11-13-2023 End: 11-13-2023 Patient encounter procedure 11/13/2023 12:30 PM EDT Appointment Radiology [address] [place] [id number] Age-related osteoporosis with current pathological fracture with routine healing... Radiology Comment on above: Age-related osteopor osis with current pathological fracture with routine healing... Start: 10-11-2023 Covid-19 Vaccine ( season) Covid-19 Vaccine () [facility] Start: 10-11-2023 Influenza vaccination Influenza Vacc ine (#1) [facility] Start: 09-28-2023 End: 12-28-2023 25-hydroxyvitamin D3 [Mass/volume] in Serum or Plasma [facility] Work Phone: Comment on above: Expected: 09/28/2023 , Expires: 12/28/2023 Start: 09-28-2023 End: 09-28-2023 Patient encounter procedure 09/28/2023 10:00 AM EDT Office Visit [facility] [address] [place] [address] Valorie Oh, UNDERWRITER.MANAGER NICU [address] [place] [address] CONSULT TO OSTEOPOROSIS/ Osteoporosis, unspecified osteoporosis type, unspecified pathological fracture p. [facility] Comment on above: CONSULT TO OSTEOPORO SIS/ Osteoporosis, unspecified osteoporosis type, unspecified pathological fracture p. Start: 09-21-2023 End: 09-21-2023 Follow-up encounter 09/21/2023 2:45 PM EDT [facility] [address] [facility] [address] [facility] [place] [id number] Rosio Butterfield I, MD [address] [place], [place] [id number] 1 week follow up [facility] Comment on above: 1 week follow up Start: 09-14-2023 End: 12-14-2023 C reactive protein [Mass/volume] in Serum or Plasma C-REACTIVE PROTEIN Lab Routine Chronic neck pain History of wound infection Expected: 09/14/2023, Expires: 12/14/2023 [facility] Work Phone: Comment on above: Expected: 09/14/2023 , Expires: 12/14/2023 Start: 09-14-2023 End: 12-14-2023 CBC W Auto Differential panel - Blood COMPLETE BLOOD COUNT AND DIFFERENTIAL Lab Routine Chronic neck pain History of wound infection Expected: 09/14/2023, Expires: 12/14/2023 [facility] Comment on above: Expected: 09/14/2023 , Expires: 12/14/2023 Start: 09-14-2023 End: 12-14-2023 Erythrocyte sedimentation rate SEDIMENTATION RATE, WESTERGREN Lab Routine Chronic neck pain History of wound infection Expected: 09/14/2023, Expires: 12/14/2023 [facility] Comment on above: Expected: 09/14/2023 , Expires: 12/14/2023 Start: 09-14-2023 End: 09-14-2023 Patient encounter procedure RADIO CT SCAN [place] INSTRUCTIONAL ASSISTANT Comment on above: Arthrodesis status [ Z98.1] CT CERVICAL & THORAC IC WO Start: 03-10-2023 Procedure [facility] Start: 02-09-2023 Depression Assessment Depression Ass essment [facility] Start: 10-10-2022 Covid-19 Vaccine ( season) Covid-19 Vaccine ( season) [facility] Start: 10-10-2022 Influenza vaccination [facility] Start: 09-11-2022 Procedure [facility] Start: 09-05-2022 Screening for malign ant neoplasm of breast Mammography [facility] Start: 05-07-2022 Patient referral [facility] Work Phone: Start: 02-09-2022 DEPRESSION ASSESSMENT DEPRESSION ASS ESSMENT [facility] Start: 12-11-2021 Sars-cov-2 detection by dna/rna SARS-COV-2 COVID-19 AMP PRB [facility] Work Phone: Start: 08-13-2021 Patient referral [facility] Work Phone: Start: 07-03-2021 Colonoscopy flx dx w/collj spec when pfrmd DIAGNOSTIC COLONOSCOPY [facility] Work Phone: Start: 07-03-2021 Egd transoral biopsy single/multiple EGD BIOPSY SINGLE/MULTIPLE [facility] Work Phone: Start: 07-03-2021 [facility] Work Phone: Start: 05-09-2021 [facility] Work [facility]: Start: 2019 RSV Vaccine (1 - 1-d ose 60+ series) RSV Vaccine (1 - 1-dose 60+ series) [facility] Start: 2019 RSV vaccine (optiona l 60+ years) RSV vaccine (optional 60+ years) [facility] Start: 10-31-2009 Pneumococcal Vaccine : 50+ (1 of 1 - PCV) Pneumococcal Vaccine: 50+ (1 of 1 - PCV) [facility] Start: 10-31-2009 Shingles (RZV) Vacci ne (1 of 2) Shingles (RZV) Vaccine (1 of 2) [facility] Start: 10-31-2009 SHINGRIX VACCINE (1 of 2) SHINGRIX VACCINE (1 of 2) [facility] Start: 10-31-2004 Cholesterol [Mass/volume] in Serum or Plasma Cholesterol [facility] Start: 10-31-2004 COLOGUARD (FIT-DNA) COLOGUARD (FIT-D NA) [facility] Start: 10-31-2004 Colonoscopy COLONOSCOPY [facility] Start: 10-31-2004 COLORECTAL CANCER SCREENING COLORECTAL CANCER SCREENING [facility] Start: 10-31-[address] COLONOGRAPHY [facility] Start: 10-31-2004 FECAL OCCULT BLOOD FECAL OCCULT BLOO D [facility] Start: 10-31-2004 Lipid 1996 panel - S katharina or Plasma Lipid Screening [facility] Start: 10-31-2004 Lipid panel Lipid Screening [facility] Start: 10-31-2004 LIPID SCREEN LIPID SCREEN [facility] Start: 10-31-2004 Screening for malign ant neoplasm of colon [facility] Start: 10-31-2004 SIGMOIDOSCOPY [facility]OSCOPY [facility] Start: 1999 Mammography [facility] Start: 1999 Screening for malign ant neoplasm of breast Mammogram Screening [facility] Start: 10-31-1989 HPV TESTING HPV TESTING [facility] Start: 10-31-1989 Screening for malign ant neoplasm of cervix HPV Testing [facility] Start: 10-31-1980 PAP TESTING PAP TESTING [facility] Start: 10-31-1980 Screening for malign ant neoplasm of cervix [facility] Start: 10-31-1978 Urine microalbumin profile [facility] Start: 10-31-1977 Anxiety Screening Anxiety Screening [facility] Start: 10-31-1977 Depression Screening Depression Scre ening [facility] Start: 10-31-1977 HEPATITIS C SCREENING HEPATITIS C SC REENING [facility] Start: 10-31-1977 [facility] Start: 10-31-1977 HIV SCREENING HIV SCREENING [facility] Start: 10-31-1977 HIV screening HIV Screening [facility] Start: 10-31-1977 Tetanus + diphtheria + acellular pertussis vaccine (product) Tdap Booster [facility] Start: 10-31-1974 HIV screening HIV Test [facility] Start: 04-30-1960 COVID-19 VACCINE (#1) COVID-19 VACCI NE (#1) [facility] Start: 1959 Screening for malign ant neoplasm of colon Colonoscopy [facility] End: 10-27-2024 BD DXA TRABECULAR BONE SCORE (TBS) BD DXA TRABECULAR BONE SCORE (TBS) Radiology Routine Age-related osteoporosis with current pathological fracture with routine healing, subsequent encounter Encounter for screening for osteoporosis Asymptomatic postmenopausal status 1 Occurrences starting 09/28/2023 until 10/27/2024 [facility] Comment on above: 1 Occurrences starti ng 09/28/2023 until 10/27/2024 End: 01-06-2023 Blood typing serologic abo ABO RH TYPE Lab STAT One time for 1 Occurrences starting 01/06/2023 until 01/06/2023 [facility] Comment on above: One time for 1 Occur rences starting 01/06/2023 until 01/06/2023 CBC W Auto Different ial panel - Blood [facility] CBC W Auto Different ial panel - Blood [facility] metabo lic 1999 panel - Serum or Plasma [facility] metabo lic 1999 panel - Serum or Plasma [facility] CT Abdomen and Pelvi s W contrast IV [facility] End: 10-02-2024 CT Cervical spine WO contrast CT CERVICAL SPINE WO IVCON Radiology Routine Arthrodesis status Spinal stenosis of cervical region 1 Occurrences starting 09/03/2023 until 10/02/2024 [facility] Work Phone: Comment on above: 1 Occurrences starti ng 09/03/2023 until 10/02/2024 CT Cervical spine WO contrast CT CERVICAL SPINE WO IVCON Radiology Routine Arthrodesis status Spinal stenosis of cervical region 09/14/2023 8:55 AM EDT [facility] Work Phone: End: 10-02-2024 CT Thoracic spine WO contrast CT THORACIC SPINE WO IVCON Radiology Routine Arthrodesis status History of thoracic spinal fusion Chronic midline thoracic back pain 1 Occurrences starting 09/03/2023 until 10/02/2024 [facility] Comment on above: 1 Occurrences starti ng 09/03/2023 until 10/02/2024 CT Thoracic spine WO contrast CT THORACIC SPINE WO IVCON Radiology Routine Arthrodesis status History of thoracic spinal fusion Chronic midline thoracic back pain 09/14/2023 8:55 AM EDT [facility] End: 10-27-2024 DXA Skeletal system.axial Views for bone density and vertebral fracture DXA-AXIAL SKELETON WITH VFA Radiology Routine Age-related osteoporosis with current pathological fracture with routine healing, subsequent encounter Encounter for screening for osteoporosis Asymptomatic postmenopausal status 1 Occurrences starting 09/28/2023 until 10/27/2024 [facility] Comment on above: 1 Occurrences starti ng 09/28/2023 until 10/27/2024 DXA Skeletal system.axial Views for bone density and vertebral fracture DXA-AXIAL SKELETON WITH VFA Radiology Routine Age-related osteoporosis with current pathological fracture with routine healing, subsequent encounter Encounter for screening for osteoporosis Asymptomatic postmenopausal status 11/13/2023 1:37 PM EDT [facility] Work Phone: End: 10-27-2024 DXA-FOREARM SKELETON DXA-FOREARM SKELETON Radiology Routine Age-related osteoporosis with current pathological fracture with routine healing, subsequent encounter Encounter for screening for osteoporosis Asymptomatic postmenopausal status 1 Occurrences starting 09/28/2023 until 10/27/2024 [facility] Comment on above: 1 Occurrences starti ng 09/28/2023 until 10/27/2024 DXA-FOREARM SKELETON DXA-FOREARM SKELETON Radiology Routine Age-related osteoporosis with current pathological fracture with routine healing, subsequent encounter Encounter for screening for osteoporosis Asymptomatic postmenopausal status 11/13/2023 1:37 PM EDT [facility] Ferritin [Mass/volum e] in Serum or Plasma [facility] Folate [Moles/volume ] in Serum or Plasma [facility] End: 01-06-2023 HIV 1 and 2 Ab and HIV 1 p24 Ag panel - Serum or Plasma by Immunoassay [email or web address] Comment on above: One time for 1 Occur rences starting 01/06/2023 until 01/06/2023 End: 01-06-2023 Introduction needle/intracatheter vein IV INSERTION Procedures Routine One time for 1 Occurrences starting 01/06/2023 until 01/06/2023 [facility] [email or web address] [facility] Work Phone: Comment on above: One time for 1 Occur rences starting 01/06/2023 until 01/06/2023 Iron and Iron bindin g capacity panel - Serum or Plasma [facility] Lactate dehydrogenas e measurement [facility] Lactate dehydrogenas e measurement [facility] Patient Education [facility] Work Phone: Patient referral [facility] Work Phone: PT Unspecified body region [facility] End: 2023 Radex spine lumbosacral minimum 4 views XR LUMBAR MOTION 4V AP/LAT/ FLEX/EXT Radiology Routine S/P hardware removal 1 Occurrences starting 10/02/2022 until 2023 [facility] Work Phone: Comment on above: 1 Occurrences starti ng 10/02/2022 until 2023 Radex spine lumbosac ral minimum 4 views XR LUMBAR MOTION 4V AP/LAT/ FLEX/EXT Radiology Routine S/P hardware removal 11/19/2022 10:48 AM EDT [facility] Work Phone: End: 2023 Radex spine thoracic 2 views XR THORACIC LIMITED 2V AP/LAT Radiology Routine S/P hardware removal 1 Occurrences starting 10/02/2022 until 2023 [facility] Work Phone: Comment on above: 1 Occurrences starti ng 10/02/2022 until 2023 Radex spine thoracic 2 views XR THORACIC LIMITED 2V AP/LAT Radiology Routine S/P hardware removal 10/08/2022 10:40 AM EDT [facility] Work Phone: Radionuclide gastric emptying study [facility] End: 01-06-2023 TYPE AND SCREEN [facility] Comment on above: One time for 1 Occur rences starting 01/06/2023 until 01/06/2023 XR Chest PA and Lateral [facility] End: 01-06-2023 XR Pelvis and Hip - left Views [facility] Comment on above: One time, now for 1 Occurrences starting 01/06/2023 until 01/06/2023 End: 10-02-2024 XR Thoracic and lumbar spine Views for scoliosis W standing XR SCOLIOSIS PA STAND/LAT 2V Radiology Routine Arthrodesis status History of thoracic spinal fusion Chronic midline thoracic back pain 1 Occurrences starting 09/03/2023 until 10/02/2024 [facility] Comment on above: 1 Occurrences starti ng 09/03/2023 until 10/02/2024 XR Thoracic and lumb ar spine Views for scoliosis W standing XR SCOLIOSIS PA STAND/LAT 2V Radiology Routine Arthrodesis status History of thoracic spinal fusion Chronic midline thoracic back pain 09/08/2023 9:45 AM EDT [facility] Work Phone: [facility] [place] [facility] Immunizations Immunization Date Immunization Notes Care Provider Samy shabazz 10-19-[address] Jerrica Marshall Work Phone: [facility] 10-19-2019 influenza virus vaccine, unspecified formulation Esteban Joel DO Work Phone: [facility] Payers Date Payer Category Payer Medicare [id number] 2023 Self-pay [id number] 2023 Medicare [id number] 2023 Unknown [id number] 2023 Unknown [id number] 2023 Unknown [id number] 2022 Medicaid [id number] 2022 Medicaid [id number] 1960 Unknown [id number] 2.16.8 40.1.828789.3.579.2.598 1959 Unknown [id number] 2.16.8 40.1.607803.3.579.2.598 1959 Unknown [id number] 2.16.8 40.1.588970.3.579.2.598 1959 Unknown [id number] 2.16.8 40.1.859754.3.579.2.598 1959 Unknown [id number] 2.16.8 40.1.856221.3.579.2.598 1959 Unknown [id number] 2.16.8 40.1.602054.3.579.2.598 1959 Unknown [id number] 2.16.8 40.1.032530.3.579.2.598 1959 Unknown [id number] 2.16. 840.1.191961.3.579.2.732 1959 Unknown [id number] 2.16. 840.1.880343.3.579.2.732 1960 Medicaid [id number] Unknown [id number] 2.16.8 40.1.506069.3.579.2.462 Unknown [id number] 2.16.8 40.1.680376.3.579.2.462 Unknown [id number] 2.16.8 40.1.798280.3.579.2.462 Unknown [id number] 2.16.8 40.1.000842.3.579.2.462 Unknown [id number] 2.16.8 40.1.212836.3.579.2.462 Unknown [id number] 2.16.8 40.1.380463.3.579.2.462 Unknown [id number] 2.16.8 40.1.257904.3.579.2.462 Unknown [id number] 2.16.8 40.1.307098.3.579.2.462 Unknown [id number] 2.16.8 40.1.480812.3.579.2.462 Unknown [id number] 2.16.8 40.1.764582.3.579.2.462 Unknown [id number] 2.16.8 40.1.717152.3.579.2.462 Unknown [id number] 2.16.8 40.1.615593.3.579.2.462 Unknown [id number] 2.16.8 40.1.594259.3.579.2.462 Unknown [id number] 2.16.8 40.1.455363.3.579.2.462 Unknown [id number] 2.16.8 40.1.721114.3.579.2.462 Unknown [id number] 2.16.8 40.1.313921.3.579.2.462 Unknown [id number] 2.16.8 40.1.040199.3.579.2.462 Unknown [id number] 2.16.8 40.1.475122.3.579.2.462 Unknown [id number] 2.16.8 40.1.743653.3.579.2.462 Unknown [id number] 2.16.8 40.1.782441.3.579.2.462 Unknown [id number] 2.16.8 40.1.664102.3.579.2.462 Unknown [id number] 2.16.8 40.1.202687.3.579.2.462 Unknown [id number] 2.16.8 40.1.503053.3.579.2.462 Unknown [id number] 2.16.8 40.1.159918.3.579.2.462 Unknown [id number] 2.16.8 40.1.784421.3.579.2.462 Unknown [id number] 2.16.8 40.1.336394.3.579.2.462 Unknown [id number] 2.16.8 40.1.081538.3.579.2.462 Unknown [id number] 2.16.8 40.1.469689.3.579.2.462 Unknown [id number] 2.16.8 40.1.429320.3.579.2.462 Unknown [id number] 2.16.8 40.1.869923.3.579.2.462 Unknown [id number] 2.16.8 40.1.287063.3.579.2.462 Unknown [id number] 2.16.8 40.1.572157.3.579.2.462 Unknown [id number] 2.16.8 40.1.717391.3.579.2.462 Unknown [id number] 2.16.8 40.1.391671.3.579.2.462 Unknown [id number] 2.16.8 40.1.961446.3.579.2.462 Social History Date Type Detail Facility Start: 04-18-2021 End: 05-12-2023 Tobacco smoking status PRIS Unknown if ever smoked [facility] Start: 1960 Sex Assigned At Female [facility] Start: 05-26-2022 End: 10-21-2024 Tobacco smoking status NHIS Ex-smoker [facility] Start: 08-09-1976 End: 08-09-1996 History of tobacco use Current smoker [facility] Start: 08-09-1976 End: 08-09-1996 History of tobacco use Cigarette Smoker [facility] Start: 05-26-2022 End: 03-28-2024 Cigarettes smoked current (pack per day) - Reported 0.5 [facility] Start: 05-26-2022 Tobacco use and exposure Former smokeless tobacco user [facility] Start: 05-26-2022 End: 09-08-2022 Alcohol intake Current drinker of alcohol (finding) [facility] Start: 06-21-2012 Alcohol Comment occasionally [facility] Start: 1960 Sex Assigned At Not on file C [facility] Start: 05-26-2022 End: 03-28-2024 Tobacco use panel [facility] Start: 06-01-2012 Adult Depression Screening Assessment 0 [facility] Start: 10-08-2022 End: 09-27-2024 Alcohol intake Ex-drinker (finding) [facility] Medical Equipment Procedure Code Equipment Code Equipment Origin al Text Equipment Identifier Dates Insertion, vascular access port ([id number]) Vascular port/catheter [id number] FDA Start: 01-04-2024 Substitute Proge nix Plus Demineralized Bone Matrix Bovine Collagen Bone - [id number] Start: 04-15-2017 Connector Kindra 3 Titanium 43-54mm Lucio Multiaxial Cross Thoracolumbar Spine - [id number] Start: 04-15-2017 Lucio Kindra 6mm Ena nium 480mm Spinal Compression - [id number] Start: 04-15-2017 Spacer Avs Navig ator 4d Hollow Peek Tantalum 26x9mm Spinal Radiopaque Tlif - [id number] Start: 04-15-2017 Substitute Proge nix Plus Demineralized Bone Matrix Bovine Collagen Bone - [id number] Start: 04-15-2017 Substitute Proge nix Plus Demineralized Bone Matrix Bovine Collagen Bone - [id number] Start: 04-15-2017 Substitute Proge nix Plus Demineralized Bone Matrix Bovine Collagen Bone - [id number] Start: 04-15-2017 Usi-Dh-I-Kind Im plant - [id number] Start: 04-15-2017 Screw Kindra 3 Ena nium Set Jaz Spine - [id number] Start: 04-15-2017 Goals Date Patient Goal Desired Activity /State Functional Status Date Assessment Result Facility 08-28-2022 Are you deaf, or do you have serious difficulty hearing No 08/28/2022 1:32 PM EDDominique Crouch RN No [facility] 08-28-2022 Are you blind, or do you have serious difficulty seeing, even when wearing glasses No 08/28/2022 1:32 PM Dominique John, BR[place] No [facility] 08-28-2022 Do you have serious difficulty walking or climbing stairs Yes 08/28/2022 1:32 PM Dominique John, [place] Yes [facility] 08-28-2022 Do you have difficul ty dressing or bathing Yes 08/28/2022 1:32 PM Dominique John, [place] Yes [facility] 08-28-2022 Because of a physica l, mental, or emotional condition, do you have difficulty doing errands alone such as visiting a physician's office or shopping Yes 08/28/2022 1:32 PM Dominique John RN Yes [facility] Mental Status Date Assessment Result Facility 11-04-2024 Cognitive function Voice/Name [facility] Work Phone: 09-22-2024 Cognitive function Voice/Name [facility] Work Phone: 02-15-2024 Cognitive function Voice/Name [facility] Work Phone: 08-28-2022 Because of a physica l, mental, or emotional condition, do you have serious difficulty concentrating, remembering, or making decisions Yes 08/28/2022 1:32 PM Dominique John, [place]GET[place] Yes [facility] 07-03-2021 Cognitive function Voice/Name [facility] Work Phone: Clinical Notes 06-21-2012 to 10-06-2024 Valorie Oh APRN.MANAGER NICU - 09/27/2024 11:00 AM EDT Note Date & Type Note Facility 10-06-2024 Radiology Diagnostic study note [facility] Imaging Services [address] [place] [address] Abdomen/Pelvis WITH Contrast MR#: [id number] Acct: [id number] Name: MARY VALIENTE Rep #: [id number] : 1960 F 63 From: Ned Dooley MD PCP: Dr. 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 TECHNIQUE: ABDOMEN/PELVIS WITH CONTRAST Coronal and Sagittal reconstruction series were provided. CONTRAST: Isovue 370 VOLUME: 75 mL One or more dose reduction techniques were used (e.g., Automated exposure control, adjustment of the mA and/or kV according to patient size, use of iterative reconstruction technique. RADIATION DOSE SUMMARY: CTDlvol: 8 mGy DLP: 277.07 mGycm COMPARISON: Prior study dated March 30, 2024. FINDINGS: Lung bases: Mild dependent atelectasis a dual-chamber pacemaker is seen. Liver: Normal size. No mass. Gallbladder: Surgically absent. Spleen: Normal size. Pancreas: Normal size without evidence of mass surrounding inflammation or ductal dilation. Adrenals: Unremarkable Kidneys: Normal renal sizes. No hydronephrosis. Bladder: Unremarkable Reproductive Organs: Prior hysterectomy. Adnexal regions are unremarkable. Bowel: Unremarkable Appendix: The appendix is not identified. There is no inflammatory process identified in the right lower quadrant to suggest appendicitis. Lymph nodes: Unremarkable. Vasculature: Mild diffuse atherosclerotic calcifications are noted. Peritoneum / Retroperitoneum: Stable 2.4 cm x 1.2 cm hypodense nodule lateral tothe inferior vena cava as seen on axial image number 37 and coronal image number 48. This may represent a necrotic lymph node. Bones: Status post multilevel intrapedicular screw and lucio fixation of the visualized lower thoracic and lumbar spine. CT/Abdomen/Pelvis WITH Contrast IMPRESSION: Stable examination. Reading Location: [id number] CC: NIMO Brown; Dr. Jerrica Marshall MD ~ Parking Enforcement Manager: Signed [facility] 09-27-2024 History of Present illness Narrative Images from the original note were not included. ENDOCRINE REFERRAL Osteoporosis and Metabolic Bone Disease Follow up Visit [facility] - [place] [address], [address] [place] [address] SUBJECTIVE: LAST SEEN: 03/28/2024 INITIAL EVALUATION: 09/28/2023 Diagnosed with osteopenia/osteoporosis 09/05/2021 Patient seen at the request of / referral from: Rosio Butterfield I, MD [facility] CHIEF COMPLAINT: Patient presents for osteopenia/osteoporosis management History of Present Illness Mary Valiente is a 62 year old female who presents in referral for my opinion regarding evaluation and management of osteoporosis. Patient was referred by Rosio Butterfield I, MD [facility]. Patient stated that she has screws loose in her back and she has a lot of pain because of that. She is not felling good at all. [facility]. Patient is on treatment with Prolia injection for the past 1.5 years started by her PCP. She had 3 doses so far, tolerates medication well. Last dose 08/10/2023. Never had any fracture in the past. She has a new compression fracture on C7 - Multiple thoracolumbar spinal fusions. Non hodgkin's lymphoma. [facility] PHONE NUMBER: [phone] FOLLOW UP VISIT: 09/27/2024 Patient seen in follow up today Mary Valiente 63 year old who presents today for osteoporosis management. She is currently not on any treatment for osteoporosis. She had an endoscopy done last week and she was dx with hiatal hernia, and multiple polyps. She has difficulty eating and drinking. She lost 7 lbs in 3 months. She is remission for Non hodgkin's lymphoma. Her daughter was recently dx with stage 4 ovarian cancer with metastasis, and she is very affected. Denies recent falls or fractures. She has no complains today. Upcoming dental procedures planned? NO Participating in weight bearing exercise? NO Last Fall: N/A Ambulatory assistance: N/A CURRENT MEDICATION FOR OSTEOPENIA/OSTEOPOROSIS: Takes calcium? YES - TUMS 750 MG Takes Vit D? YES - Cholecalciferol, Vitamin D3, 2,000 unit cap Takes Supplements? YES - cyanocobalamin 1,000 mcg 1 Tab daily - Ascorbic Acid (VITAMIN C) 100 mg tablet daily - Vitamin E, dl, acetate, (VITAMIN E) 400 unit 1 capsule daily OSTEOPENIA/OSTEOPOROSIS TREATMENT HISTORY: 08/2022 Started PROLIA - # 3 - 08/10/2023 BONE DENSITY: NEXT DXA DUE: 11/13/2025 11/13/2023 DXA: AXIAL SKELETON [facility] IMPRESSION: THE LOWEST T-SCORE IS -3.6 IN THE LEFT FOREARM 1) DIAGNOSIS (based on BMD alone): OSTEOPOROSIS RESULTS: Right Femoral Neck: 0.566 g/cm2, T-score -2.5, Z-score -1.1 Right Total Hip: 0.656 g/cm2, T-score -2.3, Z-score -1.2 Left Femoral Neck: 0.533 g/cm2, T-score -2.7, Z-score -1.2 Left Total Hip: 0.660 g/cm2, T-score -2.3, Z-score -1.1 Left Forearm, Distal 1/3 of Radius: 0.475 g/cm2, T-score -3.6, Z-score -2.1 FRAX 10 YEAR PROBABILITY OF FRACTURE: Major osteoporotic: 13% Hip Fracture: 2.6% 09/05/2021 DXA: AXIAL SKELETON [facility] MAJOR RISK FACTORS FOR OSTEOPOROSIS: High risk condition: Yes - Age of menopause: partial Hysterectomy - 52 y.o - Loss of height: 2 in - Fracture(s): C7 (09/2023 CT) - Former quit 40 + years ago - non hodgkin's lymphoma 11/2023 in remission High risk medications: Yes see MAR - Chemo 12/2023 for 6 months done 05/2024 Review of Systems GENERAL: Weight loss HEENT: No changes in hearing or vision, no nose bleeds or other nasal problems, Head Positive for headache NECK: Negative for lumps, goiter, pain and significant neck swelling RESPIRATORY: Negative for cough, hemoptysis, wheezing, COPD, dyspnea or shortness of breath CARDIOVASCULAR: Negative for chest pain, leg swelling, hypertension, CHF or palpitations GI: No nausea, vomiting, or diarrhea : No history of dysuria, frequency or incontinence COMMUNICATIONS TECH: Negative for abnormal vaginal bleeding, abnormal vaginal discharge MUSCULOSKELETAL: back pain SKIN: Negative for lesions, rash, and itching PSYCH: Negative for sleep disturbance, mood disorder and recent psychosocial stressors HEMATOLOGY/LYMPHOLOGY: Negative for prolonged bleeding, bruising easily or swollen nodes ENDOCRINE: Negative for cold or heat intolerance, polyuria, polydipsia and goiter NEURO: No history of headaches, syncope, paralysis, seizures or tremors MEDICAL HISTORY: PAST MEDICAL HISTORY Diagnosis Date De Quervain's disease (radial styloid tenosynovitis) 06/21/2012 Osteoporosis SURGICAL HISTORY: PAST SURGICAL HISTORY Procedure Laterality Date BACK SURGERY HX 08/26/2022 Incision and debridement onset of thoracic wounds, removal of hardware LAPAROSCOPY SURG CHOLECYSTECTOMY 04/05/2009 Cholecystectomy, lap NEUROPLASTY &/TRANSPOS MEDIAN NRV CARPAL TUNNE 06/09/2010 Carpal tunnel decomp, right NEUROPLASTY &/TRANSPOS MEDIAN NRV CARPAL TUNNE 08/06/2012 Carpal tunnel decomp left and DeQuervain's release VAGINAL HYSTERECTOMY UTERUS 250 GM/< 03/12/2001 Hysterectomy, vaginal FAMILY HISTORY: FAMILY HISTORY Problem Relation Age of Onset Breast Cancer Father other (brain tumor) Father Breast Cancer Paternal Grandmother Breast Cancer Paternal Aunt Breast Cancer Paternal Aunt SOCIAL HISTORY: SOCIAL HISTORY[1] CURRENT MEDICATIOS: Current Outpatient Medications on File Prior to Visit Medication Sig calcium Carbonate 300 mg, 750mg, (TUMS) 300 mg (750 mg) chewable tablet Take 1 tablet by mouth once daily. gabapentin (NEURONTIN) 300 mg capsule Take 300 mg by mouth two times a day. (Patient not taking: Reported on 03/28/2024) traZODone (DESYREL) 50 mg tablet sennosides (LAXATIVE ORAL) Take by mouth. oxyCODONE-acetaminophen (PERCOCET) 5-325 mg tablet baclofen 10 mg tablet sulfamethoxazole-trimethoprim (BACTRIM DS) 800-160 mg per tablet Take 1 tablet by mouth once daily. Ascorbic Acid (VITAMIN C) 100 mg tablet Take 100 mg by mouth once daily. Vitamin E, dl, acetate, (VITAMIN E) 400 unit capsule Take 400 Units by mouth once daily. lysine 500 mg tab 500 mg. mirtazapine (REMERON) 30 mg tablet Take 30 mg by mouth daily at bedtime. cyanocobalamin 1,000 mcg Tab Take 1 tablet by mouth once daily. Cholecalciferol, Vitamin D3, 5,000 unit cap Take 2,000 Units by mouth once daily. No current facility-administered medications on file prior to visit. IMAGING: N/A PREVIOUS LABORATORY RESULTS: N/A OBJECTIVE: Physical examination BP 129/78 (BP Site: Right Arm, BP Position: Sitting, BP Cuff Size: Small Adult) Pulse 89 Ht 144.8 cm (4' 9) Wt 44.4 kg (97 lb 12.8 oz) SpO2 99% BMI 21.16 kg/m GENERAL: Well appearing, alert, in no acute distress, well-hydrated, well nourished. SKIN: Skin color, texture, turgor normal, no suspicious rashes or lesions EYES: Anicteric sclera. Pupils are equally round and reactive to light. Extraocular movements are intact. MOUTH: No oral ulcers, dentition good NECK: Supple, no adenopathy; thyroid symmetric, normal size, no bruits CARDIOVASCULAR: RRR without murmur, gallop, or rubs. No ectopy, No carotid bruits LUNGS: Lungs clear to auscultation. No wheezing, rhonchi, rales. ABDOMEN: Soft and non-tender with active bowel sounds. MUSCULOSKELETAL : Negative findings: ROM of all joints is normal. Positive findings: R scapula > L scapula, numbness over the cervical and thoracic area of the spine - Back: mild pain to palpation in the LS spine midline, tender over iliac crest bilateral - Shoulder height position: anterior - Pelvic Tilt: posterior - Dorsal kyphosis: moderate and appears stable - Lumbar curve:present - Scoliosis: Present - Lumbar - Movement: normal EXTREMITIES: No deformities, edema, skin discoloration, clubbing or cyanosis. Good capillary refill. NEUROLOGIC: Gait normal. Reflexes normal and symmetric. Sensation grossly intact. ASSESSMENT/PLAN: In summary, Ms. Valiente is a 63 year old female who presents for evaluation and discussion of treatment options for low bone density. 1. Age-related osteoporosis without current pathological fracture - ICD9: 733.01, ICD10: M81.0 (primary diagnosis) 2. Low bone mass - ICD9: 733.90, ICD10: M85.80 3. Osteopenia of multiple sites - ICD9: 733.90, ICD10: M85.89 - Reviewed the need for Calcium and Vitamin D supplements and weight bearing exercise as tolerated - Patient was advised to achieve a total of 1200 mg/day of calcium intake according to NOF, and at least 3 portions of dairy products. - Perform weight bearing exercises; moderate intensity exercise, at least 30 mins/session, 5x/week - Reviewed bone density and available labs. - The patient has osteoporosis. - No treatment at this time - Discussed diagnosis. - Treatment indicated : Yes - Best option of treatment in this case: anabolic/antiresorptive - We discuss risk, benefits, side effects and administrations of treatment options available for fracture prevention with Anabolic agents teriparatide (Forteo), abaloparatide (Tymos) and anti-remodeling medicines romosozumab (Evenity)/ antiresorptive Denosumab (Prolia) medication. - After discussing the available options, the patient would like to start Evenity or Prolia . - Patient stated that she will continue the treatment under her PCP recommendations due to a long distance to drive for the appointments - Repeat DXA in 2025 - Fall precautions advised 4. Vitamin D deficiency - ICD9: 268.9, ICD10: E55.9 - Continue with Vit D3, 2000 units per day. - Take vit d with the largest meal of the day 5. Non-Hodgkin lymphoma in adult (HCC) - ICD9: 202.80, ICD10: C85.90 - completed 6 months of chemo - she is in remission Answered all questions. Patient verbalized understanding and agreed with of all the above instructions I thank you for the opportunity to participate in the care of Mary Valiente Please do not hesitate to contact me if you have further concerns or questions. FOLLOW UP: if needed NOTE: Patient will f/u with her PCP for DXA and treatment - this office is to far for her to drive. Valorie Oh APRN.MANAGER NICU Dept of Endocrinology September 27, 2024 Any part of this document that has been added/copied & pasted from other documents has been reviewed for accuracy and updated as appropriate at the time of the patient encounter [1] Social History Tobacco Use Smoking status: Former Current packs/day: 0.00 Average packs/day: 0.5 packs/day for 20.0 years (10.0 ttl pk-yrs) Types: Cigarettes Start date: 08/09/1976 Quit date: 08/09/1996 Years since quittin.1 Smokeless tobacco: Former Substance Use Topics Alcohol use: Not Currently Comment: 2 drinks per month Drug use: No documented in this encounter [facility] 09-22-2024 Consult note Note Date/Time September 22, 2024 10:12am [facility] Medical Records Department [address] [place] [address] Pre-Anesthesia Evaluation 09/22/24 1003 MR#: [id number] Acct: [id number] Name: MARY VALIENTE Rep #:[id number] : 1960 63 From: Anjel Olmos MD PCP: Dr. Jerrica Marshall MD Status:R EG [facility] [place] [facility] Race: C Location: [place] [address] ASA Classification* ASA Classification ASA Classification: 3 Assessment & Plan Anesthesia* Anesthesia Assessment Anesthesia Assessment: Discussed sedation and/or anesthesia options, risks, benefits, and alternatives with patient/parents/legal guardian/POA. Questions invited. The patient/parents/legal guardian/POA seems to understand and agrees to proceedwith anesthesia plan. Reviewed the physical assessment, medical history, allergy history and patient home medications list prior to surgery/procedure/anesthetic and documented any changes. Performed airway and anesthesia risk assessments. Anesthesia Type Anesthesia Type: MAC History Source History Obtained from:: Patient and Chart Anesthesia Focused Assessment* Temperature: 97.8 F Pulse Rate: 85 Blood Pressure: 107/79 Respiratory Rate: 18 Pulse Ox: 100 Oxygen Delivery Method: Room Air Airway Assessment Mouth opens: 2 cm Mallampati Score: IV Teeth Condition: Caps/Crowns (Patient has several crowns. They are all tight.) Neck Range of motion (ROM): Limited ROM (Severe Restriction) Comment: Short thyromental distance. Labs Anesthesia Preop lab: CBC WBC 3.2 K/mm3 (4.4-11.0) L 06/29/24 09:31 06/29/24 RBC 3.32 M/mm3 (4.2-5.4) L 06/29/24 09:06/29/24 Hgb 11.6 g/dL (12.0-15.0) L 06/29/24 09: 5 Hct 32.7 % (37-47) L 06/29/24 09:31 06/29/24 Plt Count 163 K/mm3 (150-450) 06/29/24 09:31 06/29/24 CHEMISTRY Potassium 4.2 mmol/L (3.3-5.1) 06/29/24 09:06/29/24 Sodium 134 mmol/L (133-145) 06/29/24 09:06/29/24 Magnesium 2.0 mg/dL (1.6-2.6) 01/26/24 08:01/26/24 Phosphorus 3.3 mg/dL (2.5-4.9) 01/26/24 08:28 01/26/24 BUN 13 mg/dL (4-19) 06/29/24 09:06/29/24 Creatinine 0.72 mg/dL (0.70-1.20) 06/29/24 09:06/29/24 Glucose 96 mg/dL (70-99) 06/29/24 09:06/29/24 POC Glucose 89 mg/dL (70-110) 01/08/16 15:10 01/08/16 TSH 0.90 uIU/mL (0.358-3.74) 11/06/20 15:15 COAG PT 13.9 SECONDS (11.7-14.9) 10/18/20 11:15 Pre-Assessment Diagnosis/Proposed Procedure Planned Operative Procedure(s): EGD Anesthesia History 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 When Was Last Pacemaker Check QUESTION #4 FULL TEXT: You/Your Family Experience fever (hyperthermia) with Anesthesia Last Oral Intake Last Oral intake: Last Oral Intake NPO since Meds taken in AM with sips of water? Meds patient instructed to take am of surgery Any additional information?: Yes NPO since: 00:00 Meds taken in AM with sips of water?: Yes Meds patient instructed to take am of surgery: Patient had half of aPercocet. 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 Female Yes 09/21/24 11:58 HX of Motion Sickness No 09/21/24 11:58 HX of N/V After Surgery No 09/21/24 11:58 Non-Smoker Yes 09/21/24 11:58 Duration of Surgery greater No 09/21/24 11:58 than 60 minutes Number of Risk Factors 2 09/21/24 11:58 PONV Score Moderate Risk 09/21/24 11:58 Height & Weight Height & Weight: Anesthesia: Height & Weight Height 4 ft 10 in 09/22/24 09:38 Weight: 43.2 kg 09/22/24 09:38 Body Mass Index (BMI) 19.9 09/22/24 09:38 Respiratory Assessment Respiratory Assessment - dubbing machine operator: Respiratory Tract Infection Hx - dubbing machine operator Hx Respiratory Tract Infection No 09/21/24 11:58 STOP Sleep Apnea STOP Sleep Apnea - dubbing machine operator: STOP Sleep Apnea - dubbing machine operator Hx Hypertension No 09/21/24 11:58 Hx Sleep Apnea No 09/21/24 11:58 CPAP BIPAP Do you snore loudly (louder No 09/21/24 11:58 than talking or can be heard Do you often feel tired/ No 09/21/24 11:58 fatigued/ sleepy during daytime? Has anyone observed you stop No 09/21/24 11:58 breathing during sleep? STOP Results Negative 09/21/24 11:58 QUESTION #5 FULL TEXT : Do you snore loudly (louder than talking or can be heard through closed doors)? 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 Specify any problems Hx of Preganancy in last 3 No 09/21/24 11:58 Months Nurse Filling Out Transfusion VCHRISTIN 09/21/24 11:58 & Questions: Date: 09/21/24 09/21/24 11:58 Time: 11:59 09/21/24 11:58 Patient unable to answer at this time (ie. 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 Hx Now No 09/21/24 11:58 Gestational Age (in weeks): EDC: Hx Hx Para Hx Section SAB No 09/21/24 11:58 Active Medications Active Medications: Current Medications Generic Name Dose Route Start Last Admin Trade Name Freq PRN Reason Stop Dose Admin Lactated Ringer's 1,000 mls @ 15 mls/hr 09/22/24 09:30 09/22/24 09:47 IV 15 mls/hr .Q48H JACKSON Administration PFSH Medical History Oral candidiasis Encounter for education MRSA (methicillin resistant staph aureus) culture positive Cancer Depression Osteoarthritis High cholesterol Chronic pain B-cell non-Hodgkin lymphoma Anxiety and depression Nausea Constipation Abdominal discomfort Swallowing difficulty Hyperlipidemia Localized skin mass, lump, or swelling Encounter for vitamin deficiency screening Screening for cardiovascular condition Lymphadenopathy, inguinal Nonhealing surgical wound Medication side effects Osteoporosis GERD (gastroesophageal reflux disease) DDD (degenerative disc disease) Wears glasses Arthritis Low iron Easy bruising Poor appetite Epigastric abdominal pain Former smoker Leg cramps Neuropathy Chronic back pain Anemia Occluded PICC line Tachycardia Tobacco dependence in remission Home Medications ?Medication ?Instructions ?Recorded ?Last Taken ?Type ascorbic acid (vitamin C) 500 mg 500 mg PO DAILY vitam in 10/14/20 09/22/24 History tablet vitamin E 268 mg (400 unit) capsule 400 unit PO DAILY vitamin 10/14/20 09/22/24 History lysine 500 mg capsule 250 mg PO DAILY 07/02/21 History oxycodone-acetaminophen 5 mg-325 1 tab PO BID PRN pain 01/26/23 09/22/24 History mg tablet (Percocet) cholecalciferol (vitamin D3) 25 50 mcg PO DAILY vitami n 12/11/23 09/22/24 History mcg (1,000 unit) tablet docusate sodium 100 mg capsule 100 mg PO QDAY 12/11/23 01/03/24 History lidocaine-prilocaine 2.5 %-2.5 % 1 applic topical ONCE PRN port 01/04/24 Unknown Rx topical cream access 30 days #30 grams ondansetron 4 mg disintegrating 4 mg PO Q6H PRN nausea and 02/15/24 Unknown Rx tablet vomiting #60 tabs tizanidine 4 mg capsule 4 mg PO QHS PRN muscle spast icity 08/22/24 Unknown History trazodone 100 mg tablet 100 mg PO QHS PRN sleep #90 tabs 08/22/24 Unknown Rx Allergy/AdvReac Type Severity Reaction Status Date / Time codeine AdvReac Nausea Verified 09/22/24 09:37 hydrocodone (From Vicodin) AdvReac Nausea Verified 09/22/24 09:37 Surgical History Hx of surgical procedure History of colonoscopy History of esophagogastroduodenoscopy (EGD) History of carpal tunnel surgery of left wrist History of back surgery Carpal tunnel syndrome Hx of hysterectomy History of cholecystectomy H/O spinal fusion Social History household members: family Smoking Status: Former smoker alcohol intake: never substance use type: marijuana caffeine: Yes seatbelt use: always do you feel safe at home: Yes additional social history: Jaydon Cabral on disability Review of Systems (Anesthesia) ROS Narrative System reviewed and no additional complaints, except as documented. 09/22/24 1012 <Electronically signed by Anjel nava MD> Date _ Anjel Olmos MD Cosigner Signature: Date CC: ~ Signed [facility] Work Phone: 1(430) 292-636308-14-2025 History and physical note Author Skyla Schuster [facility] Note Date/Time September 22, 2024 10 :07am [facility] Medical Records Department [address] [place] [address] History & Physical Exam 09/22/24 1006 MR#: [id number] Acct: [id number] Name: MARY VALIENTE Rep #:[id number] : 1960 63 From: Skyla Ritchie PCP: Dr. Jerrica Marshall MD Status:R [facility] Location: [place] [address] History and Physical Date of Admission: 09/22/24 Date of Service: 09/14/24 MR#: [id number] Acct: [id number] Name: MARY VALIENTE Rep #: [id number] : 1960 Provider: Dr. Skyla Schuster MD Age/Sex: 63/F Location: [facility] Status: Signed Intake Vital Signs 08/22/2508:59 09/14/2513:42 Height 4 ft 10 in 4 ft 10 in Weight: 98 lb 96 lb BMI 20.5 20.0 BP 100/64 121/78 H Blood Pressure Location Lt brachial Rt brachial Position Sitting Sitting Respiration 16 18 Pulse 113 H Pulse Source Monitor Temp 98.2 F Temp Source Temporal Pulse Oximetry (%) 98 Oxygen Delivery Method room air Intake Visit Reasons: WEIGHT LOSS/ EPIGASTRIC PAIN Chief Complaint: wt loss and epigastric pain Retail Field Representative Required: No Is patient in pain?: Yes (epigastric/upper abd ) Pain scale (1-10): 10 Allergies codeine Adverse Reaction (Verified 09/14/24 14:43) Nauseahydrocodone (From Vicodin) Adverse Reaction (Verified 09/14/24 14:43) Nausea Medications ?Medication ?Instructions ?Recorded ?Confirmed ?Type ascorbic acid (vitamin C) 500 mg 500 mg PO DAILY vitamin 10/14/20 5 History tablet cyanocobalamin (vitamin B-12) 1,000 mcg PO DAILY vitamin 10/14/2008/03 History 1,000 mcg tablet vitamin E 268 mg (400 unit) capsule 400 unit PO DAILY vitamin 10/14/2009/14 History lysine 500 mg capsule 250 mg PO DAILY 07/02/21 09/14/24 Histor y oxycodone-acetaminophen 5 mg-325 1 tab PO BID PRN pain 01/26/23 09/14/24 History mg tablet (Percocet) cholecalciferol (vitamin D3) 25 50 mcg PO DAILY vitamin 12/11/23 5 History mcg (1,000 unit) tablet docusate sodium 100 mg capsule 100 mg PO QDAY 12/11/23 09/14/24 History lidocaine-prilocaine 2.5 %-2.5 % 1 applic topical ONCE PRN port 01/04/24 09/14/24 Rx topical cream access 30 days #30 grams sulfamethoxazole 800 1 tab PO .COMPLEX #30 tabs 01/04/2408/03 Rx mg-trimethoprim 160 mg tablet (Bactrim DS) duloxetine 30 mg capsule,delayed 30 mg PO QHS #90 caps 02/15/24 09/14/24 Rx release ondansetron 4 mg disintegrating 4 mg PO Q6H PRN nausea and 02/15/2408/03 Rx tablet vomiting #60 tabs acyclovir 400 mg tablet 400 mg PO BID #60 tabs 03/08/24 09/14/24 Rx nystatin 100,000 unit/mL oral 5 ml PO TID #473 mL 03/08/24 09/14/24 Rx suspension denosumab 60 mg/mL subcutaneous 60 mg subcut [id number] #1 mL 06/28/2408/03 Rx syringe (Prolia) tizanidine 4 mg capsule 4 mg PO QHS PRN 08/22/24 09/14/24 Histor y trazodone 100 mg tablet 100 mg PO QHS PRN sleep #90 tabs 5 09/14/24 Rx pantoprazole 20 mg tablet,delayed 20 mg PO QDAY #30 tabs 08/26/24 09/14/24 Rx release Have you fallen in the past year?: Yes PFSH Medical History Oral candidiasis Encounter for education MRSA (methicillin resistant staph aureus) culture positive Cancer Depression Osteoarthritis High cholesterol Chronic pain B-cell non-Hodgkin lymphoma Anxiety and depression Nausea Constipation Abdominal discomfort Swallowing difficulty Hyperlipidemia Localized skin mass, lump, or swelling Encounter for vitamin deficiency screening Screening for cardiovascular condition Lymphadenopathy, inguinal Nonhealing surgical wound Medication side effects Osteoporosis GERD (gastroesophageal reflux disease) DDD (degenerative disc disease) Wears glasses Arthritis Low iron Easy bruising Poor appetite Epigastric abdominal pain Former smoker Leg cramps Neuropathy Chronic back pain Anemia Occluded PICC line Tachycardia Tobacco dependence in remission Surgical History History of colonoscopy History of esophagogastroduodenoscopy (EGD) History of carpal tunnel surgery of left wrist History of back surgery Carpal tunnel syndrome Hx of hysterectomy History of cholecystectomy H/O spinal fusion Social History household members: family Smoking Status: Former smoker alcohol intake: never substance use type: marijuana caffeine: Yes seatbelt use: always do you feel safe at home: Yes additional social history: Sumeet- Both on disability HPI HPI HPI: Patient is a 63-year-old female who is known to me for a history of dysphagia and more recently was seen by me in December 2023 for concerns around inguinal lymphadenopathy that ultimately led to a diagnosis of B-cell lymphoma. She is referred today from gastroenterology due to chief complaint of epigastric abdominal pain over the last 2 months and has resulted in significant weight loss. She states she underwent her last treatment for her cancer approximately 2 months ago and her symptoms began shortly after concluding treatment. She describes an epigastric abdominal pain that persists in a bandlike distribution across her upper abdomen with a sharp and aching character. She shares thisis distinct from typical heartburn or reflux type pains. She also notes that itis constant and nothing seems to make it better or worse. She states she has tried Tums without relief and more recently was prescribed pantoprazole by gastroenterology but again did not notice any relief of her symptoms. She confirms some associated nausea but denies any associated bloating. She also denies any coughing up of blood and reports that her bowel movements are occurring once daily. She states there may be somewhat softer than normal but otherwise denies any presence of bloody or dark stools. Patient completed gastric emptying study yesterday as part of gastroenterology'sordered workup and this showed delayed gastric emptying. Her last EGD was performed by me on 08/25/2023 and found evidence of gastritis, hiatal hernia, andsome esophageal plaques. She is pending repeat CT imaging of the abdomen pelvison 09/21/2024. ROS General General: Yes weight change; No appetite, fatigue, colon cancer, breast cancer or weakness HEENT HEENT: Yes difficulty swallowing; No eye injury, eye surgery, swollen glands or hoarseness Endo Endocrine: No thyroid disease, diabetes mellitus, thyroid cancer, Hair loss, heat intolerance or cold intolerance Skin Skin: No rash or changing moles Breast Breast: No left breast lump, right breast lump, nipple discharge, breast pain, abnormal mammogram, abnormal US or breast enlargement Musc Musculoskeletal: Yes back problems and arthritis; No rheumatoid arthritis, gout or joint pain Cardio Cardiovascular: No murmur, pacemaker, heart disease, atrial fibrillation, high blood pressure, heart attack, heart stent, palpitations, shortness of breath with exertion or chest pain Psych Psychiatric: No depression, anxiety or hearing voices Resp Respiratory: No shortness of breath, Yes sleep apnea, No cough, No COPD, No asthma, No emphysema and No wheezing Gastro Gastrointestinal: Yes abdominal pain, Yes nausea or vomiting, No diarrhea, No constipation, No blood in stool, No acid reflux, No hemorrhoids, No ulcers, No gallbladder problem and No black,tarry stools Pepe Hematologic: No blood thinners, No blood disorders, No bleeding, No anemia and No blood clots Neuro Neurologic: No system reviewed and no additional complaints, except as documented, No as per HPI, No abnormal gait, No abnormal hearing, No abnormal movements, No abnormal speech, No behavioral changes, No burning sensations, No confusion, No convulsions, No disequilibrium, No dizziness, No localized weakness, No frequent falls, No headache(s), No lack of coordination, No loss ofvision, No memory loss, No numbness, No other visual disturbances, No radicular pain, No restless legs, No sensory deficit, No syncope, No tingling, No tremor(s), No weakness and No other Exam Const General: cooperative and anxious Orientation: alert, awake and oriented x3 Other: Somewhat shaky Resp Effort & Inspection: normal respiratory effort GI Other: Thin, nondistended, chronic scars without evidence of herniation, soft, markedlytender to palpation across the epigastrium with much less tenderness does not move laterally to the right upper or left upper abdominal quadrants. No true peritoneal signs. Assessment and Plan Assessment and Plan (1) Epigastric pain: Status: Acute Comment: Patient is 63-year-old female who makes consultation related to severe, refractory epigastric discomfort. She was originally referred to gastroenterology, however, she stated she wished to undergo EGD with me given our history together. She presents today for that purpose. However, she completed gastric emptying study yesterday for gastroenterology and is pending repeat CT imaging of the abdomen pelvis. Gastric emptying study was notable for some delayed gastric emptying. Patient shares associated weight loss with pain but does clarify that food does not seem to make it worse. Her abdominal exam shows sometenderness of the epigastrium, but this does not seem to be consistent with peritoneal inflammation. Based on patient's descriptions, I am most suspicious for peptic ulcer disease versus gastritis. Temp orally, this appears to be related to patient's last chemo administration. Will plan to seek input from oncology as to any known gastrointestinal effects from that treatment. For the interim have recommended to patient that she plan to return to pantoprazole (patient states that she has gone off this medication but does not know why). Ialso encouraged her to consider cutting out any caffeine given its inhibitory effects on the lower esophageal sphincter. I considered prescribing her a course of Reglan to act as both an antiemetic and a prokinetic, however, patientrepeatedly complains about the number of medication she is presently prescribed and I am concerned about changing too many variables at once. Her history is supportive of a diagnosis of delayed gastric emptying, but I remain cautious about taking too much from this study given patient's acute symptoms and risk for a skewed result. Will plan for urgent endoscopic evaluation and further treatment plans pending that evaluation and communication with oncology and gastroenterology. Plan: ? Patient instructed to resume pantoprazole first thing in the morning absent any food or drink ? Patient encouraged to abstain from caffeine ? Plan for diagnostic EGD at first availability (2) Weight loss, non-intentional: Status: Acute I have examined the patient and the H&P has been reviewed. There are no clinicalchanges since date of exam. Patient reports ongoing abdominal discomfort. Abdominal exam remains consistent with mild tenderness of the epigastrium on palpation. Will proceed to endoscopy suite for diagnostic EGD. 09/22/24 1007 <Electronically signed by Skyla Schuster MD> Cosigner Signature (if applicable): CC: Dr. Jerrica Marshall MD; Dr. Skyla Schuster MD~ Signed [facility] Work Phone: 1(184) 750-182108-14-2025 Consult note [facility] Medical Records Department [address] [place] [address] Anesthesia Postop Eval I 09/22/24 1059 MR#: [id number] Acct: [id number] Name: MARY VALIENTE Rep #:[id number] : 1960 63 From: Zachariah Patel PCP: Dr. Jerrica Marshall MD Status:R [facility] Y Race: C Location: [place] [address] Anesthesia: Postop Eval I Current Vital Signs Temperature: 97.8 F Pulse Rate: 77 Blood Pressure: 107/69 Respiratory Rate: 16 Pulse Ox: 100 Oxygen Delivery Method: Room Air Assessment Airway patent: Yes Spontaneous unlabored respirations: Yes Mental status: Asleep nausea: No Vomiting: No Anesthesia Complication: Yes Anesthesia Complication Comment:: hypotension, tx w/phenylephrine Fluid Hydration Crystalloid volume administer (ml): 200 Total IV fluid infused: 200 Progress Note Anesthesia document: Postop Eval 1 completed: Yes 09/22/24 1100 > Date _ Zachariah Marie Signature: Date CC: ~ Signed [facility]08-14-2025 Procedure note [facility] Medical Records Department [address] [place] [address] EGD Report MR#: [id number] Acct: [id number] Name: MARY VALIENTE Rep #:[id number] : 1960 63 From: Skyla Ritchie PCP: Dr. Jerrica Marshall MD Status:R [facility] Patient Name: Mary Valiente Procedure Date: 09/22/2024 10:05 AM Date of : 1960 Age: 63 Procedure: Upper GI endoscopy Indications: Epigastric abdominal pain, Weight loss Providers: Skyla Schuster MD Referring MD: Jerrica Marshall MD Medicines: See the Anesthesia note for documentation of the administered medications Patient Profile: Refer to note in patient chart for documentation of history and physical. Patient has symptoms of acute epigastric abdominal pain. Complications: No immediate complications. Estimated blood loss: Minimal. Procedure: Pre-Anesthesia Assessment: - The heart rate, respiratory rate, oxygen saturations, blood pressure, adequacy of pulmonary ventilation, and response to care were monitored throughout the procedure. After obtaining informed consent, the endoscope was passed under direct vision. Throughout the procedure, the patient's blood pressure, pulse, and oxygen saturations were monitored continuously. The gastroscope was introduced through the mouth, and advanced to the second part of duodenum. The upper GI endoscopy was accomplished without difficulty. The patient tolerated the procedure well. Scope In: 10:27:05 AM Scope Out: 10:48:04 AM Total Procedure Duration Time 0 hours 20 minutes 59 seconds Findings: The duodenal bulb, first portion of the duodenum and second portion of the duodenum were normal. No biopsies or other specimens were collected for this exam. Striped moderately erythematous mucosa with stigmata of recent bleeding was found in the gastric antrum. Biopsies were taken with a cold forceps for histology. Estimated blood loss was minimal. Localized moderate inflammation characterized by adherent blood, congestion (edema), erythema and linear erosions was found in the gastric antrum. Biopsies were taken with a cold forceps for histology. Estimated blood loss: 2 mL requiring treatment with coagulation. A small hiatal hernia was present. No biopsies or other specimens were collected for this exam. The Z-line was irregular and was found 38 cm from the incisors. Biopsies were taken with a cold forceps for histology. Estimated blood loss was minimal. The esophagus was normal. Impression: - Normal duodenal bulb, first portion of the duodenum and second portion of the duodenum. No specimens collected. - Erythematous mucosa in the antrum. Biopsied. - Gastritis. Biopsied. - Small hiatal hernia. No specimens collected. - Z-line irregular, 38 cm from the incisors. Biopsied. - Normal esophagus. Recommendation: - Discharge patient to home (via wheelchair). - Resume previous diet today. - No aspirin, ibuprofen, naproxen, or other non-steroidal anti-inflammatory drugs for 2 days after biopsy. - Use sucralfate suspension 1 gram PO BID today. - Await pathology results. - Telephone my office for pathology results in 1 week. Procedure Code(s): --- Professional --- 23044, Esophagogastroduodenoscopy, flexible, transoral; with biopsy, single or multiple Diagnosis Code(s): --- Professional --- K31.89, Other diseases of stomach and duodenum K29.70, Gastritis, unspecified, without bleeding K44.9, Diaphragmatic hernia without obstruction or gangrene K22.89, Other specified disease of esophagus R10.13, Epigastric pain R63.4, Abnormal weight loss CPT copyright 2021 [employer]. All rights reserved. The codes documented in this report are preliminary and upon repack room worker review may be revised to meet current compliance requirements. Skyla Schuster MD 09/22/2024 10:56:44 AM This report has been signed electronically. Number of Addenda: 0 Note Initiated On: 09/22/2024 10:05 AM 09/22/24 1057 Date _ Skyla Schuster MD Cosigner Signature: Date (if indicated) CC: Dr. Jerrica Marshall MD; Dr. Skyla Schuster MD ~ Date Dictated: 09/22/24 1005 Date Transcribed: Parking Enforcement Manager: ADAM Signed [facility]08-14-2025 Procedure note [facility] Medical Records Department [address] [place] [address] Provation Physician Letter MR#: [id number] Acct: [id number] Name: MARY VALIENTE Rep #:[id number] : 1960 63 From: Skyla Ritchie PCP: Dr. Jerrica Marshall MD Status:R [facility] 09/22/2024 Jerrica Marshall MD [address] [place] [address] [place] [address] Re : Upper GI endoscopy procedure for Mary Valiente Dear Dr. Marshall This procedure was performed on September. My impressions and recommendations are as follows: Impressions : - Normal duodenal bulb, first portion of the duodenum and second portion of the duodenum. No specimens collected. - Erythematous mucosa in the antrum. Biopsied. - Gastritis. Biopsied. - Small hiatal hernia. No specimens collected. - Z-line irregular, 38 cm from the incisors. Biopsied. - Normal esophagus. Recommendations : - Discharge patient to home (via wheelchair). - Resume previous diet today. - No aspirin, ibuprofen, naproxen, or other non-steroidal anti-inflammatory drugs for 2 days after biopsy. - Use sucralfate suspension 1 gram PO BID today. - Await pathology results. - Telephone my office for pathology results in 1 week. My findings are described in the full procedure note, which is enclosed. If I can be of further assistance, please feel free to contact me at Doctor phone number(s): , Work: . Sincerely, Skyla Schuster MD 09/22/2024 10:56:44 AM This report has been signed electronically. 09/22/24 1057 Date _ [facility]uster [facility] Signature: Date (if indicated) CC: Dr. Jerrica Marshall MD; Dr. Skyla Schuster MD ~ Date Dictated: 09/22/24 1005 Date Transcribed: Parking Enforcement Manager: ADAM Signed [facility]08-14-2025 Consult note [facility] Medical Records Department [address] [place] [address] Pre-Anesthesia Evaluation 09/22/24 100 MR#: [id number] Acct: [id number] Name: MARY VALIENTE Rep #:[id number] : 1960 63 From: Anjel Olmos MD PCP: Dr. Jerrica Marshall MD Status:R [facility] Y Race: C Location: [place] [address] ASA Classification* ASA Classification ASA Classification: 3 Assessment & Plan Anesthesia* Anesthesia Assessment Anesthesia Assessment: Discussed sedation and/or anesthesia options, risks, benefits, and alternatives with patient/parents/legal guardian/POA. Questions invited. The patient/parents/legal guardian/POA seems to understand and agrees to proceedwith anesthesia plan. Reviewed the physical assessment, medical history, allergy history and patient home medications list prior to surgery/procedure/anesthetic and documented any changes. Performed airway and anesthesia risk assessments. Anesthesia Type Anesthesia Type: MAC History Source History Obtained from:: Patient and Chart Anesthesia Focused Assessment* Temperature: 97.8 F Pulse Rate: 85 Blood Pressure: 107/79 Respiratory Rate: 18 Pulse Ox: 100 Oxygen Delivery Method: Room Air Airway Assessment Mouth opens: 2 cm Mallampati Score: IV Teeth Condition: Caps/Crowns (Patient has several crowns. They are all tight.) Neck Range of motion (ROM): Limited ROM (Severe Restriction) Comment: Short thyromental distance. Labs Anesthesia Preop lab: CBC WBC 3.2 K/mm3 (4.4-11.0) L 06/29/24 09:06/29/24 RBC 3.32 M/mm3 (4.2-5.4) L 06/29/24 09:06/29/24 Hgb 11.6 g/dL (12.0-15.0) L 06/29/24 09: 5 Hct 32.7 % (37-47) L 06/29/24 09:06/29/24 Plt Count 163 K/mm3 (150-450) 06/29/24 09:06/29/24 CHEMISTRY Potassium 4.2 mmol/L (3.3-5.1) 06/29/24 09:06/29/24 Sodium 134 mmol/L (133-145) 06/29/24 09:06/29/24 Magnesium 2.0 mg/dL (1.6-2.6) 01/26/24 08:01/26/24 Phosphorus 3.3 mg/dL (2.5-4.9) 01/26/24 08:28 01/26/24 BUN 13 mg/dL (4-19) 06/29/24 09:06/29/24 Creatinine 0.72 mg/dL (0.70-1.20) 06/29/24 09:06/29/24 Glucose 96 mg/dL (70-99) 06/29/24 09:06/29/24 POC Glucose 89 mg/dL (70-110) 01/08/16 15:10 01/08/16 TSH 0.90 uIU/mL (0.358-3.74) 11/06/20 15:15 COAG PT 13.9 SECONDS (11.7-14.9) 10/18/20 11:15 Pre-Assessment Diagnosis/Proposed Procedure Planned Operative Procedure(s): EGD Anesthesia History 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 When Was Last Pacemaker Check QUESTION #4 FULL TEXT: You/Your Family Experience fever (hyperthermia) with Anesthesia Last Oral Intake Last Oral intake: Last Oral Intake NPO since Meds taken in AM with sips of water? Meds patient instructed to take am of surgery Any additional information?: Yes NPO since: 00:00 Meds taken in AM with sips of water?: Yes Meds patient instructed to take am of surgery: Patient had half of aPercocet. 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 Female Yes 09/21/24 11:58 HX of Motion Sickness No 09/21/24 11:58 HX of N/V After Surgery No 09/21/24 11:58 Non-Smoker Yes 09/21/24 11:58 Duration of Surgery greater No 09/21/24 11:58 than 60 minutes Number of Risk Factors 2 09/21/24 11:58 PONV Score Moderate Risk 09/21/24 11:58 Height & Weight Height & Weight: Anesthesia: Height & Weight Height 4 ft 10 in 09/22/24 09:38 Weight: 43.2 kg 09/22/24 09:38 Body Mass Index (BMI) 19.9 09/22/24 09:38 Respiratory Assessment Respiratory Assessment - dubbing machine operator: Respiratory Tract Infection Hx - dubbing machine operator Hx Respiratory Tract Infection No 09/21/24 11:58 STOP Sleep Apnea STOP Sleep Apnea - dubbing machine operator: STOP Sleep Apnea - dubbing machine operator Hx Hypertension No 09/21/24 11:58 Hx Sleep Apnea No 09/21/24 11:58 CPAP BIPAP Do you snore loudly (louder No 09/21/24 11:58 than talking or can be heard Do you often feel tired/ No 09/21/24 11:58 fatigued/ sleepy during daytime? Has anyone observed you stop No 09/21/24 11:58 breathing during sleep? STOP Results Negative 09/21/24 11:58 QUESTION #5 FULL TEXT : Do you snore loudly (louder than talking or can be heard through closeddoors)? 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 Specify any problems Hx of Preganancy in last 3 No 09/21/24 11:58 Months Nurse Filling Out Transfusion VCHRISTIN 09/21/24 11:58 & Questions: Date: 09/21/24 09/21/24 11:58 Time: 11:59 09/21/24 11:58 Patient unable to answer at this time (ie. 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 Hx Now No 09/21/24 11:58 Gestational Age (in weeks): EDC: Hx Hx Para Hx Section SAB No 09/21/24 11:58 Active Medications Active Medications: Current Medications Generic Name Dose Route Start Last Admin Trade Name Freq PRN Reason Stop Dose Admin Lactated Ringer's 1,000 mls @ 15 mls/hr 09/22/24 09:30 09/22/24 09:47 IV 15 mls/hr .Q48H JACKSON Administration PFSH Medical History Oral candidiasis Encounter for education MRSA (methicillin resistant staph aureus) culture positive Cancer Depression Osteoarthritis High cholesterol Chronic pain B-cell non-Hodgkin lymphoma Anxiety and depression Nausea Constipation Abdominal discomfort Swallowing difficulty Hyperlipidemia Localized skin mass, lump, or swelling Encounter for vitamin deficiency screening Screening for cardiovascular condition Lymphadenopathy, inguinal Nonhealing surgical wound Medication side effects Osteoporosis GERD (gastroesophageal reflux disease) DDD (degenerative disc disease) Wears glasses Arthritis Low iron Easy bruising Poor appetite Epigastric abdominal pain Former smoker Leg cramps Neuropathy Chronic back pain Anemia Occluded PICC line Tachycardia Tobacco dependence in remission Home Medications ?Medication ?Instructions ?Recorded ?Last Taken ?Type ascorbic acid (vitamin C) 500 mg 500 mg PO DAILY vitam in 10/14/20 09/22/24 History tablet vitamin E 268 mg (400 unit) capsule 400 unit PO DAILY vitamin 10/14/20 09/22/24 History lysine 500 mg capsule 250 mg PO DAILY 07/02/21 History oxycodone-acetaminophen 5 mg-325 1 tab PO BID PRN pain 01/26/23 09/22/24 History mg tablet (Percocet) cholecalciferol (vitamin D3) 25 50 mcg PO DAILY vitami n 12/11/23 09/22/24 History mcg (1,000 unit) tablet docusate sodium 100 mg capsule 100 mg PO QDAY 12/11/23 01/03/24 History lidocaine-prilocaine 2.5 %-2.5 % 1 applic topical ONCE PRN port 01/04/24 Unknown Rx topical cream access 30 days #30 grams ondansetron 4 mg disintegrating 4 mg PO Q6H PRN nausea and 02/15/24 Unknown Rx tablet vomiting #60 tabs tizanidine 4 mg capsule 4 mg PO QHS PRN muscle spast icity 08/22/24 Unknown History trazodone 100 mg tablet 100 mg PO QHS PRN sleep #90 tabs 08/22/24 Unknown Rx Allergy/AdvReac Type Severity Reaction Status Date / Time codeine AdvReac Nausea Verified 09/22/24 09:37 hydrocodone (From Vicodin) AdvReac Nausea Verified 09/22/24 09:37 Surgical History Hx of surgical procedure History of colonoscopy History of esophagogastroduodenoscopy (EGD) History of carpal tunnel surgery of left wrist History of back surgery Carpal tunnel syndrome Hx of hysterectomy History of cholecystectomy H/O spinal fusion Social History household members: family Smoking Status: Former smoker alcohol intake: never substance use type: marijuana caffeine: Yes seatbelt use: always do you feel safe at home: Yes additional social history: Sumeet- Both on disability Review of Systems (Anesthesia) ROS Narrative System reviewed and no additional complaints, except as documented. 09/22/24 1012 brandy PEÑA> Date _ Anjel Olmos MD Cosigner Signature: Date CC: ~ Signed [facility]08-14-2025 History and physical note [facility] Medical Records Department [address] [place] [address] History & Physical Exam 09/22/24 1006 MR#: [id number] Acct: [id number] Name: ROCCOROSALIAMARY M Rep #:[id number] : 1960 63 From: Skyla Ritchie PCP: Dr. Jerrica Marshall MD Status:[facility] Location: [place] [address] History and Physical Date of Admission: 09/22/24 Date of Service: 09/14/24 MR#: [id number] Acct: [id number] Name: MARY VALIENTE Rep #: [id number] : 1960 Provider: Dr. Skyla Schuster MD Age/Sex: 63/F Location: [facility] Status: Signed Intake Vital Signs 08/22/2508:59 09/14/2513:42 Height 4 ft 10 in 4 ft 10 in Weight: 98 lb 96 lb BMI 20.5 20.0 BP 100/64 121/78 H Blood Pressure Location Lt brachial Rt brachial Position Sitting Sitting Respiration 16 18 Pulse 113 H Pulse Source Monitor Temp 98.2 F Temp Source Temporal Pulse Oximetry (%) 98 Oxygen Delivery Method room air Intake Visit Reasons: WEIGHT LOSS/ EPIGASTRIC PAIN Chief Complaint: wt loss and epigastric pain Retail Field Representative Required: No Is patient in pain?: Yes (epigastric/upper abd ) Pain scale (1-10): 10 Allergies codeine Adverse Reaction (Verified 09/14/24 14:43) Nauseahydrocodone (From Vicodin) Adverse Reaction (Verified 09/14/24 14:43) Nausea Medications ?Medication ?Instructions ?Recorded ?Confirmed ?Type ascorbic acid (vitamin C) 500 mg 500 mg PO DAILY vitamin 10/14/20 5 History tablet cyanocobalamin (vitamin B-12) 1,000 mcg PO DAILY vitamin 10/14/2008/03 History 1,000 mcg tablet vitamin E 268 mg (400 unit) capsule 400 unit PO DAILY vitamin 10/14/2009/14 History lysine 500 mg capsule 250 mg PO DAILY 07/02/21 09/14/24 Histor y oxycodone-acetaminophen 5 mg-325 1 tab PO BID PRN pain 01/26/23 09/14/24 History mg tablet (Percocet) cholecalciferol (vitamin D3) 25 50 mcg PO DAILY vitamin 12/11/23 5 History mcg (1,000 unit) tablet docusate sodium 100 mg capsule 100 mg PO QDAY 12/11/23 09/14/24 History lidocaine-prilocaine 2.5 %-2.5 % 1 applic topical ONCE PRN port 01/04/24 09/14/24 Rx topical cream access 30 days #30 grams sulfamethoxazole 800 1 tab PO .COMPLEX #30 tabs 01/04/2408/03 Rx mg-trimethoprim 160 mg tablet (Bactrim DS) duloxetine 30 mg capsule,delayed 30 mg PO QHS #90 caps 02/15/24 09/14/24 Rx release ondansetron 4 mg disintegrating 4 mg PO Q6H PRN nausea and 02/15/2408/03 Rx tablet vomiting #60 tabs acyclovir 400 mg tablet 400 mg PO BID #60 tabs 03/08/24 09/14/24 Rx nystatin 100,000 unit/mL oral 5 ml PO TID #473 mL 03/08/24 09/14/24 Rx suspension denosumab 60 mg/mL subcutaneous 60 mg subcut [id number] #1 mL 06/28/2408/03 Rx syringe (Prolia) tizanidine 4 mg capsule 4 mg PO QHS PRN 08/22/24 09/14/24 Histor y trazodone 100 mg tablet 100 mg PO QHS PRN sleep #90 tabs 5 09/14/24 Rx pantoprazole 20 mg tablet,delayed 20 mg PO QDAY #30 tabs 08/26/24 09/14/24 Rx release Have you fallen in the past year?: Yes PFSH Medical History Oral candidiasis Encounter for education MRSA (methicillin resistant staph aureus) culture positive Cancer Depression Osteoarthritis High cholesterol Chronic pain B-cell non-Hodgkin lymphoma Anxiety and depression Nausea Constipation Abdominal discomfort Swallowing difficulty Hyperlipidemia Localized skin mass, lump, or swelling Encounter for vitamin deficiency screening Screening for cardiovascular condition Lymphadenopathy, inguinal Nonhealing surgical wound Medication side effects Osteoporosis GERD (gastroesophageal reflux disease) DDD (degenerative disc disease) Wears glasses Arthritis Low iron Easy bruising Poor appetite Epigastric abdominal pain Former smoker Leg cramps Neuropathy Chronic back pain Anemia Occluded PICC line Tachycardia Tobacco dependence in remission Surgical History History of colonoscopy History of esophagogastroduodenoscopy (EGD) History of carpal tunnel surgery of left wrist History of back surgery Carpal tunnel syndrome Hx of hysterectomy History of cholecystectomy H/O spinal fusion Social History household members: family Smoking Status: Former smoker alcohol intake: never substance use type: marijuana caffeine: Yes seatbelt use: always do you feel safe at home: Yes additional social history: Sumeet- Both on disability HPI HPI HPI: Patient is a 63-year-old female who is known to me for a history of dysphagia and more recently wasseen by me in December 2023 for concerns around inguinal lymphadenopathy that ultimately led to a diagnosis of B-cell lymphoma. She is referred today from gastroenterology due to chief complaint of epigastric abdominal pain over the last 2 months and has resulted in significant weight loss. She states she underwent her last treatment for her cancer approximately 2 months ago and her symptoms began shortly after concluding treatment. She describes an epigastric abdominal pain that persists in a bandlike distribution across her upper abdomen with a sharp and aching character. She shares this is distinct from typical heartburn or reflux type pains. She also notes that itis constant and nothing seems to make it better or worse. She states she has tried Tums without relief and more recentlywas prescribed pantoprazole by gastroenterology but again did not notice any relief of her symptoms. She confirms some associated nausea but denies any associated bloating. She also denies any coughing up of blood and reports that her bowel movements are occurring once daily. She states there may be somewhat softer than normal but otherwise denies any presence of bloody or dark stools. Patient completed gastric emptying study yesterday as part of gastroenterology'sordered workup and this showed delayed gastric emptying. Her last EGD was performed by me on 08/25/2023 and found evidence of gastritis, hiatal hernia, andsome esophageal plaques. She is pending repeat CT imaging of the abdomen pelvison 09/21/2024. ROS General General: Yes weight change; No appetite, fatigue, colon cancer, breast cancer or weakness HEENT HEENT: Yes difficulty swallowing; No eye injury, eye surgery, swollen glands or hoarseness Endo Endocrine: No thyroid disease, diabetes mellitus, thyroid cancer, Hair loss, heat intolerance or cold intolerance Skin Skin: No rash or changing moles Breast Breast: No left breast lump, right breast lump, nipple discharge, breast pain, abnormal mammogram, abnormal US or breast enlargement Musc Musculoskeletal: Yes back problems and arthritis; No rheumatoid arthritis, gout or joint pain Cardio Cardiovascular: No murmur, pacemaker, heart disease, atrial fibrillation, high blood pressure, heart attack, heart stent, palpitations, shortness of breath with exertion or chest pain Psych Psychiatric: No depression, anxiety or hearing voices Resp Respiratory: No shortness of breath, Yes sleep apnea, No cough, No COPD, No asthma, No emphysema and No wheezing Gastro Gastrointestinal: Yes abdominal pain, Yes nausea or vomiting, No diarrhea, No constipation, No blood in stool, No acid reflux, No hemorrhoids, No ulcers, No gallbladder problem and No black,tarry stools Pepe Hematologic: No blood thinners, No blood disorders, No bleeding, No anemia and No blood clots Neuro Neurologic: No system reviewed and no additional complaints, except as documented, No as per HPI, No abnormal gait, No abnormal hearing, No abnormal movements, No abnormal speech, No behavioral changes, No burning sensations, No confusion, No convulsions, No disequilibrium, No dizziness, No localized weakness, No frequent falls, No headache(s), No lack of coordination, No loss ofvision, No memoryloss, No numbness, No other visual disturbances, No radicular pain, No restless legs, No sensory deficit, No syncope, No tingling, No tremor(s), No weakness and No other Exam Const General: cooperative and anxious Orientation: alert, awake and oriented x3 Other: Somewhat shaky Resp Effort & Inspection: normal respiratory effort GI Other: Thin, nondistended, chronic scars without evidence of herniation, soft, markedlytender to palpationacross the epigastrium with much less tenderness does not move laterally to the right upper or leftupper abdominal quadrants. No true peritoneal signs. Assessment and Plan Assessment and Plan (1) Epigastric pain: Status: Acute Comment: Patient is 63-year-old female who makes consultation related to severe, refractory epigastric discomfort. She was originally referred to gastroenterology, however, she stated she wished to undergo EGD with me given our history together. She presents today for that purpose. However, she completed gastric emptying study yesterday for gastroenterology and is pending repeat CT imaging of the abdomen pelvis. Gastric emptying study was notable for some delayed gastric emptying. Patient shares associated weight loss with pain but does clarify that food does not seem to make it worse. Her abdominal exam shows sometenderness of the epigastrium, but this does not seem to be consistent with peritonealinflammation. Based on patient's descriptions, I am most suspicious for peptic ulcer disease versusgastritis. Temp orally, this appears to be related to patient's last chemo administration. Will plan to seek input from oncology as to any known gastrointestinal effects from that treatment. For the interim have recommended to patient that she plan to return to pantoprazole (patient states that shehas gone off this medication but does not know why). Ialso encouraged her to consider cutting out any caffeine given its inhibitory effects on the lower esophageal sphincter. I considered prescribingher a course of Reglan to act as both an antiemetic and a prokinetic, however, patientrepeatedly complains about the number of medication she is presently prescribed and I am concerned about changingtoo many variables at once. Her history is supportive of a diagnosis of delayed gastric emptying, but I remain cautious about taking too much from this study given patient's acute symptoms and risk for a skewed result. Will plan for urgent endoscopic evaluation and further treatment plans pending that evaluation and communication with oncology and gastroenterology. Plan: ? Patient instructed to resume pantoprazole first thing in the morning absent any food or drink ? Patient encouraged to abstain from caffeine ? Plan for diagnostic EGD at first availability (2) Weight loss, non-intentional: Status: Acute I have examined the patient and the H&P has been reviewed. There are no clinicalchanges since date of exam. Patient reports ongoing abdominal discomfort. Abdominal exam remains consistent with mild tenderness of the epigastrium on palpation. Will proceed to endoscopy suite for diagnostic EGD. 09/22/24 1007 Cosigner Signature (if applicable): CC: Dr. Jerrica Marshall MD; Dr. Skyla Schuster MD~ Signed [facility]08-14-2025 [facility]08-05-2025 Nuclear medicine Diagnostic study note [facility] Imaging Services [address] [place] [id number] Gastric Emptying Study MR#: [id number] Acct: [id number] Name: MARY VALIENTE Rep #: [id number] : 1960 F 63 From: Casper Waters MD PCP: Dr. 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 Prior cholecystectomy. COMPARISON: None TECHNIQUE: The patient ingested a semi-solid meal of oatmeal. There was no vomiting postprandially. Anterior and posterior planar images of the upper abdomen were obtained for a total of 60 minutes. Regions of interest were drawn, and a geometric mean was used to calculate a [id number]. Medications taken in the past 24 hours that may affect gastric emptying: None RADIOPHARMACEUTICAL: Technetium 99 M sulfur colloid DOSE 1.2mCi orally, with theoatmeal. FINDINGS: During the time of imaging, gastroesophageal reflux was not seen. Linear fit gastric emptying half-time of 102.4 minutes. Gastric emptying at 17.5 minutes of 6%, at 29.5 minutes of 11%, at 47.5 minutes of 20%, and at 59.5minutes of 30%. NM/Gastric Emptying Study IMPRESSION: Delayed/diminished semi solid phase gastric emptying. Reading Location: [place] [address] CC: NIMO Brown; Dr. Jerrica Marshall MD ~ Parking Enforcement Manager: Signed [facility]07-14-2025 Evaluation note* Diagnosis Onset Date Resolution Status Admit Date Abdominal discomfort chronic August 22, 2024 9:51am Anxiety and depression chronic 2024 9:51am Chronic pain chronic August 22 9:51am Dysphagia chronic August 22 9:51am Insomnia chronic August 22 9:51am Osteoporosis chronic August 22 9:51am B-cell non-Hodgkin lymphoma acute August 26, 2024 1:20pm Epigastric pain acute August 1:20pm Nausea and vomiting acute August 26, 2024 1:20pm Weight loss, non-intentional acute August 26, 2024 1:20pm Epigastric pain acute September 2:07pm Weight loss, non-intentional acute September 14, 2024 2:07pm Chronic abdominal pain chronic Se pt2024 9:37am GERD (gastroesophageal reflu x disease) chronic October 17 9:37am Osteoporosis chronic October 9:37am Early satiety acute October 102024 10:18am Frequent headaches acute 2024 10:18am Nausea acute October 10:18am Chronic abdominal pain chronic Se ptember 2024 10:18am [facility] Work Phone: [phone] Evaluation note* Diagnosis Onset Date Resolution Status Admit Date Follicular lymphoma grade I resolved June 29, 2024 9:00am Abdominal discomfort chronic August 22, 2024 9:51am Anxiety and depression chronic 2024 9:51am Chronic pain chronic August 22 9:51am Dysphagia chronic August 22 9:51am Insomnia chronic August 22 9:51am Osteoporosis chronic August 22, 2 025 9:51am B-cell non-Hodgkin lymphoma acute August 26, 2024 1:20pm Epigastric pain acute August 1:20pm Nausea and vomiting acute August 26, 2024 1:20pm Weight loss, non-intentional acute August 26, 2024 1:20pm Epigastric pain acute September 2:07pm Weight loss, non-intentional acute September 14, 2024 2:07pm Chronic abdominal pain chronic Se pt2024 9:37am GERD (gastroesophageal reflu x disease) chronic October 17 2 025 9:37am Osteoporosis chronic October 9:37am [facility] Work Phone: 1(640) 757-397705-21-2025 Progress [facility] [address] [place] [address] OFFICE VISIT Date of Service: 06/29/24 1017 MR#: [id number] Acct: [id number] Name: MARY VALIENTE Rep #: [id number] : 1960 From: Ernesto Jaramillo MD Age/Sex: 63/F Location: [facility] Status: Signed HPI Subjective Date of Service 06/29/24 Chief Complaint F/u for follicular lymphoma. History of Present Illness 63 y.o.woman was found to have enlarging L armpit, bilateral groin nodes. CT a/erica 09/30/2023 showedworsening bilateral groin nodes. US on 10/26/2023 showed bilateral inguinal nodes. Had a core biopsyof Left groin node on 11/20/2023 which showed Follicular Lymphoma grade 1. She was referred for further management. PET/CT 12/15/2023 reviewed, showed hypermetabolic activity bilateral axillae, retrosternal regions, mediastinum, bilateral hilar area, left hypopharyngeal area, bilateral retroperitoneal area, pelvis and inguinal area . She was diagnosed with Stage IV disease with bone involvement. Port was placed on 01/04/2024. Started BR 01/12/24. Cycle 2 given 02/08/24. Groin nodes have resolved. Supported with 4 doses IV iron January 20, 2024 through February 15, 2024. Cycle 3 given March 08, 2024. PET/CT 03/22/2024 showed Complete metabolic response. Cycle 4 given April 05, 2024. C5 was given on 05/03/2024. Got C6 on 05/31/2024. Comes for follow up. Has lower back pain from previous surgery. [facility] Medical History Oral candidiasis Encounter for education MRSA (methicillin resistant staph aureus) culture positive Cancer Depression Osteoarthritis High cholesterol Chronic pain B-cell non-Hodgkin lymphoma Anxiety and depression Nausea Constipation Abdominal discomfort Swallowing difficulty Hyperlipidemia Localized skin mass, lump, or swelling Encounter for vitamin deficiency screening Screening for cardiovascular condition Lymphadenopathy, inguinal Nonhealing surgical wound Medication side effects Osteoporosis GERD (gastroesophageal reflux disease) DDD (degenerative disc disease) Wears glasses Arthritis Low iron Easy bruising Poor appetite Epigastric abdominal pain Former smoker Leg cramps Neuropathy Chronic back pain Anemia Occluded PICC line Tachycardia Tobacco dependence in remission Surgical History History of colonoscopy History of esophagogastroduodenoscopy (EGD) History of carpal tunnel surgery of left wrist History of back surgery Carpal tunnel syndrome Hx of hysterectomy History of cholecystectomy H/O spinal fusion Social History household members: family Smoking Status: Former smoker alcohol intake: never substance use type: marijuana caffeine: Yes seatbelt use: always do you feel safe at home: Yes additional social history: Sumeet- Both on disability Intake Vital Signs 05/31/24 10:41 06/29/24 10:20 Height 4 ft 10 in 4 ft 10 in Weight: 45.955 kg BMI 21.2 BP 98/68 Blood Pressure Location Lt brachial Position Sitting Respiration 18 Pulse 83 Pulse Source Monitor Temp 98.6 F Temperature Source Temporal Artery Pulse Oximetry (%) 98 Oxygen Delivery Method room air Intake Is patient in pain?: Yes (chronic back pain) Pain scale (1-10): 10 Allergies codeine Adverse Reaction (Verified 06/29/24 10:24) Nausea hydrocodone (From Vicodin) Adverse Reaction (Verified 06/29/24 10:24) Nausea Medications ?Medication ?Instructions ?Recorded ?Confirmed ?Type ascorbic acid (vitamin C) 500 mg 500 mg PO DAILY vitam in 10/14/20 06/29/24 History tablet cyanocobalamin (vitamin B-12) 1,000 mcg PO DAILY vitam in 10/14/20 06/29/24 History 1,000 mcg tablet vitamin E 268 mg (400 unit) capsule 400 unit PO DAILY vitamin 10/14/20 06/29/24 History lysine 500 mg capsule 250 mg PO DAILY 07/02/21 History oxycodone-acetaminophen 5 mg-325 1 tab PO BID PRN pain 01/26/23 06/29/24 History mg tablet (Percocet) cholecalciferol (vitamin D3) 25 50 mcg PO DAILY vitami n 12/11/23 06/29/24 History mcg (1,000 unit) tablet docusate sodium 100 mg capsule 100 mg PO QDAY 12/11/23 06/29/24 History lidocaine-prilocaine 2.5 %-2.5 % 1 applic topical ONCE PRN port 01/04/24 06/29/24 Rx topical cream access 30 days #30 grams sulfamethoxazole 800 1 tab PO .COMPLEX #30 tabs 1 03/05/23 06/29/24 Rx mg-trimethoprim 160 mg tablet (Bactrim DS) trazodone 50 mg tablet 50 mg PO QHS PRN sleep #90 t abs 01/25/24 06/29/24 Rx duloxetine 30 mg capsule,delayed 30 mg PO QHS #90 caps 02/15/24 06/29/24 Rx release ondansetron 4 mg disintegrating 4 mg PO Q6H PRN nausea and 02/15/24 06/29/24 Rx tablet vomiting #60 tabs acyclovir 400 mg tablet 400 mg PO BID #60 tabs 03/0806/29/24 Rx nystatin 100,000 unit/mL oral 5 ml PO TID #473 mL 02/1006/29/24 Rx suspension denosumab 60 mg/mL subcutaneous 60 mg subcut [id number] #1 mL 06/28/24 06/29/24 Rx syringe (Prolia) Central Venous Access Central Venous Access: Yes Port/PICC: Port (right chest) Laboratory Tests 06/29/24 09:31 WBC 3.2 L Hgb 11.6 L Hct 32.7 L Plt Count 163 Absolute Neuts (auto) 2.1 Absolute Lymphs (auto) 0.54 L Sodium 134 Potassium 4.2 Chloride 101 Carbon Dioxide 23.2 BUN 13 Creatinine 0.72 Glucose 96 Uric Acid 3.4 Calcium 9.5 Ferritin 970 H Total Bilirubin 0.18 AST 31 ALT 25 Alkaline Phosphatase 102 C-React Prot Ext Range < 3.00 Total Protein 6.6 Albumin 4.2 Globulin 2.4 Vitamin B12 633 Exam Physical Exam Narrative ECOG 1 (limited by chronic pain) Const alert, oriented x3 and no apparent distress HEENT normocephalic and head/scalp atraumatic Eyes General Eye: normal appearance of both eyes Neck no lymphadenopathy Lymph Lymphatic Narrative: Fatty pad left axilla ? Lipoma Chest Chest Narrative: Port R IC area. Resp normal air movement and clear to auscultation bilaterally Cardio regular rate, regular rhythm, S1 normal heart sound and S2 normal heart sound GI normal to inspection, nondistended, normoactive bowel sounds and non-tender Back/Spine Back/Spine Narrative: tender throughout, multiple scars presents Extremity no clubbing, cyanosis or edema Neuro oriented x3 and CN's II-XII intact bilaterally Psych mental status grossly normal Coding Level of Care Code Off vis,est,level 4 Exam Problem Focused Diagnoses Grade 1 follicular lymphoma of lymph nodes of multiple regions C82.08 Lymphoma site: multiple regions Assessment and Plan Assessment and Plan (1) Follicular lymphoma grade I: Status: Resolved Qualifiers: Lymphoma site: multiple regions Qualified Code(s): C82.08 - Follicular lymphoma grade I, lymph nodes of multiple sites Comment: PET/CT performed on 03/22/24 showed CR(Complete Remission). Finished BR on 06/01/2024. Comes for follow up. Counts and chemistry reviewed, OK post chemotherapy and monoclonal antibody therapy. Discussed observation as management after complete remission. Pt understands. Plan: To do observation. Plan Details Follow Up: 6 Months 06/29/24 1057 D> Date _ Ernesto Jaramillo MD Cosigner Signature: Date (if applicable) CC: Dr. Jerrica Marshall MD ~ [facility]05-21-2025 Progress note Author Ernesto Jaramillo [facility] Note Date/Time June 29, 2024 10:57 am [facility] [place] [address] OFFICE VISIT Date of Service: 06/29/24 1017 MR#: [id number] Acct: [id number] Name: MARY VALIENTE Rep #: [id number] : 1960 From: Ernesto Jaramillo MD Age/Sex: 63/F Location: [facility] Status: Signed HPI Subjective Date of Service 06/29/24 Chief Complaint F/u for follicular lymphoma. History of Present Illness 63 y.o.woman was found to have enlarging L armpit, bilateral groin nodes. CT a/erica 09/30/2023 showed worsening bilateral groin nodes. US on 10/26/2023 showed bilateral inguinal nodes. Had a core biopsy of Left groin node on 11/20/2023 which showed Follicular Lymphoma grade 1. She was referred for further management. PET/CT 12/15/2023 reviewed, showed hypermetabolic activity bilateral axillae, retrosternal regions, mediastinum, bilateral hilar area, left hypopharyngeal area, bilateral retroperitoneal area, pelvis and inguinal area . She was diagnosed with Stage IV disease with bone involvement. Port was placed on 01/04/2024. Started BR 01/12/24. Cycle 2 given 02/08/24. Groin nodes have resolved. Supported with 4 doses IV iron January 20, 2024 through February 15, 2024. Cycle 3 given March 08, 2024. PET/CT 03/22/2024 showed Complete metabolic response. Cycle 4 given April 05, 2024. C5 was given on 05/03/2024. Got C6 on 05/31/2024. Comes for follow up. Has lower back pain from previous surgery. [facility] Medical History Oral candidiasis Encounter for education MRSA (methicillin resistant staph aureus) culture positive Cancer Depression Osteoarthritis High cholesterol Chronic pain B-cell non-Hodgkin lymphoma Anxiety and depression Nausea Constipation Abdominal discomfort Swallowing difficulty Hyperlipidemia Localized skin mass, lump, or swelling Encounter for vitamin deficiency screening Screening for cardiovascular condition Lymphadenopathy, inguinal Nonhealing surgical wound Medication side effects Osteoporosis GERD (gastroesophageal reflux disease) DDD (degenerative disc disease) Wears glasses Arthritis Low iron Easy bruising Poor appetite Epigastric abdominal pain Former smoker Leg cramps Neuropathy Chronic back pain Anemia Occluded PICC line Tachycardia Tobacco dependence in remission Surgical History History of colonoscopy History of esophagogastroduodenoscopy (EGD) History of carpal tunnel surgery of left wrist History of back surgery Carpal tunnel syndrome Hx of hysterectomy History of cholecystectomy H/O spinal fusion Social History household members: family Smoking Status: Former smoker alcohol intake: never substance use type: marijuana caffeine: Yes seatbelt use: always do you feel safe at home: Yes additional social history: Jaydon Cabral on disability Intake Vital Signs 05/31/24 10:41 06/29/24 10:20 Height 4 ft 10 in 4 ft 10 in Weight: 45.955 kg BMI 21.2 BP 98/68 Blood Pressure Location Lt brachial Position Sitting Respiration 18 Pulse 83 Pulse Source Monitor Temp 98.6 F Temperature Source Temporal Artery Pulse Oximetry (%) 98 Oxygen Delivery Method room air Intake Is patient in pain?: Yes (chronic back pain) Pain scale (1-10): 10 Allergies codeine Adverse Reaction (Verified 06/29/24 10:24) Nausea hydrocodone (From Vicodin) Adverse Reaction (Verified 06/29/24 10:24) Nausea Medications ?Medication ?Instructions ?Recorded ?Confirmed ?Type ascorbic acid (vitamin C) 500 mg 500 mg PO DAILY vitam in 10/14/20 06/29/24 History tablet cyanocobalamin (vitamin B-12) 1,000 mcg PO DAILY vitam in 10/14/20 06/29/24 History 1,000 mcg tablet vitamin E 268 mg (400 unit) capsule 400 unit PO DAILY vitamin 10/14/20 06/29/24 History lysine 500 mg capsule 250 mg PO DAILY 07/02/21 History oxycodone-acetaminophen 5 mg-325 1 tab PO BID PRN pain 01/26/23 06/29/24 History mg tablet (Percocet) cholecalciferol (vitamin D3) 25 50 mcg PO DAILY vitami n 12/11/23 06/29/24 History mcg (1,000 unit) tablet docusate sodium 100 mg capsule 100 mg PO QDAY 12/11/23 06/29/24 History lidocaine-prilocaine 2.5 %-2.5 % 1 applic topical ONCE PRN port 01/04/24 06/29/24 Rx topical cream access 30 days #30 grams sulfamethoxazole 800 1 tab PO .COMPLEX #30 tabs 1 03/05/23 06/29/24 Rx mg-trimethoprim 160 mg tablet (Bactrim DS) trazodone 50 mg tablet 50 mg PO QHS PRN sleep #90 t abs 01/25/24 06/29/24 Rx duloxetine 30 mg capsule,delayed 30 mg PO QHS #90 caps 02/15/24 06/29/24 Rx release ondansetron 4 mg disintegrating 4 mg PO Q6H PRN nausea and 02/15/24 06/29/24 Rx tablet vomiting #60 tabs acyclovir 400 mg tablet 400 mg PO BID #60 tabs 03/0806/29/24 Rx nystatin 100,000 unit/mL oral 5 ml PO TID #473 mL 02/1006/29/24 Rx suspension denosumab 60 mg/mL subcutaneous 60 mg subcut [id number] #1 mL 06/28/24 06/29/24 Rx syringe (Prolia) Central Venous Access Central Venous Access: Yes Port/PICC: Port (right chest) Laboratory Tests 06/29/24 09:31 WBC 3.2 L Hgb 11.6 L Hct 32.7 L Plt Count 163 Absolute Neuts (auto) 2.1 Absolute Lymphs (auto) 0.54 L Sodium 134 Potassium 4.2 Chloride 101 Carbon Dioxide 23.2 BUN 13 Creatinine 0.72 Glucose 96 Uric Acid 3.4 Calcium 9.5 Ferritin 970 H Total Bilirubin 0.18 AST 31 ALT 25 Alkaline Phosphatase 102 C-React Prot Ext Range < 3.00 Total Protein 6.6 Albumin 4.2 Globulin 2.4 Vitamin B12 633 Exam Physical Exam Narrative ECOG 1 (limited by chronic pain) Const alert, oriented x3 and no apparent distress HEENT normocephalic and head/scalp atraumatic Eyes General Eye: normal appearance of both eyes Neck no lymphadenopathy Lymph Lymphatic Narrative: Fatty pad left axilla ? Lipoma Chest Chest Narrative: Port R IC area. Resp normal air movement and clear to auscultation bilaterally Cardio regular rate, regular rhythm, S1 normal heart sound and S2 normal heart sound GI normal to inspection, nondistended, normoactive bowel sounds and non-tender Back/Spine Back/Spine Narrative: tender throughout, multiple scars presents Extremity no clubbing, cyanosis or edema Neuro oriented x3 and CN's II-XII intact bilaterally Psych mental status grossly normal Coding Level of Care Code Off vis,est,level 4 Exam Problem Focused Diagnoses Grade 1 follicular lymphoma of lymph nodes of multiple regions C82.08 Lymphoma site: multiple regions Assessment and Plan Assessment and Plan (1) Follicular lymphoma grade I: Status: Resolved Qualifiers: Lymphoma site: multiple regions Qualified Code(s): C82.08 - Follicular lymphoma grade I, lymph nodes of multiple sites Comment: PET/CT performed on 03/22/24 showed CR(Complete Remission). Finished BR on 06/01/2024. Comes for follow up. Counts and chemistry reviewed, OK post chemotherapy and monoclonal antibody therapy. Discussed observation as management after complete remission. Pt understands. Plan: To do observation. Plan Details Follow Up: 6 Months 06/29/24 1057 <Electronically signed by Ernesto Ritchie> Date _ Ernesto Jaramillo MD Cosigner Signature: Date (if applicable) CC: Dr. Jerrica Marshall MD ~ [employer] Work Phone: 1(401) 308-461104-22-2025 Evaluation note* Diagnosis Onset Date Resolution Status Admit Date Chemotherapy management, encounter for acute May 31, 2024 9:33am Encounter for monoclonal antibody treatment for malignancy acute May 31, 2024 9:33am Follicular lymphoma grade I resolved May 31, 2024 9:33am Follicular lymphoma grade I resolved June 29, 2024 9:00am Abdominal discomfort chronic August 22, 2024 9:51am Anxiety and depression chronic Ju ly 2024 9:51am Chronic pain chronic August 22, 2 025 9:51am Dysphagia chronic August 22 9:51am Insomnia chronic August 22 9:51am Osteoporosis chronic August 22 025 9:51am B-cell non-Hodgkin lymphoma acute August 26, 2024 1:20pm Epigastric pain acute August 1:20pm Nausea and vomiting acute August 26, 2024 1:20pm Weight loss, non-intentional acute August 26, 2024 1:20pm [facility] Work Phone: 1(396) 174-615704-22-2025 Evaluation note* Diagnosis Onset Date Resolution Status Admit Date Chemotherapy management, encounter for acute May 31, 2024 9:33am Encounter for monoclonal antibody treatment for malignancy acute May 31, 2024 9:33am Follicular lymphoma grade I resolved May 31, 2024 9:33am Follicular lymphoma grade I resolved June 29, 2024 9:00am Abdominal discomfort chronic August 22, 2024 9:51am Anxiety and depression chronic Ju ly 2024 9:51am Chronic pain chronic August 22, 025 9:51am Dysphagia chronic August 22 9:51am Insomnia chronic August 22 9:51am Osteoporosis chronic August 22 025 9:51am B-cell non-Hodgkin lymphoma acute August 26, 2024 1:20pm Epigastric pain acute August 1:20pm Nausea and vomiting acute August 26, 2024 1:20pm Weight loss, non-intentional acute August 26, 2024 1:20pm Epigastric pain acute September 2:07pm Weight loss, non-intentional acute September 14, 2024 2:07pm [facility] Work Phone: 1(536) 860-140403-25-2025 Evaluation note* Diagnosis Onset Date Resolution Status Admit Date Chemotherapy management, encounter for acute May 03, 2024 8:50am Encounter for monoclonal antibody treatment for malignancy acute May 03, 2024 8:50am Follicular lymphoma grade I resolved May 03, 2024 8:50am Chemotherapy management, encounter for acute May 31, 2024 9:33am Encounter for monoclonal antibody treatment for malignancy acute May 31, 2024 9:33am Follicular lymphoma grade I resolved May 31, 2024 9:33am Follicular lymphoma grade I resolved June 29, 2024 9:00am [facility] Work Phone: 1(396) 925-894403-25-2025 Evaluation note* Diagnosis Onset Date Resolution Status Admit Date Chemotherapy management, encounter for acute May 03, 2024 8:50am Encounter for monoclonal antibody treatment for malignancy acute May 03, 2024 8:50am Follicular lymphoma grade I resolved May 03, 2024 8:50am Chemotherapy management, encounter for acute May 31, 2024 9:33am Encounter for monoclonal antibody treatment for malignancy acute May 31, 2024 9:33am Follicular lymphoma grade I resolved May 31, 2024 9:33am Follicular lymphoma grade I resolved June 29, 2024 9:00am Abdominal discomfort chronic August 22, 2024 9:51am Anxiety and depression chronic Ju 2024 9:51am Chronic pain chronic August 22, 025 9:51am Dysphagia chronic August 22 9:51am Insomnia chronic August 22 9:51am Osteoporosis chronic August 22, 2 025 9:51am Nausea and vomiting acute August 26, 2024 1:20pm Weight loss, non-intentional resolve d August 26, 2024 1:20pm [facility] Work Phone: 1(106) 640-734702-24-2025 Telephone encounter Note* Telephone Encounter - Valorie Oh APRN.CNP - 04/04/2024 12:34 PM EST Called the cancer center, to speak with nurse Anais, no answer left a detailed VM, including the office phone number for return call. Valorie Oh, MSN, AGP-MANAGER NICU [facility] - [facility] Work Phone: 1(155) 143-463302-24-2025 Miscellaneous Notes* Telephone Encounter - Valorie Oh APRN.CNP - 04/04/2024 12:34 PM EST Called the cancer center, to speak with nurse Anais, no answer left a detailed VM, including the office phone number for return call. Valorie Oh, MSN, AGP-MANAGER NICU [facility] * Telephone Encounter - Robyn Singh - 04/04/2024 11:12 AM EST Please see call center message and advise patient. Robyn Singh April 04, 2024 11:12 AM * Telephone Encounter - Robyn Singh - 04/04/2024 11:12 AM EST ----- Message from Maria Isabel Kemp sent at 04/04/2024 10:22 AM EST ----- Regarding: Endo/Adrinao/Follow Up Appointment Question Endo/Adriano/Follow Up Appointment Question Patient: Mary Valiente Date of : 1960 Primary Care Provider: Jerrica Marshall MD Patient has been identified by name and Date of (Y/N): Y Patient: Mary Valiente Date of : 1960 Provider for this encounter: Kayla Oh Reason for the call/escalation: Pt said that Valorie was supposed to call pt last regarding a medication for osteoporosis. Valorie was supposed to reach out to pt's oncologist to see if pt is able to take it. Pt has a treatment on Thursday04/05/24. After I hung up with patient, received a call from [facility] regarding same issue. office will send imaging reports, last office note, and latest blood work results. Office wants to know if they [facility]. Please call Anais at the cancer center first before calling patient. Was Patient Referred to 911/Seek Emergency Treatment (Y/N): na Did Patient Agree (Y/N): na Was An Attempt Made To Transfer The Patient To The Office (Y/N): na Were You Able To Reach Someone At The Office (Y/N): na If Yes - Patient Was Transferred To (Caregivers Name): na If No - Which [facility] [place] Technician Did You Speak With Regarding This Patient: na Was an appointment scheduled (Y/N): na Reason patient was requesting visit (RFV/signs and symptoms/diagnosis) : follow up Person calling if other than patient: pt/ Anais for [facility] Return call to if other than patient: pt Best contact number: [phone]/ [phone] Thank you, Maria Isabel Bowen April 04, 2024 10:22 AM [facility] Telephone encounter Note * Telephone Encounter - Robyn Singh - 04/04/2024 11:12 AM EST Please see call center message and advise patient. Robyn Singh April 04, 2024 11:12 AM [facility]-24-[facility]25 Telephone encounter Note* Telephone Encounter - Robyn Singh - 04/04/2024 11:12 AM EST ----- Message from Maria Isabel Kemp sent at 04/04/2024 10:22 AM EST ----- Regarding: Endo/Adriano/Follow Up Appointment Question Endo/Adriano/Follow Up Appointment Question Patient: Mary Valiente Date of : 1960 Primary Care Provider: Jerrica Marshall MD Patient has been identified by name and Date of (Y/N): Y Patient: Mary Valiente Date of : 1960 Provider for this encounter: Kayla Oh Reason for the call/escalation: Pt said that Valorie was supposed to call pt last regarding a medication for osteoporosis. Valorie was supposed to reach out to pt's oncologist to see if pt is able to take it. Pt has a treatment on Thursday04/05/24. After I hung up with patient, received a call from [facility] regarding same issue. office will send imaging reports, last office note, and latest blood work results. Office wants to know if they should push the [facility]. Please call Anais at the [facility] first before calling patient. Was Patient Referred to [facility]/Seek Emergency Treatment (Y/N): na Did Patient Agree (Y/N): na Was An Attempt Made To Transfer The Patient To The Office (Y/N): na Were You Able To Reach Someone At The Office (Y/N): na If Yes - Patient Was Transferred To (Caregivers Name): na If No - Which [facility] [place] Technician Did You Speak With Regarding This Patient: na Was an appointment scheduled (Y/N): na Reason patient was requesting visit (RFV/signs and symptoms/diagnosis) : follow up Person calling if other than patient: pt/ Anais for [facility] Return call to if other than patient: pt Best contact number: [phone]/ [phone] Thank you, Maria Isabel Bowen April 04, 2024 10:22 AM [facility]02-18-2025 Telephone encounter Note* Telephone Encounter - Jassi Joshi - 03/29/2024 7:12 AM EST Recent labs uploaded to patients chart Jassi Joshi [facility]02-18-2025 Miscellaneous Notes* Telephone Encounter - Jassi Joshi - 03/29/2024 7:12 AM EST Recent labs uploaded to patients chart Jassi Joshi documented in this encounterCity [facility]-17-[facility] History of Present illness Narrative* Valorie Oh APRN.MANAGER NICU - 03/28/2024 10:30 AM EST Images from the original note were not included. ENDOCRINE OSTEOPOROSIS FOLLOW UP SUBJECTIVE: LAST SEEN: 09/28/2023 INITIAL EVALUATION:09/28/2023 TIMELINE: Diagnosed with osteopenia/osteoporosis 09/05/2021 Establish care with [facility] 09/28/2023 Patient seen at the request of / referral from: Rosio Butterfield I, MD [facility] CHIEF COMPLAINT: Patient presents for management of her osteoporosis History of Present Illness Mary Valiente is a 62 year old female who presents in referral for my opinion regarding evaluation and management of osteoporosis. [facility] was [facility] [facility]Patient stated that she has screws loose in her back and she has a lot of pain because of that. Sheis not felling good at all. [facility]. Patient is on treatment with Prolia injection for the past 1.5 years started by her PCP. She had 3 doses so far, tolerates medication well. Last dose 08/10/2023. Never had any fracture in the past. Shehas a new compression fracture on C7 - Multiple thoracolumbar spinal fusions. FOLLOW UP VISIT: 03/28/2024 Patient seen in follow up today Mary Valiente 63 year old who presents today for osteoporosis management. She is on Prolia [id number] given at her PCP office. In November 2023 she was diagnosed with non hodgkin's lymphoma. She started treatment with chemo in December at [facility]. Also she stated that her daughter was dx with uterine cancer stage IV, and she can't have hysterectomy and they said she might have only 2 years to live. She is 41 years old. Patient stated that she is very depressed, and she is crying. She has a port on right chest for chemo. She will have chemo for 9 months, monthly. Denies recent falls or fractures. CANCER CENTER PHONE NUMBER: [phone] Upcoming dental procedures planned? NO Participating in weight bearing exercise? NO Last Fall: N/A Ambulatory assistance: N/A CURRENT MEDICATION FOR OSTEOPENIA/OSTEOPOROSIS: 08/2022 Started PROLIA # 3 - 08/10/2023 Takes calcium? YES - TUMS 750 MG Takes Vit D? YES - Cholecalciferol, Vitamin D3, 2,000 unit cap Takes Supplements? YES - cyanocobalamin 1,000 mcg 1 Tab daily - Ascorbic Acid (VITAMIN C) 100 mg tablet daily - Vitamin E, dl, acetate, (VITAMIN E) 400 unit 1 capsule daily OSTEOPENIA/OSTEOPOROSIS TREATMENT HISTORY: 08/2022 Started PROLIA - # 3 - 08/10/2023 MAJOR RISK FACTORS FOR OSTEOPOROSIS: High risk condition: YES - Age of menopause: partial Hysterectomy - 52 y.o - Loss of height: 2 in - Fracture(s): C7 (09/2023 CT) - Former quit 40 + years ago - non hodgkin's lymphoma 11/2023 High risk medications: YES - Chemo 12/2023 BONE DENSITY: NEXT DXA DUE: 11/13/2025 11/13/2023 DXA: AXIAL SKELETON [facility] IMPRESSION: THE LOWEST T-SCORE IS -3.6 IN THE LEFT FOREARM 1) DIAGNOSIS (based on BMD alone): OSTEOPOROSIS RESULTS: Right Femoral Neck: 0.566 g/cm2, T-score -2.5, Z-score -1.1 Right Total Hip: 0.656 g/cm2, T-score -2.3, Z-score -1.2 Left Femoral Neck: 0.533 g/cm2, T-score -2.7, Z-score -1.2 Left Total Hip: 0.660 g/cm2, T-score -2.3, Z-score -1.1 Left Forearm, Distal 1/3 of Radius: 0.475 g/cm2, T-score -3.6, Z-score -2.1 FRAX 10 YEAR PROBABILITY OF FRACTURE: Major osteoporotic: 13% Hip Fracture: 2.6% 09/05/2021 DXA: AXIAL SKELETON [facility] GENERAL: feeling well without fatigue, weight loss noted due to HEENT:Negative for frequent or significant headaches, No changes in hearing or vision, no nose bleeds or other nasal problems NECK:Negative for lumps, goiter, pain and significant neck swelling RESPIRATORY: Negative for cough, hemoptysis, wheezing, COPD, dyspnea or shortness of breath CARDIOVASCULAR: Negative for chest pain, leg swelling, hypertension, CHF or palpitations GASTROINTESTINAL: No nausea, vomiting, or diarrhea GENITOURINARY: No history of dysuria, frequency or incontinence COMMUNICATIONS TECH: Negative for abnormal vaginal bleeding, abnormal vaginal discharge MUSCULOSKELETAL: back pain NEUROLOGIC:Negative for focal numbness or weakness, headaches and dizziness or syncope. SKIN:Negative for lesions, rash, and itching PSYCHIATRIC: Negative for sleep disturbance, mood disorder and recent psychosocial stressors. HEMATOLOGIC/LYMPHATIC/IMMUNOLOGIC:Negative for prolonged bleeding, bruising easily or swollen nodes ENDOCRINE: Negative for cold or heat intolerance, polyuria, polydipsia and goiter MEDICAL HISTORY: PAST MEDICAL HISTORY Diagnosis Date De Quervain's disease (radial styloid tenosynovitis) 06/21/2012 Osteoporosis SURGICAL HISTORY: PAST SURGICAL HISTORY Procedure Laterality Date BACK SURGERY HX 08/26/2022 Incision and debridement onset of thoracic wounds, removal of hardware LAPAROSCOPY SURG CHOLECYSTECTOMY 04/05/2009 Cholecystectomy, lap NEUROPLASTY &/TRANSPOS MEDIAN NRV CARPAL TUNNE 06/09/2010 Carpal tunnel decomp, right NEUROPLASTY &/TRANSPOS MEDIAN NRV CARPAL TUNNE 08/06/2012 Carpal tunnel decomp left and DeQuervain's release VAGINAL HYSTERECTOMY UTERUS 250 GM/< 03/12/2001 Hysterectomy, vaginal FAMILY HISTORY: FAMILY HISTORY Problem Relation Age of Onset Breast Cancer Father other (brain tumor) Father Breast Cancer Paternal Grandmother Breast Cancer Paternal Aunt Breast Cancer Paternal Aunt SOCIAL HISTORY: Social History Tobacco Use Smoking status: Former Current packs/day: 0.00 Average packs/day: 0.5 packs/day for 20.0 years (10.0 ttl pk-yrs) Types: Cigarettes Start date: 08/09/1976 Quit date: 08/09/1996 Years since quittin.6 Smokeless tobacco: Former Substance Use Topics Alcohol use: Not Currently Comment: 2 drinks per month Drug use: No CURRENT MEDICATIOS: Current Outpatient Medications on File Prior to Visit Medication Sig calcium Carbonate 300 mg, 750mg, (TUMS) 300 mg (750 mg) chewable tablet Take 1 tablet by mouth oncedaily. gabapentin (NEURONTIN) 300 mg capsule Take 300 mg by mouth two times a day. traZODone (DESYREL) 50 mg tablet sennosides (LAXATIVE ORAL) Take by mouth. oxyCODONE-acetaminophen (PERCOCET) 5-325 mg tablet baclofen 10 mg tablet sulfamethoxazole-trimethoprim (BACTRIM DS) 800-160 mg per tablet Take 1 tablet by mouth once daily. Ascorbic Acid (VITAMIN C) 100 mg tablet Take 100 mg by mouth once daily. Vitamin E, dl, acetate, (VITAMIN E) 400 unit capsule Take 400 Units by mouth once daily. lysine 500 mg tab 500 mg. mirtazapine (REMERON) 30 mg tablet Take 30 mg by mouth daily at bedtime. cyanocobalamin 1,000 mcg Tab Take 1 tablet by mouth once daily. Cholecalciferol, Vitamin D3, 5,000 unit cap Take 2,000 Units by mouth once daily. No current facility-administered medications on file prior to visit. IMAGING: N/A PREVIOUS LABORATORY RESULTS: Latest Ref Rng 09/28/2023 Protein, Total 6.3 - 8.0 g/dL 7.4 Albumin 3.9 - 4.9 g/dL 4.5 Calcium 8.5 - 10.2 mg/dL 9.5 Bilirubin, Total 0.2 - 1.3 mg/dL 0.2 Alkaline Phosphatase 34 - 123 U/L 66 AST 13 - 35 U/L 26 ALT 7 - 38 U/L 20 Glucose 74 - 99 mg/dL 84 BUN 7 - 21 mg/dL 14 Creatinine 0.58 - 0.96 mg/dL 0.68 Sodium 136 - 144 mmol/L 132 (L) Potassium 3.7 - 5.1 mmol/L 4.7 Chloride 98 - 107 mmol/L 101 CO2 22 - 30 mmol/L 21 (L) Anion Gap 8 - 15 mmol/L 10 eGFR >=60 mL/min/1.73m 98 Magnesium 1.7 - 2.3 mg/dL 2.1 PTH, Intact 15 - 65 pg/mL 24 Vitamin D 25 Hydroxy >=30.0 ng/mL 40.5 Phosphorus 2.7 - 4.8 mg/dL 2.8 OBJECTIVE: Physical examination BP 111/72 (BP Site: Right Arm, BP Position: Sitting, BP Cuff Size: Large Adult) Pulse 99 Ht 147cm (4' 9.87) Wt 45.6 kg (100 lb 9.6 oz) SpO2 98% BMI 21.12 kg/m Physical Exam Constitutional: General: She is in acute distress. HENT: Head: Normocephalic. Nose: Nose normal. No congestion. Mouth/Throat: Mouth: Mucous membranes are moist. Pharynx: Oropharynx is clear. Eyes: General: No scleral icterus. Extraocular Movements: Extraocular movements intact. Neck: Vascular: No carotid bruit. Cardiovascular: Rate and Rhythm: Normal rate and regular rhythm. Pulses: Normal pulses. Heart sounds: No murmur heard. No friction rub. No gallop. Pulmonary: Breath sounds: Normal breath sounds. No wheezing or rhonchi. Chest: Chest wall: No tenderness. Abdominal: General: Bowel sounds are normal. Tenderness: There is no abdominal tenderness. Musculoskeletal: General: Tenderness and deformity present. Cervical back: Neck supple. Lymphadenopathy: Cervical: Cervical adenopathy present. Skin: General: Skin is warm. Capillary Refill: Capillary refill takes less than 2 seconds. Neurological: Mental Status: She is alert and oriented to person, place, and time. Back: mild pain to palpation in the LS spine midline Shoulder height position: anterior -Pelvic Tilt: no -Dorsal kyphosis: moderate and appears stable -Lumbar curve:present -Scoliosis:None -Movement: normal -Extremities: No edema -Musculoskeletal: Positive findings: R scapula > L scapula, numbness over the cervical and thoracic area of the spine ASSESSMENT/PLAN: 1. Age-related osteoporosis without current pathological fracture - ICD9: 733.01, ICD10: M81.0 (primary diagnosis) 2. Low bone mass - ICD9: 733.90, ICD10: M85.80 3. Osteopenia of multiple sites - ICD9: 733.90, ICD10: M85.89 - Reviewed the need for Calcium and Vitamin D supplements and weight bearing exercise as tolerated - Stop TUMS - Start Calcium supplement - recommended dose 1,200 mg daily - Reviewed labs - Reviewed DXA - Right Femoral Neck: T-score -2.5, Left Femoral Neck:T-score -2.7, Left Forearm, Distal 1/3 of Radius: T-score -3.6 - FRAX: Major osteoporotic: 13% & Hip Fracture: 2.6% - We can not compare the dxa results, due to different locations - We discuss risk, benefits, side effects and administrations of treatment options available for fracture prevention with Anabolic agents teriparatide (Forteo), abaloparatide (Tymos) or anti-remodeling medicines romosozumab (Evenity). - Patient was on Prolia, # 3 injection in July. - She was scheduled in February in the PCP office for the the 4th dose, which was hold by PCP due toher new dx of Non-Hodgkin lymphoma - Will contact the Cancer Center at [phone] to see if OK to start tx for OP now or to wait until she is done. - Patient denies treatment with an anabolic - I can't inject my self everyday - She prefers Evenity - Location [facility], after I will speak with her oncologist. 4. Vitamin D deficiency - ICD9: 268.9, ICD10: E55.9 - Continue with Vit D3, 2,000 international unit(s) daily 5. Non-Hodgkin lymphoma in adult (HCC) - ICD9: 202.80, ICD10: C85.90 - Dx in 11/2023 - Started chemo in 12/2023 - She is going at [facility] [phone] for treatment and to f/u with her oncologist. - She will call there today and request her files to be faxed to us. - Will decide on treatment after will speak with her oncologist. We also discuss the importance of diet and vitamin supplementation, lifestyle modifications, safety/fall precautions and regular weight bearing exercise as it pertains to bone health and fracture prevention. Discussed the above with the patient using shared decision making. Different diagnosis and implications of them including short term and terminal computer operator complications and impact on health and survival werediscussed with patient. Different and alternative modalities of treatment was discussed. Potential side effects of medication discussed and patient was told not to stop any of the prescribed medication unless recommended by physician. Patient's questions were answered and patient is agreeable in agreement with the diagnostic and treatment plans. The following portions of the patient's history were reviewed, confirmed, and updated as necessary:allergies, VSs, current medications, past family history, past medical history, past social history, past surgical history, and problem list, obtained by others. The patient has my card, and knows how to reach my office. I thank you for the opportunity to participate in the care of Mary Valiente Please do not hesitate to contact me if you have further concerns or questions. FOLLOW UP: in 6 mo ARTHUR Arteaga, AGP-MANAGER NICU [facility] End[facility] - [place] Any part of this document that has been added/copied & pasted from other documents has been reviewed for accuracy and updated as appropriate at the time of the patient encounter documented in this encounterCity Hospital02-17-2025 NoteHNO ID: [id number] Author: VALORIE OH APRN.CNP Service: ? Author Type: Nurse Practitioner Type: Progress Notes Filed: 05/05/2024 17:00 Note Text: ENDOCRINE OSTEOPOROSIS FOLLOW UP SUBJECTIVE: LAST SEEN: 09/28/2023 INITIAL EVALUATION:09/28/2023 TIMELINE: Diagnosed with osteopenia/osteoporosis 09/05/2021 Establish care with Endocrinology 09/28/2023 Patient seen at the request of / referral from: Rosio Butterfield I, MD [facility] CHIEF COMPLAINT: Patient presents for management of her osteoporosis History of Present Illness Mary Valiente is a 62 year old female who presents in referral for my opinion regarding evaluation and management of osteoporosis. Patient was referred by Rosio Butterfield I, MD [facility]. Patient stated that she has screws loose in her back and she has a lot of pain because of that. She is not felling good at all. [facility]. Patient is on treatment with Prolia injection for the past 1.5 years started by her PCP. She had 3 doses so far, tolerates medication well. Last dose 08/10/2023. Never had any fracture in the past. She has a new compression fracture on C7 - Multiple thoracolumbar spinal fusions. FOLLOW UP VISIT: 03/28/2024 Patient seen in follow up today Mary Valiente 63 year old who presents today for osteoporosis management. She is on Prolia since 2022 given at her PCP office. In November 2023 she was diagnosed with non hodgkin's lymphoma. She started treatment with chemo in December at [facility]. Also she stated that her daughter was dx with uterine cancer stage IV, and she can't have hysterectomy and they said she might have only 2 years to live. She is 41 years old. Patient stated that she is very depressed, and she is crying. She has a port on right chest for chemo. She will have chemo for 9 months, monthly. Denies recent falls or fractures. CANCER CENTER PHONE NUMBER: [phone] Upcoming dental procedures planned? NO Participating in weight bearing exercise? NO Last Fall: N/A Ambulatory assistance: N/A CURRENT MEDICATION FOR OSTEOPENIA/OSTEOPOROSIS: 08/2022 Started PROLIA # 3 - 08/10/2023 Takes calcium? YES - TUMS 750 MG Takes Vit D? YES - Cholecalciferol, Vitamin D3, 2,000 unit cap Takes Supplements? YES - cyanocobalamin 1,000 mcg 1 Tab daily - Ascorbic Acid (VITAMIN C) 100 mg tablet daily - Vitamin E, dl, acetate, (VITAMIN E) 400 unit 1 capsule daily OSTEOPENIA/OSTEOPOROSIS TREATMENT HISTORY: 08/2022 Started PROLIA - # 3 - 08/10/2023 MAJOR RISK FACTORS FOR OSTEOPOROSIS: High risk condition: YES - Age of menopause: partial Hysterectomy - 52 y.o - Loss of height: 2 in - Fracture(s): C7 (09/2023 CT) - Former quit 40 + years ago - non hodgkin's lymphoma 11/2023 High risk medications: YES - Chemo 12/2023 BONE DENSITY: NEXT DXA DUE: 11/13/2025 11/13/2023 DXA: AXIAL SKELETON [facility] IMPRESSION: THE LOWEST T-SCORE IS -3.6 IN THE LEFT FOREARM 1) DIAGNOSIS (based on BMD alone): OSTEOPOROSIS RESULTS: Right Femoral Neck: 0.566 g/cm2, T-score -2.5, Z-score -1.1 Right Total Hip: 0.656 g/cm2, T-score -2.3, Z-score -1.2 Left Femoral Neck: 0.533 g/cm2, T-score -2.7, Z-score -1.2 Left Total Hip: 0.660 g/cm2, T-score -2.3, Z-score -1.1 Left Forearm, Distal 1/3 of Radius: 0.475 g/cm2, T-score -3.6, Z-score -2.1 FRAX 10 YEAR PROBABILITY OF FRACTURE: Major osteoporotic: 13% Hip Fracture: 2.6% 09/05/2021 DXA: AXIAL SKELETON [facility] Systems GENERAL: feeling well without fatigue, weight loss noted due to HEENT:Negative for frequent or significant headaches, No changes in hearing or vision, no nose bleeds or other nasal problems NECK:Negative for lumps, goiter, pain and significant neck swelling RESPIRATORY: Negative for cough, hemoptysis, wheezing, COPD, dyspnea or shortness of breath CARDIOVASCULAR: Negative for chest pain, leg swelling, hypertension, CHF or palpitations GASTROINTESTINAL: No nausea, vomiting, or diarrhea GENITOURINARY: No history of dysuria, frequency or incontinence COMMUNICATIONS TECH: Negative for abnormal vaginal bleeding, abnormal vaginal discharge MUSCULOSKELETAL: back pain NEUROLOGIC:Negative for focal numbness or weakness, headaches and dizziness or syncope. SKIN:Negative for lesions, rash, and itching PSYCHIATRIC: Negative for sleep disturbance, mood disorder and recent psychosocial stressors. HEMATOLOGIC/LYMPHATIC/IMMUNOLOGIC:Negative for prolonged bleeding, bruising easily or swollen nodes ENDOCRINE: Negative for cold or heat intolerance, polyuria, polydipsia and goiter MEDICAL HISTORY: PAST MEDICAL HISTORY Diagnosis Date De Quervain's disease (radial styloid tenosynovitis) 06/21/2012 Osteoporosis SURGICAL HISTORY: PAST SURGICAL HISTORY Procedure Laterality Date BACK SURGERY HX 08/26/2022 Incision and debridement onset of thoracic wou (more content not included)... [facility]01-28-2025 Evaluation note* Diagnosis Onset Date Resolution Status Admit Date Chemotherapy management, encounter for acute March 08 9:03am Encounter for monoclonal antibody treatment for malignancy acute March 08 9:03am Iron deficiency anemia acute Ja nuary 2024 9:03am Oral candidiasis acute March 08, 2024 9:03am Follicular lymphoma grade I resolved March 08, 2024 9:03am Chemotherapy management, encounter for acute April 05 9:14am Encounter for monoclonal antibody treatment for malignancy acute April 05 9:14am Iron deficiency anemia acute Fe bruary 2024 9:14am Follicular lymphoma grade I resolved April 05, 2024 9:14am Chemotherapy management, encounter for acute May 03, 2024 8:50am Encounter for monoclonal antibody treatment for malignancy acute May 03, 2024 8:50am Follicular lymphoma grade I resolved May 03, 2024 8:50am Chemotherapy management, encounter for acute May 31, 2024 9:33am Encounter for monoclonal antibody treatment for malignancy acute May 31, 2024 9:33am Follicular lymphoma grade I resolved May 31, 2024 9:33am Follicular lymphoma grade I resolved June 29, 2024 9:00am [employer] Work Phone: 1(127) 190-528111-25-2024 [facility]10-04-2024 History of Present illness Narrative* Jamie Covarrubias RT(R) - 11/13/2023 12:30 PM EDT Radiology Service Progress Note PATIENT NAME: Mary Valiente DATE OF SERVICE: November 13, 2023 TIME: 12:33 PM PATIENT IDENTITY VERIFICATION COMPLETED USING TWO (2) IDENTIFIERS: Name and Date of confirmedby patient verbally. FALL SCREENING: Has the patient had 2 falls in the last year or 1 fall with injury or currently using an Ambulatory Assistive Device (Walker, Cane, Wheelchair, Crutches, etc.)? No PATIENT GENDER DATA: Female. status: : No status: NO. PATIENT RELEVANT IMPLANT DATA REVIEWED: Not Applicable PATIENT PRESENTS WITH AN IMPLANTABLE OR ATTACHED MEDICAL CENTER REPRESENTATIVE: No RADIOLOGY DEPARTMENT: Bone Density PERIPHERAL IV DATA: Not applicable SIGNED BY: RT Ashok(Regina) November 13, 2023 12:33 PM documented in this encounterCity Hospital10-04-2024 NoteHNO ID: [id number] Author: JAMIE COVARRUBIAS RT(R) Service: ? Author Type: Technologist Type: Progress Notes Filed: 11/13/2023 13:12 Note Text: Radiology Service Progress Note PATIENT NAME: Mary Valiente DATE OF SERVICE: November 13, 2023 TIME: 12:33 PM PATIENT IDENTITY VERIFICATION COMPLETED USING TWO (2) IDENTIFIERS: Name and Date of confirmed by patient verbally. FALL SCREENING: Has the patient had 2 falls in the last year or 1 fall with injury or currently using an Ambulatory Assistive Device (Walker, Cane, Wheelchair, Crutches, etc.)? No PATIENT GENDER DATA: Female. status: : No status: NO. PATIENT RELEVANT IMPLANT DATA REVIEWED: Not Applicable PATIENT PRESENTS WITH AN IMPLANTABLE OR ATTACHED MEDICAL CENTER REPRESENTATIVE: No RADIOLOGY DEPARTMENT: Bone Density PERIPHERAL IV DATA: Not applicable SIGNED BY: RT Ashok(R) November 13, 2023 12:33 [facility]08-21-2024 Telephone encounter Note* Telephone Encounter - Salena Marie RN - 09/30/2023 4:09 PM EDT Patient notified. Salena Marie RN [facility] Work Phone: 1(485) 237-993508-21-2024 Miscellaneous Notes* Telephone Encounter - Salena Marie RN - 09/30/2023 4:09 PM EDT Patient notified. Salena Marie RN * Telephone Encounter - Esteban Joel DO - 09/30/2023 4:06 PM EDT Chart reviewed. Previously on chronic cefadroxil suppression then changed to trimethoprim- sulfamethoxazole daily since 11-07-2022. Recommend: Hold antibiotic for a few days and observe Call the office back next week and see how she does AKL * Telephone Encounter - Salena Marie RN - 09/29/2023 1:20 PM EDT Patient called office to report epigastric stomach pain, stomach upset, nausea, occasional vomitingand poor appetite over the past 2-3 months. Patient believes it could be related to her antibiotic and asked if there is a different one she can try. Please advise. Patient is scheduled to see her PCP on 09/30/23. I have also advised her to report the symptoms to her PCP. Salena Marie RN documented in this encounterCity Hospital08-21-2024 Telephone encounter Note * Telephone Encounter - Esteban Joel DO - 09/30/2023 4:06 PM EDT Chart reviewed. Previously on chronic cefadroxil suppression then changed to trimethoprim- sulfamethoxazole daily since 11-07-2022. Recommend: Hold antibiotic for a few days and observe Call the office back next week and see how she does [facility]-20-[facility] Telephone encounter Note* Telephone Encounter - Salena Marie RN - 09/29/2023 1:20 PM EDT Patient called office to report epigastric stomach pain, stomach upset, nausea, occasional vomitingand poor appetite over the past 2-3 months. Patient believes it could be related to her antibiotic and asked if there is a different one she can try. Please advise. Patient is scheduled to see her PCP on 09/30/23. I have also advised her to report the symptoms to her PCP. Salena Marie RN [facility]08-19-[facility]24 Telephone encounter Note* Telephone Encounter - Jhoana Judge PSS - 09/28/2023 1:11 PM EDT Referral Coordination Patient scheduled for:DEXA Location:[place] Date: 11-13-23 Time:12:30 Prep for test:no calcium or multi vitamin 24 hr prior to scan Patient informed: Spoke to patient and she voiced understanding Not wed this week,not before MALINI Martinez September 28, 2023 1:11 PM [facility]08-19-[facility]24 Miscellaneous Notes* Telephone Encounter - Jhoana Judge PSS - 09/28/2023 1:11 PM EDT Referral Coordination Patient scheduled for:DEXA Location:[place] Date: 11-13-23 Time:12:30 Prep for test:no calcium or multi vitamin 24 hr prior to scan Patient informed: Spoke to patient and she voiced understanding Not wed this week,not before MALINI Martinez September 28, 2023 1:11 PM * Telephone Encounter - Valorie Oh APRN.CNP - 09/28/2023 10:23 AM EDT Jack Jacksonna, Please schedule her for dxa at [facility]. Thank you Valorie Oh, MSN, AGP-[facility] Endocrinology [facility] documented in this encounterCity Hospital08-19-2024 Telephone encounter Note * Telephone Encounter - Juli Rush LPN - 09/28/2023 10:57 AM EDT Spoke to pt's pcp office and was told pt had last prolia injection on 08/10/2023 Juli Rush LPN [facility]08-19-2024 Miscellaneous Notes* Telephone Encounter - uJli Rush LPN - 09/28/2023 10:57 AM EDT Spoke to pt's pcp office and was told pt had last prolia injection on 08/10/2023 Juli Rush LPN * Telephone Encounter - Valorie Oh APRN.CNP - 09/28/2023 10:43 AM EDT Nurses, Please call the PCP's office and ask when patient had the Prolia injection ( last one 2.5 mo ago per pt). Please let me know. Thank you ARTHUR Arteaga, [facility] Endocrinology [facility] documented in this encounterCity Hospital08-19-2024 Telephone encounter Note * Telephone Encounter - Valorie Oh APRN.CNP - 09/28/2023 10:43 AM EDT Nurses, Please call the PCP's office and ask when patient had the Prolia injection ( last one 2.5 mo ago per pt). Please let me know. Thank you ARTHUR Arteaga, [facility] Work Phone: [phone] Telephone encounter Note* Telephone Encounter - Valorie Oh APRN.CNP - 09/28/2023 10:23 AM EDT Jack Ely, Please schedule her for dxa at [facility]. Thank you ARTHUR Arteaga, [facility] Work Phone: [phone] Instructions* Patient Instructions* Valorie Oh APRN.CNP - 09/28/2023 10:11 AM EDT Decrease coffee to no more than 10 oz per day Stop drinking soda Increase water intake to 64 oz daily DXA order Labs order F/U 1 week after dxa BONE MINERAL DENSITY PATIENT INSTRUCTIONS Bone mineral density testing measures the amount of calcium in certain parts of your bones. This information determines how strong your bones are. The test is used to detect osteoporosis, a disease in which the bone's mineral content and density are low, increasing a person's risk of fractures. Thelumbar spine (lower back) and the hip are the skeletal sites usually examined. For the test, remember that: 1. You cannot take this test if you are . 2. Eat a normal diet on the day of the test. 3. Take your medications as you normally would. 4. DO NOT take calcium supplements (such as Tums) for 24 hours before the test. 5. On the day of the test, leave valuables (jewelry or credit cards) at home. 6. The test should be performed prior to oral, rectal or IV contrast studies, or at least 7 days after any of these studies. For the test, you may be asked to wear a hospital gown. You will lie on your back, on a padded table, in a comfortable position. Generally, you can resume your usual activities immediately. documented in this encounterCity Hospital08-19-2024 History of Present illness Narrative* Valorie Oh APRN.CNP - 09/28/2023 10:00 AM EDT Images from the original note were not included. ENDOCRINE REFERRAL Osteoporosis and Metabolic Bone Disease New Visit Date of Evaluation:09/28/2023 Patient seen at the request of / referral from:Rosio Butterfield I, MD [facility] RE: Osteoporosis, unspecified osteoporosis type, unspecified pathological fracture presence [M81.0] Reason for Exam Dx: Osteoporosis, unspecified osteoporosis type, unspecified pathological fracture presence [M81.0 (ICD-10-CM)] Comments: Patient has known hx of osteoporosis, on prolia injections managed by PCP Dr. Marhsall since 2021 (unable to manage forteo) -will need treated with forteo 3 months prior to to undertaking surgical intervention -management of osteoporosis I will communicate my recommendations and findings via EPIC CC: Bone Health evaluation and counseling. HPI: Mary Valiente is a 62 year old female who presents in referral for my opinion regarding evaluation and management of osteoporosis. Patient was referred by Rosio Butterfield I, MD [facility]. Patient stated that she has screws loose in her back and she has a lot of pain because of that. She is not felling good at all. [facility]. Patient is on treatment with Prolia injection for the past 1.5 years started by her PCP. She had 3 doses so far, tolerates medication well. Last dose 08/10/2023. Never had any fracture in the past. Shehas a new compression fracture on C7. NEXT DXA DUE: NOW 09/05/2021 DXA: AXIAL SKELETON [facility] FRAX 10 YEAR PROBABILITY OF FRACTURE: Major osteoporotic: Hip Fracture: OSTEOPOROSIS TREATMENT HISTORY: 08/2022 Started PROLIA - # 3 - 08/10/2023 RISK FACTORS FOR OSTEOPOROSIS: Age of menarche: 11 Age of menopause: partial Hysterectomy - 52 Childbearin Loss of height: YES - 2 in Ever treated for OP: YES - Prolia Family History of Osteoporosis: Don't know Takes calcium? YES - TUMS 750 MG Takes Vit D? YES - Cholecalciferol, Vitamin D3, 2,000 unit cap Takes Supplements? YES - cyanocobalamin 1,000 mcg 1 Tab daily - Ascorbic Acid (VITAMIN C) 100 mg tablet daily - Vitamin E, dl, acetate, (VITAMIN E) 400 unit 1 capsule daily High risk condition: YES - History of fracture: YES - 09/2023 CT - C7 - History of heart attack: NO - History of stroke or seizure: NO - History of kidney stones: NO - Chronic kidney disease: NO - Chronic liver disease: NO - History of cancers: NO - Multiple myeloma: NO - History of Paget's disease: NO - Chronic obstructive pulmonary disease (COPD) and asthma: NO - Autoimmune disease or Rheumatoid arthritis: NO - Endocrine disorders: NO - including hypogonadal states (diabetes, Grimstead s syndrome, Hyperthyroidism, hyperparathyroidism,De Los Santos/Klinefelter syndrome, amenorrhea) - Nutritional/gastrointestinal problems: NO - malabsorption - (Crohn s and ulcerative colitis), lactose intolerance, inflammatory bowel, celiacdisease, Bariatric surgery) - Haematological disorders: NO - thalassemia, sickle-cell anemia, autoimmune hemolytic anemia or Hereditary Hemochromatosis (high level of iron) - Psychophysiological disorders and mental illness: NO - (dementia, anorexia nervosa/bulimia) High risk medications: NO - HRT (Estrogen) use: NO - Steroids use: NO - Chemotherapy, or radiation therapy: NO - [place] use: NO - Thiazide use: NO Dental Concerns: Has all own teeth Upcoming dental procedures planned? NO Vision checks up to date - Yes Social History: Smoker history: Former quit 40 years ago Alcohol abuse: NO Beverages: Coffee 2 cups (6 oz per cup), Tea no, Soda trev ean little cans Water: 6 oz per day Diet: Dairy no, Greens 1 - 2 times per week, Protein daily - Lactose or gluten intolerance: NO Exercise: NO Frequent falls: NO Last Fall: N/A Ambulatory assistance: NO Occupation: Retired Living situation: , dog 80 lbs REVIEW OF SYSTEMS GENERAL: Weight loss HEENT: Negative for frequent or significant headaches, No changes in hearing or vision, no nose bleeds or other nasal problems ENDO/NECK: Denies jaw pain, no difficulty swallowing;Negative for lumps, goiter, pain and significant neck swelling CARDIOVASCULAR: Negative for chest pain, leg swelling, hypertension, CHF or palpitations GI: Positive for abdominal discomfort , nausea : No history of dysuria, frequency or incontinence NEPHROLITHIASIS:NO ENDO/COMMUNICATIONS TECH: Negative for abnormal vaginal bleeding, abnormal vaginal discharge. ENDO/MUSCULOSKELETAL/BONE: NO back pain FRACTURES: C7 SKIN: Negative for lesions, rash, and itching PSYCH: HEMATOLOGY/LYMPHOLOGY Negative for prolonged bleeding, bruising easily or swollen nodes NEURO: No history of headaches, syncope, paralysis, seizures or tremors Risk Factors for Osteoporosis and Fracture: 62 y.o, Race/ethnicity (White, Black, , or , Americans), Female, Lack of physical activity, Poor nutrition, Vitamin D deficiency, Low dietary calcium intake, Personal history of fracturesince age 39, Loss of height of one inch or more, Postmenopausal, and Weight of less than 127 pounds as an adult Risk Factors for Falls - Advanced age: 62 - Last known fall: N/A - Mobility: Independent - Mental status: intact - Communication / Sensory: clear - Behavioral: appropriate MEDICAL HISTORY: PAST MEDICAL HISTORY 06/21/2012: De Quervain's disease (radial styloid tenosynovitis) SURGICAL HISTORY: PAST SURGICAL HISTORY 08/26/2022: BACK SURGERY HX Comment: Incision and debridement onset of thoracic wounds, removal of hardware 04/05/2009: LAPAROSCOPY SURG CHOLECYSTECTOMY Comment: Cholecystectomy, lap 06/09/2010: NEUROPLASTY &/TRANSPOS MEDIAN NRV CARPAL TUNNE Comment: Carpal tunnel decomp, right 08/06/2012: NEUROPLASTY &/TRANSPOS MEDIAN NRV CARPAL TUNNE Comment: Carpal tunnel decomp left and DeQuervain's release 03/12/2001: VAGINAL HYSTERECTOMY UTERUS 250 GM/< Comment: Hysterectomy, vaginal FAMILY HISTORY: Family History Problem Relation Age of Onset Breast Cancer Father other (brain tumor) Father Breast Cancer Paternal Grandmother Breast Cancer Paternal Aunt Breast Cancer Paternal Aunt SOCIAL HISTORY: Social History Marital status: Spouse name: Years of education: Number of children: Social History Main Topics Drug use: Unknown DXA:09/05/2021 FRAX Score 10 YEAR PROBABILITY OF FRACTURE: Major osteoporotic: Hip Fracture: IMAGIN09/14/2023 CT THORACIC SPINE WO IVCON IMPRESSION: Age indeterminate C7 superior endplate compression deformity is new from 08/25/2022. No retropulsion. Stable extensive thoracic and upper lumbar spine posterior fusion. No hardware failure. No acute findings in the thoracic spine. Degenerative changes. Mild nodular opacities in the right upper lobe may represent infectious/inflammatory changes. Cervical Anatomic Variant: None. Assume 7 cervical vertebrae with counting from the craniocervical junction. Anatomic Thoracic/Lumbar Variant: Assume first normal thoracic rib is the T1 level. 09/08/2023 XR SCOLIOSIS PA STAND/LAT 2V IMPRESSION: Stable postoperative and chronic degenerative change. No significant scoliosis. Chronic wedging of T5, unchanged. LABS:N/A Current Medications Current Outpatient Medications on File Prior to Visit Medication Sig gabapentin (NEURONTIN) 300 mg capsule Take 300 mg by mouth two times a day. traZODone (DESYREL) 50 mg tablet sennosides (LAXATIVE ORAL) Take by mouth. oxyCODONE-acetaminophen (PERCOCET) 5-325 mg tablet baclofen 10 mg tablet sulfamethoxazole-trimethoprim (BACTRIM DS) 800-160 mg per tablet Take 1 tablet by mouth once daily. CALCIUM ORAL Take 1 capsule by mouth once daily. Ascorbic Acid (VITAMIN C) 100 mg tablet Take 100 mg by mouth once daily. Vitamin E, dl, acetate, (VITAMIN E) 400 unit capsule Take 400 Units by mouth once daily. lysine 500 mg tab 500 mg. mirtazapine (REMERON) 30 mg tablet Take 30 mg by mouth daily at bedtime. cyanocobalamin 1,000 mcg Tab Take 1 tablet by mouth once daily. Cholecalciferol, Vitamin D3, 5,000 unit cap Take 1 capsule by mouth once daily. No current facility-administered medications on file prior to visit. PHYSICAL EXAMINATION: BP 125/73 (BP Site: Right Arm, BP Position: Sitting, BP Cuff Size: Small Adult) Pulse 61 Ht 146.7 cm (4' 9.75) Wt 50.3 kg (111 lb) SpO2 98% BMI 23.40 kg/m General appearance: Thin, well appearing, alert, and in no acute distress Head: normal Eyes: Anicteric sclera. Pupils are equally round and reactive to light. Extraocular movements are intact. Neck: Supple, no adenopathy; thyroid symmetric, normal size, no bruits Heart: RRR Lungs: CTAB Back: tender over iliac crest bilateral -Shoulder height position: anterior -Pelvic Tilt:no -Dorsal kyphosis: none -Lumbar curve: present -Scoliosis: none noted -Movement: Normal upon exam Extremities: Normal, no edema Musculoskeletal: Positive findings: R scapula > L scapula, numbness over the cervical and thoracic area of the spine Neuro: Gait normal. Sensation grossly intact. ASSESSMENT/PLAN: 1. Age-related osteoporosis with current pathological fracture with routine healing, subsequent encounter - ICD9: [id number], ICD10: M80.00XD (primary diagnosis) 2. Encounter for screening for osteoporosis - ICD9: V82.81, ICD10: Z13.820 3. Asymptomatic postmenopausal status - ICD9: V49.81, ICD10: Z78.0 - Reviewed the need for Calcium and Vitamin D supplements and weight bearing exercise as tolerated - Patient on treatment with Prolia for the past 18 months, started by PCP. Last injection 2.5 mo ago - Here to start treatment with Forteo, so she can have the spine surgery - Last dxa 08/2021 outside [facility] - COMPREHENSIVE METABOLIC PANEL - MAGNESIUM - PTH INTACT - PHOSPHORUS INORGANIC - DXA-AXIAL SKELETON WITH VFA - BD DXA TRABECULAR BONE SCORE (TBS) - DXA-FOREARM SKELETON - She prefers [place] location for dxa 4. Vitamin D deficiency - ICD9: 268.9, ICD10: E55.9 - Continue with Vit D3, 2,000 international unit(s) daily - VITAMIN D 25 HYDROXY We also discuss the importance of diet and vitamin supplementation, lifestyle modifications, safety/fall precautions and regular weight bearing exercise as it pertains to bone health and fracture prevention. Discussed the above with the patient using shared decision making. Different diagnosis and implications of them including short term and terminal computer operator complications and impact on health and survival werediscussed with patient. Different and alternative modalities of treatment was discussed. Potential side effects of medication discussed and patient was told not to stop any of the prescribed medication unless recommended by physician. Patient's questions were answered and patient is agreeable in agreement with the diagnostic and treatment plans. The following portions of the patient's history were reviewed, confirmed, and updated as necessary:allergies, current medications, VSs, past family history, past medical history, past social history, past surgical history, and problem list, obtained by others. I thank you for the opportunity to participate in the care of Mary Valiente Please do not hesitate to contact me if you have further concerns or questions. FOLLOW UP: 2 mo or 1 week after dxa Valorie Oh APRN.CNP Any part of this document that has been added/copied & pasted from other documents has been reviewed for accuracy and updated as appropriate at the time of the patient encounter ADDENDUM 09/28/2023 at 1422 TE Spoke to pt's pcp office and was told pt had last prolia injection on 08/10/2023 SADIE Galvan, MSN, AGP-MANAGER [facility] Endocrinology - [place] documented in this encounterCity Hospital08-19-2024 NoteHNO ID: [id number] Author: VALORIE OH APRN.CNP Service: ? Author Type: Nurse Practitioner Type: Progress Notes Filed: 11/17/2023 14:08 Note Text: ENDOCRINE REFERRAL Osteoporosis and Metabolic Bone Disease New Visit Date of Evaluation:09/28/2023 Patient seen at the request of / referral from:Rosio Butterfield I, MD [facility] RE: Osteoporosis, unspecified osteoporosis type, unspecified pathological fracture presence [M81.0] Reason for Exam Dx: Osteoporosis, unspecified osteoporosis type, unspecified pathological fracture presence [M81.0 (ICD-10-CM)] Comments: Patient has known hx of osteoporosis, on prolia injections managed by PCP Dr. Marshall since 2021 (unable to manage forteo) -will need treated with forteo 3 months prior to to undertaking surgical intervention -management of osteoporosis I will communicate my recommendations and findings via Udorse CC: Bone Health evaluation and counseling. HPI: Mary Valiente is a 62 year old female who presents in referral for my opinion regarding evaluation and management of osteoporosis. Patient was referred by Rosio Butterfield I, MD [facility]. Patient stated that she has screws loose in her back and she has a lot of pain because of that. She is not felling good at all. [facility]. Patient is on treatment with Prolia injection for the past 1.5 years started by her PCP. She had 3 doses so far, tolerates medication well. Last dose 08/10/2023. Never had any fracture in the past. She has a new compression fracture on C7. NEXT DXA DUE: NOW 09/05/2021 DXA: AXIAL SKELETON [facility] FRAX 10 YEAR PROBABILITY OF FRACTURE: Major osteoporotic: Hip Fracture: OSTEOPOROSIS TREATMENT HISTORY: 08/2022 Started PROLIA - # 3 - 08/10/2023 RISK FACTORS FOR OSTEOPOROSIS: Age of menarche: 11 Age of menopause: partial Hysterectomy - 52 Childbearin Loss of height: YES - 2 in Ever treated for OP: YES - Prolia Family History of Osteoporosis: Don't know Takes calcium? YES - TUMS 750 MG Takes Vit D? YES - Cholecalciferol, Vitamin D3, 2,000 unit cap Takes Supplements? YES - cyanocobalamin 1,000 mcg 1 Tab daily - Ascorbic Acid (VITAMIN C) 100 mg tablet daily - Vitamin E, dl, acetate, (VITAMIN E) 400 unit 1 capsule daily High risk condition: YES - History of fracture: YES - 09/2023 CT - C7 - History of heart attack: NO - History of stroke or seizure: NO - History of kidney stones: NO - Chronic kidney disease: NO - Chronic liver disease: NO - History of cancers: NO - Multiple myeloma: NO - History of Paget's disease: NO - Chronic obstructive pulmonary disease (COPD) and asthma: NO - Autoimmune disease or Rheumatoid arthritis: NO - Endocrine disorders: NO - including hypogonadal states (diabetes, Grimstead?s syndrome, Hyperthyroidism, hyperparathyroidism, De Los Santos/Klinefelter syndrome, amenorrhea) - Nutritional/gastrointestinal problems: NO - malabsorption - (Crohn?s and ulcerative colitis), lactose intolerance, inflammatory bowel, celiac disease, Bariatric surgery) - Haematological disorders: NO - thalassemia, sickle-cell anemia, autoimmune hemolytic anemia or Hereditary Hemochromatosis (high level of iron) - Psychophysiological disorders and mental illness: NO - (dementia, anorexia nervosa/bulimia) High risk medications: NO - HRT (Estrogen) use: NO - Steroids use: NO - Chemotherapy, or radiation therapy: NO - [place] use: NO - Thiazide use: NO Dental Concerns: Has all own teeth Upcoming dental procedures planned? NO Vision checks up to date - Yes Social History: Smoker history: Former quit 40 years ago Alcohol abuse: NO Beverages: Coffee 2 cups (6 oz per cup), Tea no, Soda trev ean little cans Water: 6 oz per day Diet: Dairy no, Greens 1 - 2 times per week, Protein daily - Lactose or gluten intolerance: NO Exercise: NO Frequent falls: NO Last Fall: N/A Ambulatory assistance: NO Occupation: Retired Living situation: , dog 80 lbs REVIEW OF SYSTEMS GENERAL: Weight loss HEENT: Negative for frequent or significant headaches, No changes in hearing or vision, no nose bleeds or other nasal problems ENDO/NECK: Denies jaw pain, no difficulty swallowing;Negative for lumps, goiter, pain and significant neck swelling CARDIOVASCULAR: Negative for chest pain, leg swelling, hypertension, CHF or palpitations GI: Positive for abdominal discomfort , nausea : No history of dysuria, frequency or incontinence NEPHROLITHIASIS:NO ENDO/COMMUNICATIONS TECH: Negative for abnormal vaginal bleeding, abnormal vaginal discharge. ENDO/MUS (more content not included)...[facility]08-15-2024 Telephone encounter Note* Telephone Encounter - Tyler Epstein RN - 09/24/2023 10:36 AM EDT I contacted the patient and informed her that we contacted her pain management office who confirmedthat Dr. Cardoso does perform RFAs. She tells me she has upcoming visit with him this week and will discuss. Let her know I faxed over our office note with recommendations. We also discussed referral to endocrinology for management of osteoporosis switch forteo. We again discussed she would need to be on foreo for at least 3 months pre operatively. She was agreeable. Consult placed. I have asked her to contact me when she is scheduled with endocrinology so that she does not get lost to follow up. She understands. Tyler Epstein RN [facility] Miscellaneous Notes* Telephone Encounter - Tyler Epstein RN - 09/24/2023 10:36 AM EDT I contacted the patient and informed her that we contacted her pain management office who confirmedthat Dr. Cardoso does perform RFAs. She tells me she has upcoming visit with him this week and will discuss. Let her know I faxed over our office note with recommendations. We also discussed referral to endocrinology for management of osteoporosis switch forteo. We again discussed she would need to be on foreo for at least 3 months pre operatively. She was agreeable. Consult placed. I have asked her to contact me when she is scheduled with endocrinology so that she does not get lost to follow up. She understands. Tyler Epstein RN documented in this encounterCity Hospital08-14-2024 Telephone encounter Note * Telephone Encounter - Tiffanie Shah RN - 09/23/2023 9:50 AM EDT Spoke with Concepcion ([phone]) from Dr. Marshall's office. She stated that Dr. Marshall does not usuallyprescribe forteo and was not sure how this would work with insurance. Usually they refer to endocrinology for this. She is currently on prolia. I told her it looks like Dr. Butterfield recommended 3 months of forteo prior to surgery. I told her I would make Dr. Butterfield's team aware and we would get back to them on the plan going forward for patient. Concepcion stated that she would like us to call her back with plan so they are updated. Tiffanie Shah RN [facility]08-[facility] Miscellaneous Notes* Telephone Encounter - Tiffanie Shah RN - 09/23/2023 9:50 AM EDT Spoke with Concepcion ([phone]) from Dr. Marshall's office. She stated that Dr. Marshall does not usuallyprescribe forteo and was not sure how this would work with insurance. Usually they refer to endocrinology for this. She is currently on prolia. I told her it looks like Dr. Butterfield recommended 3 months of forteo prior to surgery. I told her I would make Dr. Butterfield's team aware and we would get back to them on the plan going forward for patient. Concepcion stated that she would like us to call her back with plan so they are updated. Tiffanie Shah RN documented in this encounterCity Hospital08-13-2024 Telephone encounter Note * Telephone Encounter - Tyler Epstein RN - 09/22/2023 12:56 PM EDT Received a voicemail from Concepcion with Dr. Marshall's office. [phone] Attempted to call back and there was no answer. LVM asking for call back. Tyler Epstein RN [facility]08-[facility] Miscellaneous Notes* Telephone Encounter - Tyler Epstein RN - 09/22/2023 12:56 PM EDT Received a voicemail from Concepcion with Dr. Marshall's office. [phone] Attempted to call back and there was no answer. LVM asking for call back. Tyler Epstein RN documented in this encounterCity Hospital08-12-2024 History of Present illness Narrative* Rosio Butterfield I, MD - 09/21/2023 2:45 PM EDT Images from the original note were not included. NEUROSURGERY TELEPHONE VISIT PROGRESS NOTE Chair, Clinical Neurosciences Director, Spinal Neurosurgery Rosio Butterfield MD This is a telephone encounter initiated for an established patient, parent or guardian not originating from a related Evaluation & Management service provided within the previous 7 days nor leading to an Evaluation & Management service or procedure within the next 24 hours or soonest available appointment. Date of visit: September 21, 2023 Time of Service: 130 Patient Name: Ms.Agnes Guerline Valiente Date of : 1960 Current Age: [age] year old Sex: female MRN/E# [id number] Last Office Visit: 09/15/2023 Mary Valiente has consented to this telephone encounter. Persons Present: patient Chief Complaint/Reason: follow up Past Medical/Surgical History: Mary Valiente is a 62 year old female with a history of De Quervain's disease and multiple thoracolumbar spinal fusions. Surgical Risk Factors: Smoking status: Denies Anticoagulants/antiplatelets: No Diabetic: No BMI: 23.18 +Prolia every 6 months October 2021-present (most recent injection 08/10/2023) HPI: Patient has history of previous extensive thoracic fusions( T1-Pelvis fusion) from [id number] [place] which was complicated by MSSA. She presented to [facility] on 05/08/2022 with purulent discharge from the cranial end of the old thoracicincision. She underwent a irrigation debridement on 05/09/2022. Cultures at that time were negative. She was then seen in the office on 08/25/2022 by Sumeet Leger PA-C and reported a 2-week history of thoracic wound opening at new location. There was purulent drainage underneath bra line. A repeat I&D of thoracic wound was performed on 08/26/2022 with removal of hardware. She refused a PICC line during admission. She was placed on cephalexin. Continued to follow up with ID who recommended continue on a prophylactic antibiotic. She was monitored routinely in office for follow-up in which her incision appeared to be healing nicely. She was last seen on 11/19/2022 for routine 3- month postoperative follow-up and reported she was evaluated by infectious disease on 10/27/2022 and instructed to continue chronic cefadroxil given her history. Radiographic imaging demonstrated satisfactory hardware. Patient reported upper back tightness, she was recommended to participate in a course of physical therapy, patient was hesitant todo so and was to contact her office if she wished to proceed. She was asked to follow-up on an as-needed basis with any new or worsening symptoms. She presented to the office 09/03/2023 and was seen by Bryanna Webber APRN, CNP. She reported I got a screw loose. She reported since last office visit she had continued pain in neck and middle back that had progressively worsened about 5 days prior without known trauma or injury. She felt that her hardware screw had loosened which was causing her pain. Pain was primarily midline in upper thoracic region and radiated into bilateral shoulder blades and upwards into bilateral trapezius regions and midline posterior neck. She denied pain radiating into arms or legs. She reported chronic gait difficulty, no recent falls. She continued to take prophylactic antibiotic as recommended by infectiou s disease, Bactrim daily. She was asked to obtain CT of the cervical and thoracic spine as well as scoliosis x-rays. She presented to the office 09/14/2023 for follow up and image review. She reported her symptoms wereunchanged. Complained of neck pain into the bilateral posterior scapular regions that radiated intothe thoracic region above the bra strap line bilaterally. She stated this was the worst region of pain. She had noticed pain into the triceps region bilaterally. Denied any hand difficulties or balance/gait issues. She denied any loss of bowel/bladder. She did report intermittent fevers and chills that started at unknown time. She had not had recent follow up with infectious disease but reported compliance with antibiotic therapy. She reported she only takes half a pill due to GI side effects. On examination in clinic she was neurologically intact. She pointed to region of pain roughly the level of T7-T8 as well as across the spinous process that was clearly visible at the cranial end of her incision. There was evidence of lucencies around the screws which had been there for some time aswell as assault retrospectively after she left the office new fracture at C7. I suspected her pain was from all of these issues combined. If we were to consider hardware revision I thought it would be a particular complex case. Needed to talk to infectious disease. She had only been on half her dose of Bactrim due to GI issues. I also needed to talk to plastics. Her skin was extremely thin and tight across that region. I thought she was going to need a skin graft. I planned to reach out to my [facility] colleagues. Several of her screws in her upper thoracic region were quite deep. I was not sure if I needed further workup there if his wrist any additional structures. I was also concerned about her bone quality. She stated she had a history of osteoporosis. She reported she was on Prolia, but I did not have any access to her bone mineral density. I needed to clarify all of that. I also planned to show her pictures to my orthopedic colleagues. I was going to send her for an ESR CRP as abaseline. I would likely repeat MRI imaging as well as a CT lumbar just to ensure there were solid fusion throughout. I cautioned her this would be a slow and thoughtful process. She was in tears in my office concerned about the pain she was having. I appreciate that but at this point we needed to try and optimize her if we do ultimately return her to surgery. Of note, our office confirmed with her primary care physician that the patient's most recent bone mineral density scan was in August of 2021 and that she had been on prolia since October of 2021 every 6 months with most recent injection 08/10/2023. She presents to the office today via distance health visit. She states symptoms are the same. Pain across the upper thoracic region into the shoulder blades. PREVIOUS CONSERVATIVE TREATMENT: - Medication: Percocet and Baclofen, recently started on Gabapentin per pain management - Physical therapy: Previous participation at [facility] which significantly worsened pain and unable to tolerate participation. - Pain Management: Follows with Dr. Cardoso at [facility] PREVIOUS SPINE SURGERY: -multiple spine surgeries [id number] London complicated by staph infection, hardware malfunction. T1-Pelvis fusion -I&D of upper thoracic wound on 05/09/[address] Butterfield -I&D of thoracic wound and removal of hardware on 08/26/[address] Butterfield OTHER DIAGNOSTIC TESTING: DXA scan obtained at [facility] 09/05/2021 PAST MEDICAL HISTORY 06/21/2012: De Quervain's disease (radial styloid tenosynovitis) PAST SURGICAL HISTORY 08/26/2022: BACK SURGERY HX Comment: Incision and debridement onset of thoracic wounds, removal of hardware 04/05/2009: LAPAROSCOPY SURG CHOLECYSTECTOMY Comment: Cholecystectomy, lap 06/09/2010: NEUROPLASTY &/TRANSPOS MEDIAN NRV CARPAL TUNNE Comment: Carpal tunnel decomp, right 08/06/2012: NEUROPLASTY &/TRANSPOS MEDIAN NRV CARPAL TUNNE Comment: Carpal tunnel decomp left and DeQuervain's release 03/12/2001: VAGINAL HYSTERECTOMY UTERUS 250 GM/< Comment: Hysterectomy, vaginal FAMILY HISTORY Problem Relation Age of Onset Breast Cancer Father other (brain tumor) Father Breast Cancer Paternal Grandmother Breast Cancer Paternal Aunt Breast Cancer Paternal Aunt ALLERGIES Allergen Reactions Bee Sting Swelling Codeine Hives, GI Upset Hydrocodone-Acetami* Vomiting Current Outpatient Medications Medication Sig Dispense Refill gabapentin (NEURONTIN) 300 mg capsule Take 300 mg by mouth two times a day. traZODone (DESYREL) 50 mg tablet sennosides (LAXATIVE ORAL) Take by mouth. oxyCODONE-acetaminophen (PERCOCET) 5-325 mg tablet baclofen 10 mg tablet sulfamethoxazole-trimethoprim (BACTRIM DS) 800-160 mg per tablet Take 1 tablet by mouth once daily.30 tablet 5 CALCIUM ORAL Take 1 capsule by mouth once daily. Ascorbic Acid (VITAMIN C) 100 mg tablet Take 100 mg by mouth once daily. Vitamin E, dl, acetate, (VITAMIN E) 400 unit capsule Take 400 Units by mouth once daily. lysine 500 mg tab 500 mg. mirtazapine (REMERON) 30 mg tablet Take 30 mg by mouth daily at bedtime. cyanocobalamin 1,000 mcg Tab Take 1 tablet by mouth once daily. 0 Cholecalciferol, Vitamin D3, 5,000 unit cap Take 1 capsule by mouth once daily. 0 No current facility-administered medications for this visit. REVIEW OF SYSTEMS Review of Systems Data Reviewed: IMAGING STUDIES: Labs 09/17/2023 CBC+Diff - Within Normal Limits Sed Rate, Westergren-WNL CRP- WNL No new imaging -I did review a prior bone mineral density which demonstrated osteoporosis. Patient is currently on Prolia. Assessment: I reviewed with the patient my concerns. I explained to her my finding of a C7 fracture. She deniesany history of trauma since the surgery. In which case this is a spontaneous fracture and explains why she may be having more pain in the lower cervical region. I explained moving forth that from a revision surgery perspective is imperative we get her on some Forteo to build her bone stock. Given her history she is otherwise going to have high high risk of instrumentation failure further. She wasupset but understood that. I am going to reach out to her primary care to see if they would be comfortable prescribing an anabolic agent such as Forteo. And also wondering about RFA's in the upper tho racic lower cervical region to try and help with her neck pain and upper thoracic pain in the meantime. She is not sure if her pain management physician in [place] will undertake those or not. I may need to reach out to him as well. I told her we would follow-up by phone once I have spoken to herP to know whether we need to then pursue a further referral to osteoporosis clinic. She understands that she will need a minimum of 3 months on Forteo prior to any surgical intervention. Time Spent: 11-20 minutes A total of 50 minutes was spent on the phone with the patient reviewing imaging and discussing management strategies moving forth. The following portions of the patient's history were reviewed, confirmed, and updated as necessary:allergies, current medications, past family history, past medical history, past social history, past surgical history, problem list, HPI, and ROS obtained by others. Some elements may be copied from a previous office note and have been reviewed/updated where appropriate. All portions reflect current medical decision making from today. The clinical and radiographic findings as well as the risks, benefits and alternatives of treatmenthave been reviewed in detail with the patient. Advised to call the office if symptoms worsen or new symptoms develop. Patient expressed understanding and is in agreement with plan. Rosio Butterfield MD Chair, Clinical Neurosciences Director, Spinal Neurosurgery [facility] Candace Conde I have communicated my name and active licensure. The patient's identity and physical location wereverified at the time of this visit. Either the patient or their legal direct customer service representative has been informed of the risks and benefits of -- and alternatives to -- treatment through a remote evaluation andconsents to proceed with the evaluation remotely. This note was partially generated using [employer] voice recognition system, and there may be some incorrect words, spellings, and punctuation that were not noted in checking the note before saving. documented in this encounterCity Hospital08-12-[facility]24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 Author Type: Technologist Type: Progress Notes Filed: 09/08/2023 10:38 Note Text: Summary: xr Radiology Service Progress Note PATIENT NAME: Mary Valiente DATE OF SERVICE: September 08, 2023 TIME: 10:38 AM PATIENT IDENTITY VERIFICATION COMPLETED USING TWO (2) IDENTIFIERS: Name and Date of confirmed by patient verbally. FALL SCREENING: Has the patient had 2 falls in the last year or 1 fall with injury or currently using an Ambulatory Assistive Device (Walker, Cane, Wheelchair, Crutches, etc.)? No PATIENT GENDER DATA: Female. status: : No status: NO. PATIENT RELEVANT IMPLANT DATA REVIEWED: Not Applicable PATIENT PRESENTS WITH AN IMPLANTABLE OR ATTACHED MEDICAL CENTER REPRESENTATIVE: No RADIOLOGY DEPARTMENT: General X-ray: Exam(s) Completed: Spine X-Ray(s): Scoliosis Series PERIPHERAL IV DATA: Not applicable SIGNED BY: RT Lisa(R) September 08, 2023 10:38 [facility]07-25-2024 History of Present illness Narrative* Bryanna Webber APRN.[facility] - 09/03/2023 11:00 AM EDT SPINE SURGERY FOLLOW UP NOTE Bryanna Webber APRN-[facility] Date of visit: September 03, 2023 Patient Name: Ms.Agnes Guerline Valiente Date of : 1960 Current Age: [age] year old Sex: female MRN/E# [id number] Last Office Visit: Visit date not found Chief Complaint: Patient presents with: Established Patient HPI Patient has history of previous extensive thoracic fusions( T1-Pelvis fusion) from [id number] London which was complicated by MSSA. She presented to [facility] on 05/08/2022 with purulent discharge from the cranial end of the old thoracicincision. She underwent a irrigation debridement on 05/09/[address] Butterfield. Cultures at that time were negative. She was then seen in the office on 08/25/2022 by Sumeet Leger PA-C and reported a 2-week history of thoracic wound opening at new location. There was purulent drainage underneath bra line. Case was discussed with Dr. Butterfield who recommended a repeat I&D of thoracic wound which was performed on 08/26/2022 with removal of hardware. She refused a PICC line during admission. She was placed on cephalexin. Continued to follow up with ID who recommended continue on a prophylactic antibiotic. She was monitored routinely in office for follow-up in which her incision appeared to be healing nicely. She was last seen on 11/19/2022 Dr. Butterfield for routine 3-month postoperative follow-up and reported she was evaluated by infectious disease on 10/27/2022 and instructed to continue chronic cefadroxil given her history. Radiographic imaging demonstrated satisfactory hardware. Patient reported upper back tightness, she was recommended to participate in a course of physical therapy, patient washesitant to do so and was to contact her office if she wished to proceed. She was asked to follow-up on an as-needed basis with any new or worsening symptoms. She presents today and reports I got a screw loose. She reports since last office visit she has had continue pain in neck and middle back that has progressively worsened about 5 days ago without known trauma or injury. She feels that her hardware screw has loosened which is causing her pain. Pain is primarily midline in upper thoracic region and radiates into bilateral shoulder blades and upwards into bilateral trapezius regions and midline posterior neck. She denies pain radiating into armsor legs. She reports chronic gait difficulty, no recent falls. She continues to take prophylactic antibiotic as recommended by infectious disease, Bactrim daily. PREVIOUS CONSERVATIVE TREATMENT: - Medication: Percocet and Baclofen, recently started on Gabapentin per pain management - Physical therapy: Previous participation at [place] which significantly worsened pain and unable to tolerate participation. - Pain Management: Follows with Dr. Cardoso at [place] PREVIOUS SPINE SURGERY: -multiple spine surgeries [id number] London complicated by staph infection, hardware malfunction. T1-Pelvis fusion -I&D of upper thoracic wound on 05/09/[address] Butterfield -I&D of thoracic wound and removal of hardware on 08/26/[address] Butterfield Surgical Risk Factors: Smoking status: Denies Anticoagulants/antiplatelets: No Diabetic: No BMI: 23.18 PAIN EVALUATION 09/03/2023 1045 Pain Level: 8 Pain Location: Back-Middle Description: Spasm;Throbbing;Stabbing;Stiffness;Aching Duration Units: Weeks Frequency: Continuous Intervention/Comfort measure: Medication PAST MEDICAL HISTORY Diagnosis Date De Quervain's disease (radial styloid tenosynovitis) 06/21/2012 PAST SURGICAL HISTORY Procedure Laterality Date BACK SURGERY HX 08/26/2022 Incision and debridement onset of thoracic wounds, removal of hardware LAPAROSCOPY SURG CHOLECYSTECTOMY 04/05/2009 Cholecystectomy, lap NEUROPLASTY &/TRANSPOS MEDIAN NRV CARPAL TUNNE 06/09/2010 Carpal tunnel decomp, right NEUROPLASTY &/TRANSPOS MEDIAN NRV CARPAL TUNNE 08/06/2012 Carpal tunnel decomp left and DeQuervain's release VAGINAL HYSTERECTOMY UTERUS 250 GM/< 03/12/2001 Hysterectomy, vaginal FAMILY HISTORY Problem Relation Age of Onset Breast Cancer Father other (brain tumor) Father Breast Cancer Paternal Grandmother Breast Cancer Paternal Aunt Breast Cancer Paternal Aunt ALLERGIES Allergen Reactions Bee Sting Swelling Codeine Hives Vicodin [Hydrocodon* Vomiting Current Outpatient Medications Medication Sig Dispense Refill oxyCODONE-acetaminophen (PERCOCET) 5-325 mg tablet baclofen 10 mg tablet sulfamethoxazole-trimethoprim (BACTRIM DS) 800-160 mg per tablet Take 1 tablet by mouth once daily.30 tablet 5 CALCIUM ORAL Take 1 capsule by mouth once daily. Ascorbic Acid (VITAMIN C) 100 mg tablet Take 100 mg by mouth once daily. Vitamin E, dl, acetate, (VITAMIN E) 400 unit capsule Take 400 Units by mouth once daily. lysine 500 mg tab 500 mg. mirtazapine (REMERON) 30 mg tablet Take 30 mg by mouth daily at bedtime. cyanocobalamin 1,000 mcg Tab Take 1 tablet by mouth once daily. 0 Cholecalciferol, Vitamin D3, 5,000 unit cap Take 1 capsule by mouth once daily. 0 No current facility-administered medications for this visit. REVIEW OF SYSTEMS Review of Systems OBJECTIVE: BP 128/72 Pulse 74 Temp 97.8 Ht 4' 10 (1.47m) Wt 110 lb 14.3 oz (50.3kg) SpO2 99% BMI 23.18 kg/(m^2). PHYSICAL EXAM: General - Alert,cooperative, appropriate Head: Atraumatic, normocephalic Neck: Supple Resp -Regular and unlabored Gait and Station: Shuffled gait. Thoracic kyphosis. No use of assistive device for casual gait. -Positive bilateral Jean-Pierre's. Upper extremities: Sensation: Intact to light touch Upper Extremity Strength Exam Right Left Deltoid 5/5 5/5 Biceps 5/5 5/5 Triceps 5/5 5/5 Wrist Extension 5/5 5/5 Interossei 5/5 5/5 Lower extremities: Sensation: Intact to light touch Lower Extremity Strength Exam Right Left Psoas 5/5 5/5 Quadriceps 5/5 5/5 DF 5/5 5/5 EHL 5/5 5/5 PF 06/13 06/13 Incision: Incision is healed, no current dehiscence or active drainage. No erythema noted. Minimal thoracic adipose tissue, hardware palpable, does not protrude through the skin. Data Review: No recent imaging available to review since last surgical intervention with Dr. Butterfield Assessment/Plan: (M54.6, G89.29) Chronic midline thoracic back pain (primary encounter diagnosis) (M54.2, G89.29) Chronic neck pain (Z98.1) Arthrodesis status -Previous T1- pelvis fusion at outside facility followed by x 2 I&Ds of thoracic wound with . On chronic phylactic Bactrim per ID. -Reports worsening of cervical and thoracic pain without known incident. She has attempted participation in physical therapy which significantly worsened her pain and she is unable to tolerate. She feels her hardware is significantly contributing to her pain. Her incision does not appear infected at today's visit, no active dehiscence, erythema, or drainage. Her hardware is easily palpable as shehas minimal thoracic adipose tissue but does not protrude through the skin. No recent cervical or thoracic imaging since most recent I&D with Dr. Butterfield. Recommend she obtain scoliosis films forcomplete vertebral anatomy evaluation as well as a CT of cervical and thoracic spine given history of prior fusion fusion for evaluation of bone structure, arthrosis status, and if evidence of hardware lucency. Follow up with Dr. Butterfield after imaging obtained for review and further planning. -Follows with pain management, chronic chronic use. Will defer to pain management for medication management. Plan: CT CERVICAL SPINE WO IVCON, CT THORACIC SPINE WO IVCON, XR SCOLIOSIS PA STAND/LAT 2V LAINE [facility] This note was partially generated using [employer] voice recognition system, and there may be some incorrect words, spellings, and punctuation that were not noted in checking the note before saving. documented in this encounterCity Hospital07-25-2024 NoteHNO ID: [id number] Author: BRYANNA WEBBER APRN.CNP Service: ? Author Type: Nurse Practitioner Type: Progress Notes Filed: 09/03/2023 16:17 Note Text: SPINE SURGERY FOLLOW UP NOTE Bryanna Webber APRN-MANAGER NICU Date of visit: September 03, 2023 Patient Name: Ms.Agnes Guerline Valiente Date of : 1960 Current Age: [age] year old Sex: female MRN/E# [id number] Last Office Visit: Visit date not found Chief Complaint: Patient presents with: Established Patient HPI Patient has history of previous extensive thoracic fusions( T1-Pelvis fusion) from [id number] London which was complicated by MSSA. She presented to [facility] on 05/08/2022 with purulent discharge from the cranial end of the old thoracic incision. She underwent a irrigation debridement on 05/09/[address] Butterfield. Cultures at that time were negative. She was then seen in the office on 08/25/2022 by Sumeet Leger PA-C and reported a 2-week history of thoracic wound opening at new location. There was purulent drainage underneath bra line. Case was discussed with Dr. Butterfield who recommended a repeat IANDD of thoracic wound which was performed on 08/26/2022 with removal of hardware. She refused a PICC line during admission. She was placed on cephalexin. Continued to follow up with ID who recommended continue on a prophylactic antibiotic. She was monitored routinely in office for follow-up in which her incision appeared to be healing nicely. She was last seen on 11/19/2022 Dr. Butterfield for routine 3-month postoperative follow-up and reported she was evaluated by infectious disease on 10/27/2022 and instructed to continue chronic cefadroxil given her history. Radiographic imaging demonstrated satisfactory hardware. Patient reported upper back tightness, she was recommended to participate in a course of physical therapy, patient was hesitant to do so and was to contact her office if she wished to proceed. She was asked to follow-up on an as-needed basis with any new or worsening symptoms. She presents today and reports I got a screw loose. She reports since last office visit she has had continue pain in neck and middle back that has progressively worsened about 5 days ago without known trauma or injury. She feels that her hardware screw has loosened which is causing her pain. Pain is primarily midline in upper thoracic region and radiates into bilateral shoulder blades and upwards into bilateral trapezius regions and midline posterior neck. She denies pain radiating into arms or legs. She reports chronic gait difficulty, no recent falls. She continues to take prophylactic antibiotic as recommended by infectious disease, Bactrim daily. PREVIOUS CONSERVATIVE TREATMENT: - Medication: Percocet and Baclofen, recently started on Gabapentin per pain management - Physical therapy: Previous participation at [place] which significantly worsened pain and unable to tolerate participation. - Pain Management: Follows with Dr. Cardoso at [place] PREVIOUS SPINE SURGERY: -multiple spine surgeries [id number] London complicated by staph infection, hardware malfunction. T1-Pelvis fusion -IANDD of upper thoracic wound on 05/09/[address] Butterfield -IANDD of thoracic wound and removal of hardware on 08/26/[address] Butterfield Surgical Risk Factors: Smoking status: Denies Anticoagulants/antiplatelets: No Diabetic: No BMI: 23.18 PAIN EVALUATION 09/03/2023 1045 Pain Level: 8 Pain Location: Back-Middle Description: Spasm;Throbbing;Stabbing;Stiffness;Aching Duration Units: Weeks Frequency: Continuous Intervention/Comfort measure: Medication PAST MEDICAL HISTORY Diagnosis Date De Quervain's disease (radial styloid tenosynovitis) 06/21/2012 PAST SURGICAL HISTORY Procedure Laterality Date BACK SURGERY HX 08/26/2022 Incision and debridement onset of thoracic wounds, removal of hardware LAPAROSCOPY SURG CHOLECYSTECTOMY 04/05/2009 Cholecystectomy, lap NEUROPLASTY AND/TRANSPOS MEDIAN NRV CARPAL TUNNE 06/09/2010 Carpal tunnel decomp, right NEUROPLASTY AND/TRANSPOS MEDIAN NRV CARPAL TUNNE 08/06/2012 Carpal tunnel decomp left and DeQuervain's release VAGINAL HYSTERECTOMY UTERUS 250 GM/< 03/12/2001 Hysterectomy, vaginal FAMILY HISTORY Problem Relation Age of Onset Breast Cancer Father other (brain tumor) Father Breast Cancer Paternal Grandmother Breast Cancer Paternal Aunt Breast Cancer Paternal Aunt ALLERGIES Allergen Reactions Bee Sting Swelling Codeine Hives Vicodin [Hydrocodon* Vomiting Current Outpatient Medications Medication Sig Dispense Refill oxyCODONE-acetaminophen (PERCOCET) 5-325 mg tablet baclofen 10 mg tablet sulfamethoxazole-trimethoprim (BACTRIM DS) 800-160 mg per tablet Take 1 tablet by mouth once daily. 30 tablet 5 CALCIUM ORAL Take 1 capsule by mouth once daily. Ascorbic Acid (VITAMIN C) 100 mg tablet Take 100 mg by mouth once daily. Vitamin E, dl, acetate, (VITAMIN E) 4 (more content not included)...[facility]03-04-2024 NoteHNO ID: [id number] Author: JOSE MARTIN HAGEN APRN.MANAGER NICU Service: ? Author Type: Nurse Practitioner Type: Progress Notes Filed: 04/13/2023 10:46 Note Text: Mary Valiente is a 62 year old female who presents with Headache (Nausea x 4 days) 62-year-old female presents today with nausea/vomiting/headache for the last 4 days. Patient states generalized weakness kind of feels worse than when she had COVID. She denies any fevers but states she has had chills patient said she only had diarrhea 1 day on Thursday. Patient states nauseated and does not feel like eating or drinking. Headache Associated symptoms include nausea and vomiting. 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 30 tablet 5 CALCIUM ORAL Take 1 capsule by mouth once daily. Ascorbic Acid (VITAMIN C) 100 mg tablet Take 100 mg by mouth once daily. Vitamin E, dl, acetate, (VITAMIN E) 400 unit capsule Take 400 Units by mouth once daily. lysine 500 mg tab 500 mg. mirtazapine (REMERON) 30 mg tablet Take 30 mg by mouth daily at bedtime. cyanocobalamin 1,000 mcg Tab Take 1 tablet by mouth once daily. 0 Cholecalciferol, Vitamin D3, 5,000 unit cap Take 1 capsule by mouth once daily. 0 ondansetron (ZOFRAN) 4 mg tablet Take 1 tablet by mouth every 8 hours as needed for nausea/vomiting for up to 5 days. 10 tablet 0 No current facility-administered medications for this visit. Social History Tobacco Use Smoking status: Former Packs/day: 0.50 Years: 20.00 Additional pack years: 0.00 Total pack years: 10.00 Types: Cigarettes Quit date: 08/09/1996 Years since quittin.6 Smokeless tobacco: Former Substance Use Topics Alcohol use: Not Currently Comment: 2 drinks per month Drug use: No Alcohol Use: Not Currently (2 drinks per month ) Tobacco Use: 0.5 packs/day, for 20 years. Quit 08/09/1996. Types: Cigarettes FAMILY HISTORY Problem Relation Age of Onset Breast Cancer Father other (brain tumor) Father Breast Cancer Paternal Grandmother Breast Cancer Paternal Aunt Breast Cancer Paternal Aunt Review of Systems Respiratory: Positive for cough. Gastrointestinal: Positive for nausea and vomiting. Neurological: Positive for headaches. All other systems reviewed and are negative. BP 132/84 Pulse 91 Temp 97.9 Resp 20 SpO2 97% Physical Exam Vitals and nursing note reviewed. Constitutional: General: She is not in acute distress. Appearance: Normal appearance. She is normal weight. She is not ill-appearing, toxic-appearing or diaphoretic. HENT: Head: Normocephalic. Right Ear: Tympanic membrane, ear canal and external ear normal. Left Ear: Tympanic membrane, ear canal and external ear normal. Nose: Nose normal. No congestion or rhinorrhea. Mouth/Throat: Mouth: Mucous membranes are moist. Pharynx: Oropharynx is clear. No oropharyngeal exudate or posterior oropharyngeal erythema. Cardiovascular: Rate and Rhythm: Normal rate and regular rhythm. Pulses: Normal pulses. Heart sounds: Normal heart sounds. Pulmonary: Effort: Pulmonary effort is normal. No respiratory distress. Breath sounds: Normal breath sounds. No stridor. No wheezing, rhonchi or rales. Chest: Chest wall: No tenderness. Abdominal: General: Abdomen is flat. Bowel sounds are normal. Palpations: Abdomen is soft. Musculoskeletal: Cervical back: Normal range of motion. No rigidity or tenderness. Lymphadenopathy: Cervical: No cervical adenopathy. Skin: General: Skin is warm and dry. Capillary Refill: Capillary refill takes less than 2 seconds. Neurological: Mental Status: She is alert. ASSESSMENT/PLAN: 1. Viral illness - ICD9: 079.99, ICD10: B34.9 - Discussed viral etiology and rationale for treatment. - Symptomatic treatment with prn analgesia - Supportive care with fluids and rest discussed with patient would order Zofran for nausea do not have any in stock currently in clinic. - ONDANSETRON HCL 4 MG TABLET - COVID AND INFLUENZA A/B AND RSV NAAT, EXPEDITED Discussed with patient if she is not able to keep down fluids she would need to go to the emergency room for possible IV therapy. Abortive measures try with electrolytes or Pedialyte. If worsening of condition shortness or breath, fever chill please go to ER for evaluation. Jose Martin Hagen APRN. (more content not included)...[facility] 04-13-2023 History of Present illness Narrative* Jose Martin Hagen, [facility] - 04/13/2023 10:43 AM EST Mary Valiente is a 62 year old female who presents with Headache (Nausea x 4 days) 62-year-old female presents today with nausea/vomiting/headache for the last 4 days. Patient statesgeneralized weakness kind of feels worse than when she had COVID. She denies any fevers but states she has had chills patient said she only had diarrhea 1 day on Thursday. Patient states nauseated and does not feel like eating or drinking. Headache Associated symptoms include nausea and vomiting. 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 Ascorbic Acid (VITAMIN C) 100 mg tablet Take 100 mg by mouth once daily. Vitamin E, dl, acetate, (VITAMIN E) 400 unit capsule Take 400 Units by mouth once daily. lysine 500 mg tab 500 mg. mirtazapine (REMERON) 30 mg tablet Take 30 mg by mouth daily at bedtime. cyanocobalamin 1,000 mcg Tab Take 1 tablet by mouth once daily. 0 Cholecalciferol, Vitamin D3, 5,000 unit cap Take 1 capsule by mouth once daily. 0 ondansetron (ZOFRAN) 4 mg tablet Take 1 tablet by mouth every 8 hours as needed for nausea/vomitingfor up to 5 days. 10 tablet 0 No current facility-administered medications for this visit. Social History Tobacco Use Smoking status: Former Packs/day: 0.50 Years: 20.00 Additional pack years: 0.00 Total pack years: 10.00 Types: Cigarettes Quit date: 08/09/1996 Years since quittin.6 Smokeless tobacco: Former Substance Use Topics Alcohol use: Not Currently Comment: 2 drinks per month Drug use: No Alcohol Use: Not Currently (2 drinks per month ) Tobacco Use: 0.5 packs/day, for 20 years. Quit 08/09/1996. Types: Cigarettes FAMILY HISTORY Problem Relation Age of Onset Breast Cancer Father other (brain tumor) Father Breast Cancer Paternal Grandmother Breast Cancer Paternal Aunt Breast Cancer Paternal Aunt Review of Systems Respiratory: Positive for cough. Gastrointestinal: Positive for nausea and vomiting. Neurological: Positive for headaches. All other systems reviewed and are negative. BP 132/84 Pulse 91 Temp 97.9 Resp 20 SpO2 97% Physical Exam Vitals and nursing note reviewed. Constitutional: General: She is not in acute distress. Appearance: Normal appearance. She is normal weight. She is not ill-appearing, toxic-appearing or diaphoretic. HENT: Head: Normocephalic. Right Ear: Tympanic membrane, ear canal and external ear normal. Left Ear: Tympanic membrane, ear canal and external ear normal. Nose: Nose normal. No congestion or rhinorrhea. Mouth/Throat: Mouth: Mucous membranes are moist. Pharynx: Oropharynx is clear. No oropharyngeal exudate or posterior oropharyngeal erythema. Cardiovascular: Rate and Rhythm: Normal rate and regular rhythm. Pulses: Normal pulses. Heart sounds: Normal heart sounds. Pulmonary: Effort: Pulmonary effort is normal. No respiratory distress. Breath sounds: Normal breath sounds. No stridor. No wheezing, rhonchi or rales. Chest: Chest wall: No tenderness. Abdominal: General: Abdomen is flat. Bowel sounds are normal. Palpations: Abdomen is soft. Musculoskeletal: Cervical back: Normal range of motion. No rigidity or tenderness. Lymphadenopathy: Cervical: No cervical adenopathy. Skin: General: Skin is warm and dry. Capillary Refill: Capillary refill takes less than 2 seconds. Neurological: Mental Status: She is alert. ASSESSMENT/PLAN: 1. Viral illness - ICD9: 079.99, ICD10: B34.9 - Discussed viral etiology and rationale for treatment. - Symptomatic treatment with prn analgesia - Supportive care with fluids and rest discussed with patient would order Zofran for nausea do not have any in stock currently in clinic. - ONDANSETRON HCL 4 MG TABLET - COVID AND INFLUENZA A/B & RSV NAAT, EXPEDITED Discussed with patient if she is not able to keep down fluids she would need to go to the emergencyroom for possible IV therapy. Abortive measures try with electrolytes or Pedialyte. If worsening of condition shortness or breath, fever chill please go to ER for evaluation. Jose Martin Hagen APRN.MANAGER NICU This note was partially generated using [employer] voice recognition system, and there may be some incorrect words, spellings, and punctuation that were not noted in checking the note before saving. [facility] Instructions* Patient Instructions* Jose Martin Hagen APRN.MANAGER NICU - 04/13/2023 10:34 AM EST Body aches/Pain/Fever Acetaminophen/Tylenol not to exceed 3000mg in a 24 hour period and or Ibuprofen/Motrin 600mg every 6 hours not to exceed 2400mg in a 24 hour period if no history of gastrointestinal bleeding or ulcers for pain/discomfort of fever. Sore throat: Warm beverages with honey, salt water gargles, Chloraseptic spray, throat lozenges. Congestion: Over the counter medications like Tylenol Cold and Flu, Theraflu or Sudafed. Nasal sprays like Flonase or normal saline can also help. Coricidin for patient with Hypertension (high blood pressure) If any worsening of condition: shortness of breath, chest pain or not able to keep down fluids please go to ER.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 surgical history, problem list, HPI, and ROS obtained by others. Some elements may be copied from a previous office note and have been reviewed/updated where appropriate. All portions reflect current medical decision making from today. The clinical and radiographic findings as well as the risks, benefits and alternatives of treatmenthave been reviewed in detail with the patient. Advised to call the office if symptoms worsen or new symptoms develop. Patient expressed understanding and is in agreement with plan. Rosio Butterfield MD Chair, Clinical Neurosciences Director, Spinal Neurosurgery [facility] This note was partially generated using [employer] voice recognition system, and there may be some incorrect words, spellings, and punctuation that were not noted in checking the note before saving. documented in this encounterCity Hospital07-31-2023 History of Present illness Narrative* Sumeet Leger PA-C - 09/08/2022 12:09 PM EDT NEUROSURGERY POST-OP NOTE Sumeet Leger PA-C Date of visit: September 08, 2022 Patient Name: Ms.Agnes Guerline Valiente Date of : 1960 Current Age: [age] year old Sex: female MRN/E# [id number] Last Office Visit: 08/29/2022 SURGERY: Pre-Surgical Symptoms: Wound opening Patient is having their 2 week post operative visit. Patient underwent incision and debridement of thoracic wound with removal of cross-link hardware byDr. Butterfield 08/26/2022. Her incision has healed nicely. No evidence of erythema, hematoma, fluctuance or drainage. Wound edges are well approximated. Review of her hospitalization shows that she was seen in consultation by infectious disease and has follow-up appointment with Dr. Joel in nov. By records looks like she refused a PICC line. She is on cephalexin and has been compliant with taking medication. Sutures removed in the office today without complication. No issues with wound edges after sutures removed. Incision: Clean, dry, flat, intact. Current Outpatient Medications Medication Sig Dispense Refill cephALEXin (KEFLEX) 500 mg capsule Take 2 capsules by mouth three times daily. 336 capsule 0 CALCIUM ORAL Take 1 capsule by mouth once daily. pantoprazole DR (PROTONIX) 40 mg tablet Take 1 tablet by mouth once daily. 30 tablet 0 Ascorbic Acid (VITAMIN C) 100 mg tablet Take 100 mg by mouth once daily. Vitamin E, dl, acetate, (VITAMIN E) 400 unit capsule Take 400 Units by mouth once daily. lysine 500 mg tab 500 mg. mirtazapine (REMERON) 30 mg tablet Take 30 mg by mouth daily at bedtime. oxyCODONE-acetaminophen (PERCOCET) 5-325 mg tablet Take 1 tablet by mouth every 6 hours as needed. 0 ibuprofen (MOTRIN) 200 mg tablet Take 800 mg by mouth every 6 hours as needed. cyanocobalamin 1,000 mcg Tab Take 1 tablet by mouth once daily. 0 Cholecalciferol, Vitamin D3, 5,000 unit cap Take 1 capsule by mouth once daily. 0 Sennosides 25 mg tab Take 1 tablet by mouth once daily. 0 No current facility-administered medications for this visit. Review of Systems Social History Tobacco Use Smoking status: Former Packs/day: 0.50 Years: 20.00 Total pack years: 10.00 Types: Cigarettes Quit date: 08/09/1996 Years since quittin.0 Smokeless tobacco: Former Substance Use Topics Alcohol use: Yes Comment: 2 drinks per month Drug use: No PAIN EVALUATION 09/08/2022 1059 Pain Level: 7 Pain Location: Back-Lower Description: Aching;Sore Duration Units: Weeks Frequency: Intermittent Intervention/Comfort measure: Medication PHYSICAL EXAM: WOUND ASSESSMENT: Clean, dry, flat, intact. This is a 61-year-old female with prior history of large thoracolumbar construct by Dr. London in 2018. She underwent wound washout by Dr. Butterfield 05/09/2022 with negative cultures at that time. She presented to the office recently with a new pinhole opening to her incision at her bra line at the same area of cross-link. She underwent wound washout by Dr. Butterfield 2 weeks ago with out any gross obvio us purulence. Cross-link was removed. She is on oral antibiotics and has an appointment with infectious disease in October. Sutures removed in the office today. Her incision looks good. I have encouraged patient to call the office with any concerns or questions. She will follow-up with Dr. Butterfield in 1 month. Sumeet Leger PA-C documented in this encounterCity Hospital07-20-2023 Miscellaneous Notes* Telephone Encounter - Shavonne Coles - 08/28/2022 4:30 PM EDT Pt scheduled and info mailed to pt Shavonne Coles documented in this encounterCity Hospital07-17-2023 History of Present illness Narrative* Sumeet Leger PA-C - 08/25/2022 1:00 PM EDT Images from the original note were not included. NEUROSURGERY FOLLOW UP OFFICE NOTE Sumeet Leger PA-C Date of visit: August 25, 2022 Patient Name: Ms.Agnes Guerline Valiente Date of : 1960 Current Age: [age] year old Sex: female MRN/E# [id number] Last Office Visit: 08/20/2022 Chief Complaint: Patient presents with: Established Patient Thoracic incisional wound SUBJECTIVE: HPI This is a 61-year-old female with prior history of multiple thoracolumbar spinal fusions with most recent surgery by Dr. London in 2018. More recently she required wound washout by Dr. Butterfield 05/09/2022. Cultures at that time were negative. She followed up in the office afterwards but did not require any further care. She comes in today with a 2-week history of thoracic wound opening this time to a new location just under her bra line. She endorses yellowish bloody drainage. She called our office and we recommended that she proceed to the ER for work-up. She was seen in the ER but eloped afterprolonged stay. Part of her work-up included CT scan of the thoracic spine which did not show any ob vious hardware failure. White blood cell count was normal. She complains of essentially stable chronic back pain. She endorses chronic numbness and tingling below her bra line anteriorly and throughout her thoracic and lumbar spine region posteriorly. She denies fever or chills but generally feels unwell and has felt a little nauseous. No change in bowel or bladder function. No motor weakness. She has a CT scan of the thoracic spine from 08/19/2022 which shows instrumentation to be in good position without evidence of hardware failure. No obvious large fluid collections. Wound was visualized in the office today with female enterprise applications manager present. There is a pencil sized opening to her thoracic spine incision at the bra line. I am not able to actively express any drainage but there was yellow and bloody drainage noted on her dressing. Cross-link can be palpated just under her opening. Symptoms: Draining thoracic incision at bra line PAIN EVALUATION 08/25/2022 1256 Pain Location: Neck upper back Description: Aching;Dull Duration Units: Weeks Frequency: Continuous Intervention/Comfort measure: Medication PAST MEDICAL HISTORY Diagnosis Date De Quervain's disease (radial styloid tenosynovitis) 06/21/2012 PAST SURGICAL HISTORY Procedure Laterality Date LAPAROSCOPY SURG CHOLECYSTECTOMY 04/05/2009 Cholecystectomy, lap NEUROPLASTY &/TRANSPOS MEDIAN NRV CARPAL TUNNE 06/2010 Carpal tunnel decomp, right NEUROPLASTY &/TRANSPOS MEDIAN NRV CARPAL TUNNE 08/06/2012 Carpal tunnel decomp left and DeQuervain's release VAGINAL HYSTERECTOMY UTERUS 250 GM/< 03/2001 Hysterectomy, vaginal Social History Tobacco Use Smoking status: Former Packs/day: 0.50 Years: 20.00 Total pack years: 10.00 Types: Cigarettes Quit date: 08/09/1996 Years since quittin.0 Smokeless tobacco: Former Substance Use Topics Alcohol use: Yes Comment: 2 drinks per month Drug use: No FAMILY HISTORY Problem Relation Age of Onset Breast Cancer Father other (brain tumor) Father Breast Cancer Paternal Grandmother Breast Cancer Paternal Aunt Breast Cancer Paternal Aunt ALLERGIES Allergen Reactions Bee Sting Swelling Codeine Hives Vicodin [Hydrocodon* Vomiting Current Outpatient Medications Medication Sig Dispense Refill CALCIUM ORAL Take 1 capsule by mouth once daily. Ascorbic Acid (VITAMIN C) 100 mg tablet Take 100 mg by mouth once daily. Vitamin E, dl, acetate, (VITAMIN E) 400 unit capsule Take 400 Units by mouth once daily. lysine 500 mg tab 500 mg. mirtazapine (REMERON) 30 mg tablet Take 30 mg by mouth daily at bedtime. oxyCODONE-acetaminophen (PERCOCET) 5-325 mg tablet Take 1 tablet by mouth every 6 hours as needed. 0 cyanocobalamin 1,000 mcg Tab Take 1 tablet by mouth once daily. 0 Cholecalciferol, Vitamin D3, 5,000 unit cap Take 1 capsule by mouth once daily. [address] (PROTONIX) 40 mg tablet Take 1 tablet by mouth once daily. 30 tablet 0 ibuprofen (MOTRIN) 200 mg tablet Take 800 mg by mouth every 6 hours as needed. Sennosides 25 mg tab Take 1 tablet by mouth once daily. 0 No current facility-administered medications for this visit. REVIEW OF SYSTEMS Review of Systems Constitutional: Negative for activity change, chills, fatigue and fever. Gastrointestinal: Positive for nausea. Genitourinary: Negative for difficulty urinating. Musculoskeletal: Positive for back pain (Chronic back pain at baseline with no significant worsening.). Neurological: Positive for numbness (Chronic thoracic and lumbar numbness and tingling unchanged). Negative for weakness. OBJECTIVE: BP 128/82 Pulse 58 Ht 4' 10 (1.47m) Wt 112 lb 3.4 oz (50.9kg) SpO2 100% BMI 23.46 kg/(m^2). Physical Exam Neurological Exam Mental State : Alert, memory function unremarkable. Attention span and concentration Normal for patient's age. Recent and remote memory normal Orientation : Oriented to time place and person Higher Cortical Function : Intact speech and language. Spontaneous speech and comprehension normal.Fund of knowledge intact for pt level of education. Sensory : Normal Sensation in upper and lower extremities and trunk to touch and Noxious stimuli. Motor : Normal muscle tone and bulk. No tremor or uncontrollable movements No spasticity . Strength: Lower Extremities : Hip Flexors 5 5 Hip Extensors 5 5 Hip Abductors 5 5 Hip Adductors 5 5 Quads 5 5 Hamstrings 5 5 Ankle dorsiflex 5 5 Ankle plantars 5 5 Heel Walking 5 5 Toe Walking 5 5 Gait and Station: Normal Data Review IMAGING STUDIES: CT scan of thoracic spine as outlined above Personal review of medical records: I reviewed with the patient, history, physical exam, the imagesand the chart. This is a 61-year-old female with prior history of multiple thoracolumbar surgeries. She most recently underwent thoracic wound washout which was culture negative. She comes in today with a draining pencil sized opening to her incision and a new area just under her bra line that started 2 weeks ago. She was seen in the ER back on the but unfortunately eloped without further work-up other than blood work and CT scan. Discussed case with Dr. Butterfield. She has made recommendation for direct admission to neurosurgery service. She will need infectious disease consult, routine preoperative blood work, CRP, sed rate and wound culture. Hold off on any antibiotics at this time. Plan for I&D with washout of thoracic wound tomorrow. I have discussed this with the patient and she is agreeable. We have notified our on-call team as well. Sumeet Leger PA-C documented in this encounterCity Hospital07-12-2023 Miscellaneous Notes* Telephone Encounter - Tyler Epstein RN - 08/20/2022 1:58 PM EDT I spoke with Dr. Butterfield regarding patient's case and complaints. (See previous telephone encounter). Patient tells me she waited long enough at ER yesterday and refuses to go back. I let her know thatDr. Butterfield strongly encouraged her to go back for evaluation given reports of drainage but patientrefuses. Explained she may need an infectious disease consult. Offered to bring her into the office this week and declined. She is agreeable to coming into the office next week. I did explain to her that if she develops any fevers, chills, weakness or severe pain she needs to be seen in ER instead of waiting to be seen in office. She understands. Let her know that someone from the office would be contacting her to get this scheduled with an AL. I then asked coordinators to reach out to patient to get this scheduled. Tyler Epstein RN documented in this encounterCity Hospital07-12-2023 Miscellaneous Notes* Telephone Encounter - Tiffanie Shah RN - 08/20/2022 11:11 AM EDT Patient called in stating she went to the ED yesterday and waited 8 hours and then eloped. She did have CT thoracic spine done while she was there. She reports having severe back pain, she said she has had back pain since her surgery though. She takes percocet and follows with pain management, Dr Clemente (?). I proceeded to ask if she was having issues with her incision site which she said no, she said she is having drainage on another spot on her back but it is not her incision site. She said the drainage comes and goes. I offered her an appointment with an METAL RIVET MACHINE OPERATOR either tomorrow or Thursday to beevaluated in office to see what is going on with this drainage to which she said she is busy the next couple days and doesn't know if she can make it in. I again advised that she should be seen in office for this. She was reluctant. I made Dr. Butterfield's primary RN, Tesha aware of this. She is going to speak with Dr. Butterfield about this. Tiffanie Shah RN documented in this encounterCity Hospital07-10-2023 Miscellaneous Notes* Telephone Encounter - Lisa Pabon RN - 08/18/2022 2:19 PM EDT Patient underwent Incision and debridement of upper thoracic wound with Dr. Butterfield on 05/09/2022 for purulent discharge from the cranial end of the old incision. She did well postoperatively, last seen on 05/26/2022 and incision appeared to healing nicely. Woundcultures were negative. She was recommended to follow-up as needed. Called and spoke to patient returning her voice message. She stated for the last week she noticed purulent serosanguinous drainage from the distal aspect of her incision, near mid back. She noted about a dime-size dehiscences. Denied fever or chills but stated she has not been feeling well-nauseous. She stated she felt this way before her prior I&D. She was unsure if there was erythema aroundher incision site. Patient does not have MyChart access, unable for patient to upload photos of incision via MyChart. Discussed with Dr. Butterfield and recommended for patient to present to the Emergency Department to beevaluated. Patient made aware of the recommendations and will go to [facility] ER today. Dr. Butterfield notified. Patient verbalized understanding and appreciative of call. Patient will call office with any questions or concerns. Lisa Pabon RN documented in this encounterCity Hospital07-10-2023 Miscellaneous Notes* Telephone Encounter - Bryanna Webber APRN.CNP - 08/18/2022 12:37 PM EDT Patient contacted office and spoke with legal secretary reporting an opening from incision that has been oozing for 5 to 6 days. Attempted to return patient's call, no answer. Spoke with family member and asked for patient to return call at earliest convenience. LAINE [facility]urg[facility]ia [facility] in this encounter[facility] History of Present illness Narrative* Bryanna Webber APRN.CNP - 05/26/2022 2:30 PM EDT Postoperative Note LAINE Murguia Date of visit: May 26, 2022 Patient Name: Ms.Agnes Guerline Valiente Date of : 1960 Current Age: [age] year old Sex: female MRN/E# [id number] Last Office Visit: Visit date not found Postop Lumbar: ASSESSMENT: Surgery Date: 05/09/22 Surgery Type: Incision and debridement of upper thoracic wound Surgeon: Dr. Butterfield Pre-Surgical Symptoms: Presented to the [facility] with purulent discharge from the cranial end of the old incision. Microbiology data: WOUND CULTURE No growth 3 days Smear Result No organisms seen No Polymorphonuclear Leukocytes Many Red Blood Cells Culture Negative for anaerobes. Culture No Acid Fast Bacilli isolated after 14 days Culture No Fungus isolated after 16 days Culture No growth 5 days CC: Back surgery HPI: Brace type: None. Postop pain control?: Controlled Postop pain control medications?: Percocet- follow with pain management ROS: No fevers, chills night sweats, excessive drainage from incision, new neurologic issues. No chest pain, shortness of breath, leg swelling, changes in bowel/bladder. Progress: Patient has history of multiple spinal surgeries. She presented to [facility] on 05/08/2022 with purulent discharge from the cranial end of the old thoracic incision. She underwent a irrigation debridement on 05/09/[address] Butterfield. Infectious disease was consulted, treated with IV antibiotics during h ospitalization with no plan for outpatient antibiotic. Per chart review, it was discussed If gram negative growth of cultures noted, would need XR Upper GI Single Contrast due to thoracic screws abutting esophagus . She was discharged on 05/11/2022 and asked to follow-up with neurosurgery in 2 weeks time, prompting her visit today. Today she reports doing well postoperatively. He reports upon hospital discharge she was not prescribed antibiotic. She denies postoperative fever, chills, incisional drainage, incisional erythema, or wound dehiscence. Pain is tolerable with chronic narcotic medication, follows with pain management. PHYSICAL EXAM: General - Alert,cooperative, appropriate Head: Atraumatic, normocephalic Neck: Supple Resp -Regular and unlabored Gait and Station: Normal gait. Upper extremities: Sensation: Intact to light touch Upper Extremity Strength Exam Right Left Deltoid 5 5 Biceps 5 5 Triceps 5 5 Wrist Extension 5 5 Interossei 5 5 Lower extremities: Sensation: Intact to light touch Lower Extremity Strength Exam Right Left Psoas 5 5 Quadriceps 5 5 DF 5 5 EHL 5 5 PF 5 5 Incision: Dry and intact, without redness- sutures removed PLAN: 1.) Activity: As tolerated 2.) Scripts: N/A 3.) Follow up: prn 4.) Comments: -Patient is doing well postoperatively. She has no signs or symptoms of infection. Incision appearsto be healing nicely, sutures removed. Surgical microbiology reviewed with her in clinic, unremarkable. Case discussed with Dr. Butterfield, at this time patient can follow-up with neurosurgery on an as-needed basis if any new or worsening symptoms. [facility] Candace Conde This note was partially generated using [employer] voice recognition system, and there may be some incorrect words, spellings, and punctuation that were not noted in checking the note before saving. documented in this encounterCity Hospital05-13-[facility] History of Past illness Narrative* Problem Noted Date Resolved Date De Quervain's disease (radial styloid tenosynovi tis) 06/21/2012 04/17/2017 documented as of this encounter (statuses as of 05/27/2022) [facility] Narrative* Problem Noted Date Diagnosed Date Resolved Date De Quervain's disease (radia l styloid tenosynovitis) 06/21/2012 04/17/2017 documented as of this encounter (statuses as of 08/18/2022) [facility] Narrative* Problem Noted Date Diagnosed Date Resolved Date De Quervain's disease (radia l styloid tenosynovitis) 06/21/2012 04/17/2017 documented as of this encounter (statuses as of 08/19/2022) [facility] Narrative* Problem Noted Date Diagnosed Date Resolved Date De Quervain's disease (radia l styloid tenosynovitis) 06/21/2012 04/17/2017 documented as of this encounter (statuses as of 08/20/2022) [facility] Narrative* Problem Noted Date Diagnosed Date Resolved Date De Quervain's disease (radia l styloid tenosynovitis) 06/21/2012 04/17/2017 documented as of this encounter (statuses as of 08/21/2022) [facility] Narrative* Problem Noted Date Diagnosed Date Resolved Date De Quervain's disease (radia l styloid tenosynovitis) 06/21/2012 04/17/2017 documented as of this encounter (statuses as of 08/26/2022) [address]13-2013 History of Past illness Narrative* Problem Noted Date Diagnosed Date Resolved Date De Quervain's disease (radia l styloid tenosynovitis) 06/21/2012 04/17/2017 documented as of this encounter (statuses as of 08/29/2022) [facility] Narrative* Problem Noted Date Diagnosed Date Resolved Date De Quervain's disease (radia l styloid tenosynovitis) 06/21/2012 04/17/2017 documented as of this encounter (statuses as of 09/08/2022) [facility] Narrative* Problem Noted Date Diagnosed Date Resolved Date De Quervain's disease (radia l styloid tenosynovitis) 06/21/2012 04/17/2017 documented as of this encounter (statuses as of 10/08/2022) [facility] Narrative* Problem Noted Date Diagnosed Date Resolved Date De Quervain's disease (radia l styloid tenosynovitis) 06/21/2012 04/17/2017 documented as of this encounter (statuses as of 10/09/2022) [facility] Narrative* Problem Noted Date Diagnosed Date Resolved Date De Quervain's disease (radia l styloid tenosynovitis) 06/21/2012 04/17/2017 documented as of this encounter (statuses as of 11/07/2022) [facility] Narrative* Problem Noted Date Diagnosed Date Resolved Date De Quervain's disease (radia l styloid tenosynovitis) 06/21/2012 04/17/2017 documented as of this encounter (statuses as of 11/19/2022) [facility] Narrative* Problem Noted Date Diagnosed Date Resolved Date De Quervain's disease (radia l styloid tenosynovitis) 06/21/2012 04/17/2017 documented as of this encounter (statuses as of 11/20/2022) [facility] Narrative* Problem Noted Date Diagnosed Date Resolved Date De Quervain's disease (radia l styloid tenosynovitis) 06/21/2012 04/17/2017 documented as of this encounter (statuses as of 04/13/2023) [facility] note Author Zachariah Patel [facility] Note Date/Time September 22, 2024 11 :00am [facility] Medical Records Department [address] [place] [address] Anesthesia Postop Eval I 09/22/24 1059 MR#: [id number] Acct: [id number] Name: MARY VALIENTE Rep #:[id number] : 1960 63 From: Zachariah Patel PCP: Dr. Jerrica Marshall MD Status:R EG SDC Y Race: C Location: [place] [address] Anesthesia: Postop Eval I Current Vital Signs Temperature: 97.8 F Pulse Rate: 77 Blood Pressure: 107/69 Respiratory Rate: 16 Pulse Ox: 100 Oxygen Delivery Method: Room Air Assessment Airway patent: Yes Spontaneous unlabored respirations: Yes Mental status: Asleep nausea: No Vomiting: No Anesthesia Complication: Yes Anesthesia Complication Comment:: hypotension, tx w/phenylephrine Fluid Hydration Crystalloid volume administer (ml): 200 Total IV fluid infused: 200 Progress Note Anesthesia document: Postop Eval 1 completed: Yes 09/22/24 1100 <Electronically signed by Zachariah Patel > Date _ Zachariah Marie Signature: Date CC: ~ Signed [facility] Work Phone: Evaluation note* Diagnosis Onset Date Resolution Status Anemia acute Neuropathy acute Chronic back pain chronic [facility] Work Phone: Evaluation note* Diagnosis Onset Date Resolution Status Anemia acute Neuropathy acute Chronic back pain chronic Chronic back pain chronic [facility] Work Phone: Evaluation note* Diagnosis Onset Date Resolution Status Chronic back pain chronic Encounter for screening for malignant neoplasm of colo n acute Epigastric pain acute Weight loss, non-intentional acute [facility] Work Phone: Evaluation note* Diagnosis Onset Date Resolution Status Encounter for screening for malignant neoplasm of colon acute Epigastric pain acute Weight loss, non-intentional acute Screening for colon cancer n oneactive Urinary frequency noneactive Early satiety noneactive Weight loss noneactive Tobacco dependence in remission noneactive Abdominal pain noneactive GERD (gastroesophageal reflux disease) acute Health care maintenance acut e Weight loss, non-intentional acute DDD (degenerative disc disease) chronic [facility] Work Phone: Evaluation note* Diagnosis Onset Date Resolution Status Encounter for screening for malignant neoplasm of colon acute Epigastric pain acute Weight loss, non-intentional acute Screening for colon cancer n oneactive Urinary frequency noneactive Early satiety noneactive Weight loss noneactive Tobacco dependence in remission noneactive Abdominal pain noneactive GERD (gastroesophageal reflux disease) acute Health care maintenance acut e Weight loss, non-intentional acute DDD (degenerative disc disease) chronic Osteoporosis acute Weight loss, non-intentional acute [facility] Work Phone: Evaluation note* Diagnosis Onset Date Resolution Status Osteoporosis acute Weight loss, non-intentional acute GERD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 Referral 09/24/2023 09/23/2024 1 1 Additional Source Comments INFORMATION SOURCE (unrecogn ized section and content) DATE CREATED AUTHOR 07/31/2017 [facility] DATE CREATED AUTHOR AUTHOR'S ORGANIZ ATION 05/21/2018 [facility] DATE CREATED AUTHOR AUTHOR'S ORGANIZ ATION 09/01/2020 [facility] DATE CREATED AUTHOR AUTHOR'S ORGANIZ ATION 03/23/2021 [facility] [place] DATE CREATED AUTHOR AUTHOR'S ORGANIZ ATION 04/18/2021 [facility] DATE CREATED AUTHOR AUTHOR'S ORGANIZ ATION 01/31/2023 [facility] DATE CREATED AUTHOR AUTHOR'S ORGANIZ ATION 09/18/2023 [facility] DATE CREATED AUTHOR AUTHOR'S ORGANIZ ATION 11/18/2023 [facility] DATE CREATED AUTHOR AUTHOR'S ORGANIZ ATION 05/07/2024 [facility] DATE CREATED AUTHOR AUTHOR'S ORGANIZ ATION 12/22/2024 [facility] Goals (unrecognized section and content) Goals may be documented in a n alternate sectionGoals may be documented in an alternate sectionGoals may be documented in an alternate sectionGoals may be documented in an alternate sectionGoals may be documented in an alternate sectionGoals may be documented in an alternate sectionGoals may be documented in an alternate sectionGoals may be documented in an alternate sectionGoals may be documented in an alternate sectionGoals may be documented in an alternate sectionGoals may be documented in an alternate sectionGoals may be documented in an alternate sectionGoals may be documented in an alternate sectionGoals may be documented in an alternate sectionGoals may be documented in an alternate sectionGoals may be documented in an alternate sectionGoals may be documented in an alternate sectionGoals may be documented in an alternate sectionGoals may be documented in an alternate sectionGoals may be documented in an alternate sectionGoals may be documented in an alternate sectionGoals may be documented in an alternate section Care Teams (unrecognized sec tion and content) Team Status: Active Member Role Status Dates SB CLEMENT Family Provider Active Dr. Jerrica Marshall MD Primary Care Provider Active Team Status: Inactive Member Role Status Dates Dr. Jerrica Marshall MD Primary Care P rovider, Attending Provider, Referring Provider Active Team Status: Inactive Member Role Status Dates Dr. Jerrica Marshall MD Primary Care Provider Active Dr. Phil Tidwell , Emergency Provider Active Team Status: Inactive Member Role Status Dates Wilber Delong METAL RIVET MACHINE OPERATOR, METAL RIVET MACHINE OPERATOR-C Attending Provider Active Dr. Jerrica Marshall MD Primary Care Provider, Refer ring Provider Active Team Status: Inactive Member Role Status Dates Dr. Jerrica Marshall MD Primary Care Provider Active Dr. Phil Tidwell DO Attending Provider, Emergency P rovider Active Team Status: Inactive Member Role Status Dates Dr. Jerrica Marshall MD Primary Care Provider Active Wilber Delong METAL RIVET MACHINE OPERATOR, METAL RIVET MACHINE OPERATOR-C Attending Provider, Referring Prov ider Active [employer] Technician Relationship Specialty Start Date End Date Felicia Larson [address] [place] [id number] PCP - General 04/10/17 Boubacar Cardoso [address] [place] [address] Anesthesiology 04/30/22 [employer] Technician Relationship Specialty Start Date End Date Felicia Larson [address] [place] [address] PCP - General 04/10/17 Boubacar Cardoso [address] [place] [address] Anesthesiology 04/30/22 [employer] Technician Relationship Specialty Start Date End Date Felicia Larson [address] [place] [phone] PCP - General 04/10/17 Boubacar Cardoso [address] [place], [place] [address] [phone]- Anesthesiology 04/30/22 [employer] Technician Relationship Specialty Start Date End Date Jerrica Marshall MD [address] [address] PCP - General Internal Medicine 08/25/22 Boubacar Cardoso [address] [place], [place] [phone]- Anesthesiology 04/30/22 [employer] Technician Relationship Specialty Start Date End Date Jerrica Marshall MD [address] [address] PCP - General Internal Medicine 08/25/22 Boubacar Cardoso [address] [place] [address] Anesthesiology 04/30/22 [employer] Technician Relationship Specialty Start Date End Date Jerrica Marshall MD [address] [address] PCP - General Internal Medicine 08/25/22 Boubacar Cardoso [address] [place], [place] [phone]- Anesthesiology 04/30/22 Team Status: Inactive Member Role Status Dates Dr. Jerrica Marshall MD Primary Care Provider Active Dr. Boubacar Cardoso MD Attending Provider, Referring Pr ovider Active [employer] Technician Relationship Specialty Start Date End Date Jerrica Marshall MD [address] [phone] PCP - General Internal Medicine 08/25/22 Boubacar Cardoso [address] [place] [address] Anesthesiology 04/30/22 [employer] Technician Relationship Specialty Start Date End Date Jerrica Marshall MD [address] [phone] PCP - General Internal Medicine 08/25/22 Boubacar Cardoso [address] [place] [address] Anesthesiology 04/30/22 [employer] Technician Relationship Specialty Start Date End Date Jerrica Marshall MD [facility] [address] [phone] PCP - General Internal Medicine 08/25/22 Boubacar Cardoso MD [address] [place] [phone] Anesthesiology 04/30/22 [employer] Technician Relationship Specialty Start Date End Date Jerrica Marshall MD [address] [address] PCP - General Internal Medicine 08/25/22 Boubacar Cardoso MD [address] [place] [address] Anesthesiology 04/30/22 [employer] Technician Relationship Specialty Start Date End Date Jerrica Marshall MD [address] [phone] PCP - General Internal Medicine 08/25/22 Boubacar Cardoso MD [address] [place] [phone]- Anesthesiology 04/30/22 Team Status: Inactive Member Role Status Dates Dr. Jerrica Marshall MD Primary Care Provider, Refer ring Provider Active NIMO Granados Attending Provider Active Team Status: Inactive Member Role Status Dates Dr. Jerrica Marshall MD Primary Care Provider Active NIMO Granados Attending Provider, Referring Pro vider Active [employer] Technician Relationship Specialty Start Date End Date Jerrica Marshall MD [address] [phone] PCP - General Internal Medicine 08/25/22 Boubacar Cardoso MD [address] [place] [address] [phone]- Anesthesiology 04/30/22 [employer] Technician Relationship Specialty Start Date End Date Jerrica Marshall MD [address] [phone] PCP - General Internal Medicine 08/25/22 Boubacar Cardoso MD [address] [place] [address] [phone]- Anesthesiology 04/30/22 [employer] Technician Relationship Specialty Start Date End Date Jerrica Marshall MD [address] [phone] PCP - General Internal Medicine 08/25/22 Boubacar Cardoso MD [address] [place], [place] [address] 615- Anesthesiology 04/30/22 Oil [employer] Technician Relationship Specialty Start Date End Date Jerrica Marshall MD [address] [address] PCP - General Internal Medicine 08/25/22 Boubacar Cardoso MD [address] [place] [address] Anesthesiology 04/30/22 [employer] Technician Relationship Specialty Start Date End Date Jerrica Marshall MD [address] [phone] PCP - General Internal Medicine 08/25/22 Boubacar Cardoso MD [address] [place] [phone] Anesthesiology 04/30/22 [employer] Technician Relationship Specialty Start Date End Date Jerrica Marshall MD [address] [address] PCP - General Internal Medicine 08/25/22 Boubacar Cardoso MD [address] [place] [phone] Anesthesiology 04/30/22 [employer] Technician Relationship Specialty Start Date End Date Jerrica Marshall MD [address] [address] PCP - General Internal Medicine 08/25/22 Boubacar Cardoso MD [address] [place], [place] [phone]- Anesthesiology 04/30/22 [employer] Technician Relationship Specialty Start Date End Date Jerrica Marshall MD [address] [phone] PCP - General Internal Medicine 08/25/22 Boubacar Cardoso MD [address] [place] [phone] Anesthesiology 04/30/22 [employer] Technician Relationship Specialty Start Date End Date Jerrica Marshall MD [address] [phone] PCP - General Internal Medicine 08/25/22 Boubacar Cardoso MD [address] [place] [address] [phone]- Anesthesiology 04/30/22 [employer] Technician Relationship Specialty Start Date End Date Jerrica Marshall MD [address] [address] PCP - General Internal Medicine 08/25/22 Boubacar Cardoso MD [address] [place] [address] [phone]- Anesthesiology 04/30/22 [employer] [place] Technician Relationship Specialty Start Date End Date Jerrica Marshall MD [address] [phone] PCP - General Internal Medicine 08/25/22 Boubacar Cardoso MD [address] [place] [address] Anesthesiology 04/30/22 Team Status: Active Member Role Status Dates Dr. Jerrica Marshall MD Primary Care Provider Active Team Status: Inactive Member Role Status Dates Dr. Jerrica Marshall MD Primary Care Provider Active Start: March 08, 2024 End: March 08, 2024 Dr. Jerrica Marshall MD Referring Provider Active Start: March 08, 2024 End: March 08, 2024 Pao Lewis METAL RIVET MACHINE OPERATOR, METAL RIVET MACHINE OPERATOR-C Attending Provider Active Start: March 08, 2024 End: March 08, 2024 Team Status: Inactive Member Role Status Dates Dr. Jerrica Marshall MD Primary Care Provider Active Start: March 30, 2024 End: March 30, 2024 Dr. Cody Turner MD Attending Provider Active Sta rt: March 30, 2024 End: March 30, 2024 Dr. Cody Turner MD Emergency Provider Active Sta rt: March 30, 2024 End: March 30, 2024 Team Status: Inactive Member Role Status Dates Dr. Jerrica Marshall MD Primary Care Provider Active Start: April 05, 2024 End: April 05, 2024 Dr. Jerrica Marshall MD Referring Provider Active Start: April 05, 2024 End: April 05, 2024 Pao Lewis NP, METAL RIVET MACHINE OPERATOR-C Attending Provider Active Start: April 05, 2024 End: April 05, 2024 Team Status: Inactive Member Role Status Dates Dr. Jerrica Marshall MD Primary Care Provider Active Start: May 03, 2024 End: May 03, 2024 Dr. Jerrica Marshall MD Referring Provider Active Start: May 03, 2024 End: May 03, 2024 Pao Lewis NP, METAL RIVET MACHINE OPERATOR-C Attending Provider Active Start: May 03, 2024 End: May 03, 2024 Team Status: Inactive Member Role Status Dates Dr. Jerrica Marshall MD Primary Care Provider Active Start: May 31, 2024 End: May 31, 2024 Dr. Jerrica Marshall MD Referring Provider Active Start: May 31, 2024 End: May 31, 2024 Dr. Ernesto Jaramillo MD Attending Provider Active S tart: May 31, 2024 End: May 31, 2024 Team Status: Inactive Member Role Status Dates Dr. Jerrica Marshall MD Primary Care Provider Active Start: June 29, 2024 End: June 29, 2024 Dr. Jerrica Marshall MD Referring Provider Active Start: June 29, 2024 End: June 29, 2024 Dr. Ernesto Jaramillo MD Attending Provider Active S tart: June 29, 2024 End: June 29, 2024 Team Status: Active Member Role Status Dates Dr. Jerrica Marshall MD Primary Care Provider Active Start: June 29, 2024 Dr. Ernesto Jaramillo MD Attending Provider Active S tart: June 29, 2024 Dr. Ernesto Jaramillo MD Referring Provider Active S tart: June 29, 2024 Pao Lewis NP, METAL RIVET MACHINE OPERATOR-C Other Provider Active St art: June 29, 2024 Team Status: Active Member Role/Relationship Status Dates Dr. Jerrica Marshall MD Primary Care Provider Active Team Status: Inactive Member Role/Relationship Status Dates Dr. Jerrica Marshall MD Primary Care Provider Active Start: May 03, 2024 End: May 03, 2024 Dr. Jerrica Marshall MD Referring Provider Active Start: May 03, 2024 End: May 03, 2024 Pao Lewis METAL RIVET MACHINE OPERATOR, METAL RIVET MACHINE OPERATOR-C Attending Provider Active Start: May 03, 2024 End: May 03, 2024 Team Status: Inactive Member Role/Relationship Status Dates Dr. Jerrica Marshall MD Primary Care Provider Active Start: May 31, 2024 End: May 31, 2024 Dr. Jerrica Marshall MD Referring Provider Active Start: May 31, 2024 End: May 31, 2024 Dr. Ernesto Jaramillo MD Attending Provider Active S tart: May 31, 2024 End: May 31, 2024 Team Status: Inactive Member Role/Relationship Status Dates Dr. Jerrica Marshall MD Primary Care Provider Active Start: June 29, 2024 End: June 29, 2024 Dr. Jerrica Marshall MD Referring Provider Active Start: June 29, 2024 End: June 29, 2024 Dr. Ernesto Jaramillo MD Attending Provider Active S tart: June 29, 2024 End: June 29, 2024 Team Status: Active Member Role/Relationship Status Dates Dr. Jerrica Marshall MD Primary Care Provider Active Start: June 29, 2024 Dr. Ernesto Jaramillo MD Attending Provider Active S tart: June 29, 2024 Dr. Ernesto Jaramillo MD Referring Provider Active S tart: June 29, 2024 Pao Lewis NP METAL RIVET MACHINE OPERATOR-C Other Provider Active St art: June 29, 2024 Team Status: Inactive Member Role/Relationship Status Dates Dr. Jerrica Marshall MD Primary Care Provider Active Start: August 22, 2024 End: August 22, 2024 Dr. Jerrica Marshall MD Attending Provider Active Start: August 22, 2024 End: August 22, 2024 Dr. Jerrica Marshall MD Referring Provider Active Start: August 22, 2024 End: August 22, 2024 Team Status: Inactive Member Role/Relationship Status Dates Dr. Jerrica Marshall MD Primary Care Provider Active Start: August 26, 2024 End: August 26, 2024 Dr. Jerrica Marshall MD Referring Provider Active Start: August 26, 2024 End: August 26, 2024 NIMO Mcguire Attending Provider Active S tart: August 26, 2024 End: August 26, 2024 Team Status: Inactive Member Role/Relationship Status Dates Dr. Jerrica Marshall MD Primary Care Provider Active Start: May 31, 2024 End: May 31, 2024 Dr. Jerrica Marshall MD Referring Provider Active Start: May 31, 2024 End: May 31, 2024 Dr. Ernesto Jaramillo MD Attending Provider Active S tart: May 31, 2024 End: May 31, 2024 Team Status: Inactive Member Role/Relationship Status Dates Dr. Jerrica Marshall MD Primary Care Provider Active Start: June 29, 2024 End: June 29, 2024 Dr. Jerrica Marshall MD Referring Provider Active Start: June 29, 2024 End: June 29, 2024 Dr. Ernesto Jaramillo MD Attending Provider Active S tart: June 29, 2024 End: June 29, 2024 Team Status: Active Member Role/Relationship Status Dates Dr. Jerrica Marshall MD Primary Care Provider Active Start: June 29, 2024 Dr. Ernesto Jaramillo MD Attending Provider Active S tart: June 29, 2024 Dr. Ernesto Jaramillo MD Referring Provider Active S tart: June 29, 2024 Pao Lewis NP, METAL RIVET MACHINE OPERATOR-C Other Provider Active St art: June 29, 2024 Team Status: Inactive Member Role/Relationship Status Dates Dr. Jerrica Marshall MD Primary Care Provider Active Start: August 22, 2024 End: August 22, 2024 Dr. Jerrica Marshall MD Attending Provider Active Start: August 22, 2024 End: August 22, 2024 Dr. Jerrica Marshall MD Referring Provider Active Start: August 22, 2024 End: August 22, 2024 Team Status: Inactive Member Role/Relationship Status Dates Dr. Jerrica Marshall MD Primary Care Provider Active Start: August 26, 2024 End: August 26, 2024 Dr. Jerrica Marshall MD Referring Provider Active Start: August 26, 2024 End: August 26, 2024 NIMO Mcguire Attending Provider Active S tart: August 26, 2024 End: August 26, 2024 Team Status: Active Member Role/Relationship Status Dates Dr. Jerrica Marshall MD Primary Care Provider Active Start: September 13, 2024 MASOUD McguireC Attending Provider Active S tart: September 13, 2024 NIMO Mcguire Referring Provider Active S tart: September 13, 2024 Team Status: Inactive Member Role/Relationship Status Dates Dr. Jerrica Marshall MD Primary Care Provider Active Start: September 14, 2024 End: September 14, 2024 Dr. Jerrica Marshall MD Referring Provider Active Start: September 14, 2024 End: September 14, 2024 Dr. Skyla Schuster MD Attending Provider Active Start: September 14, 2024 End: September 14, 2024 Team Status: Inactive Member Role/Relationship Status Dates Dr. Jerrica Marshall MD Primary Care Provider Active Start: September 13, 2024 End: September 13, 2024 Jigna Brown METAL RIVET MACHINE OPERATOR-C Attending Provider Active S tart: September 13, 2024 End: September 13, 2024 Jigna Brown METAL RIVET MACHINE OPERATOR-C Referring Provider Active S tart: September 13, 2024 End: September 13, 2024 Team Status: Inactive Member Role/Relationship Status Dates Dr. Jerrica Marshall MD Primary Care Provider Active Start: August 22, 2024 End: August 22, 2024 Dr. Jerrica Marshall MD Attending Provider Active Start: August 22, 2024 End: August 22, 2024 Dr. Jerrica Marshall MD Referring Provider Active Start: August 22, 2024 End: August 22, 2024 Team Status: Inactive Member Role/Relationship Status Dates Dr. Jerrica Marshall MD Primary Care Provider Active Start: August 26, 2024 End: August 26, 2024 Dr. Jerrica Marshall MD Referring Provider Active Start: August 26, 2024 End: August 26, 2024 Jigna Brown NP-C Attending Provider Active S tart: August 26, 2024 End: August 26, 2024 Team Status: Inactive Member Role/Relationship Status Dates Dr. Jerrica Marshall MD Primary Care Provider Active Start: September 13, 2024 End: September 13, 2024 Jigna Brown METAL RIVET MACHINE OPERATOR-C Attending Provider Active S tart: September 13, 2024 End: September 13, 2024 Jigna Brown METAL RIVET MACHINE OPERATOR-C Referring Provider Active S tart: September 13, 2024 End: September 13, 2024 Team Status: Inactive Member Role/Relationship Status Dates Dr. Jerrica Marshall MD Primary Care Provider Active Start: September 14, 2024 End: September 14, 2024 Dr. Jerrica Marshall MD Referring Provider Active Start: September 14, 2024 End: September 14, 2024 Dr. Skyla Schuster MD Attending Provider Active Start: September 14, 2024 End: September 14, 2024 Team Status: Active Member Role/Relationship Status Dates Dr. Jerrica Marshall MD Primary Care Provider Active Start: September 21, 2024 Dr. Ernesto Jaramillo MD Attending Provider Active S tart: September 21, 2024 Dr. Ernesto Jaramillo MD Referring Provider Active S tart: September 21, 2024 Pao Lewis METAL RIVET MACHINE OPERATOR, METAL RIVET MACHINE OPERATOR-C Other Provider Active St art: September 21, 2024 Team Status: Inactive Member Role/Relationship Status Dates Dr. Jerrica Marshall MD Primary Care Provider Active Start: September 22, 2024 End: September 22, 2024 Dr. Jerrica Marshall MD Referring Provider Active Start: September 22, 2024 End: September 22, 2024 Dr. Skyla Schuster MD Attending Provider Active Start: September 22, 2024 End: September 22, 2024 Team Status: Active Member Role/Relationship Status Dates Dr. Jerrica Marshall MD Primary Care Provider Active Start: September 22, 2024 Dr. Jerrica Marshall MD Referring Provider Active Start: September 22, 2024 Dr. Skyla Schuster MD Attending Provider Active Start: September 22, 2024 Dr. Skyla Schuster MD Other Provider Active Sta rt: September 22, 2024 Team Status: Inactive Member Role/Relationship Status Dates Dr. Jerrica Marshall MD Primary Care Provider Active Start: June 29, 2024 End: June 29, 2024 Dr. Jerrica Marshall MD Referring Provider Active Start: June 29, 2024 End: June 29, 2024 Dr. Ernesto Jaramillo MD Attending Provider Active S tart: June 29, 2024 End: June 29, 2024 Team Status: Inactive Member Role/Relationship Status Dates Dr. Jerrica Marshall MD Primary Care Provider Active Start: August 22, 2024 End: August 22, 2024 Dr. Jerrica Marshall MD Attending Provider Active Start: August 22, 2024 End: August 22, 2024 Dr. Jerrica Marshall MD Referring Provider Active Start: August 22, 2024 End: August 22, 2024 Team Status: Inactive Member Role/Relationship Status Dates Dr. Jerrica Marshall MD Primary Care Provider Active Start: August 26, 2024 End: August 26, 2024 Dr. Jerrica Marshall MD Referring Provider Active Start: August 26, 2024 End: August 26, 2024 NIMO Mcguire Attending Provider Active S tart: August 26, 2024 End: August 26, 2024 Team Status: Inactive Member Role/Relationship Status Dates Dr. Jerrica Marshall MD Primary Care Provider Active Start: September 13, 2024 End: September 13, 2024 NIMO Mcguire Attending Provider Active S tart: September 13, 2024 End: September 13, 2024 NIMO Mcguire Referring Provider Active S tart: September 13, 2024 End: September 13, 2024 Team Status: Inactive Member Role/Relationship Status Dates Dr. Jerrica Marshall MD Primary Care Provider Active Start: September 14, 2024 End: September 14, 2024 Dr. Jerrica Marshall MD Referring Provider Active Start: September 14, 2024 End: September 14, 2024 Dr. Skyla Schuster MD Attending Provider Active Start: September 14, 2024 End: September 14, 2024 Team Status: Active Member Role/Relationship Status Dates Dr. Jerrica Marshall MD Primary Care Provider Active Start: September 21, 2024 Dr. Ernesto Jaramillo MD Attending Provider Active S tart: September 21, 2024 Dr. Ernesto Jaramillo MD Referring Provider Active S tart: September 21, 2024 Pao Lewis NP METAL RIVET MACHINE OPERATOR-C Other Provider Active St art: September 21, 2024 Team Status: Inactive Member Role/Relationship Status Dates Dr. Jerrica Marshall MD Primary Care Provider Active Start: September 22, 2024 End: September 22, 2024 Dr. Jerrica Marshall MD Referring Provider Active Start: September 22, 2024 End: September 22, 2024 Dr. Skyla Schuster MD Attending Provider Active Start: September 22, 2024 End: September 22, 2024 Team Status: Active Member Role/Relationship Status Dates Dr. Jerrica Marshall MD Primary Care Provider Active Start: September 22, 2024 Dr. Jerrica Marshall MD Referring Provider Active Start: September 22, 2024 Dr. Skyla Schuster MD Attending Provider Active Start: September 22, 2024 Dr. Skyla Schuster MD Other Provider Active Sta rt: September 22, 2024 Team Status: Active Member Role/Relationship Status Dates Dr. Jerrica Marshall MD Primary Care Provider Active Start: October 05, 2024 NIMO Mcguire Attending Provider Active S tart: October 05, 2024 Jigna Brown NP-C Referring Provider Active S tart: October 05, 2024 Team Status: Active Member Role/Relationship Status Dates Dr. Jerrica Marshall MD Primary Care Provider Active Start: October 11, 2024 Dr. Ernesto Jaramillo MD Attending Provider Active S tart: October 11, 2024 Team Status: Inactive Member Role/Relationship Status Dates Dr. Jerrica Marshall MD Primary Care Provider Active Start: October 17, 2024 End: October 17, 2024 Dr. Jerrica Marshall MD Attending Provider Active Start: October 17, 2024 End: October 17, 2024 Dr. Jerrica Marshall MD Referring Provider Active Start: October 17, 2024 End: October 17, 2024 Team Status: Inactive Member Role/Relationship Status Dates Dr. Jerrica Marshall MD Primary Care Provider Active Start: October 05, 2024 End: October 05, 2024 Jigna Brown NP-C Attending Provider Active S tart: October 05, 2024 End: October 05, 2024 Jigna Brown NP-Janet Referring Provider Active S tart: October 05, 2024 End: October 05, 2024 Team Status: Inactive Member Role/Relationship Status Dates Dr. Jerrica Marshall MD Primary Care Provider Active Start: October 17, 2024 End: October 17, 2024 Dr. Jerrica Marshall MD Attending Provider Active Start: October 17, 2024 End: October 17, 2024 Dr. Jerrica Marshall MD Referring Provider Active Start: October 17, 2024 End: October 17, 2024 Team Status: Active Member Role/Relationship Status Dates Dr. Jerrica Marshall MD Primary Care Provider Active Start: October 17, 2024 Dr. Ernesto Jaramillo MD Attending Provider Active S tart: October 17, 2024 Team Status: Inactive Member Role/Relationship Status Dates Dr. Jerrica Marshall MD Primary Care Provider Active Start: October 20, 2024 End: October 20, 2024 Dr. Jerrica Marshall MD Referring Provider Active Start: October 20, 2024 End: October 20, 2024 NIMO Reyes Attending Provider Active Start: October 20, 2024 End: October 20, 2024 Team Status: Active Member Role/Relationship Status Dates Dr. Jerrica Marshall MD Primary care physician Activ e Team Status: Inactive Member Role/Relationship Status Dates Dr. Jerrica Marshall MD Primary care physician Activ e Start: August 22, 2024 End: August 22, 2024 Dr. Jerrica Marshall MD Attending physician Active Start: August 22, 2024 End: August 22, 2024 Dr. Jerrica Marshall MD Referring Provider Active Start: August 22, 2024 End: August 22, 2024 Team Status: Inactive Member Role/Relationship Status Dates Dr. Jerrica Marshall MD Primary care physician Activ e Start: August 26, 2024 End: August 26, 2024 Dr. Jerrica Marshall MD Referring Provider Active Start: August 26, 2024 End: August 26, 2024 NIMO Mcguire Attending physician Active Start: August 26, 2024 End: August 26, 2024 Team Status: Inactive Member Role/Relationship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
[2025-01-06 10:32] VITALS: BP 125/70; PULSE 58; RESP 16; TEMP 35.9; O2SAT 100
== END 2025-01-06 23:59 | disposition home or self-care (01) ==
LOC: MEDOUTP 10:09
PROVIDERS: PCP Internal Medicine; Referring Provider Internal Medicine; Visit Provider Internal Medicine
DX: M86.00 Acute hematogenous osteomyelitis, unspecified site (principal)
CPT/HCPCS: 96372; J3111

== ENCOUNTER → 2025-01-31 | Outpatient (CLI) | payer MEDICARE, SELFPAY ==
[2025-01-31 12:49] LABS: Barbiturate Urine NEGATIVE (< 200 ng/mL); Benzodiazepine Urine NEGATIVE (< 200 ng/mL); PCP Urine NEGATIVE (< 25 ng/mL); THC Urine PRESUMPTIVE POSITIVE (< 50 ng/mL)
== END | disposition home or self-care (01) ==
LOC: LAB 11:02
PROVIDERS: PCP Internal Medicine; Referring Provider Anesthesiology Pain Medicine; Visit Provider Anesthesiology Pain Medicine
DX: F11.20 Opioid dependence, uncomplicated (principal)
CPT/HCPCS: 80307

== ENCOUNTER 2025-02-03 11:03 | Outpatient (CLI) | payer MEDICARE, MEDICAID, SELFPAY ==
[2025-02-03 11:12] VITALS: BP 128/79; PULSE 90; RESP 16; TEMP 36.2; O2SAT 98
--- OUTSIDE RECORDS SUMMARY | 2025-02-03 11:23 | XMS RPT_ITS | CCD ---
Author Organization [facility] Care Team Providers Care Barking Machine Feeder Name Role Phone IMCA Unavailable Unavailable TERELL ANGELICA Unavailable Unavailable ELIZABETH TOOMAS S Referring Unavailable [...] MORGAN Consulting Unavailable SHAZIA MCCRAY Consulting Unavailable SOUZSANTOS, ROSEANN Consulting Unavailabl e FILOMENA LAMA Consulting [...] Dr. Jerrica Marshall Referring Provider [phone] Ekaterina PARA MACHINE OPERATOR, PARA MACHINE OPERATOR-C Maria Isabel Attending Provider AZEEM Gamino Attending Provider UnavailDr. Jerrica Cárdenas Primary Care Provider [phone] Dr. Jerrica Marshall Attending Provider [phone] Dr. Jerrica Marshall Referring Provider [phone] Sindi PARA MACHINE OPERATOR, PARA MACHINE OPERATOR-C Wilber Attending Provider [phone] Dr. Jerrica Marshall Primary Care Provider [phone] Dr. Jerrica Marshall Referring Provider [phone] Felicia Larson Primary Care Provider Boubacar Cardoso Unavailable Felicia Larson Primary Care Provider [phone] Jerrica Marshall MD Primary Care Provider [phone] Rolando PEÑA, Dr. Pastrana Referring Provider Joshua PARA MACHINE OPERATOR-C, Pao Attending Provider Johnny PEÑA, Dr. Ross Attending Provider Johnny PEÑA, Dr. Ross Emergency Provider Ella PEÑA, Dr. Orozco Attending Provider Ella PEÑA, Dr. Orozco Referring Provider Joshua PARA MACHINE OPERATOR-C, Pao Other Provider Rolando PEÑA, Dr. Pastrana Primary Care Provider Rolando PEÑA, Dr. Pastrana Referring Provider Joshua PARA MACHINE OPERATOR-C, Pao Attending Provider Rolando PEÑA, Dr. Pastrana Attending Provider Brown PARA MACHINE OPERATOR-C, Jigna Attending Provider Rolando PEÑA, Dr. Pastrana Primary Care Provider Rolando PEÑA, Dr. Pastrana Referring Provider Kevin PARA MACHINE OPERATOR-C, Jigna Referring Provider Dr. Skyla Schuster MD Attending Provider Ella PEÑA, Dr. Orozco Referring Provider Joshua PARA MACHINE OPERATOR-C, Pao Other Provider Landen PEÑA, Dr. Le Other Provider Rolando PEÑA, Dr. Pastrana Primary Care Provider Rolando PEÑA, Dr. Pastrana Referring Provider Ella PEÑA, Dr. Orozco Attending Provider Esteban PARA MACHINE OPERATOR-C, Juli Attending Provider Rolando PEÑA, Dr. Pastrana Primary Care Physician Rolando PEÑA, Dr. Pastrana Attending Physician [phone] Rolando PEÑA, Dr. Pastrana Referring Provider [phone] Kevin FRANKLIN-C, Jigna Attending Physician Landen PEÑA, Dr. Le Attending Physician Landen PEÑA, Dr. Le Nurse Practitioner Ella PEÑA, Dr. Orozco Attending Physician Esteban PARA MACHINE OPERATOR-C, Juli Attending Physician Ella PEÑA, Dr. Orozco Referring Provider Joshua PARA MACHINE OPERATOR-C, Pao Nurse Practitioner Oleghe, Efewongbe [...] Attending Unavailable Ernesto Jaramillo Referring Unavailable Joshua PARA MACHINE OPERATOR, Pao Consulting Unavailable Oleghe, Efewongbe [...] Unavailable Oleghe, Efewongbe Primary Care Unavailable Joshua PARA MACHINE OPERATOR, Pao Attending Unavailable Oleghe, Efewongbe Referring Unavailable Oleghe, Efewongbe Primary Care Unavailable Oleghe, Efewongbe Attending Unavailable Oleghe, Efewongbe Referring Unavailable Oleghe, Efewongbe Primary Care Unavailable Joshua PARA MACHINE OPERATOR, Pao Attending Unavailable Oleghe, Efewongbe [...] Unavailable Oleghe, Efewongbe Primary Care Unavailable Joshua PARA MACHINE OPERATOR, Pao Attending Unavailable Oleghe, Efewongbe Primary Care Unavailable Jigna Brown Attending Unavailable Jigna Brown Referring Unavailable Oleghe, Efewongbe Referring Unavailable Oleghe, Efewongbe Primary Care Unavailable Joshua PARA MACHINE OPERATOR, Pao Attending Unavailable Oleghe, Efewongbe Referring Unavailable Oleghe, Efewongbe Primary Care Unavailable Ernesto Jaramillo Attending Unavailable Oleghe, Efewongbe Referring Unavailable Oleghe, Efewongbe Primary Care Unavailable Joshua PARA MACHINE OPERATOR, Pao Attending Unavailable Oleghe, Efewongbe [...] / HYDROcodone Drug Allergy 06-22-19 13 Vomiting [facility] Opioid Agonists (1 source) Codeine Drug Allergy 06-22-19 13 Hives, GI Upset [facility] (20 sources) acetaminophen / HYDROcodone; Translations: [HYDROCODONE-ACET AMINOPHEN] Drug Allergy 06-22-19 13 Vomiting [facility] (20 sources) codeine; Translations: [CODEINE] Drug Allergy 06-22-19 13 Hives, GI Upset [facility] (20 sources) BEE STING; Translations: [BEE STING] Propensity to adverse reactions (disorder) 06-22-19 13 Swelling [facility] (20 sources) HYDROcodone Drug Allergy 04-19-19 22 Nausea [facility] (2 sources) Acetaminophen / HYDROcodone; Translations: [ACETAMINOPHEN-HY DROCODONE] Drug Allergy 01-07-20 23 [facility] (2 sources) bee venom; Translations: [BEE VENOM] Propensity to adverse reactions to drug 06-22-19 13 Swelling [facility] (1 source) HYDROcodone Drug Allergy 12-22-19 25 [facility] Repository Medications Current Medications Medication Drug Class(es) [...] Comment on above: Take 2 capsules by [facility] three times daily. cholecalciferol 0.025 mg ora [...] Active Start: 06-21-2012 take 1 capsule by [facility] once daily Cholecalciferol, Vitamin D3, 5,000 unit cap Take 1 capsule by mouth once daily. 0 06/21/2012 Active Comment on above: Take 1 capsule by [facility] once daily. cyclobenzaprine hydrochloride 10 mg oral tablet (1 source) Muscle Relaxant Start: End: take 1 tablet by mouth every eight hours as needed cyclobenzaprine (FLEXERIL) 10 mg tablet Take 1 tablet by mouth three times daily as needed for muscle spasm for up to 7 days. 21 tablet 0 08/28/2022 09/04/2022 Active Comment on above: Take 1 tablet by [facility] three times daily as needed for muscle spasm for up to 7 days. dicloxacillin 500 mg oral capsule (1 source) Penicillin-class Antibacterial Start: End: take 1 capsule by mouth four times daily dicloxacillin (DYNAPEN) 500 mg capsule Take 1 capsule by mouth four times daily. 248 capsule 0 08/28/2022 10/29/2022 Active Comment on above: Take 1 capsule by [facility] four times daily. gabapentin 300 mg oral capsule (20 sources) Anti-epileptic Agent Start: 024 take 1 capsule by mouth twice daily gabapentin (NEURONTIN) 300 mg capsule Take 300 mg by mouth two times a day. 09/02/2023 Active Start: 02-06-2021 take 2 tablets by [facility] once daily at bedtime Gabapentin Active 300 [...] grade I, lymph nodes of multiple sites [id number] 200 actuat albuterol 0.09 mg/actuat metered dose [...] Comment on above: Take 1 capsule by [facility] twice daily. 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, [address] CBC W/Diff, Automatedon 12-10 Absolute Lymph 0.42 X10 3/uL Low 0.83-4.51 [facility] Comment on above: Performed By: #### L 500.4050, L100.0100, L503.6030, L504.2610, L503.6550 ####[facility] [address] [place], [address] Absolute Neut 3.3 X10 3/uL Normal 2.0-7.7 [facility] Comment on above: Performed By: #### L 500.4050, L100.0100, L503.6030, L504.2610, L503.6550 ####[facility] [address] [place], [address] Basophils/100 WBC (Bld) 0.7 % Normal 0-1 [facility] Comment on above: Performed By: #### L 500.4050, L100.0100, L503.6030, L504.2610, L503.6550 ####[facility] [address] [place], [address] Eosinophils/100 WBC (Bld) 0.7 % Normal 0-5 [facility] Comment on above: Performed By: #### L 500.4050, L100.0100, L503.6030, L504.2610, L503.6550 ####[facility] [address] [place], [address] Erythrocyte distribution width (RBC) [Ratio] 12.0 % Normal 11.6-14.6 [facility] Comment on above: Performed By: #### L 500.4050, L100.0100, L503.6030, L504.2610, L503.6550 ####[facility] [address] [place], [address] Hematocrit (Bld) [Volume fraction] 34.1 % Low 37-47 [facility] Comment on above: Performed By: #### L 500.4050, L100.0100, L503.6030, L504.2610, L503.6550 ####[facility] [address] [place], [address] Hemoglobin (Bld) [Mass/Vol] 11.9 g/dL Low 12.0-15.0 [facility] Comment on above: Performed By: #### L 500.4050, L100.0100, L503.6030, L504.2610, L503.6550 ####[facility] [address] [place], [address] IG% 2.600 High 0.0-0.9 [facility] Comment on above: Result Comment: IG% - Immature Granulocytes (promyelocytes, myelocytes andmetamyelocytes) > 1% indicates that a LEFT SHIFT is Present. Performed By: #### L 500.4050, L100.0100, L503.6030, L504.2610, L503.6550 ####[facility] [address] [place], [address] Lymphocytes/100 WBC (Bld) 9.8 % Low 19-41 [facility] Comment on above: Performed By: #### L 500.4050, L100.0100, L503.6030, L504.2610, L503.6550 ####[facility] [address] [place], [address] MCH (RBC) [Entitic mass] 33.1 pg High 27.0-32.0 [facility] Comment on above: Performed By: #### L 500.4050, L100.0100, L503.6030, L504.2610, L503.6550 ####[facility] [address] [place], [address] MCHC (RBC) [Mass/Vol] 34.9 g/dL Normal 32-36 [facility] Comment on above: Performed By: #### L 500.4050, L100.0100, L503.6030, L504.2610, L503.6550 ####[facility] [address] [place], [address] MCV (RBC) [Entitic vol] 94.7 fL Normal 81-99 [facility] Comment on above: Performed By: #### L 500.4050, L100.0100, L503.6030, L504.2610, L503.6550 ####[facility] [address] [place], [address] Monocytes/100 WBC (Bld) 9.8 % Normal 0-10 [facility] Comment on above: Performed By: #### L 500.4050, L100.0100, L503.6030, L504.2610, L503.6550 ####[facility] [address] [place], [address] Neutrophils/100 WBC (Bld) 76.4 % High 47-70 [facility] Comment on above: Performed By: #### L 500.4050, L100.0100, L503.6030, L504.2610, L503.6550 ####[facility] [address] [place], [address] Nucleated RBC (Bld) [#/Vol] 0 10*3/uL Normal 0-5 [facility] Comment on above: Performed By: #### L 500.4050, L100.0100, L503.6030, L504.2610, L503.6550 ####[facility] [address] [place], [address] Platelet mean volume (Bld) [Entitic vol] 8.9 fL Normal 6.2-12.0 [facility] Comment on above: Performed By: #### L 500.4050, L100.0100, L503.6030, L504.2610, L503.6550 ####[facility] [address] [place], [address] Platelets (Bld) [#/Vol] 213 10*3/uL Normal 150-450 [facility] Comment on above: Performed By: #### L 500.4050, L100.0100, L503.6030, L504.2610, L503.6550 ####[facility] [address] [place], [address] RBC (Bld) [#/Vol] 3.60 10*6/uL Low 4.2-5.4 [facility] Comment on above: Performed By: #### L 500.4050, L100.0100, L503.6030, L504.2610, L503.6550 ####[facility] [address] [place], [address] RDW SD 41.8 fl Normal 35.1-43.9 [facility] Comment on above: Performed By: #### L 500.4050, L100.0100, L503.6030, L504.2610, L503.6550 ####[facility] [address] [place], [address] WBC (Bld) [#/Vol] 4.3 10*3/uL Low 4.4-11.0 [facility] Comment on above: Performed By: #### L 500.4050, L100.0100, L503.6030, L504.2610, L503.6550 ####[facility] [address] [place], [address] Comprehensive Metabolic Prof mnon 12-21-2024 Albumin [Mass/Vol] 4.3 g/dL Normal 3.4-4.8 [facility] Comment on above: Performed By: #### L 500.4050, L100.0100, L503.6030, L504.2610, L503.6550 ####[facility] [address] [place], [address] Albumin/Globulin [Mass ratio] 1.8 {ratio} Normal 0.9-2.4 [facility] Comment on above: Performed By: #### L 500.4050, L100.0100, L503.6030, L504.2610, L503.6550 ####[facility] [address] [place], [address] ALK PHOS 213 U/L High 35-104 [facility] Comment on above: Performed By: #### L 500.4050, L100.0100, L503.6030, L504.2610, L503.6550 ####[facility] [address] [place], [address] ALT [Catalytic activity/Vol] 15 U/L Normal <=34 [facility] Comment on above: Performed By: #### L 500.4050, L100.0100, L503.6030, L504.2610, L503.6550 ####[facility] [address] [place], [address] AST [Catalytic activity/Vol] 22 U/L Normal <=31 [facility] Comment on above: Performed By: #### L 500.4050, L100.0100, L503.6030, L504.2610, L503.6550 ####[facility] [address] [place], [address] Bilirubin [Mass/Vol] 0.26 mg/dL Normal 0.00-1.30 [facility] Comment on above: Performed By: #### L 500.4050, L100.0100, L503.6030, L504.2610, L503.6550 ####[facility] [address] [place], [address] BUN/CRE 15.0 RATIO Normal 10-20 [facility] Comment on above: Performed By: #### L 500.4050, L100.0100, L503.6030, L504.2610, L503.6550 ####[facility] [address] [place], [address] Calcium [Mass/Vol] 9.2 mg/dL Normal 7.6-11.0 [facility] Comment on above: Performed By: #### L 500.4050, L100.0100, L503.6030, L504.2610, L503.6550 ####[facility] [address] [place], [address] Chloride [Moles/Vol] 102 mmol/L Normal 98-108 [facility] Comment on above: Performed By: #### L 500.4050, L100.0100, L503.6030, L504.2610, L503.6550 ####[facility] [address] [place], [address] CO2 [Moles/Vol] 22.2 mmol/L Normal 21.0-32.0 [facility] Comment on above: Performed By: #### L 500.4050, L100.0100, L503.6030, L504.2610, L503.6550 ####[facility] [address] [place], [address] Creatinine [Mass/Vol] 0.63 mg/dL Low 0.70-1.20 [facility] Comment on above: Performed By: #### L 500.4050, L100.0100, L503.6030, L504.2610, L503.6550 ####[facility] [address] [place], [address] ECRCL 50.36 ml/min Normal 50-250 [facility] Comment on above: Performed By: #### L 500.4050, L100.0100, L503.6030, L504.2610, L503.6550 ####[facility] [address] [place], [address] GAP 9 Normal 5-15 [facility] Comment on above: Performed By: #### L 500.4050, L100.0100, L503.6030, L504.2610, L503.6550 ####[facility] [address] [place], [address] GFR/1.73 sq M.predicted among non-blacks MDRD (S/P/Bld) [Vol rate/Area] 98 mL/min/{1.73_m2} Normal >60 [facility] Comment on above: Result Comment: mL/m in/1.73m2 CKD-EPI Creatinine Equation (2020) Performed By: #### L 500.4050, L100.0100, L503.6030, L504.2610, L503.6550 ####[facility] [address] [place], [address] Globulin (S) [Mass/Vol] 2.3 g/dL Normal 2.2-4.2 [facility] Comment on above: Performed By: #### L 500.4050, L100.0100, L503.6030, L504.2610, L503.6550 ####[facility] [address] [place], [address] Glucose [Mass/Vol] 111 mg/dL High 70-99 [facility] Comment on above: Performed By: #### L 500.4050, L100.0100, L503.6030, L504.2610, L503.6550 ####[facility] [address] [place], [address] Potassium [Moles/Vol] 4.2 mmol/L Normal 3.3-5.1 [facility] Comment on above: Performed By: #### L 500.4050, L100.0100, L503.6030, L504.2610, L503.6550 ####[facility] [address] [place], [address] Sodium [Moles/Vol] 133 mmol/L Normal 133-145 [facility] Comment on above: Performed By: #### L 500.4050, L100.0100, L503.6030, L504.2610, L503.6550 ####[facility] [address] [place], [address] T PROT 6.6 g/dL Normal 5.9-8.4 [facility] Comment on above: Performed By: #### L 500.4050, L100.0100, L503.6030, L504.2610, L503.6550 ####[facility] [address] [place], [address] Urea nitrogen [Mass/Vol] 9 mg/dL Normal 4-19 [facility] Comment on above: Performed By: #### L 500.4050, L100.0100, L503.6030, L504.2610, L503.6550 ####[facility] [address] [place], [address] Ferritinon 12-21-2024 Ferritin [Mass/Vol] 459 ng/mL High 22-378 [facility] Comment on above: Performed By: #### L 500.4050, L100.0100, L503.6030, L504.2610, L503.6550 ####[facility] [address] [place], [address] Iron+Iron Binding Capacityon 12-21-2024 Iron [Mass/Vol] 82 ug/dL Normal 50-170 [facility] Comment on above: Performed By: #### L 500.4050, L100.0100, L503.6030, L504.2610, L503.6550 ####[facility] [address] [place], [address] IRON SATURATION 33.6 Normal 13-59 [facility] Comment on above: Performed By: #### L 500.4050, L100.0100, L503.6030, L504.2610, L503.6550 ####[facility] [address] [place], [address] TIBC 243 ug/dL Low 250-450 [facility] Comment on above: Performed By: #### L 500.4050, L100.0100, L503.6030, L504.2610, L503.6550 ####[facility] [address] [place], [address] UIBC 161 ug/dL Low 228-428 [facility] Comment on above: Performed By: #### L 500.4050, L100.0100, L503.6030, L504.2610, L503.6550 ####[facility] [address] [place], [address] LDHon 12-21-2024 LDH 193 U/L Normal 84-246 [facility] Comment on above: Order Comment: 1 Performed By: #### L 500.4050, L100.0100, L503.6030, L504.2610, L503.6550 ####[facility] [address] [place], [address] Oncology Visit Reporton 12-10 Oncology Visit Report Normal [facility] Internal Medicine Office Vis iton 12-20-2024 Internal Medicine Office Visit Normal [facility] Gastroenterology Visit Repor ton 10-20-2024 Gastroenterology Visit Report Normal [facility] Internal Medicine Office Vis iton 10-17-2024 Internal Medicine Office Visit Normal [facility] Abdomen/Pelvis WITH Contrast on 10-05-2024 Abdomen/Pelvis WITH Contrast Normal [facility] EGD Reporton 09-22-2024 EGD Report Normal [facility] Immunohistochemical Stainson 09-22-2024 Immunohistochemical Stains Normal [facility] Comment on above: Performed By: #### P IMHI ####[facility] [address] [place], [address] MR/OP.PROVATon 09-22-2024 MR/OP.PROVAT Normal [facility] MR/POSTOP.ANEon 09-22-2024 MR/POSTOP.ANE Normal [facility] MR/ZISRBNEP0eg 09-22-2024 MR/POSTOPAN2 Normal [facility] MR/PAT.ANEon 09-21-2024 MR/PAT.ANE Normal [facility] Surgery Visit Reporton 09-14 Surgery Visit Report Normal [facility] Gastric Emptying Studyon Gastric Emptying Study Normal [facility] Gastroenterology Visit Repor ton 08-26-2024 Gastroenterology Visit Report Normal [facility] Internal Medicine Office Vis iton 08-22-2024 Internal Medicine Office Visit Normal [facility] Absolute lymphocyte countOrd ered By: Ernesto Jaramillo on 06-29-2024 Lymphocytes Auto (Unsp spec) [#/Vol] 0.54 10*3/uL Low 0.83-4.51 [facility] Absolute neutrophil countOrd ered By: Ernesto Jaramillo on 06-29-2024 Neutrophils (Bld) [#/Vol] 2.1 10*3/uL 2.0-7.7 [facility] Anion gap in Serum or Plasma Ordered By: Ernesto Jaramillo on 06-29-2024 Anion gap [Moles/Vol] 10 mmol/L 5-15 [facility] Automated lymphocyte count a s percentage of total leukocytesOrdered By: Ernesto Jaramillo on 06-29-2024 Lymphocytes/100 WBC Auto (Unsp spec) 17.0 % Low 19-41 [facility] BUN/creatinine ratioOrdered By: Ernesto Jaramillo on 06-29-2024 Urea nitrogen/Creatinine [Mass ratio] 18.4 mg/mg 10-20 [facility] Basophil percentageOrdered B y: Ernesto Jaramillo on 06-29-2024 Basophils/100 WBC (Bld) 0.3 % 0-1 [facility] Bilirubin, totalOrdered By: Ernesto Jaramillo on 06-29-2024 Bilirubin [Mass/Vol] 0.18 mg/dL 0.00-1.30 [facility] CBC W/Diff, Automatedon 06-10-2024 Absolute Lymph 0.54 X10 3/uL Low 0.83-4.51 [facility] Comment on above: Performed By: #### L 501.6710, L501.1400, L504.2610, L503.6030, L500.4050, L503.6550, L100.0100, L503.0106, L101.9900 ####[facility] [address] [place], [address] Absolute Neut 2.1 X10 3/uL Normal 2.0-7.7 [facility] Comment on above: Performed By: #### L 501.6710, L501.1400, L504.2610, L503.6030, L500.4050, L503.6550, L100.0100, L503.0106, L101.9900 ####[facility] [address] [place], [address] Basophils/100 WBC (Bld) 0.3 % Normal 0-1 [facility] Comment on above: Performed By: #### L 501.6710, L501.1400, L504.2610, L503.6030, L500.4050, L503.6550, L100.0100, L503.0106, L101.9900 ####[facility] [address] [place], [address] Eosinophils/100 WBC (Bld) 0.0 % Normal 0-5 [facility] Comment on above: Performed By: #### L 501.6710, L501.1400, L504.2610, L503.6030, L500.4050, L503.6550, L100.0100, L503.0106, L101.9900 ####[facility] [address] [facility] [place], [address] Erythrocyte distribution width (RBC) [Ratio] 12.9 % Normal 11.6-14.6 [facility] Comment on above: Performed By: #### L 501.6710, L501.1400, L504.2610, L503.6030, L500.4050, L503.6550, L100.0100, L503.0106, L101.9900 ####[facility] [address] [facility]. [place], [place], [phone] Hematocrit (Bld) [Volume fraction] 32.7 % Low 37-47 [facility] Comment on above: Performed By: #### L 501.6710, L501.1400, L504.2610, L503.6030, L500.4050, L503.6550, L100.0100, L503.0106, L101.9900 ####[facility] [address] [facility] [place], [address] Hemoglobin (Bld) [Mass/Vol] 11.6 g/dL Low 12.0-15.0 [facility] Comment on above: Performed By: #### L 501.6710, L501.1400, L504.2610, L503.6030, L500.4050, L503.6550, L100.0100, L503.0106, L101.9900 ####[facility] [address] [facility] [place], [address] IG% 0.600 Normal 0.0-0.9 [facility] Comment on above: Result Comment: IG% - Immature Granulocytes (promyelocytes, myelocytes andmetamyelocytes) > 1% indicates that a LEFT SHIFT is Present. Performed By: #### L 501.6710, L501.1400, L504.2610, L503.6030, L500.4050, L503.6550, L100.0100, L503.0106, L101.9900 ####[facility] [address] [place], [address] Lymphocytes/100 WBC (Bld) 17.0 % Low 19-41 [facility] Comment on above: Performed By: #### L 501.6710, L501.1400, L504.2610, L503.6030, L500.4050, L503.6550, L100.0100, L503.0106, L101.9900 ####[facility] [address] [place], [address] MCH (RBC) [Entitic mass] 34.9 pg High 27.0-32.0 [facility] Comment on above: Performed By: #### L 501.6710, L501.1400, L504.2610, L503.6030, L500.4050, L503.6550, L100.0100, L503.0106, L101.9900 ####[facility] [address], [address] MCHC (RBC) [Mass/Vol] 35.5 g/dL Normal 32-36 [facility] Comment on above: Performed By: #### L 501.6710, L501.1400, L504.2610, L503.6030, L500.4050, L503.6550, L100.0100, L503.0106, L101.9900 ####[facility] [address] [place], [address] MCV (RBC) [Entitic vol] 98.5 fL Normal 81-99 [facility] Comment on above: Performed By: #### L 501.6710, L501.1400, L504.2610, L503.6030, L500.4050, L503.6550, L100.0100, L503.0106, L101.9900 ####[facility] [address] [place], [address] Monocytes/100 WBC (Bld) 16.4 % High 0-10 [facility] Comment on above: Performed By: #### L 501.6710, L501.1400, L504.2610, L503.6030, L500.4050, L503.6550, L100.0100, L503.0106, L101.9900 ####[facility] [address] [place], [address] Neutrophils/100 WBC (Bld) 65.7 % Normal 47-70 [facility] Comment on above: Performed By: #### L 501.6710, L501.1400, L504.2610, L503.6030, L500.4050, L503.6550, L100.0100, L503.0106, L101.9900 ####[facility] [address] [place], [address] Nucleated RBC (Bld) [#/Vol] 0 10*3/uL Normal 0-5 [facility] Comment on above: Performed By: #### L 501.6710, L501.1400, L504.2610, L503.6030, L500.4050, L503.6550, L100.0100, L503.0106, L101.9900 ####[facility] [address] [place], [address] Platelet mean volume (Bld) [Entitic vol] 9.0 fL Normal 6.2-12.0 [facility] Comment on above: Performed By: #### L 501.6710, L501.1400, L504.2610, L503.6030, L500.4050, L503.6550, L100.0100, L503.0106, L101.9900 ####[facility] [address] [place], [address] Platelets (Bld) [#/Vol] 163 10*3/uL Normal 150-450 [facility] Comment on above: Performed By: #### L 501.6710, L501.1400, L504.2610, L503.6030, L500.4050, L503.6550, L100.0100, L503.0106, L101.9900 ####[facility] [address] [place], [address] RBC (Bld) [#/Vol] 3.32 10*6/uL Low 4.2-5.4 [facility] Comment on above: Performed By: #### L 501.6710, L501.1400, L504.2610, L503.6030, L500.4050, L503.6550, L100.0100, L503.0106, L101.9900 ####[facility] [address] [place], [address] RDW SD 46.0 fl High 35.1-43.9 [facility] Comment on above: Performed By: #### L 501.6710, L501.1400, L504.2610, L503.6030, L500.4050, L503.6550, L100.0100, L503.0106, L101.9900 ####[facility] [address] [place], [address] WBC (Bld) [#/Vol] 3.2 10*3/uL Low 4.4-11.0 [facility] Comment on above: Performed By: #### L 501.6710, L501.1400, L504.2610, L503.6030, L500.4050, L503.6550, L100.0100, L503.0106, L101.9900 ####[facility] [address] [place], [address] CRPon 05-21-2025 C-REACTIVE PROT < 3.00 Normal 0.0-3.0 [facility] Comment on above: Performed By: #### L 501.6710, L501.1400, L504.2610, L503.6030, L500.4050, L503.6550, L100.0100, L503.0106, L101.9900 ####[facility] [address] [place], [place], [phone] Carbon dioxide, total [Moles /volume] in Central venous bloodOrdered By: Ernesto Jaramillo on 06-29-2024 CO2 [Moles/Vol] 23.2 mmol/L 21.0-32.0 [facility] Chloride assayOrdered By: Hue Jaramillo on 06-29-2024 Chloride [Moles/Vol] 101 mmol/L 98-108 [facility] Comprehensive Metabolic Prof ilon 06-29-2024 Albumin [Mass/Vol] 4.2 g/dL Normal 3.4-4.8 [facility] Comment on above: Performed By: #### L 501.6710, L501.1400, L504.2610, L503.6030, L500.4050, L503.6550, L100.0100, L503.0106, L101.9900 ####[facility] [address] [place], [place], [phone]) Albumin/Globulin [Mass ratio] 1.8 {ratio} Normal 0.9-2.4 [facility] Comment on above: Performed By: #### L 501.6710, L501.1400, L504.2610, L503.6030, L500.4050, L503.6550, L100.0100, L503.0106, L101.9900 ####[facility] [address] [place], [address] ALK PHOS 102 U/L Normal 35-104 [facility] Comment on above: Performed By: #### L 501.6710, L501.1400, L504.2610, L503.6030, L500.4050, L503.6550, L100.0100, L503.0106, L101.9900 ####[facility] [address] [place], [place], [phone] ALT [Catalytic activity/Vol] 25 U/L Normal <=34 [facility] Comment on above: Performed By: #### L 501.6710, L501.1400, L504.2610, L503.6030, L500.4050, L503.6550, L100.0100, L503.0106, L101.9900 ####[facility] [address] [place], [place], [phone] AST [Catalytic activity/Vol] 31 U/L Normal <=31 [facility] Comment on above: Performed By: #### L 501.6710, L501.1400, L504.2610, L503.6030, L500.4050, L503.6550, L100.0100, L503.0106, L101.9900 ####[facility] [address] [place], [place], [phone] Bilirubin [Mass/Vol] 0.18 mg/dL Normal 0.00-1.30 [facility] Comment on above: Performed By: #### L 501.6710, L501.1400, L504.2610, L503.6030, L500.4050, L503.6550, L100.0100, L503.0106, L101.9900 ####[facility] [address] [place], [place], [phone] BUN/CRE 18.4 RATIO Normal 10-20 [facility] Comment on above: Performed By: #### L 501.6710, L501.1400, L504.2610, L503.6030, L500.4050, L503.6550, L100.0100, L503.0106, L101.9900 ####[facility] [address] [place], [address] Calcium [Mass/Vol] 9.5 mg/dL Normal 7.6-11.0 [facility] Comment on above: Performed By: #### L 501.6710, L501.1400, L504.2610, L503.6030, L500.4050, L503.6550, L100.0100, L503.0106, L101.9900 ####[facility] [address] [place], [address] Chloride [Moles/Vol] 101 mmol/L Normal 98-108 [facility] Comment on above: Performed By: #### L 501.6710, L501.1400, L504.2610, L503.6030, L500.4050, L503.6550, L100.0100, L503.0106, L101.9900 ####[facility] [address] [place], [address] CO2 [Moles/Vol] 23.2 mmol/L Normal 21.0-32.0 [facility] Comment on above: Performed By: #### L 501.6710, L501.1400, L504.2610, L503.6030, L500.4050, L503.6550, L100.0100, L503.0106, L101.9900 ####[facility] [address] [place], [address] Creatinine [Mass/Vol] 0.72 mg/dL Normal 0.70-1.20 [facility] Comment on above: Performed By: #### L 501.6710, L501.1400, L504.2610, L503.6030, L500.4050, L503.6550, L100.0100, L503.0106, L101.9900 ####[facility] [address] [place], [address] ECRCL 56.70 ml/min Normal 50-250 [facility] Comment on above: Performed By: #### L 501.6710, L501.1400, L504.2610, L503.6030, L500.4050, L503.6550, L100.0100, L503.0106, L101.9900 ####[facility] [address] [place], [place], [phone] GAP 10 Normal 5-15 [facility] Comment on above: Performed By: #### L 501.6710, L501.1400, L504.2610, L503.6030, L500.4050, L503.6550, L100.0100, L503.0106, L101.9900 ####[facility] [address] [place], [place], [phone] GFR/1.73 sq M.predicted among non-blacks MDRD (S/P/Bld) [Vol rate/Area] 94 mL/min/{1.73_m2} Normal >60 [facility] Comment on above: Result Comment: mL/m in/1.73m2 CKD-EPI Creatinine Equation (2020) Performed By: #### L 501.6710, L501.1400, L504.2610, L503.6030, L500.4050, L503.6550, L100.0100, L503.0106, L101.9900 ####[facility] [address] [place], [place], [phone] Globulin (S) [Mass/Vol] 2.4 g/dL Normal 2.2-4.2 [facility] Comment on above: Performed By: #### L 501.6710, L501.1400, L504.2610, L503.6030, L500.4050, L503.6550, L100.0100, L503.0106, L101.9900 ####[facility] [address] [place], [address] Glucose [Mass/Vol] 96 mg/dL Normal 70-99 [facility] Comment on above: Performed By: #### L 501.6710, L501.1400, L504.2610, L503.6030, L500.4050, L503.6550, L100.0100, L503.0106, L101.9900 ####[facility] [address] [place], [address] Potassium [Moles/Vol] 4.2 mmol/L Normal 3.3-5.1 [facility] Comment on above: Performed By: #### L 501.6710, L501.1400, L504.2610, L503.6030, L500.4050, L503.6550, L100.0100, L503.0106, L101.9900 ####[facility] [address] [place], [address] Sodium [Moles/Vol] 134 mmol/L Normal 133-145 [facility] Comment on above: Performed By: #### L 501.6710, L501.1400, L504.2610, L503.6030, L500.4050, L503.6550, L100.0100, L503.0106, L101.9900 ####[facility] [address] [place], [address] T PROT 6.6 g/dL Normal 5.9-8.4 [facility] Comment on above: Performed By: #### L 501.6710, L501.1400, L504.2610, L503.6030, L500.4050, L503.6550, L100.0100, L503.0106, L101.9900 ####[facility] [address] [place], [address] Urea nitrogen [Mass/Vol] 13 mg/dL Normal 4-19 [facility] Comment on above: Performed By: #### L 501.6710, L501.1400, L504.2610, L503.6030, L500.4050, L503.6550, L100.0100, L503.0106, L101.9900 ####[facility] [address] [place], [place], [phone] Eosinophil percentageOrdered By: Ernesto Jaramillo on 06-29-2024 Eosinophils/100 WBC (Bld) 0.0 % 0-5 [facility] Erythrocyte Sed Rateon 06-29 SED RATE 4 mm/hr Normal 0-30 [facility] Comment on above: Performed By: #### L 501.6710, L501.1400, L504.2610, L503.6030, L500.4050, L503.6550, L100.0100, L503.0106, L101.9900 ####[facility] [address] [place], [address] Erythrocyte distribution wid th ratioOrdered By: Ernesto Jaramillo on 06-29-2024 Erythrocyte distribution width (RBC) [Ratio] 12.9 % 11.6-14.6 [facility] Erythrocyte distribution wid th standard deviationOrdered By: Ernesto Jaramillo on 06-29-2024 Erythrocyte distribution width (RBC) [Ratio] 46.0 fl High 35.1-43.9 [facility] Erythrocyte sedimentation ra teOrdered By: Ernesto Jaramillo on 06-29-2024 ESR (Bld) [Velocity] 4 mm/h 0-30 [facility] Ferritinon 06-29-2024 Ferritin [Mass/Vol] 970 ng/mL High 22-378 [facility] Comment on above: Performed By: #### L 501.6710, L501.1400, L504.2610, L503.6030, L500.4050, L503.6550, L100.0100, L503.0106, L101.9900 ####[facility] [address] [place], [address] Glomerular filtration rate ( GFR) estimation/1.73 sq m using serum, plasma, or whole bOrdered By: Ernesto Jaramillo on 06-29-2024 GFR/1.73 sq M.predicted among non-blacks MDRD (S/P/Bld) [Vol rate/Area] 94 mL/min/{1.73_m2} >60 [facility] Comment on above: mL/min/1.73m2 CKD-EP I Creatinine Equation (2020) Hematocrit Auto (Bld) [Volum e fraction]Ordered By: Ernesto Jaramillo on 06-29-2024 Hematocrit (Bld) [Volume fraction] 32.7 % Low 37-47 [facility] Hemoglobin measurementOrdere d By: Ernesto Jaramillo on 06-29-2024 Hemoglobin (Bld) [Mass/Vol] 11.6 g/dL Low 12.0-15.0 [facility] Immature granulocytes/100 WB C Auto (Bld)Ordered By: Earth Sonny on 06-29-2024 Immature granulocytes/100 WBC (Bld) 0.600 % 0.0-0.9 [facility] Comment on above: IG% - Immature Granu locytes (promyelocytes, myelocytes and metamyelocytes) > 1% indicates that a LEFT SHIFT is Present. Iron measurement (mass/mass) Ordered By: Ernesto Jaramillo on 06-29-2024 Iron (Unsp spec) [Mass/Mass] 156 ug/dL 50-170 [facility] Iron+Iron Binding Capacityon 06-29-2024 Iron [Mass/Vol] 156 ug/dL Normal 50-170 [facility] Comment on above: Performed By: #### L 501.6710, L501.1400, L504.2610, L503.6030, L500.4050, L503.6550, L100.0100, L503.0106, L101.9900 ####[facility] [address] [place], [address] IRON SATURATION 56.0 Normal 13-59 [facility] Comment on above: Performed By: #### L 501.6710, L501.1400, L504.2610, L503.6030, L500.4050, L503.6550, L100.0100, L503.0106, L101.9900 ####[facility] [address] [place], [address] TIBC 278 ug/dL Normal 250-450 [facility] Comment on above: Performed By: #### L 501.6710, L501.1400, L504.2610, L503.6030, L500.4050, L503.6550, L100.0100, L503.0106, L101.9900 ####[facility] [address] [place], [address] UIBC 122 ug/dL Low 228-428 [facility] Comment on above: Performed By: #### L 501.6710, L501.1400, L504.2610, L503.6030, L500.4050, L503.6550, L100.0100, L503.0106, L101.9900 ####[facility] [address] [place], [address] LDHon 06-29-2024 LDH 201 U/L Normal 84-246 [facility] Comment on above: Order Comment: 1 Performed By: #### L 501.6710, L501.1400, L504.2610, L503.6030, L500.4050, L503.6550, L100.0100, L503.0106, L101.9900 ####[facility] [address] [place], [place], [id number] Laboratory - Chemistry and C hemistry - challengeOrdered By: Ernesto Jaramillo on 06-29-2024 AST [Catalytic activity/Vol] 31 U/L <32 [facility] Lactate dehydrogenase (LDH) measurementOrdered By: Ernesto Jaramillo on 06-29-2024 LDH [Catalytic activity/Vol] 201 U/L 84-246 [facility] MCV (mean corpuscular volume ) determinationOrdered By: Ernesto Jaramillo on 06-29-2024 MCV (RBC) [Entitic vol] 98.5 fL 81-99 [facility] Mean corpuscular hemoglobin (MCH) determinationOrdered By: Ernesto Jaramillo on 06-29-2024 MCH (RBC) [Entitic mass] 34.9 pg High 27.0-32.0 [facility] Mean corpuscular hemoglobin concentration (MCHC) determinationOrdered By: Ernesto Jaramillo on 06-29-2024 MCHC (RBC) [Mass/Vol] 35.5 g/dL 32-36 [facility] Mean platelet volume determi nationOrdered By: Ernesto Jaramillo on 06-29-2024 Platelet mean volume (Bld) [Entitic vol] 9.0 fL 6.2-12.0 [facility] Monocyte percentageOrdered B y: Ernesto Jaramillo on 06-29-2024 Monocytes/100 WBC (Bld) 16.4 % High 0-10 [facility] Neutrophil percentageOrdered By: Ernesto Jaramillo on 06-29-2024 Neutrophils/100 WBC (Bld) 65.7 % 47-70 [facility] No Panel InformationOrdered By: Ernesto Jaramillo on 06-29-2024 Unsaturated Iron Binding Capacity 122 ug/dL Low 228-428 [facility] Nucleated red blood cell per centageOrdered By: Ernesto Jaramillo on 06-29-2024 Nucleated RBC/100 WBC (Bld) [Ratio] 0 % 0-5 [facility] Oncology Visit Reporton 06-10 Oncology Visit Report Normal [facility] Platelet countOrdered By: Hue Jaramillo on 06-29-2024 Platelets (Bld) [#/Vol] 163 10*3/uL 150-450 [facility] Potassium measurement (mass/ volume)Ordered By: Ernesto Jaramillo on 06-29-2024 Potassium (Unsp spec) [Mass/Vol] 4.2 mmol/L 3.3-5.1 [facility] RBC Auto (Bld) [#/Vol]Ordere d By: Ernesto Jaramillo on 06-29-2024 RBC (Bld) [#/Vol] 3.32 10*6/uL Low 4.2-5.4 [facility] Serum creatinine measurement (mass/volume)Ordered By: Ernesto Jaramillo on 06-29-2024 Creatinine [Mass/Vol] 0.72 mg/dL 0.70-1.20 [facility] Serum globulin measurementOr dered By: Ernesto Jaramillo on 06-29-2024 Globulin (S) [Mass/Vol] 2.4 g/dL 2.2-4.2 [facility] Serum glucose measurement (m ass/volume)Ordered By: Ernesto Jaramillo on 06-29-2024 Glucose [Mass/Vol] 96 mg/dL 70-99 [facility] Serum or plasma C reactive p rotein measurement (mass/volume)Ordered By: Ernesto Jaramillo on 06-29-2024 CRP [Mass/Vol] mg/L 0.0-3.0 [facility] Serum or plasma alanine munguia otransferase (ALT) measurementOrdered By: Ernesto Jaramillo on 06-29-2024 ALT [Catalytic activity/Vol] 25 U/L <35 [facility] Serum or plasma albumin yuliet urement (mass/volume)Ordered By: Ernesto Jaramillo on 06-29-2024 Albumin [Mass/Vol] 4.2 g/dL 3.4-4.8 [facility] Serum or plasma albumin/glob ulin mass ratioOrdered By: Ernesto Jaramillo on 06-29-2024 Albumin/Globulin [Mass ratio] 1.8 {ratio} 0.9-2.4 [facility] Serum or plasma alkaline cuba sphatase measurementOrdered By: Ernesto Jaramillo on 06-29-2024 ALP [Catalytic activity/Vol] 102 U/L 35-104 [facility] Serum or plasma calcium yuliet urement (mass/volume)Ordered By: Ernesto Jaramillo on 06-29-2024 Calcium [Mass/Vol] 9.5 mg/dL 7.6-11.0 [facility] Serum or plasma ferritin bunny surement (mass/volume)Ordered By: Ernesto Jaramillo on 06-29-2024 Ferritin [Mass/Vol] 970 ng/mL High 22-378 [facility] Serum or plasma iron saturat ion measurement (mass fraction)Ordered By: Ernesto Jaramillo on 06-29-2024 Iron saturation [Mass fraction] 56.0 % 13-59 [facility] Serum or plasma urea nitroge n measurement (mass/volume)Ordered By: Ernesto Jaramillo on 06-29-2024 Urea nitrogen [Mass/Vol] 13 mg/dL 4-19 [facility] Serum or plasma uric acid me asurement (mass/volume)Ordered By: Ernesto Jaramillo on 05-21-2025 Urate [Mass/Vol] 3.4 mg/dL 2.6-6.0 [facility] Comment on above: The drugs N-Acetylcy steine and Metamizole may falsely depress this assay. Sodium levelOrdered By: Wayne Jaramillo on 06-29-2024 Sodium [Moles/Vol] 134 mmol/L 133-145 [facility] Total proteinOrdered By: Kirill Jaramillo on 06-29-2024 Protein [Mass/Vol] 6.6 g/dL 5.9-8.4 [facility] Uric Acidon 06-29-2024 URIC 3.4 mg/dL Normal 2.6-6.0 [facility] Comment on above: Result Comment: The drugs N-Acetylcysteine and Metamizole may falselydepress this assay. Performed By: #### L 501.6710, L501.1400, L504.2610, L503.6030, L500.4050, L503.6550, L100.0100, L503.0106, L101.9900 ####[facility] [address] [facility]. [place], [place], [id number] Vitamin B12on 06-29-2024 Cobalamin (Vitamin B12) [Mass/Vol] 633 pg/mL Normal 180-914 [facility] Comment on above: Performed By: #### L 501.6710, L501.1400, L504.2610, L503.6030, L500.4050, L503.6550, L100.0100, L503.0106, L101.9900 ####[facility] [address] [facility]. [place], [place], [id number] Vitamin B12 ser/plasOrdered By: Ernesto Jaramillo on 06-29-2024 Cobalamin (Vitamin B12) [Mass/Vol] 633 pg/mL 180-914 [facility] White blood cell (WBC) count Ordered By: Ernesto Jaramillo on 06-29-2024 WBC (Bld) [#/Vol] 3.2 10*3/uL Low 4.4-11.0 [facility] CBC W/Diff, Automatedon 05-11 Absolute Lymph 0.53 X10 3/uL Low 0.83-4.51 [facility] Comment on above: Performed By: #### L 100.0100, L500.4050, L501.1400 ####[facility] [address] [place], [address] Absolute Neut 1.7 X10 3/uL Low 2.0-7.7 [facility] Comment on above: Performed By: #### L 100.0100, L500.4050, L501.1400 ####[facility] [address] [place], [address] Basophils/100 WBC (Bld) 0.7 % Normal 0-1 [facility] Comment on above: Performed By: #### L 100.0100, L500.4050, L501.1400 ####[facility] [address] [place], [address] Eosinophils/100 WBC (Bld) 0.0 % Normal 0-5 [facility] Comment on above: Performed By: #### L 100.0100, L500.4050, L501.1400 ####[facility] [address] [place], [address] Erythrocyte distribution width (RBC) [Ratio] 13.2 % Normal 11.6-14.6 [facility] Comment on above: Performed By: #### L 100.0100, L500.4050, L501.1400 ####[facility] [address] [place], [address] Hematocrit (Bld) [Volume fraction] 29.2 % Low 37-47 [facility] Comment on above: Performed By: #### L 100.0100, L500.4050, L501.1400 ####[facility] [address] [place], [address] Hemoglobin (Bld) [Mass/Vol] 10.7 g/dL Low 12.0-15.0 [facility] Comment on above: Performed By: #### L 100.0100, L500.4050, L501.1400 ####[facility] [address] [place], [address] IG% 0.700 Normal 0.0-0.9 [facility] Comment on above: Result Comment: IG% - Immature Granulocytes (promyelocytes, myelocytes andmetamyelocytes) > 1% indicates that a LEFT SHIFT is Present. Performed By: #### L 100.0100, L500.4050, L501.1400 ####[facility] [address] [place], [address] Lymphocytes/100 WBC (Bld) 17.6 % Low 19-41 [facility] Comment on above: Performed By: #### L 100.0100, L500.4050, L501.1400 ####[facility] [address] [place], [address] MCH (RBC) [Entitic mass] 34.6 pg High 27.0-32.0 [facility] Comment on above: Performed By: #### L 100.0100, L500.4050, L501.1400 ####[facility] [address] [place], [address] MCHC (RBC) [Mass/Vol] 36.6 g/dL High 32-36 [facility] Comment on above: Performed By: #### L 100.0100, L500.4050, L501.1400 ####[facility] [address] [place], [address] MCV (RBC) [Entitic vol] 94.5 fL Normal 81-99 [facility] Comment on above: Performed By: #### L 100.0100, L500.4050, L501.1400 ####[facility] [address] [place], [address] Monocytes/100 WBC (Bld) 25.2 % High 0-10 [facility] Comment on above: Performed By: #### L 100.0100, L500.4050, L501.1400 ####[facility] [address] [place], [address] Neutrophils/100 WBC (Bld) 55.8 % Normal 47-70 [facility] Comment on above: Performed By: #### L 100.0100, L500.4050, L501.1400 ####[facility] [address] [place], [address] Nucleated RBC (Bld) [#/Vol] 0 10*3/uL Normal 0-5 [facility] Comment on above: Performed By: #### L 100.0100, L500.4050, L501.1400 ####[facility] [address] [place], [address] Platelet mean volume (Bld) [Entitic vol] 8.8 fL Normal 6.2-12.0 [facility] Comment on above: Performed By: #### L 100.0100, L500.4050, L501.1400 ####[facility] [address] [place], [address] Platelets (Bld) [#/Vol] 161 10*3/uL Normal 150-450 [facility] Comment on above: Performed By: #### L 100.0100, L500.4050, L501.1400 ####[facility] [address] [place], [address] RBC (Bld) [#/Vol] 3.09 10*6/uL Low 4.2-5.4 [facility] Comment on above: Performed By: #### L 100.0100, L500.4050, L501.1400 ####[facility] [address] [place], [address] RDW SD 45.1 fl High 35.1-43.9 [facility] Comment on above: Performed By: #### L 100.0100, L500.4050, L501.1400 ####[facility] [address] [place], [address] WBC (Bld) [#/Vol] 3.0 10*3/uL Low 4.4-11.0 [facility] Comment on above: Performed By: #### L 100.0100, L500.4050, L501.1400 ####[facility] [address] [place], [address] Comprehensive Metabolic Prof ilon 05-31-2024 Albumin [Mass/Vol] 4.0 g/dL Normal 3.4-4.8 [facility] Comment on above: Performed By: #### L 100.0100, L500.4050, L501.1400 ####[facility] [address] [place], [address] Albumin/Globulin [Mass ratio] 1.7 {ratio} Normal 0.9-2.4 [facility] Comment on above: Performed By: #### L 100.0100, L500.4050, L501.1400 ####[facility] [address] [place], [address] ALK PHOS 96 U/L Normal 35-104 [facility] Comment on above: Performed By: #### L 100.0100, L500.4050, L501.1400 ####[facility] [address] [place], [address] ALT [Catalytic activity/Vol] 29 U/L Normal <=34 [facility] Comment on above: Performed By: #### L 100.0100, L500.4050, L501.1400 ####[facility] [address] [place], [address] AST [Catalytic activity/Vol] 34 U/L High <=31 [facility] Comment on above: Performed By: #### L 100.0100, L500.4050, L501.1400 ####[facility] [address] [place], [address] Bilirubin [Mass/Vol] 0.22 mg/dL Normal 0.00-1.30 [facility] Comment on above: Performed By: #### L 100.0100, L500.4050, L501.1400 ####[facility] [address] [place], [address] BUN/CRE 21.8 RATIO High 10-20 [facility] Comment on above: Performed By: #### L 100.0100, L500.4050, L501.1400 ####[facility] [address] [place], [address] Calcium [Mass/Vol] 9.5 mg/dL Normal 7.6-11.0 [facility] Comment on above: Performed By: #### L 100.0100, L500.4050, L501.1400 ####[facility] [address] [place], [address] Chloride [Moles/Vol] 104 mmol/L Normal 98-108 [facility] Comment on above: Performed By: #### L 100.0100, L500.4050, L501.1400 ####[facility] [address] [place], [address] CO2 [Moles/Vol] 20.2 mmol/L Low 21.0-32.0 [facility] Comment on above: Performed By: #### L 100.0100, L500.4050, L501.1400 ####[facility] [address] [place], [address] Creatinine [Mass/Vol] 0.54 mg/dL Low 0.70-1.20 [facility] Comment on above: Performed By: #### L 100.0100, L500.4050, L501.1400 ####[facility] [address] [place], [address] ECRCL 75.60 ml/min Normal 50-250 [facility] Comment on above: Performed By: #### L 100.0100, L500.4050, L501.1400 ####[facility] [address] [place], [address] GAP 11 Normal 5-15 [facility] Comment on above: Performed By: #### L 100.0100, L500.4050, L501.1400 ####[facility] [address] [place], [address] GFR/1.73 sq M.predicted among non-blacks MDRD (S/P/Bld) [Vol rate/Area] 103 mL/min/{1.73_m2} Normal >60 [facility] Comment on above: Result Comment: mL/m in/1.73m2 CKD-EPI Creatinine Equation (2020) Performed By: #### L 100.0100, L500.4050, L501.1400 ####[facility] [address] [place], [address] Globulin (S) [Mass/Vol] 2.3 g/dL Normal 2.2-4.2 [facility] Comment on above: Performed By: #### L 100.0100, L500.4050, L501.1400 ####[facility] [address] [place], [address] Glucose [Mass/Vol] 94 mg/dL Normal 70-99 [facility] Comment on above: Performed By: #### L 100.0100, L500.4050, L501.1400 ####[facility] [address] [place], [address] Potassium [Moles/Vol] 4.1 mmol/L Normal 3.3-5.1 [facility] Comment on above: Performed By: #### L 100.0100, L500.4050, L501.1400 ####[facility] [address] [place], [address] Sodium [Moles/Vol] 135 mmol/L Normal 133-145 [facility] Comment on above: Performed By: #### L 100.0100, L500.4050, L501.1400 ####[facility] [address] [place], [address] T PROT 6.3 g/dL Normal 5.9-8.4 [facility] Comment on above: Performed By: #### L 100.0100, L500.4050, L501.1400 ####[facility] [address] [place], [address] Urea nitrogen [Mass/Vol] 12 mg/dL Normal 4-19 [facility] Comment on above: Performed By: #### L 100.0100, L500.4050, L501.1400 ####[facility] [address] [place], [address] Oncology Visit Reporton 05-11 Oncology Visit Report Normal [facility] Uric Acidon 05-31-2024 URIC 3.1 mg/dL Normal 2.6-6.0 [facility] Comment on above: Result Comment: The drugs N-Acetylcysteine and Metamizole may falselydepress this assay. Performed By: #### L 100.0100, L500.4050, L501.1400 ####[facility] [address] [place], [address] CBC W/Diff, Automatedon 04-10 Absolute Lymph 0.47 X10 3/uL Low 0.83-4.51 [facility] Comment on above: Performed By: #### L 100.0100, L500.4050, L501.1400 ####[facility] [address] [place], [address] Absolute Neut 2.4 X10 3/uL Normal 2.0-7.7 [facility] Comment on above: Performed By: #### L 100.0100, L500.4050, L501.1400 ####[facility] [address] [place], [address] Basophils/100 WBC (Bld) 0.5 % Normal 0-1 [facility] Comment on above: Performed By: #### L 100.0100, L500.4050, L501.1400 ####[facility] [address] [place], [address] Eosinophils/100 WBC (Bld) 0.5 % Normal 0-5 [facility] Comment on above: Performed By: #### L 100.0100, L500.4050, L501.1400 ####[facility] [address] [place], [address] Erythrocyte distribution width (RBC) [Ratio] 13.7 % Normal 11.6-14.6 [facility] Comment on above: Performed By: #### L 100.0100, L500.4050, L501.1400 ####[facility] [address] [place], [address] Hematocrit (Bld) [Volume fraction] 32.7 % Low 37-47 [facility] Comment on above: Performed By: #### L 100.0100, L500.4050, L501.1400 ####[facility] [address] [place], [address] Hemoglobin (Bld) [Mass/Vol] 11.7 g/dL Low 12.0-15.0 [facility] Comment on above: Performed By: #### L 100.0100, L500.4050, L501.1400 ####[facility] [address] [place], [address] IG% 0.800 Normal 0.0-0.9 [facility] Comment on above: Result Comment: IG% - Immature Granulocytes (promyelocytes, myelocytes andmetamyelocytes) > 1% indicates that a LEFT SHIFT is Present. Performed By: #### L 100.0100, L500.4050, L501.1400 ####[facility] [address] [place], [address] Lymphocytes/100 WBC (Bld) 12.3 % Low 19-41 [facility] Comment on above: Performed By: #### L 100.0100, L500.4050, L501.1400 ####[facility] [address] [place], [address] MCH (RBC) [Entitic mass] 34.3 pg High 27.0-32.0 [facility] Comment on above: Performed By: #### L 100.0100, L500.4050, L501.1400 ####[facility] [address] [place], [address] MCHC (RBC) [Mass/Vol] 35.8 g/dL Normal 32-36 [facility] Comment on above: Performed By: #### L 100.0100, L500.4050, L501.1400 ####[facility] [address] [place], [address] MCV (RBC) [Entitic vol] 95.9 fL Normal 81-99 [facility] Comment on above: Performed By: #### L 100.0100, L500.4050, L501.1400 ####[facility] [address] [place], [address] Monocytes/100 WBC (Bld) 22.3 % High 0-10 [facility] Comment on above: Performed By: #### L 100.0100, L500.4050, L501.1400 ####[facility] [address] [place], [address] Neutrophils/100 WBC (Bld) 63.6 % Normal 47-70 [facility] Comment on above: Performed By: #### L 100.0100, L500.4050, L501.1400 ####[facility] [address] [place], [address] Nucleated RBC (Bld) [#/Vol] 0 10*3/uL Normal 0-5 [facility] Comment on above: Performed By: #### L 100.0100, L500.4050, L501.1400 ####[facility] [address] [place], [address] Platelet mean volume (Bld) [Entitic vol] 8.5 fL Normal 6.2-12.0 [facility] Comment on above: Performed By: #### L 100.0100, L500.4050, L501.1400 ####[facility] [address] [place], [address] Platelets (Bld) [#/Vol] 192 10*3/uL Normal 150-450 [facility] Comment on above: Performed By: #### L 100.0100, L500.4050, L501.1400 ####[facility] [address] [place], [address] RBC (Bld) [#/Vol] 3.41 10*6/uL Low 4.2-5.4 [facility] Comment on above: Performed By: #### L 100.0100, L500.4050, L501.1400 ####[facility] [address] [place], [address] RDW SD 48.0 fl High 35.1-43.9 [facility] Comment on above: Performed By: #### L 100.0100, L500.4050, L501.1400 ####[facility] [address] [place], [address] WBC (Bld) [#/Vol] 3.8 10*3/uL Low 4.4-11.0 [facility] Comment on above: Performed By: #### L 100.0100, L500.4050, L501.1400 ####[facility] [address] [place], [address] Comprehensive Metabolic Prof ilon 05-03-2024 Albumin [Mass/Vol] 4.1 g/dL Normal 3.4-4.8 [facility] Comment on above: Performed By: #### L 100.0100, L500.4050, L501.1400 ####[facility] [address] [place], [address] Albumin/Globulin [Mass ratio] 1.7 {ratio} Normal 0.9-2.4 [facility] Comment on above: Performed By: #### L 100.0100, L500.4050, L501.1400 ####[facility] [address] [place], [address] ALK PHOS 84 U/L Normal 35-104 [facility] Comment on above: Performed By: #### L 100.0100, L500.4050, L501.1400 ####[facility] [address] [place], [address] ALT [Catalytic activity/Vol] 24 U/L Normal <=34 [facility] Comment on above: Performed By: #### L 100.0100, L500.4050, L501.1400 ####[facility] [address] [place], [address] AST [Catalytic activity/Vol] 28 U/L Normal <=31 [facility] Comment on above: Performed By: #### L 100.0100, L500.4050, L501.1400 ####[facility] [address] [place], [address] Bilirubin [Mass/Vol] 0.16 mg/dL Normal 0.00-1.30 [facility] Comment on above: Performed By: #### L 100.0100, L500.4050, L501.1400 ####[facility] [address] [place], [address] BUN/CRE 16.3 RATIO Normal 10-20 [facility] Comment on above: Performed By: #### L 100.0100, L500.4050, L501.1400 ####[facility] [address] [place], [address] Calcium [Mass/Vol] 9.5 mg/dL Normal 7.6-11.0 [facility] Comment on above: Performed By: #### L 100.0100, L500.4050, L501.1400 ####[facility] [address] [place], [address] Chloride [Moles/Vol] 102 mmol/L Normal 98-108 [facility] Comment on above: Performed By: #### L 100.0100, L500.4050, L501.1400 ####[facility] [address] [place], [address] CO2 [Moles/Vol] 21.3 mmol/L Normal 21.0-32.0 [facility] Comment on above: Performed By: #### L 100.0100, L500.4050, L501.1400 ####[facility] [address] [place], [address] Creatinine [Mass/Vol] 0.71 mg/dL Normal 0.70-1.20 [facility] Comment on above: Performed By: #### L 100.0100, L500.4050, L501.1400 ####[facility] [address] [place], [address] ECRCL 57.50 ml/min Normal 50-250 [facility] Comment on above: Performed By: #### L 100.0100, L500.4050, L501.1400 ####[facility] [address] [place], [address] GAP 10 Normal 5-15 [facility] Comment on above: Performed By: #### L 100.0100, L500.4050, L501.1400 ####[facility] [address] [place], [address] GFR/1.73 sq M.predicted among non-blacks MDRD (S/P/Bld) [Vol rate/Area] 96 mL/min/{1.73_m2} Normal >60 [facility] Comment on above: Result Comment: mL/m in/1.73m2 CKD-EPI Creatinine Equation (2020) Performed By: #### L 100.0100, L500.4050, L501.1400 ####[facility] [address] [place], [address] Globulin (S) [Mass/Vol] 2.4 g/dL Normal 2.2-4.2 [facility] Comment on above: Performed By: #### L 100.0100, L500.4050, L501.1400 ####[facility] [address] [place], [address] Glucose [Mass/Vol] 100 mg/dL High 70-99 [facility] Comment on above: Performed By: #### L 100.0100, L500.4050, L501.1400 ####[facility] [address] [place], [address] Potassium [Moles/Vol] 4.4 mmol/L Normal 3.3-5.1 [facility] Comment on above: Performed By: #### L 100.0100, L500.4050, L501.1400 ####[facility] [address] [place], [address] Sodium [Moles/Vol] 133 mmol/L Normal 133-145 [facility] Comment on above: Performed By: #### L 100.0100, L500.4050, L501.1400 ####[facility] [address] [place], [address] T PROT 6.5 g/dL Normal 5.9-8.4 [facility] Comment on above: Performed By: #### L 100.0100, L500.4050, L501.1400 ####[facility] [address] [place], [address] Urea nitrogen [Mass/Vol] 12 mg/dL Normal 4-19 [facility] Comment on above: Performed By: #### L 100.0100, L500.4050, L501.1400 ####[facility] [address] [place], [address] Oncology Visit Reporton 04-10 Oncology Visit Report Normal [facility] Uric Acidon 05-03-2024 URIC 3.6 mg/dL Normal 2.6-6.0 [facility] Comment on above: Result Comment: The drugs N-Acetylcysteine and Metamizole may falselydepress this assay. Performed By: #### L 100.0100, L500.4050, L501.1400 ####[facility] [address] [place], [address] CBC W/Diff, Automatedon 03-13 Absolute Lymph 1.01 X10 3/uL Normal 0.83-4.51 [facility] Comment on above: Order Comment: UTO F ROM PORT Performed By: #### L 500.4050, L100.0100 ####[facility] [address] [place], [address] Absolute Neut 2.8 X10 3/uL Normal 2.0-7.7 [facility] Comment on above: Order Comment: UTO F ROM PORT Performed By: #### L 500.4050, L100.0100 ####[facility] [address] [place], [address] Basophils/100 WBC (Bld) 0.5 % Normal 0-1 [facility] Comment on above: Order Comment: UTO F ROM PORT Performed By: #### L 500.4050, L100.0100 ####[facility] [address] [place], [address] Eosinophils/100 WBC (Bld) 0.2 % Normal 0-5 [facility] Comment on above: Order Comment: UTO F ROM PORT Performed By: #### L 500.4050, L100.0100 ####[facility] [address] [place], [address] Erythrocyte distribution width (RBC) [Ratio] 14.4 % Normal 11.6-14.6 [facility] Comment on above: Order Comment: UTO F ROM PORT Performed By: #### L 500.4050, L100.0100 ####[facility] [address] [place], [address] Hematocrit (Bld) [Volume fraction] 36.1 % Low 37-47 [facility] Comment on above: Order Comment: UTO F ROM PORT Performed By: #### L 500.4050, L100.0100 ####[facility] [address] [place], [address] Hemoglobin (Bld) [Mass/Vol] 12.7 g/dL Normal 12.0-15.0 [facility] Comment on above: Order Comment: UTO F ROM PORT Performed By: #### L 500.4050, L100.0100 ####[facility] [address] [place], [address] IG% 0.900 Normal 0.0-0.9 [facility] Comment on above: Order Comment: UTO F ROM PORT Result Comment: IG% - Immature Granulocytes (promyelocytes, myelocytes andmetamyelocytes) > 1% indicates that a LEFT SHIFT is Present. Performed By: #### L 500.4050, L100.0100 ####[facility] [address] [place], [address] Lymphocytes/100 WBC (Bld) 22.7 % Normal 19-41 [facility] Comment on above: Order Comment: UTO F ROM PORT Performed By: #### L 500.4050, L100.0100 ####[facility] [address] [place], [address] MCH (RBC) [Entitic mass] 33.4 pg High 27.0-32.0 [facility] Comment on above: Order Comment: UTO F ROM PORT Performed By: #### L 500.4050, L100.0100 ####[facility] [address] [place], [address] MCHC (RBC) [Mass/Vol] 35.2 g/dL Normal 32-36 [facility] Comment on above: Order Comment: UTO F ROM PORT Performed By: #### L 500.4050, L100.0100 ####[facility] [address] [place], [address] MCV (RBC) [Entitic vol] 95.0 fL Normal 81-99 [facility] Comment on above: Order Comment: UTO F ROM PORT Performed By: #### L 500.4050, L100.0100 ####[facility] [address] [place], [address] Monocytes/100 WBC (Bld) 13.7 % High 0-10 [facility] Comment on above: Order Comment: UTO F ROM PORT Performed By: #### L 500.4050, L100.0100 ####[facility] [address] [place], [address] Neutrophils/100 WBC (Bld) 62.0 % Normal 47-70 [facility] Comment on above: Order Comment: UTO F ROM PORT Performed By: #### L 500.4050, L100.0100 ####[facility] [address] [place], [address] Nucleated RBC (Bld) [#/Vol] 0 10*3/uL Normal 0-5 [facility] Comment on above: Order Comment: UTO F ROM PORT Performed By: #### L 500.4050, L100.0100 ####[facility] [address] [place], [address] Platelet mean volume (Bld) [Entitic vol] 8.6 fL Normal 6.2-12.0 [facility] Comment on above: Order Comment: UTO F ROM PORT Performed By: #### L 500.4050, L100.0100 ####[facility] [address] [place], [address] Platelets (Bld) [#/Vol] 170 10*3/uL Normal 150-450 [facility] Comment on above: Order Comment: UTO F ROM PORT Performed By: #### L 500.4050, L100.0100 ####[facility] [address] [place], [address] RBC (Bld) [#/Vol] 3.80 10*6/uL Low 4.2-5.4 [facility] Comment on above: Order Comment: UTO F ROM PORT Performed By: #### L 500.4050, L100.0100 ####[facility] [address] [place], [address] RDW SD 50.0 fl High 35.1-43.9 [facility] Comment on above: Order Comment: UTO F ROM PORT Performed By: #### L 500.4050, L100.0100 ####[facility] [address] [place], [address] WBC (Bld) [#/Vol] 4.4 10*3/uL Normal 4.4-11.0 [facility] Comment on above: Order Comment: UTO F ROM PORT Performed By: #### L 500.4050, L100.0100 ####[facility] [address] [place], [address] Comprehensive Metabolic Prof ilon 04-05-2024 ALK PHOS 87 U/L Normal 35-104 [facility] Comment on above: Result Comment: AMENDED REPORT 04/05/241558 ALK P previously reported as: 88 U/L Performed By: #### L 500.4050 ####[facility] [address] [place], [address] ALT [Catalytic activity/Vol] 63 U/L High <=34 [facility] Comment on above: Result Comment: AMENDED REPORT 04/05/241558 ALT previously reported as: 58 H U/L Performed By: #### L 500.4050 ####[facility] [address] [place], [address] AST [Catalytic activity/Vol] 33 U/L High <=31 [facility] Comment on above: Result Comment: AMENDED REPORT 04/05/241558 AST previously reported as: 31 U/L Performed By: #### L 500.4050 ####[facility] [address] [place], [address] BUN/CRE 20.9 RATIO High 10-20 [facility] Comment on above: Result Comment: AMENDED REPORT 04/05/241558 BUN/CRE previously reported as: 21.8 H RATIO Performed By: #### L 500.4050 ####[facility] [address] [place], [address] Glucose [Mass/Vol] 86 mg/dL Normal 70-99 [facility] Comment on above: Result Comment: AMENDED REPORT 02/25/25 1559 GLU previously reported as: 88 mg/dL Performed By: #### L 500.4050 ####[facility] [address] [place], [address] T PROT 6.9 g/dL Normal 5.9-8.4 [facility] Comment on above: Result Comment: AMENDED REPORT 04/05/24 3134 T PROT previously reported as: 6.8 g/dL Performed By: #### L 500.4050 ####[facility] [address] [place], [address] ALB Normal 3.2-5.0 [facility] Comment on above: Order Comment: UTO F ROM PORT Result Comment: WILL REORDER Performed By: #### L 500.4050, L100.0100 ####[facility] [address] [place], [address] ALK PHOS Normal 45-117 [facility] Comment on above: Order Comment: UTO F ROM PORT Result Comment: WILL REORDER Performed By: #### L 500.4050, L100.0100 ####[facility] [address] [place], [address] ALT Normal 13-56 [facility] Comment on above: Order Comment: UTO F ROM PORT Result Comment: WILL REORDER Performed By: #### L 500.4050, L100.0100 ####[facility] [address] [place], [address] AST Normal 15-37 [facility] Comment on above: Order Comment: UTO F ROM PORT Result Comment: WILL REORDER Performed By: #### L 500.4050, L100.0100 ####[facility] [address] [place], [address] BUN Normal 7-18 [facility] Comment on above: Order Comment: UTO F ROM PORT Result Comment: WILL REORDER Performed By: #### L 500.4050, L100.0100 ####[facility] [address] [place], [address] BUN/CRE Normal 10-20 [facility] Comment on above: Order Comment: UTO F ROM PORT Result Comment: WILL REORDER Performed By: #### L 500.4050, L100.0100 ####[facility] [address] [place], [address] CA,Total Normal 8.5-10.1 [facility] Comment on above: Order Comment: UTO F ROM PORT Result Comment: WILL REORDER Performed By: #### L 500.4050, L100.0100 ####[facility] [address] [place], [address] CL Normal 98-107 [facility] Comment on above: Order Comment: UTO F ROM PORT Result Comment: WILL REORDER Performed By: #### L 500.4050, L100.0100 ####[facility] [address] [place], [address] CO2 Normal 21.0-32.0 [facility] Comment on above: Order Comment: UTO F ROM PORT Result Comment: WILL REORDER Performed By: #### L 500.4050, L100.0100 ####[facility] [address] [place], [address] CREAT,SERUM Normal 0.55-1.02 [facility] Comment on above: Order Comment: UTO F ROM PORT Result Comment: WILL REORDER Performed By: #### L 500.4050, L100.0100 ####[facility] [address] [place], [address] eGFR Normal >60 [facility] Comment on above: Order Comment: UTO F ROM PORT Result Comment: WILL REORDER Performed By: #### L 500.4050, L100.0100 ####[facility] [address] [place], [address] EST GFR - AA Normal >60 [facility] Comment on above: Order Comment: UTO F ROM PORT Result Comment: WILL REORDER Performed By: #### L 500.4050, L100.0100 ####[facility] [address] [place], [address] GAP Normal 5-15 [facility] Comment on above: Order Comment: UTO F ROM PORT Result Comment: WILL REORDER Performed By: #### L 500.4050, L100.0100 ####[facility] [address] [place], [address] GLU Normal 74-106 [facility] Comment on above: Order Comment: UTO F ROM PORT Result Comment: WILL REORDER Performed By: #### L 500.4050, L100.0100 ####[facility] [address] [place], [address] Potassium Normal 3.5-5.1 [facility] Comment on above: Order Comment: UTO F ROM PORT Result Comment: WILL REORDER Performed By: #### L 500.4050, L100.0100 ####[facility] [address] [place], [address] T BILI Normal 0.20-1.00 [facility] Comment on above: Order Comment: UTO F ROM PORT Result Comment: WILL REORDER Performed By: #### L 500.4050, L100.0100 ####[facility] [address] [place], [address] T PROT Normal 6.4-8.2 [facility] Comment on above: Order Comment: UTO F ROM PORT Result Comment: WILL REORDER Performed By: #### L 500.4050, L100.0100 ####[facility] [address] [place], [address] Comprehensive Metabolic Profil Normal 136-145 [facility] Comment on above: Order Comment: UTO F ROM PORT Result Comment: WILL REORDER Performed By: #### L 500.4050, L100.0100 ####[facility] [address] [place], [place], [address] Oncology Visit Reporton 03-13 Oncology Visit Report Normal [facility] Uric Acidon 04-05-2024 URIC 2.6 mg/dL Normal 2.6-6.0 [facility] Comment on above: Result Comment: The drugs N-Acetylcysteine and Metamizole may falselydepress this assay. Performed By: #### L 501.1400 ####[facility] [address] [place], [place], [address] [email or web address] -------- MARY VALIENTE ([id number]) 1960 [facility] Date Time Provider Department 04/04/24 VALORIE [...] up with patient, received a call from [facility] regarding same issue. office will send imaging reports, last office note, and latest blood work results. Office wants to know if they should push the imaging to [facility]. [facility] before calling patient. Was Patient Referred to [facility]/Seek Emergency Treatment (Y/N): na Did Patient Agree (Y/N): na Was An Attempt Made To Transfer The Patient To The Office (Y/N): na Were You Able To Reach Someone At The Office (Y/N): na If Yes - Patient Was Transferred To (Caregivers Name): na If No - Which [facility] Leadership Barking Machine Feeder Did You Speak With Regarding This Patient: na Was an appointment scheduled (Y/N): na Reason patient was requesting visit (RFV/signs and symptoms/diagnosis) : follow up Person calling if other than patient: pt/ Anais for [facility] Return call to if other than patient: pt Best contact number: [phone]/ [phone] Thank you, Maria Isabel Bowen April 04, 2024 10:22 AM Robyn Singh 04/04/2024 11:12 AM Signed Please see call center message and advise patient. Robyn Singh April 04, 2024 11:12 AM Valorie Oh APRN.THEODORA 04/04/2024 12:36 PM Signed Called the [facility], to speak with nurse Anais, no answer left a detailed VM, including the office phone number for return call. Valorie Oh, MSN, AGP-TOWER CRANE OPERATOR [facility] Endocrinology - Ashleigh Jerez 04/05/2024 2:26 PM Signed Misty from [facility] returned call re: Valorie's question. She said she spoke with PARA MACHINE OPERATOR Pao Lewis, she said there are no drug to drug interactions with Evenity but if it's not urgent she can start Evenity after completing 6 cycles of bendeka and rituximab which is approximately the end of May. She said to call back with any other questions. [phone] Ashleigh Baig April 05, 2024 2:26 PM [...] fusion [Z98. (more content not included)... Normal [facility] Abdomen/Pelvis W IV Cont ONL Yon 03-30-2024 Abdomen/Pelvis W IV Cont ONLY Normal [facility] Absolute lymphocyte countOrd ered By: Codyingrid Turner on 03-30-2024 Lymphocytes Auto (Unsp spec) [#/Vol] 0.89 10*3/uL 0.83-4.51 [facility] Absolute neutrophil countOrd ered By: Cody Turner on 03-30-2024 Neutrophils (Bld) [#/Vol] 1.8 10*3/uL Low 2.0-7.7 [facility] Albumin to globulin ratioOrd ered By: Codyingrid Turner on 03-30-2024 Albumin/Globulin [Mass ratio] 1.1 {ratio} 0.9-2.4 [facility] Automated lymphocyte count a s percentage of total leukocytesOrdered By: Codyingrid Turner on 03-30-2024 Lymphocytes/100 WBC Auto (Unsp spec) 25.9 % 19-41 [facility] Basophil percentageOrdered B y: Codyingrid Turner on 03-30-2024 Basophils/100 WBC (Bld) 0.9 % 0-1 [facility] Bilirubin, totalOrdered By: Codyingrid Turner on 03-30-2024 Bilirubin [Mass/Vol] 0.30 mg/dL 0.20-1.00 [facility] Comment on above: For patients on eltr ombopag therapy, use of Dimension [place] TBIL is not recommended. Blood urea nitrogen (BUN)/cr eatinine ratioOrdered By: Codyingrid Turner on 03-30-2024 Urea nitrogen/Creatinine [Mass ratio] 20.0 mg/mg 10-20 [facility] CBC W/Diff, Automatedon 03-12 Absolute Lymph 0.89 X10 3/uL Normal 0.83-4.51 [facility] Comment on above: Performed By: #### L 501.2450, L500.4050, L100.0100 ####[facility] [address] [place], [address] Absolute Neut 1.8 X10 3/uL Low 2.0-7.7 [facility] Comment on above: Performed By: #### L 501.2450, L500.4050, L100.0100 ####[facility] [address] [place], [address] Basophils/100 WBC (Bld) 0.9 % Normal 0-1 [facility] Comment on above: Performed By: #### L 501.2450, L500.4050, L100.0100 ####[facility] [address] [place], [address] Eosinophils/100 WBC (Bld) 0.0 % Normal 0-5 [facility] Comment on above: Performed By: #### L 501.2450, L500.4050, L100.0100 ####[facility] [address] [place], [address] Erythrocyte distribution width (RBC) [Ratio] 14.5 % Normal 11.6-14.6 [facility] Comment on above: Performed By: #### L 501.2450, L500.4050, L100.0100 ####[facility] [address] [place], [address] Hematocrit (Bld) [Volume fraction] 32.9 % Low 37-47 [facility] Comment on above: Performed By: #### L 501.2450, L500.4050, L100.0100 ####[facility] [address] [place], [address] Hemoglobin (Bld) [Mass/Vol] 11.6 g/dL Low 12.0-15.0 [facility] Comment on above: Performed By: #### L 501.2450, L500.4050, L100.0100 ####[facility] [address] [place], [address] IG% 1.200 High 0.0-0.9 [facility] Comment on above: Result Comment: IG% - Immature Granulocytes (promyelocytes, myelocytes andmetamyelocytes) > 1% indicates that a LEFT SHIFT is Present. Performed By: #### L 501.2450, L500.4050, L100.0100 ####[facility] [address] [place], [address] Lymphocytes/100 WBC (Bld) 25.9 % Normal 19-41 [facility] Comment on above: Performed By: #### L 501.2450, L500.4050, L100.0100 ####[facility] [address] [place], [address] MCH (RBC) [Entitic mass] 32.8 pg High 27.0-32.0 [facility] Comment on above: Performed By: #### L 501.2450, L500.4050, L100.0100 ####[facility] [address] [place], [address] MCHC (RBC) [Mass/Vol] 35.3 g/dL Normal 32-36 [facility] Comment on above: Performed By: #### L 501.2450, L500.4050, L100.0100 ####[facility] [address] [place], [address] MCV (RBC) [Entitic vol] 92.9 fL Normal 81-99 [facility] Comment on above: Performed By: #### L 501.2450, L500.4050, L100.0100 ####[facility] [address] [place], [address] Monocytes/100 WBC (Bld) 18.6 % High 0-10 [facility] Comment on above: Performed By: #### L 501.2450, L500.4050, L100.0100 ####[facility] [address] [place], [address] Neutrophils/100 WBC (Bld) 53.4 % Normal 47-70 [facility] Comment on above: Performed By: #### L 501.2450, L500.4050, L100.0100 ####[facility] [address] [place], [address] Nucleated RBC (Bld) [#/Vol] 0 10*3/uL Normal 0-5 [facility] Comment on above: Performed By: #### L 501.2450, L500.4050, L100.0100 ####[facility] [address] [place], [address] Platelet mean volume (Bld) [Entitic vol] 8.2 fL Normal 6.2-12.0 [facility] Comment on above: Performed By: #### L 501.2450, L500.4050, L100.0100 ####[facility] [address] [place], [address] Platelets (Bld) [#/Vol] 186 10*3/uL Normal 150-450 [facility] Comment on above: Performed By: #### L 501.2450, L500.4050, L100.0100 ####[facility] [address] [place], [address] RBC (Bld) [#/Vol] 3.54 10*6/uL Low 4.2-5.4 [facility] Comment on above: Performed By: #### L 501.2450, L500.4050, L100.0100 ####[facility] [address] [place], [address] RDW SD 49.6 fl High 35.1-43.9 [facility] Comment on above: Performed By: #### L 501.2450, L500.4050, L100.0100 ####[facility] [address] [place], [address] WBC (Bld) [#/Vol] 3.4 10*3/uL Low 4.4-11.0 [facility] Comment on above: Performed By: #### L 501.2450, L500.4050, L100.0100 ####[facility] [address] [place], [address] Carbon dioxide measurementOr dered By: Cody Turner on 03-30-2024 CO2 [Moles/Vol] 23.0 mmol/L 21.0-32.0 [facility] Chloride measurementOrdered By: Cody Turner on 03-30-2024 Chloride [Moles/Vol] 104 mmol/L 98-107 [facility] Comprehensive Metabolic Prof ilon 03-30-2024 Albumin [Mass/Vol] 3.3 g/dL Normal 3.2-5.0 [facility] Comment on above: Performed By: #### L 501.2450, L500.4050, L100.0100 ####[facility] [address] [place], [address] Albumin/Globulin [Mass ratio] 1.1 {ratio} Normal 0.9-2.4 [facility] Comment on above: Performed By: #### L 501.2450, L500.4050, L100.0100 ####[facility] [address] [place], [address] ALK P 72 U/L Normal 45-117 [facility] Comment on above: Performed By: #### L 501.2450, L500.4050, L100.0100 ####[facility] [address] [place], [address] ALT [Catalytic activity/Vol] 43 U/L Normal 13-56 [facility] Comment on above: Performed By: #### L 501.2450, L500.4050, L100.0100 ####[facility] [address] [place], [address] AST [Catalytic activity/Vol] 30 U/L Normal 15-37 [facility] Comment on above: Performed By: #### L 501.2450, L500.4050, L100.0100 ####[facility] [address] [place], [address] Bilirubin [Mass/Vol] 0.30 mg/dL Normal 0.20-1.00 [facility] Comment on above: Result Comment: For patients on eltrombopag therapy, use of Dimension [place] TBIL is not recommended. Performed By: #### L 501.2450, L500.4050, L100.0100 ####[facility] [address] [place], [address] BUN/CRE 20.0 RATIO Normal 10-20 [facility] Comment on above: Performed By: #### L 501.2450, L500.4050, L100.0100 ####[facility] [address] [place], [address] CA,Total 9.5 mg/dL Normal 8.5-10.1 [facility] Comment on above: Performed By: #### L 501.2450, L500.4050, L100.0100 ####[facility] [address] [place], [address] Chloride [Moles/Vol] 104 mmol/L Normal 98-107 [facility] Comment on above: Performed By: #### L 501.2450, L500.4050, L100.0100 ####[facility] [address] [place], [address] CO2 [Moles/Vol] 23.0 mmol/L Normal 21.0-32.0 [facility] Comment on above: Performed By: #### L 501.2450, L500.4050, L100.0100 ####[facility] [address] [place], [address] Creatinine [Mass/Vol] 0.65 mg/dL Normal 0.55-1.02 [facility] Comment on above: Result Comment: The validity of the calculated GFR GFRAA in patients over70 years has not been determined. Clinical correlation isessential. Performed By: #### L 501.2450, L500.4050, L100.0100 ####[facility] [address] [place], [address] ECRCL 62.81 ml/min Normal [facility] Comment on above: Performed By: #### L 501.2450, L500.4050, L100.0100 ####[facility] [address] [place], [address] EST GFR - AA 118 mL/min Normal >60 [facility] Comment on above: Result Comment: Afri can Dominican GFR Calc Performed By: #### L 501.2450, L500.4050, L100.0100 ####[facility] [address] [place], [address] GAP 8 Normal 5-15 [facility] Comment on above: Performed By: #### L 501.2450, L500.4050, L100.0100 ####[facility] [address] [place], [address] GFR/1.73 sq M.predicted among non-blacks MDRD (S/P/Bld) [Vol rate/Area] 98 mL/min/{1.73_m2} Normal >60 [facility] Comment on above: Result Comment: Non- GFR Calc Performed By: #### L 501.2450, L500.4050, L100.0100 ####[facility] [address] [place], [address] Globulin (S) [Mass/Vol] 3.1 g/dL Normal 2.2-4.2 [facility] Comment on above: Performed By: #### L 501.2450, L500.4050, L100.0100 ####[facility] [address] [place], [address] Glucose [Mass/Vol] 103 mg/dL Normal 74-106 [facility] Comment on above: Result Comment: Fast ing Glucose result from 100 to 125 mg/dLsuggests IMPAIRED HOMEOSTASIS per A.D.A. criteria. Performed By: #### L 501.2450, L500.4050, L100.0100 ####[facility] [address] [place], [address] Potassium [Moles/Vol] 3.5 mmol/L Normal 3.5-5.1 [facility] Comment on above: Performed By: #### L 501.2450, L500.4050, L100.0100 ####[facility] [address] [place], [address] Sodium [Moles/Vol] 135 mmol/L Low 136-145 [facility] Comment on above: Performed By: #### L 501.2450, L500.4050, L100.0100 ####[facility] [address] [place], [address] T PROT 6.4 g/dL Normal 6.4-8.2 [facility] Comment on above: Performed By: #### L 501.2450, L500.4050, L100.0100 ####[facility] [address] [place], [address] Urea nitrogen [Mass/Vol] 13 mg/dL Normal 7-18 [facility] Comment on above: Performed By: #### L 501.2450, L500.4050, L100.0100 ####[facility] [address] [place], [address] Emergency Department Summary on 03-30-2024 Emergency Department Summary Normal [facility] Eosinophil percentageOrdered By: Codyingrid Turner on 03-30-2024 Eosinophils/100 WBC (Bld) 0.0 % 0-5 [facility] Erythrocyte distribution wid th ratioOrdered By: Cody Turner on 03-30-2024 Erythrocyte distribution width (RBC) [Ratio] 14.5 % 11.6-14.6 [facility] Erythrocyte distribution wid th standard deviationOrdered By: Codyingrid Turner on 03-30-2024 Erythrocyte distribution width (RBC) [Ratio] 49.6 fl High 35.1-43.9 [facility] Glomerular filtration rate ( GFR) estimationOrdered By: Codyingrid Turner on 03-30-2024 GFR/1.73 sq M.predicted among non-blacks MDRD (S/P/Bld) [Vol rate/Area] 98 mL/min/{1.73_m2} >60 [facility] Comment on above: Non- GFR Calc Glucose measurementOrdered B y: Cody Turner on 03-30-2024 Glucose [Mass/Vol] 103 mg/dL 74-106 [facility] Comment on above: Fasting Glucose resu lt from 100 to 125 mg/dL suggests IMPAIRED HOMEOSTASIS per A.D.A. criteria. Hematocrit Auto (Bld) [Volum e fraction]Ordered By: Codyingrid Turner on 03-30-2024 Hematocrit (Bld) [Volume fraction] 32.9 % Low 37-47 [facility] Hemoglobin measurementOrdere d By: Codyingrid Turner on 03-30-2024 Hemoglobin (Bld) [Mass/Vol] 11.6 g/dL Low 12.0-15.0 [facility] Immature granulocytes/100 WB C Auto (Bld)Ordered By: Codyingrid Turner on 03-30-2024 Immature granulocytes/100 WBC (Bld) 1.200 % High 0.0-0.9 [facility] [facility] Comment on above: IG% - Immature Granu locytes (promyelocytes, myelocytes and metamyelocytes) > 1% indicates that a LEFT SHIFT is Present. Laboratory - Chemistry and C hemistry - challengeOrdered By: Cody Turner on 03-30-2024 AST [Catalytic activity/Vol] 30 U/L 15-37 [facility] Lipaseon 03-30-2024 Lipase [Catalytic activity/Vol] 38 U/L Low 73-393 [facility] Comment on above: Performed By: #### L 501.2450, L500.4050, L100.0100 ####[facility] [address] [place], [address] Lipase measurementOrdered By : Cody Turner on 03-30-2024 Lipase [Catalytic activity/Vol] 38 U/L Low 73-393 [facility] MCV (mean corpuscular volume ) determinationOrdered By: Cody Turner on 03-30-2024 MCV (RBC) [Entitic vol] 92.9 fL 81-99 [facility] Mean corpuscular hemoglobin (MCH) determinationOrdered By: Codyingrid Turner on 03-30-2024 MCH (RBC) [Entitic mass] 32.8 pg High 27.0-32.0 [facility] Mean corpuscular hemoglobin concentration (MCHC) determinationOrdered By: Codyingrid Turner on 03-30-2024 MCHC (RBC) [Mass/Vol] 35.3 g/dL 32-36 [facility] Mean platelet volume determi nationOrdered By: Cody Turner on 03-30-2024 Platelet mean volume (Bld) [Entitic vol] 8.2 fL 6.2-12.0 [facility] Monocyte percentageOrdered B y: Cody Turner on 03-30-2024 Monocytes/100 WBC (Bld) 18.6 % High 0-10 [facility] Neutrophil percentageOrdered By: Cody Turner on 03-30-2024 Neutrophils/100 WBC (Bld) 53.4 % 47-70 [facility] Nucleated red blood cell per centageOrdered By: Cody Turner on 03-30-2024 Nucleated RBC/100 WBC (Bld) [Ratio] 0 % 0-5 [facility] Platelet countOrdered By: Pedro Turner on 03-30-2024 Platelets (Bld) [#/Vol] 186 10*3/uL 150-450 [facility] Potassium measurementOrdered By: Cody Turner on 03-30-2024 Potassium [Moles/Vol] 3.5 mmol/L 3.5-5.1 [facility] RBC Auto (Bld) [#/Vol]Ordere d By: Cody Turner on 03-30-2024 RBC (Bld) [#/Vol] 3.54 10*6/uL Low 4.2-5.4 [facility] Serum anion gap measurementO rdered By: Cody Turner on 03-30-2024 Anion gap [Moles/Vol] 8 mmol/L 5-15 [facility] Serum globulin measurementOr dered By: Cody Turner on 03-30-2024 Globulin (S) [Mass/Vol] 3.1 g/dL 2.2-4.2 [facility] Serum or plasma alanine munguia otransferase (ALT) measurementOrdered By: Cody Turner on 03-30-2024 ALT [Catalytic activity/Vol] 43 U/L 13-56 [facility] Serum or plasma albumin yuliet urement (mass/volume)Ordered By: Cody Turner on 03-30-2024 Albumin [Mass/Vol] 3.3 g/dL 3.2-5.0 [facility] Serum or plasma alkaline cuba sphatase measurementOrdered By: Cody Turner on 03-30-2024 ALP [Catalytic activity/Vol] 72 U/L 45-117 [facility] Serum or plasma calcium yuliet urement (mass/volume)Ordered By: Cody Turner on 03-30-2024 Calcium [Mass/Vol] 9.5 mg/dL 8.5-10.1 [facility] Serum or plasma creatinine m easurement (mass/volume)Ordered By: Cody Turner on 03-30-2024 Creatinine [Mass/Vol] 0.65 mg/dL 0.55-1.02 [facility] Comment on above: The validity of the calculated GFR & GFRAA in patients over 70 years has not been determined. Clinical correlation is essential. Serum or plasma urea nitroge n measurement (mass/volume)Ordered By: Cody Turner on 03-30-2024 Urea nitrogen [Mass/Vol] 13 mg/dL 08-26 [facility] Sodium levelOrdered By: Cody Turner on 03-30-2024 Sodium [Moles/Vol] 135 mmol/L Low 136-145 [facility] Total proteinOrdered By: [facility] on 03-30-2024 Protein [Mass/Vol] 6.4 g/dL 6.4-8.2 [facility] White blood cell (WBC) count Ordered By: [facility] on 03-30-2024 WBC (Bld) [#/Vol] 3.4 10*3/uL Low 4.4-11.0 [facility] CNPNon 03-29-2024 CNPN Telephone (AGENDOG) -------- MARY VALIENTE ([id number]) 1960 F T Date Time Provider Department [...] Encounter Status:Closed by JASSI JOSHI on 03/29/24 [facility] CNOVon 03-28-2024 CNOV Office Visit (MIC[facility]EL [facility]) -------- MARY VALIENTE ([id number]) 1960 F T Date Time Provider Department 03/28/24 10:30 AM [place] AGENDJASON During your visit today, we recorded the following information about you: Pulse Blood pressure Weight Height 99/minute 111/72 45.6 kg 1.47 m Valorie Oh, 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 Patient was referred by Rosio Butterfield I, MD [facility]. Patient stated that she has screws loose in her back and she has a lot of pain because of that. She is not felling good at all. Patient went to ER yesterday at [facility] for stomach pain. Patient is on [...] started treatment with chemo in December at [facility]. Also she stated that her daughter was [...] falls or fractures. [facility] PHONE NUMBER: [phone] Upcoming dental procedures planned? NO Participating in [...] Hip Fracture: 2.6% 09/05/2021 DXA: AXIAL SKELETON [facility] Review of Systems GENERAL: feeling well without [...] No history of dysuria, frequency or incontinence MANAGING BROKER: Negative for abnormal vaginal bleeding, abnormal vaginal [...] MEDICAL HIS (more content not included)... Normal [facility] PET/CT Tumor Base -Thigh Sub son 03-22-2024 PET/CT Tumor Base -Thigh Subs Normal [facility] CBC W/Diff, Automatedon 02-10 Absolute Lymph 0.48 X10 3/uL Low 0.83-4.51 [facility] Comment on above: Performed By: #### L 500.4050, L100.0100, L501.1400 ####[facility] [address] [place], [address] Absolute Neut 3.8 X10 3/uL Normal 2.0-7.7 [facility] Comment on above: Performed By: #### L 500.4050, L100.0100, L501.1400 ####[facility] [address] [place], [address] Basophils/100 WBC (Bld) 0.8 % Normal 0-1 [facility] Comment on above: Performed By: #### L 500.4050, L100.0100, L501.1400 ####[facility] [address] [place], [address] Eosinophils/100 WBC (Bld) 0.0 % Normal 0-5 [facility] Comment on above: Performed By: #### L 500.4050, L100.0100, L501.1400 ####[facility] [address] [place], [address] Erythrocyte distribution width (RBC) [Ratio] 14.7 % High 11.6-14.6 [facility] Comment on above: Performed By: #### L 500.4050, L100.0100, L501.1400 ####[facility] [address] [place], [address] Hematocrit (Bld) [Volume fraction] 35.8 % Low 37-47 [facility] Comment on above: Performed By: #### L 500.4050, L100.0100, L501.1400 ####[facility] [address] [place], [address] Hemoglobin (Bld) [Mass/Vol] 12.6 g/dL Normal 12.0-15.0 [facility] Comment on above: Performed By: #### L 500.4050, L100.0100, L501.1400 ####[facility] [address] [place], [address] IG% 1.300 High 0.0-0.9 [facility] Comment on above: Result Comment: IG% - Immature Granulocytes (promyelocytes, myelocytes andmetamyelocytes) > 1% indicates that a LEFT SHIFT is Present. Performed By: #### L 500.4050, L100.0100, L501.1400 ####[facility] [address] [place], [address] Lymphocytes/100 WBC (Bld) 9.2 % Low 19-41 [facility] Comment on above: Performed By: #### L 500.4050, L100.0100, L501.1400 ####[facility] [address] [place], [address] MCH (RBC) [Entitic mass] 32.2 pg High 27.0-32.0 [facility] Comment on above: Performed By: #### L 500.4050, L100.0100, L501.1400 ####[facility] [address] [place], [address] MCHC (RBC) [Mass/Vol] 35.2 g/dL Normal 32-36 [facility] Comment on above: Performed By: #### L 500.4050, L100.0100, L501.1400 ####[facility] [address] [place], [address] MCV (RBC) [Entitic vol] 91.6 fL Normal 81-99 [facility] Comment on above: Performed By: #### L 500.4050, L100.0100, L501.1400 ####[facility] [address] [place], [address] Monocytes/100 WBC (Bld) 16.2 % High 0-10 [facility] Comment on above: Performed By: #### L 500.4050, L100.0100, L501.1400 ####[facility] [address] [place], [address] Neutrophils/100 WBC (Bld) 72.5 % High 47-70 [facility] Comment on above: Performed By: #### L 500.4050, L100.0100, L501.1400 ####[facility] [address] [place], [address] Nucleated RBC (Bld) [#/Vol] 0 10*3/uL Normal 0-5 [facility] Comment on above: Performed By: #### L 500.4050, L100.0100, L501.1400 ####[facility] [address] [place], [address] Platelet mean volume (Bld) [Entitic vol] 8.2 fL Normal 6.2-12.0 [facility] Comment on above: Performed By: #### L 500.4050, L100.0100, L501.1400 ####[facility] [address] [place], [address] Platelets (Bld) [#/Vol] 266 10*3/uL Normal 150-450 [facility] Comment on above: Performed By: #### L 500.4050, L100.0100, L501.1400 ####[facility] [address] [place], [address] RBC (Bld) [#/Vol] 3.91 10*6/uL Low 4.2-5.4 [facility] Comment on above: Performed By: #### L 500.4050, L100.0100, L501.1400 ####[facility] [address] [place], [address] RDW SD 49.3 fl High 35.1-43.9 [facility] Comment on above: Performed By: #### L 500.4050, L100.0100, L501.1400 ####[facility] [address] [place], [address] WBC (Bld) [#/Vol] 5.2 10*3/uL Normal 4.4-11.0 [facility] Comment on above: Performed By: #### L 500.4050, L100.0100, L501.1400 ####[facility] [address] [place], [address] Comprehensive Metabolic Prof ilon 03-08-2024 Albumin [Mass/Vol] 3.8 g/dL Normal 3.2-5.0 [facility] Comment on above: Performed By: #### L 500.4050, L100.0100, L501.1400 ####[facility] [address] [place], [address] Albumin/Globulin [Mass ratio] 1.2 {ratio} Normal 0.9-2.4 [facility] Comment on above: Performed By: #### L 500.4050, L100.0100, L501.1400 ####[facility] [address] [place], [address] ALK P 78 U/L Normal 45-117 [facility] Comment on above: Performed By: #### L 500.4050, L100.0100, L501.1400 ####[facility] [address] [place], [address] ALT [Catalytic activity/Vol] 39 U/L Normal 13-56 [facility] Comment on above: Performed By: #### L 500.4050, L100.0100, L501.1400 ####[facility] [address] [place], [address] AST [Catalytic activity/Vol] 19 U/L Normal 15-37 [facility] Comment on above: Performed By: #### L 500.4050, L100.0100, L501.1400 ####[facility] [address] [place], [address] Bilirubin [Mass/Vol] 0.30 mg/dL Normal 0.20-1.00 [facility] Comment on above: Result Comment: For patients on eltrombopag therapy, use of Dimension [place] TBIL is not recommended. Performed By: #### L 500.4050, L100.0100, L501.1400 ####[facility] [address] [place], [address] BUN/CRE 32.6 RATIO High 10-20 [facility] Comment on above: Performed By: #### L 500.4050, L100.0100, L501.1400 ####[facility] [address] [place], [address] CA,Total 9.6 mg/dL Normal 8.5-10.1 [facility] Comment on above: Performed By: #### L 500.4050, L100.0100, L501.1400 ####[facility] [address] [place], [address] Chloride [Moles/Vol] 103 mmol/L Normal 98-107 [facility] Comment on above: Performed By: #### L 500.4050, L100.0100, L501.1400 ####[facility] [address] [place], [address] CO2 [Moles/Vol] 25.0 mmol/L Normal 21.0-32.0 [facility] Comment on above: Performed By: #### L 500.4050, L100.0100, L501.1400 ####[facility] [address] [place], [address] Creatinine [Mass/Vol] 0.64 mg/dL Normal 0.55-1.02 [facility] Comment on above: Result Comment: The validity of the calculated GFR GFRAA in patients over70 years has not been determined. Clinical correlation isessential. Performed By: #### L 500.4050, L100.0100, L501.1400 ####[facility] [address] [place], [address] ECRCL 63.79 ml/min Normal [facility] Comment on above: Performed By: #### L 500.4050, L100.0100, L501.1400 ####[facility] [address] [place], [address] EST GFR - AA 119 mL/min Normal >60 [facility] Comment on above: Result Comment: Afri can Dominican GFR Calc Performed By: #### L 500.4050, L100.0100, L501.1400 ####[facility] [address] [place], [address] GAP 6 Normal 5-15 [facility] Comment on above: Performed By: #### L 500.4050, L100.0100, L501.1400 ####[facility] [address] [place], [address] GFR/1.73 sq M.predicted among non-blacks MDRD (S/P/Bld) [Vol rate/Area] 99 mL/min/{1.73_m2} Normal >60 [facility] Comment on above: Result Comment: Non- GFR Calc Performed By: #### L 500.4050, L100.0100, L501.1400 ####[facility] [address] [place], [address] Globulin (S) [Mass/Vol] 3.3 g/dL Normal 2.2-4.2 [facility] Comment on above: Performed By: #### L 500.4050, L100.0100, L501.1400 ####[facility] [address] [place], [address] Glucose [Mass/Vol] 105 mg/dL Normal 74-106 [facility] Comment on above: Result Comment: Fast ing Glucose result from 100 to 125 mg/dLsuggests IMPAIRED HOMEOSTASIS per A.D.A. criteria. Performed By: #### L 500.4050, L100.0100, L501.1400 ####[facility] [address] [place], [address] Potassium [Moles/Vol] 4.2 mmol/L Normal 3.5-5.1 [facility] Comment on above: Performed By: #### L 500.4050, L100.0100, L501.1400 ####[facility] [address] [place], [address] Sodium [Moles/Vol] 135 mmol/L Low 136-145 [facility] Comment on above: Performed By: #### L 500.4050, L100.0100, L501.1400 ####[facility] [address] [place], [address] T PROT 7.1 g/dL Normal 6.4-8.2 [facility] Comment on above: Performed By: #### L 500.4050, L100.0100, L501.1400 ####[facility] [address] [place], [address] Urea nitrogen [Mass/Vol] 21 mg/dL High 7-18 [facility] Comment on above: Performed By: #### L 500.4050, L100.0100, L501.1400 ####[facility] [address] [place], [address] Ferritinon 03-08-2024 Ferritin [Mass/Vol] 1111 ng/mL High 8-252 [facility] Comment on above: Order Comment: 1 Performed By: #### L 503.6030, L504.2610, L503.6550 ####[facility] [address] [place], [address] Iron+Iron Binding Capacityon 03-08-2024 Iron [Mass/Vol] 119 ug/dL Normal 50-170 [facility] Comment on above: Order Comment: 1 Performed By: #### L 503.6030, L504.2610, L503.6550 ####[facility] [address] [place], [address] IRON SATURATION 40.6 Normal 15.0-55.0 [facility] Comment on above: Order Comment: 1 Performed By: #### L 503.6030, L504.2610, L503.6550 ####[facility] [address] [place], [address] TIBC 293 ug/dL Normal 250-450 [facility] Comment on above: Order Comment: 1 Performed By: #### L 503.6030, L504.2610, L503.6550 ####[facility] [address] [place], [address] LDHon 03-08-2024 LDH 184 U/L Normal 84-246 [facility] Comment on above: Order Comment: 1 Performed By: #### L 503.6030, L504.2610, L503.6550 ####[facility] [address] [place], [address] Oncology Visit Reporton 02-10 Oncology Visit Report Normal [facility] Uric Acidon 03-08-2024 URIC 2.7 mg/dL Normal 2.6-6.0 [facility] Comment on above: Result Comment: The drugs N-Acetylcysteine and Metamizole may falselydepress this assay. Performed By: #### L 500.4050, L100.0100, L501.1400 ####[facility] [address] [place], [address] Internal Medicine Office Vis iton 02-15-2024 Internal Medicine Office Visit Normal [facility] CBC W/Diff, Automatedon - Absolute Lymph 0.36 X10 3/uL Low 0.83-4.51 [facility] Comment on above: Performed By: #### L 501.1400, L100.0100, L500.4050 ####[facility] [address] [place], [address] Absolute Neut 3.2 X10 3/uL Normal 2.0-7.7 [facility] Comment on above: Performed By: #### L 501.1400, L100.0100, L500.4050 ####[facility] [address] [place], [address] Basophils/100 WBC (Bld) 1.4 % High 0-1 [facility] Comment on above: Performed By: #### L 501.1400, L100.0100, L500.4050 ####[facility] [address] [place], [address] Eosinophils/100 WBC (Bld) 2.3 % Normal 0-5 [facility] Comment on above: Performed By: #### L 501.1400, L100.0100, L500.4050 ####[facility] [address] [place], [address] Erythrocyte distribution width (RBC) [Ratio] 14.5 % Normal 11.6-14.6 [facility] Comment on above: Performed By: #### L 501.1400, L100.0100, L500.4050 ####[facility] [address] [place], [address] Hematocrit (Bld) [Volume fraction] 33.2 % Low 37-47 [facility] Comment on above: Performed By: #### L 501.1400, L100.0100, L500.4050 ####[facility] [address] [place], [address] Hemoglobin (Bld) [Mass/Vol] 11.3 g/dL Low 12.0-15.0 [facility] Comment on above: Performed By: #### L 501.1400, L100.0100, L500.4050 ####[facility] [address] [place], [address] IG% 0.700 Normal 0.0-0.9 [facility] Comment on above: Result Comment: IG% - Immature Granulocytes (promyelocytes, myelocytes andmetamyelocytes) > 1% indicates that a LEFT SHIFT is Present. Performed By: #### L 501.1400, L100.0100, L500.4050 ####[facility] [address] [place], [address] Lymphocytes/100 WBC (Bld) 8.1 % Low 19-41 [facility] Comment on above: Performed By: #### L 501.1400, L100.0100, L500.4050 ####[facility] [address] [place], [address] MCH (RBC) [Entitic mass] 31.4 pg Normal 27.0-32.0 [facility] Comment on above: Performed By: #### L 501.1400, L100.0100, L500.4050 ####[facility] [address] [place], [address] MCHC (RBC) [Mass/Vol] 34.0 g/dL Normal 32-36 [facility] Comment on above: Performed By: #### L 501.1400, L100.0100, L500.4050 ####[facility] [address] [place], [address] MCV (RBC) [Entitic vol] 92.2 fL Normal 81-99 [facility] Comment on above: Performed By: #### L 501.1400, L100.0100, L500.4050 ####[facility] [address] [place], [address] Monocytes/100 WBC (Bld) 15.6 % High 0-10 [facility] Comment on above: Performed By: #### L 501.1400, L100.0100, L500.4050 ####[facility] [address] [place], [address] Neutrophils/100 WBC (Bld) 71.9 % High 47-70 [facility] Comment on above: Performed By: #### L 501.1400, L100.0100, L500.4050 ####[facility] [address] [place], [address] Nucleated RBC (Bld) [#/Vol] 0 10*3/uL Normal 0-5 [facility] Comment on above: Performed By: #### L 501.1400, L100.0100, L500.4050 ####[facility] [address] [place], [address] Platelet mean volume (Bld) [Entitic vol] 8.7 fL Normal 6.2-12.0 [facility] Comment on above: Performed By: #### L 501.1400, L100.0100, L500.4050 ####[facility] [address] [place], [address] Platelets (Bld) [#/Vol] 213 10*3/uL Normal 150-450 [facility] Comment on above: Performed By: #### L 501.1400, L100.0100, L500.4050 ####[facility] [address] [place], [address] RBC (Bld) [#/Vol] 3.60 10*6/uL Low 4.2-5.4 [facility] Comment on above: Performed By: #### L 501.1400, L100.0100, L500.4050 ####[facility] [address] [place], [address] RDW SD 48.6 fl High 35.1-43.9 [facility] Comment on above: Performed By: #### L 501.1400, L100.0100, L500.4050 ####[facility] [address] [place], [address] WBC (Bld) [#/Vol] 4.4 10*3/uL Normal 4.4-11.0 [facility] Comment on above: Performed By: #### L 501.1400, L100.0100, L500.4050 ####[facility] [address] [place], [address] Comprehensive Metabolic [facility] ilon 02-08-2024 Albumin [Mass/Vol] 3.6 g/dL Normal 3.2-5.0 [facility] Comment on above: Performed By: #### L 501.1400, L100.0100, L500.4050 ####[facility] [address] [place], [address] Albumin/Globulin [Mass ratio] 1.2 {ratio} Normal 0.9-2.4 [facility] Comment on above: Performed By: #### L 501.1400, L100.0100, L500.4050 ####[facility] [address] [place], [address] ALK P 59 U/L Normal 45-117 [facility] Comment on above: Performed By: #### L 501.1400, L100.0100, L500.4050 ####[facility] [address] [place], [address] ALT [Catalytic activity/Vol] 32 U/L Normal 13-56 [facility] Comment on above: Performed By: #### L 501.1400, L100.0100, L500.4050 ####[facility] [address] [place], [address] AST [Catalytic activity/Vol] 21 U/L Normal 15-37 [facility] Comment on above: Performed By: #### L 501.1400, L100.0100, L500.4050 ####[facility] [address] [place], [address] Bilirubin [Mass/Vol] 0.30 mg/dL Normal 0.20-1.00 [facility] Comment on above: Result Comment: For patients on eltrombopag therapy, use of Dimension [place] TBIL is not recommended. Performed By: #### L 501.1400, L100.0100, L500.4050 ####[facility] [address] [place], [address] BUN/CRE 33.9 RATIO High 10-20 [facility] Comment on above: Performed By: #### L 501.1400, L100.0100, L500.4050 ####[facility] [address] [place], [address] CA,Total 9.4 mg/dL Normal 8.5-10.1 [facility] Comment on above: Performed By: #### L 501.1400, L100.0100, L500.4050 ####[facility] [address] [place], [address] Chloride [Moles/Vol] 106 mmol/L Normal 98-107 [facility] Comment on above: Performed By: #### L 501.1400, L100.0100, L500.4050 ####[facility] [address] [place], [address] CO2 [Moles/Vol] 24.0 mmol/L Normal 21.0-32.0 [facility] Comment on above: Performed By: #### L 501.1400, L100.0100, L500.4050 ####[facility] [address] [place], [address] Creatinine [Mass/Vol] 0.56 mg/dL Normal 0.55-1.02 [facility] Comment on above: Result Comment: The validity of the calculated GFR GFRAA in patients over70 years has not been determined. Clinical correlation isessential. Performed By: #### L 501.1400, L100.0100, L500.4050 ####[facility] [address] [place], [address] ECRCL 72.90 ml/min Normal [facility] Comment on above: Performed By: #### L 501.1400, L100.0100, L500.4050 ####[facility] [address] [place], [address] EST GFR - AA 140 mL/min Normal >60 [facility] Comment on above: Result Comment: Afri can Dominican GFR Calc Performed By: #### L 501.1400, L100.0100, L500.4050 ####[facility] [address] [place], [address] GAP 6 Normal 5-15 [facility] Comment on above: Performed By: #### L 501.1400, L100.0100, L500.4050 ####[facility] [address] [place], [address] GFR/1.73 sq M.predicted among non-blacks MDRD (S/P/Bld) [Vol rate/Area] 116 mL/min/{1.73_m2} Normal >60 [facility] Comment on above: Result Comment: Non- GFR Calc Performed By: #### L 501.1400, L100.0100, L500.4050 ####[facility] [address] [place], [address] Globulin (S) [Mass/Vol] 3.1 g/dL Normal 2.2-4.2 [facility] Comment on above: Performed By: #### L 501.1400, L100.0100, L500.4050 ####[facility] [address] [place], [address] Glucose [Mass/Vol] 100 mg/dL Normal 74-106 [facility] Comment on above: Result Comment: Fast ing Glucose result from 100 to 125 mg/dLsuggests IMPAIRED HOMEOSTASIS per A.D.A. criteria. Performed By: #### L 501.1400, L100.0100, L500.4050 ####[facility] [address] [place], [address] Potassium [Moles/Vol] 4.6 mmol/L Normal 3.5-5.1 [facility] Comment on above: Performed By: #### L 501.1400, L100.0100, L500.4050 ####[facility] [address] [place], [address] Sodium [Moles/Vol] 136 mmol/L Normal 136-145 [facility] Comment on above: Performed By: #### L 501.1400, L100.0100, L500.4050 ####[facility] [address] [place], [address] T PROT 6.7 g/dL Normal 6.4-8.2 [facility] Comment on above: Performed By: #### L 501.1400, L100.0100, L500.4050 ####[facility] [address] [place], [address] Urea nitrogen [Mass/Vol] 19 mg/dL High 7-18 [facility] Comment on above: Performed By: #### L 501.1400, L100.0100, L500.4050 ####[facility] [address] [place], [address] Oncology Visit Reporton 01-11 Oncology Visit Report Normal [facility] Uric Acidon 02-08-2024 URIC 2.5 mg/dL Low 2.6-6.0 [facility] Comment on above: Result Comment: The drugs N-Acetylcysteine and Metamizole may falselydepress this assay. Performed By: #### L 501.1400, L100.0100, L500.4050 ####[facility] [address] [place], [address] CBC W/Diff, Automatedon 01-09 Absolute Lymph 0.42 X10 3/uL Low 0.83-4.51 [facility] Comment on above: Performed By: #### L 501.6710, L100.0100, L101.9900, L500.4050, L501.5200 ####[facility] [address] [place], [address] Absolute Neut 5.0 X10 3/uL Normal 2.0-7.7 [facility] Comment on above: Performed By: #### L 501.6710, L100.0100, L101.9900, L500.4050, L501.5200 ####[facility] [address] [place], [address] Basophils/100 WBC (Bld) 1.1 % High 0-1 [facility] Comment on above: Performed By: #### L 501.6710, L100.0100, L101.9900, L500.4050, L501.5200 ####[facility] [address] [place], [address] Eosinophils/100 WBC (Bld) 1.1 % Normal 0-5 [facility] Comment on above: Performed By: #### L 501.6710, L100.0100, L101.9900, L500.4050, L501.5200 ####[facility] [address] [place], [address] Erythrocyte distribution width (RBC) [Ratio] 14.5 % Normal 11.6-14.6 [facility] Comment on above: Performed By: #### L 501.6710, L100.0100, L101.9900, L500.4050, L501.5200 ####[facility] [address] [place], [address] Hematocrit (Bld) [Volume fraction] 34.0 % Low 37-47 [facility] Comment on above: Performed By: #### L 501.6710, L100.0100, L101.9900, L500.4050, L501.5200 ####[facility] [address] [place], [address] Hemoglobin (Bld) [Mass/Vol] 11.4 g/dL Low 12.0-15.0 [facility] Comment on above: Performed By: #### L 501.6710, L100.0100, L101.9900, L500.4050, L501.5200 ####[facility] [address] [place], [address] IG% 0.800 Normal 0.0-0.9 [facility] Comment on above: Result Comment: IG% - Immature Granulocytes (promyelocytes, myelocytes andmetamyelocytes) > 1% indicates that a LEFT SHIFT is Present. Performed By: #### L 501.6710, L100.0100, L101.9900, L500.4050, L501.5200 ####[facility] [address] [place], [address] Lymphocytes/100 WBC (Bld) 6.5 % Low 19-41 [facility] Comment on above: Performed By: #### L 501.6710, L100.0100, L101.9900, L500.4050, L501.5200 ####[facility] [address] [place], [address] MCH (RBC) [Entitic mass] 31.2 pg Normal 27.0-32.0 [facility] Comment on above: Performed By: #### L 501.6710, L100.0100, L101.9900, L500.4050, L501.5200 ####[facility] [address] [place], [address] MCHC (RBC) [Mass/Vol] 33.5 g/dL Normal 32-36 [facility] Comment on above: Performed By: #### L 501.6710, L100.0100, L101.9900, L500.4050, L501.5200 ####[facility] [address] [place], [address] MCV (RBC) [Entitic vol] 93.2 fL Normal 81-99 [facility] Comment on above: Performed By: #### L 501.6710, L100.0100, L101.9900, L500.4050, L501.5200 ####[facility] [address] [place], [address] Monocytes/100 WBC (Bld) 13.6 % High 0-10 [facility] Comment on above: Performed By: #### L 501.6710, L100.0100, L101.9900, L500.4050, L501.5200 ####[facility] [address] [place], [address] Neutrophils/100 WBC (Bld) 76.9 % High 47-70 [facility] Comment on above: Performed By: #### L 501.6710, L100.0100, L101.9900, L500.4050, L501.5200 ####[facility] [address] [place], [address] Nucleated RBC (Bld) [#/Vol] 0 10*3/uL Normal 0-5 [facility] Comment on above: Performed By: #### L 501.6710, L100.0100, L101.9900, L500.4050, L501.5200 ####[facility] [address] [place], [address] Platelet mean volume (Bld) [Entitic vol] 8.6 fL Normal 6.2-12.0 [facility] Comment on above: Performed By: #### L 501.6710, L100.0100, L101.9900, L500.4050, L501.5200 ####[facility] [address] [place], [address] Platelets (Bld) [#/Vol] 333 10*3/uL Normal 150-450 [facility] Comment on above: Performed By: #### L 501.6710, L100.0100, L101.9900, L500.4050, L501.5200 ####[facility] [address] [place], [address] RBC (Bld) [#/Vol] 3.65 10*6/uL Low 4.2-5.4 [facility] Comment on above: Performed By: #### L 501.6710, L100.0100, L101.9900, L500.4050, L501.5200 ####[facility] [address] [place], [address] RDW SD 48.6 fl High 35.1-43.9 [facility] Comment on above: Performed By: #### L 501.6710, L100.0100, L101.9900, L500.4050, L501.5200 ####[facility] [address] [place], [address] WBC (Bld) [#/Vol] 6.5 10*3/uL Normal 4.4-11.0 [facility] Comment on above: Performed By: #### L 501.6710, L100.0100, L101.9900, L500.4050, L501.5200 ####[facility] [address] [place], [address] CRPon 01-26-2024 C-REACTIVE PROT < 2.90 Normal 0.0-3.0 [facility] Comment on above: Result Comment: C-Re active Protein (CRP) provides useful information for thediagnosis, therapy and monitoring of inflammatory processesand associated diseases. For the evaluation of Relative Riskfor Cardiovascular Disease, a High Sensitivity CRP (HSCRP)should be ordered. Performed By: #### L 501.6710, L100.0100, L101.9900, L500.4050, L501.5200 ####[facility] [address] [place], [address] Comprehensive Metabolic Prof ilon 01-26-2024 Albumin [Mass/Vol] 3.6 g/dL Normal 3.2-5.0 [facility] Comment on above: Performed By: #### L 501.6710, L100.0100, L101.9900, L500.4050, L501.5200 ####[facility] [address] [place], [address] Albumin/Globulin [Mass ratio] 1.1 {ratio} Normal 0.9-2.4 [facility] Comment on above: Performed By: #### L 501.6710, L100.0100, L101.9900, L500.4050, L501.5200 ####[facility] [address] [place], [address] ALK P 54 U/L Normal 45-117 [facility] Comment on above: Performed By: #### L 501.6710, L100.0100, L101.9900, L500.4050, L501.5200 ####[facility] [address] [place], [address] ALT [Catalytic activity/Vol] 22 U/L Normal 13-56 [facility] Comment on above: Performed By: #### L 501.6710, L100.0100, L101.9900, L500.4050, L501.5200 ####[facility] [address] [place], [address] AST [Catalytic activity/Vol] 19 U/L Normal 15-37 [facility] Comment on above: Performed By: #### L 501.6710, L100.0100, L101.9900, L500.4050, L501.5200 ####[facility] [address] [place], [address] Bilirubin [Mass/Vol] 0.20 mg/dL Normal 0.20-1.00 [facility] Comment on above: Result Comment: For patients on eltrombopag therapy, use of Dimension [place] TBIL is not recommended. Performed By: #### L 501.6710, L100.0100, L101.9900, L500.4050, L501.5200 ####[facility] [address] [place], [address] BUN/CRE 22.4 RATIO High 10-20 [facility] Comment on above: Performed By: #### L 501.6710, L100.0100, L101.9900, L500.4050, L501.5200 ####[facility] [address] [place], [address] CA,Total 9.3 mg/dL Normal 8.5-10.1 [facility] Comment on above: Performed By: #### L 501.6710, L100.0100, L101.9900, L500.4050, L501.5200 ####[facility] [address] [place], [address] Chloride [Moles/Vol] 106 mmol/L Normal 98-107 [facility] Comment on above: Performed By: #### L 501.6710, L100.0100, L101.9900, L500.4050, L501.5200 ####[facility] [address] [place], [address] CO2 [Moles/Vol] 23.0 mmol/L Normal 21.0-32.0 [facility] Comment on above: Performed By: #### L 501.6710, L100.0100, L101.9900, L500.4050, L501.5200 ####[facility] [address] [place], [address] Creatinine [Mass/Vol] 0.67 mg/dL Normal 0.55-1.02 [facility] Comment on above: Result Comment: The validity of the calculated GFR GFRAA in patients over70 years has not been determined. Clinical correlation isessential. Performed By: #### L 501.6710, L100.0100, L101.9900, L500.4050, L501.5200 ####[facility] [address] [place], [address] ECRCL 60.93 ml/min Normal [facility] Comment on above: Performed By: #### L 501.6710, L100.0100, L101.9900, L500.4050, L501.5200 ####[facility] [address] [place], [address] EST GFR - AA 114 mL/min Normal >60 [facility] Comment on above: Result Comment: Afri can Dominican GFR Calc Performed By: #### L 501.6710, L100.0100, L101.9900, L500.4050, L501.5200 ####[facility] [address] [place], [address] GAP 4 Low 5-15 [facility] Comment on above: Performed By: #### L 501.6710, L100.0100, L101.9900, L500.4050, L501.5200 ####[facility] [address] [place], [address] GFR/1.73 sq M.predicted among non-blacks MDRD (S/P/Bld) [Vol rate/Area] 94 mL/min/{1.73_m2} Normal >60 [facility] Comment on above: Result Comment: Non- GFR Calc Performed By: #### L 501.6710, L100.0100, L101.9900, L500.4050, L501.5200 ####[facility] [address] [place], [address] Globulin (S) [Mass/Vol] 3.4 g/dL Normal 2.2-4.2 [facility] Comment on above: Performed By: #### L 501.6710, L100.0100, L101.9900, L500.4050, L501.5200 ####[facility] [address] [place], [address] Glucose [Mass/Vol] 104 mg/dL Normal 74-106 [facility] Comment on above: Result Comment: Fast ing Glucose result from 100 to 125 mg/dLsuggests IMPAIRED HOMEOSTASIS per A.D.A. criteria. Performed By: #### L 501.6710, L100.0100, L101.9900, L500.4050, L501.5200 ####[facility] [address] [place], [address] Potassium [Moles/Vol] 4.1 mmol/L Normal 3.5-5.1 [facility] Comment on above: Performed By: #### L 501.6710, L100.0100, L101.9900, L500.4050, L501.5200 ####[facility] [address] [place], [address] Sodium [Moles/Vol] 133 mmol/L Low 136-145 [facility] Comment on above: Performed By: #### L 501.6710, L100.0100, L101.9900, L500.4050, L501.5200 ####[facility] [address] [place], [address] T PROT 7.0 g/dL Normal 6.4-8.2 [facility] Comment on above: Performed By: #### L 501.6710, L100.0100, L101.9900, L500.4050, L501.5200 ####[facility] [address] [place], [address] Urea nitrogen [Mass/Vol] 15 mg/dL Normal 7-18 [facility] Comment on above: Performed By: #### L 501.6710, L100.0100, L101.9900, L500.4050, L501.5200 ####[facility] [address] [place], [address] Erythrocyte Sed Rateon 01-25 SED RATE 9 mm/hr Normal 0-30 [facility] Comment on above: Performed By: #### L 501.6710, L100.0100, L101.9900, L500.4050, L501.5200 ####[facility] [address] [place], [address] LDHon 01-26-2024 LDH 253 U/L High 84-246 [facility] Comment on above: Order Comment: 1 Performed By: #### L 504.2610, L501.2300, L501.1400 ####[facility] [address] [place], [address] Magnesiumon 01-26-2024 Magnesium [Mass/Vol] 2.0 mg/dL Normal 1.6-2.6 [facility] Comment on above: Performed By: #### L 501.6710, L100.0100, L101.9900, L500.4050, L501.5200 ####[facility] [address] [place], [address] Magnesium measurementOrdered By: Ernesto Jaramillo on 01-26-2024 Magnesium [Mass/Vol] 2.0 mg/dL 1.6-2.6 [facility] Oncology Visit Reporton 01-09 Oncology Visit Report Normal [facility] Phosphoruson 01-26-2024 Phosphate [Mass/Vol] 3.3 mg/dL Normal 2.5-4.9 [facility] Comment on above: Order Comment: 1 Performed By: #### L 504.2610, L501.2300, L501.1400 ####[facility] [address] [place], [address] Uric Acidon 01-26-2024 URIC 2.5 mg/dL Low 2.6-6.0 [facility] Comment on above: Order Comment: 1 Result Comment: The drugs N-Acetylcysteine and Metamizole may falselydepress this assay. Performed By: #### L 504.2610, L501.2300, L501.1400 ####[facility] [address] [place], [address] Stool Occult Blood iFOBon STOB Positive Normal [facility] Comment on above: Performed By: #### M 100.7900 ####[facility] [address] [place], [address] Stool gastrointestinal hemog lobin detection by immunologic methodOrdered By: Ernesto Jaramillo on 01-20-2024 Lower GI hemoglobin IA Ql (Stl) Positive Abnormal [facility] CBC W/Diff, Automatedon Absolute Lymph 0.96 X10 3/uL Normal 0.83-4.51 [facility] Comment on above: Performed By: #### L 100.0100, L500.4050, L501.1400 ####[facility] [address] [place], [address] Absolute Neut 4.4 X10 3/uL Normal 2.0-7.7 [facility] Comment on above: Performed By: #### L 100.0100, L500.4050, L501.1400 ####[facility] [address] [place], [address] Basophils/100 WBC (Bld) 0.8 % Normal 0-1 [facility] Comment on above: Performed By: #### L 100.0100, L500.4050, L501.1400 ####[facility] [address] [place], [address] Eosinophils/100 WBC (Bld) 1.8 % Normal 0-5 [facility] Comment on above: Performed By: #### L 100.0100, L500.4050, L501.1400 ####[facility] [address] [place], [address] Erythrocyte distribution width (RBC) [Ratio] 13.2 % Normal 11.6-14.6 [facility] Comment on above: Performed By: #### L 100.0100, L500.4050, L501.1400 ####[facility] [address] [place], [address] Hematocrit (Bld) [Volume fraction] 33.7 % Low 37-47 [facility] Comment on above: Performed By: #### L 100.0100, L500.4050, L501.1400 ####[facility] [address] [place], [address] Hemoglobin (Bld) [Mass/Vol] 11.3 g/dL Low 12.0-15.0 [facility] Comment on above: Performed By: #### L 100.0100, L500.4050, L501.1400 ####[facility] [address] [place], [address] IG% 0.700 Normal 0.0-0.9 [facility] Comment on above: Result Comment: IG% - Immature Granulocytes (promyelocytes, myelocytes andmetamyelocytes) > 1% indicates that a LEFT SHIFT is Present. Performed By: #### L 100.0100, L500.4050, L501.1400 ####[facility] [address] [place], [address] Lymphocytes/100 WBC (Bld) 15.7 % Low 19-41 [facility] Comment on above: Performed By: #### L 100.0100, L500.4050, L501.1400 ####[facility] [address] [place], [address] MCH (RBC) [Entitic mass] 30.6 pg Normal 27.0-32.0 [facility] Comment on above: Performed By: #### L 100.0100, L500.4050, L501.1400 ####[facility] [address] [place], [address] MCHC (RBC) [Mass/Vol] 33.5 g/dL Normal 32-36 [facility] Comment on above: Performed By: #### L 100.0100, L500.4050, L501.1400 ####[facility] [address] [place], [address] MCV (RBC) [Entitic vol] 91.3 fL Normal 81-99 [facility] Comment on above: Performed By: #### L 100.0100, L500.4050, L501.1400 ####[facility] [address] [place], [address] Monocytes/100 WBC (Bld) 9.7 % Normal 0-10 [facility] Comment on above: Performed By: #### L 100.0100, L500.4050, L501.1400 ####[facility] [address] [place], [address] Neutrophils/100 WBC (Bld) 71.3 % High 47-70 [facility] Comment on above: Performed By: #### L 100.0100, L500.4050, L501.1400 ####[facility] [address] [place], [address] Nucleated RBC (Bld) [#/Vol] 0 10*3/uL Normal 0-5 [facility] Comment on above: Performed By: #### L 100.0100, L500.4050, L501.1400 ####[facility] [address] [place], [address] Platelet mean volume (Bld) [Entitic vol] 8.7 fL Normal 6.2-12.0 [facility] Comment on above: Performed By: #### L 100.0100, L500.4050, L501.1400 ####[facility] [address] [place], [address] Platelets (Bld) [#/Vol] 333 10*3/uL Normal 150-450 [facility] Comment on above: Performed By: #### L 100.0100, L500.4050, L501.1400 ####[facility] [address] [place], [address] RBC (Bld) [#/Vol] 3.69 10*6/uL Low 4.2-5.4 [facility] Comment on above: Performed By: #### L 100.0100, L500.4050, L501.1400 ####[facility] [address] [place], [address] RDW SD 44.0 fl High 35.1-43.9 [facility] Comment on above: Performed By: #### L 100.0100, L500.4050, L501.1400 ####[facility] [address] [place], [address] WBC (Bld) [#/Vol] 6.1 10*3/uL Normal 4.4-11.0 [facility] Comment on above: Performed By: #### L 100.0100, L500.4050, L501.1400 ####[facility] [address] [place], [address] Comprehensive Metabolic Prof mnon 01-12-2024 Albumin [Mass/Vol] 3.6 g/dL Normal 3.2-5.0 [facility] Comment on above: Performed By: #### L 100.0100, L500.4050, L501.1400 ####[facility] [address] [place], [address] Albumin/Globulin [Mass ratio] 1.1 {ratio} Normal 0.9-2.4 [facility] Comment on above: Performed By: #### L 100.0100, L500.4050, L501.1400 ####[facility] [address] [place], [address] ALK P 56 U/L Normal 45-117 [facility] Comment on above: Performed By: #### L 100.0100, L500.4050, L501.1400 ####[facility] [address] [place], [address] ALT [Catalytic activity/Vol] 11 U/L Low 13-56 [facility] Comment on above: Performed By: #### L 100.0100, L500.4050, L501.1400 ####[facility] [address] [place], [address] AST [Catalytic activity/Vol] 12 U/L Low 15-37 [facility] Comment on above: Performed By: #### L 100.0100, L500.4050, L501.1400 ####[facility] [address] [place], [address] Bilirubin [Mass/Vol] 0.20 mg/dL Normal 0.20-1.00 [facility] Comment on above: Result Comment: For patients on eltrombopag therapy, use of Dimension [place] TBIL is not recommended. Performed By: #### L 100.0100, L500.4050, L501.1400 ####[facility] [address] [place], [address] BUN/CRE 25.0 RATIO High 10-20 [facility] Comment on above: Performed By: #### L 100.0100, L500.4050, L501.1400 ####[facility] [address] [place], [address] CA,Total 9.3 mg/dL Normal 8.5-10.1 [facility] Comment on above: Performed By: #### L 100.0100, L500.4050, L501.1400 ####[facility] [address] [place], [address] Chloride [Moles/Vol] 108 mmol/L High 98-107 [facility] Comment on above: Performed By: #### L 100.0100, L500.4050, L501.1400 ####[facility] [address] [place], [address] CO2 [Moles/Vol] 23.0 mmol/L Normal 21.0-32.0 [facility] Comment on above: Performed By: #### L 100.0100, L500.4050, L501.1400 ####[facility] [address] [place], [address] Creatinine [Mass/Vol] 0.64 mg/dL Normal 0.55-1.02 [facility] Comment on above: Result Comment: The validity of the calculated GFR GFRAA in patients over70 years has not been determined. Clinical correlation isessential. Performed By: #### L 100.0100, L500.4050, L501.1400 ####[facility] [address] [place], [address] ECRCL 63.79 ml/min Normal [facility] Comment on above: Performed By: #### L 100.0100, L500.4050, L501.1400 ####[facility] [address] [place], [address] EST GFR - AA 120 mL/min Normal >60 [facility] Comment on above: Result Comment: Afri can Dominican GFR Calc Performed By: #### L 100.0100, L500.4050, L501.1400 ####[facility] [address] [place], [address] GAP 6 Normal 5-15 [facility] Comment on above: Performed By: #### L 100.0100, L500.4050, L501.1400 ####[facility] [address] [place], [address] GFR/1.73 sq M.predicted among non-blacks MDRD (S/P/Bld) [Vol rate/Area] 99 mL/min/{1.73_m2} Normal >60 [facility] Comment on above: Result Comment: Non- GFR Calc Performed By: #### L 100.0100, L500.4050, L501.1400 ####[facility] [address] [place], [address] Globulin (S) [Mass/Vol] 3.2 g/dL Normal 2.2-4.2 [facility] Comment on above: Performed By: #### L 100.0100, L500.4050, L501.1400 ####[facility] [address] [place], [address] Glucose [Mass/Vol] 97 mg/dL Normal 74-106 [facility] Comment on above: Performed By: #### L 100.0100, L500.4050, L501.1400 ####[facility] [address] [place], [address] Potassium [Moles/Vol] 4.1 mmol/L Normal 3.5-5.1 [facility] Comment on above: Performed By: #### L 100.0100, L500.4050, L501.1400 ####[facility] [address] [place], [address] Sodium [Moles/Vol] 137 mmol/L Normal 136-145 [facility] Comment on above: Performed By: #### L 100.0100, L500.4050, L501.1400 ####[facility] [address] [place], [address] T PROT 6.8 g/dL Normal 6.4-8.2 [facility] Comment on above: Performed By: #### L 100.0100, L500.4050, L501.1400 ####[facility] [address] [place], [address] Urea nitrogen [Mass/Vol] 16 mg/dL Normal 7-18 [facility] Comment on above: Performed By: #### L 100.0100, L500.4050, L501.1400 ####[facility] [address] [place], [place], [address] Oncology Visit Reporton 0 Oncology Visit Report Normal [facility] Uric Acidon 01-12-2024 URIC 2.3 mg/dL Low 2.6-6.0 [facility] Comment on above: Result Comment: The drugs N-Acetylcysteine and Metamizole may falselydepress this assay. Performed By: #### L 100.0100, L500.4050, L501.1400 ####[facility] [address] [place], [address] CBC W/Diff, Automatedon 12-11 Absolute Lymph 0.93 X10 3/uL Normal 0.83-4.51 [facility] Comment on above: Performed By: #### L 100.0100, L501.5200, L501.1400, L501.2300, L101.9900, L500.4050, L504.2610 ####[facility] [address] [place], [address] Absolute Neut 4.7 X10 3/uL Normal 2.0-7.7 [facility] Comment on above: Performed By: #### L 100.0100, L501.5200, L501.1400, L501.2300, L101.9900, L500.4050, L504.2610 ####[facility] [address] [place], [address] Basophils/100 WBC (Bld) 0.8 % Normal 0-1 [facility] Comment on above: Performed By: #### L 100.0100, L501.5200, L501.1400, L501.2300, L101.9900, L500.4050, L504.2610 ####[facility] [address] [place], [address] Eosinophils/100 WBC (Bld) 1.3 % Normal 0-5 [facility] Comment on above: Performed By: #### L 100.0100, L501.5200, L501.1400, L501.2300, L101.9900, L500.4050, L504.2610 ####[facility] [address] [place], [address] Erythrocyte distribution width (RBC) [Ratio] 13.1 % Normal 11.6-14.6 [facility] Comment on above: Performed By: #### L 100.0100, L501.5200, L501.1400, L501.2300, L101.9900, L500.4050, L504.2610 ####[facility] [address] [place], [address] Hematocrit (Bld) [Volume fraction] 37.6 % Normal 37-47 [facility] Comment on above: Performed By: #### L 100.0100, L501.5200, L501.1400, L501.2300, L101.9900, L500.4050, L504.2610 ####[facility] [address] [place], [address] Hemoglobin (Bld) [Mass/Vol] 12.6 g/dL Normal 12.0-15.0 [facility] Comment on above: Performed By: #### L 100.0100, L501.5200, L501.1400, L501.2300, L101.9900, L500.4050, L504.2610 ####[facility] [address] [place], [address] IG% 0.300 Normal 0.0-0.9 [facility] Comment on above: Result Comment: IG% - Immature Granulocytes (promyelocytes, myelocytes andmetamyelocytes) > 1% indicates that a LEFT SHIFT is Present. Performed By: #### L 100.0100, L501.5200, L501.1400, L501.2300, L101.9900, L500.4050, L504.2610 ####[facility] [address] [place], [address] Lymphocytes/100 WBC (Bld) 14.5 % Low 19-41 [facility] Comment on above: Performed By: #### L 100.0100, L501.5200, L501.1400, L501.2300, L101.9900, L500.4050, L504.2610 ####[facility] [address] [place], [address] MCH (RBC) [Entitic mass] 31.4 pg Normal 27.0-32.0 [facility] Comment on above: Performed By: #### L 100.0100, L501.5200, L501.1400, L501.2300, L101.9900, L500.4050, L504.2610 ####[facility] [address] [place], [address] MCHC (RBC) [Mass/Vol] 33.5 g/dL Normal 32-36 [facility] Comment on above: Performed By: #### L 100.0100, L501.5200, L501.1400, L501.2300, L101.9900, L500.4050, L504.2610 ####[facility] [address] [place], [address] MCV (RBC) [Entitic vol] 93.8 fL Normal 81-99 [facility] Comment on above: Performed By: #### L 100.0100, L501.5200, L501.1400, L501.2300, L101.9900, L500.4050, L504.2610 ####[facility] [address] [place], [address] Monocytes/100 WBC (Bld) 9.5 % Normal 0-10 [facility] Comment on above: Performed By: #### L 100.0100, L501.5200, L501.1400, L501.2300, L101.9900, L500.4050, L504.2610 ####[facility] [address] [place], [address] Neutrophils/100 WBC (Bld) 73.6 % High 47-70 [facility] Comment on above: Performed By: #### L 100.0100, L501.5200, L501.1400, L501.2300, L101.9900, L500.4050, L504.2610 ####[facility] [address] [place], [address] Nucleated RBC (Bld) [#/Vol] 0 10*3/uL Normal 0-5 [facility] Comment on above: Performed By: #### L 100.0100, L501.5200, L501.1400, L501.2300, L101.9900, L500.4050, L504.2610 ####[facility] [address] [place], [address] Platelet mean volume (Bld) [Entitic vol] 8.7 fL Normal 6.2-12.0 [facility] Comment on above: Performed By: #### L 100.0100, L501.5200, L501.1400, L501.2300, L101.9900, L500.4050, L504.2610 ####[facility] [address] [place], [address] Platelets (Bld) [#/Vol] 394 10*3/uL Normal 150-450 [facility] Comment on above: Performed By: #### L 100.0100, L501.5200, L501.1400, L501.2300, L101.9900, L500.4050, L504.2610 ####[facility] [address] [place], [address] RBC (Bld) [#/Vol] 4.01 10*6/uL Low 4.2-5.4 [facility] Comment on above: Performed By: #### L 100.0100, L501.5200, L501.1400, L501.2300, L101.9900, L500.4050, L504.2610 ####[facility] [address] [place], [address] RDW SD 45.0 fl High 35.1-43.9 [facility] Comment on above: Performed By: #### L 100.0100, L501.5200, L501.1400, L501.2300, L101.9900, L500.4050, L504.2610 ####[facility] [address] [place], [address] WBC (Bld) [#/Vol] 6.4 10*3/uL Normal 4.4-11.0 [facility] Comment on above: Performed By: #### L 100.0100, L501.5200, L501.1400, L501.2300, L101.9900, L500.4050, L504.2610 ####[facility] [address] [place], [address] CXR for Line Placementon CXR for Line Placement Normal [facility] Comprehensive Metabolic Prof ilon 01-04-2024 Albumin [Mass/Vol] 4.0 g/dL Normal 3.2-5.0 [facility] Comment on above: Order Comment: 1 Performed By: #### L 100.0100, L501.5200, L501.1400, L501.2300, L101.9900, L500.4050, L504.2610 ####[facility] [address] [place], [address] Albumin/Globulin [Mass ratio] 1.3 {ratio} Normal 0.9-2.4 [facility] Comment on above: Order Comment: 1 Performed By: #### L 100.0100, L501.5200, L501.1400, L501.2300, L101.9900, L500.4050, L504.2610 ####[facility] [address] [place], [address] ALK P 58 U/L Normal 45-117 [facility] Comment on above: Order Comment: 1 Performed By: #### L 100.0100, L501.5200, L501.1400, L501.2300, L101.9900, L500.4050, L504.2610 ####[facility] [address] [place], [address] ALT [Catalytic activity/Vol] 12 U/L Low 13-56 [facility] Comment on above: Order Comment: 1 Performed By: #### L 100.0100, L501.5200, L501.1400, L501.2300, L101.9900, L500.4050, L504.2610 ####[facility] [address] [place], [address] AST [Catalytic activity/Vol] 14 U/L Low 15-37 [facility] Comment on above: Order Comment: 1 Performed By: #### L 100.0100, L501.5200, L501.1400, L501.2300, L101.9900, L500.4050, L504.2610 ####[facility] [address] [place], [address] Bilirubin [Mass/Vol] 0.30 mg/dL Normal 0.20-1.00 [facility] Comment on above: Order Comment: 1 Result Comment: For patients on eltrombopag therapy, use of Dimension [place] TBIL is not recommended. Performed By: #### L 100.0100, L501.5200, L501.1400, L501.2300, L101.9900, L500.4050, L504.2610 ####[facility] [address] [place], [address] BUN/CRE 20.3 RATIO High 10-20 [facility] Comment on above: Order Comment: 1 Performed By: #### L 100.0100, L501.5200, L501.1400, L501.2300, L101.9900, L500.4050, L504.2610 ####[facility] [address] [place], [address] CA,Total 9.1 mg/dL Normal 8.5-10.1 [facility] Comment on above: Order Comment: 1 Performed By: #### L 100.0100, L501.5200, L501.1400, L501.2300, L101.9900, L500.4050, L504.2610 ####[facility] [address] [place], [address] Chloride [Moles/Vol] 106 mmol/L Normal 98-107 [facility] Comment on above: Order Comment: 1 Performed By: #### L 100.0100, L501.5200, L501.1400, L501.2300, L101.9900, L500.4050, L504.2610 ####[facility] [address] [place], [address] CO2 [Moles/Vol] 26.0 mmol/L Normal 21.0-32.0 [facility] Comment on above: Order Comment: 1 Performed By: #### L 100.0100, L501.5200, L501.1400, L501.2300, L101.9900, L500.4050, L504.2610 ####[facility] [address] [place], [address] Creatinine [Mass/Vol] 0.64 mg/dL Normal 0.55-1.02 [facility] Comment on above: Order Comment: 1 Result Comment: The validity of the calculated GFR GFRAA in patients over70 years has not been determined. Clinical correlation isessential. Performed By: #### L 100.0100, L501.5200, L501.1400, L501.2300, L101.9900, L500.4050, L504.2610 ####[facility] [address] [place], [place], [phone]) ECRCL 63.79 ml/min Normal [facility] Comment on above: Order Comment: 1 Performed By: #### L 100.0100, L501.5200, L501.1400, L501.2300, L101.9900, L500.4050, L504.2610 ####[facility] [address] [place], [place], [phone]) EST GFR - AA 120 mL/min Normal >60 [facility] Comment on above: Order Comment: 1 Result Comment: Afri can Dominican GFR Calc Performed By: #### L 100.0100, L501.5200, L501.1400, L501.2300, L101.9900, L500.4050, L504.2610 ####[facility] [address] [place], [place], [phone](021) GAP 4 Low 5-15 [facility] Comment on above: Order Comment: 1 Performed By: #### L 100.0100, L501.5200, L501.1400, L501.2300, L101.9900, L500.4050, L504.2610 ####[facility] [address] [place], [place], [phone](141) GFR/1.73 sq M.predicted among non-blacks MDRD (S/P/Bld) [Vol rate/Area] 99 mL/min/{1.73_m2} Normal >60 [facility] Comment on above: Order Comment: 1 Result Comment: Non- GFR Calc Performed By: #### L 100.0100, L501.5200, L501.1400, L501.2300, L101.9900, L500.4050, L504.2610 ####[facility] [address] [place], [address] Globulin (S) [Mass/Vol] 3.1 g/dL Normal 2.2-4.2 [facility] Comment on above: Order Comment: 1 Performed By: #### L 100.0100, L501.5200, L501.1400, L501.2300, L101.9900, L500.4050, L504.2610 ####[facility] [address] [place], [address] Glucose [Mass/Vol] 103 mg/dL Normal 74-106 [facility] Comment on above: Order Comment: 1 Result Comment: Fast ing Glucose result from 100 to 125 mg/dLsuggests IMPAIRED HOMEOSTASIS per A.D.A. criteria. Performed By: #### L 100.0100, L501.5200, L501.1400, L501.2300, L101.9900, L500.4050, L504.2610 ####[facility] [address] [place], [address] Potassium [Moles/Vol] 4.1 mmol/L Normal 3.5-5.1 [facility] Comment on above: Order Comment: 1 Performed By: #### L 100.0100, L501.5200, L501.1400, L501.2300, L101.9900, L500.4050, L504.2610 ####[facility] [address] [place], [address] Sodium [Moles/Vol] 136 mmol/L Normal 136-145 [facility] Comment on above: Order Comment: 1 Performed By: #### L 100.0100, L501.5200, L501.1400, L501.2300, L101.9900, L500.4050, L504.2610 ####[facility] [address] [place], [address] T PROT 7.1 g/dL Normal 6.4-8.2 [facility] Comment on above: Order Comment: 1 Performed By: #### L 100.0100, L501.5200, L501.1400, L501.2300, L101.9900, L500.4050, L504.2610 ####[facility] [address] [place], [address] Urea nitrogen [Mass/Vol] 13 mg/dL Normal 7-18 [facility] Comment on above: Order Comment: 1 Performed By: #### L 100.0100, L501.5200, L501.1400, L501.2300, L101.9900, L500.4050, L504.2610 ####[facility] [address] [place], [place], [phone] Discharge Instructionon 12-11 Discharge Instruction Normal [facility] Erythrocyte Sed Rateon 01-03 SED RATE 5 mm/hr Normal 0-30 [facility] Comment on above: Performed By: #### L 100.0100, L501.5200, L501.1400, L501.2300, L101.9900, L500.4050, L504.2610 ####[facility] [address] [place], [place], [phone] HIV - WCHon 01-04-2024 HIV Non-Reactive Normal Nonreactive [facility] Comment on above: Performed By: #### L 3890.6005 ####[facility] [address] [place], [place], [id number] HIV 1 and HIV-2 antibody ass ay with HIV-1 p24 antigen detectionOrdered By: Ernesto Jaramillo on 01-04-2024 HIV 1+2 Ab+HIV1 p24 Ag IA Ql Non-Reactive Nonreactive [facility] LDHon 01-04-2024 LDH 186 U/L Normal 84-246 [facility] Comment on above: Order Comment: 1 Performed By: #### L 100.0100, L501.5200, L501.1400, L501.2300, L101.9900, L500.4050, L504.2610 ####[facility] [address] [place], [address] MR/POSTOP.ANEon 01-04-2024 MR/POSTOP.ANE Normal [facility] MR/[id number] 01-04-2024 MR/POSTOPAN2 Normal [facility] Magnesiumon 01-04-2024 Magnesium [Mass/Vol] 2.0 mg/dL Normal 1.6-2.6 [facility] Comment on above: Order Comment: 1 Performed By: #### L 100.0100, L501.5200, L501.1400, L501.2300, L101.9900, L500.4050, L504.2610 ####[facility] [address] [place], [place], [address] Oncology Visit Reporton 12-11 Oncology Visit Report Normal [facility] Operative Reporton Operative Report Normal [facility] Phosphoruson 01-04-2024 Phosphate [Mass/Vol] 3.3 mg/dL Normal 2.5-4.9 [facility] Comment on above: Order Comment: 1 Performed By: #### L 100.0100, L501.5200, L501.1400, L501.2300, L101.9900, L500.4050, L504.2610 ####[facility] [address] [place], [address] Uric Acidon 01-04-2024 URIC 2.8 mg/dL Normal 2.6-6.0 [facility] Comment on above: Order Comment: 1 Result Comment: The drugs N-Acetylcysteine and Metamizole may falselydepress this assay. Performed By: #### L 100.0100, L501.5200, L501.1400, L501.2300, L101.9900, L500.4050, L504.2610 ####[facility] [address] [place], [address] Surgery Visit Reporton 12-29 Surgery Visit Report Normal [facility] Oncology Visit Reporton 12-10 Oncology Visit Report Normal [facility] No Panel InformationOrdered By: Ernesto Jaramillo on 12-09-2023 Hepatitis C Antibody Comment Comment . [facility] Comment on above: Not infected with HC V unless early or acute infection issuspected (which may be delayed in an immunocompromisedindividual), or other evidence exists to indicate HCVinfection.Performed at: [employer] [id number] Director: Jourdan Carlson PhD, Phone: [phone] Serum hepatitis B virus core antibody detectionOrdered By: Ernesto Jaramillo on 12-09-2023 HBV core Ab Ql (S) Negative Negative [facility] Serum or plasma ehvx-6-uvqrf globulin measurement (mass/volume)Ordered By: Ernesto Jaramillo on 12-09-2023 Efhb-8-Hvfbkmxrsksms [Mass/Vol] 1.8 ug/mL 0.6-2.4 [facility] Comment on above: Siemens Immulite 200 0 Immunochemiluminometric assay (ICMA)Values obtained with different assay methods or kits cannotbe used interchangeably. Results cannot be interpreted asabsolute evidence of the presence or absence of malignantdisease.Performed at: [employer] [id number] Director: Jey Gil MD, Phone: [phone] Serum or plasma hepatitis B virus surface antigen detection by immunoassayOrdered By: Ernesto Jaramillo on 12-09-2023 HBV surface Ag IA Ql Negative Negative [facility] [facility] BD DXA - FOREARM SKELETONon 11-13-2023 BD DXA - FOREARM SKELETON * * *Final Report* * * DATE OF EXAM: Nov 13 2023 1:37PM [facility] 0870 - BD DXA - FOREARM SKELETON / PROCEDURE REASON: multiple diagnoses * * * * Physician Interpretation * * * * EXAMINATION: DXA BONE DENSITOMETRY BD VFA WITH DXA - AXIAL SKELETON, BD DXA - FOREARM SKELETON PATIENT DEMOGRAPHICS: Age: 63 years, Gender: Female SCANNER INFORMATION: DXA Model: LeukoDx - Desecuritrex C 00252 Date Scanned: 11/13/2023 1:37 PM CLINICAL HISTORY: [...] had a previous bone density in the [facility] or the previous bone density was performed on a different DXA machine (new, updated model or different location) within the [facility]. IMPRESSION: THE LOWEST T-SCORE IS -3.6 IN [...] FOR MORE INFORMATION ABOUT DIAGNOSIS AND TREATMENT: [facility] Center for Osteoporosis and Metabolic Bone Disease:? www.ccf.org/arthritis/os logan National Osteoporosis Foundation:? www.nof.org International Society of Clinical Densitometry www.iscd.org Swimming Pool Installer: INEZ Transcribe Date/Time: Nov 17 2023 6:21A Dictated by : NAVJOT DIAZ MD This examination was interpreted and the report reviewed and electronically signed by: NAVJOT DIAZ MD on Nov 17 2023 6:22AM EST [id number] -3.6 Normal [facility] BD VFA WITH DXA - AXIAL SKEL ETONon 11-13-2023 BD VFA WITH DXA - AXIAL SKELETON * * *Final Report* * * DATE OF EXAM: Nov 13 2023 1:37PM [facility] 0802 - BD VFA WITH DXA - AXIAL SKELETON / PROCEDURE REASON: multiple diagnoses * * * * Physician Interpretation * * * * EXAMINATION: DXA BONE DENSITOMETRY BD VFA WITH DXA - AXIAL SKELETON, BD DXA - FOREARM SKELETON PATIENT DEMOGRAPHICS: Age: 63 years, Gender: Female SCANNER INFORMATION: DXA Model: LeukoDx - BlooBox Discovery C 12521 Date Scanned: 11/13/2023 1:37 PM CLINICAL HISTORY: [...] had a previous bone density in the [facility] or the previous bone density was performed on a different DXA machine (new, updated model or different location) within the [facility]. IMPRESSION: THE LOWEST T-SCORE IS -3.6 IN [...] FOR MORE INFORMATION ABOUT DIAGNOSIS AND TREATMENT: [facility] for Osteoporosis and Metabolic Bone Disease:? www.ccf.org/arthritis/os logan National Osteoporosis Foundation:? www.nof.org International Society of Clinical Densitometry www.iscd.org Swimming Pool Installer: INEZ Transcribe Date/Time: Nov 17 2023 6:21A Dictated by : NAVJOT DIAZ MD This examination was interpreted and the report reviewed and electronically signed by: NAVJOT DIAZ MD on Nov 17 2023 6:22AM EST [id number] -3.6 Normal [facility] CNPNon 09-29-2023 CNPN Telephone (INFDAK) -------- MARY VALIENTE ([id number]) 1960 F T Date Time Provider Department 09/29/23 ESTEBAN JOEL INFDAK During your visit today, we [...] Status:Closed by ESTEBAN JOEL on 09/30/23 Normal [facility] 25([place])D3 [facility] 25-hydroxyvitamin D3 [Mass/Vol] 40.5 ng/mL Normal >=30.0 [facility] Comment on above: Order Comment: Speci men Type: BLOOD SPECIMENOrdering Facility: [facility] Address: [address] [place] [address] Result Comment: Clas sification of 25 [place] Vitamin D status: Deficiency: <= 20.0 ng/ml. Insufficiency: 21.0-29.0 ng/ml. Sufficiency: >= 30.0 ng/ml. Performed By: #### 1 989-3 ####[facility]ATORYCLIA [id number] [address] CNOVon 09-28-2023 CNOV Office Visit (MICHAEL Harrison) -------- MARY VALIENTE ([id number]) 1960 F T Date Time Provider Department 09/28/23 10:00 AM [place] During your visit today, we recorded the following information about you: Pulse Blood pressure Weight Height 61/minute 125/73 50.3 kg 1.467 m Valorie Oh APRN.TOWER CRANE OPERATOR 11/17/2023 2:08 PM Addendum ENDOCRINE REFERRAL Osteoporosis and Metabolic Bone Disease New Visit Date of Evaluation:09/28/2023 Patient seen at the request of / referral from:Rosio Butterfield I, MD [facility] RE: Osteoporosis, unspecified osteoporosis type, unspecified [...] by Rosio Butterfield I, MD [facility] Patient stated that she has screws loose in her back and she has a lot of pain because of that. She is not felling good at all. Patient went to ER yesterday at [facility] for stomach pain. Patient is on treatment with Prolia injection for the past 1.5 years started by her PCP. She had 3 doses so far, tolerates medication well. Last dose 08/10/2023. Never had any fracture in the past. She has a new compression fracture on C7. --- NEXT DXA DUE: NOW 09/05/2021 DXA: AXIAL SKELETON [facility] FRAX 10 YEAR PROBABILITY OF FRACTURE: Major [...] - Chemotherapy, or radiation therapy: NO - [place] use: NO - Thiazide use: NO Dental [...] for chest (more content not included)... Normal [facility] MARY VALIENTE ([id number]) 1960 F CHT Date Time Provider Department 09/28/23 [place] AGENDOG During your visit today, we recorded the following information about you: Valorie Oh, 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 09/28/2023 10:24 AM Signed Hi Jhoana, Please schedule her for dxa at [facility]. Thank you Valorie Oh, MSN, AGP-[facility] Endocrinology - Jhoana Yu PSS 09/28/2023 1:37 PM Addendum Referral Coordination Patient scheduled for:DEXA Location:[place] Date: 11-13-23 Time:12:30 Prep for test:no calcium [...] Encounter Status:Closed by [place]IE [place] on 09/28/23 [facility] CNPN Telephone (wst.cnNDXuanyixia) -------- MARY VALIENTE ([id number]) 1960 F T Date Time Provider Department 09/28/23 [place] During your visit today, we recorded the following information about you: Valorie Oh, 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 09/28/2023 10:45 AM Signed Nurses, Please call the PCP's office and ask when patient had the Prolia injection ( last one 2.5 mo ago per pt). Please let me know. Thank you Valorie Oh, MSN, AGP-[facility] Endocrinology - Juli [...] Status:Closed by VALORIE [place] on 09/28/23 Normal [facility] Comprehensive metabolic 2000 panelon 09-28-2023 Albumin [Mass/Vol] 4.5 g/dL 3.9 - 4.9 g/dL [facility] ALP [Catalytic activity/Vol] 66 U/L 34 - 123 U/L [facility] ALT With P-5'-P [Catalytic activity/Vol] 20 U/L 7 - 38 U/L [facility] Anion gap [Moles/Vol] 10 mmol/L 8 - 15 mmol/L [facility] AST With P-5'-P [Catalytic activity/Vol] 26 U/L 13 - 35 U/L [facility] Bilirubin [Mass/Vol] 0.2 mg/dL 0.2 - 1 .3 mg/dL [facility] Calcium [Mass/Vol] 9.5 mg/dL 8.5 - 10. 2 mg/dL [facility] Chloride [Moles/Vol] 101 mmol/L 98 - 10 7 mmol/L [facility] CO2 [Moles/Vol] 21 mmol/L Low 22 - 30 mmol/L [facility] Creatinine [Mass/Vol] 0.68 mg/dL 0.58 - 0.96 mg/dL [facility] GFR/1.73 sq M.predicted among non-blacks MDRD (S/P/Bld) [Vol rate/Area] 98 mL/min/{1.73_m2} - PINF [facility] Comment on above: Estimated Glomerular Filtration [...] [Mass/Vol] 84 mg/dL 74 - 99 mg/dL [facility] Comment on above: The [place] Diabete [...] Interpretation and review of laboratory results Abnormal [facility] Potassium [Moles/Vol] 4.7 mmol/L 3.7 - 5.1 mmol/L [facility] Protein [Mass/Vol] 7.4 g/dL 6.3 - 8.0 g/dL [facility] Sodium [Moles/Vol] 132 mmol/L Low 136 - 144 mmol/L [facility] Urea nitrogen [Mass/Vol] 14 mg/dL 7 - 21 mg/dL [facility] Albumin [Mass/Vol] 4.5 g/dL Normal 3.9-4.9 [facility] Comment on above: Order Comment: Speci men Type: BLOOD SPECIMENOrdering Facility: [facility] Address: [address] [place] [address] Performed By: #### 1 9123-9, 43569-6, 277- ####[facility] LABORATORYCLIA [id number] [place] [address] [place] ALP [Catalytic activity/Vol] 66 U/L Normal 34-123 [facility] Comment on above: Order Comment: Speci men Type: BLOOD SPECIMENOrdering Facility: [facility] Address: [address] [place] [address] Performed By: #### 1 9123-9, 14120-7, 277- ####[facility] LABORATORYCLIA [id number] [address] STATES OF [facility] ALT With P-5'-P [Catalytic activity/Vol] 20 U/L Normal 7-38 [facility] Comment on above: Order Comment: Speci men Type: BLOOD SPECIMENOrdering Facility: [facility] Address: [address] [place] [address] Performed By: #### 1 9123-9, 62063-5, 277- ####[facility] LABORATORYCLIA [id number] [address] STATES OF [facility] Anion gap [Moles/Vol] 10 mmol/L Normal 8-15 [facility] Comment on above: Order Comment: Speci men Type: BLOOD SPECIMENOrdering Facility: [facility] Address: [address] [place] [address] Performed By: #### 1 9123-9, 69632-7, 2777-1 ####[facility]ORATORYCLIA [id number] [place] [address] [place] AST With P-5'-P [Catalytic activity/Vol] 26 U/L Normal 13-35 [facility] Comment on above: Order Comment: Speci men Type: BLOOD SPECIMENOrdering Facility: [facility] Address: [address] [place] [address] Performed By: #### 1 9123-9, 33315-7, 2776-02 ####[facility] LABORATORYCLIA [id number] [place] [address] [place] Bilirubin [Mass/Vol] 0.2 mg/dL Normal 0.2-1.3 [facility] Comment on above: Order Comment: Speci men Type: BLOOD SPECIMENOrdering Facility: [facility] Address: [address] [place] [address] Performed By: #### 1 9123-9, 24579-6, 2776-02 ####[facility] LABORATORYCLIA [id number] [place] [address] [place] Calcium [Mass/Vol] 9.5 mg/dL Normal 8.5-10.2 [facility] Comment on above: Order Comment: Speci men Type: BLOOD SPECIMENOrdering Facility: [facility] Address: [address] [place] [address] Performed By: #### 1 9123-9, , 2776-02 ####[facility] LABORATORYCLIA [id number] [place] [address] [place] Chloride [Moles/Vol] 101 mmol/L Normal 98-107 [facility] Comment on above: Order Comment: Speci men Type: BLOOD SPECIMENOrdering Facility: [facility] Address: [address] [place] [address] Performed By: #### 1 9123-9, 80892-4, 2776-02 ####[facility] LABORATORYCLIA [id number] [place] [address] [place] CO2 [Moles/Vol] 21 mmol/L Low 22-30 [facility] Comment on above: Order Comment: Speci men Type: BLOOD SPECIMENOrdering Facility: [facility] Address: [address] [place] [address] Performed By: #### 1 9123-9, 63120-3, 2777-1 ####[facility] [id number] [place] [address] [place] OF [facility] Creatinine [Mass/Vol] 0.68 mg/dL Normal 0.58-0.96 [facility] Comment on above: Order Comment: Tracy jurado Type: BLOOD SPECIMENOrdering Facility: [facility] Address: [address] [place] [address] Performed By: #### 1 9123-9, 45036-0, 2777- ####[facility] [id number] [place] [address] [facility] Creatinine and Glomerular filtration rate.predicted panel (S/P/Bld) 98 mL/min/1.73m??? Normal >=60 [facility] Comment on above: Order Comment: Tracy jurado Type: BLOOD SPECIMENOrdering Facility: [facility] Address: [address] [place] [address] Result Comment: Cindy mated Glomerular Filtration Rate [...] actual GFR. Performed By: #### 1 9123-9, 09073-0, 2777 ####[facility] LABORATORYIA [id number] [place] [address] [place] Glucose [Mass/Vol] 84 mg/dL Normal 74-99 [facility] Comment on above: Order Comment: Tracy jurado Type: BLOOD SPECIMENOrdering Facility: [facility] Address: [address] [place] [address] Result Comment: The [place] Diabetes Association (ADA) [...] 2016.39(Suppl 1). Performed By: #### 1 9123-9, 12981-5, 2776- ####[facility] LABORATORYCLIA [id number] [place] [address] [place] Potassium [Moles/Vol] 4.7 mmol/L Normal 3.7-5.1 [facility] Comment on above: Order Comment: Tracy jurado Type: BLOOD SPECIMENOrdering Facility: [facility] Address: [address] [place] [address] Performed By: #### 1 9123-9, , 2776-02 ####[facility] HE[facility] SERVICESCLIA [id number] [place] [address] [place] Protein [Mass/Vol] 7.4 g/dL Normal 6.3-8.0 [facility] Comment on above: Order Comment: Tracy jurado Type: BLOOD SPECIMENOrdering Facility: [facility] Address: [address] [place] [address] Performed By: #### 1 9123-9, , 2776-02 ####[facility] LABORATORYCLIA [id number] [place] [address] [place] Sodium [Moles/Vol] 132 mmol/L Low 136-144 [facility] Comment on above: Order Comment: Tracy jurado Type: BLOOD SPECIMENOrdering Facility: [facility] Address: [address] [place] [address] Performed By: #### 1 9123-9, 77534-7, 2776- ####[facility] LABORATORYCLIA [id number] [place] [address] [place] Urea nitrogen [Mass/Vol] 14 mg/dL Normal 7-21 [facility] Comment on above: Order Comment: Speci men Type: BLOOD SPECIMENOrdering Facility: [facility] Address: [address] [place] [address] Performed By: #### 1 9123-9, 90420-0, 2777-1 ####[facility] LABORATORYCLIA [id number] [address] OF [facility] MAGNESIUMon 09-28-2023 Magnesium [Mass/Vol] 2.1 mg/dL 1.7 - 2 .3 mg/dL [facility] Magnesium SerPl-mCncon 09-27 Magnesium [Mass/Vol] 2.1 mg/dL Normal 1.7-2.3 [facility] Comment on above: Order Comment: Speci men Type: BLOOD SPECIMENOrdering Facility: [facility] Address: [address] [place] [address] Performed By: #### 1 9123-9, 08923-5, 2777-1 ####[facility] LABORATORYCLIA [id number] [address] [place] No Panel Informationon 09-27 Interpretation and review of laboratory results Normal [facility] PHOSPHORUS INORGANICon 09-27 Phosphate [Mass/Vol] 2.8 mg/dL 2.7 - 4 .8 mg/dL [facility] PTH INTACTon 09-28-2023 Parathyrin.intact [Mass/Vol] 24 pg/mL 15 - 65 pg/mL [facility] Comment on above: Test methodology for this assay has moved from Siemens Centaur XP to Kiah mik 8000 effective November 12, 2021. Please note there may be a change in the reporting units and/or reference range. PTH-Intact SerPl-mCncon 09-09 Parathyrin.intact [Mass/Vol] 24 pg/mL Normal 15-65 [facility] Comment on above: Order Comment: Speci men Type: BLOOD SPECIMENOrdering Facility: [facility] Address: [address] [place] [address] Result Comment: Test methodology for this assay has moved from Siemens Centaur XP to Kiah mik 8000 effective November 12, 2021. Please note there may be a change in the reporting units and/or reference range. Performed By: #### 2 731-8 ####[facility] LABORATORYCLIA [id number] [place] [address] [facility] Parathyrin.intact [Mass/Vol] on 09-28-2023 Interpretation and review of laboratory results Normal [facility] Phosphate SerPl-mCncon 09-27 Phosphate [Mass/Vol] 2.8 mg/dL Normal 2.7-4.8 [facility] Comment on above: Order Comment: Speci men Type: BLOOD SPECIMENOrdering Facility: [facility] Address: [address] [place] [address] Performed By: #### 1 9123-9, 07688-1, 2777-1 ####[facility] LABORATORYCLIA [id number] [place] [address] [facility] Naya 09-24-2023 CNPN Telephone (NEAGCLM) -------- MARY VALIENTE ([id number]) 1960 F [facility] Date Time Provider Department 09/24/23 ROSIO [...] 2:40 PM Signed Submitted Endo referral to [facility] portal. Confirmation number: [id number] Allergies As of Date: 09/24/2023 Noted Allergy Reaction BEE STING 06/21/2012 7 - Swelling CODEINE 06/21/2012 4 - Hives 8 - GI Upset HYDROCODONE-ACETAMINOPHE N 06/21/2012 11 - Vomiting Date Reviewed: 09/14/2023 Reviewed by: Samreen Nichols MA - Fully Assessed Primary Visit Diagnosis:Osteoporosis, unspecified osteoporosis type, unspecified pathological fracture presence [M81.0] Order(s):CONSULT TO OSTEOPOROSIS CLINIC () [5899655] Order #: [id number]: 1 Prescriptions as of 09/25/2023 - gabapentin [...] Status:Closed by TYLER EPSTEIN on 09/24/23 [facility] 09-23-2023 CNPN Telephone (NEAGCLM) -------- MARY VALIENTE ([id number]) 1960 F [facility] Date Time Provider Department 09/23/23 ROSIO BUTTERFIELD I NEAGCLM During your visit today, we recorded the following information about you: Tiffanie Shah RN 09/23/2023 9:54 AM Signed Spoke with Concepcion ([phone]) from Dr. Marshall's office. She stated that [...] MA - Fully Assessed 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 - Other [3602] Prescriptions as of [...] Status:Closed by TIFFANIE SHAH on 09/23/23 [facility] 09-22-2023 CNPN Telephone (NEAGCLM) -------- MARY VALIENTE ([id number]) 1960 F CHT Date Time Provider Department 09/22/23 ROSIO BUTTERFIELD I NEAGCLM During your visit today, we recorded the following information about you: Tyler Epstein RN 09/22/2023 12:57 PM Signed Received a voicemail from Concepcion with Dr. Marshall's office. [phone] Attempted to call back and there was no answer. M asking for call back. Tyler Epstein RN Allergies As of Date: 09/22/2023 Noted Allergy Reaction BEE STING 06/21/2012 7 - Swelling CODEINE 06/21/2012 4 - Hives 8 - GI Upset HYDROCODONE-ACETAMINOPHE N 06/21/2012 11 - Vomiting Date Reviewed: 09/14/2023 Reviewed by: Samreen Nichols MA - Fully Assessed 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 - Other [8649] Prescriptions as of 09/22/2023 - gabapentin (NEURONTIN) [...] Encounter Status:Closed by TYLER EPSTEIN on 09/22/23 [facility] Naya 09-21-2023 [place] Telephone (NEAGCLM) -------- MARY VALIENTE ([id number]) 1960 F CHT Date Time Provider Department [...] MA - Fully Assessed 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 - Other [8327] Prescriptions as of 09/21/2023 - gabapentin (NEURONTIN) [...] Status:Closed by TYLER EPSTEIN on 09/21/23 Normal [facility] CBC W Auto Differential pane l (Bld)on 09-16-2023 Basophils (Bld) [#/Vol] 0.03 10*3/uL Normal <0.11 [facility] Comment on above: Order Comment: Speci men Type: BLOOD SPECIMEN [facility] Address: [address] [place] [address] Performed By: #### 5 7021-8 #### [facility] CLIA [id number] [address] [place] [address]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 INR Coag (PPP) [Relative time] 1.05 {INR} Normal 0.90-1.[address] [facility] Comment on above: Performed By: #### T S #### [facility] [address] [place] [address], PT Coag (PPP) [Time] 11.4 s Normal 9.4-12.[address] [facility] Comment on above: Performed By: #### T S #### [facility] [address] [place] [address], INR Coag (PPP) [Relative time] 1.05 {INR} 0.90 - 1.10 [facility] Interpretation and review of laboratory results Normal [facility] PT Coag (PPP) [Time] 11.[address] [facility] TYPE AND SCREENon 01-06-2023 ABO and Rh group Nom (Bld) Blood group A Rh(D) positive Normal [facility] Comment on above: Performed By: #### T S #### [facility] [address] [place] [address], ABO and Rh group Nom (Bld) No Previous Results Normal [facility] Comment on above: Performed By: #### T S #### [facility] [address] [place] [address], ABSC INT Negative Normal [facility] Comment on above: Performed By: #### T S #### [facility] [address] [place] [address], XR HIP LEFT W/ PELVIS MIN 2- [...] or pelvic fracture. MACRO: None Normal [facility] Laboratory - Drug toxicology Ordered By: Boubacar Cardoso on 09-11-2022 Amphetamines Ql (U) Negative <1000 ng/mL [facility] Benzodiazepines Ql (U) Negative < 200 ng/mL [facility] Cannabinoids Screen Ql (U) Negative < 50 ng/mL [facility] Cocaine Ql (U) Negative < 300 ng/mL [facility] Opiates Ql (U) Negative < 300 ng/mL [facility] No Panel InformationOrdered By: Boubacar Cardoso on 09-11-2022 MDMA (Ecstasy) Screen Negative < 500 ng/mL [facility] Urine Barbiturates Screen Negative < 200 ng/mL [facility] Urine Drug Screen Comment [facility] Comment on above: CONFIRMATORY TESTING FOR ALL [...] TESTING MUST BE ORDERED SEPARATELY. USE TESTMNEMONIC: [facility] Urine Methadone Screen Negative < 300 ng/mL [facility] Urine phencyclidine (PCP) de tectionOrdered By: Boubacar Cardoso on 09-11-2022 Phencyclidine Ql (U) Negative < 25 ng/mL [facility] Basophil percentageOrdered B y: Jerrica Marshall on 06-26-2022 Chloride [Moles/Vol] 106 mmol/L 98-107 [facility] Glucose [Mass/Vol] 104 mg/dL 74-106 [facility] Comment on above: Fasting Glucose resu lt from 100 to 125 mg/dL suggests IMPAIRED HOMEOSTASIS per A.D.A. criteria. Potassium [Moles/Vol] 4.3 mmol/L 3.5-5.1 [facility] Sodium [Moles/Vol] 137 mmol/L 136-145 [facility] Laboratory - Chemistry and C hemistry - challengeOrdered By: Jerrica Marshall on 06-26-2022 CO2 [Moles/Vol] 25.0 mmol/L 21.0-32.0 [facility] Urea nitrogen/Creatinine [Mass ratio] 25.9 mg/mg 10- [facility] No Panel InformationOrdered By: Jerrica Marshall on 06-26-2022 Estimated GFR (MDRD) Amer 110 mL/min >60 [facility] Comment on above: GFR Calc Estimated GFR (MDRD) Non-Af Amer 91 mL/min >60 [facility] Comment on above: Non- GFR Calc Vitamin D 25-Hydroxy 55.3 ng/mL [facility] Comment on above: Vitamin D 25(OH) Sta tus Range Deficiency <20 ng/mL (50nmol/L) Insufficiency 20 - 30 ng/mL (50 - 75 nmol/L) Sufficiency 30 - 100 ng/mL (75 - 250 nmol/L) Toxicity >100 ng/mL (>250 nmol/L) Serum or plasma calcium yuliet urement (mass/volume)Ordered By: Jerrica Marshall on 06-26-2022 Calcium [Mass/Vol] 9.0 mg/dL 8.5-10.1 [facility] Serum or plasma creatinine m easurement (mass/volume)Ordered By: Jerrica Marshall on 06-26-2022 Creatinine [Mass/Vol] 0.70 mg/dL 0.55-1.02 [facility] Comment on above: The validity of the calculated GFR & GFRAA in patients over 70 years has not been determined. Clinical correlation is essential. Serum or plasma urea nitroge n measurement (mass/volume)Ordered By: Jerrica Marshall on 06-26-2022 Urea nitrogen [Mass/Vol] 18 mg/dL 08-26 [facility] Thin prep Papanicolaou smear with manual screeningOrdered By: Jerrica Marshall on 06-26-2022 Thin prep Papanicolaou smear with manual screening 6 5-15 [facility] Anaerobic cultureOrdered By: Wilber Delong on 05-12-2022 Bacteria identified Anaer cx Nom (Unsp spec) No growth in 5 days. [facility] Routine wound cultureOrdered By: Wilebr Delong on 05-09-2022 Bacteria identified Cx Nom (Wound) No growth aerobically. [facility] Gram stain for investigation of transfusion reactionOrdered By: Wilber Sindi on 05-08-2022 Microscopic observation Gram stain Nom (Unsp spec) [facility] Absolute lymphocyte countOrd ered By: Wilber Sindi on 05-07-2022 Lymphocytes Auto (Unsp spec) [#/Vol] 2.29 10*3/uL 0.83-4.51 [facility] Basophil percentageOrdered B y: Wilber Delong on 05-07-2022 Basophils/100 WBC (Bld) 0.4 % 0-1 [facility] Bilirubin [Mass/Vol] 0.20 mg/dL 0.20-1.00 [facility] Comment on above: For patients on eltr ombopag therapy, use of Dimension [place] TBIL is not recommended. Chloride [Moles/Vol] 104 mmol/L 98-107 [facility] Eosinophils/100 WBC (Bld) 0.9 % 0-5 [facility] Glucose [Mass/Vol] 130 mg/dL 74-106 [facility] Comment on above: Fasting Glucose resu lt greater than or equal to 126 mg/dL suggests DIABETES MELLITUS per A.D.A. criteria. Neutrophils (Bld) [#/Vol] 4.5 10*3/uL 2.0-7.7 [facility] Neutrophils/100 WBC (Bld) 59.8 % 47-70 [facility] Potassium [Moles/Vol] 3.7 mmol/L 3.5-5.1 [facility] Protein [Mass/Vol] 8.1 g/dL 6.4-8.2 [facility] Sodium [Moles/Vol] 138 mmol/L 136-145 [facility] WBC (Bld) [#/Vol] 7.5 10*3/uL 4.4-11.0 [facility] Blood erythrocytes count (nu mber/volume)Ordered By: Wilber Delong on 05-07-2022 RBC (Bld) [#/Vol] 4.60 10*6/uL 4.2-5.4 [facility] Blood hemoglobin measurement (mass/volume)Ordered By: Wilber Delong on 05-07-2022 Hemoglobin (Bld) [Mass/Vol] 14.2 g/dL 12.0-15.0 [facility] Blood lymphocytes/100 leukoc ytesOrdered By: Wilber Delong on 05-07-2022 Lymphocytes/100 WBC (Bld) 30.7 % 19-41 [facility] Blood monocytes/100 leukocyt esOrdered By: Wilber Delong on 05-07-2022 Monocytes/100 WBC (Bld) 7.8 % 0-10 [facility] Blood platelet mean volumeOr dered By: Wilber Delong on 05-07-2022 Platelet mean volume (Bld) [Entitic vol] 9.4 fL 6.2-12.0 [facility] Determination of erythrocyte mean corpuscular volume (MCV)Ordered By: Wilber Delong on 05-07-2022 MCV (RBC) [Entitic vol] 93.5 fL 81-99 [facility] Erythrocyte sedimentation ra teOrdered By: Wilber Delong on 05-07-2022 ESR (Bld) [Velocity] 29 mm/h 0-30 [facility] Hematocrit Auto (Bld) [Volum e fraction]Ordered By: Wilber Delong on 05-07-2022 Hematocrit (Bld) [Volume fraction] 43.0 % 37-47 [facility] Laboratory - Chemistry and C hemistry - challengeOrdered By: Wilber Delong on 05-07-2022 ALP [Catalytic activity/Vol] 120 U/L 45-117 [facility] ALT [Catalytic activity/Vol] 24 U/L 13-56 [facility] CO2 [Moles/Vol] 27.0 mmol/L 21.0-32.0 [facility] Globulin (S) [Mass/Vol] 4.1 g/dL 2.2-4.2 [facility] Urea nitrogen/Creatinine [Mass ratio] 23.5 mg/mg 10-20 [facility] Laboratory - Hematology and Cell countsOrdered By: Wilber Delong on 05-07-2022 Erythrocyte distribution width (RBC) [Entitic vol] 44.4 fL 35.1-43.9 [facility] Erythrocyte distribution width (RBC) [Ratio] 13.0 % 11.6-14.6 [facility] Immature granulocytes/100 WBC (Bld) 0.400 % 0.0-0.9 [facility] Comment on above: IG% - Immature Granu locytes (promyelocytes, myelocytes and metamyelocytes) > 1% indicates that a LEFT SHIFT is Present. MCH (RBC) [Entitic mass] 30.9 pg 27.0-32.0 [facility] Nucleated RBC/100 WBC (Bld) [Ratio] 0 % 0-5 [facility] MCHC Auto (RBC) [Mass/Vol]Or dered By: Wilber Delong on 05-07-2022 MCHC (RBC) [Mass/Vol] 33.0 g/dL 32-36 [facility] No Panel InformationOrdered By: Wilber Delong on 05-07-2022 Estimated GFR (MDRD) Amer 92 mL/min >60 [facility] Comment on above: GFR Calc Estimated GFR (MDRD) Non-Af Amer 76 mL/min >60 [facility] Comment on above: Non- GFR Calc Platelets bldOrdered By: Rosario Delong on 05-07-2022 Platelets (Bld) [#/Vol] 442 10*3/uL 150-450 [facility] Serum or plasma C reactive p rotein measurement (mass/volume)Ordered By: Wilber Delong on 05-07-2022 CRP [Mass/Vol] 8.12 mg/L 0.0-3.0 [facility] Comment on above: C-Reactive Protein ( CRP) provides useful information for thediagnosis, therapy and monitoring of inflammatory processesand associated diseases. For the evaluation of Relative Riskfor Cardiovascular Disease, a High Sensitivity CRP (HSCRP)should be ordered. Serum or plasma albumin yuliet urement (mass/volume)Ordered By: Wilber Delong on 05-07-2022 Albumin [Mass/Vol] 4.0 g/dL 3.2-5.0 [facility] Serum or plasma albumin/glob ulin mass ratioOrdered By: Wilber Delong on 05-07-2022 Albumin/Globulin [Mass ratio] 1.0 {ratio} 0.9-2.4 [facility] Serum or plasma calcium yuliet urement (mass/volume)Ordered By: Wilber Delong on 05-07-2022 Calcium [Mass/Vol] 9.6 mg/dL 8.5-10.1 [facility] Serum or plasma creatinine m easurement (mass/volume)Ordered By: Wilber Delong on 05-07-2022 Creatinine [Mass/Vol] 0.81 mg/dL 0.55-1.02 [facility] Comment on above: The validity of the calculated GFR & GFRAA in patients over 70 years has not been determined. Clinical correlation is essential. Serum or plasma transthyreti n measurement (mass/volume)Ordered By: Wilber Delong on 05-07-2022 Prealbumin [Mass/Vol] 19.7 mg/dL 20.0-40.0 [facility] Serum or plasma urea nitroge n measurement (mass/volume)Ordered By: Wilber Delong on 05-07-2022 Urea nitrogen [Mass/Vol] 19 mg/dL 7-18 [facility] Thin prep Papanicolaou smear with manual screeningOrdered By: Wilber Delong on 05-07-2022 Thin prep Papanicolaou smear with manual screening 20 U/L 15-37 [facility] Thin prep Papanicolaou smear with manual screening 7 5-15 [facility] Absolute lymphocyte countOrd ered By: Dr. Tidwell on 04-28-2022 Lymphocytes Auto (Unsp spec) [#/Vol] 1.42 10*3/uL 0.83-4.51 [facility] Basophil percentageOrdered B y: Dr. Tidwell on 04-28-2022 Basophils/100 WBC (Bld) 0.5 % 0-1 [facility] Chloride [Moles/Vol] 106 mmol/L 98-107 [facility] Eosinophils/100 WBC (Bld) 0.2 % 0-5 [facility] Glucose [Mass/Vol] 98 mg/dL 74-106 [facility] Neutrophils (Bld) [#/Vol] 6.2 10*3/uL 2.0-7.7 [facility] Neutrophils/100 WBC (Bld) 73.4 % 47-70 [facility] Potassium [Moles/Vol] 4.3 mmol/L 3.5-5.1 [facility] Sodium [Moles/Vol] 138 mmol/L 136-145 [facility] WBC (Bld) [#/Vol] 8.4 10*3/uL 4.4-11.0 [facility] Blood erythrocytes count (nu mber/volume)Ordered By: Dr. Tidwell on 04-28-2022 RBC (Bld) [#/Vol] 4.26 10*6/uL 4.2-5.4 [facility] Blood hemoglobin measurement (mass/volume)Ordered By: Dr. Tidwell on 04-28-2022 Hemoglobin (Bld) [Mass/Vol] 13.4 g/dL 12.0-15.0 [facility] Blood lymphocytes/100 leukoc ytesOrdered By: Dr. Tidwell on 04-28-2022 Lymphocytes/100 WBC (Bld) 16.9 % 19-41 [facility] Blood monocytes/100 leukocyt esOrdered By: Dr. Tidwell on 04-28-2022 Monocytes/100 WBC (Bld) 8.5 % 0-10 [facility] Blood platelet mean volumeOr dered By: Dr. Tidwell on 04-28-2022 Platelet mean volume (Bld) [Entitic vol] 8.9 fL 6.2-12.0 [facility] Determination of erythrocyte mean corpuscular volume (MCV)Ordered By: Dr. Tidwell on 04-28-2022 MCV (RBC) [Entitic vol] 93.9 fL 81-99 [facility] Hematocrit Auto (Bld) [Volum e fraction]Ordered By: Dr. Tidwell on 04-28-2022 Hematocrit (Bld) [Volume fraction] 40.0 % 37-47 [facility] Laboratory - Chemistry and C hemistry - challengeOrdered By: Dr. Tidwell on 04-28-2022 CO2 [Moles/Vol] 29.0 mmol/L 21.0-32.0 [facility] Urea nitrogen/Creatinine [Mass ratio] 22.2 mg/mg 10-20 [facility] Laboratory - Hematology and Cell countsOrdered By: Dr. Tidwell on 04-28-2022 Erythrocyte distribution width (RBC) [Entitic vol] 44.4 fL 35.1-43.9 [facility] Erythrocyte distribution width (RBC) [Ratio] 13.0 % 11.6-14.6 [facility] Immature granulocytes/100 WBC (Bld) 0.500 % 0.0-0.9 [facility] Comment on above: IG% - Immature Granu locytes (promyelocytes, myelocytes and metamyelocytes) > 1% indicates that a LEFT SHIFT is Present. MCH (RBC) [Entitic mass] 31.5 pg 27.0-32.0 [facility] Nucleated RBC/100 WBC (Bld) [Ratio] 0 % 0-5 [facility] MCHC Auto (RBC) [Mass/Vol]Or dered By: Dr. Tidwell on 04-28-2022 MCHC (RBC) [Mass/Vol] 33.5 g/dL 32-36 [facility] No Panel InformationOrdered By: Dr. Tidwell on 04-28-2022 Estimated Creatinine Clearance Calc 58.19 ml/min [facility] Estimated GFR (MDRD) Amer 105 mL/min >60 [facility] Comment on above: GFR Calc Estimated GFR (MDRD) Non-Af Amer 87 mL/min >60 [facility] Comment on above: Non- GFR Calc Platelets bldOrdered By: Dr. Tidwell on 04-28-2022 Platelets (Bld) [#/Vol] 407 10*3/uL 150-450 [facility] Serum or plasma calcium yuliet urement (mass/volume)Ordered By: Dr. Tidwell on 04-28-2022 Calcium [Mass/Vol] 9.4 mg/dL 8.5-10.1 [facility] Serum or plasma creatinine m easurement (mass/volume)Ordered By: Dr. Tidwell on 04-28-2022 Creatinine [Mass/Vol] 0.72 mg/dL 0.55-1.02 [facility] Comment on above: The validity of the calculated GFR & GFRAA in patients over 70 years has not been determined. Clinical correlation is essential. Serum or plasma urea nitroge n measurement (mass/volume)Ordered By: Dr. Tidwell on 04-28-2022 Urea nitrogen [Mass/Vol] 16 mg/dL 7-18 [facility] Thin prep Papanicolaou smear with manual screeningOrdered By: Dr. Tidwell on 04-28-2022 Thin prep Papanicolaou smear with manual screening 3 5-15 [facility] Laboratory - Microbiology an d Antimicrobial susceptibilityon 12-11-2021 SARS-CoV-2 (COVID-19) RNA PHILL+probe Ql (Unsp spec) Detected Not Detect [facility] Work Phone: [phone] Comment on above: Normal Reference Ran ge: [...] percentageon 2021 Chloride [Moles/Vol] 106 mmol/L 98-107 [facility] Work Phone: [phone] Glucose [Mass/Vol] 96 mg/dL 74-106 [facility] Work Phone: [phone] Potassium [Moles/Vol] 4.4 mmol/L 3.5-5.1 [facility] Work Phone: [phone] Sodium [Moles/Vol] 137 mmol/L 136-145 [facility] Work Phone: [phone] Laboratory - Chemistry and C hemistry - challengeon 09-23-2021 CO2 [Moles/Vol] 27.0 mmol/L 21.0-32.0 [facility] Work Phone: [phone] Urea nitrogen/Creatinine [Mass ratio] 19.0 mg/mg 10-20 [facility] Work Phone: [phone] Panel Informationon 09-23 Estimated GFR (MDRD) Amer 123 mL/min >60 [facility] Work Phone: [phone] Comment on above: GFR Calc Estimated GFR (MDRD) Non-Af Amer 102 mL/min >60 [facility] Work Phone: [phone] Comment on above: Non- GFR Calc Vitamin D 25-Hydroxy 33.8 ng/mL [facility] Work Phone: Comment on above: Vitamin D 25(OH) Sta tus Range Deficiency <20 ng/mL (50nmol/L) Insufficiency 20 - 30 ng/mL (50 - 75 nmol/L) Sufficiency 30 - 100 ng/mL (75 - 250 nmol/L) Toxicity >100 ng/mL (>250 nmol/L) Serum or plasma calcium yuliet urement (mass/volume)on 09-23-2021 Calcium [Mass/Vol] 9.2 mg/dL 8.5-10.1 [facility] Work Phone: Serum or plasma creatinine m easurement (mass/volume)on 09-23-2021 Creatinine [Mass/Vol] 0.63 mg/dL 0.55-1.02 [facility] Work Phone: Comment on above: The validity of the calculated GFR & GFRAA in patients over 70 years has not been determined. Clinical correlation is essential. Serum or plasma urea nitroge n measurement (mass/volume)on 09-23-2021 Urea nitrogen [Mass/Vol] 12 mg/dL 7-18 [facility] Work Phone: Thin prep Papanicolaou smear with manual screeningon 09-23-2021 Thin prep Papanicolaou smear with manual screening 4 5-15 [facility] Work Phone: Basophil percentageon 2021 Basophil percentage 25-50 SEEN /hpf 0-5 [facility] Work Phone: [phone] Bilirubin Test strip Ql (U)o n 06-06-2021 Bilirubin Ql (U) Negative Negative [facility] Work Phone: Culture, urineon 06-06-2021 Bacteria identified Cx Nom (U) Presumptive E. coli [facility] Work Phone: [phone] Ketones Test strip Ql (U)on 06-06-2021 Ketones Ql (U) Negative Negative [facility] Work Phone: Mucus LM Ql (Urine sed)on Mucus Ql (Urine sed) 0 SEEN /hpf [facility] Work Phone: Nitrite Test strip Ql (U)on 06-06-2021 Nitrite Ql (U) Negative Negative [facility] Work Phone: Protein Test strip Ql (U)on 06-06-2021 Protein Ql (U) Negative Negative [facility] Work Phone: [phone] Squamous epithelial cells de tection in urine sediment by light microscopyon 06-06-2021 Epithelial cells.squamous LM Ql (Urine sed) 0-5 SEEN /hpf 5-10 [facility] Work Phone: Urine blood detectionon 05-11 RBC Ql (U) 10 /ul Negative [facility] Work Phone: [phone] RBC Ql (U) 0-5 SEEN /hpf 0-5 [facility] Work Phone: Urine clarityon 06-06-2021 Clarity (U) Sl. Cloudy Clear [facility] Work Phone: Urine color determinationon 06-06-2021 Color (U) Yellow Yellow [facility] Work Phone: Urine glucose detectionon Glucose Ql (U) Normal mg/dl Normal [facility] Work Phone: Urine leukocyte esterase det ection by dipstickon 06-06-2021 Leukocyte esterase Test strip Ql (U) 500 /ul Negative [facility] Work Phone: Urine pHon 06-06-2021 pH (U) 6.0 [pH] 5.0 - 8.0 [facility] Work Phone: Urine sediment bacteria coun t by microscopy (number/high power field)on 06-06-2021 Bacteria LM.HPF (Urine sed) [#/Area] 1 /[HPF] None Seen [facility] Work Phone: Urine specific gravity measu rementon 06-06-2021 Specific gravity (U) [Rel density] 1.010 1.002-1.030 [facility] Work Phone: Urobilinogen Auto test strip Ql (U)on 06-06-2021 Urobilinogen Ql (U) Normal mg/dl Normal [facility] Work Phone: Absolute lymphocyte counton 04-18-2021 Lymphocytes Auto (Unsp spec) [#/Vol] 1.90 10*3/uL 0.83-4.51 [facility] Work Phone: Basophil percentageon 2021 Amylase [Catalytic activity/Vol] 53 U/L 25-115 [facility] Work Phone: Basophils/100 WBC (Bld) 0.6 % 0-1 [facility] Work Phone: Bilirubin [Mass/Vol] 0.20 mg/dL 0.20-1.00 [facility] Work Phone: Comment on above: For patients on eltr ombopag therapy, use of Dimension [place] TBIL is not recommended. Chloride [Moles/Vol] 101 mmol/L 98-107 [facility] Work Phone: Eosinophils/100 WBC (Bld) 0.6 % 0-5 [facility] Work Phone: Glucose [Mass/Vol] 113 mg/dL 74-106 [facility] Work Phone: Comment on above: Fasting Glucose resu lt from 100 to 125 mg/dL suggests IMPAIRED HOMEOSTASIS per A.D.A. criteria. Neutrophils (Bld) [#/Vol] 4.6 10*3/uL 2.0-7.7 [facility] Work Phone: Neutrophils/100 WBC (Bld) 63.6 % 47-70 [facility] Work Phone: Potassium [Moles/Vol] 4.2 mmol/L 3.5-5.1 [facility] Work Phone: Protein [Mass/Vol] 8.0 g/dL 6.4-8.2 [facility] Work Phone: Sodium [Moles/Vol] 134 mmol/L 136-145 [facility] Work Phone: WBC (Bld) [#/Vol] 7.2 10*3/uL 4.4-11.0 [facility]: Blood erythrocytes count (nu mber/volume)on 04-18-2021 RBC (Bld) [#/Vol] 4.32 10*6/uL 4.2-5.4 [facility] Work Phone: Blood hemoglobin measurement (mass/volume)on 04-18-2021 Hemoglobin (Bld) [Mass/Vol] 13.6 g/dL 12.0-15.0 [facility] Work Phone: Blood lymphocytes/100 leukoc yteson 04-18-2021 Lymphocytes/100 WBC (Bld) 26.6 % 19-41 [facility] Work Phone: Blood monocytes/100 leukocyt eson 04-18-2021 Monocytes/100 WBC (Bld) 8.3 % 0-10 [facility] Work Phone: Blood platelet mean volumeon 04-18-2021 Platelet mean volume (Bld) [Entitic vol] 8.7 fL 6.2-12.0 [facility] Work Phone: Determination of erythrocyte mean corpuscular volume (MCV)on 04-18-2021 MCV (RBC) [Entitic vol] 90.3 fL 81-99 [facility] Work Phone: Erythrocyte sedimentation ra david 04-18-2021 ESR (Bld) [Velocity] 18 mm/h 0-30 [facility] Work Phone: Hematocrit Auto (Bld) [Volum e fraction]on 04-18-2021 Hematocrit (Bld) [Volume fraction] 39.0 % 37-47 [facility] Work Phone: Laboratory - Chemistry and C hemistry - challengeon 04-18-2021 ALP [Catalytic activity/Vol] 111 U/L 45-117 [facility] Work Phone: ALT [Catalytic activity/Vol] 17 U/L 13-56 [facility] Work Phone: [phone] CO2 [Moles/Vol] 27.0 mmol/L 21.0-32.0 [facility] Work Phone: [phone] Globulin (S) [Mass/Vol] 3.8 g/dL 2.2-4.2 [facility] Work Phone: [phone] Lipase [Catalytic activity/Vol] 84 U/L 73-393 [facility] Work Phone: [phone] Urea nitrogen/Creatinine [Mass ratio] 22.9 mg/mg 10-20 [facility] [facility] Work Phone: [phone] Laboratory - Hematology and Cell countson 04-18-2021 Erythrocyte distribution width (RBC) [Entitic vol] 48.9 fL 35.1-43.9 [facility] Work Phone: [phone] Erythrocyte distribution width (RBC) [Ratio] 14.6 % 11.6-14.6 [facility] Work Phone: [phone] Immature granulocytes/100 WBC (Bld) 0.300 % 0.0-0.9 [facility] Work Phone: [phone] Comment on above: IG% - Immature Granu locytes (promyelocytes, myelocytes and metamyelocytes) > 1% indicates that a LEFT SHIFT is Present. MCH (RBC) [Entitic mass] 31.5 pg 27.0-32.0 [facility] Work Phone: [phone] Nucleated RBC/100 WBC (Bld) [Ratio] 0 % 0-5 [facility] Work Phone: [phone] MCHC Auto (RBC) [Mass/Vol]on 04-18-2021 MCHC (RBC) [Mass/Vol] 34.9 g/dL 32-36 [facility] Work Phone: [phone] Panel Informationon 04-18 Estimated GFR (MDRD) Amer 109 mL/min >60 [facility] Work Phone: [phone] Comment on above: GFR Calc Estimated GFR (MDRD) Non-Af Amer 90 mL/min >60 [facility] Work Phone: [phone] Comment on above: Non- GFR Calc Platelets bldon 04-18-2021 Platelets (Bld) [#/Vol] 461 10*3/uL 150-450 [facility] Work Phone: Serum or plasma C reactive p rotein measurement (mass/volume)on 04-18-2021 CRP [Mass/Vol] mg/L 0.0-3.0 [facility] Work Phone: Comment on above: C-Reactive Protein ( CRP) provides useful information for thediagnosis, therapy and monitoring of inflammatory processesand associated diseases. For the evaluation of Relative Riskfor Cardiovascular Disease, a High Sensitivity CRP (HSCRP)should be ordered. Serum or plasma albumin yuliet urement (mass/volume)on 04-18-2021 Albumin [Mass/Vol] 4.2 g/dL 3.2-5.0 [facility] Work Phone: Serum or plasma albumin/glob ulin mass ratioon 04-18-2021 Albumin/Globulin [Mass ratio] 1.1 {ratio} 0.9-2.4 [facility] Work Phone: Serum or plasma calcium yuliet urement (mass/volume)on 04-18-2021 Calcium [Mass/Vol] 9.2 mg/dL 8.5-10.1 [facility] Work Phone: Serum or plasma creatinine m easurement (mass/volume)on 04-18-2021 Creatinine [Mass/Vol] 0.70 mg/dL 0.55-1.02 [facility] Work Phone: Comment on above: The validity of the calculated GFR & GFRAA in patients over 70 years has not been determined. Clinical correlation is essential. Serum or plasma urea nitroge n measurement (mass/volume)on 04-18-2021 Urea nitrogen [Mass/Vol] 16 mg/dL 7-18 [facility] Work Phone: Thin prep Papanicolaou smear with manual screeningon 04-18-2021 Thin prep Papanicolaou smear with manual screening 13 U/L 15-37 [facility] Work Phone: Thin prep Papanicolaou smear with manual screening 6 5-15 [facility] Work Phone: XR Scoliosis Studyon 022 XR Scoliosis Study Examination: XR Scoliosis Study Clinical Indication: [id number]: Scoliosis deformity of spine Comparison: CT 10/04/2020 [...] by: ESTEBAN BUTTERFIELD MD, Date: 04/15/2021 12:02 [facility] Absolute lymphocyte counton 03-05-2021 Lymphocytes Auto (Unsp spec) [#/Vol] 1.83 10*3/uL 0.83-4.51 [facility] Work Phone: Basophil percentageon 2021 Basophils/100 WBC (Bld) 0.4 % 0-1 [facility] Work Phone: Eosinophils/100 WBC (Bld) 0.4 % 0-5 [facility] Work Phone: Neutrophils (Bld) [#/Vol] 5.0 10*3/uL 2.0-7.7 [facility] Work Phone: Neutrophils/100 WBC (Bld) 66.8 % 47-70 [facility] Work Phone: [phone] WBC (Bld) [#/Vol] 7.5 10*3/uL 4.4-11.0 [facility] Work Phone: Blood erythrocytes count (nu mber/volume)on 03-05-2021 RBC (Bld) [#/Vol] 4.33 10*6/uL 4.2-5.4 [facility]: Blood hemoglobin measurement (mass/volume)on 03-05-2021 Hemoglobin (Bld) [Mass/Vol] 12.8 g/dL 12.0-15.0 [facility] Work Phone: Blood lymphocytes/100 leukoc yteson 03-05-2021 Lymphocytes/100 WBC (Bld) 24.5 % 19-41 [facility] Work Phone: Blood monocytes/100 leukocyt eson 03-05-2021 Monocytes/100 WBC (Bld) 7.5 % 0-10 [facility] Work Phone: Blood platelet mean volumeon 03-05-2021 Platelet mean volume (Bld) [Entitic vol] 9.6 fL 6.2-12.0 [facility] Work Phone: [phone] Determination of erythrocyte mean corpuscular volume (MCV)on 03-05-2021 MCV (RBC) [Entitic vol] 87.3 fL 81-99 [facility] Work Phone: Erythrocyte sedimentation ra david 03-05-2021 ESR (Bld) [Velocity] 13 mm/h 0-30 [facility] Work Phone: Hematocrit Auto (Bld) [Volum e fraction]on 03-05-2021 Hematocrit (Bld) [Volume fraction] 37.8 % 37-47 [facility] Work Phone: [phone] Laboratory - Hematology and Cell countson 03-05-2021 Erythrocyte distribution width (RBC) [Entitic vol] 45.9 fL 35.1-43.9 [facility] Work Phone: [phone] Erythrocyte distribution width (RBC) [Ratio] 14.2 % 11.6-14.6 [facility] Work Phone: [phone] Immature granulocytes/100 WBC (Bld) 0.400 % 0.0-0.9 [facility] Work Phone: [phone] Comment on above: IG% - Immature Granu locytes (promyelocytes, myelocytes and metamyelocytes) > 1% indicates that a LEFT SHIFT is Present. MCH (RBC) [Entitic mass] 29.6 pg 27.0-32.0 [facility] Work Phone: [phone] Nucleated RBC/100 WBC (Bld) [Ratio] 0 % 0-5 [facility] Work Phone: [phone] MCHC Auto (RBC) [Mass/Vol]on 03-05-2021 MCHC (RBC) [Mass/Vol] 33.9 g/dL 32-36 [facility] Work Phone: [phone] Platelets bldon 03-05-2021 Platelets (Bld) [#/Vol] 417 10*3/uL 150-450 [facility] Work Phone: [phone] Serum or plasma C reactive p rotein measurement (mass/volume)on 03-05-2021 CRP [Mass/Vol] mg/L 0.0-3.0 [facility] Work Phone: [phone] Comment on above: C-Reactive Protein ( CRP) provides useful information for thediagnosis, therapy and monitoring of inflammatory processesand associated diseases. For the evaluation of Relative Riskfor Cardiovascular Disease, a High Sensitivity CRP (HSCRP)should be ordered. Laboratory - Drug toxicology on 01-08-2021 Amphetamines Ql (U) Negative [facility] Work Phone: [phone] Benzodiazepines Ql (U) Negative [facility] Work Phone: [phone] Cannabinoids Screen Ql (U) Negative [facility] Work Phone: [phone] Cocaine Ql (U) Negative [facility] Work Phone: [phone] Opiates Ql (U) Positive [facility] Work Phone: No Panel Informationon 01-08 Miscellaneous Test See comment [facility] Work Phone: Comment on above: [id number] 6+OXYCODONE-B UND (ng/mL) DRUG RESULT SCREEN CUTOFF____ [...] UR 2315 ng/mL 300 TESTING PERFORMED AT [facility]. ORIGINAL REPORT ON FILE IN LAB CONTAINS ADDITIONAL TEST SITE INFORMATION. Urine Barbiturates Screen Negative [facility] Work Phone: [phone] Urine Drug Screen Comment [facility] Work Phone: Comment on above: CONFIRMATORY TESTING [...] USE TESTMNEMONIC: [facility] Urine Methadone Screen Negative [facility] Work Phone: Urine Methamphetamine-MDMA Screen Positive [facility] Work Phone: Urine phencyclidine (PCP) de tectionon 01-08-2021 Phencyclidine Ql (U) Negative [facility] Work Phone: SCOLIOSIS SPINE STANDINGon 1 02-28-2020 [...] M.D. Signed By: ERNESTO SPRAGUE M.D. [facility] SCOLIOSIS SPINE STANDINGon 0 10-26-2020 SCOLIOSIS [...] MEYER M.D. Signed By: KIMBERLY MEYER M.D. [facility] [employer] PCR Stool Pathogens (GI Panel)on 10-13-2020 Adenovirus F 40/41 Not detected Normal NOT DETECTED [facility] Comment on above: Order Comment: GI Pa ninfa for: Clostridium Difficile, Stool Culture , Ova/Parasite, Giardia/Crypto, Shiga Toxin Performed By: #### B IOGI #### [facility] [address] [place], [place] [id number] Antibiotic Normal [facility] Comment on above: Order Comment: GI Pa ninfa for: Clostridium Difficile, Stool Culture , Ova/Parasite, Giardia/Crypto, Shiga Toxin Performed By: #### B IOGI #### [facility] [address] [place], [place] [id number] Astrovirus Not detected Normal NOT DETECTED [facility] Comment on above: Order Comment: GI Pa ninfa for: Clostridium Difficile, Stool Culture , Ova/Parasite, Giardia/Crypto, Shiga Toxin Performed By: #### B IOGI #### [facility] [address] [place], [place] [id number] Bacteria identified Cx Nom (Unsp spec) < BACTERIA > Normal [facility] Comment on above: Order Comment: GI Pa ninfa for: Clostridium Difficile, Stool Culture , Ova/Parasite, Giardia/Crypto, Shiga Toxin Performed By: #### B IOGI #### [place] [id number] C. difficile tox A/B Not detected Normal NOT DETECTED [facility] Comment on above: Order Comment: GI Pa ninfa for: Clostridium Difficile, Stool Culture , Ova/Parasite, Giardia/Crypto, Shiga Toxin Performed By: #### B IOGI #### [address] [place], [place] [address] Campylobacter Not detected Normal NOT DETECTED [facility] Comment on above: Order Comment: GI Pa ninfa for: Clostridium Difficile, Stool Culture , Ova/Parasite, Giardia/Crypto, Shiga Toxin Performed By: #### B IOGI #### [facility] [address] [place] [address] Cryptosporidium Not detected Normal NOT DETECTED [facility] Comment on above: Order Comment: GI Pa ninfa for: Clostridium Difficile, Stool Culture , Ova/Parasite, Giardia/Crypto, Shiga Toxin Performed By: #### B IOGI #### [facility] [address] [place] [address] Cyclospora Not detected Normal NOT DETECTED [facility] Comment on above: Order Comment: GI Pa ninfa for: Clostridium Difficile, Stool Culture , Ova/Parasite, Giardia/Crypto, Shiga Toxin Performed By: #### B IOGI #### [facility] [address] [place] [address] Diar E. coli/Shig < DIARRHEAGENIC E. C PATTI / SHIGELLA > Normal [facility] Comment on above: Order Comment: GI Pa ninfa for: Clostridium Difficile, Stool Culture , Ova/Parasite, Giardia/Crypto, Shiga Toxin Performed By: #### B IOGI #### [facility] [address] [place] [address] E. coli (EAEC) Not detected Normal NOT DETECTED [facility] Comment on above: Order Comment: GI Pa ninfa for: Clostridium Difficile, Stool Culture , Ova/Parasite, Giardia/Crypto, Shiga Toxin Performed By: #### B IOGI #### [facility] [address] [place], [place] [id number] E. coli (EPEC) Not detected Normal NOT DETECTED [facility] Comment on above: Order Comment: GI Pa ninfa for: Clostridium Difficile, Stool Culture , Ova/Parasite, Giardia/Crypto, Shiga Toxin Performed By: #### B IOGI #### [facility] [address] [place] [address] E. coli (ETEC) Not detected Normal NOT DETECTED [facility] Comment on above: Order Comment: GI Pa ninfa for: Clostridium Difficile, Stool Culture , Ova/Parasite, Giardia/Crypto, Shiga Toxin Performed By: #### B IOGI #### [facility] [address] [place] [address] E. coli (STEC) Not detected Normal NOT DETECTED [facility] Comment on above: Order Comment: GI Pa ninfa for: Clostridium Difficile, Stool Culture , Ova/Parasite, Giardia/Crypto, Shiga Toxin Performed By: #### B IOGI #### [facility] [address] [place] [address] E. coli O157 N/A Normal NOT DETECTED [facility] Comment on above: Order Comment: GI Pa ninfa for: Clostridium Difficile, Stool Culture , Ova/Parasite, Giardia/Crypto, Shiga Toxin Performed By: #### B IOGI #### [facility] [address] [place] [address] E. histolytica Not detected Normal NOT DETECTED [facility] Comment on above: Order Comment: GI Pa ninfa for: Clostridium Difficile, Stool Culture , Ova/Parasite, Giardia/Crypto, Shiga Toxin Performed By: #### B IOGI #### [facility] [address] [place] [address] GI Pathogens Sum ----- GASTROINTESTIN AL PATHOGENS SUMMARY ----- [facility] Comment on above: Order Comment: GI Pa ninfa for: Clostridium Difficile, Stool Culture , Ova/Parasite, Giardia/Crypto, Shiga Toxin Performed By: #### B IOGI #### [facility] [address] [place] [address] Giardia lamblia Not detected Normal NOT DETECTED [facility] Comment on above: Order Comment: GI Pa ninfa for: Clostridium Difficile, Stool Culture , Ova/Parasite, Giardia/Crypto, Shiga Toxin Performed By: #### B IOGI #### [facility] [address] [place] [address] Indiv PCR Results ----- INDIVIDUAL PCR RESULTS ----- [facility] Comment on above: Order Comment: GI Pa ninfa for: Clostridium Difficile, Stool Culture , Ova/Parasite, Giardia/Crypto, Shiga Toxin Performed By: #### B IOGI #### [facility] [address] [place] [address] Norovirus GI/GII Not detected Normal NOT DETECTED [facility] Comment on above: Order Comment: GI Pa ninfa for: Clostridium Difficile, Stool Culture , Ova/Parasite, Giardia/Crypto, Shiga Toxin Performed By: #### B IOGI #### [facility] [address] [place] [address] P. shigelloides Not detected Normal NOT DETECTED [facility] Comment on above: Order Comment: GI Pa ninfa for: Clostridium Difficile, Stool Culture , Ova/Parasite, Giardia/Crypto, Shiga Toxin Performed By: #### B IOGI #### [facility] [address] [place] [address] Parasites < PARASITES > Normal [facility] Comment on above: Order Comment: GI Pa ninfa for: Clostridium Difficile, Stool Culture , Ova/Parasite, Giardia/Crypto, Shiga Toxin Performed By: #### B IOGI #### [facility] [address] [place] [address] Pathogens Detected Detected Normal NOT DETECTED [facility] Comment on above: Order Comment: GI Pa ninfa for: Clostridium Difficile, Stool Culture , Ova/Parasite, Giardia/Crypto, Shiga Toxin Performed By: #### B IOGI #### [facility] [address] [place] [address] Pathogens Detected Normal NOT DETECTED [facility] Comment on above: Order Comment: GI Pa ninfa for: Clostridium Difficile, Stool Culture , Ova/Parasite, Giardia/Crypto, Shiga Toxin Performed By: #### B IOGI #### [facility] [address] [place] [address] Rotavirus A Not detected Normal NOT DETECTED [facility] Comment on above: Order Comment: GI Pa ninfa for: Clostridium Difficile, Stool Culture , Ova/Parasite, Giardia/Crypto, Shiga Toxin Performed By: #### B IOGI #### [facility] [address] [place] [address] Salmonella Not detected Normal NOT DETECTED [facility] Comment on above: Order Comment: GI Pa ninfa for: Clostridium Difficile, Stool Culture , Ova/Parasite, Giardia/Crypto, Shiga Toxin Performed By: #### B IOGI #### [facility] [address] [place] [address] Sapovirus Not detected Normal NOT DETECTED [facility] Comment on above: Order Comment: GI Pa ninfa for: Clostridium Difficile, Stool Culture , Ova/Parasite, Giardia/Crypto, Shiga Toxin Performed By: #### B IOGI #### [facility] [address] [place] [address] Shig/E. coli (EIEC) Not detected Normal NOT DETECTED [facility] Comment on above: Order Comment: GI Pa ninfa for: Clostridium Difficile, Stool Culture , Ova/Parasite, Giardia/Crypto, Shiga Toxin Performed By: #### B IOGI #### [facility] [address] [place] [address] Vibrio Not detected Normal NOT DETECTED [facility] Comment on above: Order Comment: GI Pa ninfa for: Clostridium Difficile, Stool Culture , Ova/Parasite, Giardia/Crypto, Shiga Toxin Performed By: #### B IOGI #### [facility] [address] [place] [address] Vibrio cholerae Not detected Normal NOT DETECTED [facility] Comment on above: Order Comment: GI Pa ninfa for: Clostridium Difficile, Stool Culture , Ova/Parasite, Giardia/Crypto, Shiga Toxin Performed By: #### B IOGI #### [facility] [address] [place], [place] [id number] Viruses < VIRUSES > Normal [facility] Comment on above: Order Comment: GI Pa ninfa for: Clostridium Difficile, Stool Culture , Ova/Parasite, Giardia/Crypto, Shiga Toxin Performed By: #### B IOGI #### [facility] [address] [place], [place] [id number] Yersinia Not detected Normal NOT DETECTED [facility] Comment on above: Order Comment: GI Pa ninfa for: Clostridium Difficile, Stool Culture , Ova/Parasite, Giardia/Crypto, Shiga Toxin Performed By: #### B IOGI #### [facility] [address] [place] [id number] Basic Metabolic Panelon 09-0 Anion gap [Moles/Vol] 10 mmol/L Normal 8-15 [facility] Comment on above: Performed By: #### C RPR #### [facility] [address] [place] [address]999 Calcium [Mass/Vol] 8.0 mg/dL Low 8.6-10.6 [facility] Comment on above: Performed By: #### C RPR #### [facility] [address] [place] [address] Chloride [Moles/Vol] 101 mmol/L Normal 98-107 [facility] Comment on above: Performed By: #### C RPR #### [facility] [address] [place] [address]12 CO2 [Moles/Vol] 25 mmol/L Normal 22-29 [facility] Comment on above: Performed By: #### C RPR #### [facility] [address] [place] [address] 85075 Creatinine [Mass/Vol] 0.7 mg/dL Normal 0.5-1.2 [facility] Comment on above: Performed By: #### C RPR #### [facility] [address] [place] [address]3640 eGFR -Amer >60 Normal >=60 [facility] Comment on above: Performed By: #### C RPR #### [facility] [address] [place] [address]176 GFR/1.73 sq M.predicted among non-blacks MDRD (S/P/Bld) [Vol rate/Area] mL/min/{1.73_m2} Normal >=60 [facility] Comment on above: Performed By: #### C RPR #### [facility] [address] [place] [address] 10510 Glucose [Mass/Vol] 72 mg/dL Low 74-109 [facility] Comment on above: Performed By: #### C RPR #### [facility] [address] [place] [address] 50025 Potassium [Moles/Vol] 4.0 mmol/L Normal 3.4-5.1 [facility] Comment on above: Performed By: #### C RPR #### [facility] [address] [place] [address] 62911 Sodium [Moles/Vol] 136 mmol/L Normal 136-145 [facility] Comment on above: Performed By: #### C RPR #### [facility] [address] [place] [address] 24994 Urea nitrogen [Mass/Vol] 11 mg/dL Normal 6-23 [facility] Comment on above: Performed By: #### C RPR #### [facility] [address] [place] [address] 72047 CBC with Diffon 10-12-2020 BA# 0.1 x(10)3/cumm Normal 0.0-0.1 [facility] Comment on above: Order Comment: Done during computer downtime. Performed By: #### C RPR #### [facility] [address] [place] [address] 45991 Basophils/100 WBC (Bld) 0.9 % Normal 0.0-1.0 [facility] Comment on above: Order Comment: Done during computer downtime. Performed By: #### C RPR #### [facility] [address] [place] [address] 32224 EO# 0.1 x(10)3/cumm Normal 0.0-0.4 [facility] Comment on above: Order Comment: Done during computer downtime. Performed By: #### C RPR #### [facility] [address] [place] [address] 51682 Eosinophils/100 WBC (Bld) 0.5 % Normal 0.0-6.1 [facility] Comment on above: Order Comment: Done during computer downtime. Performed By: #### C RPR #### [address] [place], [place] [address] Erythrocyte distribution width (RBC) [Ratio] 14.7 % Normal 11.1-15.3 [facility] Comment on above: Order Comment: Done during computer downtime. Performed By: #### C RPR #### [facility] [address] [place], [place] [address] Hematocrit (Bld) [Volume fraction] 26.1 % Low 34.6-45.0 [facility] Comment on above: Order Comment: Done during computer downtime. Performed By: #### C RPR #### [place] [id number] Hemoglobin (Bld) [Mass/Vol] 8.8 g/dL Low 11.5-15.5 [facility] Comment on above: Order Comment: Done during computer downtime. Performed By: #### C RPR #### [place] [id number] LY# 3.4 x(10)3/cumm High 0.8-2.9 [facility] Comment on above: Order Comment: Done during computer downtime. Performed By: #### C RPR #### [place] [id number] Lymphocytes/100 WBC (Bld) 23.3 % Normal 12.2-42.6 [facility] Comment on above: Order Comment: Done during computer downtime. Performed By: #### C RPR #### [place] [id number] MCH (RBC) [Entitic mass] 30.1 pg Normal 27.2-33.6 [facility] Comment on above: Order Comment: Done during computer downtime. Performed By: #### C RPR #### [place] [id number] MCHC (RBC) [Mass/Vol] 33.7 g/dL Normal 32.9-35.3 [facility] Comment on above: Order Comment: Done during computer downtime. Performed By: #### C RPR #### [address], [place] [address] MCV (RBC) [Entitic vol] 89.4 fL Normal 81.3-96.7 [facility] Comment on above: Order Comment: Done during computer downtime. Performed By: #### C RPR #### [facility] [address] [place] [address]289 MO# 0.9 x(10)3/cumm High 0.2-0.8 [facility] Comment on above: Order Comment: Done during computer downtime. Performed By: #### C RPR #### [facility] [address] [place] [address] 51371 Monocytes/100 WBC (Bld) 6.5 % Normal 3.3-11.6 [facility] Comment on above: Order Comment: Done during computer downtime. Performed By: #### C RPR #### [facility] [address] [place] [address] 42066 NE# 9.9 x(10)3/cumm High 1.3-7.4 [facility] Comment on above: Order Comment: Done during computer downtime. Performed By: #### C RPR #### [facility] [address] [place] [address] 49177 Neutrophils/100 WBC (Bld) 68.8 % Normal 44.9-78.8 [facility] Comment on above: Order Comment: Done during computer downtime. Performed By: #### C RPR #### [facility] [address] [place] [address] 86150 Platelet mean volume (Bld) [Entitic vol] 7.6 fL Normal 6.4-10.0 [facility] Comment on above: Order Comment: Done during computer downtime. Performed By: #### C RPR #### [facility] [address] [place] [address] 03959 PLT 500 x(10)3/cumm High 138-367 [facility] Comment on above: Order Comment: Done during computer downtime. Performed By: #### C RPR #### [facility] [address] [place] [address] 78732 Plt Morph [facility] Comment on above: Order Comment: Done during computer downtime. Performed By: #### C RPR #### [facility] [address] [place] [address] 89187 RBC 2.92 X(10)6/cumm Low 3.90-5.10 [facility] Comment on above: Order Comment: Done during computer downtime. Performed By: #### C RPR #### [facility] [address] [place], [place] [address] RBC Morph cont [facility] Comment on above: Order Comment: Done during computer downtime. Performed By: #### C RPR #### [facility] [address] [place], [place] [address] RBC morphology finding Nom (Bld) [facility] Comment on above: Order Comment: Done during computer downtime. Performed By: #### C RPR #### [facility] [address] [place], [place] [address] WBC 14.4 x(10)3/cumm High 3.6-10.3 [facility] Comment on above: Order Comment: Done during computer downtime. Performed By: #### C RPR #### [facility] [address] [place] [address] WBC Morph [facility] Comment on above: Order Comment: Done during computer downtime. Performed By: #### C RPR #### [facility] [address] [place], [place] [address] XR Chest 1 view-Mobileon XR Chest 1 [...] by: ARTIS GODINEZ MD Date: 10/12/2020 14:32 [facility] XR Scoliosis Studyon 021 XR Scoliosis [...] by: TEAGAN PABON MD Date: 10/12/2020 18:10 [facility] Crossmatch 2 units PRBCon Ab Screen Negative Normal NEGATIVE [facility] Comment on above: Order Comment: MARCELO Bacon ninfa for: Clostridium Difficile, Stool Culture , Ova/Parasite, Giardia/Crypto, Shiga Toxin Performed By: #### B IOGI #### [facility] [address] [place] [address] Patient ABO A Normal [facility] Comment on above: Order Comment: MARCELO Bacon ninfa for: Clostridium Difficile, Stool Culture , Ova/Parasite, Giardia/Crypto, Shiga Toxin Performed By: #### B IOGI #### [facility] [address] [place] [address] Patient Rh Positive Abnormal [facility] Comment on above: Order Comment: GI Pa ninfa for: Clostridium Difficile, Stool Culture , Ova/Parasite, Giardia/Crypto, Shiga Toxin Performed By: #### B IOGI #### [facility] [address] [place] [address] date/time 10/09/2020 06:00 [facility] Comment on above: Order Comment: GI Pa ninfa for: Clostridium Difficile, Stool Culture , Ova/Parasite, Giardia/Crypto, Shiga Toxin Performed By: #### B IOGI #### [facility] [address] [place] [address] Unit # [id number] [facility] Comment on above: Order Comment: GI Pa ninfa for: Clostridium Difficile, Stool Culture , Ova/Parasite, Giardia/Crypto, Shiga Toxin Performed By: #### B IOGI #### [facility] [address] [place] [address] Unit #2 [id number] [facility] Comment on above: Order Comment: GI Pa ninfa for: Clostridium Difficile, Stool Culture , Ova/Parasite, Giardia/Crypto, Shiga Toxin Performed By: #### B IOGI #### [facility] [address] [place] [address] Unit #2 ABO/Rh Positive Invalid Interpretation [facility] Comment on above: Order Comment: GI Pa ninfa for: Clostridium Difficile, Stool Culture , Ova/Parasite, Giardia/Crypto, Shiga Toxin Performed By: #### B IOGI #### [facility] [address] [place] [address] Unit ABO/Rh Positive Invalid Interpretation [facility] Comment on above: Order Comment: GI Pa ninfa for: Clostridium Difficile, Stool Culture , Ova/Parasite, Giardia/Crypto, Shiga Toxin Performed By: #### B IOGI #### [place] [address] Unit Exp 11/09/2020 [facility] Comment on above: Order Comment: GI Pa ninfa for: Clostridium Difficile, Stool Culture , Ova/Parasite, Giardia/Crypto, Shiga Toxin Performed By: #### B IOGI #### [place] [address] XM 2 Compat Compatible Tullos COMPATIBLE [facility] Comment on above: Order Comment: GI Pa ninfa for: Clostridium Difficile, Stool Culture , Ova/Parasite, Giardia/Crypto, Shiga Toxin Performed By: #### B IOGI #### [place] [address] XM Compat Compatible [facility] Comment on above: Order Comment: GI Pa ninfa for: Clostridium Difficile, Stool Culture , Ova/Parasite, Giardia/Crypto, Shiga Toxin Performed By: #### B IOGI #### [place] [address] Operative Reporton 1 Operative Report [place] [address] RECORD OF PROCEDURE PATIENT NAME: MARY VALIENTE DATE OF : 1960 MED REC #: [id number] PT LOCATION: 2W PT TYPE: IP AGE: 59 SEX: F ADMISSION DATE: 10/04/2020 DATE OF SERVICE: 10/09/2020 SURGEON: Gaviota London MD 1ST DIRECTOR SALES [employer] MARKETING: Huyen Morgan CNP 2ND DIRECTOR SALES AND MARKETING: Ulysses Morris DO ANESTHESIA: General endotracheal. ESTIMATED [...] OF PROCEDURE: T2 to T5 instrumentation utilizing [employer] instrumentation; T6 to T9 revision with [...] established. Patient's head was placed in Mccann billet header. Patient was placed prone on Claudio table, [...] facet arthrosis of right T6 pedicle screw. Duarte and T6, T7, T8 pedicle screws were removed bilaterally. Copious irrigation was used. End-to-end connectors were placed on existing titanium rods right above the T9 level. At that point we proceeded with new instrumentation. Utilizing high-speed Mid[employer] Shawn drill at left T2 level, [place] pilot hole was created. Left T2 pedicle was transgressed with pedicle finder. Integrity of pedicle was verified. A 4.5 x 40-mm pedicle screw by [employer] was inserted followed by same-sized pedicle screw on the right side. Patient's somatosensory and motor-evoked potentials remained stable. At left T3 level, again a high-speed [employer] Shawn drill was used for ship harbor pilot hole. Pedicle was transgressed with pedicle finder. [...] point temporary stabilization (more content not included)... [facility] Culture Wound Aerobic w/ Gra m [...] <=0.12 F Trimethoprim/Sulfamethox azole S <=10 F [facility] Comment on above: Order Comment: MILLIE p erformed at additional charge when indicated. Back abscess Performed By: #### C XWND ####[facility] [address] [place] [address] XR Abdomen single AP view-KU Bon 10-06-2020 [...] JAYDA GAYTAN MD Date: 10/06/2020 14:13 Normal [facility] C-Reactive Proteinon 021 CRP [Mass/Vol] 238.1 mg/L High <=9.9 [facility] Comment on above: Performed By: #### C RPR #### [facility] [address] [place] [address] XR Abdomen single AP view-KU Bon 10-05-2020 [...] KVNG HENRIQUEZ MD Date: 10/05/2020 10:52 Normal [facility] CT Thoracic Spine w contrast on 10-04-2020 [...] by: MARQUISE BARAJAS MD Date: 10/04/2020 14:36 [facility] Comment on above: Order Comment: CONTR [...] by: MARQUISE BARAJAS MD Date: 10/04/2020 14:38 [facility] Comment on above: Order Comment: Abdom [...] by: MARQUISE BARAJAS MD Date: 08/20/2020 15:25 [facility] Donell 08-15-2020 EMERGENCY PHYSICIAN REPORT This is a preliminary report only, as the practitioner review and authentication has not occurred. [facility] ER PHYSICIAN ASSESSMENT DEMOGRAPHICS [employer] Patient: MARY VALIENTE Sex: F : 1960 Age: 59 yr Account No: [id number] Registration Date: 15:11 08/15/2020 Address: [address] [place] [address] Address: [place] [address] REGISTRATION ED Number: [id number] Marital Status: M Financial Class: [facility] Priority: 3 - Urgent Complaint: Back Pain, Non Traumatic Arrival Date: 08/15/2020 15:11 Triage Date: 08/15/2020 15:12 Mode of Arrival: *Privately Owned Vehicle WC: N Language: American Transport: Ambulatory/Walk In BED C33 In: 08/15/2020 19:58:23 08/15/2020 19:58:23 PJNoemy C33 (Removed From) Out: 08/15/2020 19:59:53 08/15/2020 19:59:53 P[facility] PATIENT NAME: MARY VALIENTE [address] [facility] [address] Fan MEDICAL REC #: [id number] [place] [address] EMERGENCY DEPARTMENT REPORT EMERGENCY DEPARTMENT PHYSICIAN PROVIDERS [...] thoughts of self harm. 08/15/2020 15:36 KMF [facility] PATIENT NAME: MARY VALIENTE [address] [facility] REC #: [id number] [place] [address] EMERGENCY DEPARTMENT REPORT EMERGENCY DEPARTMENT PHYSICIAN Social [...] VS-Notes Time: 08/15/2020 15:27 map 77 08/15/2020 [facility] PATIENT NAME: MARY VALIENTE [address] [facility] [address] Fan MEDICAL REC #: [id number] [place] [address] EMERGENCY DEPARTMENT REPORT EMERGENCY DEPARTMENT PHYSICIAN 15:33 [...] KMF [place] VELAJ RANDEE ZHANNA [facility]IC TRKA [facility] PATIENT NAME: MARY VALIENTE [facility] [address] Fan MEDICAL REC #: [id number] [facility] (more content not included)... Normal [facility] [place] .Auto Diffon 08-14-2020 Basophil, Absolute 0.00 10 3/mcL Normal 0.00-0.27 [facility] ([place]) Comment on above: Performed By: #### C BC, BMP, GFR, MORPH, ADIFF, ANEU #### [address] [address] Basophils/100 WBC (Bld) 0.3 % Normal 0.0-2.5 [facility] ([place]) Comment on above: Performed By: #### C BC, BMP, GFR, MORPH, ADIFF, ANEU #### [address] [address] Eosinophil, Absolute 0.10 10 3/mcL Normal 0.00-0.65 A [facility] ([place]) Comment on above: Performed By: #### C BC, BMP, GFR, MORPH, ADIFF, ANEU #### [address] [address] Eosinophils/100 WBC (Bld) 0.8 % Normal 0.0-6.0 [facility] ([place]) Comment on above: Performed By: #### C BC, BMP, GFR, MORPH, ADIFF, ANEU #### [address] [address] Lymphocyte, Absolute 1.20 10 3/mcL Normal 0.90-4.32 A [facility] ([place]) Comment on above: Performed By: #### C BC, BMP, GFR, MORPH, ADIFF, ANEU #### [address] [address] Lymphocytes/100 WBC (Bld) 10.5 % Low 20.0-40.0 [facility] ([place]) Comment on above: Performed By: #### C BC, BMP, GFR, MORPH, ADIFF, ANEU #### [address] [address] Monocyte, Absolute 1.00 10 3/mcL Normal 0.09-1.40 [facility] ([place]) Comment on above: Performed By: #### C BC, BMP, GFR, MORPH, ADIFF, ANEU #### [address] [address] Monocytes/100 WBC (Bld) 8.8 % Normal 2.0-13.0 [facility] ([place]) Comment on above: Performed By: #### C BC, BMP, GFR, MORPH, ADIFF, ANEU #### [address] [address] Neutrophils/100 WBC (Bld) 79.6 % High 50.0-75.0 [facility] ([place]) Comment on above: Performed By: #### C BC, BMP, GFR, MORPH, ADIFF, ANEU #### [address] [address] .GFRon 08-14-2020 GFR Non- >60 Normal [facility] ([place]) Comment on above: Result Comment: GFR Population [...] BC, BMP, GFR, MORPH, ADIFF, ANEU #### [address] [address] GFR >60 Normal [facility] ([place]) Comment on above: Result Comment: GFR Population [...] BC, BMP, GFR, MORPH, ADIFF, ANEU #### [address] [address] .Morphon 08-14-2020 Platelet Estimate Increased Normal [facility] ([place]) Comment on above: Performed By: #### C BC, BMP, GFR, MORPH, ADIFF, ANEU #### [address] [address] RBC morphology finding Nom (Bld) Normal Normal [facility] ([place]) Comment on above: Performed By: #### C BC, BMP, GFR, MORPH, ADIFF, ANEU #### [address] [address] .NEUABSon 08-14-2020 Neutrophil, Absolute 9.50 10 3/mcL High 2.25-8.10 A [facility] ([place]) Comment on above: Performed By: #### C BC, BMP, GFR, MORPH, ADIFF, ANEU #### [place] [id number] BMPon 08-14-2020 Calcium [Mass/Vol] 8.4 mg/dL Low 8.7-10.4 [facility] ([place]) Comment on above: Result Comment: No te - New Reference Range in effect 19 Performed By: #### C BC, BMP, GFR, MORPH, ADIFF, ANEU #### [place] [address] Chloride [Moles/Vol] 100 mmol/L Normal 98-110 [facility] ([place]) Comment on above: Performed By: #### C BC, BMP, GFR, MORPH, ADIFF, ANEU #### [place] [address] CO2 [Moles/Vol] 24 mmol/L Normal 22-32 [facility] ([place]) Comment on above: Performed By: #### C BC, BMP, GFR, MORPH, ADIFF, ANEU #### [place] [address] Creatinine [Mass/Vol] 0.43 mg/dL Low 0.50-1.20 [facility] ([place]) Comment on above: Performed By: #### C BC, BMP, GFR, MORPH, ADIFF, ANEU #### [place] [address] Electrolyte Balance 7.0 mEq/L Normal 4.0-15.0 [facility] ([place]) Comment on above: Performed By: #### C BC, BMP, GFR, MORPH, ADIFF, ANEU #### [place] [id number] Glucose [Mass/Vol] 112 mg/dL Normal 82-115 [facility] ([place]) Comment on above: Performed By: #### C BC, BMP, GFR, MORPH, ADIFF, ANEU #### [address] [address] Potassium [Moles/Vol] 4.0 mmol/L Normal 3.5-5.0 [facility] ([place]) Comment on above: Performed By: #### C BC, BMP, GFR, MORPH, ADIFF, ANEU #### [address] [address] Sodium [Moles/Vol] 131 mmol/L Low 136-145 [facility] ([place]) Comment on above: Performed By: #### C BC, BMP, GFR, MORPH, ADIFF, ANEU #### [place] [id number] Urea nitrogen [Mass/Vol] mg/dL Low 8.0-22.0 [facility] ([place]) Comment on above: Performed By: #### C BC, BMP, GFR, MORPH, ADIFF, ANEU #### [place] [id number] Urea nitrogen/Creatinine [Mass ratio] mg/mg Normal 10.0-22.0 [facility] ([place]) Comment on above: Performed By: #### C BC, BMP, GFR, MORPH, ADIFF, ANEU #### [address] [address] CBCon 08-14-2020 Erythrocyte distribution width (RBC) [Ratio] 13.7 % Normal 11.5-15.5 [facility] ([place]) Comment on above: Performed By: #### C BC, BMP, GFR, MORPH, ADIFF, ANEU #### [address] [address] Hematocrit (Bld) [Volume fraction] 28.6 % Low 34.0-46.0 [facility] ([place]) Comment on above: Performed By: #### C BC, BMP, GFR, MORPH, ADIFF, ANEU #### [place] [id number] Hgb 9.7 G/dL Low 12.0-16.0 [facility] ([place] Comment on above: Performed By: #### C BC, BMP, GFR, MORPH, ADIFF, ANEU #### [place] [address] MCH (RBC) [Entitic mass] 31.2 pg Normal 27.0-33.0 [facility] ([place] Comment on above: Performed By: #### C BC, BMP, GFR, MORPH, ADIFF, ANEU #### [place] [address] MCHC 33.7 G/dL Normal 32.0-36.0 [facility] ([place] Comment on above: Performed By: #### C BC, BMP, GFR, MORPH, ADIFF, ANEU #### [place] [address] MCV (RBC) [Entitic vol] 92.4 fL Normal 80.0-99.0 [facility] ([place] Comment on above: Performed By: #### C BC, BMP, GFR, MORPH, ADIFF, ANEU #### [place] [address] Platelet 891 10 3/mcL High 150-450 [facility] ([place] Comment on above: Performed By: #### C BC, BMP, GFR, MORPH, ADIFF, ANEU #### [place] [address] Platelet mean volume (Bld) [Entitic vol] 6.9 fL Normal 6.6-10.5 [facility] ([place] Comment on above: Performed By: #### C BC, BMP, GFR, MORPH, ADIFF, ANEU #### [place] [address] RBC 3.09 10 6/mcL Low 4.10-5.30 [facility] ([place] Comment on above: Performed By: #### C BC, BMP, GFR, MORPH, ADIFF, ANEU #### [place] [address] WBC 11.90 10 3/mcL High 4.50-10.80 [facility] ([place]) Comment on above: Performed By: #### C BC, BMP, GFR, MORPH, ADIFF, ANEU #### [address] [address] .Auto Diffon 08-13-2020 Basophil, Absolute 0.10 10 3/mcL Normal 0.00-0.27 [facility] ([place]) Comment on above: Performed By: #### C BC, BMP, GFR, MORPH, ADIFF, ANEU #### [address] [address] Basophils/100 WBC (Bld) 0.7 % Normal 0.0-2.5 [facility] ([place]) Comment on above: Performed By: #### C BC, BMP, GFR, MORPH, ADIFF, ANEU #### [address] [address] Eosinophil, Absolute 0.10 10 3/mcL Normal 0.00-0.65 A [facility] ([place]) Comment on above: Performed By: #### C BC, BMP, GFR, MORPH, ADIFF, ANEU #### [address] [address] Eosinophils/100 WBC (Bld) 1.2 % Normal 0.0-6.0 [facility] ([place] Comment on above: Performed By: #### C BC, BMP, GFR, MORPH, ADIFF, ANEU #### [address] [address] Lymphocyte, Absolute 1.60 10 3/mcL Normal 0.90-4.32 [facility] ([place]) Comment on above: Performed By: #### C BC, BMP, GFR, MORPH, ADIFF, ANEU #### [address] [address] Lymphocytes/100 WBC (Bld) 14.4 % Low 20.0-40.0 [facility] ([place] Comment on above: Performed By: #### C BC, BMP, GFR, MORPH, ADIFF, ANEU #### [address] [address] Monocyte, Absolute 1.00 10 3/mcL Normal 0.09-1.40 [facility] ([place]) Comment on above: Performed By: #### C BC, BMP, GFR, MORPH, ADIFF, ANEU #### [address] [address] Monocytes/100 WBC (Bld) 8.9 % Normal 2.0-13.0 [facility] ([place]) Comment on above: Performed By: #### C BC, BMP, GFR, MORPH, ADIFF, ANEU #### [address] [address] Neutrophils/100 WBC (Bld) 74.8 % Normal 50.0-75.0 [facility] ([place]) Comment on above: Performed By: #### C BC, BMP, GFR, MORPH, ADIFF, ANEU #### [address] [address] .GFRon 08-13-2020 GFR >60 Normal [facility] ([place]) Comment on above: Result Comment: GFR [...] BC, BMP, GFR, MORPH, ADIFF, ANEU #### [address] [address] GFR Non- >60 Normal [facility] ([place]) Comment on above: Result Comment: GFR [...] BC, BMP, GFR, MORPH, ADIFF, ANEU #### [place] [address] .Morphon 08-13-2020 Platelet Estimate Grt Increased Normal [facility] ([place]) Comment on above: Performed By: #### C BC, BMP, GFR, MORPH, ADIFF, ANEU #### [place] [address] RBC morphology finding Nom (Bld) Normal Normal [facility] ([place]) Comment on above: Performed By: #### C BC, BMP, GFR, MORPH, ADIFF, ANEU #### [place] [address] .NEUABSon 08-13-2020 Neutrophil, Absolute 8.40 10 3/mcL High 2.25-8.10 A [facility] ([place]) Comment on above: Performed By: #### C BC, BMP, GFR, MORPH, ADIFF, ANEU #### [address] 08-13-2020 BUN/Creatinine Ratio 8.8 ratio Low 10.0-22.0 [facility] ([place]) Comment on above: Performed By: #### C BC, BMP, GFR, MORPH, ADIFF, ANEU #### [place] [address] Calcium [Mass/Vol] 9.0 mg/dL Normal 8.4-10.1 [facility] ([place]) Comment on above: Result Comment: No te - New Reference Range in effect 19 Performed By: #### C BC, BMP, GFR, MORPH, ADIFF, ANEU #### [place] [address] Chloride [Moles/Vol] 98 mmol/L Normal 98-110 [facility] ([place]) Comment on above: Performed By: #### C BC, BMP, GFR, MORPH, ADIFF, ANEU #### [address] [address] CO2 [Moles/Vol] 26 mmol/L Normal 22-32 [facility] ([place] Comment on above: Performed By: #### C BC, BMP, GFR, MORPH, ADIFF, ANEU #### [address] [address] Creatinine [Mass/Vol] 0.57 mg/dL Normal 0.50-1.20 [facility] ([place]) Comment on above: Performed By: #### C BC, BMP, GFR, MORPH, ADIFF, ANEU #### [address] [address] Electrolyte Balance 8.0 mEq/L Normal 4.0-15.0 [facility] ([place]) Comment on above: Performed By: #### C BC, BMP, GFR, MORPH, ADIFF, ANEU #### [address] [address] Glucose [Mass/Vol] 100 mg/dL Normal 82-115 [facility] ([place]) Comment on above: Performed By: #### C BC, BMP, GFR, MORPH, ADIFF, ANEU #### [address] [address] Potassium [Moles/Vol] 3.9 mmol/L Normal 3.5-5.0 [facility] ([place]) Comment on above: Result Comment: Spec imen slightly hemolyzed Performed By: #### C BC, BMP, GFR, MORPH, ADIFF, ANEU #### [address] [address] Sodium [Moles/Vol] 132 mmol/L Low 136-145 [facility] ([place]) Comment on above: Performed By: #### C BC, BMP, GFR, MORPH, ADIFF, ANEU #### [address] [address] Urea nitrogen [Mass/Vol] 5.0 mg/dL Low 8.0-22.0 [facility] ([place]) Comment on above: Performed By: #### C BC, BMP, GFR, MORPH, ADIFF, ANEU #### [address] [address] CBCon 08-13-2020 Erythrocyte distribution width (RBC) [Ratio] 13.6 % Normal 11.5-15.5 [facility] ([place] Comment on above: Performed By: #### C BC, BMP, GFR, MORPH, ADIFF, ANEU #### [place] [address] Hematocrit (Bld) [Volume fraction] 34.3 % Normal 34.0-46.0 [facility] ([place] Comment on above: Performed By: #### C BC, BMP, GFR, MORPH, ADIFF, ANEU #### [place] [address] Hgb 11.5 G/dL Low 12.0-16.0 [facility] ([place] Comment on above: Performed By: #### C BC, BMP, GFR, MORPH, ADIFF, ANEU #### [place] [address] MCH (RBC) [Entitic mass] 30.9 pg Normal 27.0-33.0 [facility] ([place] Comment on above: Performed By: #### C BC, BMP, GFR, MORPH, ADIFF, ANEU #### [place] [address] MCHC 33.6 G/dL Normal 32.0-36.0 [facility] ([place] Comment on above: Performed By: #### C BC, BMP, GFR, MORPH, ADIFF, ANEU #### [place] [address] MCV (RBC) [Entitic vol] 92.0 fL Normal 80.0-99.0 [facility] ([place] Comment on above: Performed By: #### C BC, BMP, GFR, MORPH, ADIFF, ANEU #### [place] [address] Platelet 972 10 3/mcL High 150-450 [facility] ([place]) Comment on above: Performed By: #### C BC, BMP, GFR, MORPH, ADIFF, ANEU #### [facility] [address] [place] [address] Platelet mean volume (Bld) [Entitic vol] 6.6 fL Normal 6.6-10.5 [facility] ([place]) Comment on above: Performed By: #### C BC, BMP, GFR, MORPH, ADIFF, ANEU #### [facility] [address] [place] [address] RBC 3.73 10 6/mcL Low 4.10-5.30 [facility] ([place]) Comment on above: Performed By: #### C BC, BMP, GFR, MORPH, ADIFF, ANEU #### [place] [id number] [address] [place] [address] WBC 11.20 10 3/mcL High 4.50-10.80 [facility] ([place]) Comment on above: Performed By: #### C BC, BMP, GFR, MORPH, ADIFF, ANEU #### [address] [address] XR ABDOMEN SERIES W/CHEST 1 VIEWon 08-13-2020 [...] 5:33:39 AM Ordering Provider: LIBRA ROUSSEAU Minoo [facility] ([place] Abdomen / Pelvis w IV onl [...] JOSHUA BROWN II, MD Date: 08/08/2020 08:07 [facility] XR Spine Cervical 2 or 3 [...] JOSHUA BROWN II, MD Date: 08/08/2020 07:47 [facility] XR Spine Lumbar Sacral 2 -3 [...] JOSHUA BROWN II, MD Date: 08/08/2020 07:51 [facility] XR Spine Thoracic 3 viewson 08-08-2020 [...] JOSHUA BROWN II, MD Date: 08/08/2020 07:45 [facility] XR Scoliosis Studyon XR Scoliosis Study [...] MIKE JEFF MD Date: 08/06/2020 18:35 Normal [facility] Comment on above: Order Comment: Scoli osis films this morning Comprehensive Metabolic Pane bebe 08-05-2020 Albumin [Mass/Vol] 2.3 g/dL Low 3.5-5.2 [facility] Comment on above: Performed By: #### C RABIA PHOS #### [facility] [address] [place] [address] ALP [Catalytic activity/Vol] 132 U/L High 35-129 [facility] Comment on above: Performed By: #### C RABIA PHOS #### [facility] [address] [place] [address] ALT [Catalytic activity/Vol] 27 U/L Normal <=41 [facility] Comment on above: Performed By: #### C RABIA PHOS #### [facility] [address] [place] [address] Anion gap [Moles/Vol] 9 mmol/L Normal 8-15 [facility] Comment on above: Performed By: #### C RABIA PHOS #### [facility] [address] [place] [address] AST [Catalytic activity/Vol] 44 U/L High <=40 [facility] Comment on above: Performed By: #### C RABIA PHOS #### [facility] [address] [place] [address] Bili, Total 0.3 mg/dL Normal <=1.2 [facility] Comment on above: Performed By: #### C RABIA, PHOS #### [facility] [address] [place] [address] Calcium [Mass/Vol] 7.8 mg/dL Low 8.6-10.6 [facility] Comment on above: Performed By: #### C MP, PHOS #### [facility] [address] [place] [address] Chloride [Moles/Vol] 97 mmol/L Low 98-107 [facility] Comment on above: Performed By: #### C MP, PHOS #### [facility] [address] [place] [address] CO2 [Moles/Vol] 26 mmol/L Normal 22-29 [facility] Comment on above: Performed By: #### C MP, PHOS #### [facility] [address] [place] [address] Creatinine [Mass/Vol] 0.5 mg/dL Normal 0.5-1.2 [facility] Comment on above: Performed By: #### C RABIA, PHOS #### [facility] [address] [place] [address] eGFR -Amer >=60 Normal >=60 [facility] Comment on above: Performed By: #### C RABIA, PHOS #### [facility] [address] [place] [address] GFR/1.73 sq M.predicted among non-blacks MDRD (S/P/Bld) [Vol rate/Area] mL/min/{1.73_m2} Normal >=60 [facility] Comment on above: Performed By: #### C RABIA, PHOS #### [facility] [address] [place] [address] Glucose [Mass/Vol] 98 mg/dL Normal 74-109 [facility] Comment on above: Performed By: #### C MP, PHOS #### [facility] [address] [place] [address] Potassium [Moles/Vol] 3.6 mmol/L Normal 3.4-5.1 [facility] Comment on above: Performed By: #### C RABIA, PHOS #### [facility] [address] [place] [address] 52054 Prot Total 4.9 g/dL Low 6.4-8.3 [facility] Comment on above: Performed By: #### C WILIAN CAMARILLO #### [facility] [address] [place] [address] 64349 Sodium [Moles/Vol] 132 mmol/L Low 136-145 [facility] Comment on above: Performed By: #### C RABIA PHOS #### [facility] [address] [place] [address] 19624 Urea nitrogen [Mass/Vol] 8 mg/dL Normal 6- [facility] Comment on above: Performed By: #### C WILIAN CAMARILLO #### [facility] [address] [place] [address] 14384 Phosphorus - Inorganicon Phosphate [Mass/Vol] 2.5 mg/dL Normal 2.5-4.5 [facility] Comment on above: Performed By: #### C RABIA PHOS #### [facility] [address] [place] [address] 42102 Basic Metabolic Panelon 07-11 Anion gap [Moles/Vol] 5 mmol/L Low 8-15 [facility] Comment on above: Performed By: #### B MP #### [facility] [address] [place] [address] 50654 Calcium [Mass/Vol] 7.5 mg/dL Low 8.6-10.6 [facility] Comment on above: Performed By: #### B MP #### [facility] [address] [place] [address] 52674 Chloride [Moles/Vol] 101 mmol/L Normal 98-107 [facility] Comment on above: Performed By: #### B MP #### [facility] [address] [place] [address] 31463 CO2 [Moles/Vol] 26 mmol/L Normal 22-29 [facility] Comment on above: Performed By: #### B MP #### [facility] [address] [place] [address] 01756 Creatinine [Mass/Vol] 0.5 mg/dL Normal 0.5-1.2 [facility] Comment on above: Performed By: #### B MP #### [facility] [address] [place] [address] 02940 eGFR -Amer >=60 Normal >=60 [facility] Comment on above: Performed By: #### B MP #### [facility] [address] [place] [address] 98744 GFR/1.73 sq M.predicted among non-blacks MDRD (S/P/Bld) [Vol rate/Area] mL/min/{1.73_m2} Normal >=60 [facility] Comment on above: Performed By: #### B MP #### [facility] [address] [place] [address] 44069 Glucose [Mass/Vol] 108 mg/dL Normal 74-109 [facility] Comment on above: Performed By: #### B MP #### [facility] [address] [place] [address] 25165 Potassium [Moles/Vol] 4.4 mmol/L Normal 3.4-5.1 [facility] Comment on above: Performed By: #### B MP #### [facility] [address] [place] [address] 24374 Sodium [Moles/Vol] 132 mmol/L Low 136-145 [facility] Comment on above: Performed By: #### B MP #### [facility] [address] [place] [address] 29595 Urea nitrogen [Mass/Vol] 8 mg/dL Normal 6-23 [facility] Comment on above: Performed By: #### B MP #### [facility] [address] [place] [address] 82338 CBC with Diffon 08-03-2020 BA# 0.1 x(10)3/cumm Normal 0.0-0.1 [facility] Comment on above: Performed By: #### C RPR #### [facility] [address] [place] [address] 43802 Basophils/100 WBC (Bld) 0.4 % Normal 0.0-1.0 [facility] Comment on above: Performed By: #### C RPR #### [facility] [address] [place] [address] 12938 EO# 0.0 x(10)3/cumm Normal 0.0-0.4 [facility] Comment on above: Performed By: #### C RPR #### [facility] [address] [place] [address] 58026 Eosinophils/100 WBC (Bld) 0.1 % Normal 0.0-6.1 [facility] Comment on above: Performed By: #### C RPR #### [facility] [address] [place] [address] 75226 Erythrocyte distribution width (RBC) [Ratio] 12.3 % Normal 11.1-15.3 [facility] Comment on above: Performed By: #### C RPR #### [facility] [address] [place] [address] 68017 Hematocrit (Bld) [Volume fraction] 19.2 % Low 34.6-45.0 [facility] Comment on above: Performed By: #### C RPR #### [facility] [address] [place] [address] 68022 Hemoglobin (Bld) [Mass/Vol] 6.7 g/dL Low 11.5-15.5 [facility] Comment on above: Performed By: #### C RPR #### [facility] [address] [place] [address] 56233 LY# 1.7 x(10)3/cumm Normal 0.8-2.9 [facility] Comment on above: Performed By: #### C RPR #### [facility] [address] [place] [address] 22187 Lymphocytes/100 WBC (Bld) 13.0 % Normal 12.2-42.6 [facility] Comment on above: Performed By: #### C RPR #### [facility] [address] [place] [address] 24739 MCH (RBC) [Entitic mass] 33.0 pg Normal 27.2-33.6 [facility] Comment on above: Performed By: #### C RPR #### [facility] [address] [place] [address] 47370 MCHC (RBC) [Mass/Vol] 35.1 g/dL Normal 32.9-35.3 [facility] Comment on above: Performed By: #### C RPR #### [facility] [address] [place] [address] 33744 MCV (RBC) [Entitic vol] 94.0 fL Normal 81.3-96.7 [facility] Comment on above: Performed By: #### C RPR #### [facility] [address] [place] [address] 04844 MO# 1.1 x(10)3/cumm High 0.2-0.8 [facility] Comment on above: Performed By: #### C RPR #### [facility] [address] [place] [address] 83919 Monocytes/100 WBC (Bld) 8.4 % Normal 3.3-11.6 [facility] Comment on above: Performed By: #### C RPR #### [facility] [address] [place] [address] 32217 NE# 10.4 x(10)3/cumm High 1.3-7.4 [facility] Comment on above: Performed By: #### C RPR #### [facility] [address] [place] [address] 91782 Neutrophils/100 WBC (Bld) 78.1 % Normal 44.9-78.8 [facility] Comment on above: Performed By: #### C RPR #### [facility] [address] [place] [address] 65599 Platelet mean volume (Bld) [Entitic vol] 7.3 fL Normal 6.4-10.0 [facility] Comment on above: Performed By: #### C RPR #### [facility] [address] [place] [address] 73173 PLT 218 x(10)3/cumm Normal 138-367 [facility] Comment on above: Performed By: #### C RPR #### [facility] [address] [place] [address] 04887 Plt Morph [facility] Comment on above: Performed By: #### C RPR #### [facility] [address] [place], [place] [phone] RBC 2.04 X(10)6/cumm Low 3.90-5.10 [facility] Comment on above: Performed By: #### C RPR #### [facility] [address] [place], [place] [phone] RBC Morph cont [facility] Comment on above: Performed By: #### C RPR #### [facility] [address] [place], [place] [phone] RBC morphology finding Nom (Bld) [facility] Comment on above: Performed By: #### C RPR #### [place] [address] WBC 13.3 x(10)3/cumm High 3.6-10.3 [facility] Comment on above: Performed By: #### C RPR #### [facility] [address] [place] [address] WBC Morph Normal [facility] Comment on above: Performed By: #### C RPR #### [place] [address] CT Abdomen / Pelvis without contraston 08-03-2020 [...] by: MARQUISE BARAJAS MD Date: 08/03/2020 16:22 [facility] LD Totalon 08-03-2020 LD 183 U/L Tullos 135-225 [facility] Comment on above: Performed By: #### L D #### [facility] [address] [place] [address] Leukodepleted Red Cells Lilliam emjia 08-03-2020 Product Code [id number] [facility] Comment on above: Performed By: #### C RPR #### [facility] [address] [place] [address] Rel By [facility] Comment on above: Performed By: #### C RPR #### [facility] [address] [place] [address] Rel Date 08/03/20 [facility] Comment on above: Performed By: #### C RPR #### [facility] [address] [place] [address] Rel Time 0610 [facility] Comment on above: Performed By: #### C RPR #### [place] [id number] Rel To cat [facility] Comment on above: Performed By: #### C RPR #### [place] [address] Unit # [id number] [facility] Comment on above: Performed By: #### C RPR #### [place] [id number] Protime and PTTon 08-03-2020 aPTT Coag (Bld) [Time] 21.5 s Low 25.1-36.5 [facility] Comment on above: Order Comment: Tube must be filled. Performed By: #### C RPR #### [place] [id number] INR Coag (PPP) [Relative time] 1.5 {INR} High 0.8-1.1 [facility] Comment on above: Order Comment: Tube must be filled. Performed By: #### C RPR #### [place] [address] New Ref Range Please Note: New References Range for PT and PTT test. [facility] Comment on above: Order Comment: Tube must be filled. Performed By: #### C RPR #### [place] [address] PT Coag (PPP) [Time] 17.1 s High 9.4-12.5 [facility] Comment on above: Order Comment: Tube must be filled. Performed By: #### C RPR #### [place] [address] Ref Range INR Range 0.9-1.1 No rmal 2.0-3.0 Standard Dose 2.5-3.5 High Dose [facility] Comment on above: Order Comment: Tube must be filled. Performed By: #### C RPR #### [place] [address] Operative Reporton Operative Report [facility] [address] [place], [place] [address] RECORD OF PROCEDURE PATIENT NAME: MARY VALIENTE DATE OF : 1960 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 ESTIMATED [...] 1. Posterior T4 to ilium instrumentation utilizing [employer] instrumentation. 2. T4-L1 revision. 3. Bilateral [...] exposed from T10-L4. It was consistent with [employer] instrumentation. Dissection was carried down further [...] [employer] drill was used for a ship harbor pilot hole. Pedicle was transversed with pedicle finder. Interior of pedicle was verified. A 6.5 x 40-mm pedicle screw by [employer] was inserted followed with same size [...] [employer] drill was used for a ship harbor pilot hole. Pedicle was transversed with pedicle finder. [...] pedicle screw (more content not included)... Normal [facility] Basic Metabolic Panelon 06-2 Anion gap [Moles/Vol] 6 mmol/L Low 8-15 [facility] Comment on above: Performed By: #### B MP #### [facility] [address] [place] [address] 99966 Calcium [Mass/Vol] 8.9 mg/dL Normal 8.6-10.6 [facility] Comment on above: Performed By: #### B MP #### [facility] [address] [place] [address] 12441 Chloride [Moles/Vol] 104 mmol/L Normal 98-107 [facility] Comment on above: Performed By: #### B MP #### [facility] [address] [place] [address] 02805 CO2 [Moles/Vol] 28 mmol/L Normal 22-29 [facility] Comment on above: Performed By: #### B MP #### [facility] [address] [place] [address] 16845 Creatinine [Mass/Vol] 0.7 mg/dL Normal 0.5-1.2 [facility] Comment on above: Performed By: #### B MP #### [facility] [address] [place] [address] 49037 eGFR -Amer >=60 Normal >=60 [facility] Comment on above: Performed By: #### B MP #### [facility] [address] [place] [address] 98768 GFR/1.73 sq M.predicted among non-blacks MDRD (S/P/Bld) [Vol rate/Area] mL/min/{1.73_m2} Normal >=60 [facility] Comment on above: Performed By: #### B MP #### [facility] [address] [place] [address] 17765 Glucose [Mass/Vol] 102 mg/dL Normal 74-109 [facility] Comment on above: Performed By: #### B MP #### [facility] [address] [place] [address] 32871 Potassium [Moles/Vol] 4.6 mmol/L Normal 3.4-5.1 [facility] Comment on above: Performed By: #### B MP #### [facility] [address] [place] [address] 27751 Sodium [Moles/Vol] 138 mmol/L Normal 136-145 [facility] Comment on above: Performed By: #### B MP #### [facility] [address] [place] [address] 03658 Urea nitrogen [Mass/Vol] 8 mg/dL Normal 6-23 [facility] Comment on above: Performed By: #### B MP #### [facility] [address] [place] [address] 25812 CBC with Diffon 08-01-2020 BA# 0.1 x(10)3/cumm Normal 0.0-0.1 [facility] Comment on above: Performed By: #### C RPR #### [facility] [address] [place] [address] 52677 Basophils/100 WBC (Bld) 0.6 % Normal 0.0-1.0 [facility] Comment on above: Performed By: #### C RPR #### [facility] [address] [place] [address] 88056 EO# 0.0 x(10)3/cumm Normal 0.0-0.4 [facility] Comment on above: Performed By: #### C RPR #### [facility] [address] [place] [address] 89621 Eosinophils/100 WBC (Bld) 0.1 % Normal 0.0-6.1 [facility] Comment on above: Performed By: #### C RPR #### [facility] [address] [place] [address] 48220 Erythrocyte distribution width (RBC) [Ratio] 12.4 % Normal 11.1-15.3 [facility] Comment on above: Performed By: #### C RPR #### [facility] [address] [place] [address] 19533 Hematocrit (Bld) [Volume fraction] 35.6 % Normal 34.6-45.0 [facility] Comment on above: Performed By: #### C RPR #### [facility] [address] [place] [address] 82224 Hemoglobin (Bld) [Mass/Vol] 12.2 g/dL Normal 11.5-15.5 [facility] Comment on above: Performed By: #### C RPR #### [facility] [address] [place] [address] 53393 LY# 1.8 x(10)3/cumm Normal 0.8-2.9 [facility] Comment on above: Performed By: #### C RPR #### [facility] [address] [place] [address] 13562 Lymphocytes/100 WBC (Bld) 14.2 % Normal 12.2-42.6 [facility] Comment on above: Performed By: #### C RPR #### [facility] [address] [place], [place] [phone] MCH (RBC) [Entitic mass] 32.5 pg Normal 27.2-33.6 [facility] Comment on above: Performed By: #### C RPR #### [facility] [address] [place], [place] [address] MCHC (RBC) [Mass/Vol] 34.2 g/dL Normal 32.9-35.3 [facility] Comment on above: Performed By: #### C RPR #### [facility] [address] [place] [address] 54534 MCV (RBC) [Entitic vol] 94.9 fL Normal 81.3-96.7 [facility] Comment on above: Performed By: #### C RPR #### [facility] [address] [place], [place] [address] MO# 1.2 x(10)3/cumm High 0.2-0.8 [facility] Comment on above: Performed By: #### C RPR #### [facility] [address] [place], [place] [address] Monocytes/100 WBC (Bld) 9.2 % Normal 3.3-11.6 [facility] Comment on above: Performed By: #### C RPR #### [facility] [address] [place] [address] 70334 NE# 9.5 x(10)3/cumm High 1.3-7.4 [facility] Comment on above: Performed By: #### C RPR #### [facility] [address] [place] [address] 32922 Neutrophils/100 WBC (Bld) 75.9 % Normal 44.9-78.8 [facility] Comment on above: Performed By: #### C RPR #### [facility] [address] [place] [address] 82190 Platelet mean volume (Bld) [Entitic vol] 8.1 fL Normal 6.4-10.0 [facility] Comment on above: Performed By: #### C RPR #### [facility] [address] [place], [place] [address] PLT 330 x(10)3/cumm Normal 138-367 [facility] Comment on above: Performed By: #### C RPR #### [facility] [address] [place] [address] 98912 Plt Morph Normal [facility] Comment on above: Performed By: #### C RPR #### [facility] [address] [place] [address] 46870 RBC 3.75 X(10)6/cumm Low 3.90-5.10 [facility] Comment on above: Performed By: #### C RPR #### [facility] [address] [place] [address] 07032 RBC Morph cont Normal [facility] Comment on above: Performed By: #### C RPR #### [facility] [address] [place], [place] [address] RBC morphology finding Nom (Bld) Normal [facility] Comment on above: Performed By: #### C RPR #### [facility] [address] [place], [place] [address] WBC 12.6 x(10)3/cumm High 3.6-10.3 [facility] Comment on above: Performed By: #### C RPR #### [facility] [address] [place] [address] 23788 WBC Morph Normal [facility] Comment on above: Performed By: #### C RPR #### [facility] [address] [place] [address] 29920 Operative Reporton Operative Report [facility] [address] [place] [address] [id number] RECORD OF PROCEDURE PATIENT NAME: MARY VALIENTE DATE OF : 1960 MED REC #: [id number] PT LOCATION: 2W PT TYPE: IP AGE: 59 SEX: F ADMISSION DATE: 07/31/2020 DATE OF SERVICE: 07/31/2020 SURGEON: Marquise Ferrell DO 1ST DIRECTOR SALES [employer] MARKETING: Jose Martin Huitron DO INDICATIONS FOR PROCEDURE/FINDINGS: [...] room in stable condition. Marquise Ferrell DO [facility]/[id number] SSI File#: [id number] CC: Marquise Ferrlel DO [facility] Operative Report [facility] [address] [place], [place] [address] RECORD OF PROCEDURE PATIENT NAME: MARY VALIENTE DATE OF : 1960 MED REC #: [id number] PT LOCATION: 2W PT TYPE: IP AGE: 59 SEX: F ADMISSION DATE: 07/31/2020 DATE OF SERVICE: 07/31/2020 SURGEON: Gaviota London MD CO-SURGEON: Marquise Ferrell DO 1ST DIRECTOR SALES [employer] MARKETING: Huyen Morgan CNP 2ND DIRECTOR SALES AND MARKETING: Stanley Bassett DO ANESTHESIA: General endotracheal. ESTIMATED [...] There were no intraoperative complications. MD KRYSTA Briscoe/[id number] [facility]SI File#: [id number] CC: Gaviota London MD [facility] Basic Metabolic Panelon 07-10 Anion gap [Moles/Vol] 9 mmol/L Normal 8-15 [facility] Comment on above: Performed By: #### B MP #### [address] [address] Calcium [Mass/Vol] 9.2 mg/dL Normal 8.6-10.6 [facility] Comment on above: Performed By: #### B MP #### [facility] [address] [place] [address] 73292 Chloride [Moles/Vol] 100 mmol/L Normal 98-107 [facility] Comment on above: Performed By: #### B MP #### [facility] [address] [place] [address] 31541 CO2 [Moles/Vol] 24 mmol/L Normal 22-29 [facility] Comment on above: Performed By: #### B MP #### [facility] [address] [place] [address] 82408 Creatinine [Mass/Vol] 0.6 mg/dL Normal 0.5-1.2 [facility] Comment on above: Performed By: #### B MP #### [facility] [address] [place] [address] 37756 eGFR -Amer >=60 Normal >=60 [facility] Comment on above: Performed By: #### B MP #### [facility] [address] [place] [address] 68425 GFR/1.73 sq M.predicted among non-blacks MDRD (S/P/Bld) [Vol rate/Area] mL/min/{1.73_m2} Normal >=60 [facility] Comment on above: Performed By: #### B MP #### [facility] [address] [place] [address] 62207 Glucose [Mass/Vol] 97 mg/dL Normal 74-109 [facility] Comment on above: Performed By: #### B MP #### [facility] [address] [place] [address] 03783 Potassium [Moles/Vol] 4.6 mmol/L Normal 3.4-5.1 [facility] Comment on above: Performed By: #### B MP #### [facility] [address] [place] [address] 52182 Sodium [Moles/Vol] 133 mmol/L Low 136-145 [facility] Comment on above: Performed By: #### B MP #### [facility] [address] [place] [address] 92341 Urea nitrogen [Mass/Vol] 14 mg/dL Normal 6-23 [facility] Comment on above: Performed By: #### B MP #### [facility] [address] [place] [address] 68884 CBC with Diffon 07-24-2020 BA# 0.0 x(10)3/cumm Normal 0.0-0.1 [facility] Comment on above: Performed By: #### B IOGI #### [facility] [address] [place] [address] 25955 Basophils/100 WBC (Bld) 0.5 % Normal 0.0-1.0 [facility] Comment on above: Performed By: #### B IOGI #### [facility] [address] [place] [address] 14530 EO# 0.0 x(10)3/cumm Normal 0.0-0.4 [facility] Comment on above: Performed By: #### B IOGI #### [facility] [address] [place] [address] 09089 Eosinophils/100 WBC (Bld) 0.6 % Normal 0.0-6.1 [facility] Comment on above: Performed By: #### B IOGI #### [facility] [address] [place] [address] 13704 Erythrocyte distribution width (RBC) [Ratio] 12.4 % Normal 11.1-15.3 [facility] Comment on above: Performed By: #### B IOGI #### [facility] [address] [place] [address] 70498 Hematocrit (Bld) [Volume fraction] 39.7 % Normal 34.6-45.0 [facility] Comment on above: Performed By: #### B IOGI #### [facility] [address] [place] [address] 52728 Hemoglobin (Bld) [Mass/Vol] 13.5 g/dL Normal 11.5-15.5 [facility] Comment on above: Performed By: #### B IOGI #### [facility] [address] [place] [address] 66867 LY# 1.6 x(10)3/cumm Normal 0.8-2.9 [facility] Comment on above: Performed By: #### B IOGI #### [facility] [address] [place] [address] 91032 Lymphocytes/100 WBC (Bld) 19.7 % Normal 12.2-42.6 [facility] Comment on above: Performed By: #### B IOGI #### [facility] [address] [place], [place] [phone] MCH (RBC) [Entitic mass] 32.4 pg Normal 27.2-33.6 [facility] Comment on above: Performed By: #### B IOGI #### [facility] [address] [place] [address] MCHC (RBC) [Mass/Vol] 34.1 g/dL Normal 32.9-35.3 [facility] Comment on above: Performed By: #### B IOGI #### [facility] [address] [place] [address] 17777 MCV (RBC) [Entitic vol] 95.0 fL Normal 81.3-96.7 [facility] Comment on above: Performed By: #### B IOGI #### [facility] [address] [place] [address] MO# 0.6 x(10)3/cumm Normal 0.2-0.8 [facility] Comment on above: Performed By: #### B IOGI #### [facility] [address] [place] [address] 09470 Monocytes/100 WBC (Bld) 7.4 % Normal 3.3-11.6 [facility] Comment on above: Performed By: #### B IOGI #### [facility] [address] [place] [address] 28651 NE# 5.8 x(10)3/cumm Normal 1.3-7.4 [facility] Comment on above: Performed By: #### B IOGI #### [facility] [address] [place] [address] 17428 Neutrophils/100 WBC (Bld) 71.8 % Normal 44.9-78.8 [facility] Comment on above: Performed By: #### B IOGI #### [facility] [address] [place] [address] 04555 Platelet mean volume (Bld) [Entitic vol] 8.1 fL Normal 6.4-10.0 [facility] Comment on above: Performed By: #### B IOGI #### [facility] [address] [place] [address] 95548 PLT 359 x(10)3/cumm Normal 138-367 [facility] Comment on above: Performed By: #### B IOGI #### [facility] [address] [place] [address] 12607 Plt Morph Normal [facility] Comment on above: Performed By: #### B IOGI #### [facility] [address] [place], [place] [address] RBC 4.17 X(10)6/cumm Normal 3.90-5.10 [facility] Comment on above: Performed By: #### B IOGI #### [facility] [address] [place] [id number] RBC Morph cont Normal [facility] Comment on above: Performed By: #### B IOGI #### [facility] [address] [place] [address] [id number] RBC morphology finding Nom (Bld) Normal [facility] Comment on above: Performed By: #### B IOGI #### [facility] [address] [place] [address] [id number] WBC 8.0 x(10)3/cumm Normal 3.6-10.3 [facility] Comment on above: Performed By: #### B IOGI #### [facility] [address] [place] [address] [id number] WBC Morph Normal [facility] Comment on above: Performed By: #### B IOGI #### [facility] [address] [place], [place] [address] Crossmatch 1 unit PRBCon Ab Screen Negative Normal NEGATIVE [facility] Comment on above: Order Comment: pt. a lreadt TANDS Performed By: #### X M1LRC ####[facility] [place] [address] Patient ABO A Normal [facility] Comment on above: Order Comment: pt. a lreadt TANDS Performed By: #### X M1LRC ####[facility] [place] [address] Patient Rh Positive Abnormal [facility] Comment on above: Order Comment: pt. a lreadt TANDS Performed By: #### X M1LRC ####[facility] [place] [address] TANDSCR narinder date/time 07-24-2020 1117 [facility] Comment on above: Order Comment: pt. a lreadt TANDS Performed By: #### X M1LRC ####[facility] [place] [address] Unit # [id number] [facility] Comment on above: Order Comment: pt. a lreadt TANDS Performed By: #### X M1LRC ####[facility] [place] [address] Unit ABO/Rh Positive Invalid Interpretation Code [facility] Comment on above: Order Comment: pt. a lreadt TANDS Performed By: #### X M1LRC ####[facility] [place], [place] [id number] Unit Exp 08-30-20 [facility] Comment on above: Order Comment: pt. a lreadt TANDS Performed By: #### X M1LRC ####[facility] [place] [address] XM Compat Compatible Normal COMPATIBLE [facility] Comment on above: Order Comment: pt. a lreadt TANDS Performed By: #### X M1LRC ####[facility] [place] [address] Prothrombin Time / PT INRon 07-24-2020 INR Coag (PPP) [Relative time] 1.1 {INR} Normal 0.8-1.1 [facility] Comment on above: Performed By: #### C RPR #### [place] [address] New Ref Range Please Note: New References Range for PT and PTT test. [facility] Comment on above: Performed By: #### C RPR #### [place] [address] PT Coag (PPP) [Time] 12.3 s Normal 9.4-12.5 [facility] Comment on above: Performed By: #### C RPR #### [place] [address] Ref Range INR Range 0.9-1.1 No rmal 2.0-3.0 Standard Dose 2.5-3.5 High Dose [facility] Comment on above: Performed By: #### C RPR #### [place] [address] Type and Screenon 07-24-2020 Ab Screen Negative Normal NEGATIVE [facility] Comment on above: Performed By: #### C RPR #### [place] [address] Patient ABO A Normal [facility] Comment on above: Performed By: #### C RPR #### [place] [address] Patient Rh Positive Abnormal [facility] Comment on above: Performed By: #### C RPR #### [place] [address] MRI THORACIC SP W/O CONTRAST on 04-20-2020 [...] ---- Signed By: Ernesto Sprague MD [email or web address] Dictated: 04/20/2020 12:47 PM Signed: 04/20/2020 12:59 PM Reported By: ERNESTO SPRAGUE M.D. Signed By: ERNESTO SPRAGUE M.D. [facility] XR SCOLIOSIS 2V PA STAND/LAT [...] on May 20 2018 12:37PM EST [id number] [facility] XR LUMBAR 2V AP/LATon 2018 XR LUMBAR [...] MD on Feb 25 2018 12:35PM EST [id number] XR SCOLIOSIS 2V PA STAND/LAT on 10-22-2017 [...] MD on Oct 22 2017 9:57AM EST [id number] SCOLIOSIS 2V PA STAND/LAT on 06-09-2017 [...] on Jun 09 2017 9:49AM EST [id number] [facility] CT ABDOMEN AND PELVIS WITH C ONTRASTon 04-22-2017 CT ABDOMEN AND PELVIS WITH CONTRAST Performed at [facility] APPROVED BY: YANETH APODACA MD EXAMINATION: [...] No acute abnormality. Findings as above. Normal [facility] Comprehensive Panelon 2017 Alkaline phosphatase (ALP) 92 U/L Normal 46-116 [facility] Comment on above: Performed By: #### P 14 ####[address] [address] Bilirubin Ql (U) 0.3 mg/dL Normal 0.2-1.0 [facility] Comment on above: Performed By: #### P 14 ####[facility] [place], [place] [address] Protein 6.6 g/dL Normal 6.4-8.2 [facility] Comment on above: Performed By: #### P 14 ####[address] [address] Alanine aminotransferase (ALT) 37 U/L Normal 12-78 [facility] Comment on above: Performed By: #### P 14 ####[facility] [place], [place] [address] Aspartate aminotransferase (AST) 47 U/L High 9-37 [facility] Comment on above: Performed By: #### P 14 ####[facility] [place], [place] [address] Creatinine 0.44 mg/dL Low 0.51-0.95 [facility] Comment on above: Performed By: #### P 14 ####[facility] [place], [place] [address] Albumin 2.9 g/dL Low 3.4-5.0 [facility] Comment on above: Performed By: #### P 14 ####[facility] [place], [place] [address] Glucose mass conc 104 mg/dL High 70-99 [facility] Comment on above: Performed By: #### P 14 ####[facility] [place], [place] [address] Urea nitrogen 8 mg/dL Normal 7-18 [facility] Comment on above: Performed By: #### P 14 ####[address] [address] Anion gap 11 mmol/L Normal 8-16 [facility] Comment on above: Performed By: #### P 14 ####[address] [address] Calcium 9.0 mg/dL Normal 8.5-10.1 [facility] Comment on above: Performed By: #### P 14 ####[facility] [place], [place] [address] CO2 27 mmol/L Normal 21-32 [facility] Comment on above: Performed By: #### P 14 ####[facility] [place], [place] [address] Chloride 98 mmol/L Normal 98-107 [facility] Comment on above: Performed By: #### P 14 ####[address] [address] Potassium molar conc 3.7 mmol/L Normal 3.5-5.1 [facility] Comment on above: Performed By: #### P 14 ####[place] [address] Sodium 132 mmol/L Low 136-145 [facility] Comment on above: Performed By: #### P 14 ####[place] [address] Hemogram/Diffon 04-22-2017 Abs Immature Grans 0.13 thou/cmm High 0.00-0.05 [facility] Comment on above: Performed By: #### C BCD1 ####[place] [address] Abs. Baso 0.03 thou/cmm Normal 0.01-0.08 [facility] Comment on above: Performed By: #### C BCD1 ####[place] [address] Abs. Jasper 1.02 thou/cmm High 0.27-0.70 [facility] Comment on above: Performed By: #### C BCD1 ####[place] [address] Abs. Neut 6.44 thou/cmm High 1.56-6.13 [facility] Comment on above: Performed By: #### C BCD1 ####[place] [address] Basophils/100 WBC Auto (Bld) 0.3 % Normal [facility] Comment on above: Performed By: #### C BCD1 ####[place] [address] Eosinophils 0.19 thou/cmm Normal 0.00-0.31 [facility] Comment on above: Performed By: #### C BCD1 ####[place] [address] Eosinophils/100 leukocytes 2.0 % Normal [facility] Comment on above: Performed By: #### C BCD1 ####[place] [address] Erythrocyte distribution width Auto Ratio (RBC) 12.7 % Normal 11.7-14.4 [facility] Comment on above: Performed By: #### C BCD1 ####[place] [address] Erythrocytes (RBC) 3.05 mil/cmm Low 3.93-5.22 [facility] Comment on above: Performed By: #### C BCD1 ####[place] [address] Hematocrit (HCT) 27.4 % Low 34.1-44.9 [facility] Comment on above: Performed By: #### C BCD1 ####[place] [address] Hemoglobin mass conc (Bld) 9.7 g/dL Low 11.2-15.7 [facility] Comment on above: Performed By: #### C BCD1 ####[place] [address] Immature Grans 1.40 % Normal [facility] Comment on above: Performed By: #### C BCD1 ####[place] [address] Lymphocytes 1.48 thou/cmm Normal 1.18-3.74 [facility] Comment on above: Performed By: #### C BCD1 ####[place] [address] Lymphocytes/100 leukocytes 15.9 % Normal [facility] Comment on above: Performed By: #### C BCD1 ####[place] [address] MCH 31.8 pg Normal 25.6-32.2 [facility] Comment on above: Performed By: #### C BCD1 ####[place] [address] MCHC mass conc (RBC) 35.4 % High 31.6-34.8 [facility] Comment on above: Performed By: #### C BCD1 ####[place] [address] MCV 89.8 fL Normal 79.4-94.8 [facility] Comment on above: Performed By: #### C BCD1 ####[facility] [place], [place] [address] Monocytes/100 leukocytes 11.0 % Normal [facility] Comment on above: Performed By: #### C BCD1 ####[address] [address] Platelet mean volume (PMV) 8.9 fL Low 9.4-12.3 [facility] Comment on above: Performed By: #### C BCD1 ####[address] [address] Platelets 550 thou/cmm High 182-369 [facility] Comment on above: Performed By: #### C BCD1 ####[address] [address] RDW SD 41.4 fl Normal 36.4-46.3 [facility] Comment on above: Performed By: #### C BCD1 ####[address] [address] Seg Neutrophil 69.4 % Normal [facility] Comment on above: Performed By: #### C BCD1 ####[address] [address] WBC (Leukocytes) 9.28 thou/cmm Normal 3.98-10.04 [facility] Comment on above: Performed By: #### C BCD1 ####[address] [address] Lactic Acidon 04-22-2017 Lactate 0.8 mmol/L Normal 0.4-2.0 [facility] Comment on above: Performed By: #### L AC ####[address] [address] Lipase Bloodon 04-22-2017 Lipase Blood 78 U/L Normal 73-393 [facility] Comment on above: Performed By: #### L IP ####[address] [address] MDRD GFRon 04-22-2017 eGFR (non-black) mL/min/{1.73_m2} Normal >60mL/m in/1. 73m2 [facility] Comment on above: Result Comment: If t he patient is , multiply the result by 1.210. Performed By: #### G FR ####[address] [address] Urinalysis Routineon 018 Ep Cells Urine 0.9 /hpf Normal 0.0-5.0 [facility] Comment on above: Performed By: #### U RIN2 ####[address] [address] Hyaline Cast 1.2 /lpf High 0.0-1.0 [facility] Comment on above: Performed By: #### U RIN2 ####[address] [address] Urine, bacteria in sediment NONE Normal None [facility] Comment on above: Performed By: #### U RIN2 ####[address] [address] Urine, erythrocytes in sediment by area 2.5 /[HPF] Normal 0.0-5.0 [facility] Comment on above: Performed By: #### U RIN2 ####[address] [address] Urine, leukocytes in sedmiment 1.0 /[HPF] Normal 0.0-5.0 [facility] Comment on above: Performed By: #### U RIN2 ####[address] [address] Bilirubin Urine Negative Normal Negative [facility] Comment on above: Performed By: #### U RIN2 ####[address] [address] Hemoglobin,Urine Negative Normal Negative [facility] Comment on above: Performed By: #### U RIN2 ####[address] [address] Ketone Urine 40 mg/dL Abnormal Negative [facility] Comment on above: Performed By: #### U RIN2 ####[place] [address] Nitrites Urine Negative Normal Negative [facility] Comment on above: Performed By: #### U RIN2 ####[place] [address] Protein Urine Negative Normal Negative [facility] Comment on above: Performed By: #### U RIN2 ####[place] [address] Specific [place], Ur 1.010 Normal 1.005-1.030 [facility] Comment on above: Performed By: #### U RIN2 ####[place] [address] Urine, appearance TURBID Normal [facility] Comment on above: Performed By: #### U RIN2 ####[place] [address] Urine, color YELLOW Normal [facility] Comment on above: Performed By: #### U RIN2 ####[place] [address] Urine, glucose presence Negative Normal Negative [facility] Comment on above: Performed By: #### U RIN2 ####[place] [address] Urine, pH 8.0 [pH] Normal 5.0-8.0 [facility] Comment on above: Performed By: #### U RIN2 ####[place] [address] Urobilinogen,Ur 0.2 EU/dL Normal 0.0-1.0 [facility] Comment on above: Performed By: #### U RIN2 ####[place] [address] WBC (Leukocytes) Negative Normal Negative [facility] Comment on above: Performed By: #### U RIN2 ####[place] [address] Culture, urine Bacteria identified Cx Nom (U) Presumptive E. coli [facility] Work Phone: Vital Signs Date Time Vital Sign Value Performing Clinician Facility 11-04-2024 10:36-0400 Body height 147.[address] Jerrica Marshall MD Work Phone: [facility] 11-04-2024 10:36-0400 Body mass index (BMI) [Ratio] 20.7 kg/m2 Dr. Jerrica Marshall MD Work Phone: [facility] 11-04-2024 10:36-0400 Body temperature 98.1 [degF] Dr. Jerrica Marshall MD Work Phone: [facility] 11-04-2024 10:36-0400 Body weight 44.[address] Jerrica Marshall MD Work Phone: [facility] 11-04-2024 10:36-0400 Diastolic blood pressure 80 mm[Hg] Dr. Jerrica Marshall MD Work Phone: [facility] 11-04-2024 10:36-0400 Heart rate 77 /min Dr. Jerrica Marshall MD Work Phone: [facility] 11-04-2024 10:36-0400 Respiratory rate 16 /min Dr. Jerrica Marshall MD Work Phone: [facility] 11-04-2024 10:36-0400 SaO2% (BldA) [Mass fraction] 99 % Dr. Jerrica Marshall MD Work Phone: [facility] 11-04-2024 10:36-0400 Systolic blood pressure 123 mm[Hg] Dr. Jerrica Marshall MD Work Phone: [facility] 10-20-2024 10:36-0400 Body height 147.[address] Jerrica Marshall MD Work Phone: [facility] 10-20-2024 10:36-0400 Body mass index (BMI) [Ratio] 20.5 kg/m2 Dr. Jerrica Marshall MD Work Phone: [facility] 10-20-2024 10:36-0400 Body temperature 98 [degF] Dr. Jerrica Marshall MD Work Phone: [facility] 10-20-2024 10:36-0400 Body weight 44.[address] Jerrica Marshall MD Work Phone: [facility] 10-20-2024 10:36-0400 Diastolic blood pressure 80 mm[Hg] Dr. Jerrica Marshall MD Work Phone: [facility] 10-20-2024 10:36-0400 Heart rate 66 /min Dr. Jerrica Marshall MD Work Phone: [facility] 10-20-2024 10:36-0400 Respiratory rate 14 /min Dr. Jerrica Marshall MD Work Phone: [facility] 10-20-2024 10:36-0400 SaO2% (BldA) [Mass fraction] 98 % Dr. Jerrica Marshall MD Work Phone: [facility] 10-20-2024 10:36-0400 Systolic blood pressure 124 mm[Hg] Dr. Jerrica Marshall MD Work Phone: [facility] 10-18-2024 07:18-0400 Body weight 44.[address] Jerrica Marshall MD Work Phone: [facility] 10-17-2024 09:49-0400 Body height 147.[address] Jerrica Marshall MD Work Phone: [facility] 10-17-2024 09:49-0400 Body mass index (BMI) [Ratio] 20.7 kg/m2 Dr. Jerrica Marshall MD Work Phone: [facility] 10-17-2024 09:49-0400 Body temperature 97 [degF] Dr. Jerrica Marshall MD Work Phone: [facility] 10-17-2024 09:49-0400 Body weight 44.[address] Jerrica Marshall MD Work Phone: [facility] 10-17-2024 09:49-0400 Diastolic blood pressure 68 mm[Hg] Dr. Jerrica Marshall MD Work Phone: [facility] 10-17-2024 09:49-0400 Heart rate 70 /min Dr. Jerrica Marshall MD Work Phone: [facility] 10-17-2024 09:49-0400 Respiratory rate 18 /min Dr. Jerrica Marshall MD Work Phone: [facility] 10-17-2024 09:49-0400 SaO2% (BldA) [Mass fraction] 98 % Dr. Jerrica Marshall MD Work Phone: [facility] 10-17-2024 09:49-0400 Systolic blood pressure 122 mm[Hg] Dr. Jerrica Marshall MD Work Phone: [facility] 09-27-2024 10:49-0400 Body height 144.8 cm Valorie Oh APRN.[employer] Work Phone: [facility] 09-27-2024 10:49-0400 Body mass index (BMI) [Ratio] 21.16 kg/m2 Valorie Oh APRN.[employer] OPER[employer] Work Phone: [facility] 09-27-2024 10:49-0400 Body weight 44.36 kg Valorie Oh APRN.[employer] OPER[employer] Work Phone: [facility] 09-27-2024 10:49-0400 Diastolic blood pressure 78 mm[Hg] Valorie Oh APRN.[employer] OPER[employer] Work Phone: [facility] 09-27-2024 10:49-0400 Heart rate 89 /min Valorie Oh APRN.[employer] Work Phone: [facility] 09-27-2024 10:49-0400 SaO2% (BldA) [Mass fraction] 99 % Valorie Oh APRN.[employer] OPER[employer] Work Phone: [facility] 09-27-2024 10:49-0400 Systolic blood pressure 129 mm[Hg] Valorie Oh APRN.[employer] O[employer] Work Phone: [facility] 09-22-2024 11:25-0400 Body temperature 97.9 [degF] Dr. Jerrica Marshall MD Work Phone: [facility] 09-22-2024 11:25-0400 Diastolic blood pressure 59 mm[Hg] Dr. Jerrica Marshall MD Work Phone: [facility] 09-22-2024 11:25-0400 Heart rate 76 /min Dr. Jerrica Marshall MD Work Phone: [facility] 09-22-2024 11:25-0400 Respiratory rate 18 /min Dr. Jerrica Marshall MD Work Phone: [facility] 09-22-2024 11:25-0400 SaO2% (BldA) [Mass fraction] 96 % Dr. Jerrica Marshall MD Work Phone: [facility] 09-22-2024 11:25-0400 Systolic blood pressure 98 mm[Hg] Dr. Jerrica Marshall MD Work Phone: [facility] 09-22-2024 09:38-0400 Body height 147.[address] Jerrica Marshall MD Work Phone: [facility] 09-22-2024 09:38-0400 Body mass index (BMI) [Ratio] 19.9 kg/m2 Dr. Jerrica Marshall MD Work Phone: [facility] 09-22-2024 09:38-0400 Body weight 43.[address] Jerrica Marshall MD Work Phone: [facility] 09-14-2024 14:42-0400 Body height 147.[address] Jerrica Marshall MD Work Phone: [facility] 09-14-2024 14:42-0400 Body mass index (BMI) [Ratio] 20 kg/m2 Dr. Jerrica Marshall MD Work Phone: [facility] 09-14-2024 14:42-0400 Body weight 43.[address] Jerrica Marshall MD Work Phone: [facility] 09-14-2024 14:42-0400 Diastolic blood pressure 78 mm[Hg] Dr. Jerrica Marshall MD Work Phone: [facility] 09-14-2024 14:42-0400 Respiratory rate 18 /min Dr. Jerrica Marshall MD Work Phone: [facility] 09-14-2024 14:42-0400 Systolic blood pressure 121 mm[Hg] Dr. Jerrica Marshall MD Work Phone: [facility] 08-22-2024 09:59-0400 Body height 147.[address] Jerrica Marshall MD Work Phone: [facility] 08-22-2024 09:59-0400 Body mass index (BMI) [Ratio] 20.5 kg/m2 Dr. Jerrica Marshall MD Work Phone: [facility] 08-22-2024 09:59-0400 Body temperature 98.2 [degF] Dr. Jerrica Marshall MD Work Phone: [facility] 08-22-2024 09:59-0400 Body weight 44.[address] Jerrica Marshall MD Work Phone: [facility] 08-22-2024 09:59-0400 Diastolic blood pressure 64 mm[Hg] Dr. Jerrica Marshall MD Work Phone: [facility] 08-22-2024 09:59-0400 Heart rate 113 /min Dr. Jerrica Marshall MD Work Phone: [facility] 08-22-2024 09:59-0400 Respiratory rate 16 /min Dr. Jerrica Marshall MD Work Phone: [facility] 08-22-2024 09:59-0400 SaO2% (BldA) [Mass fraction] 98 % Dr. Jerrica Marshall MD Work Phone: [facility] 08-22-2024 09:59-0400 Systolic blood pressure 100 mm[Hg] Dr. Jerrica Marshall MD Work Phone: [facility] 06-29-2024 10:20-0400 Body height 147.[address] Jerrica Marshall MD Work Phone: [facility] 06-29-2024 10:20-0400 Body mass index (BMI) [Ratio] 21.2 kg/m2 Dr. Jerrica Marshall MD Work Phone: [facility] 06-29-2024 10:20-0400 Body temperature 98.6 [degF] Dr. Jerrica Marshall MD Work Phone: [facility] 06-29-2024 10:20-0400 Body weight 45.[address] Jerrica Marshall MD Work Phone: [facility] 06-29-2024 10:20-0400 Diastolic blood pressure 68 mm[Hg] Dr. Jerrica Marshall MD Work Phone: [facility] 06-29-2024 10:20-0400 Heart rate 83 /min Dr. Jerrica Marshall MD Work Phone: [facility] 06-29-2024 10:20-0400 Respiratory rate 18 /min Dr. Jerrica Marshall MD Work Phone: [facility] 06-29-2024 10:20-0400 SaO2% (BldA) [Mass fraction] 98 % Dr. Jerrica Marshall MD Work Phone: [facility] 06-29-2024 10:20-0400 Systolic blood pressure 98 mm[Hg] Dr. Jerrica Marshall MD Work Phone: [facility] 06-01-2024 14:10-0400 Body temperature 97.3 [degF] Dr. Jerrica Marshall MD Work Phone: [facility] 06-01-2024 14:10-0400 Diastolic blood pressure 73 mm[Hg] Dr. Jerrica Marshall MD Work Phone: [facility] 06-01-2024 14:10-0400 Heart rate 76 /min Dr. Jerrica Marshall MD Work Phone: [facility] 06-01-2024 14:10-0400 Systolic blood pressure 117 mm[Hg] Dr. Jerrica Marshall MD Work Phone: [facility] 06-01-2024 13:43-0400 Respiratory rate 16 /min Dr. Jerrica Marshall MD Work Phone: [facility] 06-01-2024 13:43-0400 SaO2% (BldA) [Mass fraction] 98 % Dr. Jerrica Marshall MD Work Phone: [facility] 05-31-2024 10:41-0400 Body mass index (BMI) [Ratio] 21.2 kg/m2 Dr. Jerrica Marshall MD Work Phone: [facility] 05-31-2024 10:41-0400 Body temperature 98.6 [degF] Dr. Jerrica Marshall MD Work Phone: [facility] 05-31-2024 10:41-0400 Body weight 45.[address] Jerrica Marshall MD Work Phone: [facility] 05-31-2024 10:41-0400 Diastolic blood pressure 77 mm[Hg] Dr. Jerrica Marshall MD Work Phone: [facility] 05-31-2024 10:41-0400 Heart rate 74 /min Dr. Jerrica Marshall MD Work Phone: [facility] 05-31-2024 10:41-0400 Respiratory rate 18 /min Dr. Jerrica Marshall MD Work Phone: [facility] 05-31-2024 10:41-0400 SaO2% (BldA) [Mass fraction] 99 % Dr. Jerrica Marshall MD Work Phone: [facility] 05-31-2024 10:41-0400 Systolic blood pressure 120 mm[Hg] Dr. Jerrica Marshall MD Work Phone: [facility] 05-03-2024 09:49-0400 Body mass index (BMI) [Ratio] 21.1 kg/m2 Dr. Jerrica Marshall MD Work Phone: [facility] 05-03-2024 09:49-0400 Body temperature 98 [degF] Dr. Jerrica Marshall MD Work Phone: [facility] 05-03-2024 09:49-0400 Body weight 45.[address] Jerrica Marshall MD Work Phone: [facility] 05-03-2024 09:49-0400 Diastolic blood pressure 67 mm[Hg] Dr. Jerrica Marshall MD Work Phone: [facility] 05-03-2024 09:49-0400 Heart rate 70 /min Dr. Jerrica Marshall MD Work Phone: [facility] 05-03-2024 09:49-0400 Respiratory rate 16 /min Dr. Jerrica Marshall MD Work Phone: [facility] 05-03-2024 09:49-0400 SaO2% (BldA) [Mass fraction] 100 % Dr. Jerrica Marshall MD Work Phone: [facility] 05-03-2024 09:49-0400 Systolic blood pressure 98 mm[Hg] Dr. Jerrica Marshall MD Work Phone: [facility] 04-05-2024 09:51-0500 Body mass index (BMI) [Ratio] 20.9 kg/m2 Dr. Jerrica Marshall MD Work Phone: [facility] 04-05-2024 09:51-0500 Body temperature 98.1 [degF] Dr. Jerrica Marshall MD Work Phone: [facility] 04-05-2024 09:51-0500 Body weight 45.[address] Jerrica Marshall MD Work Phone: [facility] 04-05-2024 09:51-0500 Diastolic blood pressure 75 mm[Hg] Dr. Jerrica Marshall MD Work Phone: [facility] 04-05-2024 09:51-0500 Heart rate 67 /min Dr. Jerrica Marshall MD Work Phone: [facility] 04-05-2024 09:51-0500 Respiratory rate 18 /min Dr. Jerrica Marshall MD Work Phone: [facility] 04-05-2024 09:51-0500 SaO2% (BldA) [Mass fraction] 100 % Dr. Jerrica Marshall MD Work Phone: [facility] 04-05-2024 09:51-0500 Systolic blood pressure 113 mm[Hg] Dr. Jerrica Marshall MD Work Phone: [facility] 03-30-2024 15:00-0500 Diastolic blood pressure 75 mm[Hg] Dr. Jerrica Marshall MD Work Phone: [facility] 03-30-2024 15:00-0500 Heart rate 75 /min Dr. Jerrica Marshall MD Work Phone: [facility] 03-30-2024 15:00-0500 Respiratory rate 18 /min Dr. Jerrica Marshall MD Work Phone: [facility] 03-30-2024 15:00-0500 SaO2% (BldA) [Mass fraction] 99 % Dr. Jerrica Marshall MD Work Phone: [facility] 03-30-2024 15:00-0500 Systolic blood pressure 124 mm[Hg] Dr. Jerrica Marshall MD Work Phone: [facility] 03-30-2024 10:46-0500 Body mass index (BMI) [Ratio] 21.1 kg/m2 Dr. Jerrica Marshall MD Work Phone: [facility] 03-30-2024 10:46-0500 Body weight 45.[address] Jerrica Marshall MD Work Phone: [facility] 03-30-2024 09:13-0500 Body temperature 97.5 [degF] Dr. Jerrica Marshall MD Work Phone: [facility] 03-28-2024 10:21-0500 Body height 147 cm Valorie Oh APRN.TOWER CRANE OPERATOR Work Phone: [facility] 03-28-2024 10:21-0500 Body mass index (BMI) [Ratio] 21.12 kg/m2 Valorie Oh APRN.TOWER CRANE OPERATOR Work Phone: [facility] 03-28-2024 10:21-0500 Body weight 45.63 kg Valorie Oh APRN.TOWER CRANE OPERATOR Work Phone: [facility] 03-28-2024 10:21-0500 Diastolic blood pressure 72 mm[Hg] Valorie Oh APRN.TOWER CRANE OPERATOR Work Phone: [facility] 03-28-2024 10:21-0500 Heart rate 99 /min Valorie Oh APRN.TOWER CRANE OPERATOR Work Phone: [facility] 03-28-2024 10:21-0500 SaO2% (BldA) [Mass fraction] 98 % Valorie Oh APRN.TOWER CRANE OPERATOR Work Phone: [facility] 03-28-2024 10:21-0500 Systolic blood pressure 111 mm[Hg] Valorie Oh APRN.TOWER CRANE OPERATOR Work Phone: [facility] 03-08-2024 09:43-0500 Body mass index (BMI) [Ratio] 21.3 kg/m2 Dr. Jerrica Marshall MD Work Phone: [facility] 03-08-2024 09:43-0500 Body temperature 98.6 [degF] Dr. Jerrica Marshall MD Work Phone: [facility] 03-08-2024 09:43-0500 Body weight 46.[address] Jerrica Marshall MD Work Phone: [facility] 03-08-2024 09:43-0500 Diastolic blood pressure 76 mm[Hg] Dr. Jerrica Marshall MD Work Phone: [facility] 03-08-2024 09:43-0500 Heart rate 83 /min Dr. Jerrica Marshall MD Work Phone: [facility] 03-08-2024 09:43-0500 Respiratory rate 18 /min Dr. Jerrica Marshall MD Work Phone: [facility] 03-08-2024 09:43-0500 SaO2% (BldA) [Mass fraction] 98 % Dr. Jerrica Marshall MD Work Phone: [facility] 03-08-2024 09:43-0500 Systolic blood pressure 114 mm[Hg] Dr. Jerrica Marshall MD Work Phone: [facility] 02-15-2024 12:57-0500 Body mass index (BMI) [Ratio] 22.4 kg/m2 Dr. Jerrica Marshall MD Work Phone: [facility] 09-28-2023 09:36-0400 Body height 146.7 cm Valorie Oh APRN.TOWER CRANE OPERATOR Work Phone: [facility] 09-28-2023 09:36-0400 Body mass index (BMI) [Ratio] 23.4 kg/m2 Valorie Oh APRN.TOWER CRANE OPERATOR Work Phone: [facility] 09-28-2023 09:36-0400 Body weight 50.35 kg Valorie Oh APRN.TOWER CRANE OPERATOR Work Phone: [facility] 09-28-2023 09:36-0400 Diastolic blood pressure 73 mm[Hg] Valorie Oh APRN.TOWER CRANE OPERATOR Work Phone: [facility] 09-28-2023 09:36-0400 Heart rate 61 /min Valorie Oh APRN.TOWER CRANE OPERATOR Work Phone: [facility] 09-28-2023 09:36-0400 SaO2% (BldA) [Mass fraction] 98 % Valorie Oh APRN.TOWER CRANE OPERATOR Work Phone: [facility] 09-28-2023 09:36-0400 Systolic blood pressure 125 mm[Hg] Valorie Oh APRN.TOWER CRANE OPERATOR Work Phone: [facility] 09-14-2023 08:52-0400 Body mass index (BMI) [Ratio] 23.87 kg/m2 Rosio Chandler MD Work Phone: [facility] 09-14-2023 08:52-0400 Body weight 51.8 kg Rosio Chandler MD Work Phone: [facility] 09-14-2023 08:52-0400 Diastolic blood pressure 71 mm[Hg] Rosio Chandler MD Work Phone: [facility] 09-14-2023 08:52-0400 Heart rate 60 /min Rosio Chandler MD Work Phone: [facility] 09-14-2023 08:52-0400 Respiratory rate 16 /min Rosio Chandler MD Work Phone: [facility] 09-14-2023 08:52-0400 SaO2% (BldA) [Mass fraction] 97 % Rosio Chandler MD Work Phone: [facility] 09-14-2023 08:52-0400 Systolic blood pressure 124 mm[Hg] Rosio Chandler MD Work Phone: [facility] 09-03-2023 10:48-0400 Body height 147.3 cm Bryanna Webber APRN.TOWER CRANE OPERATOR Work Phone: [facility] 09-03-2023 10:48-0400 Body mass index (BMI) [Ratio] 23.18 kg/m2 Bryanna Webber 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 Work Phone: [facility] 09-03-2023 10:48-0400 Body temperature 97.81 [degF] Bryanna Webber APRN.TOWER CRANE OPERATOR Work Phone: [facility] 09-03-2023 10:48-0400 Body weight 50.3 kg Bryanna Webber APRN.TOWER CRANE OPERATOR Work Phone: [facility] 09-03-2023 10:48-0400 Diastolic blood pressure 72 mm[Hg] Bryanna Webber 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 Work Phone: [facility] 09-03-2023 10:48-0400 Heart rate 74 /min Bryanna Webber APRN.TOWER CRANE OPERATOR Work Phone: [facility] 09-03-2023 10:48-0400 SaO2% (BldA) [Mass fraction] 99 % Bryanna Webber 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 Work Phone: [facility] 09-03-2023 10:48-0400 Systolic blood pressure 128 mm[Hg] Bryanna Webber 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 Work Phone: [facility] 05-12-2023 08:59-0400 Body height 152.[address] Jerrica Marshall Work Phone: [facility] 05-12-2023 08:59-0400 Body mass index (BMI) [Ratio] 22.6 kg/m2 Dr. Jerrica Marshall Work Phone: [facility] 05-12-2023 08:59-0400 Body temperature 97 [degF] Dr. Jerrica Marshall Work Phone: [facility] 05-12-2023 08:59-0400 Body weight 52.[address] Jerrica Marshall Work Phone: [facility] 05-12-2023 08:59-0400 Diastolic blood pressure 78 mm[Hg] Dr. Jerrica Marshall Work Phone: [facility] 05-12-2023 08:59-0400 Heart rate 103 /min Dr. Jerrica Marshall Work Phone: [facility] 05-12-2023 08:59-0400 Respiratory rate 20 /min Dr. Jerrica Marshall Work Phone: [facility] 05-12-2023 08:59-0400 SaO2% (BldA) [Mass fraction] 95 % Dr. Jerrica Marshall Work Phone: [facility] 05-12-2023 08:59-0400 Systolic blood pressure 128 mm[Hg] Dr. Jerrica Marshall Work Phone: [facility] 04-13-2023 09:12-0500 Body temperature 97.9 [degF] Jose Martin Hagen APRN.TOWER CRANE OPERATOR Work Phone: [facility] 04-13-2023 09:12-0500 Diastolic blood pressure 84 mm[Hg] Jose Martin Hagen APRN.TOWER CRANE OPERATOR Work Phone: [facility] 04-13-2023 09:12-0500 Heart rate 91 /min Jose Martinsupa Hagen APRN.TOWER CRANE OPERATOR Work Phone: [facility] 04-13-2023 09:12-0500 Respiratory rate 20 /min Jose Martin Hagen APRN.TOWER CRANE OPERATOR Work Phone: [facility] 04-13-2023 09:12-0500 SaO2% (BldA) [Mass fraction] 97 % Jose Martin Hagen APRN.TOWER CRANE OPERATOR Work Phone: [facility] 04-13-2023 09:12-0500 Systolic blood pressure 132 mm[Hg] Jose Martin Hagen APRN.TOWER CRANE OPERATOR Work Phone: [facility] 01-26-2023 13:37-0500 Body height 152.[address] Jerrica Marshall Work Phone: [facility] 01-26-2023 13:37-0500 Body mass index (BMI) [Ratio] 23 kg/m2 Dr. Jerrica Marshall Work Phone: [facility] 01-26-2023 13:37-0500 Body temperature 98.7 [degF] Dr. Jerrica Marshall Work Phone: [facility] 01-26-2023 13:37-0500 Body weight 53.[address] Jerrica Marshall Work Phone: [facility] 01-26-2023 13:37-0500 Diastolic blood pressure 88 mm[Hg] Dr. Jerrica Marshall Work Phone: [facility] 01-26-2023 13:37-0500 Heart rate 89 /min Dr. Jerrica Marshall Work Phone: [facility] 01-26-2023 13:37-0500 Respiratory rate 16 /min Dr. Jerrica Marshall Work Phone: [facility] 01-26-2023 13:37-0500 SaO2% (BldA) [Mass fraction] 97 % Dr. Jerrica Marshall Work Phone: [facility] 01-26-2023 13:37-0500 Systolic blood pressure 130 mm[Hg] Dr. Jerrica Marshall Work Phone: [facility] 01-06-2023 11:56-0500 Heart rate 66 /min Bhavanafarheen Dunn DO Work Phone: [facility] 01-06-2023 11:56-0500 Respiratory rate 13 /min Bhavana Josueub DO Work Phone: [facility] 01-06-2023 11:56-0500 SaO2% (BldA) [Mass fraction] 100 % Bhavana Josueub DO Work Phone: [facility] 01-06-2023 11:20-0500 Body temperature 97.59 [degF] Bhavana Dunn DO Work Phone: [facility] 01-06-2023 11:20-0500 Diastolic blood pressure 79 mm[Hg] Bhavana Dunn DO Work Phone: [facility] 01-06-2023 11:20-0500 Systolic blood pressure 150 mm[Hg] [facility]un [facility] 11-19-2022 10:45-0400 Body height 147.3 cm Rosio Chandler MD Work Phone: [facility] 11-19-2022 10:45-0400 Body weight 52.5 kg Rosio Chandler MD Work Phone: [facility] 11-19-2022 10:45-0400 Diastolic blood pressure 76 mm[Hg] Rosio Chandler MD Work Phone: [facility] 11-19-2022 10:45-0400 Heart rate 75 /min Rosio Chandler MD Work Phone: [facility] 11-19-2022 10:45-0400 Respiratory rate 16 /min Rosio Chandler MD Work Phone: [facility] 11-19-2022 10:45-0400 SaO2% (BldA) [Mass fraction] 99 % Rosio Chandler MD Work Phone: [facility] 11-19-2022 10:45-0400 Systolic blood pressure 113 mm[Hg] Rosio Chandler MD Work Phone: [facility] 10-08-2022 10:48-0400 Body height 147.3 cm Rosio Chandler MD Work Phone: [facility] 10-08-2022 10:48-0400 Body weight 50.3 kg Rosio Chandler MD Work Phone: [facility] 10-08-2022 10:48-0400 Diastolic blood pressure 79 mm[Hg] Rosio Chandler MD Work Phone: [facility] 10-08-2022 10:48-0400 Heart rate 70 /min Rosio Chandler MD Work Phone: [facility] 10-08-2022 10:48-0400 Respiratory rate 16 /min Rosio Chandler MD Work Phone: [facility] 10-08-2022 10:48-0400 SaO2% (BldA) [Mass fraction] 100 % Rosio Chandler MD Work Phone: [facility] 10-08-2022 10:48-0400 Systolic blood pressure 120 mm[Hg] Rosio Chandler MD Work Phone: [facility] 09-08-2022 10:59-0400 Body height 147.3 cm Sumeet Leger PA-C Work Phone: [facility] 09-08-2022 10:59-0400 Body temperature 96.49 [degF] Sumeet Leger PA-C Work Phone: [facility] 09-08-2022 10:59-0400 Body weight 50.35 kg Sumeet Leger PA-C Work Phone: [facility] 09-08-2022 10:59-0400 Diastolic blood pressure 83 mm[Hg] Sumeet Leger PA-C Work Phone: [facility] 09-08-2022 10:59-0400 Heart rate 65 /min Sumeet Leger PA-C Work Phone: [facility] 09-08-2022 10:59-0400 SaO2% (BldA) [Mass fraction] 98 % Sumeet Leger PA-C Work Phone: [facility] 09-08-2022 10:59-0400 Systolic blood pressure 128 mm[Hg] Sumeet Leger PA-C Work Phone: [facility] 08-25-2022 12:54-0400 Body height 147.3 cm Sumeet Leger PA-C Work Phone: [facility] 08-25-2022 12:54-0400 Body weight 50.9 kg Sumeet Leger PA-C Work Phone: [facility] 08-25-2022 12:54-0400 Diastolic blood pressure 82 mm[Hg] Sumeet Leger PA-C Work Phone: [facility] 08-25-2022 12:54-0400 Heart rate 58 /min Sumeet Leger PA-C Work Phone: [facility] 08-25-2022 12:54-0400 SaO2% (BldA) [Mass fraction] 100 % Sumeet Leger PA-C Work Phone: [facility] 08-25-2022 12:54-0400 Systolic blood pressure 128 mm[Hg] Sumeet Leger PA-C Work Phone: [facility] 06-26-2022 14:09-0400 Body height 152.[address] Jerrica Marshall Work Phone: [facility] 06-26-2022 14:09-0400 Body mass index (BMI) [Ratio] 21.2 kg/m2 Dr. Jerrica Marshall Work Phone: [facility] 06-26-2022 14:09-0400 Body temperature 98.2 [degF] Dr. Jerrica Marshall Work Phone: [facility] 06-26-2022 14:09-0400 Body weight 49.[address] Jerrica Marshall Work Phone: [facility] 06-26-2022 14:09-0400 Diastolic blood pressure 80 mm[Hg] Dr. Jerrica Marshall Work Phone: [facility] 06-26-2022 14:09-0400 Heart rate 95 /min Dr. Jerrica Marshall Work Phone: [facility] 06-26-2022 14:09-0400 Respiratory rate 12 /min Dr. Jerrica Marshall Work Phone: [facility] 06-26-2022 14:09-0400 SaO2% (BldA) [Mass fraction] 97 % Dr. Jerrica Marshall Work Phone: [facility] 06-26-2022 14:09-0400 Systolic blood pressure 124 mm[Hg] Dr. Jerrica Marshall Work Phone: [facility] 05-26-2022 14:10-0400 Body height 147.3 cm Bryanna Gayatri 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 Work Phone: [facility] 05-26-2022 14:10-0400 Body weight 48 kg Bryanna Gayatri 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 Work Phone: [facility] 05-26-2022 14:10-0400 Diastolic blood pressure 74 mm[Hg] Bryanna Gayatri 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 Work Phone: [facility] 05-26-2022 14:10-0400 Heart rate 71 /min Bryanna Gayatri 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 Work Phone: [facility] 05-26-2022 14:10-0400 Respiratory rate 16 /min Bryanna Gayatri 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 Work Phone: [facility] 05-26-2022 14:10-0400 SaO2% (BldA) [Mass fraction] 97 % Bryanna Webber APRN.TOWER CRANE OPERATOR Work Phone: [facility] 05-26-2022 14:10-0400 Systolic blood pressure 116 mm[Hg] Bryanna Webber APRN.TOWER CRANE OPERATOR Work Phone: [facility] 05-07-2022 12:54-0400 Body temperature 97.2 [degF] Dr. Jerrica Marshall Work Phone: [facility] 05-07-2022 12:54-0400 Body weight 46.[address] Jerrica Marshall Work Phone: [facility] 05-07-2022 12:54-0400 Diastolic blood pressure 66 mm[Hg] Dr. Jerrica Marshall Work Phone: [facility] 05-07-2022 12:54-0400 Heart rate 110 /min Dr. Jerrica Marshall Work Phone: [facility] 05-07-2022 12:54-0400 Respiratory rate 18 /min Dr. Jerrica Marshall Work Phone: [facility] 05-07-2022 12:54-0400 SaO2% (BldA) [Mass fraction] 97 % Dr. Jerrica Marshall Work Phone: [facility] 05-07-2022 12:54-0400 Systolic blood pressure 106 mm[Hg] Dr. Jerrica Marshall Work Phone: [facility] 04-28-2022 10:29-0400 Body height 152.[address] Jerrica Marshall Work Phone: [facility] 04-28-2022 10:29-0400 Body mass index (BMI) [Ratio] 20.3 kg/m2 Dr. Jerrica Marshall Work Phone: [facility] 04-28-2022 10:29-0400 Body temperature 97.8 [degF] Dr. Jerrica Marshall Work Phone: [facility] 04-28-2022 10:29-0400 Body weight 47.[address] Jerrica Marshall Work Phone: [facility] 04-28-2022 10:29-0400 Diastolic blood pressure 99 mm[Hg] Dr. Jerrica Marshall Work Phone: [facility] 04-28-2022 10:29-0400 Heart rate 105 /min Dr. Jerrica Marshall Work Phone: [facility] 04-28-2022 10:29-0400 Respiratory rate 18 /min Dr. Jerrica Marshall Work Phone: [facility] 04-28-2022 10:29-0400 SaO2% (BldA) [Mass fraction] 97 % Dr. Jerrica Marshall Work Phone: [facility] 04-28-2022 10:29-0400 Systolic blood pressure 128 mm[Hg] Dr. Jerrica Marshall Work Phone: [facility] 01-06-2022 14:41-0500 Body temperature 97.4 [degF] Dr. Jerrica Marshall Work Phone: [facility] 01-06-2022 14:41-0500 Body weight 42.[address] Jerrica Marshall Work Phone: [facility] 01-06-2022 14:41-0500 Diastolic blood pressure 74 mm[Hg] Dr. Jerrica Marshall Work Phone: [facility] 01-06-2022 14:41-0500 Heart rate 112 /min Dr. Jerrica Marshall Work Phone: [facility] 01-06-2022 14:41-0500 Respiratory rate 16 /min Dr. Jerrica Marshall Work Phone: [facility] 01-06-2022 14:41-0500 SaO2% (BldA) [Mass fraction] 112 % Dr. Jerrica Marshall Work Phone: [facility] 01-06-2022 14:41-0500 Systolic blood pressure 102 mm[Hg] Dr. Jerrica Marshall Work Phone: [facility] 12-11-2021 09:55-0400 Body height 152.[address] Jerrica Marshall Work Phone: [facility] Work Phone: 12-11-2021 09:55-0400 Body mass index (BMI) [Ratio] 18.4 kg/m2 Dr. Jerrica Marshall Work Phone: [facility] Work Phone: 12-11-2021 09:55-0400 Body temperature 98 [degF] Dr. Jerrica Marshall Work Phone: [facility] Work Phone: 12-11-2021 09:55-0400 Body weight 42.[address] Jerrica Marshall Work Phone: [facility] Work Phone: 12-11-2021 09:55-0400 Diastolic blood pressure 80 mm[Hg] Dr. Jerrica Marshall Work Phone: [facility] Work Phone: 12-11-2021 09:55-0400 Heart rate 78 /min Dr. Jerrica Marshall Work Phone: [facility] Work Phone: 12-11-2021 09:55-0400 Respiratory rate 14 /min Dr. Jerrica Marshall Work Phone: [facility] Work Phone: 12-11-2021 09:55-0400 SaO2% (BldA) [Mass fraction] 100 % Dr. Jerrica Marshall Work Phone: [facility] Work Phone: 12-11-2021 09:55-0400 Systolic blood pressure 122 mm[Hg] Dr. Jerrica Marshall Work Phone: [facility] Work Phone: 11-06-2021 14:56-0400 Body mass index (BMI) [Ratio] 18.5 kg/m2 Dr. Jerrica Marshall Work Phone: [facility] Work Phone: 11-06-2021 14:56-0400 Body weight 43.[address] Jerrica Marshall Work Phone: [facility] Work Phone: 11-06-2021 14:56-0400 Diastolic blood pressure 88 mm[Hg] Dr. Jerrica Marshall Work Phone: [facility] Work Phone: 11-06-2021 14:56-0400 Systolic blood pressure 120 mm[Hg] Dr. Jerrica Mrashall Work Phone: [facility] Work Phone: 10-30-2021 11:17-0400 Body mass index (BMI) [Ratio] 18.5 kg/m2 Dr. Jerrica Marshall Work Phone: [facility] Work Phone: 10-30-2021 11:17-0400 Body temperature 98.1 [degF] Dr. Jerrica Marshall Work Phone: [facility] Work Phone: 10-30-2021 11:17-0400 Body weight 43.[address] Jerrica Marshall Work Phone: [facility] Work Phone: 10-30-2021 11:17-0400 Diastolic blood pressure 64 mm[Hg] Dr. Jerrica Marshall Work Phone: [facility] Work Phone: 10-30-2021 11:17-0400 Heart rate 61 /min Dr. Jerrica Marshall Work Phone: [facility] Work Phone: 10-30-2021 11:17-0400 Respiratory rate 16 /min Dr. Jerrica Marshall Work Phone: [facility] Work Phone: 10-30-2021 11:17-0400 SaO2% (BldA) [Mass fraction] 99 % Dr. Jerrica Marshall Work Phone: [facility] Work Phone: 10-30-2021 11:17-0400 Systolic blood pressure 98 mm[Hg] Dr. Jerrica Marshall Work Phone: [facility] Work Phone: 09-23-2021 13:50-0400 Body height 152.[address] Jerrica Marshall Work Phone: [facility] Work Phone: 09-23-2021 13:50-0400 Body mass index (BMI) [Ratio] 19.1 kg/m2 Dr. Jerrica Marshall Work Phone: [facility] Work Phone: 09-23-2021 13:50-0400 Body temperature 97.1 [degF] Dr. Jerrica Marshall Work Phone: [facility] Work Phone: 09-23-2021 13:50-0400 Body weight 44.[address] Jerrica Marshall Work Phone: [facility] Work Phone: 09-23-2021 13:50-0400 Diastolic blood pressure 62 mm[Hg] Dr. Jerrica Marshall Work Phone: [facility] Work Phone: 09-23-2021 13:50-0400 Heart rate 83 /min Dr. Jerrica Marshall Work Phone: [facility] Work Phone: 09-23-2021 13:50-0400 Respiratory rate 14 /min Dr. Jerrica Marshall Work Phone: [facility] Work Phone: 09-23-2021 13:50-0400 SaO2% (BldA) [Mass fraction] 98 % Dr. Jerrica Marshall Work Phone: [facility] Work Phone: 09-23-2021 13:50-0400 Systolic blood pressure 102 mm[Hg] Dr. Jerrica Marshall Work Phone: [facility] Work Phone: 08-13-2021 13:56-0400 Body height 152.[address] Jerrica Marshall Work Phone: [facility] Work Phone: 08-13-2021 13:56-0400 Body mass index (BMI) [Ratio] 18.6 kg/m2 Dr. Jerrica Marshall Work Phone: [facility] Work Phone: 08-13-2021 13:56-0400 Body temperature 98.4 [degF] Dr. Jerrica Marshall Work Phone: [facility] Work Phone: 08-13-2021 13:56-0400 Body weight 43.[address] Jerrica Marshall Work Phone: [facility] Work Phone: 08-13-2021 13:56-0400 Diastolic blood pressure 66 mm[Hg] Dr. Jerrica Marshall Work Phone: [facility] Work Phone: 08-13-2021 13:56-0400 Heart rate 85 /min Dr. Jerrica Marshall Work Phone: [facility] Work Phone: 08-13-2021 13:56-0400 Respiratory rate 14 /min Dr. Jerrica Marshall Work Phone: [facility] Work Phone: 08-13-2021 13:56-0400 SaO2% (BldA) [Mass fraction] 98 % Dr. Jerrica Marshall Work Phone: [facility] Work Phone: 08-13-2021 13:56-0400 Systolic blood pressure 110 mm[Hg] Dr. Jerrica Marshall Work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 Start: 10-17-2024 End: 11-08-2024 Discharged Recurring Discharged Recurring -[employer] Work Phone: Start: 10-10-2024 Influenza vaccination Influenza Vacc ine (#1) [facility] Start: 10-05-2024 Venous catheter care management [facility] Start: 09-27-2024 End: 09-27-2024 Patient encounter procedure 09/27/2024 11:00 AM EDT Office Visit [facility] [address] [place] [address] Valorie Oh, 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 [address] [place] [address] Osteoporosis 6 month follow up [facility] Comment on above: Osteoporosis 6 month follow up Start: 09-22-2024 Egd transoral biopsy single/multiple EGD BIOPSY SINGLE/MULTIPLE [facility] Start: 09-22-2024 [facility] Start: 09-22-[address] [facility] Start: 08-27-2024 Hepatic function panel [facility] Start: 08-27-2024 Triacylglycerol lipa se measurement [facility] Start: 06-29-2024 [facility] Start: 03-30-2024 Venous catheter care management [facility] Start: 03-30-2024 [facility] Start: 01-12-2024 Venous catheter care management [facility] Start: 11-30-2023 End: 11-30-2023 Patient encounter procedure 11/30/2023 11:00 AM EDT Office Visit [facility] [address] [place] [address] Valorie Oh APRN.TOWER CRANE OPERATOR [address] [place] [address] osteo 2 months follow-up [facility] Comment on above: osteo 2 months follo w-up Start: 11-13-2023 End: 11-13-2023 Patient encounter procedure 11/13/2023 12:30 PM EDT Appointment Radiology [address] [place] [id number] Age-related osteoporosis with current pathological fracture with routine healing... Radiology Comment on above: Age-related osteopor osis with current pathological fracture with routine healing... Start: 10-11-2023 Covid-19 Vaccine ( season) Covid-19 Vaccine () [facility] Start: 10-11-2023 Influenza vaccination Influenza Vacc ine (#1) [facility] Start: 09-28-2023 End: 12-28-2023 25-hydroxyvitamin D3 [Mass/volume] in Serum or Plasma [facility] Work Phone: Comment on above: Expected: 09/28/2023 , Expires: 12/28/2023 Start: 09-28-2023 End: 09-28-2023 Patient encounter procedure 09/28/2023 10:00 AM EDT Office Visit [facility] [address] [place] [address] Valorie Oh, 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 [address] [place] [address] CONSULT TO OSTEOPOROSIS/ Osteoporosis, unspecified osteoporosis type, unspecified pathological fracture p. [facility] Comment on above: CONSULT TO OSTEOPORO SIS/ Osteoporosis, unspecified osteoporosis type, unspecified pathological fracture p. Start: 09-21-2023 End: 09-21-2023 Follow-up encounter 09/21/2023 2:45 PM EDT [facility] [address] [address] [place] [id number] Rosio Butterfield I, MD [address] [place], [place] [id number] 1 week follow up [facility] Comment on above: 1 week follow up Start: 09-14-2023 End: 12-14-2023 C reactive protein [Mass/volume] in Serum or Plasma C-REACTIVE PROTEIN Lab Routine Chronic neck pain History of wound infection Expected: 09/14/2023, Expires: 12/14/2023 [facility] Work Phone: Comment on above: Expected: 09/14/2023 , Expires: 12/14/2023 Start: 09-14-2023 End: 12-14-2023 CBC W Auto Differential panel - Blood COMPLETE BLOOD COUNT AND DIFFERENTIAL Lab Routine Chronic neck pain History of wound infection Expected: 09/14/2023, Expires: 12/14/2023 [facility] Comment on above: Expected: 09/14/2023 , Expires: 12/14/2023 Start: 09-14-2023 End: 12-14-2023 Erythrocyte sedimentation rate SEDIMENTATION RATE, WESTERGREN Lab Routine Chronic neck pain History of wound infection Expected: 09/14/2023, Expires: 12/14/2023 [facility] Comment on above: Expected: 09/14/2023 , Expires: 12/14/2023 Start: 09-14-2023 End: 09-14-2023 Patient encounter procedure RADIO CT SCAN [facility] [employer] Comment on above: Arthrodesis status [ Z98.1] CT CERVICAL & THORAC IC WO Start: 03-10-2023 Procedure [facility] Start: 02-09-2023 Depression Assessment Depression Ass essment [facility] Start: 10-10-2022 Covid-19 Vaccine ( season) Covid-19 Vaccine ( season) [facility] Start: 10-10-2022 Influenza vaccination [facility] Start: 09-11-2022 Procedure [facility] Start: 09-05-2022 Screening for malign ant neoplasm of breast Mamm[facility] Start: 05-07-2022 Patient referral [facility] Work Phone: Start: 02-09-2022 DEPRESSION ASSESSMENT DEPRESSION ASS ESSMENT [facility] Start: 12-11-2021 Sars-cov-2 detection by dna/rna SARS-COV-2 COVID-19 AMP PRB [facility] Work Phone: Start: 08-13-2021 Patient referral [facility] Work Phone: Start: 07-03-2021 Colonoscopy flx dx w/collj spec when pfrmd DIAGNOSTIC COLONOSCOPY [facility] Work Phone: Start: 07-03-2021 Egd transoral biopsy single/multiple EGD BIOPSY SINGLE/MULTIPLE [facility] Work Phone: Start: 07-03-2021 [facility] Work Phone: Start: 05-09-2021 [facility] Start: 2019 RSV Vaccine (1 - 1-d ose 60+ series) RSV Vaccine (1 - 1-dose 60+ series) [facility] Start: 2019 RSV vaccine (optiona l 60+ years) RSV vaccine (optional 60+ years) [facility] Start: 10-31-2009 Pneumococcal Vaccine : 50+ (1 of 1 - PCV) Pneumococcal Vaccine: 50+ (1 of 1 - PCV) [facility] Start: 10-31-2009 Shingles (RZV) Vacci ne (1 of 2) Shingles (RZV) Vaccine (1 of 2) [facility] Start: 10-31-2009 SHINGRIX VACCINE (1 of 2) SHINGRIX VACCINE (1 of 2) [facility] Start: 10-31-2004 Cholesterol [Mass/volume] in Serum or Plasma Cholesterol [facility] Start: 10-31-2004 COLOGUARD (FIT-DNA) COLOGUARD (FIT-D NA) [facility] Start: 10-31-2004 Colonoscopy COLONOSCOPY [facility] Start: 10-31-2004 COLORECTAL CANCER SCREENING COLORECTAL CANCER SCREENING [facility] Start: 10-31-[address] COLONOGRAPHY [facility] Start: 10-31-2004 FECAL OCCULT BLOOD FECAL OCCULT BLOO D [facility] Start: 10-31-2004 Lipid 1996 panel - S katharina or Plasma Lipid Screening [facility] Start: 10-31-2004 Lipid panel Lipid Screening [facility] Start: 10-31-2004 LIPID SCREEN LIPID SCREEN [facility] Start: 10-31-2004 Screening for malign ant neoplasm of colon [facility] Start: 10-31-2004 [facility] Start: 1999 Mammography [facility] Start: 1999 Screening for malign ant neoplasm of breast Mammogram Screening [facility] Start: 10-31-1989 HPV TESTING HPV TESTING [facility] Start: 10-31-1989 Screening for malign ant neoplasm of cervix HPV Testing [facility] Start: 10-31-1980 PAP TESTING PAP TESTING [facility] Start: 10-31-1980 [facility] Start: 10-31-1978 Urine microalbumin profile [facility] Start: 10-31-1977 Anxiety Screening Anxiety Screening [facility] Start: 10-31-1977 Depression Screening Depression Scre ening [facility] Start: 10-31-1977 HEPATITIS C SCREENING HEPATITIS C SC REENING [facility] Start: 10-31-1977 [facility] Start: 10-31-[address] HIV [address] [facility] Start: 10-31-1977 HIV screening HIV Screening [facility] Start: 10-31-1977 Tetanus + diphtheria + acellular pertussis vaccine (product) Tdap Booster [facility] Start: 10-31-1974 HIV screening HIV Test [facility] Start: 04-30-1960 COVID-19 VACCINE (#1) COVID-19 VACCI NE (#1) [facility] Start: 1959 Screening for malign ant neoplasm of colon Colonoscopy [facility] End: 10-27-2024 BD DXA TRABECULAR BONE SCORE (TBS) BD DXA TRABECULAR BONE SCORE (TBS) Radiology Routine Age-related osteoporosis with current pathological fracture with routine healing, subsequent encounter Encounter for screening for osteoporosis Asymptomatic postmenopausal status 1 Occurrences starting 09/28/2023 until 10/27/2024 [facility] Comment on above: 1 Occurrences starti ng 09/28/2023 until 10/27/2024 End: 01-06-2023 Blood typing serologic abo ABO RH TYPE Lab STAT One time for 1 Occurrences starting 01/06/2023 until 01/06/2023 [facility] Comment on above: One time for 1 Occur rences starting 01/06/2023 until 01/06/2023 CBC W Auto Different ial panel - Blood [facility] CBC W Auto Different ial panel - Blood [facility] metabo lic 1999 panel - Serum or Plasma [facility] metabo lic 1999 panel - Serum or Plasma [facility] CT Abdomen and Pelvi s W contrast IV [facility] End: 10-02-2024 CT Cervical spine WO contrast CT CERVICAL SPINE WO IVCON Radiology Routine Arthrodesis status Spinal stenosis of cervical region 1 Occurrences starting 09/03/2023 until 10/02/2024 [facility] Work Phone: Comment on above: 1 Occurrences starti ng 09/03/2023 until 10/02/2024 CT Cervical spine WO contrast CT CERVICAL SPINE WO IVCON Radiology Routine Arthrodesis status Spinal stenosis of cervical region 09/14/2023 8:55 AM EDT [facility] Work Phone: End: 10-02-2024 CT Thoracic spine WO contrast CT THORACIC SPINE WO IVCON Radiology Routine Arthrodesis status History of thoracic spinal fusion Chronic midline thoracic back pain 1 Occurrences starting 09/03/2023 until 10/02/2024 [facility] Comment on above: 1 Occurrences starti ng 09/03/2023 until 10/02/2024 CT Thoracic spine WO contrast CT THORACIC SPINE WO IVCON Radiology Routine Arthrodesis status History of thoracic spinal fusion Chronic midline thoracic back pain 09/14/2023 8:55 AM EDT [facility] End: 10-27-2024 DXA Skeletal system.axial Views for bone density and vertebral fracture DXA-AXIAL SKELETON WITH VFA Radiology Routine Age-related osteoporosis with current pathological fracture with routine healing, subsequent encounter Encounter for screening for osteoporosis Asymptomatic postmenopausal status 1 Occurrences starting 09/28/2023 until 10/27/2024 [facility] Comment on above: 1 Occurrences starti ng 09/28/2023 until 10/27/2024 DXA Skeletal system.axial Views for bone density and vertebral fracture DXA-AXIAL SKELETON WITH VFA Radiology Routine Age-related osteoporosis with current pathological fracture with routine healing, subsequent encounter Encounter for screening for osteoporosis Asymptomatic postmenopausal status 11/13/2023 1:37 PM EDT [facility] Work Phone: End: 10-27-2024 DXA-FOREARM SKELETON DXA-FOREARM SKELETON Radiology Routine Age-related osteoporosis with current pathological fracture with routine healing, subsequent encounter Encounter for screening for osteoporosis Asymptomatic postmenopausal status 1 Occurrences starting 09/28/2023 until 10/27/2024 [facility] Comment on above: 1 Occurrences starti ng 09/28/2023 until 10/27/2024 DXA-FOREARM SKELETON DXA-FOREARM SKELETON Radiology Routine Age-related osteoporosis with current pathological fracture with routine healing, subsequent encounter Encounter for screening for osteoporosis Asymptomatic postmenopausal status 11/13/2023 1:37 PM EDT [facility] Ferritin [Mass/volum e] in Serum or Plasma [facility] Folate [Moles/volume ] in Serum or Plasma [facility] End: 01-06-2023 HIV 1 and 2 Ab and HIV 1 p24 Ag panel - Serum or Plasma by Immunoassay [employer] [facility] [facility] Comment on above: One time for 1 Occur rences starting 01/06/2023 until 01/06/2023 End: 01-06-2023 Introduction needle/intracatheter vein IV INSERTION Procedures Routine One time for 1 Occurrences starting 01/06/2023 until 01/06/2023 [facility] [employer] Work Phone: Comment on above: One time for 1 Occur rences starting 01/06/2023 until 01/06/2023 Iron and Iron bindin g capacity panel - Serum or Plasma [facility] Lactate dehydrogenas e measurement [facility] Lactate dehydrogenas e measurement [facility] Patient Education [facility] Work Phone: Patient referral [facility] Work Phone: PT Unspecified body region [facility] End: 2023 Radex spine lumbosacral minimum 4 views XR LUMBAR MOTION 4V AP/LAT/ FLEX/EXT Radiology Routine S/P hardware removal 1 Occurrences starting 10/02/2022 until 2023 [facility] Work Phone: Comment on above: 1 Occurrences starti ng 10/02/2022 until 2023 Radex spine lumbosac ral minimum 4 views XR LUMBAR MOTION 4V AP/LAT/ FLEX/EXT Radiology Routine S/P hardware removal 11/19/2022 10:48 AM EDT [facility] Work Phone: End: 2023 Radex spine thoracic 2 views XR THORACIC LIMITED 2V AP/LAT Radiology Routine S/P hardware removal 1 Occurrences starting 10/02/2022 until 2023 [facility] Work Phone: Comment on above: 1 Occurrences starti ng 10/02/2022 until 2023 Radex spine thoracic 2 views XR THORACIC LIMITED 2V AP/LAT Radiology Routine S/P hardware removal 10/08/2022 10:40 AM EDT [facility] Work Phone: Radionuclide gastric emptying study [facility] End: 01-06-2023 TYPE AND SCREEN [facility] Comment on above: One time for 1 Occur rences starting 01/06/2023 until 01/06/2023 XR Chest PA and Lateral [facility] End: 01-06-2023 XR Pelvis and Hip - left Views [facility] Comment on above: One time, now for 1 Occurrences starting 01/06/2023 until 01/06/2023 End: 10-02-2024 XR Thoracic and lumbar spine Views for scoliosis W standing XR SCOLIOSIS PA STAND/LAT 2V Radiology Routine Arthrodesis status History of thoracic spinal fusion Chronic midline thoracic back pain 1 Occurrences starting 09/03/2023 until 10/02/2024 [facility] Comment on above: 1 Occurrences starti ng 09/03/2023 until 10/02/2024 XR Thoracic and lumb ar spine Views for scoliosis W standing XR SCOLIOSIS PA STAND/LAT 2V Radiology Routine Arthrodesis status History of thoracic spinal fusion Chronic midline thoracic back pain 09/08/2023 9:45 AM EDT [facility] Work Phone: [facility] [place] [facility] Immunizations Immunization Date Immunization Notes Care Provider Samy shabazz 10-19-[address] Jerrica Marshall Work Phone: [facility] 10-19-2019 influenza virus vaccine, unspecified formulation Esteban Joel DO Work Phone: [facility] Payers Date Payer Category Payer Medicare [id number] 2023 Self-pay [id number] 2023 Medicare [id number] 2023 Unknown [id number] 2023 Unknown [id number] 2023 Unknown [id number] 2022 Medicaid [id number] 2022 Medicaid [id number] 1959 Unknown [id number] 2.16.8 40.1.436079.3.579.2.598 1959 Unknown [id number] 2.16.8 40.1.408614.3.579.2.598 1959 Unknown [id number] 2.16.8 40.1.049954.3.579.2.598 1959 Unknown [id number] 2.16.8 40.1.408705.3.579.2.598 1959 Unknown [id number] 2.16.8 40.1.925623.3.579.2.598 1959 Unknown [id number] 2.16.8 40.1.401260.3.579.2.598 1959 Unknown [id number] 2.16.8 40.1.946238.3.579.2.598 1959 Unknown [id number] 2.16. 840.1.303080.3.579.2.732 1959 Unknown [id number] 2.16. 840.1.036351.3.579.2.732 1959 Medicaid [id number] Unknown [id number] 2.16.8 40.1.739363.3.579.2.462 Unknown [id number] 2.16.8 40.1.567240.3.579.2.462 Unknown [id number] 2.16.8 40.1.629063.3.579.2.462 Unknown [id number] 2.16.8 40.1.197062.3.579.2.462 Unknown [id number] 2.16.8 40.1.048809.3.579.2.462 Unknown [id number] 2.16.8 40.1.813527.3.579.2.462 Unknown [id number] 2.16.8 40.1.136244.3.579.2.462 Unknown [id number] 2.16.8 40.1.870931.3.579.2.462 Unknown [id number] 2.16.8 40.1.708424.3.579.2.462 Unknown [id number] 2.16.8 40.1.199880.3.579.2.462 Unknown [id number] 2.16.8 40.1.959977.3.579.2.462 Unknown [id number] 2.16.8 40.1.505190.3.579.2.462 Unknown [id number] 2.16.8 40.1.488192.3.579.2.462 Unknown [id number] 2.16.8 40.1.271838.3.579.2.462 Unknown [id number] 2.16.8 40.1.742227.3.579.2.462 Unknown [id number] 2.16.8 40.1.223055.3.579.2.462 Unknown [id number] 2.16.8 40.1.078762.3.579.2.462 Unknown [id number] 2.16.8 40.1.219846.3.579.2.462 Unknown [id number] 2.16.8 40.1.130375.3.579.2.462 Unknown [id number] 2.16.8 40.1.199832.3.579.2.462 Unknown [id number] 2.16.8 40.1.354739.3.579.2.462 Unknown [id number] 2.16.8 40.1.929703.3.579.2.462 Unknown [id number] 2.16.8 40.1.965418.3.579.2.462 Unknown [id number] 2.16.8 40.1.511112.3.579.2.462 Unknown [id number] 2.16.8 40.1.243223.3.579.2.462 Unknown [id number] 2.16.8 40.1.546237.3.579.2.462 Unknown [id number] 2.16.8 40.1.498347.3.579.2.462 Unknown [id number] 2.16.8 40.1.129466.3.579.2.462 Unknown [id number] 2.16.8 40.1.726366.3.579.2.462 Unknown [id number] 2.16.8 40.1.805389.3.579.2.462 Unknown [id number] 2.16.8 40.1.467640.3.579.2.462 Unknown [id number] 2.16.8 40.1.987585.3.579.2.462 Unknown [id number] 2.16.8 40.1.340166.3.579.2.462 Unknown [id number] 2.16.8 40.1.356942.3.579.2.462 Unknown [id number] 2.16.8 40.1.921039.3.579.2.462 Social History Date Type Detail Facility Start: 04-18-2021 End: 05-12-2023 Tobacco smoking status NEIS Unknown if ever smoked [facility] Start: 1960 Sex Assigned At Female [facility] Start: 05-26-2022 End: 10-21-2024 Tobacco smoking status NHIS Ex-smoker [facility] Start: 08-09-1976 End: 08-09-1996 History of tobacco use Current smoker [facility] Start: 08-09-1976 End: 08-09-1996 History of tobacco use Cigarette Smoker [facility] Start: 05-26-2022 End: 03-28-2024 Cigarettes smoked current (pack per day) - Reported 0.5 [facility] Start: 05-26-2022 Tobacco use and exposure Former smokeless tobacco user [facility] Start: 05-26-2022 End: 09-08-2022 Alcohol intake Current drinker of alcohol (finding) [facility] Start: 06-21-2012 Alcohol Comment occasionally [facility] Start: 1960 Sex Assigned At Not on file C [facility] Start: 05-26-2022 End: 03-28-2024 Tobacco use panel [facility] Start: 06-01-2012 Adult Depression Screening Assessment 0 [facility] Start: 10-08-2022 End: 09-27-2024 Alcohol intake Ex-drinker (finding) [facility] Medical Equipment Procedure Code Equipment Code Equipment Origin al Text Equipment Identifier Dates Insertion, vascular access port [id number]) Vascular port/catheter [id number] FDA Start: 01-04-2024 Substitute Proge nix Plus Demineralized Bone Matrix Bovine Collagen Bone - [id number] Start: 04-15-2017 Connector Kindra 3 Titanium 43-54mm Lucio Multiaxial Cross Thoracolumbar Spine - [id number] Start: 04-15-2017 Lucio Kindra 6mm Ena nium 480mm Spinal Compression - [id number] Start: 04-15-2017 Spacer Avs Navig ator 4d Hollow Peek Tantalum 26x9mm Spinal Radiopaque Tlif - [id number] Start: 04-15-2017 Substitute Proge nix Plus Demineralized Bone Matrix Bovine Collagen Bone - [id number] Start: 04-15-2017 Substitute Proge nix Plus Demineralized Bone Matrix Bovine Collagen Bone - [id number] Start: 04-15-2017 Substitute Proge nix Plus Demineralized Bone Matrix Bovine Collagen Bone - [id number] Start: 04-15-2017 Qdc-Zw-Y-Kind Im plant - [id number] Start: 04-15-2017 Screw Kindra 3 Ena nium Set Jaz Spine - [id number] Start: 04-15-2017 Goals Date Patient Goal Desired Activity /State Functional Status Date Assessment Result Facility 08-28-2022 Are you deaf, or do you have serious difficulty hearing No 08/28/2022 1:32 PM EDDominique Crouch RN No [facility] 08-28-2022 Are you blind, or do you have serious difficulty seeing, even when wearing glasses No 08/28/2022 1:32 PM Dominique John, BRIDGETTE No [facility] 08-28-2022 Do you have serious difficulty walking or climbing stairs Yes 08/28/2022 1:32 PM Dominique John, BRIDGETTE Yes [facility] 08-28-2022 Do you have difficul ty dressing or bathing Yes 08/28/2022 1:32 PM Dominique John, BRIDGETTE Yes [facility] 08-28-2022 Because of a physica l, mental, or emotional condition, do you have difficulty doing errands alone such as visiting a physician's office or shopping Yes 08/28/2022 1:32 PM Dominique John RN Yes [facility] Mental Status Date Assessment Result Facility 11-04-2024 Cognitive function Voice/Name [facility] Work Phone: 09-22-2024 Cognitive function Voice/Name [facility] Work Phone: 02-15-2024 Cognitive function Voice/Name [facility] Work Phone: 08-28-2022 Because of a physica l, mental, or emotional condition, do you have serious difficulty concentrating, remembering, or making decisions Yes 08/28/2022 1:32 PM Dominique John, BRIDGETTE Yes [facility] 07-03-2021 Cognitive function Voice/Name [facility] Work Phone: Clinical Notes 06-21-2012 to 10-06-2024 Valorie Oh APRN.TOWER CRANE OPERATOR - 09/27/2024 11:00 AM EDT Note Date & Type Note Facility 10-06-2024 Radiology Diagnostic study note [facility] Imaging Services [address] [place] [address] Abdomen/Pelvis WITH Contrast MR#: [id number] Acct: [id number] Name: MARY VALIENTE Rep #: [id number] : 1960 F 63 From: Ned Dooley MD PCP: Dr. Jerrica Marshall MD Status: R EG CLI Study:Abdomen/Pelvis WITH Contrast Date of Ex am: 10/05/24 Exam# [id number] Ordering Dr: Marcos Brown PARA MACHINE OPERATOR-C PROCEDURE: ABDOMEN/PELVIS WITH CONTRAST 10/05/2024 [...] WITH Contrast IMPRESSION: Stable examination. Reading Location: [id number] CC: NIMO Brown; Dr. Jerrica Marshall MD ~ Swimming Pool Installer: Signed [facility] 09-27-2024 History of Present illness Narrative Images from the original note were not included. ENDOCRINE REFERRAL Osteoporosis and Metabolic Bone Disease Follow up Visit [facility] Endocrinology - [place] [address], [address] [place] [address] SUBJECTIVE: LAST SEEN: 03/28/2024 INITIAL EVALUATION: 09/28/2023 Diagnosed with osteopenia/osteoporosis 09/05/2021 Patient seen at the request of / referral from: Rosio Butterfield I, MD [facility] CHIEF COMPLAINT: Patient presents for osteopenia/osteoporosis management History of Present Illness Mary Valiente is a 62 year old female who presents in referral for my opinion regarding evaluation and management of osteoporosis. Patient was referred by Rosio Butterfield I, MD [facility]. Patient stated that she has screws loose in her back and she has a lot of pain because of that. She is not felling good at all. Patient went to ER yesterday at [facility] for stomach pain. Patient is on treatment with Prolia injection for the past 1.5 years started by her PCP. She had 3 doses so far, tolerates medication well. Last dose 08/10/2023. Never had any fracture in the past. She has a new compression fracture on C7 - Multiple thoracolumbar spinal fusions. Non hodgkin's lymphoma. [facility]ENTER PHONE NUMBER: [phone] FOLLOW UP VISIT: 09/27/2024 Patient seen in [...] DXA DUE: 11/13/2025 11/13/2023 DXA: AXIAL SKELETON [facility] IMPRESSION: THE LOWEST T-SCORE [...] Hip Fracture: 2.6% 09/05/2021 DXA: AXIAL SKELETON [facility] MAJOR RISK FACTORS FOR OSTEOPOROSIS: High risk [...] No history of dysuria, frequency or incontinence MANAGING BROKER: Negative for abnormal vaginal bleeding, abnormal vaginal [...] far for her to drive. Valorie Oh APRN.TOWER CRANE OPERATOR Dept of Endocrinology September 27, 2024 Any [...] Drug use: No documented in this encounter [facility] 09-22-2024 Consult note Note Date/Time September 22, 2024 10:12am [facility] Medical Records Department [address] [place] [address] Pre-Anesthesia Evaluation 09/22/24 1003 MR#: [id number] Acct: [id number] Name: MARY VALIENTE Rep #:[id number] : 1960 63 From: Anjel Olmos MD PCP: Dr. Jerrica Marshall MD Status:R EG [facility] Y Race: C Location: [place] [address] ASA Classification* ASA Classification ASA Classification: 3 [...] Procedure(s): EGD Anesthesia History Anesthesia History - hogshead cooper: Anesthesia History - hogshead cooper Hx Hospitalization No 09/21/24 11:58 Any Problems [...] had half of aPercocet. PONV PONV - hogshead cooper: PONV - hogshead cooper Female Yes 09/21/24 11:58 HX of Motion [...] 09/22/24 09:38 Respiratory Assessment Respiratory Assessment - hogshead cooper: Respiratory Tract Infection Hx - hogshead cooper Hx Respiratory Tract Infection No 09/21/24 11:58 STOP Sleep Apnea STOP Sleep Apnea - hogshead cooper: STOP Sleep Apnea - hogshead cooper Hx Hypertension No 09/21/24 11:58 Hx Sleep [...] 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 - hogshead cooper: Tobacco Use History - hogshead cooper Tobacco Use Smoking Status Former smoker 09/21/24 11:58 Hx Tobacco Use No 09/21/24 11:58 Years Smoking Packs Smoked per Day Smoking Cessation Date was No - quit smoking greater 09/21/24 11:58 within the last 15 years than 15 years ago Hx Smoking Cessation Date 02/09/79 09/21/24 11:58 Hx Smoking Cessation No 09/21/24 11:58 Counseling Hematologic Medial History Hematologic Hx - hogshead cooper: 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 Hx of Blood Transfusion No 09/21/24 11:58 [...] confused, unrespo /Reproduction History /Reproductive History - hogshead cooper: /Reproductive Hx- hogshead cooper Hx Now No 09/21/24 11:58 Gestational Age [...] MD Cosigner Signature: Date CC: ~ Signed [facility] Work Phone: 1(453) 326-972708-14-2025 History and physical note Author Skyla Schuster [facility] Note Date/Time September 22, 2024 10 :07am [facility] Medical Records Department [address] [place] [address] History & Physical Exam 09/22/24 1006 MR#: [id number] Acct: [id number] Name: MARY VALIENTE Rep #:[id number] : 1960 63 From: Skyla Ritchie PCP: Dr. Jerrica Marshall MD Status:R [facility] Location: [place] [address] History and Physical Date of Admission: 09/22/24 Date of Service: 09/14/24 MR#: [id number] Acct: [id number] Name: MARY VALIENTE Rep #: [id number] : 1960 Provider: Dr. Skyla Schuster MD Age/Sex: 63/F Location: [facility] Status: Signed Intake Vital Signs 08/22/2508:59 09/14/2513:42 [...] Chief Complaint: wt loss and epigastric pain Manager Merchandising Required: No Is patient in pain?: Yes [...] denosumab 60 mg/mL subcutaneous 60 mg subcut [id number] #1 mL 06/28/2408/03 Rx syringe (Prolia) tizanidine [...] Marshall MD; Dr. Skyla Schuster MD~ Signed [facility] Work Phone: 1(615) 721-898108-14-2025 Consult note [facility] Medical Records Department [address] [place] [address] Anesthesia Postop Eval I 09/22/24 1059 MR#: [id number] Acct: [id number] Name: MARY VALIENTE Rep #:[id number] : 1960 63 From: Zachariah Patel PCP: Dr. Jerrica Marshall MD Status:R [facility] Y Race: C Location: [place] [address] Anesthesia: Postop Eval I Current Vital Signs [...] Zachariah Marie Signature: Date CC: ~ Signed [facility]08-14-2025 Procedure note [facility] Medical Records Department [address] [place] [address] EGD Report MR#: [id number] Acct: [id number] Name: MARY VALIENTE Rep #:[id number] : 1960 63 From: Skyla Ritchie PCP: Dr. Jerrica Marshall MD Status:R [facility] Patient Name: Mary Valiente Procedure Date: 09/22/2024 [...] 1 week. Procedure Code(s): --- Professional --- 53614, Esophagogastroduodenoscopy, flexible, transoral; with biopsy, single or [...] in this report are preliminary and upon wafer fab technician review may be revised to meet current compliance requirements. Skyla Schuster MD 09/22/2024 10:56:44 AM This report has been signed electronically. Number of Addenda: 0 Note Initiated On: 09/22/2024 10:05 AM 09/22/24 1057 Date _ Skyla Schuster MD Cosigner Signature: Date (if indicated) CC: Dr. Jerrica Marshall MD; Dr. Skyla Schuster MD ~ Date Dictated: 09/22/24 1005 Date Transcribed: Swimming Pool Installer: ADAM Signed [facility]08-14-2025 Procedure note [facility] Medical Records Department [address] [place] [address] Provation Physician Letter MR#: [id number] Acct: [id number] Name: MARY VALIENTE Rep #:[id number] : 1960 63 From: Skyla Ritchie PCP: Dr. Jerrica Marshall MD Status:R [facility] 09/22/2024 Jerrica Marshall MD [address] [place] [address] Re : Upper GI endoscopy procedure for [...] 09/22/24 1057 Date _ Skyla Schuster MD [facility] Signature: Date (if indicated) CC: Dr. Jerrica Marshall MD; Dr. Skyla Schuster MD ~ Date Dictated: 09/22/24 1005 Date Transcribed: Swimming Pool Installer: ADAM Signed [facility]08-14-2025 Consult note [facility] Medical Records Department [address] [place] [address] Pre-Anesthesia Evaluation 09/22/24 100 MR#: [id number] Acct: [id number] Name: MARY VALIENTE Rep #:[id number] : 1960 63 From: Anjel Olmos MD PCP: Dr. Jerrica Marshall MD Status:R [facility] Y Race: C Location: [place] [address] ASA Classification* ASA Classification ASA Classification: 3 [...] Procedure(s): EGD Anesthesia History Anesthesia History - hogshead cooper: Anesthesia History - hogshead cooper Hx Hospitalization No 09/21/24 11:58 Any Problems [...] had half of aPercocet. PONV PONV - hogshead cooper: PONV - hogshead cooper Female Yes 09/21/24 11:58 HX of Motion [...] 09/22/24 09:38 Respiratory Assessment Respiratory Assessment - hogshead cooper: Respiratory Tract Infection Hx - hogshead cooper Hx Respiratory Tract Infection No 09/21/24 11:58 STOP Sleep Apnea STOP Sleep Apnea - hogshead cooper: STOP Sleep Apnea - hogshead cooper Hx Hypertension No 09/21/24 11:58 Hx Sleep [...] 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 - hogshead cooper: Tobacco Use History - hogshead cooper Tobacco Use Smoking Status Former smoker 09/21/24 11:58 Hx Tobacco Use No 09/21/24 11:58 Years Smoking Packs Smoked per Day Smoking Cessation Date was No - quit smoking greater 09/21/24 11:58 within the last 15 years than 15 years ago Hx Smoking Cessation Date 02/09/79 09/21/24 11:58 Hx Smoking Cessation No 09/21/24 11:58 Counseling Hematologic Medial History Hematologic Hx - hogshead cooper: 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 Jerrica Marshall MD Status:[facility] Location: [place] [address] History and Physical Date of Admission: 09/22/24 Date of Service: 09/14/24 MR#: [id number] Acct: [id number] Name: MARY VALIENTE Rep #: [id number] : 1960 Provider: Dr. Skyla Schuster MD Age/Sex: 63/F Location: [facility] Status: Signed Intake Vital Signs 08/22/2508:59 09/14/2513:42 [...] Chief Complaint: wt loss and epigastric pain Manager Merchandising Required: No Is patient in pain?: Yes [...] denosumab 60 mg/mL subcutaneous 60 mg subcut [id number] #1 mL 06/28/2408/03 Rx syringe (Prolia) tizanidine [...] Marshall MD; Dr. Skyla Schuster MD~ Signed [facility]08-14-2025 [facility]08-05-2025 Nuclear medicine Diagnostic study note [facility] Imaging Services [address] [place] [address] Gastric Emptying Study MR#: [id number] Acct: [id number] Name: MARY VALIENTE Rep #: [id number] : 1960 F 63 From: Casper Waters MD PCP: Dr. Jerrica Marshall MD Status: R EG CLI Study:Gastric Emptying Study Date of Exam: 09/13/24 Exam# [id number] Ordering Dr: Marcos Brown PARA MACHINE OPERATOR-C PROCEDURE: GASTRIC EMPTYING STUDY 09/13/2024 REASON FOR EXAM: EARLY SATIETY, FREQUENT NAUSEA. Prior cholecystectomy. COMPARISON: None TECHNIQUE: The patient ingested a semi-solid meal of oatmeal. There was no vomiting postprandially. Anterior and posterior planar images of the upper abdomen were obtained for a total of 60 minutes. Regions of interest were drawn, and a geometric mean was used to calculate a [id number]-hlkmj. Medications taken in the past 24 hours [...] semi solid phase gastric emptying. Reading Location: [place] [address] CC: NIMO Brown; Dr. Jerrica Marshall MD ~ Swimming Pool Installer: Signed [facility]07-14-2025 Evaluation note* Diagnosis Onset Date Resolution Status [...] abdominal pain chronic Se ptember 2024 10:18am [facility] Work Phone: 1(649) 539-386005-21-2025 Evaluation note* Diagnosis Onset Date Resolution Status [...] 2 025 9:37am Osteoporosis chronic October 9:37am [facility] Work Phone: 1(669) 647-115805-21-2025 [facility] [address] [place] [address] OFFICE VISIT Date of Service: 06/29/24 1017 MR#: [id number] Acct: [id number] Name: MARY VALIENTE Rep #: [id number] : 1960 From: Ernesto Jaramillo MD Age/Sex: 63/F Location: [facility] Status: Signed HPI Subjective Date of Service [...] Has lower back pain from previous surgery. [facility] Medical History Oral candidiasis Encounter for [...] denosumab 60 mg/mL subcutaneous 60 mg subcut [id number] #1 mL 06/28/24 06/29/24 Rx syringe (Prolia) [...] applicable) CC: Dr. Jerrica Marshall MD ~ [facility]05-21-2025 Progress note Author Ernesto Jaramillo [facility] Note Date/Time June 29, 2024 10:57 am [facility] [place] [address] OFFICE VISIT Date of Service: 06/29/24 1017 MR#: [id number] Acct: [id number] Name: MARY VALIENTE Rep #: [id number] : 1960 From: Ernesto Jaramillo MD Age/Sex: 63/F Location: [facility] Status: Signed HPI Subjective Date of Service [...] Has lower back pain from previous surgery. [facility] Medical History Oral candidiasis Encounter for [...] denosumab 60 mg/mL subcutaneous 60 mg subcut [id number] #1 mL 06/28/24 06/29/24 Rx syringe (Prolia) [...] applicable) CC: Dr. Jerrica Marshall MD ~ [employer] [facility] Work Phone: 1(820) 733-660404-22-2025 Evaluation note* Diagnosis Onset Date Resolution Status [...] loss, non-intentional acute August 26, 2024 1:20pm [facility] Work Phone: 1(260) 633-496504-22-2025 Evaluation note* Diagnosis Onset Date Resolution Status [...] loss, non-intentional acute September 14, 2024 2:07pm [facility] Work Phone: 1(478) 549-446003-25-2025 Evaluation note* Diagnosis Onset Date Resolution Status [...] grade I resolved June 29, 2024 9:00am [facility] Work Phone: 1(180) 540-328703-25-2025 Evaluation note* Diagnosis Onset Date Resolution Status [...] non-intentional resolve d August 26, 2024 1:20pm [facility] Work Phone: 1(605) 614-212102-24-2025 Telephone encounter Note* Telephone Encounter - Valorie Oh APRN.CNP - 04/04/2024 12:34 PM EST Called the cancer center, to speak with nurse Anais, no answer left a detailed VM, including the office phone number for return call. Valorie Oh, MSN, AGP-TOWER CRANE OPERATOR [facility] Endocrinology - [place] [facility] Work Phone: 1(290) 942-189402-24-2025 Miscellaneous Notes* Telephone Encounter - Valorie Oh APRN.CNP - 04/04/2024 12:34 PM EST Called the cancer center, to speak with nurse Anais, no answer left a detailed VM, including the office phone number for return call. Valorie Oh, MSN, AGP-TOWER CRANE OPERATOR [facility] * Telephone Encounter - Robyn Singh - [...] up with patient, received a call from [facility] regarding same issue. office will send imaging reports, last office note, and latest blood work results. Office wants to know if they should push the imaging to [facility]. Please call Anais at the cancer [...] (Caregivers Name): na If No - Which [facility] Leadership Barking Machine Feeder Did You Speak With Regarding This Patient: na Was an appointment scheduled (Y/N): na Reason patient was requesting visit (RFV/signs and symptoms/diagnosis) : follow up Person calling if other than patient: pt/ Anais for [facility] Return call to if other than patient: pt Best contact number: [phone]/ [phone] Thank you, Maria Isabel Bowen April 04, 2024 10:22 AM [facility] Telephone encounter Note * Telephone Encounter - Robyn Singh - 04/04/2024 11:12 AM EST Please see call center message and advise patient. Robyn Singh April 04, 2024 11:12 AM [facility]02-24-2025 Telephone encounter Note* Telephone Encounter - [...] up with patient, received a call from [facility] regarding same issue. office will send imaging reports, last office note, and latest blood work results. Office wants to know if they should push the imaging to [facility]. Please call [facility] at [facility] before calling patient. Was Patient Referred to [facility]/Seek Emergency Treatment (Y/N): na Did Patient Agree (Y/N): na Was An Attempt Made To Transfer The Patient To The Office (Y/N): na Were You Able To Reach Someone At The Office (Y/N): na If Yes - Patient Was Transferred To (Caregivers Name): na If No - Which [facility] Leadership Barking Machine Feeder Did You Speak With Regarding This Patient: na Was an appointment scheduled (Y/N): na Reason patient was requesting visit (RFV/signs and symptoms/diagnosis) : follow up Person calling if other than patient: pt/ Anais for [facility] Return call to if other than patient: pt Best contact number: [phone]/ [phone] Thank you, Maria Isabel Bowen April 04, 2024 10:22 AM [facility]02-18-2025 Telephone encounter Note* Telephone Encounter - Jassi Joshi - 03/29/2024 7:12 AM EST Recent labs uploaded to patients chart Jassi Joshi [facility]02-18-2025 Miscellaneous Notes* Telephone Encounter - Jassi Joshi - 03/29/2024 7:12 AM EST Recent labs uploaded to patients chart Jassi Joshi [facility] History of Present illness Narrative* Valorie Oh APRN.TOWER CRANE OPERATOR - 03/28/2024 10:30 AM EST Images from the original note were not included. ENDOCRINE OSTEOPOROSIS FOLLOW UP SUBJECTIVE: LAST SEEN: 09/28/2023 INITIAL EVALUATION:09/28/2023 TIMELINE: Diagnosed with osteopenia/osteoporosis 09/05/2021 Establish care with [facility] 09/28/2023 Patient seen at the request of / referral from: Rosio Butterfield I, MD [facility] CHIEF COMPLAINT: Patient presents for management of her osteoporosis History of Present Illness Mary Valiente is a 62 year old female who presents in referral for my opinion regarding evaluation and management of osteoporosis. Patient was [facility]field [facility]Patient stated that she has screws loose in her back and she has a lot of pain because of that. Sheis not felling good at all. Patient went to ER yesterday at [facility] for stomach pain. Patient is on [...] for osteoporosis management. She is on Prolia [id number] given at her PCP office. In November 2023 she was diagnosed with non hodgkin's lymphoma. She started treatment with chemo in December at [facility]. Also she stated that her daughter was [...] falls or fractures. [facility]ER CENTER PHONE NUMBER: [phone] Upcoming dental procedures planned? NO Participating in [...] 11/13/2023 DXA: AXIAL SKELETON [facility] IMPRESSION: THE LOWEST T-SCORE IS -3.6 [...] Hip Fracture: 2.6% 09/05/2021 DXA: AXIAL SKELETON [facility] Review of Systems GENERAL: feeling well without [...] No history of dysuria, frequency or incontinence MANAGING BROKER: Negative for abnormal vaginal bleeding, abnormal vaginal [...] - Will contact the Cancer Center at [phone] to see if OK to start tx for OP now or to wait until she is done. - Patient denies treatment with an anabolic - I can't inject my self everyday - She prefers [facility] - Location [facility], after I will speak with her oncologist. 4. Vitamin D deficiency - ICD9: 268.9, ICD10: E55.9 - Continue with Vit D3, 2,000 international unit(s) daily 5. Non-Hodgkin lymphoma in adult (HCC) - ICD9: 202.80, ICD10: C85.90 - Dx in 11/2023 - Started chemo in 12/2023 - She is going at [facility] [phone] for treatment and to f/u with her [...] implications of them including short term and equipment operator intermodal yard complications and impact on health and survival [...] FOLLOW UP: in 6 mo ARTHUR Arteaga, AGP-TOWER CRANE OPERATOR [facility] End[facility] - [place] Any part of this document that has been added/copied & pasted from other documents has been reviewed for accuracy and updated as appropriate at the time of the patient encounter documented in this encounterWestern Reserve Hospital02-17-2025 NoteHNO ID: [id number] Author: VALORIE OH APRN.CNP Service: ? Author Type: Nurse Practitioner Type: Progress Notes Filed: 05/05/2024 17:00 Note Text: ENDOCRINE OSTEOPOROSIS FOLLOW UP SUBJECTIVE: LAST SEEN: 09/28/2023 INITIAL EVALUATION:09/28/2023 TIMELINE: Diagnosed with osteopenia/osteoporosis 09/05/2021 Establish care with Endocrinology 09/28/2023 Patient seen at the request of / referral from: Rosio Butterfield I, MD [facility] CHIEF COMPLAINT: Patient presents for management of her osteoporosis History of Present Illness Mary Valiente is a 62 year old female who presents in referral for my opinion regarding evaluation and management of osteoporosis. Patient was referred by Rosio Butterfield I, MD [facility]. Patient stated that she has screws loose in her back and she has a lot of pain because of that. She is not felling good at all. Patient went to ER yesterday at [facility] for stomach pain. Patient is on [...] started treatment with chemo in December at [facility]. Also she stated that her daughter was [...] falls or fractures. [facility] PHONE NUMBER: [phone] Upcoming dental procedures planned? NO Participating in [...] DXA DUE: 11/13/2025 11/13/2023 DXA: AXIAL SKELETON [facility] - [facility] IMPRESSION: THE LOWEST T-SCORE [...] Hip Fracture: 2.6% 09/05/2021 DXA: AXIAL SKELETON [facility] Review of Systems GENERAL: feeling well without [...] No history of dysuria, frequency or incontinence MANAGING BROKER: Negative for abnormal vaginal bleeding, abnormal vaginal [...] of thoracic wou (more content not included)... [facility]01-28-2025 Evaluation note* Diagnosis Onset Date Resolution [...] grade I resolved June 29, 2024 9:00am [employer] Work Phone: 1(346) 678-865411-25-2024 [facility]10-04-2024 History of Present illness [...] PATIENT PRESENTS WITH AN IMPLANTABLE OR ATTACHED JAIL OFFICER: No RADIOLOGY DEPARTMENT: Bone Density PERIPHERAL IV DATA: Not applicable SIGNED BY: RT Ashok(Regina) November 13, 2023 12:33 PM documented in this encounterWestern Reserve Hospital10-04-2024 NoteHNO ID: [id number] Author: JAMIE COVARRUBIAS RT(R) Service: ? Author [...] PATIENT PRESENTS WITH AN IMPLANTABLE OR ATTACHED JAIL OFFICER: No RADIOLOGY DEPARTMENT: Bone Density PERIPHERAL IV DATA: Not applicable SIGNED BY: RT Ashok(R) November 13, 2023 12:33 [facility]08-21-2024 Telephone encounter Note* Telephone Encounter - Salena Marie RN - 09/30/2023 4:09 PM EDT Patient notified. Salena Marie RN [facility] Work Phone: 1(321) 424-540808-21-2024 Miscellaneous Notes* Telephone Encounter - Salena Marie [...] PCP. Salena Marie RN documented in this encounterWestern Reserve Hospital08-21-2024 Telephone encounter Note * Telephone Encounter - Esteban Joel DO - 09/30/2023 4:06 PM EDT Chart reviewed. Previously on chronic cefadroxil suppression then changed to trimethoprim- sulfamethoxazole daily since 11-07-2022. Recommend: Hold antibiotic for a few days and observe Call the office back next week and see how she does [facility]08-20-2024 Telephone encounter Note* Telephone Encounter - Salena Maire RN - 09/29/2023 1:20 PM EDT Patient [...] symptoms to her PCP. Salena Marie RN [facility]08-19-2024 Telephone encounter Note* Telephone Encounter - Jhoana Judge PSS - 09/28/2023 1:11 PM EDT Referral Coordination Patient scheduled for:DEXA Location:[place] Date: 11-13-23 Time:12:30 Prep for test:no calcium or multi vitamin 24 hr prior to scan Patient informed: Spoke to patient and she voiced understanding Not wed this week,not before MALINI Martinez September 28, 2023 1:11 PM [facility]08-19-2024 Miscellaneous Notes* Telephone Encounter - Jhoana Judge PSS - 09/28/2023 1:11 PM EDT Referral Coordination Patient scheduled for:DEXA Location:[place] Date: 11-13-23 Time:12:30 Prep for test:no calcium or multi vitamin 24 hr prior to scan Patient informed: Spoke to patient and she voiced understanding Not wed this week,not before MALINI Martinez September 28, 2023 1:11 PM * Telephone Encounter - Valorie Oh APRN.CNP - 09/28/2023 10:23 AM EDT Jack Jacksonna, Please schedule her for dxa at [facility]. Thank you Valorie Oh, MSN, AGP-[facility] Endocrinology [facility] documented in this encounterWestern Reserve Hospital08-19-2024 Telephone encounter Note * Telephone Encounter - Juli Rush LPN - 09/28/2023 10:57 AM EDT Spoke to pt's pcp office and was told pt had last prolia injection on 08/10/2023 Juli Rush LPN [facility]08-19-2024 Miscellaneous Notes* Telephone Encounter - Juli Rush LPN - [...] let me know. Thank you ARTHUR Arteaga, [facility] Endocrinology [facility] documented in this encounterWestern Reserve Hospital08-19-2024 Telephone encounter Note * Telephone Encounter - Valorie Oh APRN.CNP - 09/28/2023 10:43 AM EDT Nurses, Please call the PCP's office and ask when patient had the Prolia injection ( last one 2.5 mo ago per pt). Please let me know. Thank you ARTHUR Arteaga, [facility] Work Phone: [phone] Telephone encounter Note* Telephone Encounter - Valorie Oh APRN.CNP - 09/28/2023 10:23 AM EDT Jack Ely, Please schedule her for dxa at [facility]. Thank you ARTHUR Arteaga, [facility] Work Phone: [phone] Instructions* Patient Instructions* Valorie Oh APRN.CNP - [...] your usual activities immediately. documented in this encounterWestern Reserve Hospital08-19-2024 History of Present illness Narrative* Valorie Oh APRN.CNP - 09/28/2023 10:00 AM EDT Images from the original note were not included. ENDOCRINE REFERRAL Osteoporosis and Metabolic Bone Disease New Visit Date of Evaluation:09/28/2023 Patient seen at the request of / referral from:Rosio Butterfield I, MD [facility] RE: Osteoporosis, unspecified osteoporosis type, unspecified pathological [...] by Rosio Butterfield I, MD [facility]. Patient stated that she has screws loose in her back and she has a lot of pain because of that. She is not felling good at all. Patient went to ER yesterday at [facility] for stomach pain. Patient is on treatment with Prolia injection for the past 1.5 years started by her PCP. She had 3 doses so far, tolerates medication well. Last dose 08/10/2023. Never had any fracture in the past. Shehas a new compression fracture on C7. NEXT DXA DUE: NOW 09/05/2021 DXA: AXIAL SKELETON [facility] FRAX 10 YEAR PROBABILITY OF FRACTURE: Major [...] disorders: NO - including hypogonadal states (diabetes, Diller s syndrome, Hyperthyroidism, hyperparathyroidism,De Los Santos/Klinefelter syndrome, [...] - Chemotherapy, or radiation therapy: NO - [place] use: NO - Thiazide use: NO Dental [...] history of dysuria, frequency or incontinence NEPHROLITHIASIS:NO ENDO/MANAGING BROKER: Negative for abnormal vaginal bleeding, abnormal vaginal [...] with routine healing, subsequent encounter - ICD9: [id number], ICD10: M80.00XD (primary diagnosis) 2. Encounter for [...] implications of them including short term and equipment operator intermodal yard complications and impact on health and survival [...] prolia injection on 08/10/2023 SADIE Galvan, MSN, AGP-TOWER CRANE OPERATOR [facility] Endocrinology - [place] documented in this encounterWestern Reserve Hospital08-19-2024 NoteHNO ID: [id number] Author: VALORIE OH APRN.CNP Service: ? Author Type: Nurse Practitioner Type: Progress Notes Filed: 11/17/2023 14:08 Note Text: ENDOCRINE REFERRAL Osteoporosis and Metabolic Bone Disease New Visit Date of Evaluation:09/28/2023 Patient seen at the request of / referral from:Rosio Butterfield I, MD [facility] RE: Osteoporosis, unspecified osteoporosis type, unspecified [...] will communicate my recommendations and findings via [employer] CC: Bone Health evaluation and counseling. HPI: [...] all. Patient went to ER yesterday at [facility] for stomach pain. Patient is on treatment with Prolia injection for the past 1.5 years started by her PCP. She had 3 doses so far, tolerates medication well. Last dose 08/10/2023. Never had any fracture in the past. She has a new compression fracture on C7. NEXT DXA DUE: NOW 09/05/2021 DXA: AXIAL SKELETON [facility] FRAX 10 YEAR PROBABILITY OF FRACTURE: Major [...] disorders: NO - including hypogonadal states (diabetes, Diller?s syndrome, Hyperthyroidism, hyperparathyroidism, De Los Santos/Klinefelter syndrome, [...] - Chemotherapy, or radiation therapy: NO - [place] use: NO - Thiazide use: NO Dental [...] history of dysuria, frequency or incontinence NEPHROLITHIASIS:NO ENDO/MANAGING BROKER: Negative for abnormal vaginal bleeding, abnormal vaginal discharge. ENDO/MUS (more content not included)...[facility]08-15-2024 Telephone encounter Note* Telephone Encounter - [...] follow up. She understands. Tyler Epstein RN [facility]08-15-2024 Miscellaneous Notes* Telephone Encounter - Tyler [...] understands. Tyler Epstein RN documented in this encounterWestern Reserve Hospital08-14-2024 Telephone encounter Note * Telephone Encounter - Tiffanie Shah RN - 09/23/2023 9:50 AM EDT Spoke with Concepcion ([phone]) from Dr. Marshall's office. She stated that [...] so they are updated. Tiffanie Shah RN [facility]08-14-2024 Miscellaneous Notes* Telephone Encounter - Tiffanie Shah RN - 09/23/2023 9:50 AM EDT Spoke with Concepcion ([phone]) from Dr. Marshall's office. She stated that [...] updated. Tiffanie Shah RN documented in this encounterWestern Reserve Hospital08-13-2024 Telephone encounter Note * Telephone Encounter - Tyler Epstein RN - 09/22/2023 12:56 PM EDT Received a voicemail from Concepcion with Dr. Marshall's office. [phone] Attempted to call back and there was no answer. LVM asking for call back. Tyler Epstein RN [facility]08-13-2024 Miscellaneous Notes* Telephone Encounter - Tyler Epstein RN - 09/22/2023 12:56 PM EDT Received a voicemail from Concepcion with Dr. Marshall's office. [phone] Attempted to call back and there was no answer. LVM asking for call back. Tyler Epstein RN documented in this encounterWestern Reserve Hospital08-12-2024 History of Present illness Narrative* Rosio [...] Age: [age] year old Sex: female MRN/E# [id number] Last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 alcohol or drug abuse patient.[facility] HospitalIn the event this information is protected by the Federal Confidentiality of Alcohol and Drug Abuse Patient Records regulations: The Federal rules restrict any use of the information to criminally investigate or prosecute any alcohol or drug abuse patient.[facility] HospitalIn the event this information is protected by the Federal Confidentiality of Alcohol and Drug Abuse Patient Records regulations: The Federal rules restrict any use of the information to criminally investigate or prosecute any alcohol or drug abuse patient.[facility] HospitalIn the event this information is protected by the Federal Confidentiality of Alcohol and Drug Abuse Patient Records regulations: The Federal rules restrict any use of the information to criminally investigate or prosecute any alcohol or drug abuse patient.[facility] HospitalIn the event this information is protected by the Federal Confidentiality of Alcohol and Drug Abuse Patient Records regulations: The Federal rules restrict any use of the information to criminally investigate or prosecute any alcohol or drug abuse patient.[facility] HospitalIn the event this information is protected by the Federal Confidentiality of Alcohol and Drug Abuse Patient Records regulations: The Federal rules restrict any use of the information to criminally investigate or prosecute any alcohol or drug abuse patient.[facility] HospitalIn the event this information is protected by the Federal Confidentiality of Alcohol and Drug Abuse Patient Records regulations: The Federal rules restrict any use of the information to criminally investigate or prosecute any alcohol or drug abuse patient.[facility] HospitalIn the event this information is protected by the Federal Confidentiality of Alcohol and Drug Abuse Patient Records regulations: The Federal rules restrict any use of the information to criminally investigate or prosecute any alcohol or drug abuse patient.[facility] HospitalIn the event this information is protected by the Federal Confidentiality of Alcohol and Drug Abuse Patient Records regulations: The Federal rules restrict any use of the information to criminally investigate or prosecute any alcohol or drug abuse patient.[facility] HospitalIn the event this information is protected by the Federal Confidentiality of Alcohol and Drug Abuse Patient Records regulations: The Federal rules restrict any use of the information to criminally investigate or prosecute any alcohol or drug abuse patient.[facility] HospitalIn the event this information is protected by the Federal Confidentiality of Alcohol and Drug Abuse Patient Records regulations: The Federal rules restrict any use of the information to criminally investigate or prosecute any alcohol or drug abuse patient.[facility] HospitalIn the event this information is protected by the Federal Confidentiality of Alcohol and Drug Abuse Patient Records regulations: The Federal rules restrict any use of the information to criminally investigate or prosecute any alcohol or drug abuse patient.[facility] HospitalIn the event this information is protected by the Federal Confidentiality of Alcohol and Drug Abuse Patient Records regulations: The Federal rules restrict any use of the information to criminally investigate or prosecute any alcohol or drug abuse patient.[facility] HospitalIn the event this information is protected by the Federal Confidentiality of Alcohol and Drug Abuse Patient Records regulations: The Federal rules restrict any use of the information to criminally investigate or prosecute any alcohol or drug abuse patient.[facility] HospitalIn the event this information is protected by the Federal Confidentiality of Alcohol and Drug Abuse Patient Records regulations: The Federal rules restrict any use of the information to criminally investigate or prosecute any alcohol or drug abuse patient.[facility] HospitalIn the event this information is protected by the Federal Confidentiality of Alcohol and Drug Abuse Patient Records regulations: The Federal rules restrict any use of the information to criminally investigate or prosecute any alcohol or drug abuse patient.[facility] HospitalIn the event this information is protected by the Federal Confidentiality of Alcohol and Drug Abuse Patient Records regulations: The Federal rules restrict any use of the information to criminally investigate or prosecute any alcohol or drug abuse patient.[facility] HospitalIn the event this information is protected by the Federal Confidentiality of Alcohol and Drug Abuse Patient Records regulations: The Federal rules restrict any use of the information to criminally investigate or prosecute any alcohol or drug abuse patient.[facility] HospitalIn the event this information is protected by the Federal Confidentiality of Alcohol and Drug Abuse Patient Records regulations: The Federal rules restrict any use of the information to criminally investigate or prosecute any alcohol or drug abuse patient.[facility] HospitalIn the event this information is protected by the Federal Confidentiality of Alcohol and Drug Abuse Patient Records regulations: The Federal rules restrict any use of the information to criminally investigate or prosecute any alcohol or drug abuse patient.[facility] HospitalIn the event this information is protected by the Federal Confidentiality of Alcohol and Drug Abuse Patient Records regulations: The Federal rules restrict any use of the information to criminally investigate or prosecute any alcohol or drug abuse patient.[facility] HospitalIn the event this information is protected by the Federal Confidentiality of Alcohol and Drug Abuse Patient Records regulations: The Federal rules restrict any use of the information to criminally investigate or prosecute any alcohol or drug abuse patient.[facility] HospitalIn the event this information is protected by the Federal Confidentiality of Alcohol and Drug Abuse Patient Records regulations: The Federal rules restrict any use of the information to criminally investigate or prosecute any alcohol or drug abuse patient.[facility] HospitalIn the event this information is protected by the Federal Confidentiality of Alcohol and Drug Abuse Patient Records regulations: The Federal rules restrict any use of the information to criminally investigate or prosecute any alcohol or drug abuse patient.[facility] Reason for Visit (unrecogniz ed section and content) Reason Comments Established Patient Reason Comments Returning Patient's Call Reason Comments 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 Date Comments [...] THORACIC SPINE W/O CONTRAST MATERIAL Bryanna Webber, 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 [address] [facility] [place] [address] [place] [address] Referral ID Status Reason Start Date Expiration Date V isits Requested Visits Authorized [id number] Closed Auto-Generate d Referral 09/14/2023 11/03/2023 1 1 Reason Comments Follow Up Reason Comments Appointment DXA Reason Comments Medication Problem Prolia Reason Comments Osteoporosis Specialty Diagnoses / Procedures Referred By Contac t Referred To Contact Rheumatology Diagnoses Osteoporosis, unspecified osteoporosis type, unspecified pathological fracture presence Procedures CONSULT TO OSTEOPOROSIS CLINIC (AG) Rosio Butterfield I, MD [address] [facility] [place] [address] Referral ID Status Reason Start Date Expiration Date Visits Requested Visits Authorized [id number] Ref Not Required PCP Requested Referral 09/24/2023 09/23/2024 1 1 Reason Comments Osteoporosis Reason Comments Results, Lab Scheduled Active and Recently Administ ered Medications (unrecognized section and content) Medication Order 01/04/2023 01/05/2023 01/06/2023 HYDROmorphone (DILAUDID) 1 mg/mL injection (COMPLETED) 0.5 mg, Intravenous Push, ONCE, 1 dose, On Thu01/06/23 at 1214 1151 (Given - Provid er: Nica Fiarchild) iohexol (OMNIPAQUE) 350 MG/ML injection (COMPLETED) 100 mL, Intravenous Push, Once at Radiology exam, 1 dose, Starting on Thu01/06/23 at 1227, Until Thu01/06/23 at 1227, Imaging Protocol Orders 1227 (Given - Provid er: Georgina Cross - Comment: [id number]) ondansetron (ZOFRAN) 4 MG/2ML injection (COMPLETED) 4 [...] BE BASED ON THE PRIMARY CLINICAL RECORDS. [facility] [employer] [facility] provides no warranty or guarantee of the accuracy or completeness of information in this document.
== END 2025-02-03 23:59 | disposition home or self-care (01) ==
LOC: MEDOUTP 11:03
PROVIDERS: PCP Internal Medicine; Referring Provider Internal Medicine; Visit Provider Internal Medicine
DX: M81.0 Age-related osteoporosis without current pathological fracture (principal)
CPT/HCPCS: 96372; J3111